=== PATIENT | female | born 1950 | race Caucasian/White ===

== ENCOUNTER 2016-11-22 20:43 | Inpatient (IN) | payer OTHER ==
[~2016-11-22] VITALS: Ht 139.7 cm; Wt 51.0 kg
[~2016-11-22 20:43] MED LIST: ALBUAER2 INH; AMLO5TAB4 PO; ASPI81TA28 PO; ATEN100T PO; DULA1INJ; EFF75 PO; HYDR-4313 PO; LEVO50TA PO; LISI-461 PO; LORA1TAB13 PO; SIMV40TA2 PO; TOPI100T20 PO; VENL150C56 PO
[2016-11-22] MEDS ORDERED: LSNP/30 PO (21:07)
[2016-11-22] MEDS ORDERED: SNG10 PO (21:07)
[2016-11-22] MEDS ORDERED: SODIUM CHLORIDE 0.9% 1000ML 1,000 ML IV STA (21:26)
[2016-11-22] MEDS ORDERED: ONDANSETRON INJ 2 MG/ML 2 ML VIAL IV STA (21:26)
[2016-11-22] MEDS ORDERED: ACETAMINOPHEN 500 MG TAB PO STA (21:26)
--- NOTE | 2016-11-22 21:36 | EMERGENCY ROOM VISIT NOTE ---
History Report prepared by Cyndi: Irwin Wong Under the Supervision of: Dr. Melvin Uribe D.O. First contact with patient: 21:13 Chief Complaint: DIARRHEA Stated Complaint: DIARRHEA, COUGH Nursing Triage Summary: PT presents with generalized illness, since . PT presents with cough/fever, lungs are decreased with rhonchi all throughout entire payen. PT has sore throat, red in appearance. PT also has abd tenderness to bilateral upper quadrants, with hyperactive bowel sounds in all quadrants, PT had diarrhea X 6 today. PT upon arrival noted to be lethargic, but oriented X 3 History of Present Illness The patient is a 66 year old female who presents to the Emergency Room with complaints of diarrhea that began two months ago. This history is limited due to the patient's mild confusion. The patient has been having this diarrhea with a cough, sore throat, headache, nausea, vomiting, rhinorrhea, and fever. Her illness has been persistent. The patient was on antibiotics, but she does not remember why. The patient is very lethargic. She denies any urinary symptoms. She has not taken any medications for her symptoms. She does not know if she has had a problem with a stool infection before. The patient takes Synthroid, an antidepressant, Topamax, and medications to help her blood pressure. Source of History: patient History Limited By: AMS Onset: two months ago Position: other (GI) Symptom Intensity: moderate Quality: other (diarrhea) Timing: other (persistent) Associated Symptoms: + abdominal pain, + cough, + fevers, + headache, + nausea, + sorethroat, + vomiting, No urinary symptoms Note: The patient has been confused lately. Review of Systems Limited due to mild confusion. Past Medical & Surgical Medical Problems: (1) Altered mental status (2) ASTHMA, UNSPECIFIED (3) DIAB SERGO WO COMPL, TYPE II OR UNSPEC TYPE, NOT UNCNTRLD (4) HX OF BREAST MALIGNANCY (5) HYPERLIPIDEMIA NEC/NOS (6) SIRS (systemic inflammatory response syndrome) (7) SYNCOPE AND COLLAPSE Family History Cancer Diabetes mellitus Hypertension Kidney disease Lung disease Seizures Social History Smoking Status: Never Smoker Alcohol Use: none Drug Use: none Marital Status: single Housing Status: lives with family Occupation Status: unemployed Current/Historical Medications Scheduled Amlodipine Besylate (Norvasc), 5 MG PO DAILY Aspirin (Aspirin Ec), 81 MG PO DAILY Atenolol (Tenormin), 100 MG PO DAILY Dulaglutide (Trulicity), weekly Levothyroxine Sodium (Synthroid), 75 MCG PO DAILY Lisinopril (Zestril), 30 MG PO BID Montelukast Sod (Montelukast Sodium), 10 MG PO Q2D Simvastatin (Zocor), 30 MG PO QPM Topiramate (Topamax), 200 MG PO BID Venlafaxine Hcl (Effexor), 75 MG PO DAILY Venlafaxine Hcl (Effexor Extended Rel), 1 CAP PO DAILY Scheduled PRN Acetaminophen/Hydrocodone (Hydrocodone/Acetaminophen 5-325 mg), 1 TAB PO DAILY PRN for Pain Albuterol (Ventolin Hfa), 1-2 PUFFS INH Q4-6HRS PRN for SOB/Wheezing Lorazepam (Lorazepam), 0.5-1 MG PO DAILY PRN for Anxiety Allergies Coded Allergies: Fentanyl (Verified Allergy, Severe, MARKED CONFUSION W/ ABSENCE OF SEDATION, 11/06/14) Midazolam (Verified Allergy, Severe, MARKED CONFUSION W/ ABSENCE OF SEDATION, 11/06/14) Lamotrigine (Verified Allergy, Unknown, RASH, 11/06/14) Phenytoin (Verified Allergy, Unknown, RASH, 11/06/14) Physical Exam Vital Signs Date Time Temp Pulse Resp B/P Pulse Ox O2 Delivery O2 Flow Rate FiO2 11/22/16 23:06 88 133/67 97 Room Air 11/22/16 21:02 99 11/22/16 20:54 100 Room Air 11/22/16 20:49 38.1 103 22 175/140 100 Room Air Physical Exam GENERAL: Patient is awake and mildly anxious appearing. Does not appear to be in pain, but appears to be somewhat distracted. EYES: The conjunctivae are clear. The pupils are round and reactive. EARS, NOSE, MOUTH AND THROAT: The nose is without any evidence of any deformity. Mucous membranes are dry tongue is midline NECK: The neck is nontender and supple. RESPIRATORY: Diminished throughout, scattered rhonchi. No tachypnea or conversational dyspnea. CARDIOVASCULAR: Regular rate and rhythm noted there no murmurs rubs or gallops normal S1 normal S2 GASTROINTESTINAL: The abdomen is soft. Bowel sounds are present in all quadrants. Abdomen is diffusely tender. No specific guarding or rigidity. MUSCULOSKELETAL/EXTREMITIES: There is no evidence of gross deformity full range of motion is noted in the hips and shoulders. Trace bilateral pedal edema. SKIN: There is no obvious evidence of any rash. There are no petechiae, pallor or cyanosis noted. NEUROLOGIC: Awake, alert, oriented to person but not place, time, or situation. Pressured to answer questions. Medical Decision & Procedures ER Provider Diagnostic Interpretation: Radiology results per my review and radiologist interpretation: CHEST ONE VIEW PORTABLE CLINICAL HISTORY: Sepsis COUGH COMPARISON STUDY: 03/31/2015 FINDINGS: The cardiac and mediastinal contours are normal. There is no evidence of focal pulmonary consolidation. There is no evidence of failure. No pleural effusions are visualized.[ IMPRESSION: No active disease in the chest. Electronically signed by: Zane Gates M.D. 11/22/2016 9:55 PM Dictated Date/Time: 11/22/2016 9:[address] of the head as well as the abdomen and pelvis were obtained in the emergency department. The report reviewed. Preliminary Findings Only See Final Report For Complete Findings CT HEAD: Prior from 11/15/[address] from 03/16/2008. No evidence of acute intracranial abnormality. Volume loss and small vessel disease. Paranasal sinus disease with fluid levels in the frontal sinuses, ethmoid air cells and sphenoid sinuses. May represent acute sinusitis. Mastoid air cells are clear. CT ABDOMEN & PELVIS: Prior from 12/28/2014 Noncontrast study Mild dilation of the left ureter and asymmetric left perinephric stranding. No obvious obstructing calculus. DDX includes recently passed calculus, infection, nonvisualized obstructing calculus or lesion. Normal appendix. Small amount of free fluid in the pelvis. No bowel obstruction Similar multiple small retroperitoneal nodes up to 8 mm short axis. Nonspecific. Radiologist: Zev Nevarez M.D. Study ready at 23:09 and initial results transmitted at 23:35 Laboratory Results 11/22/16 20:55 Red Blood Count 3.65, Mean Corpuscular Volume 85.5, Mean Corpuscular Hemoglobin 30.1, Mean Corpuscular Hemoglobin Concent 35.3, Mean Platelet Volume 10.8, Neutrophils (%) (Auto) 81.7, Lymphocytes (%) (Auto) 7.5, Monocytes (%) (Auto) 10.4, Eosinophils (%) (Auto) 0.0, Basophils (%) (Auto) 0.1, Neutrophils # (Auto ) 16.14, Lymphocytes # (Auto) 1.49, Monocytes # (Auto) 2.05, Eosinophils # (Auto ) 0.00, Basophils # (Auto) 0.01 11/22/16 20:55 Test 11/22/16 00:00 11/22/16 20:55 11/22/16 22:13 Influenza Type A Antigen Neg for Influ A (NEG) Influenza Type B Antigen Neg for Influ B (NEG) White Blood Count 19.75 K/uL (4.8-10.8) Red Blood Count 3.65 M/uL (4.2-5.4) Hemoglobin 11.0 g/dL (12.0-16.0) Hematocrit 31.2 % (37-47) Mean Corpuscular Volume 85.5 fL (80-100) Mean Corpuscular Hemoglobin 30.1 pg (25-34) Mean Corpuscular Hemoglobin Concent 35.3 g/dl (32-36) Platelet Count 232 K/uL (130-400) Mean Platelet Volume 10.8 fL (7.4-10.4) Neutrophils (%) (Auto) 81.7 % Lymphocytes (%) (Auto) 7.5 % Monocytes (%) (Auto) 10.4 % Eosinophils (%) (Auto) 0.0 % Basophils (%) (Auto) 0.1 % Neutrophils # (Auto) 16.14 K/uL (1.4-6.5) Lymphocytes # (Auto) 1.49 K/uL (1.2-3.4) Monocytes # (Auto) 2.05 K/uL (0.11-0.59) Eosinophils # (Auto) 0.00 K/uL (0-0.5) Basophils # (Auto) 0.01 K/uL (0-0.2) RDW Standard Deviation 41.6 fL (36.4-46.3) RDW Coefficient of Variation 13.2 % (11.5-14.5) Immature Granulocyte % (Auto) 0.3 % Immature Granulocyte # (Auto) 0.06 K/uL (0.00-0.02) Erythrocyte Sedimentation Rate 58 mm/hr (0-21) Prothrombin Time 12.4 SECONDS (9.0-12.0) Prothromb Time International Ratio 1.2 (0.9-1.1) Activated Partial Thromboplast Time 32.9 SECONDS (21.0-31.0) Partial Thromboplastin Ratio 1.3 Anion Gap 16.0 mmol/L (3-11) Est Creatinine Clear Calc Drug Dose 17.8 ml/min Estimated GFR () 29.2 Estimated GFR (Non- 25.2 BUN/Creatinine Ratio 14.7 (10-20) Calcium Level 8.8 mg/dl (8.5-10.1) Phosphorus Level 1.3 mg/dl (2.5-4.9) Magnesium Level 1.7 mg/dl (1.8-2.4) Total Bilirubin 0.5 mg/dl (0.2-1) Aspartate Amino Transf (AST/SGOT) 17 U/L (15-37) Alanine Aminotransferase (ALT/SGPT) 18 U/L (12-78) Alkaline Phosphatase 68 U/L (45-117) Total Creatine Kinase 147 U/L (26-192) Creatine Kinase MB 0.6 ng/ml (0.5-3.6) Creatine Kinase MB Ratio 0.4 (0-3.0) Troponin I < 0.015 ng/ml (0-0.045) C-Reactive Protein 27.90 mg/dl (0-0.29) Total Protein 7.0 gm/dl (6.4-8.2) Albumin 3.0 gm/dl (3.4-5.0) Globulin 4.0 gm/dl (2.5-4.0) Albumin/Globulin Ratio 0.8 (0.9-2) Lipase 139 U/L (73-393) Urine Color YELLOW Urine Appearance CLOUDY (CLEAR) Urine pH 6.0 (4.5-7.5) Urine Specific [place] 1.012 (1.000-1.030) Urine Protein 2+ (NEG) Urine Glucose (UA) NEG (NEG) Urine Ketones 1+ (NEG) Urine Occult Blood 1+ (NEG) Urine Nitrite NEG (NEG) Urine Bilirubin NEG (NEG) Urine Urobilinogen NEG (NEG) Urine Leukocyte Esterase MODERATE (NEG) Urine WBC (Auto) >30 /hpf (0-5) Urine RBC (Auto) 5-10 /hpf (0-4) Urine Hyaline Casts (Auto) 1-5 /lpf (0-5) Urine Epithelial Cells (Auto) 10-20 /lpf (0-5) Urine Bacteria (Auto) 1+ (NEG) Laboratory results per my review. Medications Administered Medications (Trade) Dose Ordered Sig/Garcia Route Start Time Stop Time Status Last Admin Dose Admin Sodium Chloride (Nss 1000ml) 1,000 ml @ 999 mls/hr Q1H1M STAT IV 11/22/16 21:26 11/22/16 22:26 DC 11/22/16 22:49 999 MLS/HR Ondansetron HCl (Zofran Inj) 4 mg NOW STAT IV 11/22/16 21:26 11/22/16 21:29 DC 11/22/16 22:15 4 MG Acetaminophen (Tylenol Tab) 1,000 mg ONE STAT PO 11/22/16 21:26 11/22/16 21:29 DC 11/22/16 22:16 1,000 MG Magnesium Sulfate (Magnesium Sulfate) 1 gm NOW STAT IV 11/22/16 22:40 11/22/16 22:41 DC 11/22/16 22:40 1 GM ECG Indication: altered mental status Rate (beats per minute): 99 Rhythm: normal sinus Findings: no ectopy, other (No acute ST segment abnormalities) Comparison ECG Date: 03 April 2015 Change: no significant change ED Course 2112: The patient was evaluated in room B3. A complete history and physical examination were performed. 2125: Tylenol Tab 1,000 mg PO, Zofran Inj 4 mg IV, NSS 1,000 ml @ 999 mls/hr IV 2238: Levofloxacin 750 mg IV 2240: Magnesium Sulfate 1 gm IV 2250: The patient's sister in law is now in the room. She is concerned that the patient is more confused and lethargic than usual. 5: Upon reevaluation, the patient is resting. I discussed results and treatment plan with her and her sister in law. They verbalizes agreement and understanding. I spoke with Dr. Ayon of the [facility]. The patient will be evaluated for further management and care. Medical Decision Differential diagnosis: Etiologies such as viral syndrome, otitis, pharyngitis, pneumonia, influenza, meningitis, urinary tract infection, sepsis, bacteremia, as well as others were entertained. Nursing notes reviewed. Additional history was obtained from the patient's [id number]. The patient is a 66-year-old female who presented to emergency department with multiple complaints. She appeared to have a fever but was complaining of other complaints such as diarrhea or abdominal pain and headache. The patient started on IV fluids and IV antibiotics numerous department. She had what appeared to be a urinary tract infection on urinalysis. She was found have a very elevated white blood cell count and signs of pyelonephritis on CT the abdomen and pelvis. I discussed the patient's laboratory and radiographic studies with her and her [id number]. She was feeling much better on subsequent reevaluation. I also discussed his case with the on-call [facility] hospitalist group. They have agreed to evaluate the patient in the emergency department for further management and disposition. Consults Time Called: [phone] Consulting Physician: Dr. Gabo NIEVES Returned Call: [phone] He will be evaluating the patient for further management. Impression Primary Impression: Altered mental status Additional Impressions: UTI (urinary tract infection) Fever Diffuse abdominal pain Pansinusitis Scribe Attestation The scribe's documentation has been prepared under my direction and personally reviewed by me in its entirety. I confirm that the note above accurately reflects all work, treatment, procedures, and medical decision making performed by me. Departure Information Dispostion Being Evaluated By Hospitalist Referrals Janelle Mariano MD (PCP) Patient Instructions My [facility] Problem Qualifiers
[2016-11-22 21:37] LABS: HEMATOCRIT 31.2 % (37-47); MEAN CELL VOLUME 85.5 fL (80-100); MEAN CORPUSCULAR HEMOGLOBIN 30.1 pg (25-34); MEAN CORPUSCULAR HGB CONC 35.3 g/dl (32-36); MEAN PLATELET VOLUME 10.8 fL (7.4-10.4); PLATELET COUNT 232 K/uL (130-400); RED BLOOD COUNT 3.65 M/uL (4.2-5.4); WHITE BLOOD COUNT 19.75 K/uL (4.8-10.8)
[2016-11-22 21:47] LABS: INR 1.2 (0.9-1.1); PARTIAL THROMBOPLASTIN RATIO 1.3; PROTHROMBIN TIME (PATIENT) 12.4 SECONDS (9.0-12.0)
--- NOTE | 2016-11-22 21:57 | DIAGNOSTIC IMAGING REPORT ---
CHEST ONE VIEW PORTABLE CLINICAL HISTORY: Sepsis COUGH COMPARISON STUDY: 03/31/2015 FINDINGS: The cardiac and mediastinal contours are normal. There is no evidence of focal pulmonary consolidation. There is no evidence of failure. No pleural effusions are visualized.[ IMPRESSION: No active disease in the chest. Electronically signed by: Zane Gates M.D. 11/22/2016 9:55 PM Dictated Date/Time: 11/22/2016 9:55 PM
[2016-11-22 22:04] LABS: ALT/SGPT 18 U/L (12-78); BLOOD UREA NITROGEN 29 mg/dl (7-18); BUN/CREATININE RATIO 14.7 (10-20); CALCIUM 8.8 mg/dl (8.5-10.1); CARBON DIOXIDE 16 mmol/L (21-32); CHLORIDE 101 mmol/L (98-107); GLUCOSE 210 mg/dl (70-99); MAGNESIUM 1.7 mg/dl (1.8-2.4); POTASSIUM 3.9 mmol/L (3.5-5.1); SODIUM 133 mmol/L (136-145)
[2016-11-22 22:08] LABS: BASO % 0.1 %; BASO ABS # 0.01 K/uL (0-0.2); COMPLETE YES; IG% 0.3 %; LYMPH % 7.5 %; LYMPH ABS # 1.49 K/uL (1.2-3.4); MONO % 10.4 %; NEUT % 81.7 %
[2016-11-22 22:18] LABS: ALB/GLOB RATIO 0.8 (0.9-2); ALKALINE PHOSPHATASE 68 U/L (45-117); AST/SGOT 17 U/L (15-37); CKMB/CK RATIO 0.4 (0-3.0); PHOSPHORUS 1.3 mg/dl (2.5-4.9)
[2016-11-22 22:35] LABS: MANUAL MICROSCOPIC REQUIRED? NO; REVIEW REQ? NO; URINE APPEARANCE CLOUDY (CLEAR); URINE BILIRUBIN NEG (NEG); URINE COLOR YELLOW; URINE NITRITE NEG (NEG); URINE SPECIFIC GRAVITY 1.012 (1.000-1.030); UROBILINOGEN NEG (NEG); ZZUR CULT IF INDIC CLEAN CATCH YES
[2016-11-22] MEDS ORDERED: LEVAQUIN 750MG / 150ML D5W IV STA (22:39)
[2016-11-22] MEDS ORDERED: MAGNESIUM SULFATE 1GM / D5W 1 GM BAG IV STA (22:40)
[2016-11-22] MEDS ORDERED: CEFEPIME IV 2,000 MG in DEXTROSE 5% 100ML 100 ML IV STA (23:38)
[2016-11-22] MEDS ORDERED: LORAZEPAM 1 MG TAB PO PRN (23:45)
[2016-11-23] VITALS (8 sets, daily range): BP systolic 124–165; BP diastolic 72–91; PULSE 69–100; TEMP 36.5–37.6; O2SAT 96–100; BMI 24.4
[2016-11-23] MEDS ORDERED: ALUMINUM/MAGNESIUM/SIMETH (MAALOX MAX) 30 ML UDC PO PRN
[2016-11-23] MEDS ORDERED: ACETAMINOPHEN 325 MG TAB PO PRN
[2016-11-23] MEDS ORDERED: ONDANSETRON INJ 2 MG/ML 2 ML VIAL IV PRN
[2016-11-23] MEDS ORDERED: EFFSR75 PO (00:08)
[2016-11-23] MEDS ORDERED: OXYCODONE/ACETAMINOPHEN 5-325 TAB PO PRN (00:15)
[2016-11-23] MEDS ORDERED: GUAIFENESIN/CODEINE 100MG/10MG 5ML UDC PO PRN (00:15)
[2016-11-23] MEDS ORDERED: ALBUTEROL 0.083% NEBU SOLN 3 ML VIAL INH PRN (00:15)
[2016-11-23] MEDS ORDERED: GLUCOSE 40% GEL 15 GM TUBE PO PRN (00:30)
[2016-11-23] MEDS ORDERED: GLUCAGON FOR INJ 1 MG VIAL SQ PRN (00:30)
[2016-11-23] MEDS ORDERED: DEXTROSE 50% 50 ML SYR IV PRN (00:30)
[2016-11-23] MEDS ORDERED: GLUCOSE 10 TABS/TUBE PO PRN (00:30)
[2016-11-23] MEDS ORDERED: LEVAQUIN 750MG / 150ML D5W IV ONE (00:49)
[2016-11-23] MEDS ORDERED: SODIUM PHOSPHATE 3 MMOL/1 ML INFUSION IV STA (00:52)
--- NOTE | 2016-11-23 01:05 | History and Physical ---
History & Physical Date & Time of Service: Nov 23, 2016 at 00:06 Chief Complaint: Diarrhea, Cough Primary Care Physician: Janelle Mariano MD History of Present Illness Source: patient, family 66 y/o FM Hx DM2, breast CA, asthma, hypothyroid, HPL, HTN, CKD3. Pt states she has had ongoing medical issues since 09/16. She states that she has had a persistent cough, intermittent diarrhea, headaches, weakness and abdominal pain. She was brought into the ER by her sister who adds that she has been periodically confused and lethargic the past 2 days. She denies significant SOB , CP or dysuria. She was febrile on arrival to the ER. Initial labs reveal leukocytosis, hyperglycemia, ARF and a + UA. Initial imaging reveals pansinusitis and pyelonephritis. She is lethargic but does not display confusion. She states she was treated over one month ago with a course of Augmentin, possibly for sinusitis. Past Medical/Surgical History Medical Problems: (1) ASTHMA, UNSPECIFIED Status: Resolved (2) DIAB SERGO WO COMPL, TYPE II OR UNSPEC TYPE, NOT UNCNTRLD Status: Resolved (3) HX OF BREAST MALIGNANCY Status: Resolved (4) HYPERLIPIDEMIA NEC/NOS Status: Resolved (5) SYNCOPE AND COLLAPSE Status: Resolved 6) Hypothyroid 7) Depression 8) Peripheral Neuropathy 9) CKD 3 Family History Cancer Diabetes mellitus Hypertension Kidney disease Lung disease Seizures Social History Smoking Status: Never Smoker Drug Use: none Marital Status: single Occupational Status: unemployed Immunizations History of Influenza Vaccine: No History of Tetanus Vaccine?: Unknown Tetanus Immunization Date: Jan 30, 2006 Pneumococcal Date: Feb 01, 2003 History of Hepatitis B Vaccine: Unknown Multi-Drug Resistant Organisms History of MDRO: No Allergies Coded Allergies: Fentanyl (Verified Allergy, Severe, MARKED CONFUSION W/ ABSENCE OF SEDATION, 11/06/14) Midazolam (Verified Allergy, Severe, MARKED CONFUSION W/ ABSENCE OF SEDATION, 11/06/14) Lamotrigine (Verified Allergy, Unknown, RASH, 11/06/14) Phenytoin (Verified Allergy, Unknown, RASH, 11/06/14) Home Medications Scheduled Amlodipine Besylate (Norvasc), 5 MG PO DAILY Aspirin (Aspirin Ec), 81 MG PO DAILY Atenolol (Tenormin), 100 MG PO DAILY Dulaglutide (Trulicity), weekly Levothyroxine Sodium (Synthroid), 75 MCG PO DAILY Lisinopril (Zestril), 30 MG PO BID Montelukast Sod (Montelukast Sodium), 10 MG PO Q2D Simvastatin (Zocor), 30 MG PO QPM Topiramate (Topamax), 200 MG PO BID Venlafaxine Hcl (Effexor), 75 MG PO DAILY Venlafaxine Hcl (Effexor Extended Rel), 1 CAP PO DAILY Scheduled PRN Acetaminophen/Hydrocodone (Hydrocodone/Acetaminophen 5-325 mg), 1 TAB PO DAILY PRN for Pain Albuterol (Ventolin Hfa), 1-2 PUFFS INH Q4-6HRS PRN for SOB/Wheezing Lorazepam (Lorazepam), 0.5-1 MG PO DAILY PRN for Anxiety Review of Systems Constitutional: + chills, + fever, + sweats, + weight loss Eyes: No eye pain, No worsening of vision ENT: + nasal symptoms, No hearing loss, No unusual epistaxis Respiratory: + cough, + sputum, + wheezing, No dyspnea at rest, No dyspnea on exertion, No shortness of breath Cardiovascular: No PND, No chest pain, No orthopnea Abdomen: No nausea, No pain Musculoskeletal: No joint pain, No muscle pain Genitourinary - Female: No dysuria, No urinary frequency, No urinary urgency Neurologic: No memory loss Psychiatric: + depression symptoms Endocrine: No fatigue Hematologic / Lymphatic: No abnormal bleeding/bruising Integumentary: No rash Allergic / Immunologic: No environmental allergies Physical Exam Vital Signs Date Time Temp Pulse Resp B/P Pulse Ox O2 Delivery O2 Flow Rate FiO2 11/22/16 23:06 88 133/67 97 Room Air 11/22/16 21:02 99 11/22/16 20:54 100 Room Air 11/22/16 20:49 38.1 103 22 175/140 100 Room Air General Appearance: WD/WN, no apparent distress, + pertinent finding (Pale thin elderly female - no distress - persistent dry cough.) Head: normocephalic, atraumatic Eyes: normal inspection, EOMI ENT: normal ENT inspection, pharynx normal Neck: supple, no adenopathy, thyroid normal Respiratory/Chest: chest non-tender, no respiratory distress, no accessory muscle use, + wheezing Cardiovascular: regular rate, rhythm, no edema, no gallop Abdomen/GI: normal bowel sounds, non tender, soft Back: normal inspection, no CVA tenderness Extremities/Musculoskelatal: normal inspection, no calf tenderness, normal capillary refill Neurologic/Psych: supportability engineer II-XII nml as tested, no motor/sensory deficits, alert, normal mood/affect, normal reflexes, oriented x 3 Skin: normal color, no rash, + pertinent finding (Pallor is present) Diagnostics Laboratory Results Results Past 24 Hours Test 11/22/16 20:55 11/22/16 22:13 Range/Units White Blood Count 19.75 4.8-10.8 K/uL Red Blood Count 3.65 4.2-5.4 M/uL Hemoglobin 11.0 12.0-16.0 g/dL Hematocrit 31.2 37-47 % Mean Corpuscular Volume 85.5 80-100 fL Mean Corpuscular Hemoglobin 30.1 25-34 pg Mean Corpuscular Hemoglobin Concent 35.3 32-36 g/dl Platelet Count 232 130-400 K/uL Mean Platelet Volume 10.8 7.4-10.4 fL Neutrophils (%) (Auto) 81.7 % Lymphocytes (%) (Auto) 7.5 % Monocytes (%) (Auto) 10.4 % Eosinophils (%) (Auto) 0.0 % Basophils (%) (Auto) 0.1 % Neutrophils # (Auto) 16.14 1.4-6.5 K/uL Lymphocytes # (Auto) 1.49 1.2-3.4 K/uL Monocytes # (Auto) 2.05 0.11-0.59 K/uL Eosinophils # (Auto) 0.00 0-0.5 K/uL Basophils # (Auto) 0.01 0-0.2 K/uL RDW Standard Deviation 41.6 36.4-46.3 fL RDW Coefficient of Variation 13.2 11.5-14.5 % Immature Granulocyte % (Auto) 0.3 % Immature Granulocyte # (Auto) 0.06 0.00-0.02 K/uL Erythrocyte Sedimentation Rate 58 0-21 mm/hr Prothrombin Time 12.4 9.0-12.0 SECONDS Prothromb Time International Ratio 1.2 0.9-1.1 Activated Partial Thromboplast Time 32.9 21.0-31.0 SECONDS Partial Thromboplastin Ratio 1.3 Sodium Level 133 136-145 mmol/L Potassium Level 3.9 3.5-5.1 mmol/L Chloride Level 101 98-107 mmol/L Carbon Dioxide Level 16 21-32 mmol/L Anion Gap 16.0 3-11 mmol/L Blood Urea Nitrogen 29 7-18 mg/dl Creatinine 2.00 0.60-1.20 mg/dl Est Creatinine Clear Calc Drug Dose 17.8 ml/min Estimated GFR () 29.2 Estimated GFR (Non- 25.2 BUN/Creatinine Ratio 14.7 10-20 Random Glucose 210 70-99 mg/dl Calcium Level 8.8 8.5-10.1 mg/dl Phosphorus Level 1.3 2.5-4.9 mg/dl Magnesium Level 1.7 1.8-2.4 mg/dl Total Bilirubin 0.5 0.2-1 mg/dl Aspartate Amino Transf (AST/SGOT) 17 15-37 U/L Alanine Aminotransferase (ALT/SGPT) 18 12-78 U/L Alkaline Phosphatase 68 45-117 U/L Total Creatine Kinase 147 26-192 U/L Creatine Kinase MB 0.6 0.5-3.6 ng/ml Creatine Kinase MB Ratio 0.4 0-3.0 Troponin I < 0.015 0-0.045 ng/ml C-Reactive Protein 27.90 0-0.29 mg/dl Total Protein 7.0 6.4-8.2 gm/dl Albumin 3.0 3.4-5.0 gm/dl Globulin 4.0 2.5-4.0 gm/dl Albumin/Globulin Ratio 0.8 0.9-2 Lipase 139 73-393 U/L Urine Color YELLOW Urine Appearance CLOUDY CLEAR Urine pH 6.0 4.5-7.5 Urine Specific [place] 1.012 1.000-1.030 Urine Protein 2+ NEG Urine Glucose (UA) NEG NEG Urine Ketones 1+ NEG Urine Occult Blood 1+ NEG Urine Nitrite NEG NEG Urine Bilirubin NEG NEG Urine Urobilinogen NEG NEG Urine Leukocyte Esterase MODERATE NEG Urine WBC (Auto) >30 0-5 /hpf Urine RBC (Auto) 5-10 0-4 /hpf Urine Hyaline Casts (Auto) 1-5 0-5 /lpf Urine Epithelial Cells (Auto) 10-20 0-5 /lpf Urine Bacteria (Auto) 1+ NEG Microbiology Results 11/22/16 Blood Culture, Received Pending 11/22/16 Blood Culture, Received Pending 11/22/16 Urine Culture, Received Pending Diagnostic Radiology CT head - pansinusitis CT Abd - Pyelonephritis L - ureter dilated - no evidence of colitis Impression Assessment and Plan 66 y/o FM Hx DM2, breast CA, asthma, hypothyroid, HPL, HTN, CKD3. Pt states she has had ongoing medical issues since 09/16. She states that she has had a persistent cough, intermittent diarrhea, headaches, weakness and abdominal pain. She was brought into the ER by her sister who adds that she has been periodically confused and lethargic the past 2 days. She denies significant SOB , CP or dysuria. She was febrile on arrival to the ER. Initial labs reveal leukocytosis, hyperglycemia, ARF and a + UA. Initial imaging reveals pansinusitis and pyelonephritis. 1) Fever - pt has evidence of both UTI w/pyelo and sinusitis - her lungs appear clear so that her cough may be the result of post-nasal drip There is evidence of pyelonephritis as well and her UA is (+). She c/o diarrhea and was recently on a course of Augmentin. Sputum cultures, an MRSA swab, urine cultures and stool/C diff cultures obtained. She will be started empirically on Cefepime and Flagyl. 2) DM - Sliding scale provided 3) Asthma - she is coughing and exhibiting wheezing - we will provide albuterol and start a course of steroids as it appears that her sinusitis has been persistent as well as her cough 4) Hypophosphatemia noted on labs - replaced - will recheck AM 5) Depression - cont Venlafaxine 6) CKD - Creat may be slighly above baseline - will provide IVF and recheck AM Full code - heparin prophylaxis Total time for this admit including chart review - review of labs and records - med rec - discussion with ER MD and pt 40 min Level of Care Telemetry Resuscitation Status FULL RESUSCITATION VTE Prophylaxis VTE Risk Assessment Done? Y/N: Yes Risk Level: Moderate Given or contraindicated: Unfractionated heparin SQ
[2016-11-23] MEDS ORDERED: SODIUM PHOSPHATE INJ 9 MMOL in SODIUM CHLORIDE 0.9% 250ML 250 ML IV SCH (04:30)
[2016-11-23] MEDS: SODIUM CHLORIDE 0.9% 1000ML 1,000 ML IV SCH ×2 (04:39→04:54)
[2016-11-23] MEDS ORDERED: CEFEPIME CONSULT ACTIVE PRN ×2 (04:45)
[2016-11-23] MEDS: METRONIDAZOLE / NSS 500 MG in PREMIXED NSS 100 ML IV SCH ×3 (04:54→20:07)
[2016-11-23] MEDS: METHYLPREDNISOLONE IV 40 MG in SYRINGE 0 ML IV SCH ×3 (05:12→20:07)
[2016-11-23] MEDS: LEVOTHYROXINE 75 MCG TAB PO SCH (06:01)
[2016-11-23] MEDS: HEPARIN SOD 5000 UNIT/0.5 ML CARP SQ SCH ×3 (06:01→21:24)
--- NOTE | 2016-11-23 06:55 | DIAGNOSTIC IMAGING REPORT ---
CT OF THE HEAD WITHOUT CONTRAST CLINICAL HISTORY: Headache. COMPARISON STUDY: MRI of the brain November 15, [address] March 16, 2008. CT DOSE: 786.15 mGy.cm TECHNIQUE: Helical axial images of the head were obtained without IV contrast. Automated exposure control was utilized for the study. FINDINGS: No acute intracranial hemorrhage, midline shift or mass effect is present. Ventricular system is stable. The basilar cisterns are patent. There are no extra-axial collections. White matter hypodensity suggests small vessel disease. There are no findings to suggest acute dural sinus thrombosis or acute territorial infarct. There is extensive mucosal thickening within the ethmoid sinuses with air-fluid levels within the ethmoid and sphenoid sinuses as well as the frontal sinuses. The mastoid air cells are only partially imaged on this exam. IMPRESSION: 1. No acute intracranial findings. 2. Extensive sinus mucosal thickening which suggests acute sinusitis. Electronically signed by: Raj Green M.D. 11/23/2016 6:53 AM Dictated Date/Time: 11/23/2016 6:51 AM
--- NOTE | 2016-11-23 07:40 | DIAGNOSTIC IMAGING REPORT ---
ABDOMEN AND PELVIS CT WITHOUT CONTRAST CT DOSE: HISTORY: diarrhea and fever, vomiting TECHNIQUE: Multiaxial CT images of the abdomen and pelvis were performed without contrast. COMPARISON STUDY: Abdomen and pelvis CT 12/28/2014. FINDINGS: There is a stable 3 mm nodule within the left lower lobe. Therefore, this is likely benign. No pneumoperitoneum. No pneumatosis. No suspicious lytic or blastic osseous lesions. The unenhanced liver, spleen, adrenal glands, gallbladder, pancreas, and right kidney are unremarkable. Asymmetric left-sided perinephric fat stranding/edema. No left-sided hydronephrosis. Bladder is decompressed. The uterus is surgically absent. Trace pelvic free fluid. Suboptimal evaluation for bowel pathology due to the lack of intravenous and oral contrast. However, there is no definite bowel wall thickening or obstruction. The visualized appendix is unremarkable. Slightly prominent left para-aortic lymph nodes which may be reactive. IMPRESSION: 1. Left perinephric fat stranding/edema without hydronephrosis. This could represent a pyelonephritis or recently passed stone. Recommend correlation with urinalysis. 2. No definite bowel wall thickening or obstruction. 3. Trace pelvic free fluid. Electronically signed by: Bertin Butler M.D. 11/23/2016 7:38 AM Dictated Date/Time: 11/23/2016 7:32 AM
[2016-11-23 07:56] LABS: BUN/CREATININE RATIO 14.1 (10-20); CALCIUM 8.2 mg/dl (8.5-10.1); CREATININE 1.8 mg/dl (0.60-1.20); MAGNESIUM 2.2 mg/dl (1.8-2.4); POTASSIUM 3.7 mmol/L (3.5-5.1)
[2016-11-23 08:04] LABS: PHOSPHORUS 1.9 mg/dl (2.5-4.9)
[2016-11-23] MEDS: AMLODIPINE BESYLATE 5 MG TAB PO SCH (08:04)
[2016-11-23] MEDS: ASPIRIN 81 MG ECTAB PO SCH (08:05)
[2016-11-23] MEDS: VENLAFAXINE HCL XR 75 MG CAPXR PO SCH (08:05)
[2016-11-23] MEDS: LISINOPRIL 10 MG TAB PO SCH ×2 (08:06→20:10)
[2016-11-23] MEDS: VENLAFAXINE HCL XR 150 MG CAPXR PO SCH (08:06)
[2016-11-23] MEDS: TOPIRAMATE 100 MG TAB PO SCH ×2 (08:07→20:09)
[2016-11-23] MEDS: POT PHOSPHATE MONOBASIC W/ SOD TAB PO SCH ×4 (08:07→20:08)
[2016-11-23] MEDS: INSULIN ASPART 100 UNITS/ML 3 ML PEN SC SCH ×4 (08:45→21:23)
--- NOTE | 2016-11-23 11:10 | Progress Note ---
Subjective Date of Service: Nov 23, 2016. Subjective Pt evaluation today including: conversation w/ patient Pt feels a bit improved from prior, but still not at her baseline. She no longer has a headache, but still with some confusion. Ate breakfast and did have some nausea, but no further emesis. Ongoing diarrhea that is unchanged. Ongoing lower abd pain b/l. Ongoing cough but not SOB. Some chest tightness with cough. Pt denies fever, LE pain or swelling. ROS as noted above, otherwise neg. Problem List Medical Problems: (1) Altered mental status Status: Acute (2) Diffuse abdominal pain Status: Acute (3) Fever Status: Acute (4) Pansinusitis Status: Acute (5) UTI (urinary tract infection) Status: Acute Objective Vital Signs Date Time Temp Pulse Resp B/P Pulse Ox O2 Delivery O2 Flow Rate FiO2 11/23/16 08:25 Room Air 11/23/16 07:53 37.4 95 20 164/81 97 Room Air Mechanical Ventilator 11/23/16 06:56 37.6 100 20 165/81 97 Room Air 11/23/16 03:42 37.0 89 24 154/91 100 Room Air 11/23/16 02:45 83 20 126/76 100 11/23/16 01:46 84 20 95/88 98 Room Air 11/23/16 00:26 81 11/23/16 00:22 81 18 121/71 97 Room Air 11/22/16 23:06 88 133/67 97 Room Air 11/22/16 21:02 99 11/22/16 20:54 100 Room Air 11/22/16 20:49 38.1 103 22 175/140 100 Room Air Physical Exam General Appearance: no apparent distress, + thin Respiratory/Chest: normal breath sounds, no respiratory distress Cardiovascular: regular rate, rhythm, no edema Abdomen: soft, + tenderness (lower abd) Extremities: non-tender, no pedal edema Neurologic/Psychiatric: alert, oriented x 3, + pertinent finding (difficulty remembering her discussion with nursing earlier today) Skin: normal color, warm/dry Laboratory Results Last 24 Hours Test 11/22/16 20:55 11/22/16 22:01 11/22/16 22:13 11/23/16 07:05 White Blood Count 19.75 K/uL Red Blood Count 3.65 M/uL Hemoglobin 11.0 g/dL Hematocrit 31.2 % Mean Corpuscular Volume 85.5 fL Mean Corpuscular Hemoglobin 30.1 pg Mean Corpuscular Hemoglobin Concent 35.3 g/dl Platelet Count 232 K/uL Mean Platelet Volume 10.8 fL Neutrophils (%) (Auto) 81.7 % Lymphocytes (%) (Auto) 7.5 % Monocytes (%) (Auto) 10.4 % Eosinophils (%) (Auto) 0.0 % Basophils (%) (Auto) 0.1 % Neutrophils # (Auto) 16.14 K/uL Lymphocytes # (Auto) 1.49 K/uL Monocytes # (Auto) 2.05 K/uL Eosinophils # (Auto) 0.00 K/uL Basophils # (Auto) 0.01 K/uL RDW Standard Deviation 41.6 fL RDW Coefficient of Variation 13.2 % Immature Granulocyte % (Auto) 0.3 % Immature Granulocyte # (Auto) 0.06 K/uL Erythrocyte Sedimentation Rate 58 mm/hr Prothrombin Time 12.4 SECONDS Prothromb Time International Ratio 1.2 Activated Partial Thromboplast Time 32.9 SECONDS Partial Thromboplastin Ratio 1.3 Sodium Level 133 mmol/L 135 mmol/L Potassium Level 3.9 mmol/L 3.7 mmol/L Chloride Level 101 mmol/L 105 mmol/L Carbon Dioxide Level 16 mmol/L 14 mmol/L Anion Gap 16.0 mmol/L 16.0 mmol/L Blood Urea Nitrogen 29 mg/dl 25 mg/dl Creatinine 2.00 mg/dl 1.80 mg/dl Est Creatinine Clear Calc Drug Dose 17.8 ml/min 18.9 ml/min Estimated GFR () 29.2 33.2 Estimated GFR (Non- 25.2 28.6 BUN/Creatinine Ratio 14.7 14.1 Random Glucose 210 mg/dl 174 mg/dl Calcium Level 8.8 mg/dl 8.2 mg/dl Phosphorus Level 1.3 mg/dl 1.9 mg/dl Magnesium Level 1.7 mg/dl 2.2 mg/dl Total Bilirubin 0.5 mg/dl Aspartate Amino Transf (AST/SGOT) 17 U/L Alanine Aminotransferase (ALT/SGPT) 18 U/L Alkaline Phosphatase 68 U/L Total Creatine Kinase 147 U/L Creatine Kinase MB 0.6 ng/ml Creatine Kinase MB Ratio 0.4 Troponin I < 0.015 ng/ml C-Reactive Protein 27.90 mg/dl Total Protein 7.0 gm/dl Albumin 3.0 gm/dl Globulin 4.0 gm/dl Albumin/Globulin Ratio 0.8 Lipase 139 U/L Bedside Lactic Acid Venous 1.15 mmol/L Urine Color YELLOW Urine Appearance CLOUDY Urine pH 6.0 Urine Specific [place] 1.012 Urine Protein 2+ Urine Glucose (UA) NEG Urine Ketones 1+ Urine Occult Blood 1+ Urine Nitrite NEG Urine Bilirubin NEG Urine Urobilinogen NEG Urine Leukocyte Esterase MODERATE Urine WBC (Auto) >30 /hpf Urine RBC (Auto) 5-10 /hpf Urine Hyaline Casts (Auto) 1-5 /lpf Urine Epithelial Cells (Auto) 10-20 /lpf Urine Bacteria (Auto) 1+ Hepatitis C Antibody Screen NEG Test 11/23/16 07:41 Bedside Glucose 188 mg/dl Assessment and Plan 66 y/o FM Hx DM2, breast CA, asthma, hypothyroid, HPL, HTN, CKD3. Pt states she has had ongoing medical issues since 09/16. She states that she has had a persistent cough, intermittent diarrhea, headaches, weakness and abdominal pain. She was brought into the ER by her sister who adds that she has been periodically confused and lethargic the past 2 days. She denies significant SOB , CP or dysuria. She was febrile on arrival to the ER. Initial labs reveal leukocytosis, hyperglycemia, ARF and a + UA. Initial imaging reveals pansinusitis and pyelonephritis. 1) Fever - pt has evidence of both UTI w/pyelo and sinusitis - her lungs appear clear so that her cough may be the result of post-nasal drip There is evidence of pyelonephritis as well and her UA is (+). She c/o diarrhea and was recently on a course of Augmentin, stool and cdiff pending Sputum cultures, an MRSA swab, urine cultures Cefepime and Flagyl (11/23) 2) DM - Sliding scale provided 3) Asthma - she is coughing and exhibiting wheezing - we will provide albuterol and start a course of steroids as it appears that her sinusitis has been persistent as well as her cough 4) Hypophosphatemia noted on labs - replaced - will recheck AM 5) Depression - cont Venlafaxine 6) CKD - Creat may be slighly above baseline Improving with IVF Confusion: in the setting of multiple infections, including sinusitis CT head neg for other acute issues Should improve as abx have more time to take effect Full code - heparin prophylaxis
[2016-11-23] MEDS: SIMVASTATIN 10 MG TAB PO SCH (20:10)
[2016-11-23] MEDS ORDERED: MONTELUKAST SOD 10 MG TAB PO SCH (21:00)
[2016-11-24] MEDS ORDERED: CEFEPIME IV 1,000 MG in DEXTROSE 5% 100ML 100 ML IV SCH ×2
[2016-11-24] MEDS: METRONIDAZOLE / NSS 500 MG in PREMIXED NSS 100 ML IV SCH ×2 (04:11→12:25)
[2016-11-24] MEDS: METHYLPREDNISOLONE IV 40 MG in SYRINGE 0 ML IV SCH ×2 (04:12→12:26)
[2016-11-24 04:27] VITALS: BP 136/78; PULSE 74; TEMP 36.4; O2SAT 96
[2016-11-24] MEDS: HEPARIN SOD 5000 UNIT/0.5 ML CARP SQ SCH ×3 (05:46→21:58)
[2016-11-24] MEDS: LEVOTHYROXINE 75 MCG TAB PO SCH (05:50)
[2016-11-24 06:44] LABS: HEMATOCRIT 26.7 % (37-47); MEAN CELL VOLUME 84.2 fL (80-100); MEAN CORPUSCULAR HEMOGLOBIN 29.7 pg (25-34); MEAN CORPUSCULAR HGB CONC 35.2 g/dl (32-36); MEAN PLATELET VOLUME 10.5 fL (7.4-10.4); PLATELET COUNT 186 K/uL (130-400); RED BLOOD COUNT 3.17 M/uL (4.2-5.4); WHITE BLOOD COUNT 14.15 K/uL (4.8-10.8)
[2016-11-24 07:19] LABS: BUN/CREATININE RATIO 22.4 (10-20); CALCIUM 8.2 mg/dl (8.5-10.1); CREATININE 1.6 mg/dl (0.60-1.20); MAGNESIUM 2.2 mg/dl (1.8-2.4); POTASSIUM 3.2 mmol/L (3.5-5.1)
[2016-11-24 07:40] VITALS: BP 109/63; PULSE 62; TEMP 36.8; O2SAT 96
[2016-11-24] MEDS: VENLAFAXINE HCL XR 150 MG CAPXR PO SCH (08:20)
[2016-11-24] MEDS: TOPIRAMATE 100 MG TAB PO SCH ×2 (08:20→21:20)
[2016-11-24] MEDS: VENLAFAXINE HCL XR 75 MG CAPXR PO SCH (08:20)
[2016-11-24] MEDS: AMLODIPINE BESYLATE 5 MG TAB PO SCH (08:21)
[2016-11-24] MEDS: ASPIRIN 81 MG ECTAB PO SCH (08:21)
[2016-11-24] MEDS: POT PHOSPHATE MONOBASIC W/ SOD TAB PO SCH ×4 (08:21→21:18)
[2016-11-24] MEDS: LISINOPRIL 10 MG TAB PO SCH ×2 (08:22→21:23)
[2016-11-24] MEDS: INSULIN ASPART 100 UNITS/ML 3 ML PEN SC SCH ×4 (08:28→21:58)
--- NOTE | 2016-11-24 10:55 | Clinical Documentation Query ---
QUERY 1 OF [address] JACOBSEN, In your clinical opinion is this patient being managed for: ( x) Sepsis POA ( ) Other explanation of clinical findings (Please Explain) ( ) Unable to determine (Please Define) ( ) Need to Discuss ( ) Not Agree The medical record reflects the following clinical findings, treatment, and risk factors. Clinical Indicators: 66 yo female presenting with confusion and fever. WBC 19.75, ESR 58, CRP 27.9, BUN 29, Cr 2, anion gap 16. Blood cultures x 2 positive for gram negative bacilli. VS 38.1-103-22, 175/140 Treatment: IV fluid bolus then continuous, IV cefepime, IV flagyl, hines cultures, tylenol Risk Factors: age, DM, UTI with pyelonephritis, sinusitis QUERY 2 OF 3 In your clinical opinion is this patient being managed for: ( x ) Metabolic encephalopathy ( ) Other explanation of clinical findings (Please Explain) ( ) Unable to determine (Please Define) ( ) Need to Discuss ( ) Not Agree The medical record reflects the following clinical findings, treatment, and risk factors. Clinical Indicators: Pt reportedly more confused and lethargic. CT head showed acute sinusitis. Febrile with temp of 38.1, Cr 2.0 Treatment: IV fluids, IV cefepime and IV flagyl, CT head Risk Factors: UTI, pyelonephritis, acute renal failure, sinusitis, sepsis QUERY 3 OF 3 In your clinical opinion is this patient being managed for: (x ) Acute kidney failure ( ) Other explanation of clinical findings (Please Explain) ( ) Unable to determine (Please Define) ( ) Need to Discuss ( ) Not Agree The medical record reflects the following clinical findings, treatment, and risk factors. Clinical Indicators: BUN 29, Cr 2. Review of EMR showed baseline Cr of 1.6-1.7 over the past 2 years. Progress note indicates pt with CKD -- Cr may be slighly above baseline Treatment: IV fluid bolus then continuous, IV cefepime, IV flagyl, serial PRP levels Risk Factors: age, dehydration, UTI, sepsis, DM, HTN Please clarify and document your clinical opinion in the progress notes and discharge summary. Terms such as "probable", "suspected", "likely", "questionable", "possible", or "still to be ruled out" are acceptable. IF IN AGREEMENT, YOU MUST DOCUMENT ABOVE DIAGNOSTIC STATEMENT IN DAILY PROGRESS NOTES AND DISCHARGE SUMMARY. This document is not part of the patient's record. Thank You, Jackie Aguilar RN [phone]
[2016-11-24 11:34] VITALS: BP 124/73; PULSE 65; TEMP 36.4; O2SAT 98
[2016-11-24] MEDS ORDERED: CIPROFLOXACIN CONSULT ACTIVE PRN ×2 (12:15)
--- NOTE | 2016-11-24 13:03 | Progress Note ---
Subjective Date of Service: Nov 24, 2016. Subjective Pt evaluation today including: conversation w/ patient Pt notes that she is improving today. Still a big foggy, but feels her recall ability is returning. She still has diarrhea that is unchanged. Abd pain is mostly resolved. No n/v. Still with a bit of a headache at times, but better. Pt denies fever, SOB, chest pain, LE pain or swelling. Tolerated breakfast without issue. ROS as noted above, otherwise neg. Problem List Medical Problems: (1) Altered mental status Status: Acute (2) Diffuse abdominal pain Status: Acute (3) Fever Status: Acute (4) Pansinusitis Status: Acute (5) UTI (urinary tract infection) Status: Acute Objective Vital Signs Date Time Temp Pulse Resp B/P Pulse Ox O2 Delivery O2 Flow Rate FiO2 11/24/16 12:30 Room Air 11/24/16 11:34 36.4 65 18 124/73 98 Room Air 11/24/16 08:20 Room Air 11/24/16 07:40 36.8 62 16 109/63 96 Room Air 11/24/16 04:27 36.4 74 18 136/78 96 Room Air 11/24/16 04:00 Room Air 11/24/16 00:00 Room Air 11/23/16 23:15 36.9 75 18 141/79 97 Room Air 11/23/16 20:14 74 151/83 11/23/16 20:10 Room Air 11/23/16 20:05 36.5 69 20 124/72 96 Room Air 11/23/16 16:03 Room Air 11/23/16 14:58 36.9 74 20 128/79 97 Room Air Physical Exam Comments: General Appearance: no apparent distress, + thin Respiratory/Chest: normal breath sounds, no respiratory distress Cardiovascular: regular rate, rhythm, no edema Abdomen: soft, tenderness--resolved Extremities: non-tender, no pedal edema Neurologic/Psychiatric: alert, oriented x 3, + pertinent finding (pt is with quite clear cognition today, sitting up in bed, smiling) Skin: normal color, warm/dry Laboratory Results Last 24 Hours Test 11/23/16 16:14 11/23/16 20:49 11/24/16 06:25 11/24/16 07:28 Bedside Glucose 266 mg/dl 239 mg/dl 249 mg/dl White Blood Count 14.15 K/uL Red Blood Count 3.17 M/uL Hemoglobin 9.4 g/dL Hematocrit 26.7 % Mean Corpuscular Volume 84.2 fL Mean Corpuscular Hemoglobin 29.7 pg Mean Corpuscular Hemoglobin Concent 35.2 g/dl RDW Standard Deviation 41.5 fL RDW Coefficient of Variation 13.4 % Platelet Count 186 K/uL Mean Platelet Volume 10.5 fL Sodium Level 135 mmol/L Potassium Level 3.2 mmol/L Chloride Level 105 mmol/L Carbon Dioxide Level 17 mmol/L Anion Gap 13.0 mmol/L Blood Urea Nitrogen 36 mg/dl Creatinine 1.60 mg/dl Est Creatinine Clear Calc Drug Dose 21.8 ml/min Estimated GFR () 38.2 Estimated GFR (Non- 33.0 BUN/Creatinine Ratio 22.4 Random Glucose 243 mg/dl Calcium Level 8.2 mg/dl Phosphorus Level 4.0 mg/dl Magnesium Level 2.2 mg/dl Test 11/24/16 11:43 Bedside Glucose 376 mg/dl Assessment and Plan 66 y/o FM Hx DM2, breast CA, asthma, hypothyroid, HPL, HTN, CKD3. Pt states she has had ongoing medical issues since 09/16. She states that she has had a persistent cough, intermittent diarrhea, headaches, weakness and abdominal pain. She was brought into the ER by her sister who adds that she has been periodically confused and lethargic the past 2 days. She denies significant SOB , CP or dysuria. She was febrile on arrival to the ER. Initial labs reveal leukocytosis, hyperglycemia, ARF and a + UA. Initial imaging reveals pansinusitis and pyelonephritis. 1) Fever - early sepsis with metabolic encephalopathy POA. Pt has evidence of both UTI w/pyelo and sinusitis - her lungs appear clear so that her cough may be the result of post-nasal drip UA and cx noted, blood cx + x2 with likely same as urine Cefepime and Flagyl (11/23) -> flagyl and cipro 11/24 She c/o diarrhea and was recently on a course of Augmentin, stool and cdiff neg Start probiotic 2) DM - SSI PRN 3) Asthma - she is coughing and exhibiting wheezing - Decrease steroids to 40mg PO BID today 4) Hypophosphatemia noted on labs - replaced - 5) Depression - cont Venlafaxine 6) acute on CKD - Creat may be slighly above baseline Improving with IVF Confusion: in the setting of multiple infections, including sinusitis and is improving CT head neg for other acute issues Should improve as abx have more time to take effect Full code - heparin prophylaxis
[2016-11-24] MEDS ORDERED: NURSING VERBAL MED ORDER ONE ×2 (14:15→16:15)
[2016-11-24] MEDS ORDERED: INSULIN ASPART 100 UNITS/ML 3 ML PEN SC ONE (14:30)
[2016-11-24 15:39] VITALS: Ht 139.7 cm; Wt 51.0 kg
[2016-11-24] MEDS: LACTOBACILLUS ACIDOPHILUS (FLORANEX) TAB PO SCH (16:25)
[2016-11-24] MEDS ORDERED: INSULIN ASPART 100 UNITS/ML 3 ML PEN SC SCH (16:30)
[2016-11-24 20:16] VITALS: BP 119/77; PULSE 72; TEMP 36.9; O2SAT 98
[2016-11-24] MEDS: CIPROFLOXACIN 250 MG TAB PO SCH (21:18)
[2016-11-24] MEDS: METRONIDAZOLE 500 MG TAB PO SCH (21:19)
[2016-11-24 21:20] VITALS: BP 134/76; PULSE 70; O2SAT 98
[2016-11-24] MEDS: SIMVASTATIN 10 MG TAB PO SCH (21:20)
[2016-11-24] MEDS ORDERED: INSULIN GLARGINE PER SC SCH (21:45)
[2016-11-24] MEDS ORDERED: INSULIN ASPART 100 UNITS/ML 3 ML PEN SC STA ×2 (21:46→23:22)
[2016-11-24 23:30] VITALS: BP 146/75; PULSE 65; TEMP 36.7; O2SAT 97
[2016-11-25 04:57] VITALS: BP 111/54; PULSE 59; TEMP 36.2; O2SAT 99
[2016-11-25] MEDS: HEPARIN SOD 5000 UNIT/0.5 ML CARP SQ SCH (05:21)
[2016-11-25] MEDS: LEVOTHYROXINE 75 MCG TAB PO SCH (05:22)
[2016-11-25] MEDS: METRONIDAZOLE 500 MG TAB PO SCH (05:22)
[2016-11-25 07:20] VITALS: BP 151/83; PULSE 59; TEMP 36.5; O2SAT 98
[2016-11-25 08:00] VITALS: O2SAT 98
[2016-11-25] MEDS: LACTOBACILLUS ACIDOPHILUS (FLORANEX) TAB PO SCH (08:05)
[2016-11-25 08:12] LABS: CREATININE 1.7 mg/dl (0.60-1.20)
[2016-11-25] MEDS: VENLAFAXINE HCL XR 150 MG CAPXR PO SCH (08:53)
[2016-11-25] MEDS: ASPIRIN 81 MG ECTAB PO SCH (08:55)
[2016-11-25] MEDS: VENLAFAXINE HCL XR 75 MG CAPXR PO SCH (08:55)
[2016-11-25] MEDS: AMLODIPINE BESYLATE 5 MG TAB PO SCH (08:55)
[2016-11-25] MEDS: TOPIRAMATE 100 MG TAB PO SCH (08:55)
[2016-11-25] MEDS: POT PHOSPHATE MONOBASIC W/ SOD TAB PO SCH (08:55)
[2016-11-25] MEDS: LISINOPRIL 10 MG TAB PO SCH (08:56)
[2016-11-25] MEDS: CIPROFLOXACIN 250 MG TAB PO SCH (08:56)
[2016-11-25] MEDS: INSULIN ASPART 100 UNITS/ML 3 ML PEN SC SCH (09:13)
[2016-11-25] MEDS ORDERED: LCTX PO (10:09)
[2016-11-25] MEDS ORDERED: MTR500 PO (10:09)
[2016-11-25] MEDS ORDERED: CPR250 PO (10:09)
--- NOTE | 2016-11-25 10:13 | Discharge Instructions ---
Discharge Instructions Admission Reason for Admission: Ams, Sirs Discharge Discharge Diagnosis / Problem: Acute sinusitis, UTI with pyelnephritis Discharge Goals Goal(s): Decrease discomfort, Improve function, Increase independence Activity Recommendations Activity Limitations: resume your previous activity . Instructions / Follow-Up Instructions / Follow-Up When you get home, you should take your Trulicity since you missed your Wednesday dosing. Wednesday will be your new weekly dosing day. You should use your albuterol every 6 hours while you are awake for the next week, even if your breathing feels fine. You should check your blood sugars twice a day for the next few days while you readjust to being back on Trulicity Dr. Sinclair in 3-[address] Mariano in 3-5 days Current Hospital Diet Patient's current hospital diet: AHA Diet (Heart Healthy), Diabetes Type 2 Diet Discharge Diet Recommended Diet: Diabetes Type 2 Diet Pending Studies Studies pending at discharge: no Laboratory Results Hemoglobin A1c Test 10/12/16 14:00 Range/Units Estimated Average Glucose 143 mg/dl Hemoglobin A1c 6.6 H 4.5-5.6 % Medical Emergencies . Who to Call and When: Medical Emergencies: If at any time you feel your situation is an emergency, please call 911 immediately. . Non-Emergent Contact Non-Emergency issues call your: Primary Care Provider . . "Provider Documentation" section prepared by Seullen Patel. VTE Core Measure Inpt VTE Proph given/why not?: Unfractionated heparin SQ
--- NOTE | 2016-11-25 10:16 | Discharge Summary ---
Discharge Summary Admission Date: Nov 22, 2016 at 23:55 Discharge Date: Nov 25, 2016 Discharge Disposition: Home Principal Diagnosis: Sepsis with metabolic encephalopathy Problems/Secondary Diagnoses: Acute sinusitis UTI/pyelo DM HTN HLD CKD III Asthma Hypothyroid Depression Hx of breast ca Immunizations: Have You Had Influenza Vaccine: No History of Tetanus Vaccine?: Unknown Tetanus Immunization Date: Jan 30, 2006 Pneumococcal Date: Feb 01, 2003 History of Hepatitis B Vaccine: Unknown Medication Reconciliation New Medications: Ciprofloxacin (Ciprofloxacin HCl) 250 Mg Tab 250 MG PO Q12 for 10 Days, #20 TAB Lactobacillus Acidophilus (Floranex) 1 Tab Tab 4 TAB PO TIDM for 30 Days, #90 TAB Metronidazole (Metronidazole) 500 Mg Tab 500 MG PO Q8 for 10 Days, #30 TAB Continued Medications: Acetaminophen/Hydrocodone (Hydrocodone/Acetaminophen 5-325 mg) 1 Ea Tab 1 TAB PO DAILY PRN for Pain Albuterol (Ventolin Hfa) Aers 1-2 PUFFS INH Q4-6HRS PRN for SOB/Wheezing Amlodipine Besylate (Norvasc) 5 Mg Tab 5 MG PO DAILY Aspirin (Aspirin Ec) 81 Mg Tab 81 MG PO DAILY Atenolol (Tenormin) 100 Mg Tab 100 MG PO DAILY Dulaglutide (Trulicity) 0.75 Mg/0.5 Ml Inj weekly Levothyroxine Sodium (Synthroid) 50 Mcg Tab 75 MCG PO DAILY Lisinopril (Zestril) 30 Mg Tab 30 MG PO BID, #180 Lorazepam (Lorazepam) 1 Mg Tab 0.5-1 MG PO DAILY PRN for Anxiety Montelukast Sod (Montelukast Sodium) 10 Mg Tab 10 MG PO Q2D, #30 Simvastatin (Zocor) 40 Mg Tab 30 MG PO QPM Topiramate (Topamax) 100 Mg Tab 200 MG PO BID Venlafaxine Hcl (Effexor Extended Rel) 150 Mg Cap 1 CAP PO DAILY for 30 Days, #30 CAP 1 Refill Venlafaxine Hcl (Effexor Extended Rel) 75 Mg Capcr 75 MG PO DAILY, #30 Discharge Exam Pt states she feels much improved. Still with a bit of headache and abd pain that moves across her abd, but better overall and would like to go home. She has had no issues tolerating PO. Ongoing diarrhea. Pt denies fever, SOB, chest pain, n/v, LE pain or swelling. ROS as noted above, otherwise neg. Physical Exam: General Appearance: WD/WN, no apparent distress Respiratory/Chest: normal breath sounds, no respiratory distress Cardiovascular: regular rate, rhythm, no edema Abdomen / GI: non tender, soft Extremities: no calf tenderness, no pedal edema Neurologic/Psychiatric: alert, normal mood/affect Skin: normal color, warm/dry Hospital Course 66 y/o FM Hx DM2, breast CA, asthma, hypothyroid, HPL, HTN, CKD3. Pt states she has had ongoing medical issues since 09/16. She states that she has had a persistent cough, intermittent diarrhea, headaches, weakness and abdominal pain. She was brought into the ER by her sister who adds that she has been periodically confused and lethargic the past 2 days. She denies significant SOB , CP or dysuria. She was febrile on arrival to the ER. Initial labs reveal leukocytosis, hyperglycemia, ARF and a + UA. Initial imaging reveals pansinusitis and pyelonephritis. 1) Fever - early sepsis with metabolic encephalopathy POA. Pt has evidence of both UTI w/pyelo and sinusitis - her lungs appear clear so that her cough may be the result of post-nasal drip UA and cx noted, blood cx + x2 with likely same as urine Cefepime and Flagyl (11/23) -> flagyl and cipro 11/24 She c/o diarrhea and was recently on a course of Augmentin, stool cx and cdiff neg Probiotic 2) DM - SSI PRN while admitted, likely related to no access to Trulicity and steroids Pt only on steroids for 2 days, will stop on d/c Pt missed her Trulicity dosing on Wednesday due to admission, advised to resume this once home Pt has a glucometer and she should check her BS BID during the next few days She does not wish to use SSI at home Pt had many questions about her DM regimen. She does state that she was taken off metformin due to her kidneys, I advised it was likely related to risk of lactic acidosis. She states she had no issues with metformin and would like to return to that if possible. I advised pt to discuss with new statistical methods professor Dr. Sinclair 3) Asthma - concern for wheezing on admission, however not noted during my exams and steroids causing increased BS Will d/c steroids Advised to use albuterol q6h for 1 week scheduled 4) Hypophosphatemia noted on labs - replaced - 5) Depression - cont Venlafaxine 6) acute on CKD - Appears to be at baseline, around 1.6 s/p IVF Cr on d/c 1.6 Confusion: in the setting of multiple infections, including sinusitis and is improving CT head neg for other acute issues Ongoing improvement as abx have more time to take effect Total Time Spent: Greater than 30 minutes This includes examination of the patient, discharge planning, medication reconciliation, and communication with other providers. Discharge Instructions Please refer to the electronic Patient Visit Report (Discharge Instructions) for additional information. Follow-Up Dr. Sinclair in 3-[address] Mariano in 3-5 days Additional Copies To Janae Sinclair M.D.; Janelle Mariano MD
[2016-11-25 10:30] VITALS: BP 151/83; PULSE 59; TEMP 36.5; O2SAT 98
[2016-12-16] MEDS ORDERED: TOPI200T14 PO (14:48)
[2016-12-16] MEDS ORDERED: LEVO75TA5 PO (14:48)
[2016-12-16] MEDS ORDERED: METO5TAB5 PO (14:48)
[2016-12-16] MEDS ORDERED: REPA0.5T PO (14:49)
[2016-12-28] MEDS ORDERED: PRED1SUS3 OPL (07:15)
[2016-12-28] MEDS ORDERED: PRED1SUS3 OPR (07:15)
[2017-01-14] MEDS ORDERED: FLVHFA110 INH (15:26)
[2017-01-14] MEDS ORDERED: ALBU18002 INH (15:26)
[2017-06-08] MEDS ORDERED: NVLGI/PEN SQ (15:19)
[2017-06-08] MEDS ORDERED: FLUT1INH7 INH (15:19)
[2017-06-08] MEDS ORDERED: FLUT27.53 NAE (15:19)
[2017-06-08] MEDS ORDERED: VNTHFA/IN INH (15:19)
[2017-06-08] MEDS ORDERED: REPA2TAB13 PO (15:19)
== END 2016-11-25 11:16 | disposition home or self-care (01) | DRG 871 ==
LOC: ENRESERVDT → ENRESERVTM → EDBD 20:43 → C.EDB 20:44 → C.MED 23:55
PROVIDERS: ADMIT Internal Medicine; ATTEND Family Medicine
DX: A41.9 Sepsis, unspecified organism (principal); G93.41 Metabolic encephalopathy; N39.0 Urinary tract infection, site not specified; N17.9 Acute kidney failure, unspecified; N12 Tubulo-interstitial nephritis, not specified as acute or chronic; J01.40 Acute pansinusitis, unspecified; I12.9 Hypertensive chronic kidney disease with stage 1 through stage 4 chronic kidney disease, or unspecified chronic kidney disease; N18.3 Chronic kidney disease, stage 3 (moderate); F32.9 Major depressive disorder, single episode, unspecified; E03.9 Hypothyroidism, unspecified; Z85.3 Personal history of malignant neoplasm of breast; J45.909 Unspecified asthma, uncomplicated; E83.39 Other disorders of phosphorus metabolism; E78.5 Hyperlipidemia, unspecified; E11.65 Type 2 diabetes mellitus with hyperglycemia

== ENCOUNTER → 2016-12-28 | Day surgery (SDC) | payer OTHER ==
[2016-12-16 14:54] VITALS: Ht 141 cm; Wt 48.2 kg
[~2016-12-28] VITALS: Ht 141 cm; Wt 48.2 kg
[~2016-12-28] MED LIST changes: +500ML BSS 0.3ML EPI 1:1000PF IRRIG ONE; +ACETAMINOPHEN 325 MG TAB PO PRN; +ALBU18002 INH; +AMVISC PLUS 0.8ML SYRINGE INT OCU ONE; +ATROPINE SULFATE 0.1 MG/ML 5ML SYR IV PRN; +BRIMONIDINE TART 0.2% OP SOLN PER DROP CHARGE ONE; +BSS FLUSH ONE; -DULA1INJ; -EFF75 PO; +EFFSR75 PO; +ENDOCOAT 0.85ML SYRINGE INT OCU ONE; +EpHEDrine SULFATE INJ 50 MG/ML AMP IV PRN; +EpINEphrine INJ 1MG/ML AMP 1 MG/ML AMP ONE; +FLUT1INH7 INH; +FLUT27.53 NAE; +FLVHFA110 INH; -HYDR-4313 PO; +LACTATED RINGER'S 1000ML 500 ML IV SCH; -LEVO50TA PO; +LEVO75TA5 PO; +LIDOCAINE 4% OP SOLN DROP CHARGE ONE; +LIDOCAINE 4% OP SOLN DROP CHARGE OPR SCH; +LIDOCAINE HCL 1% MPF 2 ML VIAL ONE; +LIDOCAINE HCL 2% 2 ML VIAL (20MG/ML) ONE; -LISI-461 PO; +LSNP/30 PO; +METO5TAB5 PO; +MIDAZOLAM HCL 1 MG/ML 2ML VIAL ONE; +MOXIFLOXACIN OPH SOLN PER DROP CHARGE ONE; +NVLGI/PEN SQ; +POVIDONE-IODINE OP SOLN 30 ML BTL ONE; +PRED1SUS3 OPL; +PRED1SUS3 OPR; +PROPARACAINE 0.5% OP SOLN PER DROP CHARGE OPR SCH; +PROPOFOL IV EMULSION 10 MG/ML 20 ML VIAL IV ONE; +REPA0.5T PO; +REPA2TAB13 PO; +SNG10 PO; +TOBRAMYCIN/DEXAMETHASONE OPH OINT PER APPLN CHARGE ONE; -TOPI100T20 PO; +TOPI200T14 PO; +VNTHFA/IN INH
[2016-12-28] MEDS: PHENYLEPHRINE HCL 2.5% OP SOLN PER DROP CHARGE OPR SCH ×2 (07:22→07:27)
[2016-12-28] MEDS: TROPICAMIDE 1% OP SOLN PER DROP CHARGE OPR SCH ×2 (07:23→07:28)
[2016-12-28] MEDS: CYCLOPENTOLATE HCL 1% OP SOLN PER DROP CHARGE OPR SCH ×2 (07:24→07:29)
[2016-12-28] MEDS: KETOROLAC 0.5% OP SOLN PER DROP CHARGE OPR SCH ×2 (07:25→07:30)
[2016-12-28] MEDS: MOXIFLOXACIN OPH SOLN PER DROP CHARGE OPR SCH ×2 (07:26→07:36)
--- NOTE | 2016-12-28 07:35 | History & Physical Bridge - [place] ---
H&P Re-Evaluation Bridge Note: I have examined the patient, reviewed the History & Physical and in the interval since the performance of the History & Physical I have noted the following changes of clinical significance: No changes noted
--- NOTE | 2016-12-28 08:35 | Discharge Instructions-SurgCtr ---
Discharge Instructions Visit Reason for Visit: Cataract Right Eye Discharge Discharge Diagnosis / Problem: cataract right eye Discharge Goals Goal(s): Improve function Activity Recommendations Activity Limitations: per Instructions/Follow-up section Lifting Limitations: no more than 5 pounds Anesthesia . Post Anesthesia Instructions: If you have had General Anesthesia or IV Sedation: * Do not drive today. * Resume driving when surgeon permits. * Do not make important decisions or sign legal documents today. * Call surgeon for: 1. Temperature elevations greater than 101 degrees F. 2. Uncontrollable pain. 3. Excessive bleeding. 4. Persistent nausea and vomiting. 5. Medication intolerance (nausea, vomiting or rash). * For nausea and vomiting use only clear liquids such as: tea, soda, bouillon until nausea subsides, then gradually increase diet as tolerated. * If you have any concerns or questions, call your surgeon's office. If physician is unavailable and it is an emergency, call 911 or go to the nearest emergency room. . Instructions / Follow-Up Instructions / Follow-Up ACTIVITY RECOMMENDATIONS: * Light activities * You may walk outside, read, watch television. * Mild irritation and blurred vision are common for the first few days, redness around the white part of the eye is common. MEDICATIONS: Resume previous medications unless instructed otherwise by your surgeon. Eye drops (today and tomorrow): Cipro - one drop in operative eye every 2 hours while awake Prednisolone 1% - one drop in operative eye every 2 hours while awake Bromfenac - one drop in operative eye twice daily SPECIAL CARE INSTRUCTIONS: * If any problems or concerns, please call Dr. Turk's office at . * Keep plastic shield taped over eye to sleep at night. * Keep plastic shield taped over eye except to administer eye drops. * Keep plastic shield on until office visit the following day. FOLLOW UP VISIT: Follow-up with Dr. Turk in the [place] office as scheduled. If not already scheduled, please call the office at . Diet Recommendations Home Diet: resume previous diet Procedures Procedures Performed: Right Cataract Phacoemulsification With Intraocular Lens Implant Pending Studies Studies pending at discharge: no Medical Emergencies . Who to Call and When: Medical Emergencies: If at any time you feel your situation is an emergency, please call 911 immediately. . Non-Emergent Contact Non-Emergency issues call your: Development Assistant . . "Provider Documentation" section prepared by Eusebio Turk.
--- NOTE | 2016-12-28 08:36 | [facility] Post Operative Brief Note ---
Immediate Operative Summary Operative Date Dec 28, 2016. Pre-Operative Diagnosis Cataract Right Eye Post-Operative Diagnosis Same Procedure(s) Performed Right Cataract Phacoemulsification With Intraocular Lens Implant Surgeon Dr. Turk [place] Flaker Surgeon(s) None Estimated Blood Loss None Findings cataract right eye Specimens None Complication(s) None Disposition Recovery Room / PACU
[2016-12-28 08:40] VITALS: TEMP 36.3
--- NOTE | 2016-12-28 09:01 | Anesthesia Progress Nt - [facility] ---
Anesthesia Post Op Note Date & Time Dec 28, 2016 at 09:01 Vital Signs Pain Intensity: 0 Vital Signs Past 12 Hours Date Time Temp Pulse Resp B/P Pulse Ox O2 Delivery O2 Flow Rate FiO2 12/28/16 08:40 36.3 64 16 131/74 98 Room Air 12/28/16 06:59 37.1 71 16 105/72 98 Room Air Notes Mental Status: alert / awake / arousable, participated in evaluation Pt Amnestic to Procedure: Yes Nausea / Vomiting: adequately controlled Pain: adequately controlled Airway Patency, RR, SpO2: stable & adequate BP & HR: stable & adequate Hydration State: stable & adequate Anesthetic Complications: no major complications apparent
[2016-12-28 09:02] VITALS: BP 115/80; PULSE 67; O2SAT 98
--- NOTE | 2016-12-28 15:56 | OPERATIVE REPORT ---
DATE OF OPERATION: 12/28/2016 PREOPERATIVE DIAGNOSIS: Cataract, right eye. POSTOPERATIVE DIAGNOSIS: Cataract, right eye. PROCEDURE: Phacoemulsification cataract extraction with intraocular lens placement, right eye. SURGEON: Dr. Turk. COMPLICATIONS: None. ESTIMATED BLOOD LOSS: None. ANESTHESIA: Topical with sedation. OPERATION AND FINDINGS: DESCRIPTION OF PROCEDURE: After informed consent was obtained in the holding area the patient was wheeled back to the Operating Room where cardiac monitoring leads and oxygen by nasal cannula was administered by Anesthesia. Gentle IV sedation was given, and the patient's right eye was prepped and draped in usual sterile fashion. A wire lid speculum was placed into the right eye and the operating microscope was swung into position. Using 0.12 forceps and a Supersharp blade a paracentesis port was made 3 o'clock hours away from the 9 o'clock position of patient's right eye. 1% non-preserved Lidocaine was then injected into the anterior chamber for anesthesia. A 2.2 mm keratotome blade was then used to make a shelved clear corneal incision at the 9 o'clock position of her right eye. Amvisc was injected into the anterior chamber and a cystotome and Utrata forceps were used to perform a curvilinear capsulorrhexis. BSS on a hydrodissection cannula was used to hydrodissect the lens nucleus away from the capsular bag. The phacoemulsification handpiece was then used in a stop and chop fashion to remove the lens nucleus. The irrigation and aspiration handpiece was then used to remove the residual cortical material. Amvisc was injected into the capsular bag and anterior chamber and a Bausch \T\ Lomb MX60 25.0 Diopter intraocular lens was injected into the capsular bag. Irrigation and aspiration handpiece was used to remove the residual viscoelastic material. The wounds were hydrated and noted to be watertight. The wire lid speculum was removed from the eye. Vigamox, Brimonidine, and TobraDex ointment were placed on the eye and it was shielded. It was shielded. It should be noted that EndoCoat was used extensively throughout the case to protect the cornea endothelium. DISPOSITION: The patient tolerated the procedure well and was wheeled to the post anesthesia care unit in stable condition. I attest to the content of the Intraoperative Record and any orders documented therein. Any exceptions are noted below. I attest to the content of the Intraoperative Record and any orders documented therein. Any exceptio ns are noted below.
== END | disposition home or self-care (01) ==
LOC: X.SURG 06:54
PROVIDERS: ATTEND Ophthalmology
DX: H25.11 Age-related nuclear cataract, right eye (principal); E13.9 Other specified diabetes mellitus without complications; I10 Essential (primary) hypertension; E07.9 Disorder of thyroid, unspecified; Z85.3 Personal history of malignant neoplasm of breast

== ENCOUNTER → 2017-02-01 | Day surgery (SDC) | payer OTHER ==
[2017-01-14 15:27] VITALS: Ht 141 cm; Wt 43.0 kg
[~2017-02-01] VITALS: Ht 141 cm; Wt 43.0 kg
[~2017-02-01] MED LIST changes: -ALBUAER2 INH; +LIDOCAINE 4% OP SOLN DROP CHARGE OPL SCH; -LIDOCAINE 4% OP SOLN DROP CHARGE OPR SCH; +ONDANSETRON INJ 2 MG/ML 2 ML VIAL ONE; -PRED1SUS3 OPL; -PRED1SUS3 OPR; +PROPARACAINE 0.5% OP SOLN PER DROP CHARGE OPL SCH; -PROPARACAINE 0.5% OP SOLN PER DROP CHARGE OPR SCH; +REPA2TAB12 PO; -REPA2TAB13 PO
[2017-02-01] MEDS: PHENYLEPHRINE HCL 2.5% OP SOLN PER DROP CHARGE OPL SCH ×2 (07:11→07:16)
[2017-02-01] MEDS: TROPICAMIDE 1% OP SOLN PER DROP CHARGE OPL SCH ×2 (07:12→07:17)
[2017-02-01] MEDS: CYCLOPENTOLATE HCL 1% OP SOLN PER DROP CHARGE OPL SCH ×2 (07:13→07:18)
[2017-02-01] MEDS: KETOROLAC 0.5% OP SOLN PER DROP CHARGE OPL SCH ×2 (07:14→07:19)
[2017-02-01] MEDS: MOXIFLOXACIN OPH SOLN PER DROP CHARGE OPL SCH ×2 (07:15→07:25)
--- NOTE | 2017-02-01 08:22 | [facility] Post Operative Brief Note ---
Immediate Operative Summary Operative Date Feb 01, 2017. Pre-Operative Diagnosis Cataract Left Eye Post-Operative Diagnosis Same Procedure(s) Performed Left Cataract Phacoemulsification With Intraocular Lens Implant Surgeon Dr. Turk Home Economics Expert Surgeon(s) None Estimated Blood Loss 0 Findings cataract left eye Specimens None Complication(s) None Disposition Recovery Room / PACU
--- NOTE | 2017-02-01 08:22 | Discharge Instructions-[facility] ---
Discharge Instructions Date of Service Feb 01, 2017. Visit Reason for Visit: Cataract Left Eye Discharge Discharge Diagnosis / Problem: cataract left eye Discharge Goals Goal(s): Improve function Activity Recommendations Activity Limitations: per Instructions/Follow-up section Lifting Limitations: no more than 5 pounds Anesthesia . Post Anesthesia Instructions: If you have had General Anesthesia or IV Sedation: * Do not drive today. * Resume driving when surgeon permits. * Do not make important decisions or sign legal documents today. * Call surgeon for: 1. Temperature elevations greater than 101 degrees F. 2. Uncontrollable pain. 3. Excessive bleeding. 4. Persistent nausea and vomiting. 5. Medication intolerance (nausea, vomiting or rash). * For nausea and vomiting use only clear liquids such as: tea, soda, bouillon until nausea subsides, then gradually increase diet as tolerated. * If you have any concerns or questions, call your surgeon's office. If physician is unavailable and it is an emergency, call 911 or go to the nearest emergency room. . Instructions / Follow-Up Instructions / Follow-Up ACTIVITY RECOMMENDATIONS: * Light activities * You may walk outside, read, watch television. * Mild irritation and blurred vision are common for the first few days, redness around the white part of the eye is common. MEDICATIONS: Resume previous medications unless instructed otherwise by your surgeon. Eye drops (today and tomorrow): Cipro - one drop in operative eye every 2 hours while awake Prednisolone 1% - one drop in operative eye every 2 hours while awake Bromfenac - one drop in operative eye once daily SPECIAL CARE INSTRUCTIONS: * If any problems or concerns, please call Dr. Turk's office at . * Keep plastic shield taped over eye to sleep at night. * Keep plastic shield taped over eye except to administer eye drops. * Keep plastic shield on until office visit the following day. FOLLOW UP VISIT: Follow-up with Dr. Turk in the [place] office as scheduled. If not already scheduled, please call the office at . Diet Recommendations Home Diet: resume previous diet Procedures Procedures Performed: Left Cataract Phacoemulsification With Intraocular Lens Implant Pending Studies Studies pending at discharge: no Medical Emergencies . Who to Call and When: Medical Emergencies: If at any time you feel your situation is an emergency, please call 911 immediately. . Non-Emergent Contact Non-Emergency issues call your: [facility]er . . "Provider Documentation" section prepared by Eusebio Turk.
--- NOTE | 2017-02-01 09:03 | Anesthesia Progress Nt - [facility] ---
Anesthesia Post Op Note Date & Time Feb 01, 2017 at 09:02 Vital Signs Pain Intensity: 7 Vital Signs Past 12 Hours Date Time Temp Pulse Resp B/P Pulse Ox O2 Delivery O2 Flow Rate FiO2 02/01/17 08:59 36.4 60 16 122/78 98 Room Air 02/01/17 08:52 64 17 100 02/01/17 08:52 36.5 64 17 02/01/17 08:50 126/71 02/01/17 08:47 64 4 100 02/01/17 08:47 65 4 02/01/17 08:45 106/64 02/01/17 08:42 63 14 100 02/01/17 08:42 63 14 02/01/17 08:40 117/53 02/01/17 08:37 66 100 02/01/17 08:37 66 02/01/17 08:35 110/66 02/01/17 08:34 121/68 02/01/17 08:31 36.4 16 121/68 97 Nasal Cannula 4 02/01/17 07:03 36.3 61 20 108/76 100 Room Air Notes Mental Status: alert / awake / arousable, participated in evaluation Pt Amnestic to Procedure: Yes Nausea / Vomiting: adequately controlled Pain: adequately controlled Airway Patency, RR, SpO2: stable & adequate BP & HR: stable & adequate Hydration State: stable & adequate Anesthetic Complications: no major complications apparent
[2017-02-01 09:19] VITALS: BP 112/66; PULSE 60; O2SAT 100
--- NOTE | 2017-02-01 14:08 | OPERATIVE REPORT ---
DATE OF OPERATION: 02/01/2017 PREOPERATIVE DIAGNOSIS: Cataract, left eye. POSTOPERATIVE DIAGNOSIS: Same. PROCEDURE: Phacoemulsification cataract extraction with intraocular lens placement left eye. SURGEON: Dr. Turk. COMPLICATIONS: None. ESTIMATED BLOOD LOSS: None. ANESTHESIA: General. OPERATION AND FINDINGS: DESCRIPTION OF PROCEDURE: After informed consent was obtained in the holding area the patient was wheeled back to the Operating Room where cardiac monitoring leads and oxygen by nasal cannula was administered by Anesthesia. Gentle IV sedation was given, and the patient's left eye was prepped and draped in usual sterile fashion. A wire lid speculum was placed into the left eye and the operating microscope was swung into position. Using 0.12 forceps and a Supersharp blade a paracentesis port was made 3 o'clock hours away from the 3 o'clock position of patient's left eye. 1% non-preserved Lidocaine was then injected into the anterior chamber for anesthesia. A 2.2 mm keratotome blade was then used to make a shelved clear corneal incision at the 3 o'clock position of her left eye. Amvisc was injected into the anterior chamber and a cystotome and Utrata forceps were used to perform a curvilinear capsulorrhexis. BSS on a hydrodissection cannula was used to hydrodissect the lens nucleus away from the capsular bag. The phacoemulsification handpiece was then used in a stop and chop fashion to remove the lens nucleus. The irrigation and aspiration handpiece was then used to remove the residual cortical material. Amvisc was injected into the capsular bag and anterior chamber and a Bausch \T\ Lomb MX60 27.0 Diopter intraocular lens was injected into the capsular bag. Irrigation and aspiration handpiece was used to remove the residual viscoelastic material. The wounds were hydrated and noted to be watertight. The wire lid speculum was removed from the eye. Vigamox, Brimonidine, and TobraDex ointment were placed on the eye and it was shielded. It should be noted that EndoCoat was used throughout the case to protect the cornea endothelium. The patient was converted to general anesthesia after becoming combative with the light sedation. DISPOSITION: The patient tolerated the procedure well and was wheeled to the post anesthesia care unit in stable condition. I attest to the content of the Intraoperative Record and any orders documented therein. Any exceptions are noted below. I attest to the content of the Intraoperative Record and any orders documented therein. Any exceptio ns are noted below.
== END | disposition home or self-care (01) ==
LOC: X.SURG 06:34
PROVIDERS: ATTEND Ophthalmology
DX: H25.11 Age-related nuclear cataract, right eye (principal); H54.7 Unspecified visual loss; Z98.41 Cataract extraction status, right eye; I10 Essential (primary) hypertension; E11.311 Type 2 diabetes mellitus with unspecified diabetic retinopathy with macular edema; Z88.8 Allergy status to other drugs, medicaments and biological substances; Z98.890 Other specified postprocedural states

== ENCOUNTER → 2017-04-02 | Outpatient (CLI) | payer OTHER ==
[~2017-04-02] MED LIST changes: -500ML BSS 0.3ML EPI 1:1000PF IRRIG ONE; -ACETAMINOPHEN 325 MG TAB PO PRN; -AMVISC PLUS 0.8ML SYRINGE INT OCU ONE; -ATROPINE SULFATE 0.1 MG/ML 5ML SYR IV PRN; -BRIMONIDINE TART 0.2% OP SOLN PER DROP CHARGE ONE; -BSS FLUSH ONE; -ENDOCOAT 0.85ML SYRINGE INT OCU ONE; -EpHEDrine SULFATE INJ 50 MG/ML AMP IV PRN; -EpINEphrine INJ 1MG/ML AMP 1 MG/ML AMP ONE; -LACTATED RINGER'S 1000ML 500 ML IV SCH; -LIDOCAINE 4% OP SOLN DROP CHARGE ONE; -LIDOCAINE 4% OP SOLN DROP CHARGE OPL SCH; -LIDOCAINE HCL 1% MPF 2 ML VIAL ONE; -LIDOCAINE HCL 2% 2 ML VIAL (20MG/ML) ONE; -MIDAZOLAM HCL 1 MG/ML 2ML VIAL ONE; -MOXIFLOXACIN OPH SOLN PER DROP CHARGE ONE; -ONDANSETRON INJ 2 MG/ML 2 ML VIAL ONE; -POVIDONE-IODINE OP SOLN 30 ML BTL ONE; -PROPARACAINE 0.5% OP SOLN PER DROP CHARGE OPL SCH; -PROPOFOL IV EMULSION 10 MG/ML 20 ML VIAL IV ONE; -TOBRAMYCIN/DEXAMETHASONE OPH OINT PER APPLN CHARGE ONE
--- NOTE | 2017-04-02 15:03 | DIAGNOSTIC IMAGING REPORT ---
CHEST 2 VIEWS ROUTINE HISTORY: COUGH COMPARISON: Chest 11/22/2016. FINDINGS: The lungs are clear. Cardiac silhouette is normal in size. No pleural effusions. No pneumothorax. Surgical clips within the right breast. IMPRESSION: No acute process. Electronically signed by: Bertin Butler M.D. 04/02/2017 3:01 PM Dictated Date/Time: 04/02/2017 3:00 PM
== END | disposition home or self-care (01) ==
LOC: C.RADBC 14:09
PROVIDERS: ATTEND Internal Medicine
DX: R05 Cough (principal)

== ENCOUNTER → 2017-04-12 | Outpatient (CLI) | payer OTHER ==
--- NOTE | 2017-04-12 14:44 | DIAGNOSTIC IMAGING REPORT ---
SINUSES MIN 3 VIEWS ROUTINE CLINICAL HISTORY: J01.90 Acute [id number] COMPARISON STUDY: Head CT 11/22/2016. FINDINGS: Complete opacification of the left frontal sinus. Large right and moderate left fluid levels within the maxillary sinuses. Partial opacity of the ethmoid air cells. The right frontal sinus appears clear. The mastoid air cells are clear. The orbital floors and lamina papyracea are intact. The sphenoid sinuses are also partially opacified. IMPRESSION: Pansinusitis as described above including fluid levels within the bilateral maxillary sinuses. Electronically signed by: Bertin Butler M.D. 04/12/2017 2:43 PM Dictated Date/Time: 04/12/2017 2:41 PM
[2017-04-12 14:57] LABS: BASO % 0.2 %; BASO ABS # 0.01 K/uL (0-0.2); COMPLETE YES; EOS % 0.9 %; HEMATOCRIT 32.7 % (37-47); IG% 0.2 %; LYMPH % 37.7 %; LYMPH ABS # 2.07 K/uL (1.2-3.4); MEAN CELL VOLUME 87.9 fL (80-100); MEAN CORPUSCULAR HEMOGLOBIN 28.8 pg (25-34); MEAN CORPUSCULAR HGB CONC 32.7 g/dl (32-36); MEAN PLATELET VOLUME 10.6 fL (7.4-10.4); MONO % 9.8 %; NEUT % 51.2 %; PLATELET COUNT 220 K/uL (130-400); RED BLOOD COUNT 3.72 M/uL (4.2-5.4); WHITE BLOOD COUNT 5.49 K/uL (4.8-10.8)
[2017-04-12 15:32] LABS: ALT/SGPT 18 U/L (12-78); AST/SGOT 14 U/L (15-37); BLOOD UREA NITROGEN 33 mg/dl (7-18); BUN/CREATININE RATIO 17.6 (10-20); CALCIUM 8.4 mg/dl (8.5-10.1); CARBON DIOXIDE 26 mmol/L (21-32); CHLORIDE 109 mmol/L (98-107); GLUCOSE 121 mg/dl (70-99); POTASSIUM 3.6 mmol/L (3.5-5.1); SODIUM 143 mmol/L (136-145)
[2017-04-12 15:36] LABS: ALKALINE PHOSPHATASE 62 U/L (45-117); CHOLESTEROL 165 mg/dl (0-200); CHOLESTEROL/HDL RATIO 3.4; HDL CHOLESTEROL 48 mg/dl; LDL CHOLESTEROL CALCULATED 90 mg/dl; TRIGLYCERIDES 133 mg/dl (0-150); VERY LOW DENSITY LIPOPROT CALC 27 mg/dl
[2017-04-13 06:26] LABS: ESTIMATED AVERAGE GLUCOSE 154 mg/dl; HA1C FLAG Normal (Normal)
== END | disposition home or self-care (01) ==
LOC: C.RAD1850 14:07
PROVIDERS: ATTEND Internal Medicine
DX: J01.90 Acute sinusitis, unspecified (principal); E11.9 Type 2 diabetes mellitus without complications; E78.5 Hyperlipidemia, unspecified; E89.0 Postprocedural hypothyroidism

== ENCOUNTER → 2017-06-01 | Outpatient (CLI) | payer OTHER ==
[~2017-06-01] MED LIST changes: -REPA2TAB12 PO; +REPA2TAB13 PO
--- NOTE | 2017-06-01 12:24 | DIAGNOSTIC IMAGING REPORT ---
Study: Fusion CT sinuses. HISTORY: Chronic sinusitis FINDINGS: Complete opacification left frontal sinus air cells. Considerable mucosal thickening of the left ethmoid air cells. Moderate mucosal thickening posterior right ethmoid air cells. Near complete opacification sphenoid sinuses primarily on the right. Mild mucosal thickening of the maxillary sinuses. Soft tissue occlusion of the ostomy units bilaterally. No evidence for bony destructive process. Orbital margins appear to be intact. Moderate hypertrophic change of the inferior right and to lesser extent left nasal turbinates. Mild nasal septal displacement to the left. IMPRESSION: 1. Near complete opacification of the left frontal, left ethmoid sinus, and right sphenoid sinus. 2. Mild mucosal thickening of all remaining sinuses. 3. Soft tissue occlusion of the ostiomeatal units bilaterally. 4. Moderate hypertrophic change of the inferior right and to lesser extent left nasal turbinate with mild nasal septal displacement to the left. Electronically signed by: Juventino Cunningham M.D. 06/01/2017 12:23 PM Dictated Date/Time: 06/01/2017 12:20 PM
== END | disposition home or self-care (01) ==
LOC: C.CTS 11:49
DX: J32.9 Chronic sinusitis, unspecified (principal)

== ENCOUNTER → 2017-11-11 | Outpatient (CLI) | payer OTHER ==
[~2017-11-11] MED LIST changes: -ALBU18002 INH; -EFFSR75 PO; -FLVHFA110 INH; -METO5TAB5 PO; -REPA0.5T PO; +REPA2TAB12 PO; -REPA2TAB13 PO; -VENL150C56 PO
[2017-11-11 16:14] LABS: BLOOD UREA NITROGEN 35 mg/dl (7-18); CREATININE 1.82 mg/dl (0.60-1.20)
== END | disposition home or self-care (01) ==
LOC: C.LAB1850 14:05
PROVIDERS: ATTEND Psychiatry & Neurology Neurology
DX: G40.209 Localization-related (focal) (partial) symptomatic epilepsy and epileptic syndromes with complex partial seizures, not intractable, without status epilepticus (principal); R41.3 Other amnesia

== ENCOUNTER → 2017-11-12 | Outpatient (CLI) | payer OTHER ==
--- NOTE | 2017-11-12 13:12 | DIAGNOSTIC IMAGING REPORT ---
MRI OF THE BRAIN WITHOUT CONTRAST CLINICAL HISTORY: Headache, memory loss, chronic sinusitis. HISTORY OF SEIZURES COMPARISON STUDY: 11/15/2015 FINDINGS: No contrast was administered due to the patient's diminished estimated GFR of 28. Sagittal T1, axial diffusion, proton density and T2 weighted axial, coronal FLAIR, and axial T1-weighted images were acquired. No intra or extra-axial mass lesions are visualized Axial diffusion-weighted images reveal no evidence of acute or subacute infarction. There is no evidence of ventricular dilatation. Proton density T2-weighted and FLAIR images reveal scattered foci of increased T2 signal within the white matter, likely on a small vessel basis. There are no abnormal flow voids. There are bilateral maxillary sinus air-fluid levels. There is bilateral ethmoid sinus mucosal thickening IMPRESSION: 1. No evidence of acute or subacute infarction 2. No evidence of intracranial mass on this noncontrast study 3. Bilateral maxillary sinus air-fluid levels, and ethmoid sinus mucosal thickening. Electronically signed by: Zane Gates M.D. 11/12/2017 1:10 PM Dictated Date/Time: 11/12/2017 1:08 PM
== END | disposition home or self-care (01) ==
LOC: C.MRIBC 12:04
PROVIDERS: ATTEND Psychiatry & Neurology Neurology
DX: J32.9 Chronic sinusitis, unspecified (principal); R41.3 Other amnesia; R51 Headache

== ENCOUNTER → 2017-11-29 | Outpatient (CLI) | payer OTHER ==
--- NOTE | 2017-11-29 16:44 | DIAGNOSTIC IMAGING REPORT ---
MRI OF THE CERVICAL SPINE WITHOUT IV CONTRAST CLINICAL HISTORY: Neck pain. Left upper extremity radiculopathy. COMPARISON STUDY: Radiographs of the cervical spine dated 12/17/2015. TECHNIQUE: MRI of the cervical spine is performed utilizing various T1 and T2-weighted sequences in the axial and sagittal planes. IV contrast was not administered for this examination. FINDINGS: Cervical spine: Vertebral body height is maintained throughout the cervical spine. There is straightening of the cervical lordosis with reversal centered at C5. Alignment appears preserved. Anterior osteophytes are seen throughout. The atlantodental articulation is maintained. The spinous processes are intact. No destructive bony lesion is identified. Degenerative endplate edema is noted at C6-C7. Intervertebral discs: Degenerative disc desiccation is seen throughout the cervical spine. Mild to moderate loss of height is seen from C4-C5 through C6-C7. Spinal cord: There may be mildly increased signal within the cervical cord at C6-C7. The remainder of the cervical spinal cord is normal in morphology and signal intensity. C2-C3: Unremarkable. C3-C4: Facet arthropathy causes mild left-sided neural foraminal stenosis. C4-C5: A posterior discussed by complex abuts the ventral cord. Uncovertebral and facet arthropathy cause mild bilateral neural foraminal stenosis. C5-C6: A posterior disc osteophyte complex effaces the ventral cord, somewhat eccentric to left. Uncovertebral and facet arthropathy cause moderate bilateral neural foraminal stenosis, left greater than right. C6-C7: A posterior disc osteophyte complex abuts the ventral cord. Uncovertebral and facet arthropathy cause moderate right greater than left neural foraminal stenosis. C7-T1: Facet arthropathy causes minimal bilateral neural foraminal stenosis. The central canal is clear. Soft tissues: The prevertebral and paraspinous soft tissues are within normal limits. Brain parenchyma: Partially imaged brain parenchyma at the skull base is normal in appearance. Mucosal thickening is noted in the sphenoid sinuses. IMPRESSION: 1. Multilevel cervical spondylosis as above, greatest at C6-C7. See discussion for detailed level by level analysis. 2. There may be minimally increased signal within the cord at C6-C7, likely related to spinal stenosis. The remainder of the cervical cord is normal in morphology and signal intensity. 3. No destructive bony process is identified. Dictated: 11/29/2017 3:22 PM Transcribed: 11/29/2017 4:44 PM [facility] Electronically signed by: Caden Calderon M.D. 11/30/2017 2:12 PM Dictated Date/Time: 11/29/2017 3:22 PM
== END | disposition home or self-care (01) ==
PROVIDERS: ATTEND Psychiatry & Neurology Neurology
DX: M54.12 Radiculopathy, cervical region (principal); M47.892 Other spondylosis, cervical region

== ENCOUNTER → 2017-12-23 | Outpatient (CLI) | payer OTHER | END | disposition home or self-care (01) | LOC: C.MAMM 12:52 | PROVIDERS: ATTEND Internal Medicine Endocrinology, Diabetes & Metabolism | DX: M85.88 Other specified disorders of bone density and structure, other site (principal); M81.0 Age-related osteoporosis without current pathological fracture; E89.0 Postprocedural hypothyroidism; E11.22 Type 2 diabetes mellitus with diabetic chronic kidney disease; N18.3 Chronic kidney disease, stage 3 (moderate); Z79.4 Long term (current) use of insulin ==

== ENCOUNTER → 2017-12-23 | Outpatient (CLI) | payer OTHER ==
[2017-12-23 14:45] LABS: HEMATOCRIT 34.6 % (37-47); HEMOGLOBIN 11.9 g/dL (12.0-16.0); MEAN CELL VOLUME 92.3 fL (80-100); MEAN CORPUSCULAR HEMOGLOBIN 31.7 pg (25-34); MEAN CORPUSCULAR HGB CONC 34.4 g/dl (32-36); MEAN PLATELET VOLUME 11.5 fL (7.4-10.4); PLATELET COUNT 182 K/uL (130-400); RED CELL DISTRIBUTION WIDTH CV 13.4 % (11.5-14.5); WHITE BLOOD COUNT 10.75 K/uL (4.8-10.8)
[2017-12-23 15:12] LABS: ALBUMIN 3.6 gm/dl (3.4-5.0); ALT/SGPT 28 U/L (12-78); AST/SGOT 15 U/L (15-37); BLOOD UREA NITROGEN 46 mg/dl (7-18); CALCIUM 8.4 mg/dl (8.5-10.1); CARBON DIOXIDE 20 mmol/L (21-32); CHOLESTEROL 164 mg/dl (0-200); CREATININE 1.91 mg/dl (0.60-1.20); GLUCOSE 104 mg/dl (70-99); POTASSIUM 3.5 mmol/L (3.5-5.1); SODIUM 138 mmol/L (136-145)
[2017-12-23 15:22] LABS: ALKALINE PHOSPHATASE 68 U/L (45-117); LDL CHOLESTEROL CALCULATED 73 mg/dl; TOTAL PROTEIN 6.8 gm/dl (6.4-8.2)
[2017-12-23 16:50] LABS: HEMOGLOBIN A1C 6.2 % (4.5-5.6)
== END | disposition home or self-care (01) ==
LOC: C.LAB1850 13:40
PROVIDERS: ATTEND Internal Medicine
DX: E89.0 Postprocedural hypothyroidism (principal); E11.22 Type 2 diabetes mellitus with diabetic chronic kidney disease; N18.3 Chronic kidney disease, stage 3 (moderate); Z79.4 Long term (current) use of insulin

== ENCOUNTER → 2017-12-30 | Outpatient (CLI) | payer OTHER ==
[2017-12-30 13:33] LABS: BLOOD UREA NITROGEN 50 mg/dl (7-18); CALCIUM 9.2 mg/dl (8.5-10.1); CARBON DIOXIDE 23 mmol/L (21-32); CREATININE 2.01 mg/dl (0.60-1.20); GLUCOSE 146 mg/dl (70-99); POTASSIUM 3.5 mmol/L (3.5-5.1); SODIUM 137 mmol/L (136-145)
[2018-01-04 13:33] LABS: CA15-3 BREAST ANTIGEN 5819 10 U/mL (<32)
== END | disposition home or self-care (01) ==
LOC: C.LAB1850 11:06
PROVIDERS: ATTEND Internal Medicine Endocrinology, Diabetes & Metabolism
DX: M81.0 Age-related osteoporosis without current pathological fracture (principal); I10 Essential (primary) hypertension

== ENCOUNTER 2018-02-24 11:49 | Inpatient (IN) | payer OTHER ==
[~2018-02-24] VITALS: Ht 142.2 cm; Wt 52.3 kg
[~2018-02-24 11:49] MED LIST changes: +LISI30TA3 PO; -LSNP/30 PO
[2018-02-24] MEDS ORDERED: SODIUM CHLORIDE 0.9% 1000ML 2,000 ML IV STA (12:38)
[2018-02-24 12:58] LABS: BASO % 0.8 %; BASO ABS # 0.07 K/uL (0-0.2); EOS % 23.9 %; EOS ABS # 1.97 K/uL (0-0.5); HEMATOCRIT 36.2 % (37-47); HEMOGLOBIN 12.7 g/dL (12.0-16.0); IG# 0.02 K/uL (0.00-0.02); LYMPH % 27.8 %; LYMPH ABS # 2.29 K/uL (1.2-3.4); MEAN CELL VOLUME 87.4 fL (80-100); MEAN CORPUSCULAR HEMOGLOBIN 30.7 pg (25-34); MEAN CORPUSCULAR HGB CONC 35.1 g/dl (32-36); MEAN PLATELET VOLUME 11.3 fL (7.4-10.4); MONO % 9.9 %; MONO ABS # 0.82 K/uL (0.11-0.59); NEUT % 37.4 %; NEUT ABS # 3.08 K/uL (1.4-6.5); PLATELET COUNT 208 K/uL (130-400); RED CELL DISTRIBUTION WIDTH CV 12.4 % (11.5-14.5); WHITE BLOOD COUNT 8.25 K/uL (4.8-10.8)
--- NOTE | 2018-02-24 13:01 | DIAGNOSTIC IMAGING REPORT ---
CHEST ONE VIEW PORTABLE HISTORY: Generalized abdominal pain. COMPARISON: Chest 04/02/2017. FINDINGS: The lungs are clear. Cardiac silhouette is normal in size. No pleural effusions. No pneumothorax. IMPRESSION: No acute process. Electronically signed by: Bertin Butler M.D. 02/24/2018 1:00 PM Dictated Date/Time: 02/24/2018 12:57 PM
[2018-02-24 13:19] LABS: ALBUMIN 3.6 gm/dl (3.4-5.0); CALCIUM 9.4 mg/dl (8.5-10.1); CREATININE 6.15 mg/dl (0.60-1.20); POTASSIUM 3.4 mmol/L (3.5-5.1); TOTAL PROTEIN 7.6 gm/dl (6.4-8.2)
--- NOTE | 2018-02-24 13:52 | EMERGENCY ROOM VISIT NOTE ---
History Report prepared by Cyndi: Charley Shook Under the Supervision of: Dr. Eric Mcclendon D.O. First contact with patient: 12:15 Chief Complaint: DIARRHEA Stated Complaint: COUGH, NOT EATEN IN A COUPLE DAYS Nursing Triage Summary: Patient presents in a wheelchair to room B09 with c/o diarrhea for the last several weeks, states she had a fall on 02/18 or 02/19 and hit her head, and son reports that she is "hallucinating and seeing bugs" since the fall She is concerned she is dehydrated History of Present Illness The patient is a 67 year old female who presents to the Emergency Room with complaints of constant diarrhea beginning a week ago. The patient reports weakness and fatigue. She states she has been having about 5 episodes of diarrhea a day. The patient saw her PCP a last week who told her to take Imodium. Per son, the patient fell down the stairs and hit her head twice. Per son, the patient has been confused. She denies any abdominal pain. Source of History: patient Onset: a week ago Position: other (generalized) Quality: other (diarrhea) Timing: constant Associated Symptoms: + diarrhea, + fatigue, + weakness, No abdominal pain Review of Systems See HPI for pertinent positives & negatives. A total of 10 systems reviewed and were otherwise negative. Past Medical & Surgical Medical Problems: (1) Altered mental status (2) ASTHMA, UNSPECIFIED (3) DIAB SERGO WO COMPL, TYPE II OR UNSPEC TYPE, NOT UNCNTRLD (4) HX OF BREAST MALIGNANCY (5) HYPERLIPIDEMIA NEC/NOS (6) SIRS (systemic inflammatory response syndrome) (7) SYNCOPE AND COLLAPSE Family History Cancer Diabetes mellitus Hypertension Kidney disease Lung disease Seizures Social History Smoking Status: Never Smoker Alcohol Use: none Drug Use: none Marital Status: single Housing Status: lives with family Occupation Status: unemployed Current/Historical Medications Scheduled Albuterol Hfa (Ventolin Hfa), 1-2 PUFFS INH Q6H Amlodipine (Norvasc), 10 MG PO DAILY Aspirin (Aspirin Ec), 81 MG PO QAM Atorvastatin (Lipitor), 40 MG PO HS Calcium Carbonate (Calcium), 600 MG PO DAILY Carvedilol (Coreg), 25 MG PO BID Flavoxate Hcl (Flavoxate Hcl), 100 MG PO DAILY Fluticasone Prop/Salmeterol (Advair Diskus 250/50 60 Dose), 1 PUFF INH BID Insulin Aspart (Novolog Flexpen), 5 UNITS SQ DINNER Levothyroxine Sodium (Levothyroxine Sodium), 1 TAB PO QAM Lisinopril/Hctz (Zestoretic 20MG/25MG), 1 TAB PO DAILY Meloxicam (Meloxicam), 15 MG PO DAILY Methocarbamol (Robaxin), 500 MG PO BID Repaglinide (Prandin), 4 MG PO QDD Topiramate (Topamax), 200 MG PO BID Scheduled PRN Lorazepam (Lorazepam), 0.5-1 MG PO DAILY PRN for Anxiety Allergies Coded Allergies: Fentanyl (Verified Allergy, Severe, MARKED CONFUSION W/ ABSENCE OF SEDATION, 02/24/18) Midazolam (Verified Allergy, Severe, MARKED CONFUSION W/ ABSENCE OF SEDATION, 02/24/18) Lamotrigine (Verified Allergy, Unknown, UNKNOWN, 02/24/18) Phenytoin (Verified Allergy, Unknown, UNKNOWN, 02/24/18) Physical Exam Vital Signs Date Time Temp Pulse Resp B/P (MAP) Pulse Ox O2 Delivery O2 Flow Rate FiO2 02/24/18 13:49 89 21 100 02/24/18 13:31 92/48 02/24/18 13:19 79 18 96 02/24/18 13:01 102/51 02/24/18 12:49 80 15 97 02/24/18 12:31 82/55 02/24/18 12:25 79 02/24/18 12:15 36.4 87 12 89/64 96 Room Air 02/24/18 12:12 89/54 02/24/18 12:07 96 Room Air Physical Exam CONSTITUTIONAL/VITAL SIGNS: Reviewed / noted above. GENERAL: Non-toxic in appearance. INTEGUMENTARY: Warm, dry, and Confluence. HEAD: Normocephalic. EYES: without scleral icterus or trauma. ENT/OROPHARYNX: clear and moist. LYMPHADENOPATHY/NECK: Is supple without lymphadenopathy or meningismus. RESPIRATORY: Lungs clear and equal. CARDIOVASCULAR: Regular rate and rhythm. GI/ABDOMEN: Soft and nontender. No organomegaly or pulsatile mass. No rebound or guarding. Normal bowel sounds. EXTREMITIES: Warm and well perfused. BACK: No CVA tenderness. NEUROLOGICAL: Intact without focal deficits. PSYCHIATRIC: normal affect. MUSCULOSKELETAL: Normally developed with good muscle tone. Medical Decision & Procedures ER Provider Diagnostic Interpretation: Radiology results as stated below per my review and radiologist interpretation: CHEST ONE VIEW PORTABLE FINDINGS: The lungs are clear. Cardiac silhouette is normal in size. No pleural effusions. No pneumothorax. IMPRESSION: No acute process. Electronically signed by: Bertin Butler M.D. CT OF THE HEAD WITHOUT CONTRAST FINDINGS: No acute intracranial hemorrhage, midline shift or mass effect is present. Ventricular system is stable. Basilar cisterns are patent. There are no extra-axial collections. White matter hypodensities are unchanged and suggest small vessel disease. There are no calvarial fractures. Secretions and air-fluid levels are noted within the maxillary, ethmoid and sphenoid sinuses. Sinus disease has been shown on numerous previous exams. IMPRESSION: 1. No acute intracranial findings. 2. No calvarial fracture. 3. Air-fluid levels and secretions within the sinuses which suggests acute sinusitis. Electronically signed by: Raj Green M.D. Laboratory Results 02/24/18 12:10 Red Blood Count 4.14, Mean Corpuscular Volume 87.4, Mean Corpuscular Hemoglobin 30.7, Mean Corpuscular Hemoglobin Concent 35.1, Mean Platelet Volume 11.3, Neutrophils (%) (Auto) 37.4, Lymphocytes (%) (Auto) 27.8, Monocytes (%) (Auto) 9.9, Eosinophils (%) (Auto) 23.9, Basophils (%) (Auto) 0.8, Neutrophils # (Auto ) 3.08, Lymphocytes # (Auto) 2.29, Monocytes # (Auto) 0.82, Eosinophils # (Auto ) 1.97, Basophils # (Auto) 0.07 02/24/18 12:10 Test 02/24/18 12:10 02/24/18 12:58 White Blood Count 8.25 K/uL (4.8-10.8) Red Blood Count 4.14 M/uL (4.2-5.4) Hemoglobin 12.7 g/dL (12.0-16.0) Hematocrit 36.2 % (37-47) Mean Corpuscular Volume 87.4 fL (80-100) Mean Corpuscular Hemoglobin 30.7 pg (25-34) Mean Corpuscular Hemoglobin Concent 35.1 g/dl (32-36) Platelet Count 208 K/uL (130-400) Mean Platelet Volume 11.3 fL (7.4-10.4) Neutrophils (%) (Auto) 37.4 % Lymphocytes (%) (Auto) 27.8 % Monocytes (%) (Auto) 9.9 % Eosinophils (%) (Auto) 23.9 % Basophils (%) (Auto) 0.8 % Neutrophils # (Auto) 3.08 K/uL (1.4-6.5) Lymphocytes # (Auto) 2.29 K/uL (1.2-3.4) Monocytes # (Auto) 0.82 K/uL (0.11-0.59) Eosinophils # (Auto) 1.97 K/uL (0-0.5) Basophils # (Auto) 0.07 K/uL (0-0.2) RDW Standard Deviation 40.0 fL (36.4-46.3) RDW Coefficient of Variation 12.4 % (11.5-14.5) Immature Granulocyte % (Auto) 0.2 % Immature Granulocyte # (Auto) 0.02 K/uL (0.00-0.02) Prothrombin Time 10.3 SECONDS (9.0-12.0) Prothromb Time International Ratio 1.0 (0.9-1.1) Activated Partial Thromboplast Time 24.7 SECONDS (21.0-31.0) Partial Thromboplastin Ratio 1.0 Anion Gap 8.0 mmol/L (3-11) Est Creatinine Clear Calc Drug Dose 5.7 ml/min Estimated GFR () 7.5 Estimated GFR (Non- 6.4 BUN/Creatinine Ratio 15.7 (10-20) Calcium Level 9.4 mg/dl (8.5-10.1) Total Bilirubin 0.4 mg/dl (0.2-1) Direct Bilirubin mg/dl (0-0.2) Aspartate Amino Transf (AST/SGOT) 14 U/L (15-37) Alanine Aminotransferase (ALT/SGPT) 17 U/L (12-78) Alkaline Phosphatase 74 U/L (45-117) Total Protein 7.6 gm/dl (6.4-8.2) Albumin 3.6 gm/dl (3.4-5.0) Lipase 137 U/L (73-393) Chemistry Specimen Hemolysis Lactic Acid Level 0.9 mmol/L (0.4-2.0) Date/Time Source Procedure Growth Status 02/24/18 12:30 Stool C.difficile Toxin B Gene (PCR) - Final No C. difficile toxin B gene detected Complete Laboratory results as stated above per my review. Medications Administered Medications (Trade) Dose Ordered Sig/Garcia Route Start Time Stop Time Status Last Admin Dose Admin Sodium Chloride 2,000 ml @ 999 mls/hr Q2H1M STAT IV 02/24/18 12:38 02/24/18 14:38 02/24/18 12:38 999 MLS/HR ECG Per My Interpretation Indication: weakness Rate (beats per minute): 85 Rhythm: normal sinus Findings: ST depression (Inferior and lateral leads), no ectopy Comparison ECG Date: 11/02/16 Change: changes are new. ED Course 1226: Previous medical records were reviewed. The patient was evaluated in room B9. A complete history and physical examination was performed. 1238: Ordered Sodium Chloride 2000 ml @ 999 mls/hr IV. 1354: Discussed the patient's case Dr. Eli Banerjee-[facility] [place]. The patient will be evaluated for further treatment and disposition. Medical Decision Differential includes acute coronary syndrome, myocardial infarction, CVA, TIA, anemia, infection, pneumonia, UTI, pyelonephritis, poor nutrition, dehydration, electrolyte disturbance,hypoglycemia. This is a 59-year-old female who presents to the ED with a chief complaint of diarrhea for the past week. She also reports generalized weakness. She fell on the steps a few days ago according to the son. The patient has had about 5- 6 episodes of watery diarrhea per day. She tried Imodium without improvement. She denies any vomiting. She has had some a little confusion according to the son. She did hit her head according to the son. Her vital signs reveal some hypotension. Her exam did not reveal any obvious trauma. She is having frequent diarrhea here. The patient's BUN is 95 and creatinine is 6.15. Baseline creatinine is around 2. EKG shows a normal sinus rhythm at a rate of [address] depressions inferiorly. This is new compared to November 22, 2016. CBC was unremarkable. Chest x-ray did not show acute process. C. difficile was negative. CT scan the brain did not show acute process. The patient was told the results. Because of her acute renal failure, dehydration setting of severe diarrhea, she will be seen by the hospitalist for further inpatient evaluation and care. Medication Reconcilliation Current Medication List: was personally reviewed by me Blood Pressure Screening Patient's blood pressure: Low blood pressure Consults Time Called: [phone] Consulting Physician: Dr. Eli Flores Returned Call: [phone] Discussed the patient's case Dr. Eli Flores. The patient will be evaluated for further treatment and disposition. Impression Primary Impression: ARF (acute renal failure) Additional Impressions: Diarrhea Dehydration Scribe Attestation The scribe's documentation has been prepared under my direction and personally reviewed by me in its entirety. I confirm that the note above accurately reflects all work, treatment, procedures, and medical decision making performed by me. Departure Information Dispostion Being Evaluated By Hospitalist Barbara Montiel M.D. (PCP) Patient Instructions My [facility] Problem Qualifiers
[2018-02-24] MEDS ORDERED: REPA2TAB12 PO (13:53)
[2018-02-24] MEDS ORDERED: CALC-393 PO (13:53)
[2018-02-24] MEDS ORDERED: AMLO-114 PO (13:53)
[2018-02-24] MEDS ORDERED: FLAV1TAB3 PO (13:53)
[2018-02-24] MEDS ORDERED: MELO-83 PO (13:53)
[2018-02-24] MEDS ORDERED: LISI-788 PO (13:53)
[2018-02-24] MEDS ORDERED: TOPI200T14 PO (13:53)
[2018-02-24] MEDS ORDERED: ATOR-24 PO (13:53)
[2018-02-24] MEDS ORDERED: ADVIN25/60 INH (13:53)
[2018-02-24] MEDS ORDERED: METH500T37 PO (13:53)
[2018-02-24] MEDS ORDERED: CARV25TA2 PO (13:53)
[2018-02-24] MEDS ORDERED: VNTHFA/IN INH (13:53)
[2018-02-24] MEDS ORDERED: SODIUM CHLORIDE 0.9% 1000ML 1,000 ML IV SCH ×2 (14:10)
[2018-02-24] MEDS ORDERED: MAGNESIUM HYDROXIDE SUSP 30 ML UDC PO PRN (14:15)
[2018-02-24] MEDS ORDERED: DEXTROSE 50% 50 ML SYR IV PRN (14:15)
[2018-02-24] MEDS ORDERED: GLUCOSE 10 TABS/TUBE PO PRN (14:15)
[2018-02-24] MEDS ORDERED: ALUMINUM/MAGNESIUM/SIMETH (MAALOX MAX) 30 ML UDC PO PRN (14:15)
[2018-02-24] MEDS ORDERED: GLUCAGON FOR INJ 1 MG VIAL SQ PRN (14:15)
[2018-02-24] MEDS ORDERED: GLUCOSE 40% GEL 15 GM TUBE PO PRN (14:15)
[2018-02-24] MEDS ORDERED: ACETAMINOPHEN 325 MG TAB PO PRN (14:15)
[2018-02-24] MEDS ORDERED: ONDANSETRON INJ 2 MG/ML 2 ML VIAL IV PRN (14:15)
[2018-02-24] MEDS ORDERED: MoRPHine SULFATE 2 MG/ML CARP IV PRN (14:15)
--- NOTE | 2018-02-24 14:18 | DIAGNOSTIC IMAGING REPORT ---
CT OF THE HEAD WITHOUT CONTRAST CLINICAL HISTORY: Fall. COMPARISON STUDY: Head CT November 22, 2016 and MRI of the brain November 12, 2017. CT DOSE: 537.48 mGy.cm TECHNIQUE: Helical axial images of the head were obtained without IV contrast. Automated exposure control was utilized for the study. A dose lowering technique was utilized adhering to the principles of ALARA. FINDINGS: No acute intracranial hemorrhage, midline shift or mass effect is present. Ventricular system is stable. Basilar cisterns are patent. There are no extra-axial collections. White matter hypodensities are unchanged and suggest small vessel disease. There are no calvarial fractures. Secretions and air-fluid levels are noted within the maxillary, ethmoid and sphenoid sinuses. Sinus disease has been shown on numerous previous exams. IMPRESSION: 1. No acute intracranial findings. 2. No calvarial fracture. 3. Air-fluid levels and secretions within the sinuses which suggests acute sinusitis. Electronically signed by: Raj Green M.D. 02/24/2018 2:17 PM Dictated Date/Time: 02/24/2018 2:15 PM
--- NOTE | 2018-02-24 14:52 | History and Physical ---
History & Physical Date & Time of Service: Feb 24, 2018 at 14:33 Chief Complaint: Cough, Not Eaten In A Couple Days Primary Care Physician: Barbara Holland M.D. History of Present Illness Source: patient 67-year-old female with past medical history of chronic kidney disease stage III , dyslipidemia, hypertension, diabetes mellitus type 2, asthma, hypothyroidism, depression and previous history of breast cancer. 10 days ago she started having severe diarrhea more than 10 she denies any blood bowel movements per day , mostly watery in nature. In the stool, denies any abdominal pain. Patient took Imodium as per her primary care physician recommendations with no help. Do you did to the diarrhea she started to become extremely weak and fatigued. She fell twice as per family but was not injured. On arrival to ED she was found to have acute kidney injury and chronic kidney disease, she will be admitted for further evaluation. DM HTN HLD CKD III Asthma Hypothyroid Depression Hx of breast cancer right breast s/p lumpectomy in 1999 Past Medical/Surgical History Medical Problems: (1) Abnormal EKG (2) Acute renal failure (3) Altered mental status (4) Altered mental status (5) ASTHMA, UNSPECIFIED (6) Dehydration (7) DIAB SERGO WO COMPL, TYPE II OR UNSPEC TYPE, NOT UNCNTRLD (8) Diffuse abdominal pain (9) Fever (10) Flu-like symptoms (11) HX OF BREAST MALIGNANCY (12) HYPERLIPIDEMIA NEC/NOS (13) Hypokalemia (14) Intractable nausea and vomiting (15) Laceration of fourth finger, left (16) Nausea, vomiting and diarrhea (17) Pansinusitis (18) Proctitis (19) Renal insufficiency (20) SIRS (systemic inflammatory response syndrome) (21) SYNCOPE AND COLLAPSE (22) Uncontrolled hypertension (23) UTI (urinary tract infection) (24) Vomiting Family History Cancer Diabetes mellitus Hypertension Kidney disease Lung disease Seizures Social History Smoking Status: Never Smoker Drug Use: none Marital Status: single Occupational Status: unemployed Immunizations History of Influenza Vaccine: No History of Tetanus Vaccine?: Unknown Tetanus Immunization Date: Jan 30, 2006 Pneumococcal Date: Feb 01, 2003 History of Hepatitis B Vaccine: Unknown Allergies Coded Allergies: Fentanyl (Verified Allergy, Severe, MARKED CONFUSION W/ ABSENCE OF SEDATION, 02/24/18) Midazolam (Verified Allergy, Severe, MARKED CONFUSION W/ ABSENCE OF SEDATION, 02/24/18) Lamotrigine (Verified Allergy, Unknown, UNKNOWN, 02/24/18) Phenytoin (Verified Allergy, Unknown, UNKNOWN, 02/24/18) Home Medications Scheduled Albuterol Hfa (Ventolin Hfa), 1-2 PUFFS INH Q6H Amlodipine (Norvasc), 10 MG PO DAILY Aspirin (Aspirin Ec), 81 MG PO QAM Atorvastatin (Lipitor), 40 MG PO HS Calcium Carbonate (Calcium), 600 MG PO DAILY Carvedilol (Coreg), 25 MG PO BID Flavoxate Hcl (Flavoxate Hcl), 100 MG PO DAILY Fluticasone Prop/Salmeterol (Advair Diskus 250/50 60 Dose), 1 PUFF INH BID Insulin Aspart (Novolog Flexpen), 5 UNITS SQ DINNER Levothyroxine Sodium (Levothyroxine Sodium), 1 TAB PO QAM Lisinopril/Hctz (Zestoretic 20MG/25MG), 1 TAB PO DAILY Meloxicam (Meloxicam), 15 MG PO DAILY Methocarbamol (Robaxin), 500 MG PO BID Repaglinide (Prandin), 4 MG PO QDD Topiramate (Topamax), 200 MG PO BID Scheduled PRN Lorazepam (Lorazepam), 0.5-1 MG PO DAILY PRN for Anxiety Review of Systems Review of system Constitutional: No fever / no chills / no sweats, positive for generalized fatigue and weakness Eyes: no blurring of vision / no eye pain / no discharge / no redness ENT: no hearing loss / no epistaxis /no swallowing problems Respiratory: Cough 10 days with clear sputum/ no wheezing / no SOB / no hemoptysis Cardiovascular: no Chest pain / no lower extremity edema / no palpitation Abdomen: no pain /severe diarrhea as mentioned in HPI Musculoskeletal: no joint pain / no muscle pain / no joint swelling Genitourinary: no dysuria / no incontinence / no urinary retention Neurologic: no focal weakness / no numbness/tingling / no ataxia Psychiatric: no depression symptoms / no anxiety / no insomnia Endocrine: no excessive thirst / no excessive urination Hematologic: no abnormal bleeding / no bruising / no LN swelling Skin: No rash / no pallor Physical Exam Vital Signs Date Time Temp Pulse Resp B/P (MAP) Pulse Ox O2 Delivery O2 Flow Rate FiO2 02/24/18 13:49 89 21 100 02/24/18 13:31 92/48 02/24/18 13:19 79 18 96 02/24/18 13:01 102/51 02/24/18 12:49 80 15 97 02/24/18 12:31 82/55 02/24/18 12:25 79 02/24/18 12:15 36.4 87 12 89/64 96 Room Air 02/24/18 12:12 89/54 02/24/18 12:07 96 Room Air Physical examination General patient appears to be extremely tired with mild distress HEENT: Atraumatic , normocephalic /no jaundice /no pallor /anicteric /positive for dry mucous membrane /normal external ear inspection Neck: Supple /no swelling /central trach Heart: S1/S2 normal/regular rate and rhythm/no gallop /no rub /no murmur Lungs: Clear to auscultation bilaterally/normal chest with expansion/no rhonchi/ no rales/no wheezing/no use of accessory muscles of respiration Abdomen: Soft/nontender/no guarding/no rebound/no organomegaly/no pulsatile mass Musculoskeletal: No swelling/no edema/no tenderness/normal range of motion Neuro exam: Awake alert oriented 3/cranial nerves II through XII appear to be intact/sensation intact/moves all extremities/no abnormal movements Psychiatric evaluation: No depressed mood/normal affect Skin: No rash on exposed skin area/no erythema, skin appears to be dry Extremity: Normal pulse/no pitting edema/no clubbing or cyanosis Endocrine/lymphatic: No obvious lymphadenopathy /no lymphedema Diagnostics Laboratory Results Results Past 24 Hours Test 02/24/18 12:10 02/24/18 12:58 02/24/18 14:10 Range/Units White Blood Count 8.25 4.8-10.8 K/uL Red Blood Count 4.14 4.2-5.4 M/uL Hemoglobin 12.7 12.0-16.0 g/dL Hematocrit 36.2 37-47 % Mean Corpuscular Volume 87.4 80-100 fL Mean Corpuscular Hemoglobin 30.7 25-34 pg Mean Corpuscular Hemoglobin Concent 35.1 32-36 g/dl Platelet Count 208 130-400 K/uL Mean Platelet Volume 11.3 7.4-10.4 fL Neutrophils (%) (Auto) 37.4 % Lymphocytes (%) (Auto) 27.8 % Monocytes (%) (Auto) 9.9 % Eosinophils (%) (Auto) 23.9 % Basophils (%) (Auto) 0.8 % Neutrophils # (Auto) 3.08 1.4-6.5 K/uL Lymphocytes # (Auto) 2.29 1.2-3.4 K/uL Monocytes # (Auto) 0.82 0.11-0.59 K/uL Eosinophils # (Auto) 1.97 0-0.5 K/uL Basophils # (Auto) 0.07 0-0.2 K/uL RDW Standard Deviation 40.0 36.4-46.3 fL RDW Coefficient of Variation 12.4 11.5-14.5 % Immature Granulocyte % (Auto) 0.2 % Immature Granulocyte # (Auto) 0.02 0.00-0.02 K/uL Prothrombin Time 10.3 9.0-12.0 SECONDS Prothromb Time International Ratio 1.0 0.9-1.1 Activated Partial Thromboplast Time 24.7 21.0-31.0 SECONDS Partial Thromboplastin Ratio 1.0 Sodium Level 135 136-145 mmol/L Potassium Level 3.4 3.5-5.1 mmol/L Chloride Level 105 98-107 mmol/L Carbon Dioxide Level 22 21-32 mmol/L Anion Gap 8.0 3-11 mmol/L Blood Urea Nitrogen 95 7-18 mg/dl Creatinine 6.15 0.60-1.20 mg/dl Est Creatinine Clear Calc Drug Dose 5.7 ml/min Estimated GFR () 7.5 Estimated GFR (Non- 6.4 BUN/Creatinine Ratio 15.7 10-20 Random Glucose 165 70-99 mg/dl Calcium Level 9.4 8.5-10.1 mg/dl Total Bilirubin 0.4 0.2-1 mg/dl Direct Bilirubin 0-0.2 mg/dl Aspartate Amino Transf (AST/SGOT) 14 15-37 U/L Alanine Aminotransferase (ALT/SGPT) 17 12-78 U/L Alkaline Phosphatase 74 45-117 U/L Total Protein 7.6 6.4-8.2 gm/dl Albumin 3.6 3.4-5.0 gm/dl Lipase 137 73-393 U/L Chemistry Specimen Hemolysis Lactic Acid Level 0.9 0.4-2.0 mmol/L Microbiology Results 02/24/18 Blood Culture, Ordered Pending 02/24/18 Blood Culture, Ordered Pending 02/24/18 C.difficile Toxin B Gene (PCR) - Final, Complete No C. difficile toxin B gene detected Impression Assessment and Plan 67-year-old female with past medical history of chronic kidney disease stage III , dyslipidemia, hypertension, diabetes mellitus type 2, asthma, hypothyroidism, depression and previous history of breast cancer., presented with severe diarrhea cough and acute kidney injury. Assessment Severe diarrhea, possibly infectious in nature Acute kidney injury on chronic kidney disease DM type II on a low-dose insulin plus oral hypoglycemic HTN, currently hypotensive HLD CKD III Asthma Hypothyroid Depression Hx of breast cancer right breast s/p lumpectomy in 1999 Plan Admit patient to telemetry Start generous IV fluid hydration, will start with normal saline at 100 cc/h and titrate accordingly, if no improvement in renal function will consider renal us, consult bag making machine tender Dr. Zarate, DC lisinopril/HCTZ/Molixicam hold all BP meds except coreg , decrease dose form 25mg bid to 3.125 bid w high holding parameter adjust her meds to her new renal function hold diabetic meds, SSI Ordered empiric Cipro/Flagyl Ordered stool culture Ova and parasite for Giardia, Cryptosporidium, Cyclospora and microsporidia Ordered labs and electrolytes for am Ordered Clostridium difficile ordered CT abdomen to investigate her diarrhea (with oral contrast only) Pepcid for GI prophylaxis Since no significant GI bleed, will do pharmacologic DVT prophylaxis together with SCD boot Consult GI as needed Consult infectious diseases as needed Resuscitation Status VTE Prophylaxis Will order VTE Prophylaxis: Yes
[2018-02-24] MEDS: INSULIN ASPART 100 UNITS/ML 3 ML PEN SC SCH ×2 (16:00→21:41)
[2018-02-24 17:04] VITALS: BP 139/81; PULSE 83; TEMP 36.5; O2SAT 97
[2018-02-24] MEDS: METRONIDAZOLE / NSS 500 MG in PREMIXED NSS 100 ML IV SCH (17:26)
[2018-02-24] MEDS: ALBUTEROL HFA 8 GM INHALER INH SCH ×2 (17:27→23:21)
[2018-02-24 17:28] VITALS: BP 139/81; PULSE 83; TEMP 36.5; O2SAT 97; Ht 142.2 cm; Wt 52.3 kg
--- NOTE | 2018-02-24 17:50 | Nephrology Consultation ---
Nephrology Consultation Date & Providers Date of Consultation: Feb 24, 2018. Primary Care Provider: Barbara Holland M.D. Referring Provider: Reason for Consultation FELIPA/CKD History of Present Illness Mrs. Poppy Mars is a 67-year-old female with diabetes mellitus II, hypertension, asthma, depression, history of breast cancer, OA/DJD, cervical radiculopathy and CKD IV. Baseline creatinine has been 1.7-2.0 mg/dL. Poppy follows in the CKD clinic with Dr. Harris. She was evaluated in the clinic most recently in November 2017. At that time, renal function was found to be stable. CKD has been attributed to diabetic nephropathy, microvascular disease and multiple prior episodes of FELIPA. The patient never had a renal biopsy. She has a reported history of microalbuminuria but no significant protein by dipstick. Renal artery duplex in December of 2014 did not demonstrate any significant renal arterial disease. There was perinephric fat stranding surrounding the left kidney on CT scan 1 year ago but kidneys were otherwise normal in appearance at that time. Unfortunately, Poppy has acute renal insufficiency manifested by a serum creatinine greater than 6 mg/dL. By subjective history the patient denies oliguria. Poppy presented to [facility] today with diarrhea x 10 days. She reports 4-5 loose bowel movements per day. She took Immodium without significant relief. She has associated nausea and abdominal discomfort. She denies significant abdominal pain. She denies any sick contacts. She has not had fevers or chills. She denies melena or hematochezia. She has generalized weakness and anorexia. She has been weak and unsteady on her feet for several days. She reports falling twice at home without significant injury or trauma. At the time of my evaluation, she is feeling somewhat better having received IVF. CT scan of the abdomen is pending. Past Medical/Surgical History Medical: -- CKD, baseline creatinine 1.7-2.0 mg/dL -- Hypertension -- DM II, diagnosed in 2005. No retinopathy or neuropathy -- OA/DJD, with regular use of NSAIDS. Cervical radiculopathy -- Asthma -- Hypothyroidism (s/p GRIGGS) -- Depression -- History of breast cancer -- Depression -- History of proctitis -- History of diarrhea in april of 2015 attributed to Remeron Surgical: Lumpectomy, endoscopy, cardiac catheterization Allergies Coded Allergies: Fentanyl (Verified Allergy, Severe, MARKED CONFUSION W/ ABSENCE OF SEDATION, 02/24/18) Midazolam (Verified Allergy, Severe, MARKED CONFUSION W/ ABSENCE OF SEDATION, 02/24/18) Lamotrigine (Verified Allergy, Unknown, UNKNOWN, 02/24/18) Phenytoin (Verified Allergy, Unknown, UNKNOWN, 02/24/18) Inpatient Medications Current Inpatient Medications Medications (Trade) Dose Ordered Sig/Garcia Route Start Time Stop Time Status Last Admin Dose Admin Albuterol (Ventolin Hfa Inhaler) 1 puffs Q6 INH 02/24/18 18:00 03/26/18 17:59 02/24/18 17:27 1 PUFFS Carvedilol (Coreg Tab) 3.125 mg BID PO 02/24/18 21:00 03/26/18 20:59 Flavoxate HCl (Urispas Tab) 50 mg DAILY PO 02/25/18 09:00 03/27/18 08:59 Salmeterol Xinafoate/ Fluticasone (Advair Diskus 250/50 Inh) 1 puff BID INH 02/24/18 21:00 03/26/18 20:59 Levothyroxine Sodium (Synthroid Tab) 75 mcg DAILYBB PO 02/25/18 06:00 03/27/18 06:59 Lorazepam (Ativan Tab) 0.5 mg DAILY PRN PO 02/24/18 14:15 03/26/18 14:14 Topiramate (Topamax Tab) 50 mg BID PO 02/24/18 21:00 03/26/18 20:59 Metronidazole 500 mg/Prmx 100 ml @ 100 mls/hr Q8H IV 02/24/18 17:00 03/06/18 14:59 02/24/18 17:26 100 MLS/HR Ciprofloxacin/ Dextrose 400 mg/ Prmx 200 ml @ 100 mls/hr DAILY@1800 IV 02/24/18 18:00 03/06/18 17:59 Ondansetron HCl (Zofran Odt) 4 mg Q6H SL 02/24/18 18:00 03/26/18 14:14 Heparin Sodium (Porcine) (Heparin Sq 5000 Unit/0.5ml) 5,000 unit Q12 SQ 02/24/18 21:00 03/26/18 20:59 Sodium Chloride 1,000 ml @ 100 mls/hr Q10H IV 02/24/18 14:10 03/26/18 14:09 02/24/18 16:47 100 MLS/HR Acetaminophen (Tylenol Tab) 650 mg Q4H PRN PO 02/24/18 14:15 03/26/18 14:14 Al Hydrox/Mg Hydrox/Simethicone (Maalox Max Susp) 15 ml Q4H PRN PO 02/24/18 14:15 03/26/18 14:14 Magnesium Hydroxide (Milk Of Magnesia Susp) 30 ml Q12H PRN PO 02/24/18 14:15 03/26/18 14:14 Ondansetron HCl (Zofran Inj) 2 mg Q12H PRN IV 02/24/18 14:15 03/26/18 14:14 Morphine Sulfate (MoRPHine SULFATE INJ) 1 mg Q4H PRN IV 02/24/18 14:15 03/10/18 14:14 Insulin Aspart (novoLOG ASPART) SLIDING SCALE If C... ACHS SC 02/24/18 16:00 03/26/18 15:59 Glucose (Glucose 40% Gel) 15-30 GRAMS 15 GRAMS... UD PRN PO 02/24/18 14:15 03/26/18 14:14 Glucose (Glucose Chew Tab) 4-8 Tablets 4 Tabl... UD PRN PO 02/24/18 14:15 03/26/18 14:14 Dextrose (Dextrose 50% 50ML Syringe) 25-50ML OF 50% DW IV FOR... UD PRN IV 02/24/18 14:15 03/26/18 14:14 Glucagon (Glucagon Inj) 1 mg UD PRN SQ 02/24/18 14:15 03/26/18 14:14 Famotidine 20 mg/ Syringe 5 ml @ 2.5 mls/min DAILY IV 02/25/18 09:00 03/27/18 08:59 Family History Cancer Diabetes mellitus Hypertension Kidney disease Lung disease Seizures Social History Smoking Status: Never Smoker Drug Use: none Marital Status: single Occupation: unemployed Review of Systems A complete review of systems was performed. Pertinent positives are noted above. All other systems are negative. Physical Exam Date Time Temp Pulse Resp B/P (MAP) Pulse Ox O2 Delivery O2 Flow Rate FiO2 02/24/18 17:04 36.5 83 16 139/81 (100) 97 Room Air 02/24/18 15:27 78 18 104/81 98 Room Air 02/24/18 13:49 89 21 100 02/24/18 13:31 92/48 02/24/18 13:19 79 18 96 02/24/18 13:01 102/51 02/24/18 12:49 80 15 97 02/24/18 12:31 82/55 02/24/18 12:25 79 02/24/18 12:15 36.4 87 12 89/64 96 Room Air 02/24/18 12:12 89/54 02/24/18 12:07 96 Room Air General Appearance: WD/WN, no apparent distress Head: normocephalic, atraumatic Eyes: normal inspection, sclerae normal ENT: normal ENT inspection, pharynx normal, + pertinent finding (dry oral muocsa) Neck: supple, no JVD Respiratory/Chest: lungs clear, no respiratory distress, no accessory muscle use Cardiovascular: regular rate, rhythm, no gallop, no murmur Abdomen/GI: non tender, soft Back: no CVA tenderness Extremities/Musculoskelatal: normal inspection, no pedal edema Neurologic/Psych: alert, normal mood/affect Laboratory Results Last 24 Hours Test 02/24/18 12:10 02/24/18 12:58 02/24/18 16:49 White Blood Count 8.25 K/uL Red Blood Count 4.14 M/uL Hemoglobin 12.7 g/dL Hematocrit 36.2 % Mean Corpuscular Volume 87.4 fL Mean Corpuscular Hemoglobin 30.7 pg Mean Corpuscular Hemoglobin Concent 35.1 g/dl Platelet Count 208 K/uL Mean Platelet Volume 11.3 fL Neutrophils (%) (Auto) 37.4 % Lymphocytes (%) (Auto) 27.8 % Monocytes (%) (Auto) 9.9 % Eosinophils (%) (Auto) 23.9 % Basophils (%) (Auto) 0.8 % Neutrophils # (Auto) 3.08 K/uL Lymphocytes # (Auto) 2.29 K/uL Monocytes # (Auto) 0.82 K/uL Eosinophils # (Auto) 1.97 K/uL Basophils # (Auto) 0.07 K/uL RDW Standard Deviation 40.0 fL RDW Coefficient of Variation 12.4 % Immature Granulocyte % (Auto) 0.2 % Immature Granulocyte # (Auto) 0.02 K/uL Prothrombin Time 10.3 SECONDS Prothromb Time International Ratio 1.0 Activated Partial Thromboplast Time 24.7 SECONDS Partial Thromboplastin Ratio 1.0 Sodium Level 135 mmol/L Potassium Level 3.4 mmol/L Chloride Level 105 mmol/L Carbon Dioxide Level 22 mmol/L Anion Gap 8.0 mmol/L Blood Urea Nitrogen 95 mg/dl Creatinine 6.15 mg/dl Est Creatinine Clear Calc Drug Dose 5.7 ml/min Estimated GFR () 7.5 Estimated GFR (Non- 6.4 BUN/Creatinine Ratio 15.7 Random Glucose 165 mg/dl Calcium Level 9.4 mg/dl Total Bilirubin 0.4 mg/dl Direct Bilirubin mg/dl Aspartate Amino Transf (AST/SGOT) 14 U/L Alanine Aminotransferase (ALT/SGPT) 17 U/L Alkaline Phosphatase 74 U/L Total Protein 7.6 gm/dl Albumin 3.6 gm/dl Lipase 137 U/L Procalcitonin 0.17 ng/ml Chemistry Specimen Hemolysis Lactic Acid Level 0.9 mmol/L Bedside Glucose 77 mg/dl Impression (1) Acute renal insufficiency (2) CKD (chronic kidney disease), stage IV (3) Hypertension (4) Diarrhea Poppy Mars is a 67-year-old female with acute on chronic kidney disease IV in the setting of diarrhea. She has some component of prerenal azotemia. Clinical presentation suggestive of superimposed ATN. The patient was taking lisinopril, HCTZ and NSAIDS at home. She is non oliguric by subjective report. Abdominal CT scan is pending. UA/microscopy has been requested. There is no current indication for dialysis. Baseline creatinine is 1.7-2.0 mg/dL. Despite the marked rise in creatinine, metabolic profile remains otherwise acceptable (mild hypokalemia and hyponatremia noted). HCO3 is acceptable. 1 L IV 0.9% saline was provided in the ED. I would suggest continuing IVF replacement with an electrolyte neutral solute such as plasmalyte or LR. Continue fluids to encourage a positive fluid balance of approximately 1 L over night. Note that cipro/Flagyl have been started. Lisinopril/HCTZ and NSAIDS have been held. BP is currently appropriate. Medications are being dosed appropriately for kidney function. Metabolic profile will be repeated in the AM, reasonable to check CPK with next blood draw.
[2018-02-24] MEDS: ONDANSETRON 4MG OD TAB SL SCH ×2 (18:00→23:21)
--- NOTE | 2018-02-24 18:01 | DIAGNOSTIC IMAGING REPORT ---
ABD/PELVIS ORAL CONT ONLY CT DOSE: 301.18 mGy.cm HISTORY: Abdominal pain severe diarrhea TECHNIQUE: Multiaxial CT images of the abdomen and pelvis were performed following the use of oral contrast. A dose lowering technique was utilized adhering to the principles of ALARA. COMPARISON STUDY: 11/22/2016 FINDINGS: Lung bases are clear. Unchanging small nodule left lung base. Liver spleen and pancreas are uniform. Kidneys negative for hydronephrosis. Several mildly reactive loops of small bowel. Mild edema of the descending colon and sigmoid consistent with a nonspecific colitis. No evidence for abscess collection or obstruction. Bladder is midline. IMPRESSION: Nonspecific wall thickening/colitis of the descending and sigmoid regions. No evidence for abscess collection or obstruction. Mild reactive small bowel ileus. The above report was generated using voice recognition software. It may contain grammatical, syntax or spelling errors. Electronically signed by: Juventino Cunningham M.D. 02/24/2018 6:00 PM Dictated Date/Time: 02/24/2018 5:55 PM
[2018-02-24] MEDS: CIPROFLOXACIN / D5W 400 MG in PREMIXED IN D5W 200 ML IV SCH (18:24)
[2018-02-24] MEDS: LACTATED RINGER'S 1000ML 1,000 ML IV SCH (18:45)
[2018-02-24 19:24] LABS: PTT PATIENT 26.3 SECONDS (21.0-31.0)
[2018-02-24 20:02] VITALS: BP 108/75; PULSE 77; TEMP 36.6; O2SAT 95
[2018-02-24] MEDS: FLUTICASONE/SALMETEROL 250/50 (ADVAIR) 14 PUFF/1 INHALER INH SCH (20:31)
[2018-02-24 21:38] VITALS: BP 104/67; PULSE 79
[2018-02-24] MEDS: CARVEDILOL 3.125 MG TAB PO SCH (21:40)
[2018-02-24] MEDS: TOPIRAMATE 50 MG TAB PO SCH (21:40)
[2018-02-24] MEDS: HEPARIN SOD 5000 UNIT/0.5 ML CARP SQ SCH (21:42)
[2018-02-24 23:41] VITALS: BP 107/68; PULSE 79; TEMP 36.3; O2SAT 96
[2018-02-25] VITALS (8 sets, daily range): BP systolic 98–133; BP diastolic 61–82; PULSE 78–89; TEMP 36.5–36.7; O2SAT 95–100
[2018-02-25] MEDS: METRONIDAZOLE / NSS 500 MG in PREMIXED NSS 100 ML IV SCH ×3 (01:11→16:41)
[2018-02-25] MEDS: LORAZEPAM 0.5 MG TAB PO PRN ×2 (01:52→21:38)
[2018-02-25] MEDS: LACTATED RINGER'S 1000ML 1,000 ML IV SCH ×2 (03:54→13:30)
[2018-02-25] MEDS: ALBUTEROL HFA 8 GM INHALER INH SCH ×3 (06:00→17:33)
[2018-02-25] MEDS: LEVOTHYROXINE 75 MCG TAB PO SCH (06:00)
[2018-02-25] MEDS: ONDANSETRON 4MG OD TAB SL SCH ×3 (06:00→17:33)
[2018-02-25 06:43] LABS: BASO % 0.6 %; BASO ABS # 0.04 K/uL (0-0.2); EOS % 25.8 %; EOS ABS # 1.81 K/uL (0-0.5); HEMATOCRIT 29.7 % (37-47); HEMOGLOBIN 10.5 g/dL (12.0-16.0); IG# 0.02 K/uL (0.00-0.02); LYMPH % 28.5 %; MEAN CELL VOLUME 86.8 fL (80-100); MEAN CORPUSCULAR HEMOGLOBIN 30.7 pg (25-34); MEAN CORPUSCULAR HGB CONC 35.4 g/dl (32-36); MEAN PLATELET VOLUME 10.2 fL (7.4-10.4); MONO ABS # 0.63 K/uL (0.11-0.59); NEUT % 35.8 %; NEUT ABS # 2.52 K/uL (1.4-6.5); PLATELET COUNT 162 K/uL (130-400); RED CELL DISTRIBUTION WIDTH CV 12.3 % (11.5-14.5); RED CELL DISTRIBUTION WIDTH SD 39.5 fL (36.4-46.3); WHITE BLOOD COUNT 7.02 K/uL (4.8-10.8)
[2018-02-25 07:20] LABS: ALBUMIN 2.7 gm/dl (3.4-5.0); CALCIUM 8.3 mg/dl (8.5-10.1); CREATININE 3.97 mg/dl (0.60-1.20); PHOSPHORUS 3.1 mg/dl (2.5-4.9); POTASSIUM 3.1 mmol/L (3.5-5.1); TOTAL PROTEIN 5.7 gm/dl (6.4-8.2)
[2018-02-25 07:25] LABS: HEMOGLOBIN A1C 6.9 % (4.5-5.6)
[2018-02-25] MEDS ORDERED: POTASSIUM CHLORIDE 10 MEQ TABCR PO ONE (08:15)
[2018-02-25] MEDS ORDERED: MAGNESIUM SULFATE 1GM / D5W 100 ML IV ONE (08:15)
[2018-02-25] MEDS: FLAVOXATE HCL 100 MG PO SCH (08:24)
[2018-02-25] MEDS: CARVEDILOL 3.125 MG TAB PO SCH ×2 (08:25→21:27)
[2018-02-25] MEDS: TOPIRAMATE 50 MG TAB PO SCH ×2 (08:25→21:27)
[2018-02-25] MEDS: INSULIN ASPART 100 UNITS/ML 3 ML PEN SC SCH ×4 (08:26→21:00)
[2018-02-25] MEDS: HEPARIN SOD 5000 UNIT/0.5 ML CARP SQ SCH ×2 (08:28→21:32)
[2018-02-25] MEDS: FLUTICASONE/SALMETEROL 250/50 (ADVAIR) 14 PUFF/1 INHALER INH SCH ×2 (08:31→21:26)
[2018-02-25] MEDS ORDERED: FAMOTIDINE IV INJ 20 MG in DEXTROSE 5% 100ML 100 ML IV SCH (09:00)
--- NOTE | 2018-02-25 09:15 | Clinical Documentation Query ---
QUERY 1 OF [address] BHAT, Noted discrepancy of documentation in clinical record. H/P indicates pt with CKD stage III however nephrology consult indicates pt has CKD stage IV. Review of historical GFR range revealed 24.9-29 over the past year. In your clinical opinion is this patient being managed for: ( x ) Chronic kidney disease, stage 4 ( ) Not Agree ( ) Other explanation of clinical findings (Please Explain. If no explanation given, this would be considered a no response.) ( ) Unable to determine ( ) Need to Discuss (Please call CDS via extension or qliq. If no interaction occurs this is considered a no response.) QUERY 2 OF 2 Nephrology consult states "Clinical presentation suggestive of superimposed ATN". Attending documentation is not inclusive of ATN/possible ATN diagnosis. In your clinical opinion is this patient being managed for: ( x ) Acute kidney failure with possible ATN/possible ATN ( ) Not Agree ( ) Other explanation of clinical findings (Please Explain. If no explanation given, this would be considered a no response.) ( ) Unable to determine ( ) Need to Discuss (Please call CDS via extension or qliq. If no interaction occurs this is considered a no response.) Please clarify and document your clinical opinion in the progress notes and discharge summary. Terms such as "probable", "suspected", "likely", "questionable", "possible", or "still to be ruled out" are acceptable. IF IN AGREEMENT, YOU MUST DOCUMENT ABOVE DIAGNOSTIC STATEMENT IN DAILY PROGRESS NOTES AND DISCHARGE SUMMARY. This document is not part of the patient's record. Thank You, Jackie Aguilar, RN [phone]
[2018-02-25] MEDS: FAMOTIDINE IV INJ 20 MG in SYRINGE 3 ML IV SCH (10:45)
[2018-02-25] MEDS ORDERED: POTASSIUM CHLORIDE 10 MEQ TABCR PO STA (12:12)
--- NOTE | 2018-02-25 16:03 | Gastrointestinal Consultation ---
Gastrointestinal Consultation Date of Consultation: Feb 25, 2018 Attending Physician: Amalia Consulting Physician: Elinor Reason for Consultation: Diarrhea History of Present Illness Patient is a 67 year old female with 10 day hx of diarrhea up to 10 times a day with nocturnal sx as well. No bleeding Past Medical/Surgical History Medical Problems: (1) ARF (acute renal failure) Status: Acute (2) Dehydration Status: Acute (3) Diarrhea Status: Acute (4) Diffuse abdominal pain Status: Acute (5) Fever Status: Acute (6) Pansinusitis Status: Acute (7) UTI (urinary tract infection) Status: Acute Family History Cancer Diabetes mellitus Hypertension Kidney disease Lung disease Seizures Social History Smoking Status: Never Smoker Alcohol Use: none Drug Use: none Marital Status: single Housing Status: lives with family Occupation Status: unemployed Allergies Coded Allergies: Fentanyl (Verified Allergy, Severe, MARKED CONFUSION W/ ABSENCE OF SEDATION, 02/24/18) Midazolam (Verified Allergy, Severe, MARKED CONFUSION W/ ABSENCE OF SEDATION, 02/24/18) Lamotrigine (Verified Allergy, Unknown, UNKNOWN, 02/24/18) Phenytoin (Verified Allergy, Unknown, UNKNOWN, 02/24/18) Current Medications Home Meds and Scripts Medications Dose Route/Sig Max Daily Dose Days Date Category Dose Instructions Prandin (Repaglinide) 2 Mg Tab 4 Mg PO QDD 02/24/18 Reported PT TAKES WITH EVENING MEAL WHEN SHE DOESN'T TAKE NOVOLOG Zestoretic 20MG/25MG (HCTZ/Lisinopril) Tab 1 Tab PO DAILY 02/24/18 Reported Flavoxate Hcl 100 Mg Tab 100 Mg PO DAILY 02/24/18 Reported Coreg (Carvedilol) 25 Mg Tab 25 Mg PO BID 02/24/18 Reported Norvasc (Amlodipine Besylate) 10 Mg Tab 10 Mg PO DAILY 02/24/18 Reported Calcium (Calcium Carbonate) 600 Mg Tab 600 Mg PO DAILY 02/24/18 Reported Lipitor (Atorvastatin Calcium) 40 Mg Tab 40 Mg PO HS 02/24/18 Reported Topamax (Topiramate) 200 Mg Tab 200 Mg PO BID 02/24/18 Reported Robaxin (Methocarbamol) 500 Mg Tab 500 Mg PO BID 02/24/18 Reported Meloxicam 15 Mg Tab 15 Mg PO DAILY 02/24/18 Reported TAKE WITH FOOD Ventolin Hfa (Albuterol) 200 Puffs/70933 Mcg Aers 1-2 Puffs INH Q6H 02/24/18 Reported Advair Diskus 250/50 60 Dose (Fluticasone Prop/Salmeterol) 1 Ea Aerp 1 Puff INH BID 02/24/18 Reported Novolog Flexpen (Insulin Aspart) 100 Units/Ml Inj 5 Units SQ DINNER 06/08/17 Reported Levothyroxine Sodium 75 Mcg Tab 1 Tab PO QAM 12/16/16 Reported Aspirin Ec (Aspirin) 81 Mg Tab 81 Mg PO QAM 08/09/14 Reported Lorazepam 1 Mg Tab 0.5-1 Mg PO DAILY PRN 03/31/13 Reported Review of Systems Abdomen: + diarrhea Physical Exam Date Time Temp Pulse Resp B/P (MAP) Pulse Ox O2 Delivery O2 Flow Rate FiO2 02/25/18 12:00 Room Air 02/25/18 11:29 36.6 78 16 128/78 (95) 95 02/25/18 08:03 36.6 81 18 98/61 (73) 98 02/25/18 08:00 Room Air 02/25/18 04:00 Room Air 02/25/18 03:46 36.5 80 17 101/64 (76) 98 Room Air 02/25/18 00:00 Room Air 02/24/18 23:41 36.3 79 18 107/68 (81) 96 Room Air 02/24/18 21:38 79 104/67 (79) 02/24/18 20:10 Room Air 02/24/18 20:02 36.6 77 16 108/75 (86) 95 Room Air 02/24/18 17:28 36.5 83 16 139/81 97 Room Air 02/24/18 17:04 36.5 83 16 139/81 (100) 97 Room Air General Appearance: WD/WN Respiratory/Chest: no respiratory distress Cardiovascular: regular rate, rhythm Abdomen: non tender, no organomegaly Skin: normal color Laboratory Results Last 24 Hours Test 02/24/18 16:49 02/24/18 18:10 02/24/18 21:29 02/24/18 21:32 Bedside Glucose 77 mg/dl 78 mg/dl 68 mg/dl Stool Occult Blood NEGATIVE Test 02/24/18 21:52 02/24/18 22:15 02/24/18 22:49 4/27/18 04:06 Bedside Glucose 66 mg/dl 56 mg/dl 86 mg/dl Urine Color YELLOW Urine Appearance TURBID Urine pH 5.0 Urine Specific [place] 1.013 Urine Protein NEG Urine Glucose (UA) NEG Urine Ketones NEG Urine Occult Blood TRACE Urine Nitrite NEG Urine Bilirubin NEG Urine Urobilinogen NEG Urine Leukocyte Esterase MODERATE Urine WBC (Auto) 10-30 /hpf Urine RBC (Auto) 0-4 /hpf Urine Hyaline Casts (Auto) 5-10 /lpf Urine Epithelial Cells (Auto) >30 /lpf Urine Bacteria (Auto) NEG Urine Renal Epithelial Cells 0-5 /lpf Urine Yeast (Auto) Test 02/25/18 06:16 02/25/18 06:33 02/25/18 11:13 02/25/18 15:54 Bedside Glucose 140 mg/dl 134 mg/dl White Blood Count 7.02 K/uL Red Blood Count 3.42 M/uL Hemoglobin 10.5 g/dL Hematocrit 29.7 % Mean Corpuscular Volume 86.8 fL Mean Corpuscular Hemoglobin 30.7 pg Mean Corpuscular Hemoglobin Concent 35.4 g/dl Platelet Count 162 K/uL Mean Platelet Volume 10.2 fL Neutrophils (%) (Auto) 35.8 % Lymphocytes (%) (Auto) 28.5 % Monocytes (%) (Auto) 9.0 % Eosinophils (%) (Auto) 25.8 % Basophils (%) (Auto) 0.6 % Neutrophils # (Auto) 2.52 K/uL Lymphocytes # (Auto) 2.00 K/uL Monocytes # (Auto) 0.63 K/uL Eosinophils # (Auto) 1.81 K/uL Basophils # (Auto) 0.04 K/uL RDW Standard Deviation 39.5 fL RDW Coefficient of Variation 12.3 % Immature Granulocyte % (Auto) 0.3 % Immature Granulocyte # (Auto) 0.02 K/uL Sodium Level 138 mmol/L Potassium Level 3.1 mmol/L Chloride Level 109 mmol/L Carbon Dioxide Level 22 mmol/L Anion Gap 7.0 mmol/L Blood Urea Nitrogen 69 mg/dl Creatinine 3.97 mg/dl Est Creatinine Clear Calc Drug Dose 9.1 ml/min Estimated GFR () 12.7 Estimated GFR (Non- 10.9 BUN/Creatinine Ratio 17.4 Random Glucose 150 mg/dl Estimated Average Glucose 151 mg/dl Hemoglobin A1c 6.9 % Lactic Acid Level 1.1 mmol/L Calcium Level 8.3 mg/dl Phosphorus Level 3.1 mg/dl Magnesium Level 1.7 mg/dl Total Bilirubin 0.3 mg/dl Aspartate Amino Transf (AST/SGOT) 10 U/L Alanine Aminotransferase (ALT/SGPT) 13 U/L Alkaline Phosphatase 55 U/L Total Creatine Kinase 76 U/L Total Protein 5.7 gm/dl Albumin 2.7 gm/dl Globulin 3.0 gm/dl Albumin/Globulin Ratio 0.9 Impression Patient is a 67 year old female with probable viral infection given negative stool cultures, negative fecal WBC and hemoccult. Plan Will check stool for Norovirus and urine culture. Continue supportive measures
--- NOTE | 2018-02-25 16:26 | Progress Note ---
Subjective Date of Service: Feb 25, 2018. Subjective Pt evaluation today including: conversation w/ patient, physical exam, chart review, lab review, review of studies, conversation w/ education consultant, review of inpatient medication list Complaint of rectal tube is so uncomfortable, otherwise feeling okay denies fever and chills, tolerate diet, no nausea vomiting, no abdominal pain Problem List Medical Problems: (1) ARF (acute renal failure) Status: Acute (2) Dehydration Status: Acute (3) Diarrhea Status: Acute (4) Diffuse abdominal pain Status: Acute (5) Fever Status: Acute (6) Pansinusitis Status: Acute (7) UTI (urinary tract infection) Status: Acute Review of Systems Constitutional: No fever, No chills, No sweats, No weight loss, No weakness, No fatigue, No problem reported Eyes: No worsening of vision, No eye pain, No redness, No discharge, No diplopia ENT: No hearing loss, No unusual epistaxis, No nasal symptoms, No sore throat, No tinnitus, No dental problems, No trouble swallowing Respiratory: No cough, No sputum, No wheezing, No shortness of breath, No dyspnea on exertion, No dyspnea at rest, No hemoptysis Cardiac: No chest pain, No orthopnea, No PND, No edema, No claudication, No palpitations Abdomen: + diarrhea (Which is chronic), No pain, No nausea, No vomiting, No constipation Musculoskeletal: No joint pain, No muscle pain, No swelling, No calf pain Female : No dysuria, No urinary frequency, No hematuria, No incontinence, No abnormal vaginal bleeding, No vaginal discharge Neurologic: No memory loss, No paralysis, No weakness, No numbness/tingling, No vertigo, No balance problems Psychiatric: No depression symptoms, No anhedonism, No anxiety, No insomnia, No substance abuse Heme: No abnormal bleeding/bruising, No clotting problems, No swollen lymph nodes, No night sweats Endo: No fatigue, No excessive thirst, No excessive urination Skin: No rash, No itch, No new/changing skin lesions, No color change, No bleeding Objective Vital Signs Date Time Temp Pulse Resp B/P (MAP) Pulse Ox O2 Delivery O2 Flow Rate FiO2 02/25/18 16:07 36.7 88 18 133/82 (99) 100 Room Air 02/25/18 12:00 Room Air 02/25/18 11:29 36.6 78 16 128/78 (95) 95 02/25/18 08:03 36.6 81 18 98/61 (73) 98 02/25/18 08:00 Room Air 02/25/18 04:00 Room Air 02/25/18 03:46 36.5 80 17 101/64 (76) 98 Room Air 02/25/18 00:00 Room Air 02/24/18 23:41 36.3 79 18 107/68 (81) 96 Room Air 02/24/18 21:38 79 104/67 (79) 02/24/18 20:10 Room Air 02/24/18 20:02 36.6 77 16 108/75 (86) 95 Room Air 02/24/18 17:28 36.5 83 16 139/81 97 Room Air 02/24/18 17:04 36.5 83 16 139/81 (100) 97 Room Air Physical Exam General Appearance: WD/WN, no apparent distress, + thin Eyes: normal inspection, PERRL, EOMI, sclerae normal ENT: normal ENT inspection, hearing grossly normal, pharynx normal Neck: supple, no adenopathy, thyroid normal, no JVD, no carotid bruits, trachea midline Respiratory/Chest: chest non-tender, lungs clear, normal breath sounds, no respiratory distress, no accessory muscle use Cardiovascular: regular rate, rhythm, no edema, no gallop, no JVD, no murmur Abdomen: normal bowel sounds, non tender, soft, no organomegaly, no pulsatile mass, + pertinent finding (Rectal tube in place with dark liquid stool) Extremities: normal range of motion, non-tender, normal inspection, no pedal edema, no calf tenderness, normal capillary refill, pelvis stable 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, no motor/sensory deficits, alert, normal mood/affect, oriented x 3 Skin: normal color, warm/dry, no rash Lymphatic: no adenopathy Laboratory Results Last 24 Hours Test 02/24/18 16:49 02/24/18 18:10 02/24/18 21:29 02/24/18 21:32 Bedside Glucose 77 mg/dl 78 mg/dl 68 mg/dl Stool Occult Blood NEGATIVE Test 02/24/18 21:52 02/24/18 22:15 02/24/18 22:49 02/25/18 04:06 Bedside Glucose 66 mg/dl 56 mg/dl 86 mg/dl Urine Color YELLOW Urine Appearance TURBID Urine pH 5.0 Urine Specific [place] 1.013 Urine Protein NEG Urine Glucose (UA) NEG Urine Ketones NEG Urine Occult Blood TRACE Urine Nitrite NEG Urine Bilirubin NEG Urine Urobilinogen NEG Urine Leukocyte Esterase MODERATE Urine WBC (Auto) 10-30 /hpf Urine RBC (Auto) 0-4 /hpf Urine Hyaline Casts (Auto) 5-10 /lpf Urine Epithelial Cells (Auto) >30 /lpf Urine Bacteria (Auto) NEG Urine Renal Epithelial Cells 0-5 /lpf Urine Yeast (Auto) Test 02/25/18 06:16 02/25/18 06:33 02/25/18 11:13 02/25/18 15:54 Bedside Glucose 140 mg/dl 134 mg/dl White Blood Count 7.02 K/uL Red Blood Count 3.42 M/uL Hemoglobin 10.5 g/dL Hematocrit 29.7 % Mean Corpuscular Volume 86.8 fL Mean Corpuscular Hemoglobin 30.7 pg Mean Corpuscular Hemoglobin Concent 35.4 g/dl Platelet Count 162 K/uL Mean Platelet Volume 10.2 fL Neutrophils (%) (Auto) 35.8 % Lymphocytes (%) (Auto) 28.5 % Monocytes (%) (Auto) 9.0 % Eosinophils (%) (Auto) 25.8 % Basophils (%) (Auto) 0.6 % Neutrophils # (Auto) 2.52 K/uL Lymphocytes # (Auto) 2.00 K/uL Monocytes # (Auto) 0.63 K/uL Eosinophils # (Auto) 1.81 K/uL Basophils # (Auto) 0.04 K/uL RDW Standard Deviation 39.5 fL RDW Coefficient of Variation 12.3 % Immature Granulocyte % (Auto) 0.3 % Immature Granulocyte # (Auto) 0.02 K/uL Sodium Level 138 mmol/L Potassium Level 3.1 mmol/L Chloride Level 109 mmol/L Carbon Dioxide Level 22 mmol/L Anion Gap 7.0 mmol/L Blood Urea Nitrogen 69 mg/dl Creatinine 3.97 mg/dl Est Creatinine Clear Calc Drug Dose 9.1 ml/min Estimated GFR () 12.7 Estimated GFR (Non- 10.9 BUN/Creatinine Ratio 17.4 Random Glucose 150 mg/dl Estimated Average Glucose 151 mg/dl Hemoglobin A1c 6.9 % Lactic Acid Level 1.1 mmol/L Calcium Level 8.3 mg/dl Phosphorus Level 3.1 mg/dl Magnesium Level 1.7 mg/dl Total Bilirubin 0.3 mg/dl Aspartate Amino Transf (AST/SGOT) 10 U/L Alanine Aminotransferase (ALT/SGPT) 13 U/L Alkaline Phosphatase 55 U/L Total Creatine Kinase 76 U/L Total Protein 5.7 gm/dl Albumin 2.7 gm/dl Globulin 3.0 gm/dl Albumin/Globulin Ratio 0.9 Assessment and Plan 67-year-old female admitted because of acute kidney failure secondary to severe diarrhea cough Past medical history of chronic kidney disease stage III, dyslipidemia, hypertension, diabetes mellitus type 2, asthma, hypothyroidism, depression and previous history of breast cancer Severe chronic diarrhea, etiology unknown, possibly infectious in nature, C. difficile is negative, patient report has follow-up with Dr. Aldrich, Dr. Carpenter saw the patient, checking stool for Norovirus and urine culture. Continue supportive measures Acute kidney failure on chronic kidney disease, significantly improved, likely because of volume depletion, continue IV fluid, nephrology input appreciated, patient was taking lisinopril, HCTZ and NSAIDS at home, no current indication for dialysis for now follow-up renal function and electrolytes DM type II on a low-dose insulin plus oral hypoglycemic HTN, currently hypotensive HLD CKD III Asthma Hypothyroid Depression Hx of breast cancer right breast s/p lumpectomy in 1999 The above conditions stable continue current medication GI DVT prophylaxis is covered Continued [facility] stay due to: multiple IV medications needed Discharge planning: uncertain
[2018-02-25 16:42] LABS: ALBUMIN 2.9 gm/dl (3.4-5.0); CALCIUM 8.6 mg/dl (8.5-10.1); CREATININE 3.23 mg/dl (0.60-1.20); POTASSIUM 3.5 mmol/L (3.5-5.1)
[2018-02-25 16:48] LABS: PHOSPHORUS 2.3 mg/dl (2.5-4.9)
--- NOTE | 2018-02-25 17:16 | Nephrology Progress Note ---
Nephrology Progress Note Date of Service Feb 25, 2018. Chief Complaint FELIPA/CKD Subjective No acute events overnight. Poppy is feeling slightly better today. Diarrhea persists. GI consult reviewed. No fevers or chills. C diff negative. Stool culture negative. Abdominal discomfort without significant pain. Appetite remains poor. Patient is tolerating IVF well. Review of Systems A complete review of systems was performed. Pertinent positives are noted above. All other systems are negative. Vital Signs Last 8 Hrs Date Time Temp Pulse Resp B/P (MAP) Pulse Ox O2 Delivery O2 Flow Rate FiO2 02/25/18 16:07 36.7 88 18 133/82 (99) 100 Room Air 02/25/18 12:00 Room Air 02/25/18 11:29 36.6 78 16 128/78 (95) 95 I & O 24-Hour Column 02/26/18 08:00 Intake Total 1118 ml Output Total 500 ml Balance 618 ml Last Recorded Weight Weight (Kilograms): 51.300 Physical Exam General Appearance: no apparent distress, + thin Head: normocephalic, atraumatic Eyes: normal inspection, sclerae normal ENT: normal ENT inspection, pharynx normal Neck: supple, no JVD Respiratory/Chest: lungs clear, no respiratory distress, no accessory muscle use Cardiovascular: regular rate, rhythm, no murmur Abdomen/GI: non tender, soft Extremities/Musculoskelatal: normal inspection, no pedal edema Neurologic/Psych: alert, normal mood/affect Family History Cancer Diabetes mellitus Hypertension Kidney disease Lung disease Seizures Social History Smoking Status: Never smoker Drug Use: none Marital Status: single Occupation: unemployed Laboratory Results Past 24 Hours 02/25/18 06:33 Red Blood Count 3.42, Mean Corpuscular Volume 86.8, Mean Corpuscular Hemoglobin 30.7, Mean Corpuscular Hemoglobin Concent 35.4, Mean Platelet Volume 10.2, Neutrophils (%) (Auto) 35.8, Lymphocytes (%) (Auto) 28.5, Monocytes (%) (Auto) 9.0, Eosinophils (%) (Auto) 25.8, Basophils (%) (Auto) 0.6, Neutrophils # (Auto ) 2.52, Lymphocytes # (Auto) 2.00, Monocytes # (Auto) 0.63, Eosinophils # (Auto ) 1.81, Basophils # (Auto) 0.04 02/25/18 06:33 02/25/18 15:54 Test 02/24/18 18:10 02/24/18 21:29 02/24/18 21:32 02/24/18 21:52 Stool Occult Blood NEGATIVE (NEGATIVE) Bedside Glucose 78 mg/dl (70-90) 68 mg/dl (70-90) 66 mg/dl (70-90) Test 02/24/18 22:15 02/24/18 22:49 02/25/18 04:06 02/25/18 06:16 Bedside Glucose 56 mg/dl (70-90) 86 mg/dl (70-90) 140 mg/dl (70-90) Urine Color YELLOW Urine Appearance TURBID (CLEAR) Urine pH 5.0 (4.5-7.5) Urine Specific [place] 1.013 (1.000-1.030) Urine Protein NEG (NEG) Urine Glucose (UA) NEG (NEG) Urine Ketones NEG (NEG) Urine Occult Blood TRACE (NEG) Urine Nitrite NEG (NEG) Urine Bilirubin NEG (NEG) Urine Urobilinogen NEG (NEG) Urine Leukocyte Esterase MODERATE (NEG) Urine WBC (Auto) 10-30 /hpf (0-5) Urine RBC (Auto) 0-4 /hpf (0-4) Urine Hyaline Casts (Auto) 5-10 /lpf (0-5) Urine Epithelial Cells (Auto) >30 /lpf (0-5) Urine Bacteria (Auto) NEG (NEG) Urine Renal Epithelial Cells 0-5 /lpf (0-5) Urine Yeast (Auto) (NONE PRSENT) Test 02/25/18 06:33 02/25/18 11:13 02/25/18 15:54 02/25/18 16:26 White Blood Count 7.02 K/uL (4.8-10.8) Red Blood Count 3.42 M/uL (4.2-5.4) Hemoglobin 10.5 g/dL (12.0-16.0) Hematocrit 29.7 % (37-47) Mean Corpuscular Volume 86.8 fL (80-100) Mean Corpuscular Hemoglobin 30.7 pg (25-34) Mean Corpuscular Hemoglobin Concent 35.4 g/dl (32-36) Platelet Count 162 K/uL (130-400) Mean Platelet Volume 10.2 fL (7.4-10.4) Neutrophils (%) (Auto) 35.8 % Lymphocytes (%) (Auto) 28.5 % Monocytes (%) (Auto) 9.0 % Eosinophils (%) (Auto) 25.8 % Basophils (%) (Auto) 0.6 % Neutrophils # (Auto) 2.52 K/uL (1.4-6.5) Lymphocytes # (Auto) 2.00 K/uL (1.2-3.4) Monocytes # (Auto) 0.63 K/uL (0.11-0.59) Eosinophils # (Auto) 1.81 K/uL (0-0.5) Basophils # (Auto) 0.04 K/uL (0-0.2) RDW Standard Deviation 39.5 fL (36.4-46.3) RDW Coefficient of Variation 12.3 % (11.5-14.5) Immature Granulocyte % (Auto) 0.3 % Immature Granulocyte # (Auto) 0.02 K/uL (0.00-0.02) Anion Gap 7.0 mmol/L (3-11) 5.0 mmol/L (3-11) Est Creatinine Clear Calc Drug Dose 9.1 ml/min 11.1 ml/min Estimated GFR () 12.7 16.2 Estimated GFR (Non- 10.9 14.0 BUN/Creatinine Ratio 17.4 (10-20) 17.2 (10-20) Estimated Average Glucose 151 mg/dl Hemoglobin A1c 6.9 % (4.5-5.6) Lactic Acid Level 1.1 mmol/L (0.4-2.0) Calcium Level 8.3 mg/dl (8.5-10.1) 8.6 mg/dl (8.5-10.1) Phosphorus Level 3.1 mg/dl (2.5-4.9) 2.3 mg/dl (2.5-4.9) Magnesium Level 1.7 mg/dl (1.8-2.4) Total Bilirubin 0.3 mg/dl (0.2-1) Aspartate Amino Transf (AST/SGOT) 10 U/L (15-37) Alanine Aminotransferase (ALT/SGPT) 13 U/L (12-78) Alkaline Phosphatase 55 U/L (45-117) Total Creatine Kinase 76 U/L (26-192) Total Protein 5.7 gm/dl (6.4-8.2) Albumin 2.7 gm/dl (3.4-5.0) 2.9 gm/dl (3.4-5.0) Globulin 3.0 gm/dl (2.5-4.0) Albumin/Globulin Ratio 0.9 (0.9-2) Bedside Glucose 134 mg/dl (70-90) 117 mg/dl (70-90) Allergies Coded Allergies: Fentanyl (Verified Allergy, Severe, MARKED CONFUSION W/ ABSENCE OF SEDATION, 02/24/18) Midazolam (Verified Allergy, Severe, MARKED CONFUSION W/ ABSENCE OF SEDATION, 02/24/18) Lamotrigine (Verified Allergy, Unknown, UNKNOWN, 02/24/18) Phenytoin (Verified Allergy, Unknown, UNKNOWN, 02/24/18) Medications Current Inpatient Medications Medications (Trade) Dose Ordered Sig/Garcia Route Start Time Stop Time Status Last Admin Dose Admin Albuterol (Ventolin Hfa Inhaler) 1 puffs Q6 INH 02/24/18 18:00 03/26/18 17:59 02/25/18 13:31 1 PUFFS Carvedilol (Coreg Tab) 3.125 mg BID PO 02/24/18 21:00 03/26/18 20:59 02/25/18 08:25 3.125 MG Flavoxate HCl (Urispas Tab) 50 mg DAILY PO 02/25/18 09:00 03/27/18 08:59 02/25/18 08:24 50 MG Salmeterol Xinafoate/ Fluticasone (Advair Diskus 250/50 Inh) 1 puff BID INH 02/24/18 21:00 03/26/18 20:59 02/25/18 08:31 1 PUFF Levothyroxine Sodium (Synthroid Tab) 75 mcg DAILYBB PO 02/25/18 06:00 03/27/18 06:59 Lorazepam (Ativan Tab) 0.5 mg DAILY PRN PO 02/24/18 14:15 03/26/18 14:14 02/25/18 01:52 0.5 MG Topiramate (Topamax Tab) 50 mg BID PO 02/24/18 21:00 03/26/18 20:59 02/25/18 08:25 50 MG Metronidazole 500 mg/Prmx 100 ml @ 100 mls/hr Q8H IV 02/24/18 17:00 03/06/18 14:59 02/25/18 16:41 100 MLS/HR Ciprofloxacin/ Dextrose 400 mg/ Prmx 200 ml @ 100 mls/hr DAILY@1800 IV 02/24/18 18:00 03/06/18 17:59 02/24/18 18:24 100 MLS/HR Ondansetron HCl (Zofran Odt) 4 mg Q6H SL 02/24/18 18:00 03/26/18 14:14 02/25/18 13:31 4 MG Heparin Sodium (Porcine) (Heparin Sq 5000 Unit/0.5ml) 5,000 unit Q12 SQ 02/24/18 21:00 03/26/18 20:59 02/25/18 08:28 5,000 UNIT Acetaminophen (Tylenol Tab) 650 mg Q4H PRN PO 02/24/18 14:15 03/26/18 14:14 Al Hydrox/Mg Hydrox/Simethicone (Maalox Max Susp) 15 ml Q4H PRN PO 02/24/18 14:15 03/26/18 14:14 Magnesium Hydroxide (Milk Of Magnesia Susp) 30 ml Q12H PRN PO 02/24/18 14:15 03/26/18 14:14 Ondansetron HCl (Zofran Inj) 2 mg Q12H PRN IV 02/24/18 14:15 03/26/18 14:14 Morphine Sulfate (MoRPHine SULFATE INJ) 1 mg Q4H PRN IV 02/24/18 14:15 03/10/18 14:14 02/24/18 23:25 2 MG Insulin Aspart (novoLOG ASPART) SLIDING SCALE If C... ACHS SC 02/24/18 16:00 03/26/18 15:59 Glucose (Glucose 40% Gel) 15-30 GRAMS 15 GRAMS... UD PRN PO 02/24/18 14:15 03/26/18 14:14 Glucose (Glucose Chew Tab) 4-8 Tablets 4 Tabl... UD PRN PO 02/24/18 14:15 03/26/18 14:14 02/24/18 22:26 4 TABS Dextrose (Dextrose 50% 50ML Syringe) 25-50ML OF 50% DW IV FOR... UD PRN IV 02/24/18 14:15 03/26/18 14:14 Glucagon (Glucagon Inj) 1 mg UD PRN SQ 02/24/18 14:15 03/26/18 14:14 Famotidine 20 mg/ Syringe 5 ml @ 2.5 mls/min DAILY IV 02/25/18 09:00 03/27/18 08:59 02/25/18 10:45 2.5 MLS/MIN Lactated Ringer's 1,000 ml @ 120 mls/hr Q8H20M IV 02/24/18 19:00 03/26/18 18:59 02/25/18 13:30 120 MLS/HR Impression (1) Acute renal insufficiency (2) CKD (chronic kidney disease), stage IV (3) Hypertension (4) Diarrhea Poppy Mars is a 67-year-old female with acute on chronic kidney disease. She developed prerenal azotemia associated with dehydration due to diarrhea. Clinical suggestive of superimposed ATN. Creatinine is improving with intravascular volume expansion. The patient was taking lisinopril, HCTZ and NSAIDS at home. She is non oliguric by subjective report. Abdominal CT scan was reviewed this afternoon. Colitis noted. Kidneys without obstruction. UA/ microscopy was bland and acellular. Hypokalemia is being treated with oral replacement. A repeat metabolic profile was sent this afternoon. HCO3 replacement deferred for now. Patient is tolerating IVF with LR @ 120 ml/hr. Baseline creatinine is 1.7-2.0 mg/dL. Recommendations -- Continue LR @ 100 ml/hr -- Document I/O -- Replete potassium as needed -- Monitor and replace magnesium as needed with IV mag -- Repeat metabolic profile pending -- Recheck renal profile tomorrow AM -- BP acceptable
[2018-02-25] MEDS: CIPROFLOXACIN / D5W 400 MG in PREMIXED IN D5W 200 ML IV SCH (17:33)
[2018-02-26] VITALS (9 sets, daily range): BP systolic 122–155; BP diastolic 71–82; PULSE 73–85; TEMP 36.5–36.9; O2SAT 93–99
[2018-02-26] MEDS: ONDANSETRON 4MG OD TAB SL SCH ×5 (00:02→23:08)
[2018-02-26] MEDS: ALBUTEROL HFA 8 GM INHALER INH SCH ×5 (00:02→23:07)
[2018-02-26] MEDS: LACTATED RINGER'S 1000ML 1,000 ML IV SCH ×3 (01:09→11:14)
[2018-02-26] MEDS: METRONIDAZOLE / NSS 500 MG in PREMIXED NSS 100 ML IV SCH ×3 (01:09→16:06)
[2018-02-26] MEDS: LEVOTHYROXINE 75 MCG TAB PO SCH (05:44)
[2018-02-26 07:04] LABS: CALCIUM 8.7 mg/dl (8.5-10.1); CREATININE 2.74 mg/dl (0.60-1.20); POTASSIUM 3.6 mmol/L (3.5-5.1)
[2018-02-26] MEDS ORDERED: MAGNESIUM SULFATE 1GM / D5W 100 ML IV STA (07:43)
[2018-02-26] MEDS: CARVEDILOL 3.125 MG TAB PO SCH ×2 (08:16→20:40)
[2018-02-26] MEDS: TOPIRAMATE 50 MG TAB PO SCH ×2 (08:16→20:42)
[2018-02-26] MEDS: FLUTICASONE/SALMETEROL 250/50 (ADVAIR) 14 PUFF/1 INHALER INH SCH ×2 (08:16→20:36)
[2018-02-26] MEDS: FLAVOXATE HCL 100 MG PO SCH (08:17)
[2018-02-26] MEDS: INSULIN ASPART 100 UNITS/ML 3 ML PEN SC SCH ×4 (08:26→20:47)
[2018-02-26] MEDS: HEPARIN SOD 5000 UNIT/0.5 ML CARP SQ SCH ×2 (08:27→20:47)
[2018-02-26] MEDS: MAGNESIUM OXIDE 400 MG TAB PO SCH ×2 (08:27→20:47)
[2018-02-26] MEDS: FAMOTIDINE IV INJ 20 MG in SYRINGE 3 ML IV SCH (08:27)
--- NOTE | 2018-02-26 11:16 | PROGRESS NOTE ---
DATE: 02/26/2018 SUBJECTIVE: Patient reports no abdominal pain. She is having about 1 bowel movement a day for the last 48 hours. OBJECTIVE: VITAL SIGNS: Normal except for slightly elevated blood pressure of 151/77. Blood culture is growing a gram negative aristides. Final identification remains to be completed. Urine culture has been sent, although was taken after the patient was started on antibiotics, norovirus from the stool is also pending at this time. IMPRESSION: Patient has diarrhea and renal insufficiency. Creatinine today is 2.74, BUN 45 and these are both improving. Gram-negative bacteremia story remains unclear as to the etiology. Urine culture is pending at this time. We will continue to follow the patient. [facility]
--- NOTE | 2018-02-26 11:53 | Nephrology Progress Note ---
Nephrology Progress Note Date of Service Feb 26, 2018. Chief Complaint FELIPA / CKD Subjective Mrs. Mars reports that her diarrhea has resolved. She currently denies fever , abdominal pain or difficulty voiding. Review of Systems Constitutional: No fever Cardiovascular: No chest pain Respiratory: No dyspnea at rest Abdomen: No pain, No nausea, No vomiting Extremities: No leg edema A complete review of systems was performed. Pertinent positives are noted above. All other systems are negative. Vital Signs Last 8 Hrs Date Time Temp Pulse Resp B/P (MAP) Pulse Ox O2 Delivery O2 Flow Rate FiO2 02/26/18 08:00 95 Room Air 02/26/18 07:25 36.9 78 19 151/77 (101) 95 Room Air 02/26/18 04:40 36.6 85 18 124/76 (92) 97 02/26/18 04:00 Room Air Last Recorded Weight Weight (Kilograms): 52.300 Physical Exam General Appearance: no apparent distress Head: normocephalic, atraumatic Eyes: PERRL, EOMI Neck: no adenopathy Respiratory/Chest: lungs clear, no respiratory distress Cardiovascular: regular rate, rhythm Abdomen/GI: normal bowel sounds, non tender, soft Extremities/Musculoskelatal: no calf tenderness, no pedal edema Neurologic/Psych: alert, oriented x 3 Family History Cancer Diabetes mellitus Hypertension Kidney disease Lung disease Seizures Social History Smoking Status: Never smoker Drug Use: none Marital Status: single Occupation: unemployed Laboratory Results Past 24 Hours 02/25/18 15:54 02/26/18 05:40 Test 02/25/18 15:54 02/25/18 16:26 02/25/18 20:58 02/26/18 05:40 Anion Gap 5.0 mmol/L (3-11) 5.0 mmol/L (3-11) Est Creatinine Clear Calc Drug Dose 11.1 ml/min 13.2 ml/min Estimated GFR () 16.2 19.8 Estimated GFR (Non- 14.0 17.1 BUN/Creatinine Ratio 17.2 (10-20) 16.3 (10-20) Calcium Level 8.6 mg/dl (8.5-10.1) 8.7 mg/dl (8.5-10.1) Phosphorus Level 2.3 mg/dl (2.5-4.9) 2.0 mg/dl (2.5-4.9) Albumin 2.9 gm/dl (3.4-5.0) Bedside Glucose 117 mg/dl (70-90) 71 mg/dl (70-90) Magnesium Level 1.6 mg/dl (1.8-2.4) Thyroid Stimulating Hormone (TSH) 1.030 uIu/ml (0.300-4.500) Test 02/26/18 06:50 02/26/18 10:30 02/26/18 11:11 Bedside Glucose 118 mg/dl (70-90) 201 mg/dl (70-90) Allergies Coded Allergies: Fentanyl (Verified Allergy, Severe, MARKED CONFUSION W/ ABSENCE OF SEDATION, 02/24/18) Midazolam (Verified Allergy, Severe, MARKED CONFUSION W/ ABSENCE OF SEDATION, 02/24/18) Lamotrigine (Verified Allergy, Unknown, UNKNOWN, 02/24/18) Phenytoin (Verified Allergy, Unknown, UNKNOWN, 02/24/18) Medications Current Inpatient Medications Medications (Trade) Dose Ordered Sig/Garcia Route Start Time Stop Time Status Last Admin Dose Admin Albuterol (Ventolin Hfa Inhaler) 1 puffs Q6 INH 02/24/18 18:00 03/26/18 17:59 02/26/18 11:12 1 PUFFS Carvedilol (Coreg Tab) 3.125 mg BID PO 02/24/18 21:00 03/26/18 20:59 02/26/18 08:16 3.125 MG Flavoxate HCl (Urispas Tab) 50 mg DAILY PO 02/25/18 09:00 03/27/18 08:59 02/26/18 08:17 50 MG Salmeterol Xinafoate/ Fluticasone (Advair Diskus 250/50 Inh) 1 puff BID INH 02/24/18 21:00 03/26/18 20:59 02/26/18 08:16 1 PUFF Levothyroxine Sodium (Synthroid Tab) 75 mcg DAILYBB PO 02/25/18 06:00 03/27/18 06:59 02/26/18 05:44 75 MCG Lorazepam (Ativan Tab) 0.5 mg DAILY PRN PO 02/24/18 14:15 03/26/18 14:14 02/25/18 21:38 0.5 MG Topiramate (Topamax Tab) 50 mg BID PO 02/24/18 21:00 03/26/18 20:59 02/26/18 08:16 50 MG Metronidazole 500 mg/Prmx 100 ml @ 100 mls/hr Q8H IV 02/24/18 17:00 03/06/18 14:59 02/26/18 08:27 100 MLS/HR Ciprofloxacin/ Dextrose 400 mg/ Prmx 200 ml @ 100 mls/hr DAILY@1800 IV 02/24/18 18:00 03/06/18 17:59 02/25/18 17:33 100 MLS/HR Ondansetron HCl (Zofran Odt) 4 mg Q6H SL 02/24/18 18:00 03/26/18 14:14 02/26/18 05:44 4 MG Heparin Sodium (Porcine) (Heparin Sq 5000 Unit/0.5ml) 5,000 unit Q12 SQ 02/24/18 21:00 03/26/18 20:59 02/26/18 08:27 5,000 UNIT Acetaminophen (Tylenol Tab) 650 mg Q4H PRN PO 02/24/18 14:15 03/26/18 14:14 02/26/18 11:11 650 MG Al Hydrox/Mg Hydrox/Simethicone (Maalox Max Susp) 15 ml Q4H PRN PO 02/24/18 14:15 03/26/18 14:14 Magnesium Hydroxide (Milk Of Magnesia Susp) 30 ml Q12H PRN PO 02/24/18 14:15 03/26/18 14:14 Ondansetron HCl (Zofran Inj) 2 mg Q12H PRN IV 02/24/18 14:15 03/26/18 14:14 Morphine Sulfate (MoRPHine SULFATE INJ) 1 mg Q4H PRN IV 02/24/18 14:15 03/10/18 14:14 02/24/18 23:25 2 MG Insulin Aspart (novoLOG ASPART) SLIDING SCALE If C... ACHS SC 02/24/18 16:00 03/26/18 15:59 02/26/18 08:26 2 UNITS Glucose (Glucose 40% Gel) 15-30 GRAMS 15 GRAMS... UD PRN PO 02/24/18 14:15 03/26/18 14:14 Glucose (Glucose Chew Tab) 4-8 Tablets 4 Tabl... UD PRN PO 02/24/18 14:15 03/26/18 14:14 02/24/18 22:26 4 TABS Dextrose (Dextrose 50% 50ML Syringe) 25-50ML OF 50% DW IV FOR... UD PRN IV 02/24/18 14:15 03/26/18 14:14 Glucagon (Glucagon Inj) 1 mg UD PRN SQ 02/24/18 14:15 03/26/18 14:14 Famotidine 20 mg/ Syringe 5 ml @ 2.5 mls/min DAILY IV 02/25/18 09:00 03/27/18 08:59 02/26/18 08:27 2.5 MLS/MIN Lactated Ringer's 1,000 ml @ 120 mls/hr Q8H20M IV 02/24/18 19:00 03/26/18 18:59 02/26/18 11:14 120 MLS/HR Magnesium Oxide (Mag-Ox Tab) 400 mg BID PO 02/26/18 09:00 03/28/18 08:59 02/26/18 08:27 400 MG Impression (1) Acute renal insufficiency (2) CKD (chronic kidney disease), stage IV (3) Hypertension (4) Diarrhea Mrs. Mars is a 67-year-old female with acute on chronic kidney disease. She developed prerenal azotemia associated with dehydration due to diarrhea. Clinical suggestive of superimposed ATN. Creatinine is improving with intravascular volume expansion. The patient was taking lisinopril, HCTZ and NSAIDS at home. Abdominal CT revealed colitis. Kidneys without obstruction. UA/ microscopy was bland and acellular. Hypokalemia is being treated with oral replacement. Patient is tolerating IVF with LR @ 120 ml/hr. Baseline creatinine has been 1.7-2.0 mg/dL. Recommendations -- Diarrhea has resolved. Will reduce LR to 75 ml/hr -- Document I/O -- Replete potassium as needed -- Continue oral Magnesium supplementation -- Recheck renal profile tomorrow AM -- BP acceptable
--- NOTE | 2018-02-26 14:26 | DIAGNOSTIC IMAGING REPORT ---
SACRUM COCCYX MIN 2 VIEWS CLINICAL HISTORY: tail bone pain b/c fall when up at night 1 weeks ago trauma. Pain. COMPARISON STUDY: None FINDINGS: No acute bony abnormality. Sacral foramina are symmetric. No evidence for cortical disruption. IMPRESSION: No acute process. The above report was generated using voice recognition software. It may contain grammatical, syntax or spelling errors. Electronically signed by: Juventino Cunningham M.D. 02/26/2018 2:24 PM Dictated Date/Time: 02/26/2018 2:23 PM
[2018-02-26] MEDS ORDERED: SODIUM CHLORIDE 0.9% 1000ML 1,000 ML IV SCH (14:51)
--- NOTE | 2018-02-26 14:54 | Progress Note ---
Subjective Date of Service: Feb 26, 2018. Subjective Pt evaluation today including: conversation w/ patient, conversation w/ family , physical exam, chart review, lab review, review of studies, conversation w/ resourcing consultant, review of inpatient medication list Rectal tube was removed, diarrhea is slowing down, generally feeling better, report lower back pain in sacral area which was flowing fell about 1 week ago at home. Was found on the ground when up to the restroom and nighttime and continue has sacral area pain Problem List Medical Problems: (1) ARF (acute renal failure) Status: Acute (2) Dehydration Status: Acute (3) Diarrhea Status: Acute (4) Diffuse abdominal pain Status: Acute (5) Fever Status: Acute (6) Pansinusitis Status: Acute (7) UTI (urinary tract infection) Status: Acute Review of Systems Constitutional: + weakness, + fatigue, No fever, No chills, No sweats, No weight loss, No problem reported Eyes: No worsening of vision, No eye pain, No redness, No discharge, No diplopia ENT: No hearing loss, No unusual epistaxis, No nasal symptoms, No sore throat, No tinnitus, No dental problems, No trouble swallowing Respiratory: No cough, No sputum, No wheezing, No shortness of breath, No dyspnea on exertion, No dyspnea at rest, No hemoptysis Cardiac: No chest pain, No orthopnea, No PND, No edema, No claudication, No palpitations Abdomen: No pain, No nausea, No vomiting, No diarrhea, No constipation Musculoskeletal: + joint pain, No muscle pain, No swelling, No calf pain Female : No dysuria, No urinary frequency, No hematuria, No incontinence, No abnormal vaginal bleeding, No vaginal discharge Neurologic: No memory loss, No paralysis, No weakness, No numbness/tingling, No vertigo, No balance problems Psychiatric: No depression symptoms, No anhedonism, No anxiety, No insomnia, No substance abuse Heme: No abnormal bleeding/bruising, No clotting problems, No swollen lymph nodes, No night sweats Endo: No fatigue, No excessive thirst, No excessive urination Skin: No rash, No itch, No new/changing skin lesions, No color change, No bleeding Objective Vital Signs Date Time Temp Pulse Resp B/P (MAP) Pulse Ox O2 Delivery O2 Flow Rate FiO2 02/26/18 13:16 36.6 75 18 122/72 (89) 99 Room Air 02/26/18 12:00 95 Room Air 02/26/18 08:00 95 Room Air 02/26/18 07:25 36.9 78 19 151/77 (101) 95 Room Air 02/26/18 04:40 36.6 85 18 124/76 (92) 97 02/26/18 04:00 Room Air 02/25/18 23:59 Room Air 02/25/18 23:53 36.7 88 16 129/77 (94) 98 02/25/18 20:12 36.5 89 18 126/77 (93) 96 Room Air 02/25/18 20:00 96 Room Air 02/25/18 16:07 36.7 88 18 133/82 (99) 100 Room Air 02/25/18 16:00 100 Room Air Physical Exam General Appearance: WD/WN, no apparent distress, + thin, + pertinent finding ( Frail, tired, mild pale,) Eyes: normal inspection, PERRL, EOMI, sclerae normal ENT: normal ENT inspection, hearing grossly normal, pharynx normal Neck: supple, no adenopathy, thyroid normal, no JVD, no carotid bruits, trachea midline Respiratory/Chest: chest non-tender, normal breath sounds, no respiratory distress, no accessory muscle use, + decreased breath sounds Cardiovascular: regular rate, rhythm, no edema, no gallop, no JVD, no murmur Abdomen: normal bowel sounds, non tender, soft, no organomegaly, no pulsatile mass Extremities: normal range of motion, non-tender, normal inspection, no pedal edema, no calf tenderness, normal capillary refill, pelvis stable Neurologic/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 tested, no motor/sensory deficits, alert, normal mood/affect, oriented x 3 Skin: normal color, warm/dry, no rash Lymphatic: no adenopathy Laboratory Results Last 24 Hours Test 02/25/18 15:54 02/25/18 16:26 02/25/18 20:58 02/26/18 05:40 Sodium Level 137 mmol/L 139 mmol/L Potassium Level 3.5 mmol/L 3.6 mmol/L Chloride Level 108 mmol/L 110 mmol/L Carbon Dioxide Level 24 mmol/L 24 mmol/L Anion Gap 5.0 mmol/L 5.0 mmol/L Blood Urea Nitrogen 55 mg/dl 45 mg/dl Creatinine 3.23 mg/dl 2.74 mg/dl Est Creatinine Clear Calc Drug Dose 11.1 ml/min 13.2 ml/min Estimated GFR () 16.2 19.8 Estimated GFR (Non- 14.0 17.1 BUN/Creatinine Ratio 17.2 16.3 Random Glucose 130 mg/dl 123 mg/dl Calcium Level 8.6 mg/dl 8.7 mg/dl Phosphorus Level 2.3 mg/dl 2.0 mg/dl Albumin 2.9 gm/dl Bedside Glucose 117 mg/dl 71 mg/dl Magnesium Level 1.6 mg/dl Thyroid Stimulating Hormone (TSH) 1.030 uIu/ml Test 02/26/18 06:50 02/26/18 10:30 02/26/18 11:11 Bedside Glucose 118 mg/dl 201 mg/dl Assessment and Plan 67-year-old female admitted because of acute kidney failure secondary to severe diarrhea Past medical history of chronic kidney disease stage III, dyslipidemia, hypertension, diabetes mellitus type 2, asthma, hypothyroidism, depression and previous history of breast cancer Severe acute on chronic diarrhea, etiology unknown, mild improving C. difficile is negative, patient report has follow-up with Dr. Aldrich, GI saw the patient, checking stool for Norovirus and urine culture. Continue supportive measures Stop IV fluid, advance diet as tolerated, Gram-negative bacteremia, patient currently is on Cipro and Flagyl, repeat blood culture was sent today and will follow Acute kidney failure on chronic kidney disease, significantly improved, likely because of volume depletion, patient was taking lisinopril, HCTZ and NSAIDS at home, follow-up renal function and electrolytes Change IV fluid to NSS at 50 Sacral area pain from the fall, x-ray has no fracture, has ordered local heating pack DM type II on a low-dose insulin plus oral hypoglycemic HTN, currently hypotensive HLD Asthma currently has mild wheezing and decreased breathing sound, continue home inhaler Hypothyroid Depression Hx of breast cancer right breast s/p lumpectomy in 1999 The above conditions stable continue current medication GI DVT prophylaxis is covered Continued [facility] stay due to: multiple IV medications needed Discharge planning: uncertain
[2018-02-26] MEDS: CIPROFLOXACIN / D5W 400 MG in PREMIXED IN D5W 200 ML IV SCH (17:14)
[2018-02-26] MEDS: LORAZEPAM 0.5 MG TAB PO PRN (23:06)
[2018-02-27] MEDS: METRONIDAZOLE / NSS 500 MG in PREMIXED NSS 100 ML IV SCH ×3 (02:08→18:01)
[2018-02-27] MEDS: ALBUTEROL HFA 8 GM INHALER INH SCH ×4 (05:55→23:56)
[2018-02-27] MEDS: ONDANSETRON 4MG OD TAB SL SCH ×4 (05:56→23:57)
[2018-02-27] MEDS: LEVOTHYROXINE 75 MCG TAB PO SCH (05:57)
[2018-02-27 06:05] LABS: HEMATOCRIT 29.1 % (37-47); HEMOGLOBIN 10.2 g/dL (12.0-16.0); MEAN CELL VOLUME 87.1 fL (80-100); MEAN CORPUSCULAR HEMOGLOBIN 30.5 pg (25-34); MEAN CORPUSCULAR HGB CONC 35.1 g/dl (32-36); MEAN PLATELET VOLUME 10.6 fL (7.4-10.4); PLATELET COUNT 160 K/uL (130-400); RED CELL DISTRIBUTION WIDTH CV 12.4 % (11.5-14.5); RED CELL DISTRIBUTION WIDTH SD 39.9 fL (36.4-46.3); WHITE BLOOD COUNT 6.35 K/uL (4.8-10.8)
[2018-02-27 06:50] LABS: CALCIUM 8.3 mg/dl (8.5-10.1); CREATININE 2.24 mg/dl (0.60-1.20); POTASSIUM 3.4 mmol/L (3.5-5.1)
[2018-02-27 07:36] VITALS: BP 162/77; PULSE 76; TEMP 36.7; O2SAT 98
[2018-02-27] MEDS: FLUTICASONE/SALMETEROL 250/50 (ADVAIR) 14 PUFF/1 INHALER INH SCH ×2 (07:58→20:14)
[2018-02-27] MEDS: MAGNESIUM OXIDE 400 MG TAB PO SCH ×2 (07:59→20:15)
[2018-02-27] MEDS: CARVEDILOL 3.125 MG TAB PO SCH ×2 (07:59→20:15)
[2018-02-27] MEDS: FLAVOXATE HCL 100 MG PO SCH (07:59)
[2018-02-27] MEDS: TOPIRAMATE 50 MG TAB PO SCH ×2 (08:00→20:14)
[2018-02-27] MEDS ORDERED: POTASSIUM CHLORIDE 10 MEQ TABCR PO STA (08:39)
[2018-02-27] MEDS ORDERED: MAGNESIUM SULFATE 1GM / D5W 100 ML IV STA (08:39)
[2018-02-27] MEDS: HEPARIN SOD 5000 UNIT/0.5 ML CARP SQ SCH ×2 (09:00→20:19)
[2018-02-27] MEDS: FAMOTIDINE IV INJ 20 MG in SYRINGE 3 ML IV SCH (09:00)
[2018-02-27] MEDS: INSULIN ASPART 100 UNITS/ML 3 ML PEN SC SCH ×4 (09:23→20:20)
--- NOTE | 2018-02-27 10:47 | PROGRESS NOTE ---
DATE: 02/27/2018 SUBJECTIVE: Patient reports decreased diarrhea. She is tolerating solid food. OBJECTIVE: Her vital signs are normal except for a blood pressure of 162/77. White blood cell count is 6.35. Sodium is 140 but potassium is slightly low at 3.4, calcium is low at 8.3, magnesium is low at 1.6. Urine culture was negative. Stool culture for bacterial pathogens was negative. Fecal leukocytes were negative. C. diff was negative. Her blood culture is growing gram negative bacilli. Final identification and sensitivities are pending. IMPRESSION: The patient has probably a viral gastroenteritis and as a result of bacteremia which is being treated with antibiotics and improving, I suspect that her infection will improve as her immune system clears the virus from her digestive tract and the antibiotics will help eradicate the bacteremia. She will still need her electrolytes corrected before she is able to go home as well.
--- NOTE | 2018-02-27 12:08 | Nephrology Progress Note ---
Nephrology Progress Note Date of Service Feb 27, 2018. Chief Complaint FELIPA / CKD Subjective Mrs. Mars was seen & examined in her hospital room this morning. She reports that her diarrhea has slowed. She is now tolerating an oral diet and has been able to participate in PT this am. She voices no new medical concerns. Review of Systems Constitutional: No fever Cardiovascular: No chest pain Respiratory: No dyspnea at rest Abdomen: No pain, No nausea, No vomiting Extremities: No leg edema A complete review of systems was performed. Pertinent positives are noted above. All other systems are negative. Vital Signs Last 8 Hrs Date Time Temp Pulse Resp B/P (MAP) Pulse Ox O2 Delivery O2 Flow Rate FiO2 02/27/18 07:36 36.7 76 16 162/77 (105) 98 Room Air Last Recorded Weight Weight (Kilograms): 52.300 Physical Exam General Appearance: no apparent distress Head: normocephalic, atraumatic Eyes: PERRL, EOMI Neck: no adenopathy Respiratory/Chest: lungs clear, no respiratory distress Cardiovascular: regular rate, rhythm Abdomen/GI: normal bowel sounds, non tender, soft Extremities/Musculoskelatal: no calf tenderness, no pedal edema Neurologic/Psych: alert, oriented x 3 Family History Cancer Diabetes mellitus Hypertension Kidney disease Lung disease Seizures Social History Smoking Status: Never smoker Drug Use: none Marital Status: single Occupation: unemployed Laboratory Results Past 24 Hours 02/27/18 05:35 02/27/18 05:35 Test 02/26/18 16:22 02/26/18 20:42 02/27/18 05:35 02/27/18 07:38 Bedside Glucose 88 mg/dl (70-90) 106 mg/dl (70-90) 111 mg/dl (70-90) Red Blood Count 3.34 M/uL (4.2-5.4) Mean Corpuscular Volume 87.1 fL (80-100) Mean Corpuscular Hemoglobin 30.5 pg (25-34) Mean Corpuscular Hemoglobin Concent 35.1 g/dl (32-36) RDW Standard Deviation 39.9 fL (36.4-46.3) RDW Coefficient of Variation 12.4 % (11.5-14.5) Mean Platelet Volume 10.6 fL (7.4-10.4) Anion Gap 7.0 mmol/L (3-11) Est Creatinine Clear Calc Drug Dose 16.2 ml/min Estimated GFR () 25.3 Estimated GFR (Non- 21.8 BUN/Creatinine Ratio 10.6 (10-20) Calcium Level 8.3 mg/dl (8.5-10.1) Magnesium Level 1.6 mg/dl (1.8-2.4) Test 02/27/18 11:50 Bedside Glucose 229 mg/dl (70-90) Allergies Coded Allergies: Fentanyl (Verified Allergy, Severe, MARKED CONFUSION W/ ABSENCE OF SEDATION, 02/24/18) Midazolam (Verified Allergy, Severe, MARKED CONFUSION W/ ABSENCE OF SEDATION, 02/24/18) Lamotrigine (Verified Allergy, Unknown, UNKNOWN, 02/24/18) Phenytoin (Verified Allergy, Unknown, UNKNOWN, 02/24/18) Medications Current Inpatient Medications Medications (Trade) Dose Ordered Sig/Garcia Route Start Time Stop Time Status Last Admin Dose Admin Albuterol (Ventolin Hfa Inhaler) 1 puffs Q6 INH 02/24/18 18:00 03/26/18 17:59 02/27/18 05:55 1 PUFFS Carvedilol (Coreg Tab) 3.125 mg BID PO 02/24/18 21:00 03/26/18 20:59 02/27/18 07:59 3.125 MG Flavoxate HCl (Urispas Tab) 50 mg DAILY PO 02/25/18 09:00 03/27/18 08:59 02/27/18 07:59 50 MG Salmeterol Xinafoate/ Fluticasone (Advair Diskus 250/50 Inh) 1 puff BID INH 02/24/18 21:00 03/26/18 20:59 02/27/18 07:58 1 PUFF Levothyroxine Sodium (Synthroid Tab) 75 mcg DAILYBB PO 02/25/18 06:00 03/27/18 06:59 02/27/18 05:57 75 MCG Lorazepam (Ativan Tab) 0.5 mg DAILY PRN PO 02/24/18 14:15 03/26/18 14:14 02/26/18 23:06 0.5 MG Topiramate (Topamax Tab) 50 mg BID PO 02/24/18 21:00 03/26/18 20:59 02/27/18 08:00 50 MG Metronidazole 500 mg/Prmx 100 ml @ 100 mls/hr Q8H IV 02/24/18 17:00 03/06/18 14:59 02/27/18 09:00 100 MLS/HR Ciprofloxacin/ Dextrose 400 mg/ Prmx 200 ml @ 100 mls/hr DAILY@1800 IV 02/24/18 18:00 03/06/18 17:59 02/26/18 17:14 100 MLS/HR Ondansetron HCl (Zofran Odt) 4 mg Q6H SL 02/24/18 18:00 03/26/18 14:14 02/27/18 05:56 4 MG Heparin Sodium (Porcine) (Heparin Sq 5000 Unit/0.5ml) 5,000 unit Q12 SQ 02/24/18 21:00 03/26/18 20:59 02/26/18 08:27 5,000 UNIT Acetaminophen (Tylenol Tab) 650 mg Q4H PRN PO 02/24/18 14:15 03/26/18 14:14 02/26/18 11:11 650 MG Al Hydrox/Mg Hydrox/Simethicone (Maalox Max Susp) 15 ml Q4H PRN PO 02/24/18 14:15 03/26/18 14:14 Magnesium Hydroxide (Milk Of Magnesia Susp) 30 ml Q12H PRN PO 02/24/18 14:15 03/26/18 14:14 Ondansetron HCl (Zofran Inj) 2 mg Q12H PRN IV 02/24/18 14:15 03/26/18 14:14 Morphine Sulfate (MoRPHine SULFATE INJ) 1 mg Q4H PRN IV 02/24/18 14:15 03/10/18 14:14 02/24/18 23:25 2 MG Insulin Aspart (novoLOG ASPART) SLIDING SCALE If C... ACHS SC 02/24/18 16:00 03/26/18 15:59 02/27/18 09:23 3 UNITS Glucose (Glucose 40% Gel) 15-30 GRAMS 15 GRAMS... UD PRN PO 02/24/18 14:15 03/26/18 14:14 Glucose (Glucose Chew Tab) 4-8 Tablets 4 Tabl... UD PRN PO 02/24/18 14:15 03/26/18 14:14 02/24/18 22:26 4 TABS Dextrose (Dextrose 50% 50ML Syringe) 25-50ML OF 50% DW IV FOR... UD PRN IV 02/24/18 14:15 03/26/18 14:14 Glucagon (Glucagon Inj) 1 mg UD PRN SQ 02/24/18 14:15 03/26/18 14:14 Famotidine 20 mg/ Syringe 5 ml @ 2.5 mls/min DAILY IV 02/25/18 09:00 03/27/18 08:59 02/27/18 09:00 2.5 MLS/MIN Magnesium Oxide (Mag-Ox Tab) 400 mg BID PO 02/26/18 09:00 03/28/18 08:59 02/27/18 07:59 400 MG Impression (1) Acute renal insufficiency (2) CKD (chronic kidney disease), stage IV (3) Hypertension (4) Diarrhea Mrs. Mars is a 67-year-old female with acute on chronic kidney disease. She developed prerenal azotemia associated with dehydration due to diarrhea. Clinical suggestive of superimposed ATN. Creatinine is improving with intravascular volume expansion. The patient was taking lisinopril, HCTZ and NSAIDS at home. Abdominal CT revealed colitis. Kidneys without obstruction. UA/ microscopy was bland and acellular. Hypokalemia is being treated with oral replacement. Baseline creatinine has been 1.7-2.0 mg/dL. Recommendations -- Diarrhea has resolved. Heplock IV and encourage oral hydration -- Document I/O -- Replete potassium as needed -- Continue oral Magnesium supplementation -- Recheck renal profile tomorrow AM -- BP trending up. Will consider resuming JESSICA and thiazide diuretic in am
[2018-02-27 15:00] VITALS: BP 113/71; PULSE 88; TEMP 36.8; O2SAT 97
[2018-02-27] MEDS ORDERED: LOPERAMIDE HCL 2 MG CAP PO PRN (17:45)
[2018-02-27] MEDS ORDERED: LOPERAMIDE HCL 2 MG CAP PO STA (17:45)
--- NOTE | 2018-02-27 17:57 | Progress Note ---
Subjective Date of Service: Feb 27, 2018. Subjective Pt evaluation today including: conversation w/ patient, physical exam, chart review, lab review, review of studies, conversation w/ pmo consultant, review of inpatient medication list Report diarrhea is improving, 1 diarrhea yesterday, today has 3 diarrhea so far , has tried some clear liquid diet, but has no appetite, denies fever and chill , deny abdominal cramping pain, denies bloody stool Problem List Medical Problems: (1) ARF (acute renal failure) Status: Acute (2) Dehydration Status: Acute (3) Diarrhea Status: Acute (4) Diffuse abdominal pain Status: Acute (5) Fever Status: Acute (6) Pansinusitis Status: Acute (7) UTI (urinary tract infection) Status: Acute Review of Systems Constitutional: + weakness, + fatigue, No fever, No chills, No sweats, No weight loss, No problem reported Eyes: No worsening of vision, No eye pain, No redness, No discharge, No diplopia ENT: No hearing loss, No unusual epistaxis, No nasal symptoms, No sore throat, No tinnitus, No dental problems, No trouble swallowing Respiratory: No cough, No sputum, No wheezing, No shortness of breath, No dyspnea on exertion, No dyspnea at rest, No hemoptysis Cardiac: No chest pain, No orthopnea, No PND, No edema, No claudication, No palpitations Abdomen: No pain, No nausea, No vomiting, No diarrhea, No constipation Musculoskeletal: No joint pain, No muscle pain, No swelling, No calf pain Female : No dysuria, No urinary frequency, No hematuria, No incontinence, No abnormal vaginal bleeding, No vaginal discharge Neurologic: No memory loss, No paralysis, No weakness, No numbness/tingling, No vertigo, No balance problems Psychiatric: No depression symptoms, No anhedonism, No anxiety, No insomnia, No substance abuse Heme: No abnormal bleeding/bruising, No clotting problems, No swollen lymph nodes, No night sweats Endo: No fatigue, No excessive thirst, No excessive urination Skin: No rash, No itch, No new/changing skin lesions, No color change, No bleeding Objective Vital Signs Date Time Temp Pulse Resp B/P (MAP) Pulse Ox O2 Delivery O2 Flow Rate FiO2 02/27/18 15:40 Room Air 02/27/18 15:00 36.8 88 18 113/71 (85) 97 02/27/18 10:00 Room Air 02/27/18 07:36 36.7 76 16 162/77 (105) 98 Room Air 02/27/18 00:00 Room Air 02/26/18 23:34 36.5 75 18 146/71 (96) 99 Room Air 02/26/18 20:41 78 155/81 (105) 02/26/18 20:00 Room Air Physical Exam General Appearance: WD/WN, no apparent distress, + thin, + pertinent finding ( Chronic ill looking, mild pale,) Eyes: normal inspection, PERRL, EOMI, sclerae normal ENT: normal ENT inspection, hearing grossly normal, pharynx normal Neck: supple, no adenopathy, thyroid normal, no JVD, no carotid bruits, trachea midline Respiratory/Chest: chest non-tender, normal breath sounds, no respiratory distress, no accessory muscle use, + decreased breath sounds Cardiovascular: regular rate, rhythm, no edema, no gallop, no JVD, no murmur Abdomen: normal bowel sounds, non tender, soft, no organomegaly, no pulsatile mass Extremities: normal range of motion, non-tender, normal inspection, no pedal edema, no calf tenderness, normal capillary refill, pelvis stable 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, no motor/sensory deficits, alert, normal mood/affect, oriented x 3 Skin: normal color, warm/dry, no rash Lymphatic: no adenopathy Laboratory Results Last 24 Hours Test 02/26/18 20:42 02/27/18 05:35 02/27/18 07:38 02/27/18 11:50 Bedside Glucose 106 mg/dl 111 mg/dl 229 mg/dl White Blood Count 6.35 K/uL Red Blood Count 3.34 M/uL Hemoglobin 10.2 g/dL Hematocrit 29.1 % Mean Corpuscular Volume 87.1 fL Mean Corpuscular Hemoglobin 30.5 pg Mean Corpuscular Hemoglobin Concent 35.1 g/dl RDW Standard Deviation 39.9 fL RDW Coefficient of Variation 12.4 % Platelet Count 160 K/uL Mean Platelet Volume 10.6 fL Sodium Level 140 mmol/L Potassium Level 3.4 mmol/L Chloride Level 110 mmol/L Carbon Dioxide Level 24 mmol/L Anion Gap 7.0 mmol/L Blood Urea Nitrogen 24 mg/dl Creatinine 2.24 mg/dl Est Creatinine Clear Calc Drug Dose 16.2 ml/min Estimated GFR () 25.3 Estimated GFR (Non- 21.8 BUN/Creatinine Ratio 10.6 Random Glucose 121 mg/dl Calcium Level 8.3 mg/dl Magnesium Level 1.6 mg/dl Test 02/27/18 16:28 Bedside Glucose 85 mg/dl Assessment and Plan 67-year-old female admitted because of acute kidney failure secondary to severe diarrhea Past medical history of chronic kidney disease stage III, dyslipidemia, hypertension, diabetes mellitus type 2, asthma, hypothyroidism, depression and previous history of breast cancer Severe acute on chronic diarrhea, etiology unknown, possible virus gastroenteritis, discontinue improving C. difficile is negative, patient report has follow-up with Dr. Aldrich, GI saw the patient, checking stool for Norovirus and urine culture. Continue supportive measures Stop IV fluid, advance diet as tolerated, and follow her electrolytes Gram-negative bacteremia, patient currently is on Cipro and Flagyl, repeat blood culture was sent yesterday Possible can continue Cipro which can be changed to oral, possible discontinue Flagyl after sensitivity comes back Acute kidney failure on chronic kidney disease, significantly improved, likely because of volume depletion, Renal function continue improving possible approaching to baseline patient was taking lisinopril, HCTZ and NSAIDS at home, follow-up renal function and electrolytes, replace as needed Discontinue IV fluid , encourage oral fluid intake we will follow-up renal function Hypokalemia and hypomanic was replaced Sacral area pain from the fall, x-ray has no fracture, has ordered local heating pack DM type II on a low-dose insulin plus oral hypoglycemic HTN, currently hypotensive HLD Asthma currently has mild wheezing and decreased breathing sound, continue home inhaler Hypothyroid Depression Hx of breast cancer right breast s/p lumpectomy in 1999 The above conditions stable continue current medication, possible discharge in day 1-2 , if she able to tolerate diet and and electrolytes is normal GI DVT prophylaxis is covered Continued [facility] stay due to: multiple IV medications needed Discharge planning: home
[2018-02-27] MEDS: CIPROFLOXACIN / D5W 400 MG in PREMIXED IN D5W 200 ML IV SCH (18:00)
[2018-02-27 20:22] VITALS: BP 141/86; PULSE 94
[2018-02-27 23:12] VITALS: BP 156/81; PULSE 78; TEMP 37; O2SAT 100
[2018-02-28] VITALS: O2SAT 100
[2018-02-28] MEDS: LORAZEPAM 0.5 MG TAB PO PRN ×2 (00:24→09:08)
[2018-02-28] MEDS: METRONIDAZOLE / NSS 500 MG in PREMIXED NSS 100 ML IV SCH ×2 (01:00→10:16)
[2018-02-28] MEDS: ALBUTEROL HFA 8 GM INHALER INH SCH ×2 (05:49→12:09)
[2018-02-28] MEDS: LEVOTHYROXINE 75 MCG TAB PO SCH (05:50)
[2018-02-28] MEDS: ONDANSETRON 4MG OD TAB SL SCH ×2 (05:52→12:11)
[2018-02-28 07:18] LABS: CALCIUM 8.4 mg/dl (8.5-10.1); CREATININE 2.5 mg/dl (0.60-1.20); PHOSPHORUS 2.2 mg/dl (2.5-4.9); POTASSIUM 3.8 mmol/L (3.5-5.1)
[2018-02-28 07:46] VITALS: BP 159/81; PULSE 70; TEMP 36.8; O2SAT 96
[2018-02-28] MEDS ORDERED: MAGNESIUM SULFATE 1GM / D5W 100 ML IV STA (08:04)
[2018-02-28] MEDS: HEPARIN SOD 5000 UNIT/0.5 ML CARP SQ SCH (09:00)
[2018-02-28] MEDS: FLUTICASONE/SALMETEROL 250/50 (ADVAIR) 14 PUFF/1 INHALER INH SCH (09:04)
[2018-02-28] MEDS: FLAVOXATE HCL 100 MG PO SCH (09:04)
[2018-02-28] MEDS: TOPIRAMATE 50 MG TAB PO SCH (09:04)
[2018-02-28] MEDS: CARVEDILOL 3.125 MG TAB PO SCH (09:05)
[2018-02-28] MEDS: MAGNESIUM OXIDE 400 MG TAB PO SCH (09:05)
[2018-02-28] MEDS: INSULIN ASPART 100 UNITS/ML 3 ML PEN SC SCH ×2 (09:07→12:14)
[2018-02-28] MEDS: FAMOTIDINE IV INJ 20 MG in SYRINGE 3 ML IV SCH (09:09)
[2018-02-28] MEDS ORDERED: IMD2X PO (11:52)
[2018-02-28] MEDS ORDERED: METR-163 PO (11:52)
--- NOTE | 2018-02-28 11:58 | Discharge Instructions ---
Discharge Instructions Date of Service Feb 28, 2018. Admission Reason for Admission: Acute renal failure, diarrhea Discharge Discharge Diagnosis / Problem: Acute renal failure, diarrhea Discharge Goals Goal(s): Improve function, Improve disease control, Diagnostic testing (lab work) Activity Recommendations Activity Limitations: resume your previous activity . Instructions / Follow-Up Instructions / Follow-Up Medications: - FLAGYL: three times a day, antibiotic to treat diarrheal illness - IMODIUM: continue to use only as needed for diarrhea - LISINOPRIL/HCTZ: continue to hold this medication as it can make kidney function worse, do not resume until instructed to do so by physician - MELOXICAM; hold this medication as NSAIDs can make kidney function worse Acute renal failure due to dehydration from diarrhea improving, Cr is 2.5 today from 6.15 on admission main treatment will be aggressive hydration by mouth for the next several days and holding medications that can be harmful to kidneys I want you to drink at least 1.5 liters of fluid a day, try to drink more if you can make sure some of the fluid has electrolytes (Gatorade, vitamin water etc) want you to get lab work on Friday 03/02 and I will call you with results please get appointment with Dr. Holland in one week diarrhea is likely viral, C diff testing was negative, testing for Giardia, fungal infection, Norovirus still pending FOLLOW UP - labs on 03/02 - please call for appointment with Dr. Holland within 5-7 days, request hospital follow up Current Hospital Diet Patient's current hospital diet: Renal Diet, Diabetes Type 2 Diet Discharge Diet Recommended Diet: Diabetes Type 2 Diet Pending Studies Studies pending at discharge: no Laboratory Results Hemoglobin A1c Test 02/25/18 06:33 Range/Units Estimated Average Glucose 151 mg/dl Hemoglobin A1c 6.9 H 4.5-5.6 % Lipid Panel Test 12/23/17 13:46 Range/Units Triglycerides Level 65 0-150 mg/dl Cholesterol Level 164 0-200 mg/dl HDL Cholesterol 78 mg/dl Cholesterol/HDL Ratio 2.1 LDL Cholesterol, Calculated 73 mg/dl Medical Emergencies . Who to Call and When: Medical Emergencies: If at any time you feel your situation is an emergency, please call 911 immediately. . Non-Emergent Contact Non-Emergency issues call your: Primary Care Provider Call Non-Emergent contact if: you have any medication questions . . "Provider Documentation" section prepared by Cb Jackson . [facility] Monitoring Program Search Results: no issues identified
[2018-02-28] MEDS ORDERED: ONDA4TAB10 SL (12:19)
[2018-02-28 13:19] VITALS: BP 159/81; PULSE 70; TEMP 36.8; O2SAT 96
== END 2018-02-28 14:00 | disposition home or self-care (01) | DRG 391 ==
LOC: C.EDB 11:50 → C.2T 14:53 → ENRESERV 15:21 → C.4E 02-26 15:26
PROVIDERS: ADMIT Internal Medicine; ATTEND Internal Medicine
DX: A09 Infectious gastroenteritis and colitis, unspecified (principal); N17.0 Acute kidney failure with tubular necrosis; N18.4 Chronic kidney disease, stage 4 (severe); I13.0 Hypertensive heart and chronic kidney disease with heart failure and stage 1 through stage 4 chronic kidney disease, or unspecified chronic kidney disease; J45.909 Unspecified asthma, uncomplicated; E11.9 Type 2 diabetes mellitus without complications; E78.5 Hyperlipidemia, unspecified; E86.0 Dehydration; E87.6 Hypokalemia; F32.9 Major depressive disorder, single episode, unspecified; E03.9 Hypothyroidism, unspecified; Z79.4 Long term (current) use of insulin; Z85.3 Personal history of malignant neoplasm of breast; Z79.82 Long term (current) use of aspirin; Z80.9 Family history of malignant neoplasm, unspecified; Z83.3 Family history of diabetes mellitus; Z82.49 Family history of ischemic heart disease and other diseases of the circulatory system; Z84.1 Family history of disorders of kidney and ureter; Z82.0 Family history of epilepsy and other diseases of the nervous system

== ENCOUNTER → 2018-03-07 | Outpatient (CLI) | payer OTHER ==
[~2018-03-07] MED LIST changes: +ADVIN25/60 INH; +AMLO-114 PO; -AMLO5TAB4 PO; -ATEN100T PO; +ATOR-24 PO; +CALC-393 PO; +CARV25TA2 PO; +CIPR1TAB11 PO; +FLAV1TAB3 PO; -FLUT1INH7 INH; -FLUT27.53 NAE; +IMD2X PO; -LISI30TA3 PO; +METH500T37 PO; +METR-163 PO; +ONDA4TAB10 SL; -SIMV40TA2 PO; -SNG10 PO
[2018-03-07 13:53] LABS: BLOOD UREA NITROGEN 20 mg/dl (7-18); CALCIUM 8.2 mg/dl (8.5-10.1); CARBON DIOXIDE 20 mmol/L (21-32); CREATININE 2.13 mg/dl (0.60-1.20); GLUCOSE 131 mg/dl (70-99); PHOSPHORUS 3.4 mg/dl (2.5-4.9); POTASSIUM 3.8 mmol/L (3.5-5.1); SODIUM 138 mmol/L (136-145)
== END | disposition home or self-care (01) ==
LOC: C.LABBC 11:04
PROVIDERS: ATTEND Family Medicine Adult Medicine
DX: N18.3 Chronic kidney disease, stage 3 (moderate) (principal); D63.1 Anemia in chronic kidney disease

== ENCOUNTER 2018-03-15 12:28 | Emergency (ER) | payer OTHER ==
[~2018-03-15] VITALS: Ht 142.2 cm; Wt 51.5 kg
[~2018-03-15 12:28] MED LIST changes: -CIPR1TAB11 PO; -METR-163 PO
[2018-03-15 12:31] VITALS: TEMP 36.6; Ht 142.2 cm; Wt 51.5 kg
[2018-03-15] MEDS ORDERED: ALBUT/IPRATROP 3MG/0.5MG NEB 3 ML VIAL INH STA (12:44)
[2018-03-15] MEDS ORDERED: SODIUM CHLORIDE 0.9% 1000ML 1,000 ML IV STA (12:44)
[2018-03-15] MEDS: METHYLPREDNISOLONE 125 MG VIAL IV STA ×2 (12:44→13:03)
[2018-03-15] MEDS: ACETAMINOPHEN IV 650 MG in EMPTY BAG 0 ML IV ONE ×2 (12:45→13:15)
[2018-03-15 13:16] LABS: BASO % 1.5 %; BASO ABS # 0.13 K/uL (0-0.2); EOS % 29.2 %; EOS ABS # 2.55 K/uL (0-0.5); HEMATOCRIT 34.2 % (37-47); HEMOGLOBIN 11.5 g/dL (12.0-16.0); IG# 0.02 K/uL (0.00-0.02); LYMPH ABS # 2.18 K/uL (1.2-3.4); MEAN CELL VOLUME 91.2 fL (80-100); MEAN CORPUSCULAR HEMOGLOBIN 30.7 pg (25-34); MEAN CORPUSCULAR HGB CONC 33.6 g/dl (32-36); MEAN PLATELET VOLUME 10.2 fL (7.4-10.4); MONO % 6.6 %; MONO ABS # 0.58 K/uL (0.11-0.59); NEUT % 37.5 %; NEUT ABS # 3.27 K/uL (1.4-6.5); PLATELET COUNT 295 K/uL (130-400); RED CELL DISTRIBUTION WIDTH CV 15.2 % (11.5-14.5); WHITE BLOOD COUNT 8.73 K/uL (4.8-10.8)
--- NOTE | 2018-03-15 13:33 | DIAGNOSTIC IMAGING REPORT ---
CHEST 2 VIEWS ROUTINE CLINICAL HISTORY: 67 years-old Female presenting with EVALUATE RESPIRATORY DISTRESS.DYSPNEA. TECHNIQUE: PA view of the chest was obtained. COMPARISON: 02/24/2018. FINDINGS: Atherosclerosis of the aortic arch. Cardiac silhouette normal in size. Lungs and pleural spaces clear. Osseous structures normal. Upper abdomen normal. IMPRESSION: 1. No acute cardiopulmonary disease. Electronically signed by: Lowell Paredes M.D. 03/15/2018 1:32 PM Dictated Date/Time: 03/15/2018 1:31 PM
[2018-03-15 13:34] LABS: ALBUMIN 3.5 gm/dl (3.4-5.0); ALT/SGPT 40 U/L (12-78); AST/SGOT 24 U/L (15-37); BLOOD UREA NITROGEN 21 mg/dl (7-18); CALCIUM 8.6 mg/dl (8.5-10.1); CARBON DIOXIDE 20 mmol/L (21-32); CREATININE 2.16 mg/dl (0.60-1.20); GLUCOSE 158 mg/dl (70-99); POTASSIUM 3.7 mmol/L (3.5-5.1); SODIUM 139 mmol/L (136-145)
[2018-03-15 13:38] LABS: ALKALINE PHOSPHATASE 68 U/L (45-117); TOTAL PROTEIN 6.8 gm/dl (6.4-8.2)
[2018-03-15 14:40] VITALS: BP 137/76; PULSE 70; O2SAT 99
--- NOTE | 2018-03-15 18:48 | EMERGENCY ROOM VISIT NOTE ---
ED Visit Note First contact with patient: 12:36 Chief Complaint: I am having an asthma attack. History of Present Illness: Ms. Mars is a 67-year-old white female who ambulates into the ED accompanied by female friend complaining of shortness of breath. Historically patient has a history of asthma. Patient reports she started feeling short of breath last night approximately 1213 hrs. before she her arrived in the emergency department. Before that she reports that she has had intermittent asthma exacerbations over the last week and a persistent mildly productive cough of clear sputum. She has been using her inhalers as prescribed and has had no relief of her symptoms. Additionally when she is experiencing coughing episodes she develops "severe" anterior chest pain and when she is not coughing she has no chest discomfort. She describes this discomfort as a sharp sensation. Her pain is nonradiating. She has not taken any medications for her pain. She denies fevers, chills, sweats, skin eruptions, skin color changes, decreased appetite, nausea, vomiting, abdominal pain, previous clots, claudication, cramping, hemoptysis, palpitations, recent surgery/extended travel ; she does report that last month she was admitted to the hospital for a few days. Review of Systems: As noted above in history of present illness. All body systems were reviewed and found to be negative as noted above. Past Medical History: As noted above and acute renal insufficiency, chronic kidney disease, diabetes, breast cancer, dyslipidemia, hypertension. Current Medications: Medications Dose Route/Sig Max Daily Dose Days Date Category Dose Instructions Zofran Odt (Ondansetron HCl) 4 Mg Tab 4 Mg SL Q6H 02/28/18 Rx Imodium (Loperamide Hcl) 2 Mg Cap 2 Mg PO Q4H PRN 02/28/18 Rx Prandin (Repaglinide) 2 Mg Tab 4 Mg PO QDD 02/24/18 Reported PT TAKES WITH EVENING MEAL WHEN SHE DOESN'T TAKE NOVOLOG Coreg (Carvedilol) 25 Mg Tab 25 Mg PO BID 02/24/18 Reported Norvasc (Amlodipine Besylate) 10 Mg Tab 10 Mg PO DAILY 02/24/18 Reported Calcium (Calcium Carbonate) 600 Mg Tab 600 Mg PO DAILY 02/24/18 Reported Lipitor (Atorvastatin Calcium) 40 Mg Tab 40 Mg PO HS 02/24/18 Reported Topamax (Topiramate) 200 Mg Tab 200 Mg PO BID 02/24/18 Reported Robaxin (Methocarbamol) 500 Mg Tab 500 Mg PO BID 02/24/18 Reported Ventolin Hfa (Albuterol) 200 Puffs/16019 Mcg Aers 1-2 Puffs INH Q6H 02/24/18 Reported Advair Diskus 250/50 60 Dose (Fluticasone Prop/Salmeterol) 1 Ea Aerp 1 Puff INH QID 02/24/18 Reported Levothyroxine Sodium 75 Mcg Tab 1 Tab PO QAM 12/16/16 Reported Aspirin Ec (Aspirin) 81 Mg Tab 81 Mg PO QAM 08/09/14 Reported Lorazepam 1 Mg Tab 0.5-1 Mg PO DAILY PRN 03/31/13 Reported Allergies to Medications: Fentanyl, lamotrigine, midazolam, phenytoin. Social History: Patient is not employed; she feels safe in her home environment ; she denies tobacco use. Physical Examination: Vital Signs: Date Time Temp Pulse Resp B/P (MAP) Pulse Ox O2 Delivery O2 Flow Rate FiO2 03/15/18 14:40 70 137/76 99 Room Air 03/15/18 13:12 100 Room Air 03/15/18 12:58 66 03/15/18 12:31 36.6 74 20 140/85 98 Room Air GENERAL: 67-year-old female in mild respiratory distress, afebrile and hemodynamically stable. NEUROLOGICAL: Awake, alert and oriented to person, place and time. Answering questions appropriately and following commands. Normal gait. Good hand eye coordination. No focal motor sensory deficits. SKIN: Warm, dry and pink. No soft tissue eruptions or trauma noted. HEENT: Atraumatic and normocephalic. PERRLA. Sclera white and conjunctiva pink. No drainage from naris. Oral cavity moist and pink. Airway patent. Pharynx is nonerythematous or edematous. Speech soft but normal and clear. No lymphadenopathy. Trachea midline. No jugular venous distention. BACK: No tenderness over the bony spine. No CVA tenderness. THORAX: Lungs sounds are decreased bilaterally with diffuse expiratory wheezing. Metrical chest wall movements. No rales or rhonchi. Mild increase in respiratory effort but not rate. No crepitus, tenderness, subcutaneous air or deformities noted. HEART: Regular rate and rhythm. No gallops, rubs or murmurs are appreciated. ABDOMEN: Flat, soft and nontender. Positive bowel sounds in all quadrants. No guarding, rigidity or organomegaly. EXTREMITIES: Moves all extremities well on command and with purpose. All distal neurovascular statuses are intact and equal bilaterally. No calf tenderness or cords. ED Course: Patient is assessed as noted above. Patient's medication list was reviewed. Laboratory Testing: Test 03/15/18 13:00 Range/Units White Blood Count 8.73 4.8-10.8 K/uL Red Blood Count 3.75 4.2-5.4 M/uL Hemoglobin 11.5 12.0-16.0 g/dL Hematocrit 34.2 37-47 % Mean Corpuscular Volume 91.2 80-100 fL Mean Corpuscular Hemoglobin 30.7 25-34 pg Mean Corpuscular Hemoglobin Concent 33.6 32-36 g/dl Platelet Count 295 130-400 K/uL Mean Platelet Volume 10.2 7.4-10.4 fL Neutrophils (%) (Auto) 37.5 % Lymphocytes (%) (Auto) 25.0 % Monocytes (%) (Auto) 6.6 % Eosinophils (%) (Auto) 29.2 % Basophils (%) (Auto) 1.5 % Neutrophils # (Auto) 3.27 1.4-6.5 K/uL Lymphocytes # (Auto) 2.18 1.2-3.4 K/uL Monocytes # (Auto) 0.58 0.11-0.59 K/uL Eosinophils # (Auto) 2.55 0-0.5 K/uL Basophils # (Auto) 0.13 0-0.2 K/uL RDW Standard Deviation 51.0 36.4-46.3 fL RDW Coefficient of Variation 15.2 11.5-14.5 % Immature Granulocyte % (Auto) 0.2 % Immature Granulocyte # (Auto) 0.02 0.00-0.02 K/uL Sodium Level 139 136-145 mmol/L Potassium Level 3.7 3.5-5.1 mmol/L Chloride Level 111 98-107 mmol/L Carbon Dioxide Level 20 21-32 mmol/L Anion Gap 8.0 3-11 mmol/L Blood Urea Nitrogen 21 7-18 mg/dl Creatinine 2.16 0.60-1.20 mg/dl Est Creatinine Clear Calc Drug Dose 16.7 ml/min Estimated GFR () 26.4 Estimated GFR (Non- 22.8 BUN/Creatinine Ratio 9.7 10-20 Random Glucose 158 70-99 mg/dl Calcium Level 8.6 8.5-10.1 mg/dl Total Bilirubin 0.5 0.2-1 mg/dl Aspartate Amino Transf (AST/SGOT) 24 15-37 U/L Alanine Aminotransferase (ALT/SGPT) 40 12-78 U/L Alkaline Phosphatase 68 45-117 U/L Troponin I < 0.015 0-0.045 ng/ml Total Protein 6.8 6.4-8.2 gm/dl Albumin 3.5 3.4-5.0 gm/dl Globulin 3.3 2.5-4.0 gm/dl Albumin/Globulin Ratio 1.1 0.9-2 EKG: Was read by myself and reviewed with Dr. Carroll; shows normal sinus rhythm with a ventricular rate of 68 bpm. Normal axis and intervals. T-wave abnormality in the inferior lateral area. This was compared to a previous from January 2018 and no acute changes were noted. Chest X-Rays: Were read by myself and the radiologist showing no acute infiltrates, effusions or pneumothorax. Normal heart silhouette and bony anatomy. Atherosclerosis is noted in the aortic arch and there is no free air under the diaphragm. This was compared to previous from January 2018 and no acute changes were noted. Patient was hydrated with normal saline and received 650 mg of acetaminophen IV for pain and an albuterol/Atrovent nebulizer breathing treatment; patient was offered steroid and refused because of her diabetes. After her breathing treatment she was reassessed and was in no no acute distress with either increased respiratory effort or rate. Her lungs were clear to auscultation and equal bilaterally. Patient's case was reviewed with Dr. Carroll; she independently assessed the patient we agreed on diagnostic approach, treatment, disposition and plan. Patient was educated about today's findings and instructed on her treatment plan ; she verbalized understanding and agreement with this plan. Clinical Impression: Asthma exacerbation. Decision-Making: Initially my differential diagnosis I considered asthma exacerbation, pneumonia, bronchitis, acute coronary syndrome, pulmonary embolism , aortic dissection, and other causes. Disposition: Patient discharged home in stable condition accompanied by female friend; prior to departure she subjectively reported that she was pain and symptom-free. Plan: Patient was encouraged to continue her current medications as prescribed. Patient was encouraged to use 650 mg of acetaminophen every 6 hours as needed for pain. Patient was encouraged to use 2 puffs of her albuterol inhaler with spacer every 6 hours for the next 5 days and as needed for shortness of breath/ wheezing or severe coughing episodes. Patient was encouraged to contact her PCP later today or early tomorrow and inform them of today's ED visit and request follow-up care and treatment in 2-3 days. Patient was encouraged to return to the ED for worsening shortness of breath/ wheezing, uncontrolled coughing, fevers, coughing up blood or any new/ concerning symptoms.
== END 2018-03-15 15:05 | disposition home or self-care (01) ==
LOC: C.EDB 12:29 → C.EDA 15:05
DX: J45.901 Unspecified asthma with (acute) exacerbation (principal); N18.9 Chronic kidney disease, unspecified; E11.9 Type 2 diabetes mellitus without complications; E78.5 Hyperlipidemia, unspecified; I10 Essential (primary) hypertension; Z85.3 Personal history of malignant neoplasm of breast; Z79.82 Long term (current) use of aspirin; Z79.899 Other long term (current) drug therapy; Z88.8 Allergy status to other drugs, medicaments and biological substances

== ENCOUNTER → 2018-06-16 | Outpatient (CLI) | payer OTHER ==
[~2018-06-16] MED LIST changes: -AMLO-114 PO; +AMLO10TA3 PO; -FLAV1TAB3 PO; +METH-445 PO; -METH500T37 PO; -NVLGI/PEN SQ
--- NOTE | 2018-06-16 17:08 | DIAGNOSTIC IMAGING REPORT ---
MRI OF THE LEFT SHOULDER CLINICAL HISTORY: Left shoulder pain. Adhesive capsulitis. COMPARISON STUDY: Radiographs of the left shoulder dated 12/21/2017. TECHNIQUE: MRI of the left shoulder was performed utilizing various T1 and T2 weighted sequences in the axial, sagittal, coronal planes. IV contrast was not administered for this examination. FINDINGS: Rotator cuff: There is mild tendinopathy of the supraspinatus and intraspinous tendons. No significant tearing is seen. The teres minor and subscapularis tendons are intact. There is subacromial and subdeltoid bursal fluid. Mild productive degenerative change is seen at the acromioclavicular joint. Biceps tendon: The long head of the biceps tendon is normal in signal intensity and located within the bicipital groove. The anchor is maintained. Labrum: There is circumferential tearing/maceration of the glenoid labrum. Shoulder joint: There is diffuse thickening of the inferior glenohumeral ligament. No joint effusion is identified. Mildly increased signal is noted within the rotator interval. The articular cartilage over the glenoid is well maintained. Mild arthritic change is present within the greater tuberosity of the humeral head with subchondral cyst formation. There is no MRI evidence of fracture. Musculature and soft tissues: The musculature of the shoulder is normal in bulk and signal intensity. No atrophy is seen. IMPRESSION: 1. There is thickening and heterogeneity of the inferior glenohumeral ligament, as well as slightly increased signal within the rotator interval. The findings suggest adhesive capsulitis as clinically suspected. 2. There is mild rotator cuff tendinopathy with no significant tearing seen. 3. There is circumferential degenerative tearing/maceration of the glenoid labrum. 4. The long head of the biceps tendon appears preserved. Electronically signed by: Caden Calderon M.D. 06/16/2018 5:07 PM Dictated Date/Time: 06/16/2018 4:59 PM
== END | disposition home or self-care (01) ==
LOC: C.MRIBC 15:41
PROVIDERS: ATTEND Orthopaedic Surgery
DX: M75.02 Adhesive capsulitis of left shoulder (principal)

== ENCOUNTER 2023-11-10 09:34 | Inpatient (IN) ==
[2023-11-10] MEDS ORDERED: ONDANSETRON INJ 2 MG/ML 2 ML VIAL IV STA (09:47)
--- NOTE | 2023-11-10 09:53 | Emergency Department Note ---
Impression & Plan DKA (diabetic ketoacidosis), Nausea & vomiting, Weakness ED Provider Note Provider: Helio Elliott MD DATE OF SERVICE: 11/10/2023 CHIEF COMPLAINT: Vomiting, abdominal pain, dehydration HISTORY OF PRESENT ILLNESS: Patient is a 73-year-old female past medical history of CKD, asthma, anxiety, partial seizure disorder, hypothyroidism, osteoporosis, type 2 diabetes presenting here today via ambulance from her home. Over the past approximately 5 days has developed recurrent nausea and vomiting. Feels that she is dehydrated. Denies any significant diarrhea. Reports she has not been able to eat very much at all but has been trying to hydrate. Reports her tongue feels very dry and she thinks she is dehydrated. Reports developing overnight some pain in the mid abdomen. Follows with Paola Gonzales forward and discussed with them this morning and came in for evaluation. Anxious and states that she feels like she may and she does not want to today. Denies significant chest pain or shortness of breath. Denies falls or trauma. Denies sick contact. States she is try to take her medications but thinks he may have thrown them out. Denies significant cough or cold symptoms may be some headache. PAST MEDICAL HISTORY: As noted above MEDICATIONS: Reviewed home medications SOCIAL HISTORY:lives at home with son PHYSICAL EXAM: GENERAL: alert and oriented in no acute distress on stretcher although slightly anxious and appears Head: normocephalic and atraumatic EYES: No injection, discharge or icterus. NECK: Trachea midline. ENT: Mucous membranes pink and moist. LUNGS: Airway patent. No retractions. Breath sounds clear HEART: Regular rate and rhythm. No chest wall tenderness ABDOMEN: Soft with some mid abdominal tenderness and guarding. Not peritoneal. SKIN: Acyanotic, warm, dry, without rashes EXTREMITIES: Without tenderness with 1+ edema of the bilateral lower extremities. NEUROLOGICAL: No focal deficits. No aphasia. No facial droop or slurred speech. Normal strength and tone in the extremities. Sensation to gross touch normal. Ambulatory. EK bpm normal sinus rhythm. No PVC or PAC. No acute ST segment elevation with some nonspecific inferior T wave inversion. QTc 486. EK beats. Normal sinus rhythm. No PVC or PAC. No acute ST segment elevation or depression with some nonspecific inferior lateral T wave inversions. Compared to previous from earlier similar. CONTINUOUS CARDIAC MONITORING: was ordered and showed a heart rate of 70s to 100s bpm in normal sinus rhythm to sinus tachycardia Patient's laboratory studies and imaging reviewed. Differential includes gastrointestinal, volvulus, constipation, obstruction, pancreatitis, diverticulitis, cholecystitis, appendicitis, infection, dehydration, metabolic abnormality, hypo/hyperglycemia, electrolyte disturbance, anemia, hypoxia, cardiac sources, intracerebral event, toxicologic, neurologic, as well as other pathologies. IMPRESSION/MEDICAL DECISION MAKING: Patient with some GI symptoms now developing abdominal pain. No history of abdominal surgeries reported but question if she could be either constipated or possibly obstructed. States she feels dehydrated we will give some IV fluids. Denies any trauma, falls, or syncope. Denies significant chest pain to me. EKG without significant acute ischemic findings. Troponin was sent. Labs were sent. Given some IV fluid and Zofran she does feel somewhat nauseous. Given her history of significant CKD, noncontrast abdominal scan ordered she does have some mid abdominal tenderness. No significant focal deficits I doubt acute CVA, meningitis or intracranial bleed. Patient does states she has poorly controlled hypertension and again there is some question if she had been able to take her blood pressure medication/keep it down. Blood work here borderline leukocytosis of just 11. No anemia. No significant platelet abnormality noted. Chemistries without significant hyponatremia or hypo or hyperkalemia. Do note a low bicarb of 15 with an anion gap of 25. Baseline CKD is noted. Lactate is normal. No evidence of hepatitis or pancreatitis or other bilirubin on laboratory studies. TSH normal. Do note a mildly elevated high-sensitivity troponin of 27.3 without prior for comparison. May be baseline given her history of CKD but will need trended. Received IV fluids but question given her use of Jardiance if this possibly represents a euglycemic DKA situation and VBG was added on. Urinalysis pending. Chest x-ray per radiology is reassuring. Negative respiratory viral panel. CT abdomen pelvis per radiology report no evidence of bowel obstruction with some constipation noted questioning of artifact versus a possible gastric lesion but no free air noted. Discussed with the patient this finding. Will need outpatient GI follow-up. Does not really explain her symptomatology however likely more gastroenteritis and now DKA from her diabetes medication. Updated patient. Will start on dextrose containing fluids in addition to insulin drip at this time. VBG pending but seems consistent with again DKA. Hospitalist contacted. VBG later returned 7.19, CO2 of 37, O2 less than 20, and a bicarb of 14. Insulin drip being initiated. During this time. Patient began to complain of some chest discomfort and some numbness. Nursing obtained a repeat EKG reviewed without significant changes and the repeat troponin was sent. Patient resting comfortably when I walked by to reevaluate and hospitalist team made aware. No evidence of STEMI on repeat EKG. Some additional Zofran for nausea. DIAGNOSIS: DKA, elevated troponin, nausea and vomiting DISPOSITION: Hospitalist will evaluate Patient was agreeable with this plan. Critical Care I have personally spent 33 minutes of critical care time in the direct management of this patient. This includes bedside care, interpretation of diagnostic studies, and testing, discussion with consultants, patient, and other required patient management activities. These 33 minutes is in excess of all separately billable procedures. Past Med/Surg History Medical History (Updated 11/10/23 @ 11:29 by Helio Elliott M.D.) Type 2 diabetes mellitus Hx of breast cancer (03/31/13) Cough Cervical radiculopathy at C8 Syncope Surgical History H/O hysterectomy with oophorectomy Hx of lumpectomy RT History of hysterectomy History of colonoscopy History of tooth extraction History of cataract surgery History of cardiac cath 2013/NO STENTS Family History Mother Family history of diabetes mellitus Breast cancer Father Family history of diabetes mellitus Atrial fibrillation Cardiac disorder Depression Sister Cardiac disorder Social History Smoking Status: Never smoker Second Hand Exposure: No; Do You Dip or Chew Tobacco: No; Hx Alcohol Use: No Hx Substance Use: No Preferred Language: Vietnamese Communication Ability: Effective Visual Impairment: Partially Limited Hearing Ability: Normal [employer] Required: No Beliefs That Will Affect Care: None Current Living Situation: Family Current Living Situation Comment: LIVES WITH SON Feels Safe at Home: Yes Childhood Exposure to Second-Hand Smoke: Yes caffeine: Yes Dental Care, Regularly: Yes Physical Activity Frequency: Daily Seatbelt Use: always Sunscreen Use: Yes Assistive Devices: Glasses Allergies Allergies Allergy/AdvReac Type Severity Reaction Status Date / Time baclofen Allergy Unknown Confusion Verified 11/10/23 11:48 lamotrigine Allergy Unknown UNKNOWN Verified 11/10/23 11:48 phenytoin Allergy Unknown UNSURE Verified 11/10/23 11:48 fentanyl AdvReac Severe MARKED Verified 11/10/23 11:48 CONFUSION W/ ABSENCE OF SEDATION midazolam AdvReac Severe MARKED Verified 11/10/23 11:48 CONFUSION W/ ABSENCE OF SEDATION Home Meds Home Medications Medication Instructions Recorded Confirmed aspirin 81 mg tablet,delayed 81 mg PO QAM 07/01/18 11/10/23 release (Aspir-) cetirizine 10 mg tablet 10 mg PO BID 05/25/19 11/10/23 lancets 33 gauge [facility] ea 05/25/19 02/10/21 Lancets) ondansetron HCl 4 mg tablet 4 mg PO Q6H PRN Nausea 05/25/19 11/10/23 (Zofran) omeprazole 20 mg capsule,delayed 20 mg PO DAILY PRN Acid Reflux 02/10/21 11/10/23 release amlodipine 10 mg tablet 10 mg PO QAM 11/10/23 11/10/23 calcium carbonate 600 mg calcium 600 mg PO QAM 11/10/23 11/10/23 (1,500 mg) tablet cholecalciferol (vitamin D3) 50 100 mcg PO DAILY 11/10/23 11/10/23 mcg (2,000 unit) tablet empagliflozin 10 mg tablet 10 mg PO QAM 11/10/23 11/10/23 (Jardiance) fluticasone furoate 200 1 inh inhalation QA 11/10/23 11/10/23 mcg-vilanterol 25 mcg/dose inhalation powder (Breo Ellipta) levothyroxine 75 mcg tablet 75 mcg PO QAM 11/10/23 11/10/23 (Synthroid) lorazepam 1 mg tablet 0.5 - 1 mg PO DAILY PRN Anxiety 11/10/23 11/10/23 oxybutynin chloride 10 mg 10 mg PO QAM 11/10/23 11/10/23 tablet,extended release 24 hr semaglutide 0.25 mg or 0.5 mg (2 0.25 mg subcut WK 01/10/24 01/10/24 mg/3 mL) subcutaneous pen injector (Ozempic) sertraline 25 mg tablet 25 mg PO QAM 11/10/23 11/10/23 sodium bicarbonate 650 mg tablet 650 mg PO BID 11/10/23 11/10/23 Previous Rx's Medication Instructions Recorded blood sugar diagnostic (OneTouch #200 ea 08/15/19 Verio test strips) atorvastatin 40 mg tablet 40 mg PO HS #90 tabs 10/16/20 albuterol sulfate 90 mcg/actuation 1 - 2 puff inhalation Q4H PRN 01/20/21 aerosol inhaler Shortness Of Breath #18 grams atenolol 50 mg tablet 50 mg PO QAM #90 tabs 04/08/22 methocarbamol 500 mg tablet 500 mg PO BID PRN neck spasms 30 06/23/23 days #60 tabs topiramate 200 mg tablet 200 mg PO BID 90 days #180 tabs 10/18/23 Results & Data (ED) Vital Signs Vital Signs - 24 hr 11/10/23 09:35 11/10/23 10:29 11/10/23 11:08 Temperature 36.8 C Temperature Source Oral Pulse Rate 74 59 L Pulse Rate [Left Finger] 61 Respiratory Rate 18 20 Respiratory Effort / Characteristics Non-Labored Spontaneous Respiratory Depth Normal Respiratory Pattern Regular Blood Pressure 218/117 H Blood Pressure [Left Arm] 181/109 H Blood Pressure Mean 150 Blood Pressure Mean [Left Arm] 133 Blood Pressure Position [Left Arm] Pulse Oximetry 99 99 Oxygen Delivery Method Room Air Sepsis Recent Fever Within 48 Hours No Sepsis New/Unexplained Change in Mental Status No Sepsis Action Taken by Nursing No Action Required 11/10/23 12:05 11/10/23 13:33 Temperature Temperature Source Pulse Rate Pulse Rate [Left Finger] 106 H 68 Respiratory Rate 20 18 Respiratory Effort / Characteristics Non-Labored Spontaneous Respiratory Depth Normal Respiratory Pattern Blood Pressure Blood Pressure [Left Arm] 222/137 H 193/113 H Blood Pressure Mean Blood Pressure Mean [Left Arm] 165 139 Blood Pressure Position [Left Arm] Lying Sitting Pulse Oximetry 99 100 Oxygen Delivery Method Room Air Sepsis Recent Fever Within 48 Hours Sepsis New/Unexplained Change in Mental Status Sepsis Action Taken by Nursing Laboratory Data 11/10/23 09:50 11/10/23 09:50 Lab Results 11/10/23 11/10/23 11/10/23 Range/Units 09:50 09:55 10:05 WBC 11.03 H (4.8-10.8) K/ul RBC 5.12 (4.20-5.40) M/uL Hgb 16.3 H (12.0-16.0) g/dl Hct 46.7 (37.0-47.0) % MCV 91.2 (80.0-100.0) fL MCH 31.8 (25.0-34.0) pg MCHC 34.9 (32.0-36.0) g/dL RDW Std Deviation 41.5 (36.4-46.3) fL RDW Coeff of Asael 12.5 (11.5-14.5) % Plt Count 265 (130-400) K/uL MPV 11.3 (9.4-12.4) fL Immature Gran % (Auto) 0.3 % Neut % (Auto) 63.7 % Lymph % (Auto) 24.8 % [place] % (Auto) 8.1 % Eos % (Auto) 1.6 % Baso % (Auto) 1.5 % Neut # (Auto) 7.04 H (1.40-6.50) K/uL Lymph # (Auto) 2.73 (1.20-3.40) K/uL [place] # (Auto) 0.89 H (0.11-0.59) K/uL Eos # (Auto) 0.18 (0.00-0.50) K/uL Baso # (Auto) 0.16 (0.00-0.20) K/uL Immature Gran # (Auto) 0.03 (0.01-0.20) K/uL PT 10.9 (9.0-12.0) Seconds INR 1.0 (0.9-1.1) VBG pH (7.36-7.41) VBG pCO2 (38-50) mmHg VBG pO2 mmHg VBG HCO3 mmol/L VBG O2 Saturation % VBG Base Excess mEq/L Sodium 138 (136-145) mmol/L Potassium 4.0 (3.5-5.1) mmol/L Chloride 98 (98-107) mmol/L Carbon Dioxide 15 L (21-32) mmol/L Anion Gap 25 H (3-11) BUN 33 H (6-23) mg/dl Creatinine 2.07 H (0.6-1.2) mg/dl Est Cr Clr Drug Dosing 14.4 ml/min Est GFR ( Amer) 26.7 ml/min Est GFR (Non-Af Amer) 23.0 ml/min BUN/Creatinine Ratio 15.9 (10-20) Glucose 141 H (70-99(Fasting)) mg/dl POC Glucose (70-99) mg/dl Lactate 1.9 (0.4-2.0) mmol/L Calcium 9.7 (8.6-10.3) mg/dl Magnesium 2.2 (1.7-2.4) mg/dl Total Bilirubin 0.4 (0.2-1.0) mg/dl AST 19 (13-39) U/L ALT 13 (7-52) U/L Alkaline Phosphatase 69 (34-104) U/L Total Creatine Kinase 99 (26-192) U/L Troponin I High Sens 27.3 H (0-14) pg/ml Total Protein 7.9 (6.0-8.3) gm/dl Albumin 4.5 (3.4-5.0) gm/dl Globulin 3.4 (2.5-4.0) gm/dl Albumin/Globulin Ratio 1.3 (0.9-2) Lipase 26 (11-82) U/L TSH 3.188 (0.300-4.500) uIu/ml Adenovirus (PCR) Not Detected (NotDetected) B. pertussis DNA (PCR) Not Detected (NotDetected) B.parapertussis DNA PCR Not Detected (NotDetected) C. pneumoniae DNA (PCR) Not Detected (NotDetected) Coronavirus OC43 (PCR) Not Detected (NotDetected) Coronavirus HKU1 (PCR) Not Detected (NotDetected) Coronavirus 229E (PCR) Not Detected (NotDetected) SARS-CoV-2 (PCR) Not Detected (NotDetected) Coronavirus NL63 (PCR) Not Detected (NotDetected) Human Metapneumovir PCR Not Detected (NotDetected) Influenza Type A (PCR) Not Detected (NotDetected) Influenza Type B (PCR) Not Detected (NotDetected) M. pneumoniae (PCR) Not Detected (NotDetected) Parainfluenza 1 (PCR) Not Detected (NotDetected) Parainfluenza 2 (PCR) Not Detected (NotDetected) Parainfluenza 3 (PCR) Not Detected (NotDetected) Parainfluenza 4 (PCR) Not Detected (NotDetected) RSV (PCR) Not Detected (NotDetected) Entero/Rhino (PCR) Not Detected (NotDetected) 11/10/23 11/10/23 11/10/23 Range/Units 11:58 12:06 12:55 WBC (4.8-10.8) K/ul RBC (4.20-5.40) M/uL Hgb (12.0-16.0) g/dl Hct (37.0-47.0) % MCV (80.0-100.0) fL MCH (25.0-34.0) pg MCHC (32.0-36.0) g/dL RDW Std Deviation (36.4-46.3) fL RDW Coeff of Asael (11.5-14.5) % Plt Count (130-400) K/uL MPV (9.4-12.4) fL Immature Gran % (Auto) % Neut % (Auto) % Lymph % (Auto) % [place] % (Auto) % Eos % (Auto) % Baso % (Auto) % Neut # (Auto) (1.40-6.50) K/uL Lymph # (Auto) (1.20-3.40) K/uL [place] # (Auto) (0.11-0.59) K/uL Eos # (Auto) (0.00-0.50) K/uL Baso # (Auto) (0.00-0.20) K/uL Immature Gran # (Auto) (0.01-0.20) K/uL PT (9.0-12.0) Seconds INR (0.9-1.1) VBG pH 7.19 L (7.36-7.41) VBG pCO2 37 L (38-50) mmHg VBG pO2 < 20 mmHg VBG HCO3 14 mmol/L VBG O2 Saturation < 60.0 % VBG Base Excess -13.3 mEq/L Sodium (136-145) mmol/L Potassium (3.5-5.1) mmol/L Chloride (98-107) mmol/L Carbon Dioxide (21-32) mmol/L Anion Gap (3-11) BUN (6-23) mg/dl Creatinine (0.6-1.2) mg/dl Est Cr Clr Drug Dosing ml/min Est GFR ( Amer) ml/min Est GFR (Non-Af Amer) ml/min BUN/Creatinine Ratio (10-20) Glucose (70-99(Fasting)) mg/dl POC Glucose 117 H (70-99) mg/dl Lactate (0.4-2.0) mmol/L Calcium (8.6-10.3) mg/dl Magnesium (1.7-2.4) mg/dl Total Bilirubin (0.2-1.0) mg/dl AST (13-39) U/L ALT (7-52) U/L Alkaline Phosphatase (34-104) U/L Total Creatine Kinase (26-192) U/L Troponin I High Sens 28.4 H (0-14) pg/ml Total Protein (6.0-8.3) gm/dl Albumin (3.4-5.0) gm/dl Globulin (2.5-4.0) gm/dl Albumin/Globulin Ratio (0.9-2) Lipase (11-82) U/L TSH (0.300-4.500) uIu/ml Adenovirus (PCR) (NotDetected) B. pertussis DNA (PCR) (NotDetected) B.parapertussis DNA PCR (NotDetected) C. pneumoniae DNA (PCR) (NotDetected) Coronavirus OC43 (PCR) (NotDetected) Coronavirus HKU1 (PCR) (NotDetected) Coronavirus 229E (PCR) (NotDetected) SARS-CoV-2 (PCR) (NotDetected) Coronavirus NL63 (PCR) (NotDetected) Human Metapneumovir PCR (NotDetected) Influenza Type A (PCR) (NotDetected) Influenza Type B (PCR) (NotDetected) M. pneumoniae (PCR) (NotDetected) Parainfluenza 1 (PCR) (NotDetected) Parainfluenza 2 (PCR) (NotDetected) Parainfluenza 3 (PCR) (NotDetected) Parainfluenza 4 (PCR) (NotDetected) RSV (PCR) (NotDetected) Entero/Rhino (PCR) (NotDetected) Administered Medications Insulin Human Regular 250 (units/ Sodium Chloride) 250 mls @ 2 mls/hr IV .Q24H [facility]; Protocol Stop: 12/10/23 11:14 Last Admin: 11/10/23 13:11 Dose: 2 units/hr, 2 mls/hr Documented By: DIEGO Co-signed By: KATINA Potassium Chloride/Dextrose/Sod Cl (D5w And 1/2nss + 20meq Kcl) 20 meq in 1,000 mls @ 80 mls/hr IV .[id number] [facility] Stop: 12/10/23 11:14 Last Admin: 11/10/23 12:00 Dose: 80 mls/hr Documented By: SULEMAN Discontinued Medications Hydralazine HCl (Hydralazine Hcl 20 Mg/Ml Vial) 10 mg IV NOW STA Stop: 11/10/23 13:09 Last Admin: 11/10/23 13:20 Dose: 10 mg Documented By: DIEGO Sodium Chloride (Nss) 1,000 mls @ 999 mls/hr IV .Q1H1M [facility] Stop: 11/10/23 11:00 Last Infusion: 11/10/23 11:30 Dose: Infused Documented By: Admin: 11/10/23 10:30 Dose: 999 mls/hr Documented By: SULEMAN Miscellaneous (Stat Iv Infusion Titration Per Protocol) 1 each N/A NOW STA Stop: 11/10/23 11:15 Last Admin: 11/10/23 13:11 Dose: Not Given Documented By: DIEGO Ondansetron HCl (Ondansetron Inj 2 Mg/Ml 2 Ml Vial) 4 mg IV NOW STA Stop: 11/10/23 09:48 Last Admin: 11/10/23 11:02 Dose: 4 mg Documented By: SULEMAN Ondansetron HCl (Ondansetron Inj 2 Mg/Ml 2 Ml Vial) Confirm Administered Dose 4 mg .ROUTE .STK-MED ONE Stop: 11/10/23 13:19 Last Admin: 11/10/23 13:20 Dose: 4 mg Documented By: DIEGO Imaging Data Radiologist's Impression: Chest X-Ray 11/10/23 09:46 XR chest 1V portable CLINICAL HISTORY: weakness, abdominal pain COMPARISON STUDY: Chest radiograph August 08, 2019. Chest CT September 24, 2014. FINDINGS: Lung volumes are normal. Lungs are clear. There is no pneumothorax or pleural effusion. Cardiac size is normal. Mediastinal contours are normal. There is no evidence for pulmonary edema. IMPRESSION: No acute cardiopulmonary findings. ACT 112: Negative or not required by law. Electronically signed by: Raj Green M.D. 11/10/2023 10:23 AM Abdomen/Pelvis CT 11/10/23 09:47 CT OF THE ABDOMEN AND PELVIS WITHOUT CONTRAST CLINICAL HISTORY: Abdominal pain, vomiting and constipation. COMPARISON STUDY: CT of the abdomen and pelvis February 24, 2018. TECHNIQUE: Axial images of the abdomen and pelvis were obtained without IV contrast. Images were reviewed in the axial, sagittal, and coronal planes. Automated exposure control was utilized for the study. A dose lowering technique was utilized adhering to the principles of ALARA. FINDINGS: A 5 mm left lower lobe pulmonary nodule is similar to CT of February 24, 2018. This is benign given stability. No pneumatosis, free air or portal venous gas is present. There are no renal, ureteral or bladder calculi. There is no hydronephrosis or hydroureter. Evaluation of the remainder of the abdomen and pelvis is suboptimal on this unenhanced exam. 6 mm lateral segment hepatic lesion is suboptimally assessed on this unenhanced exam but probably reflects a cyst. Spleen, adrenal glands and pancreas are unremarkable. There is no biliary or pancreatic ductal dilatation. No peripancreatic or pericholecystic infiltration is present. Stomach is mildly distended and fluid-filled. There is apparent wall thickening of the gastric cardia shown on axial image 43 of 305. There is no evidence for a bowel obstruction. A moderate amount of stool within the colon is noted. There is no stool within the rectum. There is no lymphadenopathy. No fluid collection is present. There is no ascites. No suspicious lesions within the visualized skeletal structures are present. The appendix is normal. IMPRESSION: 1. No evidence for a bowel obstruction. Moderate amount of stool within the colon. No stool within the rectum. Normal appendix. 2. Apparent wall thickening of the gastric cardia. This is probably artifactual. However, gastritis or an underlying mucosal lesion cannot be excluded. GI consultation for consideration for nonemergent upper endoscopy is recommended. 3. No urinary calculi or hydronephrosis. ACT 112: Positive. There are findings on this exam that require communication between the performing entity and the patient following Patient Test Result Information Act ([place] Act 112) guidelines. Electronically signed by: Raj Green M.D. 11/10/2023 10:58 AM Discharge Plan Visit Data Chief Complaint: Illness Stated Complaint: ILLNESS, HEADACHE, VOMITING ED Provider: Helio Elliott Discharge Problem: DKA (diabetic ketoacidosis), Nausea & vomiting, Weakness Patient Disposition: Being Evaluated by Hospitalist Forms Stand Alone Forms: [facility] Prescriptions Prescriptions: No Action (DME) OneTouch Verio test strips strip See Dose Instructions .ROUTE .MEDSUPPLY Qty: 200 3RF Dose Instruction: As directed Rx Instructions: TEST TWICE DAILY AND PRN--Dx: E11.9 Type 2 Diabetes--testing twice daily and as needed atorvastatin 40 mg tablet 40 mg PO HS Qty: 90 3RF albuterol sulfate 90 mcg/actuation HFA aerosol inhaler 1 - 2 puff INHALATION Q4H PRN (Reason: Shortness Of Breath) Qty: 18 2RF atenolol 50 mg tablet 50 mg PO QAM Qty: 90 0RF methocarbamol 500 mg tablet 500 mg PO BID PRN (Reason: neck spasms) 30 Days Qty: 60 3RF topiramate 200 mg tablet 200 mg PO BID 90 Days Qty: 180 1RF omeprazole 20 mg capsule,delayed release(DR/EC) 20 mg PO DAILY PRN (Reason: Acid Reflux) (DME) lancets [OneTouch Delica Lancets] 33 gauge misc See Dose Instructions .ROUTE .MEDSUPPLY Qty: 100 Rx Instructions: TEST TWICE DAILY. cetirizine 10 mg tablet 10 mg PO BID aspirin [Aspir-81] 81 mg Tablet,Delayed Release (Dr/Ec) 81 mg PO QAM ondansetron HCl [Zofran] 4 mg tablet 4 mg PO Q6H PRN (Reason: Nausea) sodium bicarbonate 650 mg tablet 650 mg PO BID sertraline 25 mg tablet 25 mg PO QAM Jardiance 10 mg tablet 10 mg PO QAM Rx Instructions: qam Ozempic 0.25 mg or 0.5 mg (2 mg/3 mL) pen injector 0.25 mg subcut WK Rx Instructions: Wednesday oxybutynin chloride 10 mg tablet extended release 24hr 10 mg PO QAM Rx Instructions: take 1 tablet by mouth once qam levothyroxine [Synthroid] 75 mcg tablet 75 mcg PO QAM calcium carbonate 600 mg calcium (1,500 mg) tablet 600 mg PO QAM amlodipine 10 mg tablet 10 mg PO QAM lorazepam 1 mg tablet 0.5 - 1 mg PO DAILY PRN (Reason: Anxiety) Rx Instructions: take 1/2 to 1 tablet by mouth daily if needed for anxiety. fluticasone furoate-vilanterol [Breo Ellipta] 200-25 mcg/dose blister with device 1 inh INH QAM Rx Instructions: instead of advair cholecalciferol (vitamin D3) 50 mcg (2,000 unit) Tablet 100 mcg PO DAILY Referrals Referrals: Barbara Holland MD [Physician] - Discharge Problem: DKA (diabetic ketoacidosis) Qualifiers: Diabetes mellitus type: type 2 Diabetes mellitus complication detail: without coma Qualified Code(s): E11.10 - Type 2 diabetes mellitus with ketoacidosis without coma Nausea & vomiting Qualifiers: Vomiting type: unspecified Qualified Code(s): R11.2 - Nausea with vomiting, unspecified
[2023-11-10] MEDS ORDERED: SODIUM CHLORIDE 0.9% 1,000 ML IV SCH (10:00)
[2023-11-10 10:20] LABS: Basophils # (auto) 0.16 K/uL (0.00-0.20); Basophils % (auto) 1.5 %; Eosinophils # (auto) 0.18 K/uL (0.00-0.50); Eosinophils % (auto) 1.6 %; Hematocrit (blood only) 46.7 % (37.0-47.0); Hemoglobin 16.3 g/dl (12.0-16.0); Immature Granulocytes # (auto) 0.03 K/uL (0.01-0.20); Immature Granulocytes % (auto) 0.3 %; Lymphocytes # (auto) 2.73 K/uL (1.20-3.40); Lymphocytes % (auto) 24.8 %; Mean Corpuscular Hemoglobin 31.8 pg (25.0-34.0); Mean Corpuscular Hgb Conc 34.9 g/dL (32.0-36.0); Mean Corpuscular Volume 91.2 fL (80.0-100.0); Mean Platelet Volume 11.3 fL (9.4-12.4); Monocytes # (auto) 0.89 K/uL (0.11-0.59); Monocytes % (auto) 8.1 %; Neutrophils # (auto) 7.04 K/uL (1.40-6.50); Neutrophils % (auto) 63.7 %; Platelet Count 265 K/uL (130-400); RDW Coefficient of Variation 12.5 % (11.5-14.5); RDW Standard Deviation 41.5 fL (36.4-46.3); Red Blood Count 5.12 M/uL (4.20-5.40); White Blood Count 11.03 K/ul (4.8-10.8)
--- NOTE | 2023-11-10 10:24 | XRay Report ---
XR chest 1V portable CLINICAL HISTORY: weakness, abdominal pain COMPARISON STUDY: Chest radiograph August 08, 2019. Chest CT September 24, 2014. FINDINGS: Lung volumes are normal. Lungs are clear. There is no pneumothorax or pleural effusion. Car diac size is normal. Mediastinal contours are normal. There is no evidence for pulmonary edema. IMPRESSION: No acute cardiopulmonary findings. ACT 112: Negative or not required by law. Electronically signed by: Raj Green M.D. 11/10/2023 10:23 AM
[2023-11-10 10:29] LABS: Albumin Globulin Ratio 1.3 (0.9-2); Albumin Level 4.5 gm/dl (3.4-5.0); BUN Creatinine Ratio 15.9 (10-20); Bilirubin,Total 0.4 mg/dl (0.2-1.0); Calcium 9.7 mg/dl (8.6-10.3); Creatinine Clr Calc Pharmacy 14.4 ml/min; Est GFR (African American) 26.7 ml/min; Globulin 3.4 gm/dl (2.5-4.0); Magnesium 2.2 mg/dl (1.7-2.4); Total Protein 7.9 gm/dl (6.0-8.3)
[2023-11-10 10:35] LABS: Troponin I High Sensitivity 27.3 pg/ml (0-14)
[2023-11-10 10:45] LABS: Thyroid Stimulating Hormone 3.188 uIu/ml (0.300-4.500)
--- NOTE | 2023-11-10 10:59 | CT Scan Report ---
CT OF THE ABDOMEN AND PELVIS WITHOUT CONTRAST CLINICAL HISTORY: Abdominal pain, vomiting and constipation. COMPARISON STUDY: CT of the abdomen and pelvis February 24, 2018. TECHNIQUE: Axial images of the abdomen and pelvis were obtained without IV contrast. Images were revi ewed in the axial, sagittal, and coronal planes. Automated exposure control was utilized for the brittany dy. A dose lowering technique was utilized adhering to the principles of ALARA. FINDINGS: A 5 mm left lower lobe pulmonary nodule is similar to CT of February 24, 2018. This is benign given stability. No pneumatosis, free air or portal venous gas is present. There are no renal, ureter al or bladder calculi. There is no hydronephrosis or hydroureter. Evaluation of the remainder of the abdomen and pelvis is suboptimal on this unenhanced exam. 6 mm lateral segment hepatic lesion is subo ptimally assessed on this unenhanced exam but probably reflects a cyst. Spleen, adrenal glands and pa ncreas are unremarkable. There is no biliary or pancreatic ductal dilatation. No peripancreatic or pe richolecystic infiltration is present. Stomach is mildly distended and fluid-filled. There is apparen t wall thickening of the gastric cardia shown on axial image 43 of 305. There is no evidence for a tanya wel obstruction. A moderate amount of stool within the colon is noted. There is no stool within the r ectum. There is no lymphadenopathy. No fluid collection is present. There is no ascites. No suspiciou s lesions within the visualized skeletal structures are present. The appendix is normal. IMPRESSION: 1. No evidence for a bowel obstruction. Moderate amount of stool within the colon. No stool within th e rectum. Normal appendix. 2. Apparent wall thickening of the gastric cardia. This is probably artifactual. However, gastritis o r an underlying mucosal lesion cannot be excluded. GI consultation for consideration for nonemergent upper endoscopy is recommended. 3. No urinary calculi or hydronephrosis. ACT 112: Positive. There are findings on this exam that require communication between the performing entity and the patient following Patient Test Result Information Act ([place] Act 112) guidelines. Electronically signed by: Raj Green M.D. 11/10/2023 10:58 AM
[2023-11-10 11:03] LABS: Adenovirus PCR Not Detected (NotDetected); Bordetella parapertussis PCR Not Detected (NotDetected); Bordetella pertussis PCR Not Detected (NotDetected); Chlamydia pneumoniae PCR Not Detected (NotDetected); Coronavirus 229E PCR Not Detected (NotDetected); Coronavirus CoV-2 (COVID19)PCR Not Detected (NotDetected); Coronavirus HKU1 PCR Not Detected (NotDetected); Coronavirus NL63 PCR Not Detected (NotDetected); Coronavirus OC43PCR Not Detected (NotDetected); Human Metapneumovirus PCR Not Detected (NotDetected); Influenza A PCR Not Detected (NotDetected); Influenza B PCR Not Detected (NotDetected); Mycoplasma pneumoniae PCR Not Detected (NotDetected); Parainfluenza Virus 1 PCR Not Detected (NotDetected); Parainfluenza Virus 2 PCR Not Detected (NotDetected); Parainfluenza Virus 3 PCR Not Detected (NotDetected); Parainfluenza Virus 4 PCR Not Detected (NotDetected); Respiratory Syncytial VirusPCR Not Detected (NotDetected); Rhinovirus/Enterovirus PCR Not Detected (NotDetected)
--- NOTE | 2023-11-10 11:09 | Electrocardiogram Report ---
Test Reason : Blood Pressure : / mmHG Vent. Rate : 074 BPM Atrial Rate : 074 BPM P-R Int : 132 ms QRS Dur : 064 ms QT Int : 438 ms P-R-T Axes : 055 012 081 degrees QTc Int : 486 ms Normal sinus rhythm Possible Old Anterior infarct Nonspecific ST abnormality Inferior leads Abnormal ECG When compared with ECG of 12-JUL-2018 16:21, Borderline Criteria for Anterior infarct is now Present Nonspecific ST abnormality now present Inferior leads Confirmed by Herber Zayas ([id number]) on 11/10/2023 11:08:49 AM Referred By: Confirmed By:Herber Zayas
[2023-11-10] MEDS ORDERED: PHARMACY GLYCEMIC MGMT CONSULT PRN ×2 (11:14→16:15)
[2023-11-10] MEDS ORDERED: STAT IV Infusion **Titration per Protocol STA (11:14)
[2023-11-10] MEDS ORDERED: INSULIN REGULAR 250 UNITS in SODIUM CHLORIDE 0.9% 247.5 ML IV SCH (11:15)
[2023-11-10] MEDS ORDERED: D5W AND 1/2NSS + 20MEQ KCL 20 MEQ/1,000 ML BAG IV SCH ×2 (11:15→18:30)
[2023-11-10 11:41] LABS: Prothrombin Time 10.9 Seconds (9.0-12.0)
--- OUTSIDE RECORDS SUMMARY | 2023-11-10 12:08 | External Medical Summary | Summary of Care ---
Author Name Unknown Organization [facility] Address [address] [place] [address] Phone [phone] Care Team Providers Care Budget Coordinator Name Role Phone Bozena De DO Primary Care Provider + [phone] Reason for Visit * Reason Onset Date Comments Referral 11/05/2023 Encounter Details Date Type Department Care Team (Late st Contact Info) Description 11/05/2023 Telephone Family Practice [address], [place] [address] [place] [phone] Bozena De DO [address] [place] [address] Referral Allergies Active Allergy Reactions Criticality Noted Date Comments Baclofen Neuro complications (Please comment) 08/18/2022 confusion Phenytoin Sodium Extended Itching Low 01/07/2017 Fentanyl 04/24/2022 Lamotrigine 01/07/2017 Midazolam Neuro complications (Please comment) High 08/18/2022 confusion documented as of this encounter (statuses as of 11/09/2023) Medications Medication Sig Dispensed Refills Start Date End Date Status Aspirin 81 MG Tablet Take 1 Tablet by mouth in the morning. 0 Active Zinc 50 MG Oral Tablet Take 1 Tablet by mouth in the morning. 0 Active Acetaminophen 500 MG Oral Tablet Take 2 Tablets by mouth at bedtime. 0 Active Claritin-D 12 Hour 5-120 MG Tablet Extended Release 12 Hour (loratadine-pseudo ephedrine ER 5-120 mg per tab) Take 1 Tablet by mouth in the morning and 1 Tablet before bedtime. 0 Active Afrin Nasal Mumford 0.05 % Nasal Solution (oxymetazoline) Administer 2 Sprays into nostril in the morning and 2 Sprays before bedtime. 0 Active Methocarbamol 500 MG Oral Tablet (Robamol) Take 1 Tablet by mouth 2 times a day as needed. 0 Active Ondansetron HCl 4 MG Oral Tablet Take by mouth 1 Tablet every 8 hours as needed for Nausea. 20 Tablet 0 09/04/2022 Active Calcium 600 MG Oral Tablet Take 1 Tablet (600 mg) by mouth in the morning. 90 Tablet 3 10/13/2022 Active Calcium Carbonate Antacid 500 MG Oral Tablet Chewable Take 1 Tablet by mouth as needed for Heartburn. 0 04/22/2023 Active Vitamin D3 50 MCG (2000 UT) Oral Capsule Take 2 Capsules by mouth in the morning. 0 09/10/2023 Active LORazepam 1 MG Oral Tablet (Ativan)Indication s:Insomnia, unspecified type Use 1/2 a tablet by mouth as needed for sleep. 15 Tablet 0 10/06/2023 Active amLODIPine Besylate 10 MG Oral Tablet (Norvasc) Take 1 Tablet by mouth in the morning. 100 Tablet 3 11/08/2023 Active Albuterol Sulfate HFA 108 (90 Base) MCG/ACT Inhalation Aerosol SolutionIndication s:Moderate persistent asthma without complication Inhale 2 Puffs by mouth every 6 hours as needed (cough/wheeze). 54 g 3 11/08/2023 Active Atenolol 50 MG Oral Tablet (Tenormin) Take 1 Tablet by mouth in the morning. 100 Tablet 3 11/08/2023 Active Atorvastatin Calcium 40 MG Oral Tablet (Lipitor)Indicatio ns:Dyslipidemia, goal LDL below 100 Take 1 Tablet by mouth in the morning. 100 Tablet 3 11/08/2023 Active Fluticasone Furoate-Vilanterol 200-25 MCG/ACT Inhalation Aerosol Powder Breath Activated (BREO ellipta)Indication s:Moderate persistent asthma without complication Inhale 1 Puff by mouth daily. 180 Blister Dosing Unit 3 11/08/2023 Active Empagliflozin 10 MG Oral Tablet (Jardiance)Indicat ions:Type 2 diabetes mellitus with hemoglobin A1c goal of less than 8.0% ([facility]) Take 1 Tablet by mouth in the morning. 100 Tablet 3 11/08/2023 Active Levothyroxine Sodium 75 MCG Oral Tablet (Levoxyl)Indicatio ns:Hypothyroidism Take 1 Tablet by mouth in the morning. As directed.. 100 Tablet 3 11/08/2023 Active oxyBUTYnin Chloride ER 10 MG Oral Tablet Extended Release 24 Hour (Ditropan XL) Take 1 Tablet by mouth in the morning. 100 Tablet 3 11/08/2023 Active Ozempic (0.25 or 0.5 MG/DOSE) 2 MG/3ML Solution Pen-injector (Semaglutide(0.25 or 0.5MG/DOS)) Inject 0.5 mg under the skin once a week. 6 mL 3 11/08/2023 Active Sertraline HCl 25 MG Oral Tablet (Zoloft)Indication s:ROSANA (generalized anxiety disorder),Moderate major depression (HCC) Take 1 Tablet by mouth in the morning. 100 Tablet 1 11/08/2023 Active Topiramate 200 MG Oral Tablet (topAMAX) Take 1 Tablet by mouth in the morning and 1 Tablet before bedtime. 200 Tablet 3 11/08/2023 Active Sodium Bicarbonate 650 MG Oral TabletIndications: Kidney disease, chronic, stage IV (GFR 15-29 ml/min) (HCC) Take 1 Tablet by mouth in the morning and 1 Tablet before bedtime. 200 Tablet 3 11/08/2023 Active topiramate (TOPAMAX) 200 MG Tablet Take 1 Tab by mouth 2 times a day. 60 Tab 5 01/09/2017 4 Discontinue d(Refill) Oxybutynin Chloride ER 10 MG Oral Tablet Extended Release 24 Hour (Ditropan XL) Take 1 Tablet (10 mg) by mouth in the morning. 90 Tablet 3 10/13/2022 4 Discontinue d(Refill) Levothyroxine Sodium 75 MCG Oral Tablet (Levoxyl)Indicatio ns:Hypothyroidism Take 1 Tablet (75 mcg) by mouth in the morning. As directed.. 90 Tablet 3 10/13/2022 4 Discontinue d(Refill) Atorvastatin Calcium 40 MG Oral Tablet (Lipitor)Indicatio ns:Dyslipidemia, goal LDL below 100 Take 1 Tablet (40 mg) by mouth in the morning. 90 Tablet 3 10/13/2022 4 Discontinue d(Refill) amLODIPine Besylate 10 MG Oral Tablet (Norvasc) Take 1 Tablet by mouth in the morning. 90 Tablet 3 10/21/2022 4 Discontinue d(Refill) Breo Ellipta 200-25 MCG/ACT Inhalation Aerosol Powder Breath ActivatedIndicatio ns:Moderate persistent asthma without complication inhale 1 puff by mouth and INTO THE LUNGS every morning 60 Blister Dosing Unit 2 02/08/2023 4 Discontinue d(Refill) Albuterol Sulfate HFA 108 (90 Base) MCG/ACT Inhalation Aerosol SolutionIndication s:Moderate persistent asthma without complication Inhale 2 Puffs by mouth every 6 hours as needed (cough/wheeze). 18 g 3 04/22/2023 4 Discontinue d(Refill) Sodium Bicarbonate 650 MG Oral TabletIndications: Kidney disease, chronic, stage IV (GFR 15-29 ml/min) ([facility]) Take 1 Tablet by mouth in the morning and 1 Tablet before bedtime. 180 Tablet 3 07/13/2023 4 Discontinue d(Refill) Sertraline HCl 25 MG Oral Tablet (Zoloft)Indication s:ROSANA (generalized anxiety disorder),Moderate major depression ([facility]) Take 1 Tablet by mouth in the morning. 30 Tablet 5 08/06/2023 4 Discontinue d(Refill) Empagliflozin 10 MG Oral Tablet (Jardiance)Indicat ions:Type 2 diabetes mellitus with hemoglobin A1c goal of less than 8.0% ([facility]) Take 1 Tablet by mouth in the morning. 30 Tablet 2 09/10/2023 4 Discontinue d(Refill) Ozempic (0.25 or 0.5 MG/DOSE) 2 MG/3ML Solution Pen-injector (Semaglutide(0.25 or 0.5MG/DOS)) Inject 0.5 mg under the skin once a week. After 4 weeks of 0.25mg dose 2 mL 11 10/14/2023 4 Discontinue d(Refill) Atenolol 50 MG Oral Tablet (Tenormin) Take 1 Tablet by mouth in the morning. 90 Tablet 3 10/23/2023 4 Discontinue d(Refill) Hospital, Clinic, or Other Facility Administered Medication Ordered Dose Route Frequency Start Date End Date Status Albuterol Sulfate (Proventil) (2.5 MG/3ML) 0.083% inhalation solution 2.5 mgIndications:Moderate persistent asthma without complication,Chronic cough 2.5 mg NEBULIZER ONCE PRN 09/21/2023 09/20/2024 Active documented as of this encounter (statuses as of 11/09/2023) Active Problems Problem Noted Date Diagnosed Date Hypertensive kidney disease with chronic kidney disease stage IV 02/12/2023 Moderate persistent asthma without complication 11/04/2022 Other chronic sinusitis 10/23/2022 Family history of breast cancer in mother 2021 Benign breast cyst in female, left 08/18/2022 Type 2 diabetes mellitus wit h stage 4 chronic kidney disease, without long-term current use of insulin 08/18/2022 Personal history of malignant neoplasm of breast 04/24/2022 Overview: 2000 Kidney disease, chronic, stage IV (GFR 15-29 ml/ min) 12/04/2021 Seizure disorder 12/03/2021 Overview: dx 2005, follows w/Dr. Sheldon, stable on topamax Well adult exam 12/03/2021 Overview: 10/22 PFTs -decreasedCONCLUSION: Spirogram is within acceptable limits. There is mild decrease in flow at the level of the small airways. Expiratory time is suboptimal and may underestimate any underlying obstruction [facility] in past . Cards-saw Dr Live in past. 08/21 considering sinus surg. Hx breast CA '13? Localization-related symptom atic epilepsy and epileptic syndromes with complex partial seizures, not intractable, without status epilepticus 12/03/2021 Dyslipidemia, goal LDL below 100 01/09/2017 Hypothyroidism 01/09/2017 Type 2 diabetes mellitus wit h hemoglobin A1c goal of less than 8.0% 01/07/2017 HTN, goal below 140/90 01/07/2017 documented as of this encounter (statuses as of 11/09/2023) Immunizations Name Administration Dates Next Due COVID-19 mRNA, LNP-s, No Pre serve, 2-Dose Series ([facility]) 02/05/2021,01/15/2021 COVID-19, LNP-s, No Preserve , Torito-sucrose, Ages 12+ (Pfizer) 05/20/2022 Pneumococcal Conjugate Vacc, 13 Valent (Prevnar) 09/21/2014 Pneumococcal Conjugate Vacci ne, 7 Valent 11/01/2013 Pneumococcal Polysaccharide PPV23 (Pneumovax) 01/07/2017,11/01/2005 Seasonal Influenza Virus Vac cine, Unspecified Formulation 08/24/2016,09/13/2015,08/16/2014,08/16 Seasonal Influenza, Quadriva lent Hd (Fluzone Hd) 07/15/2023,10/09/2022 Seasonal Influenza, Quadriva lent, No Preserve, IM 09/09/2016 Seasonal Influenza, Trivalen t, High Dose, No Preserve, IM 08/28/2019 TDAP (age 10 and older)(Boostrix) 11/04/2022 Zoster Vaccine Recombinant (Shingrix) 04/22/2023 documented as of this encounter Social History Tobacco Use Types Packs/Day Years Used Date Smoking Tobacco: Never Passive Smoke Exposure: Past Smokeless Tobacco: Never Alcohol Use Standard Drinks/Week Comments Not Currently 0 (1 standard drink = 0.6 oz pur e alcohol) rare, at weddings PHQ-2 Answer Date Recorded PHQ Adult Total Score 0 09/21/2023 Hunger Vital Sign Answer Date Recorded Within the past 12 months, y ou worried that your food would run out before you got the money to buy more. Never true 09/21/20 23 Within the past 12 months, t he food you bought just didn't last and you didn't have money to get more. Never true 09/21/2023 Sex and Gender Information Value Date Recorded Sex Assigned at Female 02/24/2023 3:46 PM EDT Gender Identity Female 02/24/2023 3:46 PM EDT Sexual Orientation Straight 02/24/2023 3: 46 PM EDT Job Start Date Occupation Industry Not on file Not on file Not on file documented as of this encounter Miscellaneous Notes * Addendum Note - Dave Costello MD - 11/08/2023 4:28 PM ESTAddended by: DAVE COSTELLO on: 11/08/2023 04:28 PM Modules accepted: Orders * Addendum Note - Vivian Singleton [facility] - 11/08/2023 10:01 AM EST Addended by: VIVIAN SINGLETON on: 11/08/2023 10:01 AM Modules accepted: Orders * Telephone Encounter - Vivian Singleton [facility] - 11/08/2023 9:59 AM EST Forwarding refill for sodium bicarb for mail order to Dr. Costello. Vivian Shrestha, Gilda D, BCACP Clinical Pharmacist [address] [facility] 11/08/2023, 9:59 AM Ph. [phone] * Telephone Encounter - Bozena De DO - 11/08/2023 8:28 AM EST Rx sent. * Telephone Encounter - Vivian Singleton [facility] - 11/05/2023 4:41 PM EST Patient Phone Numbers Spoke to patient and confirmed which prescriptions she needs from mail order. Pended to PCP and confirmed MO information. Vivian Shrestha, Pharm Teresa, BCACP Clinical Pharmacist [address] [facility] 11/05/2023, 4:56 PM Ph. [phone] * Telephone Encounter - Cadence De Paz OSA - 11/05/2023 11:04 AM EST Pt calling to request a refill and to change pharmacy to [facility] Mail order for her meds Please contact her to advise what she should do for this. Pt is asking us to send this script thru mail order Pending Prescriptions: Disp Refills amLODIPine Besylate 10 MG Oral Tablet (No*90 Tab*3 Sig: Take 1 Tablet by mouth in the morning. Last Visit: 10/14/2023 (in office), 10/29/2023 (telemedicine) Next Visit: 01/20/2024 Last date the medication was ordered: 10/13/22 Patient Active Problem List Diagnosis Code Type 2 diabetes mellitus with hemoglobin A1c goal of less than 8.0% ([facility]) E11.9 HTN, goal below 140/90 I10 Dyslipidemia, goal LDL below 100 E78.5 Hypothyroidism E03.9 Seizure disorder ([facility]) G40.909 Well adult exam Z00.00 Localization-related symptomatic epilepsy and epileptic syndromes with complex partial seizures, not intractable, without status epilepticus ([facility]) G40.209 Kidney disease, chronic, stage IV (GFR 15-29 ml/min) ([facility]) N18.4 Personal history of malignant neoplasm of breast Z85.3 Benign breast cyst in female, left N60.02 Type 2 diabetes mellitus with stage 4 chronic kidney disease, without long-term current use of insulin ([facility]) E11.22, N18.4 Other chronic sinusitis J32.8 Family history of breast cancer in mother Z80.3 Moderate persistent asthma without complication J45.40 Hypertensive kidney disease with chronic kidney disease stage IV ([facility]) I12.9, N18.4 Labs: Lab Results Component Value Date/Time CREATININE - [facility] 2.0 (H) 09/09/2023 10:00 AM CREATININE, RANDOM URINE - [facility] 145 11/04/2022 01:06 PM CREATININE-OUTSIDE [facility] 1.92 (A) 06/15/2020 12:00 AM Lab Results Component Value Date/Time POTASSIUM - [facility] 4.2 09/09/2023 10:00 AM POTASSIUM - [facility] 4.6 10/19/2001 10:15 AM POTASSIUM-[facility] 3.5 06/15/2020 12:00 AM Lab Results Component Value Date/Time TSH - [facility] 1.80 04/22/2023 01:04 PM TSH - OUTSIDE LAB 0.712 06/15/2020 12:00 AM Lab Results Component Value Date/Time LDL CHOLESTEROL (CALCULATED) - [facility] 83 11/04/2022 01:06 PM LDL CHOLESTEROL (CALCULATED) - [facility] 100 12/03/2021 03:18 PM No results found for: "ALT" Hemoglobin AIC Results: Lab Results Component Value Date/Time HEMOGLOBIN A1C - [facility] 8.3 (H) 09/09/2023 10:00 AM HEMOGLOBIN A1C - [facility] 7.4 (H) 04/22/2023 02:15 PM HEMOGLOBIN A1C - [facility] 7.1 (H) 11/04/2022 01:06 PM documented in this encounter Plan of Treatment Upcoming Encounters Date Type Department Care Team (Late st Contact Info) Description 11/12/2023 10:00 AM EST Office Visit Family Practice [address] [place] [phone] Bozena De DO [address] [place] [address] 01/20/2024 1:00 PM EDT Office Visit Family Practice [address] [place] [phone] Bozena De DO [address] [place] [address] 08/31/2024 2:00 PM EDT Nurse Only Ancillary [address] [place] [address] College, Nurse Annual Wellness Visit [address] [place] [address] Health Maintenance Due Date Last Done Comments Cologuard 1994 Colonoscopy 1994 Colorectal Cancer Screening 1994 Fecal Occult Blood Test 1994 Sigmoidoscopy 1994 Hepatitis B (1 of 3 - Risk 3-dose series) 2009 Mammogram 06/05/2023 06/05/2022, 05/19/2022 Zoster Vaccines (2 of 2) 06/17/2023 04/22/2023 COVID-19 Vaccine (4 - 2022- season) 2023 05/20/2022, 02/05/2021, 01/15/2021 Hgb 09/05/2023 09/05/2022, 0803/2020, 02/25/2001 Albumin/Creatinine Ratio 11/04/2023 11/04/2022, 02/0 12/2021 GFR 03/09/2024 09/09/2023, 09/0 11/2022, 07/02/2023, Additional history exists HbA1c 03/09/2024 09/09/2023, 04/02, 11/04/2022, Additional history exists Diabetic Foot Exam 04/22/2024 04/22/2023 TSH 04/22/2024 04/22/2023, 05/02, 06/15/2020 Diabetic Eye Exam 06/08/2024 06/08/2023, , 12/24/2021 Nephrology Referral 07/02/2024 07/02/2023 PTH 09/09/2024 09/09/2023, 04/22/2023 Phosphate 09/09/2024 09/09/2023, 09/0 11/2022, 04/22/2023 Depression Screening 09/21/2024 09/21/2023 Lipid Panel 11/04/2027 11/04/2022, 12/03/2021 DTaP,Tdap,and Td Vaccines (2 - Td or Tdap) 11/04/2032 11/04/2022 Pneumococcal Vaccine: 65+ Years Completed 01/07/2017, 09/21/2014, 11/01/2005 Influenza Vaccine (FLU shot) Completed , 10/09/2022, 08/28/2019, Additional history exists GARDASIL-HPV IMMUNIZATION SERIES Aged Out No longer eligible based on patient's age to complete this topic MENINGOCOCCAL (MENACTRA/MENVEO) Aged Out No longer eligible based on patient's age to complete this topic documented as of this encounter Medical Devices Not on filedocumented as of this encounter Visit Diagnoses Diagnosis Moderate persistent asthma without complication Unspecified asthma Dyslipidemia, goal LDL below 100 Other and unspecified hyperlipidemia Type 2 diabetes mellitus with hemoglobin A1c goal of less than 8.0% (HCC) Hypothyroidism Unspecified hypothyroidism ROSANA (generalized anxiety disorder) Generalized anxiety disorder Moderate major depression (HCC) Major depressive disorder, single episode, moderate Kidney disease, chronic, stage IV (GFR 15-29 ml/min) (HCC) Chronic kidney disease, Stage IV (severe) documented in this encounter Care Teams Budget Coordinator Relationship Specialty Start Date End Date Bozena De DO [address] [place] [address] PCP - General Family Medicine 04/22/23 documented as of this encounter
--- OUTSIDE RECORDS SUMMARY | 2023-11-10 12:08 | External Medical Summary | Summary of Care ---
Author Name Unknown Organization [facility] Address [address] [place] [address] Phone [phone] Care Team Providers Care Physical Therapy Assistant Instructor Name Role Phone Bozena De DO Primary Care Provider + [phone] Reason for Visit * Reason Onset Date Comments Referral 11/05/2023 Encounter Details Date Type Department Care Team (Late st Contact Info) Description 11/05/2023 Telephone Family Practice [address], [place] [address] [place] [phone] Bozena De DO [address] [place] [address] Referral Allergies Active Allergy Reactions Criticality Noted Date Comments Baclofen Neuro complications (Please comment) 08/18/2022 confusion Phenytoin Sodium Extended Itching Low 01/07/2017 Fentanyl 04/24/2022 Lamotrigine 01/07/2017 Midazolam Neuro complications (Please comment) High 08/18/2022 confusion documented as of this encounter (statuses as of 11/08/2023) Medications Medication Sig Dispensed Refills Start Date [...] Tablet before bedtime. 0 Active Afrin Nasal [place] 0.05 % Nasal Solution (oxymetazoline) Administer 2 [...] hemoglobin A1c goal of less than 8.0% ([facility]) Take 1 Tablet by mouth in the [...] disease, chronic, stage IV (GFR 15-29 ml/min) ([facility]) Take 1 Tablet by mouth in the morning and 1 Tablet before bedtime. 180 Tablet 3 07/13/2023 4 Discontinue d(Refill) Sertraline HCl 25 MG Oral Tablet (Zoloft)Indication s:ROSANA (generalized anxiety disorder),Moderate major depression ([facility]) Take 1 Tablet by mouth in the morning. 30 Tablet 5 08/06/2023 4 Discontinue d(Refill) Empagliflozin 10 MG Oral Tablet (Jardiance)Indicat ions:Type 2 diabetes mellitus with hemoglobin A1c goal of less than 8.0% ([facility]) Take 1 Tablet by mouth in the [...] as of this encounter (statuses as of 11/08/2023) Active Problems Problem Noted Date Diagnosed Date [...] suboptimal and may underestimate any underlying obstruction [facility] in past . Cards-saw Dr Live in [...] as of this encounter (statuses as of 11/08/2023) Immunizations Name Administration Dates Next Due COVID-19 mRNA, LNP-s, No Pre serve, 2-Dose Series ([employer]) 02/05/2021,01/15/2021 COVID-19, LNP-s, No Preserve , Torito-sucrose, [...] Orders * Addendum Note - Vivian Singleton [facility] - 11/08/2023 10:01 AM EST Addended by: VIVIAN SINGLETON on: 11/08/2023 10:01 AM Modules accepted: Orders * Telephone Encounter - Vivian Singleton [facility] - 11/08/2023 9:59 AM EST Forwarding refill for sodium bicarb for mail order to Dr. Costello. Vivian Shrestha, Gilda D, BCACP Clinical Pharmacist [address] [facility] 11/08/2023, 9:59 AM Ph. [phone] * Telephone Encounter - Bozena De DO - 11/08/2023 8:28 AM EST Rx sent. * Telephone Encounter - Vivian Singleton [facility] - 11/05/2023 4:41 PM EST Patient Phone Numbers Spoke to patient and confirmed which prescriptions she needs from mail order. Pended to PCP and confirmed [place] information. Vivian Shrestha, Pharm Teresa, BCACP Clinical Pharmacist [address] - [facility] 11/05/2023, 4:56 PM Ph. [phone] * Telephone Encounter - Cadence De Paz OSA - 11/05/2023 11:04 AM EST Pt calling to request a refill and to change pharmacy to [facility] Mail order for her meds Please contact [...] hemoglobin A1c goal of less than 8.0% ([facility]) E11.9 HTN, goal below 140/90 I10 Dyslipidemia, goal LDL below 100 E78.5 Hypothyroidism E03.9 Seizure disorder ([facility]) G40.909 Well adult exam Z00.00 Localization-related symptomatic epilepsy and epileptic syndromes with complex partial seizures, not intractable, without status epilepticus ([facility]) G40.209 Kidney disease, chronic, stage IV (GFR 15-29 ml/min) ([facility]) N18.4 Personal history of malignant neoplasm of breast Z85.3 Benign breast cyst in female, left N60.02 Type 2 diabetes mellitus with stage 4 chronic kidney disease, without long-term current use of insulin ([facility]) E11.22, N18.4 Other chronic sinusitis J32.8 Family history of breast cancer in mother Z80.3 Moderate persistent asthma without complication J45.40 Hypertensive kidney disease with chronic kidney disease stage IV ([facility]) I12.9, N18.4 Labs: Lab Results Component Value [...] Care Team (Late st Contact Info) Description 11/09/2023 2:00 PM EST Office Visit Family Practice [address] [place] [address] Bozena De DO [address] [place] [address] 01/20/2024 1:00 PM EDT Office Visit Family Practice [address] [place] [address] Bozena De DO [address] [place] [address] 08/31/2024 2:00 PM EDT Nurse Only Ancillary [address] [place] [address] College, Nurse Annual Wellness Visit [address] [place] [address] Health Maintenance Due Date Last Done Comments [...] (severe) documented in this encounter Care Teams Physical Therapy Assistant Instructor Relationship Specialty Start Date End Date Bozena De DO [address] [place] [address] PCP - General Family Medicine 04/22/23 documented as of this encounter
--- OUTSIDE RECORDS SUMMARY | 2023-11-10 12:09 | External Medical Summary | Summary of Care ---
Author Name Unknown Organization [facility] Address [address] [place] [address] Phone [phone] Care Team Providers Care Tools And Parts Attendant Name Role Phone Bozena De DO Primary Care Provider Reason for Visit * Reason Onset Date Comments Call Back 10/29/2023 Encounter Details Date Type Department Care Team (Late st Contact Info) Description 10/29/2023 Telephone Family Practice 65 [facility] [place] [address] [place] [phone] Bozena De [address] [place] [address] Call Back Allergies Active Allergy Reactions Criticality Noted Date Comments Baclofen Neuro complications (Please comment) 08/18/2022 confusion Phenytoin Sodium Extended Itching Low 01/07/2017 Fentanyl 04/24/2022 Lamotrigine 01/07/2017 Midazolam Neuro complications (Please comment) High 08/18/2022 confusion documented as of this encounter (statuses as of 10/29/2023) Medications Medication Sig Dispensed Refills Start Date End Date Status Aspirin 81 MG Tablet Take 1 Tablet by mouth in the morning. 0 Active topiramate (TOPAMAX) 200 MG Tablet Take 1 Tab by mouth 2 times a day. 60 Tab 5 01/09/2017 Active Zinc 50 MG Oral Tablet Take [...] Tablet before bedtime. 0 Active Afrin Nasal [place] 0.05 % Nasal Solution (oxymetazoline) Administer 2 [...] the morning. 90 Tablet 3 10/13/2022 Active Oxybutynin Chloride ER 10 MG Oral Tablet Extended Release 24 Hour (Ditropan XL) Take 1 Tablet (10 mg) by mouth in the morning. 90 Tablet 3 10/13/2022 Active Levothyroxine Sodium 75 MCG Oral Tablet (Levoxyl)Indicatio ns:Hypothyroidism Take 1 Tablet (75 mcg) by mouth in the morning. As directed.. 90 Tablet 3 10/13/2022 Active Atorvastatin Calcium 40 MG Oral Tablet (Lipitor)Indicatio ns:Dyslipidemia, goal LDL below 100 Take 1 Tablet (40 mg) by mouth in the morning. 90 Tablet 3 10/13/2022 Active amLODIPine Besylate 10 MG Oral Tablet (Norvasc) Take 1 Tablet by mouth in the morning. 90 Tablet 3 10/21/2022 Active Breo Ellipta 200-25 MCG/ACT Inhalation Aerosol Powder Breath ActivatedIndicatio ns:Moderate persistent asthma without complication inhale 1 puff by mouth and INTO THE LUNGS every morning 60 Blister Dosing Unit 2 02/08/2023 Active Additional Information Patient taking differently: 1 Puff Inhalation HS, Reported on 04/22/2023 Calcium Carbonate Antacid 500 MG Oral Tablet Chewable Take 1 Tablet by mouth as needed for Heartburn. 0 04/22/2023 Active Albuterol Sulfate HFA 108 (90 Base) MCG/ACT Inhalation Aerosol SolutionIndication s:Moderate persistent asthma without complication Inhale 2 Puffs by mouth every 6 hours as needed (cough/wheeze). 18 g 3 04/22/2023 Active Sodium Bicarbonate 650 MG Oral TabletIndications: Kidney disease, chronic, stage IV (GFR 15-29 ml/min) ([facility]) Take 1 Tablet by mouth in the morning and 1 Tablet before bedtime. 180 Tablet 3 07/13/2023 Active Sertraline HCl 25 MG Oral Tablet (Zoloft)Indication s:ROSANA (generalized anxiety disorder),Moderate major depression ([facility]) Take 1 Tablet by mouth in the morning. 30 Tablet 5 08/06/2023 Active Additional Information Patient not taking.Reported on 09/21/2023 Vitamin D3 50 MCG (1999 UT) Oral Capsule Take 2 Capsules by mouth in the morning. 0 09/10/2023 Active Empagliflozin 10 MG Oral Tablet (Jardiance)Indicat ions:Type 2 diabetes mellitus with hemoglobin A1c goal of less than 8.0% ([facility]) Take 1 Tablet by mouth in the morning. 30 Tablet 2 09/10/2023 Active LORazepam 1 MG Oral Tablet (Ativan)Indication s:Insomnia, unspecified type Use 1/2 a tablet by mouth as needed for sleep. 15 Tablet 0 10/06/2023 Active Ozempic (0.25 or 0.5 MG/DOSE) 2 MG/3ML Solution Pen-injector (Semaglutide(0.25 or 0.5MG/DOS)) Inject 0.5 mg under the skin once a week. After 4 weeks of 0.25mg dose 2 mL 11 10/14/2023 Active Atenolol 50 MG Oral Tablet (Tenormin) Take 1 Tablet by mouth in the morning. 90 Tablet 3 10/23/2023 Active Hospital, Clinic, or Other Facility Administered Medication Ordered Dose Route Frequency Start Date End Date Status Albuterol Sulfate (Proventil) (2.5 MG/3ML) 0.083% inhalation solution 2.5 mgIndications:Moderate persistent asthma without complication 2.5 mg NEBULIZER ONCE PRN 11/04/2022 11/04/2023 Acti ve Albuterol Sulfate (Proventil) (2.5 MG/3ML) 0.083% inhalation solution 2.5 mgIndications:Moderate persistent asthma without complication,Chronic cough 2.5 mg NEBULIZER ONCE PRN 09/21/2023 09/20/2024 Active documented as of this encounter (statuses as of 10/29/2023) Active Problems Problem Noted Date Diagnosed Date [...] of malignant neoplasm of breast 04/24/2022 Overview: 1999 Kidney disease, chronic, stage IV (GFR 15-29 ml/ min) 12/04/2021 Seizure disorder 12/03/2021 Overview: dx 2005, follows w/Dr. Sheldon stable on topamax Well adult exam 12/03/2021 [...] as of this encounter (statuses as of 10/29/2023) Immunizations Name Administration Dates Next Due COVID-19 mRNA, LNP-s, No Pre serve, 2-Dose Series ([employer]) 02/05/2021,01/15/2021 COVID-19, LNP-s, No Preserve , Torito-sucrose, [...] as of this encounter Miscellaneous Notes * Telephone Encounter - Vivian Yang RPh - 10/29/2023 3:10 PM EST Spoke to patient - see MTM encounter. * Telephone Encounter - Cadence Kebede OSA - 10/29/2023 1:27 PM EST Returning your call documented in this encounter Plan of Treatment Upcoming Encounters Date Type Department Care Team (Late st Contact Info) Description 01/20/2024 1:00 PM EDT Office Visit Family Practice 65 [facility] 293 [place] [phone] Bozena De DO 293 [place] [address] 08/31/2024 2:00 PM EDT Nurse Only Ancillary 65 [facility] [place] [address] [place] [address] College, Nurse Annual Wellness Visit [address] [facility] [address] [place] [address] Health Maintenance Due Date Last Done Comments Cologuard 1994 Colonoscopy 1994 Colorectal Cancer Screening 1994 Fecal Occult Blood Test 1994 Sigmoidoscopy 1994 Hepatitis B (1 of 3 - Risk 3-dose series) 2009 Mammogram 06/05/2023 06/05/2022, 05/19/2022 Zoster Vaccines (2 of 2) 06/17/2023 04/22/2023 COVID-19 Vaccine ( season) 2023 05/20/2022, 02/05/2021, 01/15/2021 Hgb 09/05/2023 09/05/2022, 06/01, 02/25/2001 Albumin/Creatinine Ratio 11/04/2023 11/04/2022, 0212/2021 GFR 03/09/2024 09/09/2023, 0911/2022, 07/02/2023, Additional history exists HbA1c 03/09/2024 09/09/2023, 04/02, 11/04/2022, Additional history exists Diabetic Foot Exam 04/22/2024 04/22/2023 TSH 04/22/2024 04/22/2023, 05/02, 06/15/2020 Diabetic Eye Exam 06/08/2024 06/08/2023, , 12/24/2021 Nephrology Referral 07/02/2024 07/02/2023 PTH 09/09/2024 09/09/2023, 04/22/2023 Phosphate 09/09/2024 09/09/2023, 11/2022, 04/22/2023 Depression Screening 09/21/2024 09/21/2023 Lipid [...] Not on filedocumented as of this encounter Care Teams Tools And Parts Attendant Relationship Specialty Start Date End Date Bozena De DO [address] [place] [address] PCP - General Family Medicine 04/22/23 documented as of this encounter
--- OUTSIDE RECORDS SUMMARY | 2023-11-10 12:09 | External Medical Summary | Summary of Care ---
Author Name Unknown Organization [facility] Address [address] [place] [address] Phone [phone] Care Team Providers Care Industrial Relations Worker Name Role Phone Bozena De DO Primary Care Provider + [phone] Reason for Visit * Reason Onset Date Comments Referral 11/05/2023 Encounter Details Date Type Department Care Team (Late st Contact Info) Description 11/05/2023 Telephone Family Practice [address], [place] [address] [place] [phone] Bozena De DO [address] [place] [address] Referral Allergies Active Allergy Reactions [...] Tablet before bedtime. 0 Active Afrin Nasal [place] 0.05 % Nasal Solution (oxymetazoline) Administer 2 [...] as needed for Heartburn. 0 04/22/2023 Active Sodium Bicarbonate 650 MG Oral TabletIndications: Kidney disease, chronic, stage IV (GFR 15-29 ml/min) ([facility]CC) Take 1 Tablet by mouth in the morning and 1 Tablet before bedtime. 180 Tablet 3 07/13/2023 Active Vitamin D3 50 MCG (2000 UT) [...] A1c goal of less than 8.0% (HCC) Take 1 Tablet by mouth in [...] 18 g 3 04/22/2023 4 Discontinue d(Refill) Sertraline HCl 25 MG Oral Tablet (Zoloft)Indication s:ROSANA (generalized anxiety disorder),Moderate major depression (HCC) Take 1 Tablet by mouth in the morning. 30 Tablet 5 08/06/2023 4 Discontinue d(Refill) Empagliflozin 10 MG Oral Tablet (Jardiance)Indicat ions:Type 2 diabetes mellitus with hemoglobin A1c goal of less than 8.0% (HCC) Take 1 Tablet by mouth in [...] dx 2005, follows w/Dr. Sheldon stable on topSolectria Renewablesx Well adult exam 12/03/2021 Overview: 10/22 PFTs -decreasedCONCLUSION: Spirogram is within acceptable limits. There is mild decrease in flow at the level of the small airways. Expiratory time is suboptimal and may underestimate any underlying obstruction [facility] in past . Cards-saw Dr Live in [...] mRNA, LNP-s, No Pre serve, 2-Dose Series ([employer]) 02/05/2021,01/15/2021 COVID-19, LNP-s, No Preserve , Torito-sucrose, [...] encounter Miscellaneous Notes * Addendum Note - Vivian Singleton RPh - 11/08/2023 10:01 AM EST Addended by: VIVIAN SINGLETON on: 11/08/2023 10:01 AM Modules accepted: Orders * Telephone Encounter - Vivian Singleton RPh - 11/08/2023 9:59 AM EST Forwarding refill for sodium bicarb for mail order to Dr. Rao. Vivian Shrestha, Gilda Moore, [facility] Clinical Pharmacist [address] - [facility] 11/08/2023, 9:59 AM Ph. [phone] * Telephone Encounter - Bozena De DO - 11/08/2023 8:28 AM EST Rx sent. * Telephone Encounter - Vivian Singleton [facility] - 11/05/2023 4:41 PM EST Patient Phone Numbers Spoke to patient and confirmed which prescriptions she needs from mail order. Pended to PCP and confirmed [place] information. Gilda Black, [facility] Clinical Pharmacist [address] - [facility] 11/05/2023, 4:56 PM Ph. [phone] * Telephone Encounter - Cadence De Paz OSA - 11/05/2023 11:04 AM EST Pt calling to request a refill and to change pharmacy to [facility] order for her meds Please contact [...] hemoglobin A1c goal of less than 8.0% ([facility]) E11.9 HTN, goal below 140/90 I10 Dyslipidemia, goal LDL below 100 E78.5 Hypothyroidism E03.9 Seizure disorder ([facility]) G40.909 Well adult exam Z00.00 Localization-related symptomatic epilepsy and epileptic syndromes with complex partial seizures, not intractable, without status epilepticus ([facility]) G40.209 Kidney disease, chronic, stage IV (GFR 15-29 ml/min) ([facility]) N18.4 Personal history of malignant neoplasm of breast Z85.3 Benign breast cyst in female, left N60.02 Type 2 diabetes mellitus with stage 4 chronic kidney disease, without long-term current use of insulin ([facility]) E11.22, N18.4 Other chronic sinusitis J32.8 Family history of breast cancer in mother Z80.3 Moderate persistent asthma without complication J45.40 Hypertensive kidney disease with chronic kidney disease stage IV ([facility]) I12.9, N18.4 Labs: Lab Results Component Value [...] PM EST Office Visit Family Practice 65 [facility] [address] [place] [phone] Bozena De, DO [address] [place] [address] 01/20/2024 1:00 PM EDT Office Visit Family Practice 65 [facility] [address] [place] [phone] Bozena De, DO [address] [place] [address] 08/31/2024 2:00 PM EDT Nurse Only Ancillary 65 [facility] [address] [place] [address] College, Nurse Annual Wellness Visit [address] [place] [address] Health Maintenance Due Date Last Done Comments [...] Ratio 11/04/2023 11/04/2022, 0212/2021 GFR 03/09/2024 09/09/2023, 090 11/2022, 07/02/2023, Additional history exists HbA1c 03/09/2024 09/09/2023, 04/02, 11/04/2022, Additional history exists Diabetic Foot Exam 04/22/2024 04/22/2023 TSH 04/22/2024 04/22/2023, 07/2 , 06/15/2020 Diabetic Eye Exam 06/08/2024 06/08/2023, , [...] (severe) documented in this encounter Care Teams Industrial Relations Worker Relationship Specialty Start Date End Date Bozena De DO [address] [place] [address] PCP - General Family Medicine 04/22/23 documented as of this encounter
--- OUTSIDE RECORDS SUMMARY | 2023-11-10 12:09 | External Medical Summary | Summary of Care ---
Author Name Unknown Organization [facility] Address [address] [place] [address] Phone [phone] Care Team Providers Care Contact Lens Edge Buffer Name Role Phone Bozena De DO Primary Care Provider Reason for Visit * Reason Onset Date Comments Advice 10/08/2023 Headache 10/08 Encounter Details Date Type Department Care Team (Late st Contact Info) Description 10/08/2023 Telephone Family Practice 65 [facility], [place] [address] [place] [phone] Bozena De [address] [place] [address] Advice (Headache 10/08) Allergies Active Allergy Reactions Criticality Noted Date Comments Baclofen Neuro complications (Please comment) 08/18/2022 confusion Phenytoin Sodium Extended Itching Low 01/07/2017 Fentanyl 04/24/2022 Lamotrigine 01/07/2017 Midazolam Neuro complications (Please comment) High 08/18/2022 confusion documented as of this encounter (statuses as of 10/08/2023) Medications Medication Sig Dispensed Refills Start Date [...] Tablet before bedtime. 0 Active Afrin Nasal [place] 0.05 % Nasal Solution (oxymetazoline) Administer 2 [...] as needed for Heartburn. 0 04/22/2023 Active Atenolol 50 MG Oral Tablet (Tenormin) Take 1 Tablet by mouth in the morning. 90 Tablet 3 04/22/2023 Active Albuterol Sulfate HFA 108 (90 Base) MCG/ACT Inhalation Aerosol SolutionIndication s:Moderate persistent asthma without complication Inhale 2 Puffs by mouth every 6 hours as needed (cough/wheeze). 18 g 3 04/22/2023 Active Sodium Bicarbonate 650 MG Oral TabletIndications: Kidney disease, chronic, stage IV (GFR 15-29 ml/min) ([facility]) Take 1 Tablet by mouth in the morning and 1 Tablet before bedtime. 180 Tablet 3 07/13/2023 Active Sertraline HCl 25 MG Oral Tablet (Zoloft)Indication s:ROSANA (generalized anxiety disorder),Moderate major depression ([facility]) Take 1 Tablet by mouth in the morning. 30 Tablet 5 08/06/2023 Active Additional Information Patient not taking.Reported on 09/21/2023 Vitamin D3 50 MCG (1999 UT) Oral Capsule Take 2 Capsules by mouth in the morning. 0 09/10/2023 Active Empagliflozin 10 MG Oral Tablet (Jardiance)Indicat ions:Type 2 diabetes mellitus with hemoglobin A1c goal of less than 8.0% ([facility]) Take 1 Tablet by mouth in the morning. 30 Tablet 2 09/10/2023 Active LORazepam 1 MG Oral Tablet (Ativan)Indication s:Insomnia, unspecified type Use 1/2 a tablet by mouth as needed for sleep. 15 Tablet 0 10/06/2023 Active Hospital, Clinic, or Other Facility Administered [...] as of this encounter (statuses as of 10/08/2023) Active Problems Problem Noted Date Diagnosed Date [...] min) 12/04/2021 Seizure disorder 12/03/2021 Overview: dx 2006, follows w/Dr. Sheldon, stable on topamax Well adult exam 12/03/2021 Overview: 10/22 PFTs -decreasedCONCLUSION: Spirogram is within acceptable limits. There is mild decrease in flow at the level of the small airways. Expiratory time is suboptimal and may underestimate any underlying obstruction [facility] in past . Cards-saw Dr Live in [...] as of this encounter (statuses as of 10/08/2023) Immunizations Name Administration Dates Next Due COVID-19 mRNA, LNP-s, No Pre serve, 2-Dose Series ([employer]) 02/05/2021,01/15/2021 COVID-19, LNP-s, No Preserve , Torito-sucrose, [...] encounter Miscellaneous Notes * Telephone Encounter - Autumn Preciado RN - 10/08/2023 2:50 PM EST Pt returned call-states she has not checked her BP-she said it is downstairs. She will check it andwill let us know if it is elevated. If not she should continue with tylenol up to 3000 mg in 24 hr period. Encouraged to stay hydrated and trying to eat a little. To call with worsening symptoms or if BP is elevated. * Telephone Encounter - Autumn Preciado RN - 10/08/2023 2:42 PM EST Call to pt-no answer-message left to call back at [phone] * Telephone Encounter - Bozena De DO - 10/08/2023 2:01 PM EST Would continue with current regimen. Has she checked her BP to be sure it is not elevated as this has been an issue for her? If BP ok, can use up to 3000mg of tylenol in 24 hr period. * Telephone Encounter - Autumn Preciado RN - 10/08/2023 1:55 PM EST Pt returned call-states had eyes dilated yesterday at eye appt. Got a severe headache afterwards. Eyes no longer dilated. No sensitivity to light but headache continues. Has some nausea because of headache but no vomiting. Has been taking tylenol but not helping. More tolerable when laying down with eyes closed. Is drinking lots of fluids, not eating a lot-encouraged to eat a little so doesn't make h/a worse and to continue drinking fluids. Pt asking if there is anything else she can do to helpwith h/a. Has h/o of migraines but hasn't had one in a long time-this feels similar to those h/a's. * Telephone Encounter - Autumn Preciado RN - 10/08/2023 1:46 PM EST Call to pt-no answer-message left to call back at [phone] * Telephone Encounter - Cadence Kebede OSA - 10/08/2023 10:40 AM EST Got eyes dilated yesterday and it resulted in a massive headaches She can only take tylenol and that is not touching it Would like to know what to do Please call and advise documented in this encounter Plan of Treatment Upcoming Encounters Date Type Department Care Team (Late st Contact Info) Description 10/14/2023 10:00 AM EST Office Visit Family Practice 65 [facility] 293 [place] [phone] College, Pharmacist [address] [place] [address] 10/15/2023 1:00 PM EST PulmDiagnostic Pulmonary Function Lab, [facility] [address] [place], [address] [place] [address] 10/28/2023 2:40 PM EST Office Visit Nephrology, [address] [place] [address] Nathaly Bone MD [address] [place] [address] 01/20/2024 1:00 PM EDT Office Visit Family Practice 65 [facility] 293 [place] [address] Bozena De DO 293 [place] [address] 08/31/2024 2:00 PM EDT Nurse Only Ancillary [address] [place] [address] College, Nurse Annual Wellness Visit [address] [place] [address] Health Maintenance Due Date Last Done Comments Cologuard 1994 Colonoscopy 1994 Colorectal Cancer Screening 1994 Fecal Occult Blood Test 1994 Sigmoidoscopy 1994 Hepatitis B (1 of 3 - Risk 3-dose series) 2009 Mammogram 06/05/2023 06/05/2022, 05/19/2022 Zoster Vaccines (2 of 2) 06/17/2023 04/22/2023 COVID-19 Vaccine (4 - 2023-24 season) 2023 05/20/2022, 02/05/2021, 01/15/2021 Hgb 09/05/2023 09/05/2022, 06/01, 02/25/2001 Albumin/Creatinine Ratio 11/04/2023 11/04/2022, 020 12/2021 GFR 03/09/2024 09/09/2023, 09/0 11/2022, 07/02/2023, Additional history exists HbA1c 03/09/2024 09/09/2023, 04/02, 11/04/2022, Additional history exists Diabetic Foot Exam 04/22/2024 04/22/2023 TSH 04/22/2024 04/22/2023, 05/02, 06/15/2020 Diabetic Eye Exam 06/08/2024 06/08/2023, , 12/24/2021 Nephrology Referral 07/02/2024 07/02/2023 PTH 09/09/2024 09/09/2023, 04/22/2023 Phosphate 09/09/2024 09/09/2023, 090 11/2022, 04/22/2023 Depression Screening 09/21/2024 09/21/2023 Lipid [...] filedocumented as of this encounter Care Teams Contact Lens Edge Buffer Relationship Specialty Start Date End Date Bozena De DO [facility] [place] [address] PCP - General Family Medicine 04/22/23 documented as of this encounter
--- OUTSIDE RECORDS SUMMARY | 2023-11-10 12:09 | External Medical Summary | Summary of Care ---
Author Name Unknown Organization [facility] Address [address] [place] [address] Phone [phone] Care Team Providers Care Business Continuity Strategy Director Name Role Phone Bozena De DO Primary Care Provider Reason for Visit * Reason Onset Date Comments Advice 09/22/202309/22, 09/24, Encounter Details Date Type Department Care Team (Late st Contact Info) Description 09/22/2023 Telephone Family Practice [address], [place] [address] [place] [phone] Bozena De DO [address] [place], [place] [phone] Advice (09/22, 09/24, 09/27 ) Allergies Active Allergy Reactions Criticality Noted Date Comments Baclofen Neuro complications (Please comment) 08/18/2022 confusion Phenytoin Sodium Extended Itching Low 01/07/2017 Fentanyl 04/24/2022 Lamotrigine 01/07/2017 Midazolam Neuro complications (Please comment) High 08/18/2022 confusion documented as of this encounter (statuses as of 09/30/2023) Medications Medication Sig Dispensed Refills Start Date [...] Tablet before bedtime. 0 Active Afrin Nasal [place] 0.05 % Nasal Solution (oxymetazoline) Administer 2 [...] disease, chronic, stage IV (GFR 15-29 ml/min) ([facility]) Take 1 Tablet by mouth in the morning and 1 Tablet before bedtime. 180 Tablet 3 07/13/2023 Active LORazepam 1 MG Oral Tablet (Ativan)Indication s:Insomnia, unspecified type Use 1/2 a tablet by mouth as needed for sleep. 15 Tablet 0 08/06/2023 Active Sertraline HCl 25 MG Oral Tablet (Zoloft)Indication s:ROSANA (generalized anxiety disorder),Moderate major depression ([facility]) Take 1 Tablet by mouth in the morning. 30 Tablet 5 08/06/2023 Active Additional Information Patient not taking.Reported on 09/21/2023 Vitamin D3 50 MCG (1999 UT) Oral Capsule Take 2 Capsules by mouth in the morning. 0 09/10/2023 Active Empagliflozin 10 MG Oral Tablet (Jardiance)Indicat ions:Type 2 diabetes mellitus with hemoglobin A1c goal of less than 8.0% ([facility]) Take 1 Tablet by mouth in the morning. 30 Tablet 2 09/10/2023 Active Hospital, Clinic, or Other Facility Administered [...] as of this encounter (statuses as of 09/30/2023) Active Problems Problem Noted Date Diagnosed Date [...] suboptimal and may underestimate any underlying obstruction [facility] in past . Cards-saw Dr Live in [...] as of this encounter (statuses as of 09/30/2023) Immunizations Name Administration Dates Next Due COVID-19 mRNA, LNP-s, No Pre serve, 2-Dose Series ([employer]) 02/05/2021,01/15/2021 COVID-19, LNP-s, No Preserve , Torito-sucrose, [...] encounter Miscellaneous Notes * Telephone Encounter - Cadence De Paz OSA - 09/30/2023 4:32 PM EST Pt left voicemail requesting Autumn call her back stating she was returning her call. She can be reached at [phone] * Telephone Encounter - Autumn Fofana LPN - 09/28/2023 12:30 PM EST Letter has been sent * Telephone Encounter - Autumn Fofana LPN - 09/28/2023 12:26 PM EST Called, left message for patient to return call. Thank you * Telephone Encounter - Ct Soumya, LPN - 09/27/2023 12:02 PM EST Called, left message for patient to return call. Thank you * Telephone Encounter - Autumn Fofana LPN - 09/24/2023 2:13 PM EST Called, left message for patient to return call. Thank you * Telephone Encounter - Vivian Yang [facility] - 09/22/2023 3:24 PM EST Patient to reestablish with MTM - had previously declined visits but willing to consider GLP1 per Dr. De due to increasing A1c and declining kidney function. Please schedule for inperson visit whenever she is available. Thanks! Vivian * Telephone Encounter - Autumn Fofana LPN - 09/22/2023 11:41 AM EST Called, left message for patient to return call. Also, patient is not scheduled for her follow up in 3 months. Thank you * Telephone Encounter - Bozena De DO - 09/22/2023 11:35 AM EST Please let pt know that Vivian, our pharmacist, will be reaching out to her to start working with her on getting her sugars back down. Vivian, can you schedule at your convenience? documented in this encounter Plan of Treatment Upcoming Encounters Date Type Department Care Team (Late st Contact Info) Description 10/15/2023 1:00 PM EST PulmDiagnostic Pulmonary Function Lab, [facility] [address] [facility] [place] [address] [place], [address] [facility] [place] [address] 10/28/2023 2:40 PM EST Office Visit Nephrology, [facility] [address] [place] [address] Nathaly Bone MD [address] [place] [address] 01/20/2024 1:00 PM EDT Office Visit Family Practice 65 [facility] 293 [place] [address] Bozena De DO [address] [place] [address] 08/31/2024 2:00 PM EDT Nurse Only Ancillary 65 [facility] 293 [place] [address] College, Nurse Annual Wellness Visit [address] [place] [address] Health Maintenance Due Date Last Done Comments Cologuard 1994 Colonoscopy 1994 Colorectal Cancer Screening 1994 Fecal Occult Blood Test 1994 Sigmoidoscopy 1994 Hepatitis B (1 of 3 - Risk 3-dose series) 2009 Mammogram 06/05/2023 06/05/2022, 05/19/2022 Zoster Vaccines (2 of 2) 06/17/2023 04/22/2023 COVID-19 Vaccine ( season) 2023 05/20/2022, 02/05/2021, 01/15/2021 Hgb 09/05/2023 09/05/2022, 06/01, 02/25/2001 Albumin/Creatinine Ratio 11/04/2023 11/04/2022, 02/0 12/2021 [...] filedocumented as of this encounter Care Teams Business Continuity Strategy Director Relationship Specialty Start Date End Date Bozena De DO [address] [place] [address] PCP - General Family Medicine 04/22/23 documented as of this encounter
--- OUTSIDE RECORDS SUMMARY | 2023-11-10 12:09 | External Medical Summary | Summary of Care ---
Author Name Unknown Organization [facility] Address [address] [place] [address] Phone [phone] Care Team Providers Care University Controller Name Role Phone Bozena De DO Primary Care Provider [phone] Reason for Visit * Reason Onset Date Comments Follow Up 08/06/2023 Encounter Details Date Type Department Care Team (Late st Contact Info) Description 08/06/2023 Telephone Family Practice 65 [facility] [place] [address] [place] [phone] Bozena De [address] [place] [address] Follow Up Allergies Active Allergy Reactions Criticality Noted Date Comments Baclofen Neuro complications (Please comment) 08/18/2022 confusion Phenytoin Sodium Extended Itching Low 01/07/2017 Fentanyl 04/24/2022 Lamotrigine 01/07/2017 Midazolam Neuro complications (Please comment) High 08/18/2022 confusion documented as of this encounter (statuses as of 11/05/2023) Medications Medication Sig Dispensed Refills Start Date [...] Tablet before bedtime. 0 Active Afrin Nasal [place] 0.05 % Nasal Solution (oxymetazoline) Administer 2 [...] Additional Information Patient not taking.Reported on 09/21/2023 documented as of this encounter (statuses as of 11/05/2023) Active Problems Problem Noted Date Diagnosed Date [...] suboptimal and may underestimate any underlying obstruction [facility] in past . Cards-saw Dr Live in [...] as of this encounter (statuses as of 11/05/2023) Immunizations Name Administration Dates Next Due COVID-19 mRNA, LNP-s, No Pre serve, 2-Dose Series ([employer]) 02/05/2021,01/15/2021 COVID-19, LNP-s, No Preserve , Torito-sucrose, [...] encounter Miscellaneous Notes * Telephone Encounter - Bozena De DO - 08/06/2023 5:17 PM EDT Emily, Pt just received her BP monitor. Can you please f/u with her regarding her BP and forward numbers to Dr. Rao if elevated as she has been making any necessary changes? She also has questions regarding a renal diet. Pt is also overwhelmed with her illnesses, caring for her son and cleaning her home. If you could provide her with any resources, I would appreciate it! Thanks! documented in this encounter Plan of Treatment Upcoming Encounters Date Type Department Care Team (Late st Contact Info) Description 01/20/2024 1:00 PM EDT Office Visit Family Practice [address] [phone] Bozena De DO [address] [place] [address] 08/31/2024 2:00 PM EDT Nurse Only Ancillary [address] [address] College, Nurse Annual Wellness Visit [address] [address] Health Maintenance Due Date Last Done Comments Cologuard 1994 Colonoscopy 1994 Colorectal Cancer Screening 1994 Fecal Occult Blood Test 1994 Sigmoidoscopy 1994 Hepatitis B (1 of 3 - Risk 3-dose series) 2009 Mammogram 06/05/2023 06/05/2022, 05/19/2022 Zoster Vaccines (2 of 2) 06/17/2023 04/22/2023 COVID-19 Vaccine ( season) 2023 05/20/2022, 02/05/2021, 01/15/2021 Hgb 09/05/2023 09/05/2022, 06/01, 02/25/2001 Albumin/Creatinine Ratio 11/04/2023 11/04/2022, 12/2021 GFR 03/09/2024 09/09/2023, 09/0 11/2022, 07/02/2023, [...] filedocumented as of this encounter Care Teams University Controller Relationship Specialty Start Date End Date Bozena De DO [address] [place] [address] PCP - General Family Medicine 04/22/23 documented as of this encounter
--- OUTSIDE RECORDS SUMMARY | 2023-11-10 12:09 | External Medical Summary | Summary of Care ---
Author Name Unknown Organization [facility] Address [address] [place] [address] Phone [phone] Care Team Providers Care Web Merchant Name Role Phone Bozena De DO Primary Care Provider + [phone] Reason for Visit * Reason Onset Date Comments Referral 11/05/2023 Encounter Details Date Type Department Care Team (Late st Contact Info) Description 11/05/2023 Telephone Family Practice [address], [place] [address] [place] [phone] Bozena De DO [address] [place] [address] Referral Allergies Active Allergy Reactions [...] Tablet before bedtime. 0 Active Afrin Nasal [place] 0.05 % Nasal Solution (oxymetazoline) Administer 2 [...] dx 2005, follows w/Dr. Sheldon stable on topBl[employer] Side Entertainment[employer] Well adult exam 12/03/2021 Overview: 10/22 PFTs -decreasedCONCLUSION: Spirogram is within acceptable limits. There is mild decrease in flow at the level of the small airways. Expiratory time is suboptimal and may underestimate any underlying obstruction [facility] in past . Cards-saw Dr Live in [...] mRNA, LNP-s, No Pre serve, 2-Dose Series ([employer]) 02/05/2021,01/15/2021 COVID-19, LNP-s, No Preserve , Torito-sucrose, [...] Rx sent. * Telephone Encounter - Vivian Yang, [facility] - 11/05/2023 4:41 PM EST Patient Phone Numbers Spoke to patient and confirmed which prescriptions she needs from mail order. Pended to PCP and confirmed [place] information. Vivian Shrestha, Pharm D, BCACP Clinical Pharmacist [address] - [facility] 11/05/2023, 4:56 PM Ph. [phone] * Telephone Encounter - Cadence De Paz COLBY - 11/05/2023 11:04 AM EST Pt calling to request a refill and to change pharmacy to [facility] Mail order for her meds Please contact [...] A1c goal of less than 8.0% ([facility]) E11.9 HTN, goal below 140/90 I10 Dyslipidemia, goal LDL below 100 E78.5 Hypothyroidism E03.9 Seizure disorder ([facility]) G40.909 Well adult exam Z00.00 Localization-related symptomatic epilepsy and epileptic syndromes with complex partial seizures, not intractable, without status epilepticus ([facility]) G40.209 Kidney disease, chronic, stage IV (GFR 15-29 ml/min) ([facility]) N18.4 Personal history of malignant neoplasm of breast Z85.3 Benign breast cyst in female, left N60.02 Type 2 diabetes mellitus with stage 4 chronic kidney disease, without long-term current use of insulin (H[facility]) E11.22, N18.4 Other chronic sinusitis J32.8 Family history of breast cancer in mother Z80.3 Moderate persistent asthma without complication J45.40 Hypertensive kidney disease with chronic kidney disease stage IV ([facility]) I12.9, N18.4 Labs: Lab Results Component Value [...] PM EDT Office Visit Family Practice 65 [facility] 293 [place] [address] Bozena De DO [facility] [address] 08/31/2024 2:00 PM EDT Nurse Only Ancillary 65 [facility] [address] [facility] [address] [facility], Nurse Annual Wellness Visit [address] [place] [address] Health Maintenance Due Date Last Done Comments [...] Ratio 11/04/2023 11/04/2022, 0212/2021 GFR 03/09/2024 09/09/2023, 09/0 11/2022, 07/02/2023, Additional [...] (severe) documented in this encounter Care Teams Web Merchant Relationship Specialty Start Date End Date Bozena De DO 293 [facility] [place] [address] PCP - General Family Medicine 04/22/23 documented as of this encounter
--- OUTSIDE RECORDS SUMMARY | 2023-11-10 12:09 | External Medical Summary | Summary of Care ---
Author Name Unknown Organization [facility] Address [address] [place] [address] Phone [phone] Care Team Providers Care Tool Maker Name Role Phone Bozena De Primary Care Provider [phone] Reason for Visit * Reason Comments Dosage Adjustment In Person (Anticoag Cl inic) Diabetes Follow-Up Encounter Details Date Type Department Care Team (Late st Contact Info) Description 10/14/2023 10:00 AM EST Office Visit Family Practice 65 [facility] 293 [place] [phone] College, Pharmacist [address] [address] Type 2 diabetes mellitus with hemoglobin A1c goal of less than 8.0% ([facility])* Allergies Active Allergy Reactions Criticality Noted Date Comments Baclofen Neuro complications (Please comment) 08/18/2022 confusion Phenytoin Sodium Extended Itching Low 01/07/2017 Fentanyl 04/24/2022 Lamotrigine 01/07/2017 Midazolam Neuro complications (Please comment) High 08/18/2022 confusion documented as of this encounter (statuses as of 10/15/2023) Medications Medication Sig Dispensed Refills Start Date [...] Tablet before bedtime. 0 Active Afrin Nasal [place] 0.05 % Nasal Solution (oxymetazoline) Administer 2 [...] disease, chronic, stage IV (GFR 15-29 ml/min) ([facility]) Take 1 Tablet by mouth in the morning and 1 Tablet before bedtime. 180 Tablet 3 07/13/2023 Active Sertraline HCl 25 MG Oral Tablet (Zoloft)Indication s:ROSANA (generalized anxiety disorder),Moderate major depression ([facility]) Take 1 Tablet by mouth in the morning. 30 Tablet 5 08/06/2023 Active Additional Information Patient not taking.Reported on 09/21/2023 Vitamin D3 50 MCG (1999 UT) Oral Capsule Take 2 Capsules by mouth in the morning. 0 09/10/2023 Active Empagliflozin 10 MG Oral Tablet (Jardiance)Indicat ions:Type 2 diabetes mellitus with hemoglobin A1c goal of less than 8.0% ([facility]) Take 1 Tablet by mouth [...] 0.25mg dose 2 mL 11 10/14/2023 Active Hospital, Clinic, or Other Facility Administered [...] as of this encounter (statuses as of 10/15/2023) Active Problems Problem Noted Date Diagnosed Date [...] any underlying obstruction [facility] in past . Cards-saw Dr Live in [...] as of this encounter (statuses as of 10/15/2023) Immunizations Name Administration Dates Next Due COVID-19 mRNA, LNP-s, No Pre serve, 2-Dose Series ([employer]) 02/05/2021,01/15/2021 COVID-19, LNP-s, No Preserve , Torito-sucrose, [...] on file documented as of this encounter Progress Notes * Vivian Yang, [facility] - 10/14/2023 11:14 AM EST Medication Therapy Disease Management Clinic - Diabetes Management Progress Note Poppy Mars, identified by name and date of , is a 73 year old female being seen for diabetes management/education. Patient presents for return diabetic visit. DIABETES: Current diabetic medications: Jardiance 10mg daily Medication Injection Site: N/A Lifestyle: Diet: Comprehensive Diet Review Meal #1: cheerios with milk skim; water Meal #2: usually skips lunch Meal #3: pizza; chicken and broccoli Snacks: none Beverages: water throughout the day Activity: steps at home - letting dogs in and out and loading wood burner with wood. Walking dogs not possible. Glucose Review/SMBG: Readings per patient memory/recall: Patient is currently testing 0-1 times a day - 130 in AM Hypoglycemia: Does your blood sugar go below 70 mg/dL? No Hyperglycemia symptoms present: none Recent Labs Units 09/09/23 1000 04/22/23 1415 11/04/22 1306 HEMOGLOBIN A1C - [facility] % 8.3* 7.4* 7.1* Recent Labs Units 09/09/23 1000 07/02/23 1602 04/22/23 1304 ESTIMATED GLOMERULAR FILTRATION RATE - [facility] mL/min 27* 27* 29* EGFR-OUTSIDE LAB -- 19* -- CREATININE - [facility] mg/dL 2.0* 1.9* 1.8* HYPERTENSION: Patient on ACEi/ARB: no, contraindicated with ckd BP Readings from Last 3 Encounters: 09/21/23 132/72 09/09/23 148/74 08/31/23 140/72 Blood pressure at goal: yes HYPERLIPIDEMIA: Patient is taking moderate or high intensity statin: yes HEALTH MAINTENANCE REVIEW: Health Maintenance Due Topic Date Due Colorectal Cancer Screening Never done Hepatitis B (1 of 3 - Risk 3-dose series) Never done Mammogram 06/05/2023 Zoster Vaccines (2 of 2) 06/17/2023 COVID-19 Vaccine ( season) 2023 Hgb 09/05/2023 Albumin/Creatinine Ratio 11/04/2023 ASSESSMENT & PLAN: ICD-10-CM 1. Type 2 diabetes mellitus with hemoglobin A1c goal of less than 8.0% (HCC) E11.9 BG Readings - Blood sugars not available. A1c not at goal. Medications - Reviewed current regimen, patient is adherent to regimen. Discussed options with patient - she reports she had been on a shot previously and tolerated it. We have limited options with her kidney function, but GLP1 would provide good glucose benefit and cardiac. Taught patient how to use Ozempic pen. Reviewed with patient individual steps to prepare and use Ozempic: wash hands; ensure liquid is clear and colorless; remove protective seal from pen needle, screw needle onto pen, remove both outer and inner needle caps; prime pen by dialing to flow check symbol and checking for drops (first use only); dial pen to appropriate dose; inject into indicated injection site; press and hold dose button until dial reads 0; count to 6; remove needle from skin; dispose of pen needle appropriately. Pen can be stored at room temperature up to 56 days. Patient verbalized understanding and displayed successful technique. Diet, Exercise, Lifestyle - No significant lifestyle changes since last visit. Discussed with patient. Patient is agreeable to SMBG 2 time(s) daily. Patient aware to contact clinic if any hypoglycemia before next visit. MEDICATION CHANGES: yes, see below; preferred pharmacy: [facility] [place] [facility] Medications: Jardiance 10mg daily START Ozempic 0.25mg weekly for 4 weeks, then 0.5mg weekly thereafter HEALTH MAINTENANCE INTERVENTIONS: Labs: Up to Date Immunizations: Up to Date Foot Exam: Up to Date Eye Exam: Up to Date Annual Wellness Visit: Up to Date FOLLOW UP: Return to clinic in 2 weeks by phone to see how its going 10/29/2023 Vivian Galss [facility] Clinical Pharmacist - Barrel Assembler Helper Medication Therapy Management Clinic 10/14/2023, 11:14 AM documented in this encounter Plan of Treatment Upcoming Encounters Date Type Department Care Team (Late st Contact Info) Description 10/28/2023 2:40 PM EST Office Visit Nephrology, [address] [place] [address] Nathaly Bone MD [address] [place] [address] [place] [address] 10/29/2023 11:30 AM EST Telemedicine Family Practice [facility] [phone] College, Pharmacist [address] [address] 01/20/2024 1:00 PM EDT Office Visit Family Practice [address] [place] [address] Bozena De, 293 [place] [address] 08/31/2024 2:00 PM EDT Nurse Only Ancillary [address] [place] 293 [place] [address] College, Nurse Annual Wellness Visit [address] [facility] 293 [place] [address] Health Maintenance Due Date Last Done Comments [...] as of this encounter Visit Diagnoses Diagnosis Type 2 diabetes mellitus with hemoglobin A1c goal of less than 8.0% ([facility])- Primary documented in this encounter Care Teams Tool Maker Relationship Specialty Start Date End Date Bozena De DO 293 [place] [address] PCP - General Family Medicine 04/22/23 documented as of this encounter
--- OUTSIDE RECORDS SUMMARY | 2023-11-10 12:09 | External Medical Summary | Summary of Care ---
Author Name Unknown Organization [facility] Address [address] [place] [address] Phone [phone] Care Team Providers Care Maintenance Inspector Name Role Phone Bozena De DO Primary Care Provider Reason for Visit * Reason Onset Date Comments Medication Refill 10/23/2023 Encounter Details Date Type Department Care Team (Late st Contact Info) Description 10/23/2023 Refill Family Practice [address] [place] [address] [address] [place] [address] Frank Anderson MD [address] [place] [id number] Allergies Active Allergy Reactions Criticality Noted Date Comments Baclofen Neuro complications (Please comment) 08/18/2022 confusion Phenytoin Sodium Extended Itching Low 01/07/2017 Fentanyl 04/24/2022 Lamotrigine 01/07/2017 Midazolam Neuro complications (Please comment) High 08/18/2022 confusion documented as of this encounter (statuses as of 10/23/2023) Medications Medication Sig Dispensed Refills Start Date [...] 5-120 MG Tablet Extended Release 12 Hour (loratadine-pseud oephedrine ER 5-120 mg per tab) Take 1 Tablet by mouth in the morning and 1 Tablet before bedtime. 0 Active Afrin Nasal [place] 0.05 % Nasal Solution (oxymetazoline) Administer 2 [...] Active Levothyroxine Sodium 75 MCG Oral Tablet (Levoxyl)Indicati ons:Hypothyroidis m Take 1 Tablet (75 mcg) by mouth in the morning. As directed.. 90 Tablet 3 10/13/2022 Active Atorvastatin Calcium 40 MG Oral Tablet (Lipitor)Indicati ons:Dyslipidemia, goal LDL below 100 Take 1 Tablet (40 mg) by mouth in the morning. 90 Tablet 3 10/13/2022 Active amLODIPine Besylate 10 MG Oral Tablet (Norvasc) Take 1 Tablet by mouth in the morning. 90 Tablet 3 10/21/2022 Active Breo Ellipta 200-25 MCG/ACT Inhalation Aerosol Powder Breath ActivatedIndicati ons:Moderate persistent asthma without complication inhale 1 puff by mouth and INTO THE LUNGS every morning 60 Blister Dosing Unit 2 02/08/2023 Active Additional Information Patient taking differently: 1 Puff Inhalation HS, Reported on 04/22/2023 Calcium Carbonate Antacid 500 MG Oral Tablet Chewable Take 1 Tablet by mouth as needed for Heartburn. 0 04/22/2023 Active Albuterol Sulfate HFA 108 (90 Base) MCG/ACT Inhalation Aerosol SolutionIndicatio ns:Moderate persistent asthma without complication Inhale 2 Puffs by mouth every 6 hours as needed (cough/wheeze). 18 g 3 04/22/2023 Active Sodium Bicarbonate 650 MG Oral TabletIndications :Kidney disease, chronic, stage IV (GFR 15-29 ml/min) ([facility]) Take 1 Tablet by mouth in the morning and 1 Tablet before bedtime. 180 Tablet 3 07/13/2023 Active Sertraline HCl 25 MG Oral Tablet (Zoloft)Indicatio ns:ROSANA (generalized anxiety disorder),Moderat e major depression ([facility]) Take 1 Tablet by mouth in the morning. 30 Tablet 5 08/06/2023 Active Additional Information Patient not taking.Reported on 09/21/2023 Vitamin D3 50 MCG (1999 UT) Oral Capsule Take 2 Capsules by mouth in the morning. 0 09/10/2023 Active Empagliflozin 10 MG Oral Tablet (Jardiance)Indica tions:Type 2 diabetes mellitus with hemoglobin A1c goal of less than 8.0% ([facility]) Take 1 Tablet by mouth in the morning. 30 Tablet 2 09/10/2023 Active LORazepam 1 MG Oral Tablet (Ativan)Indicatio ns:Insomnia, unspecified type Use 1/2 a tablet by [...] the morning. 90 Tablet 3 10/23/2023 Active Atenolol 50 MG Oral Tablet (Tenormin) Take 1 Tablet by mouth in the morning. 90 Tablet 3 04/22/2023 3 Discontinue d(Refill) Hospital, Clinic, or Other Facility [...] as of this encounter (statuses as of 10/23/2023) Active Problems Problem Noted Date Diagnosed Date [...] dx 2005, follows w/Dr. Sheldon, stable on [employer] Well adult exam 12/03/2021 Overview: 10/22 PFTs -decreasedCONCLUSION: Spirogram is within acceptable limits. There is mild decrease in flow at the level of the small airways. Expiratory time is suboptimal and may underestimate any underlying obstruction [facility] in past . Cards-saw Dr Live in [...] as of this encounter (statuses as of 10/23/2023) Immunizations Name Administration Dates Next Due COVID-19 [...] encounter Miscellaneous Notes * Telephone Encounter - Frank Anderson MD - 10/23/2023 8:35 AM EST Atenolol refill sent documented in this encounter Plan of Treatment Upcoming Encounters Date Type Department Care Team (Late st Contact Info) Description 10/28/2023 2:40 PM EST Office Visit Nephrology, [place] 200 [place] [address] Nathaly Bone MD [address] [place] [address] 10/29/2023 11:30 AM EST Telemedicine Family Practice 65 [facility] 293 [place] [phone] College, Pharmacist [address] [address] 01/20/2024 1:00 PM EDT Office Visit Family Practice 65 [facility] 293 [place] [phone] Bozena De, DO [address] [place] [address] 08/31/2024 2:00 PM EDT Nurse Only Ancillary 65 [facility] 293 [place] [address] [place], Nurse Annual Wellness Visit [address] [place] [address] Health Maintenance Due Date Last Done Comments [...] 11/04/2023 11/04/2022, 02/0 12/2021 GFR 03/09/2024 09/09/2023, 11/2022, 07/02/2023, Additional history exists HbA1c 03/09/2024 09/09/2023, 04/02, 11/04/2022, Additional history exists Diabetic Foot Exam 04/22/2024 04/22/2023 TSH 04/22/2024 04/22/2023, /, 06/15/2020 Diabetic Eye Exam 06/08/2024 06/08/2023, , [...] filedocumented as of this encounter Care Teams Maintenance Inspector Relationship Specialty Start Date End Date Bozena De DO 293 [place] [address] PCP - General Family Medicine 04/22/23 documented as of this encounter
--- OUTSIDE RECORDS SUMMARY | 2023-11-10 12:09 | External Medical Summary | Summary of Care ---
Author Name Unknown Organization [facility] Address [address] [place] [address] Phone [phone] Care Team Providers Care Relocation Counselor Name Role Phone GailBozena haas Primary Care Provider [phone] Reason for Visit * Reason Comments Dosage Adjustment Via Phone (anticoag Cl inic) Diabetes Follow-Up Encounter Details Date Type Department Care Team (Late st Contact Info) Description 10/29/2023 11:30 AM EST Telemedicine Family Practice 65 [facility] 293 [place] [address] College, Pharmacist [address] [address] Type 2 diabetes mellitus with hemoglobin A1c goal of less than 8.0% ([facility])* Allergies Active Allergy Reactions Criticality Noted Date [...] Tablet before bedtime. 0 Active Afrin Nasal [place] 0.05 % Nasal Solution (oxymetazoline) Administer 2 [...] stage IV (GFR 15-29 ml/min) ([facility]) Take 1 Tablet by mouth in the morning and 1 Tablet before bedtime. 180 Tablet 3 07/13/2023 Active Sertraline HCl 25 MG Oral Tablet (Zoloft)Indication s:ROSANA (generalized anxiety disorder),Moderate major depression ([facility]) Take 1 Tablet by mouth in the morning. 30 Tablet 5 08/06/2023 Active Additional Information Patient not taking.Reported on 09/21/2023 Vitamin D3 50 MCG (1999 MS) Oral Capsule Take 2 Capsules by mouth in the morning. 0 09/10/2023 Active Empagliflozin 10 MG Oral Tablet (Jardiance)Indicat ions:Type 2 diabetes mellitus with hemoglobin A1c goal of less than 8.0% ([facility]) Take 1 Tablet by mouth in the [...] suboptimal and may underestimate any underlying obstruction [facility] in past . Cards-saw Dr Live [...] mRNA, LNP-s, No Pre serve, 2-Dose Series ([employer]) 02/05/2021,01/15/2021 COVID-19, LNP-s, No Preserve , Torito-sucrose, [...] this encounter Progress Notes * Vivian Yang, [facility] - 10/29/2023 11:32 AM EST Diabetes telephone follow - up 10/29/2023 Patient Phone Numbers - [facility] 11:34am - spoke to patient 3:00 PM - Reason for contacting patient: Patient tried to give her Ozempic last Wednesday. She isn't sure if she dialed it or not before giving the injection. Has since read over the package insert and is more confident of where it went wrong. Therapy Management Assessment/Plan: 1) Diabetes: Patient will try to give this Wednesday's dose on her own and if she's confused, she willcall us Wednesday and potentially try to give dose when she's here. Jardiance 10mg daily START Ozempic 0.25mg weekly for 4 weeks, then 0.5mg weekly thereafter Follow up in 1 month or sooner with outreach from patient. Vivian Glass [facility], Pharm D Clinical Pharmacist Medication Therapy Management Clinic 10/29/2023, 2:59 PM documented in this encounter Plan of Treatment Upcoming Encounters Date Type Department Care Team (Late st Contact Info) Description 01/20/2024 1:00 PM EDT Office Visit Family Practice [address] [address] Bozena De [address] [place] [address] 08/31/2024 2:00 PM EDT Nurse Only Ancillary [address] [address] [place], Nurse Annual Wellness Visit [address] [address] Health Maintenance Due Date Last Done Comments [...] 11/04/2023 11/04/2022, 020 12/2021 GFR 03/09/2024 09/09/2023, 090 11/2022, 07/02/2023, Additional [...] hemoglobin A1c goal of less than 8.0% (HCC)- Primary documented in this encounter Care Teams Relocation Counselor Relationship Specialty Start Date End Date Bozena De DO 293 [place] [address] PCP - General Family Medicine 04/22/23 documented as of this encounter
--- OUTSIDE RECORDS SUMMARY | 2023-11-10 12:09 | External Medical Summary | Summary of Care ---
Author Name Unknown Organization [facility] Address [address] [place] [address] Phone [phone] Care Team Providers Care Manager Of Development Name Role Phone Bozena De DO Primary Care Provider [phone] Reason for Visit * Reason Onset Date Comments Advice 09/22/202309/22, 09/24, Encounter Details Date Type Department Care Team (Late st Contact Info) Description 09/22/2023 Telephone Family Practice [address] [place] [address] [place] [phone] Bozena De DO [address] [place], [place] [phone] Advice (09/22, 09/24, 09/27 ) Allergies Active Allergy Reactions Criticality Noted Date Comments Baclofen Neuro complications (Please comment) 08/18/2022 confusion Phenytoin Sodium Extended Itching Low 01/07/2017 Fentanyl 04/24/2022 Lamotrigine 01/07/2017 Midazolam Neuro complications (Please comment) High 08/18/2022 confusion documented as of this encounter (statuses as of 10/01/2023) Medications Medication Sig Dispensed Refills Start Date [...] Tablet before bedtime. 0 Active Afrin Nasal [place] 0.05 % Nasal Solution (oxymetazoline) Administer 2 [...] chronic, stage IV (GFR 15-29 ml/min) ([facility]) Take 1 Tablet by mouth in the morning and 1 Tablet before bedtime. 180 Tablet 3 07/13/2023 Active LORazepam 1 MG Oral Tablet (Ativan)Indication s:Insomnia, unspecified type Use 1/2 a tablet by mouth as needed for sleep. 15 Tablet 0 08/06/2023 Active Sertraline HCl 25 MG Oral Tablet (Zoloft)Indication s:ROSANA (generalized anxiety disorder),Moderate major depression ([facility]) Take 1 Tablet by mouth in the morning. 30 Tablet 5 08/06/2023 Active Additional Information Patient not taking.Reported on 09/21/2023 Vitamin D3 50 MCG (1999 UT) Oral Capsule Take 2 Capsules by mouth in the morning. 0 09/10/2023 Active Empagliflozin 10 MG Oral Tablet (Jardiance)Indicat ions:Type 2 diabetes mellitus with hemoglobin A1c goal of less than 8.0% ([facility]) Take 1 Tablet by mouth [...] as of this encounter (statuses as of 10/01/2023) Active Problems Problem Noted Date Diagnosed Date [...] suboptimal and may underestimate any underlying obstruction [facility] in past . Cards-saw Dr [...] as of this encounter (statuses as of 10/01/2023) Immunizations Name Administration Dates Next Due COVID-19 mRNA, LNP-s, No Pre serve, 2-Dose Series ([employer]) 02/05/2021,01/15/2021 COVID-19, LNP-s, No Preserve , Torito-sucrose, [...] Miscellaneous Notes * Telephone Encounter - Autumn Fofana LPN - 10/01/2023 4:44 PM EST Please call and schedule with MTM, in person Thank you * Telephone Encounter - Cadence De Paz OSA - 09/30/2023 4:32 PM EST Pt left voicemail requesting Autumn call her back stating she was returning her call. She can be reached at [phone] * Telephone Encounter - Autumn Fofana LPN - 09/28/2023 12:30 PM EST Letter has been sent * Telephone Encounter - Autumn Fofana LPN - 09/28/2023 12:26 PM EST Called, left message for patient to return call. Thank you * Telephone Encounter - Autumn Fofana LPN - 09/27/2023 12:02 PM EST Called, left message for patient to return call. Thank you * Telephone Encounter - Autumn Fofana LPN - 09/24/2023 2:13 PM EST Called, left message for patient to return call. Thank you * Telephone Encounter - Vivian Yang RPh - 09/22/2023 3:24 PM EST Patient to [...] 1:00 PM EST PulmDiagnostic Pulmonary Function Lab, [facility] [address] [facility] [address] [place] [facility] [address] 10/28/2023 2:40 PM EST Office Visit Nephrology, [facility] 200 [place] [address] Nathaly Bone MD 400 [place] [address] 01/20/2024 1:00 PM EDT Office Visit Family Practice 65 [facility] 293 [place] [address] Bozena De DO [address] [place] [address] 08/31/2024 2:00 PM EDT Nurse Only Ancillary 65 [facility] 293 [place] [address] College, Nurse Annual Wellness Visit [address] [address] Health Maintenance Due Date Last Done Comments [...] PTH 09/09/2024 09/09/2023, 04/22/2023 Phosphate 09/09/2024 09/09/2023, 0911/2022, 04/22/2023 Depression Screening 09/21/2024 09/21/2023 Lipid Panel [...] filedocumented as of this encounter Care Teams Manager Of Development Relationship Specialty Start Date End Date Bozena De DO [address] [place] [address] PCP - General Family Medicine 04/22/23 documented as of this encounter
--- OUTSIDE RECORDS SUMMARY | 2023-11-10 12:09 | External Medical Summary | Summary of Care ---
Author Name Unknown Organization [facility] Address [address] [place] [address] Phone [phone] Care Team Providers Care Charter Coach Driver Name Role Phone Bozena De Primary Care Provider Reason for Visit * Reason Comments Dosage Adjustment In Person (Anticoag Cl inic) Diabetes Follow-Up Encounter Details Date Type Department Care Team (Late st Contact Info) Description 10/14/2023 10:00 AM EST Office Visit Family Practice 65 [facility] [address] [place] [phone] College, Pharmacist [address] [address] Type 2 diabetes mellitus with hemoglobin A1c goal of less than 8.0% ([facility])* Allergies Active Allergy Reactions Criticality Noted Date [...] Tablet before bedtime. 0 Active Afrin Nasal [place] 0.05 % Nasal Solution (oxymetazoline) Administer 2 [...] and may underestimate any underlying obstruction [facility] in past . Cards-saw Dr Live in [...] mRNA, LNP-s, No Pre serve, 2-Dose Series ([employer]) 02/05/2021,01/15/2021 COVID-19, LNP-s, No Preserve , Torito-sucrose, [...] of this encounter Progress Notes * Vivian aYng, [facility] - 10/14/2023 11:14 AM EST Medication Therapy [...] yes, see below; preferred pharmacy: [facility] [place] Diabetic Medications: Jardiance 10mg daily START Ozempic 0.25mg weekly for 4 weeks, then 0.5mg weekly thereafter HEALTH MAINTENANCE INTERVENTIONS: Labs: Up to Date Immunizations: Up to Date Foot Exam: Up to Date Eye Exam: Up to Date Annual Wellness Visit: Up to Date FOLLOW UP: Return to clinic in 2 weeks by phone to see how its going 10/29/2023 Vivian Glass [facility] Clinical Pharmacist - [employer] Medication Therapy [facility] 10/14/2023, 11:14 AM documented in this encounter Plan of Treatment Upcoming Encounters Date Type Department Care Team (Late st Contact Info) Description 10/28/2023 2:40 PM EST Office Visit Nephrology, [address] [place] [address] Nathaly Bone MD [address] [place] [address] [place] [address] 10/29/2023 11:30 AM EST Telemedicine Family Practice [facility] [phone] College, Pharmacist [address] [address] 01/20/2024 1:00 PM EDT Office Visit Family Practice [address] [place] [address] Bozena De, 293 [place] [address] 08/31/2024 2:00 PM EDT Nurse Only Ancillary [address] [place] 293 [place] [address] College, Nurse Annual Wellness Visit [address] [facility] 293 [place] [address] Health Maintenance Due Date Last Done Comments [...] of less than 8.0% ([facility])- Primary documented in this encounter Care Teams Charter Coach Driver Relationship Specialty Start Date End Date Bozena De DO 293 [place] [address] PCP - General Family Medicine 04/22/23 documented as of this encounter
--- OUTSIDE RECORDS SUMMARY | 2023-11-10 12:09 | External Medical Summary | Summary of Care ---
Author Name Unknown Organization [facility] Address [address] [place] [address] Phone [phone] Care Team Providers Care Licensed Physical Therapy Assistant Name Role Phone Bozena Corral DO Primary Care Provider [phone] Reason for Visit * Reason Onset Date Comments Medication Refill 10/05/2023 Encounter Details Date Type Department Care Team (Late st Contact Info) Description 10/05/2023 Refill Family Practice [address] [place] [address] [place] [phone] Bozena Corral 293 [place] [address] Insomnia, unspecified type Allergies Active Allergy Reactions Criticality Noted Date Comments Baclofen Neuro complications (Please comment) 08/18/2022 confusion Phenytoin Sodium Extended Itching Low 01/07/2017 Fentanyl 04/24/2022 Lamotrigine 01/07/2017 Midazolam Neuro complications (Please comment) High 08/18/2022 confusion documented as of this encounter (statuses as of 10/06/2023) Medications Medication Sig Dispensed Refills Start Date [...] Tablet before bedtime. 0 Active Afrin Nasal [place] 0.05 % Nasal Solution (oxymetazoline) Administer 2 [...] chronic, stage IV (GFR 15-29 ml/min) ([facility]) Take 1 Tablet by mouth in the morning and 1 Tablet before bedtime. 180 Tablet 3 07/13/2023 Active Sertraline HCl 25 MG Oral Tablet (Zoloft)Indicatio ns:ROSANA (generalized anxiety disorder),Moderat e major depression ([facility]) Take 1 Tablet by mouth in the morning. 30 Tablet 5 08/06/2023 Active Additional Information Patient not taking.Reported on 09/21/2023 Vitamin D3 50 MCG (1999) Oral Capsule Take 2 Capsules by mouth in the morning. 0 09/10/2023 Active Empagliflozin 10 MG Oral Tablet (Jardiance)Indica tions:Type 2 diabetes mellitus with hemoglobin A1c goal of less than 8.0% ([facility]) Take 1 Tablet by mouth in the morning. 30 Tablet 2 09/10/2023 Active LORazepam 1 MG Oral Tablet (Ativan)Indicatio ns:Insomnia, unspecified type Use 1/2 a tablet by mouth as needed for sleep. 15 Tablet 0 10/06/2023 Active LORazepam 1 MG Oral Tablet (Ativan)Indicatio ns:Insomnia, unspecified type Use 1/2 a tablet by mouth as needed for sleep. 15 Tablet 0 08/06/2023 3 Discontinue d(Refill) Hospital, Clinic, or Other [...] as of this encounter (statuses as of 10/06/2023) Active Problems Problem Noted Date Diagnosed Date [...] underestimate any underlying obstruction [facility] in past . Cards-saw Dr Live in [...] as of this encounter (statuses as of 10/06/2023) Immunizations Name Administration Dates Next Due COVID-19 mRNA, LNP-s, No Pre serve, 2-Dose Series ([employer]) 02/05/2021,01/15/2021 COVID-19, LNP-s, No Preserve , Torito-sucrose, [...] Miscellaneous Notes * Telephone Encounter - Bozena Corral DO - 10/06/2023 9:14 AM ESTSigned Prescriptions: Disp Refills LORazepam 1 MG Oral Tablet (Ativan) 15 Tab*0 Sig: Use 1/2 a tablet by mouth as needed for sleep.Authorizing Provider: BOZENA CORRAL * Telephone Encounter - Bozena Corral DO - 10/06/2023 9:14 AM EST Rx sent. I have reviewed the patients controlled substance dispensing history in the Prescription Drug Monitoring Program in compliance with the [facility] regulations before prescribing a controlled substance. Last Tox Screen Results: No results found for this or any previous visit. * Telephone Encounter - [facility] - 10/06/2023 8:44 AM ESTPending Prescriptions: Disp Refills LORazepam 1 MG Oral Tablet (Ativan) 15 Tab*0 Sig: Use 1/2 a tablet by mouth as needed for sleep. Electronically signed by [facility] at 10/06/2023 8:44 AM EST * Telephone Encounter - [facility] - 10/06/2023 8:44 AM EST I have reviewed the patients controlled substance dispensing history in the Prescription Drug Monitoring Program in compliance with the [facility] regulations before prescribing a controlled substance. PDMP checked on 10/06/2023. Pending Prescriptions: Disp Refills LORazepam 1 MG Oral Tablet (Ativan) 15 Tab*0 Sig: Use 1/2 a tablet by mouth as needed for sleep. Last Visit: 09/21/2023 (in office), 06/04/2023 (telemedicine) Next Visit: 10/14/2023 Date medication was last filled: 08/06/2023 Date medication is due for refill: 09/04/2023 Pharmacy: [id number] Is this request for a controlled substance? Yes and Urine Drug Screen Not completed Toxicology results: No results found for this or any previous visit. Please approve if appropriate. Thanks, Dillan Chavez Pharm.D. Clinical Pharmacist [facility] ([facility])(Formerly Telepharmacy) [phone] 10/06/2023, 8:44 AM Electronically signed by [facility] at 10/06/2023 8:44 AM EST * Telephone Encounter - Cadence Kebede, COLBY - 10/05/2023 11:53 AM EST Pending Prescriptions: Disp Refills LORazepam 1 MG Oral Tablet (Ativan) 15 Tab*0 Sig: Use 1/2 a tablet by mouth as needed for sleep. Last Visit: 09/21/2023 (in office), 06/04/2023 (telemedicine) Next Visit: 10/14/2023 Last date the medication was ordered: Patient Active Problem List Diagnosis Code Type 2 diabetes mellitus with hemoglobin A1c goal of less than 8.0% ([facility]) E11.9 HTN, goal below 140/90 I10 Dyslipidemia, goal LDL below 100 E78.5 Hypothyroidism E03.9 Seizure disorder ([facility]) G40.909 Well adult exam Z00.00 Localization-related symptomatic epilepsy and epileptic syndromes with complex partial seizures, not intractable, without status epilepticus ([facility]) G40.209 Kidney disease, chronic, stage IV (GFR 15-29 ml/min) ([facility]) N18.4 Personal history of malignant neoplasm of breast Z85.3 Benign breast cyst in female, left N60.02 Type 2 diabetes mellitus with stage 4 chronic kidney disease, without long-term current use of insulin ([facility]) E11.22, N18.4 Other chronic sinusitis J32.8 Family history of breast cancer in mother Z80.3 Moderate persistent asthma without complication J45.40 Hypertensive kidney disease with chronic kidney disease stage IV ([facility]) I12.9, N18.4 Labs: Lab Results [...] 10:00 AM EST Office Visit Family Practice [address] [place] [address], [place] [address] College, Pharmacist [address] [place] [address], [place] [address] 10/15/2023 1:00 PM EST PulmDiagnostic Pulmonary Function Lab, [facility] 132 [facility] [place] [address] [address], [address] 132 [facility] [place] [address] 10/28/2023 2:40 PM EST Office [address]ph[address], [address] [address] Nathaly Bone MD [address] [place] [address] 01/20/2024 1:00 PM EDT Office Visit Family Practice [address] [place] [address] [place] [address] Bozena Corral DO 293 [facility] [place] [address] 08/31/2024 2:00 PM EDT Nurse Only Ancillary [address] [place] 293 [place] [address] College, Nurse Annual Wellness Visit [address] [facility] 293 [place] [address] Health Maintenance Due Date Last Done Comments [...] as of this encounter Visit Diagnoses Diagnosis Insomnia, unspecified type documented in this encounter Care Teams Licensed Physical Therapy Assistant Relationship Specialty Start Date End Date Bozena Corral DO 293 [facility] [place] [address] PCP - General Family Medicine 04/22/23 documented as of this encounter
--- OUTSIDE RECORDS SUMMARY | 2023-11-10 12:09 | External Medical Summary | Summary of Care ---
Author Name Unknown Organization [facility] Address [address] [place] [address] Phone [phone] Care Team Providers Care Cotton Baler Name Role Phone Bozena De DO Primary Care Provider Reason for Visit * Reason Onset Date Comments Advice 09/22/202309/22, 09/24, Encounter Details Date Type Department Care Team (Late st Contact Info) Description 09/22/2023 Telephone Family Practice [address] [place] [address] [place] [phone] Bozena De DO [address] [place], [place] [phone] Advice (09/22, 09/24, 09/27 ) Allergies Active Allergy Reactions Criticality Noted Date Comments Baclofen Neuro complications (Please comment) 08/18/2022 confusion Phenytoin Sodium Extended Itching Low 01/07/2017 Fentanyl 04/24/2022 Lamotrigine 01/07/2017 Midazolam Neuro complications (Please comment) High 08/18/2022 confusion documented as of this encounter (statuses as of 09/28/2023) Medications Medication Sig Dispensed Refills Start Date [...] Tablet before bedtime. 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 180 Tablet 3 07/13/2023 Active LORazepam 1 MG Oral Tablet (Ativan)Indication s:Insomnia, unspecified type Use 1/2 a tablet by mouth as needed for sleep. 15 Tablet 0 08/06/2023 Active Sertraline HCl 25 MG Oral Tablet (Zoloft)Indication s:ROSANA (generalized anxiety disorder),Moderate major depression ([facility]) Take 1 Tablet by mouth in the morning. 30 Tablet 5 08/06/2023 Active Additional Information Patient not taking.Reported on 09/21/2023 Vitamin D3 50 MCG (1999 UT) Oral Capsule Take 2 Capsules by mouth in the morning. 0 09/10/2023 Active Empagliflozin 10 MG Oral Tablet (Jardiance)Indicat ions:Type 2 diabetes mellitus with hemoglobin A1c goal of less than 8.0% ([facility]) Take 1 Tablet by mouth [...] as of this encounter (statuses as of 09/28/2023) Active Problems Problem Noted Date Diagnosed Date [...] suboptimal and may underestimate any underlying obstruction [facility] in past . Cards-saw Dr Lvie in past. 08/21 considering sinus surg. Hx breast CA '13? Localization-related symptom atic epilepsy and epileptic syndromes with complex partial seizures, not intractable, without status epilepticus 12/03/2021 Dyslipidemia, goal LDL below 100 01/09/2017 Hypothyroidism 01/09/2017 Type 2 diabetes mellitus wit h hemoglobin A1c goal of less than 8.0% 01/07/2017 HTN, goal below 140/90 01/07/2017 documented as of this encounter (statuses as of 09/28/2023) Immunizations Name Administration Dates Next Due COVID-19 mRNA, LNP-s, No Pre serve, 2-Dose Series ([employer]) 02/05/2021,01/15/2021 COVID-19, LNP-s, No Preserve , Torito-sucrose, [...] 1:00 PM EST PulmDiagnostic Pulmonary Function Lab, [facility] 132 [facility] [place] [address] [place], [address] 132 [facility] [place] [address] 10/28/2023 2:40 PM EST [facility] [place] 200 [facility] [place] [place] [address] Nathaly Bone MD 400 [facility] [place] [address] 01/20/2024 1:00 PM EDT Office Visit Family Practice 65 [facility] [address] [place] [address] Bozena De DO [address] [place] [address] 08/31/2024 2:00 PM EDT Nurse Only Ancillary 65 [facility] [address] [place] [address] College, Nurse Annual Wellness Visit [address] [address] Health Maintenance Due Date Last Done Comments [...] Ratio 11/04/2023 11/04/2022, 12/2021 GFR 03/09/2024 09/09/2023, 11/2022, 07/02/2023, Additional [...] filedocumented as of this encounter Care Teams Cotton Baler Relationship Specialty Start Date End Date Bozena De DO [address] [place] [address] PCP - General Family Medicine 04/22/23 documented as of this encounter
--- OUTSIDE RECORDS SUMMARY | 2023-11-10 12:10 | External Medical Summary | Summary of Care ---
Author Name Unknown Organization [facility] Address [address] [place] [address] Phone [phone] Care Team Providers Care Plastic Cnc Machine Operator Name Role Phone Bozena Corral DO Primary Care Provider Encounter Details Date Type Department Care Team (Late st Contact Info) Description 09/10/2023 Refill Family Practice [address] [place] [address] [place] [phone] Bozena Corral, DO 293 [place] [address] Type 2 diabetes mellitus with hemoglobin A1c goal of less than 8.0% ([facility]) Allergies Active Allergy Reactions Criticality Noted Date Comments Baclofen Neuro complications (Please comment) 08/18/2022 confusion Phenytoin Sodium Extended Itching Low 01/07/2017 Fentanyl 04/24/2022 Lamotrigine 01/07/2017 Midazolam Neuro complications (Please comment) High 08/18/2022 confusion documented as of this encounter (statuses as of 09/10/2023) Medications Medication Sig Dispensed Refills Start Date End Date Status Aspirin 81 MG Tablet Take 1 Tablet by mouth in the morning. 0 Active topiramate (TOPAMAX) 200 MG Tablet Take 1 Tab by mouth 2 times a day. 60 Tab 5 01/09/2017 Active Zinc 50 MG Oral Tablet Take 1 Tablet by mouth in the morning. 0 Active Vitamin D3 50 MCG (1999 [place]) Oral Capsule Take 1 Capsule by mouth in the morning. 0 Active Acetaminophen 500 MG Oral Tablet Take 2 Tablets by mouth at bedtime. 0 Active Claritin-D 12 Hour 5-120 MG Tablet Extended Release 12 Hour (loratadine-pseud oephedrine ER 5-120 mg per tab) Take 1 Tablet by mouth in the morning and 1 Tablet before bedtime. 0 Active Afrin Nasal [place] 0.05 % Nasal Solution (oxymetazoline) Administer 2 [...] 07/13/2023 Active LORazepam 1 MG Oral Tablet (Ativan)Indicatio ns:Insomnia, unspecified type Use 1/2 a tablet by mouth as needed for sleep. 15 Tablet 0 08/06/2023 Active Sertraline HCl 25 MG Oral Tablet (Zoloft)Indicatio ns:ROSANA (generalized anxiety disorder),Moderat e major depression (HCC) Take 1 Tablet by mouth in the morning. 30 Tablet 5 08/06/2023 Active Empagliflozin 10 MG Oral Tablet (Jardiance)Indica tions:Type 2 diabetes mellitus with hemoglobin A1c goal of less than 8.0% ([facility]) Take 1 Tablet by mouth in the morning. 30 Tablet 2 09/10/2023 Active Empagliflozin 10 MG Oral Tablet (Jardiance)Indica tions:Type 2 diabetes mellitus with hemoglobin A1c goal of less than 8.0% ([facility]) Take 1 Tablet by mouth in the morning. 30 Tablet 2 06/04/2023 3 Discontinue d(Refill) Hospital, Clinic, or Other Facility Administered Medication Ordered Dose Route Frequency Start Date End Date Status Albuterol Sulfate (Proventil) (2.5 MG/3ML) 0.083% inhalation solution 2.5 mgIndications:Moderate persistent asthma without complication 2.5 mg NEBULIZER ONCE PRN 11/04/2022 11/04/2023 Acti ve documented as of this encounter (statuses as of 09/10/2023) Active Problems Problem Noted Date Diagnosed Date [...] suboptimal and may underestimate any underlying obstruction [facility] in past . Cards-saw Dr Live [...] as of this encounter (statuses as of 09/10/2023) Immunizations Name Administration Dates Next Due COVID-19 mRNA, LNP-s, No Pre serve, 2-Dose Series ([employer]) 02/05/2021,01/15/2021 COVID-19, LNP-s, No Preserve , Torito-sucrose, [...] Date Recorded PHQ Adult Total Score 0 08/31/2023 Hunger Vital Sign Answer Date Recorded Within the past 12 months, y ou worried that your food would run out before you got the money to buy more. Never true 08/31/20 23 Within the past 12 months, t he food you bought just didn't last and you didn't have money to get more. Never true 08/31/2023 Sex and Gender Information Value Date Recorded Sex Assigned at Female 02/24/2023 3:46 PM EDT Gender Identity Female 02/24/2023 3:46 PM EDT Sexual Orientation Straight 02/24/2023 3: 46 PM EDT Job Start Date Occupation Industry Not on file Not on file Not on file documented as of this encounter Miscellaneous Notes * Telephone Encounter - Bozena Corral DO - 09/10/2023 5:02 PM ESTSigned Prescriptions: Disp Refills Empagliflozin 10 MG Oral Tablet (Jardiance)30 Tab*2 Sig: Take 1 Tablet by mouth in the morning.Authorizing Provider: BOZENA CORRAL * Telephone Encounter - Autumn Preciado RN - 09/10/2023 4:57 PM EST Did you pend patient's preferred pharmacy and medication before forwarding?yes Pharmacy: [facility] [place] Pending Prescriptions: Disp Refills Empagliflozin 10 MG Oral Tablet (Jardianc*30 Tab*2 Sig: Take 1 Tablet by mouth in the morning. Last Visit: 08/06/2023 (in office), 06/04/2023 (telemedicine) Next Visit: 09/21/2023 If no future appointments scheduled, and last appointment is greater than a year ago, please schedule patient for a follow-up appointment Last date the medication was ordered: [facility] Is this request for a controlled substance?No Urine Drug Screen:No results found for this or any previous visit. Patient Phone Numbers Labs: Lab Results Component Value Date/Time CREAT 2.0 (H) 09/09/2023 10:00 AM CREAT 1.92 (A) 06/15/2020 12:00 AM POTASSIUM 4.2 09/09/2023 10:00 AM POTASSIUM 3.5 06/15/2020 12:00 AM POTASSIUM 4.6 10/19/2001 10:15 AM TSH 1.80 04/22/2023 01:04 PM TSH 0.712 06/15/2020 12:00 AM LDLCALC 83 11/04/2022 01:06 PM HGBA1C 8.3 (H) 09/09/2023 10:00 AM HGBA1C 7.6 (A) 06/15/2020 12:00 AM documented in this encounter Plan of Treatment Upcoming Encounters Date Type Department Care Team (Late st Contact Info) Description 09/21/2023 1:00 PM EST Office Visit Family Practice [address] [place] [address] 293 [place] [address] Bozena Corral DO 293 [facility] [address] 09/28/2023 11:15 AM EST Office Visit Dermatology [facility] [place] 200 [facility] [place] [address] Ambrocio Ramos MD [address] [place] [address] 09/28/2023 3:00 PM EST Cardiac Studies Cardiac Studies, [facility] [address] [facility] [place] [address] 10/28/2023 2:40 PM EST Office Visit Nephrology, [facility] 200 [facility] [place] [address] Nathaly Bone MD [address] [place] [address] 08/31/2024 2:00 PM EDT Nurse Only Ancillary 65 [facility] 293 [place] [address] College, Nurse Annual Wellness Visit 65 [facility] 293 [place] [address] Health Maintenance Due Date Last Done Comments [...] 06/08/2023, , 12/24/2021 Nephrology Referral 07/02/2024 07/02/2023 Depression Screening 08/31/2024 08/31/2023 PTH 09/09/2024 09/09/2023, 04/22/2023 Phosphate 09/09/2024 09/09/2023, 09/0 11/2022, 04/22/2023 Lipid Panel 11/04/2027 11/04/2022, 12/03/2021 DTaP,Tdap,and Td [...] A1c goal of less than 8.0% (HCC) documented in this encounter Care Teams Plastic Cnc Machine Operator Relationship Specialty Start Date End Date Bozena Corral DO 293 [place] [address] PCP - General Family Medicine 04/22/23 documented as of this encounter
--- OUTSIDE RECORDS SUMMARY | 2023-11-10 12:10 | External Medical Summary | Summary of Care ---
Author Name Unknown Organization [facility] Address [address] [place] [address] Phone [phone] Care Team Providers [employer] Name Role Phone Bozena De DO Primary Care Provider Encounter Details Date Type Department Care Team (Late st Contact Info) Description 07/22/2023 Population Health External Data Unspecified Department Allergies Active Allergy Reactions Criticality Noted Date Comments Baclofen Neuro complications (Please comment) 08/18/2022 confusion Phenytoin Sodium Extended Itching Low 01/07/2017 Fentanyl 04/24/2022 Lamotrigine 01/07/2017 Midazolam Neuro complications (Please comment) High 08/18/2022 confusion documented as of this encounter (statuses as of 09/13/2023) Medications Medication Sig Dispensed Refills Start Date [...] Tablet before bedtime. 0 Active Afrin Nasal [place] 0.05 % Nasal Solution (oxymetazoline) Administer 2 [...] before bedtime. 180 Tablet 3 07/13/2023 Active Hospital, Clinic, or Other Facility Administered Medication Ordered Dose Route Frequency Start Date End Date Status Albuterol Sulfate (Proventil) (2.5 MG/3ML) 0.083% inhalation solution 2.5 mgIndications:Moderate persistent asthma without complication 2.5 mg NEBULIZER ONCE PRN 11/04/2022 11/04/2023 Acti ve documented as of this encounter (statuses as of 09/13/2023) Active Problems Problem Noted Date Diagnosed Date [...] may underestimate any underlying obstruction [facility] in past . Cards-saw Dr Live in [...] as of this encounter (statuses as of 09/13/2023) Immunizations Name Administration Dates Next Due COVID-19 mRNA, LNP-s, No Pre serve, 2-Dose Series (GigDropper) 02/05/2021,01/15/2021 COVID-19, LNP-s, No Preserve , [place]-sucrose, [...] on file documented as of this encounter Plan of Treatment Upcoming Encounters Date Type Department Care Team (Late st Contact Info) Description 09/21/2023 1:00 PM EST Office Visit Family Practice [address] [place] [address] [facility] [place] [address] Bozena De DO [address] [place] [address] 09/28/2023 11:15 AM EST Office Visit Dermatology [facility] [address] [place] [address] Ambrocio Ramos MD [address] [place] [address] 09/28/2023 3:00 PM EST Cardiac Studies Cardiac Studies, [facility] [address] [facility] [place] [address] 10/28/2023 2:40 PM EST Office Visit Nephrology, [facility] [address] [place] [address] Nathaly Bone MD [address] [place] [address] 08/31/2024 2:00 PM EDT Nurse Only Ancillary [address] [facility] [address] [place] [address] College, Nurse Annual Wellness Visit [address] [facility] [address] [place] [address] Health Maintenance Due Date Last Done Comments [...] 04/22/2023 Phosphate 09/09/2024 09/09/2023, 090 11/2022, 04/22/2023 Lipid Panel 11/04/2027 11/04/2022, 12/03/2021 [...] filedocumented as of this encounter Care Teams [employer] Relationship Specialty Start Date End Date Bozena De DO [address] [facility] [place] [address] PCP - General Family Medicine 04/22/23 documented as of this encounter
--- OUTSIDE RECORDS SUMMARY | 2023-11-10 12:10 | External Medical Summary | Summary of Care ---
Author Name Unknown Organization [facility] Address [address] [place] [address] Phone [phone] Care Team Providers Care Instructor Physical Name Role Phone Bozena De DO Primary Care Provider [phone] Reason for Visit * Reason Comments Follow Up Encounter Details Date Type Department Care Team (Late st Contact Info) Description 09/21/2023 1:00 PM EST Office Visit Family Practice [address] [place] [address] [place] [address] Bozena De DO [address] [place] [address] Moderate persistent asthma without complication*; Chronic cough; Type 2 diabetes mellitus with hemoglobin A1c goal of less than 8.0% ([facility]); Type 2 diabetes mellitus with stage 4 chronic kidney disease, without long-term current use of insulin ([facility]) Allergies Active Allergy Reactions Criticality Noted Date Comments Baclofen Neuro complications (Please comment) 08/18/2022 confusion Phenytoin Sodium Extended Itching Low 01/07/2017 Fentanyl 04/24/2022 Lamotrigine 01/07/2017 Midazolam Neuro complications (Please comment) High 08/18/2022 confusion documented as of this encounter (statuses as of 09/22/2023) Medications Medication Sig Dispensed Refills Start Date [...] Tablet before bedtime. 0 Active Afrin Nasal [place] 0.05 % Nasal Solution (oxymetazoline) Administer 2 [...] as of this encounter (statuses as of 09/22/2023) Active Problems Problem Noted Date Diagnosed Date [...] suboptimal and may underestimate any underlying obstruction [facility] in past . Cards-saw Dr Live [...] as of this encounter (statuses as of 09/22/2023) Immunizations Name Administration Dates Next Due COVID-19 mRNA, LNP-s, No Pre serve, 2-Dose Series (Supremex) 02/05/2021,01/15/2021 COVID-19, LNP-s, No Preserve , Torito-sucrose, Ages 12+ (Supremex) 05/20/2022 Pneumococcal Conjugate Vacc, 13 Valent (Prevnar) [...] Passive Smoke Exposure: Past Smokeless Tobacco: Never Tobacco Cessation:Counseling Given: Yes Alcohol Use Standard Drinks/Week Comments Not Currently [...] on file documented as of this encounter Last Filed Vital Signs Vital Sign Reading Time Taken Comments Blood Pressure 132/72 09/21/2023 1:32 PM EST Pulse 62 09/21/2023 1:32 PM EST Temperature 37.7 C (99.8 F) 09/21/2023 1:32 PM ES T Respiratory Rate 16 09/21/2023 1:32 PM EST Oxygen Saturation 99% 09/21/2023 1:32 PM EST Inhaled Oxygen Concentration - - Weight 49 kg (108 lb) 09/21/2023 1:32 PM EST Height 137.8 cm (4' 6.25") 09/21/2023 1:32 PM ES T Body Mass Index 25.8 09/21/2023 1:32 PM EST documented in this encounter Progress Notes * Bozena De DO - 09/21/2023 1:44 PM EST SUBJECTIVE: Chief Complaint Patient presents with Follow Up HPI: Poppy Mars is a 73 year old female who presents today for regular return. Pt feels thather BP is improved. She does feel that her BP cuff is too large. Pt following closely with Dr. aRo and CMEmily, at nephrology. Pt did have increase in her A1C. She denies any diet changes. Did recently start Jardiance in June due to renal function. PHM: Patient Active Problem List Diagnosis Code Type 2 diabetes mellitus with hemoglobin A1c goal of less than 8.0% ([facility]) E11.9 HTN, goal below 140/90 I10 Dyslipidemia, goal LDL below 100 E78.5 Hypothyroidism E03.9 Seizure disorder ([facility]) G40.909 Well adult exam Z00.00 Localization-related symptomatic epilepsy and epileptic syndromes with complex partial seizures, not intractable, without status epilepticus ([facility]) G40.209 Kidney disease, chronic, stage IV (GFR 15-29 ml/min) ([facility]) N18.4 Personal history of malignant neoplasm of breast Z85.3 Benign breast cyst in female, left N60.02 Type 2 diabetes mellitus with stage 4 chronic kidney disease, without long-term current use of insulin ([facility]) E11.22, N18.4 Other chronic sinusitis J32.8 Family history of breast cancer in mother Z80.3 Moderate persistent asthma without complication J45.40 Hypertensive kidney disease with chronic kidney disease stage IV ([facility]) I12.9, N18.4 Current Outpatient Medications Medication Sig Dispense Refill Aspirin 81 MG Tablet Take 1 Tablet by mouth in the morning. topiramate (TOPAMAX) 200 MG Tablet Take 1 Tab by mouth 2 times a day. 60 Tab 5 Zinc 50 MG Oral Tablet Take 1 Tablet by mouth in the morning. Acetaminophen 500 MG Oral Tablet Take 2 Tablets by mouth at bedtime. Claritin-D 12 Hour 5-120 MG Tablet Extended Release 12 Hour (loratadine- pseudoephedrine ER 5-120 mgper tab) Take 1 Tablet by mouth in the morning and 1 Tablet before bedtime. Afrin Nasal [place]ing[place] 0.05 % Nasal Solution (oxymetazoline) Administer 2 Sprays into nostril in the morning and 2 Sprays before bedtime. Methocarbamol 500 MG Oral Tablet (Robamol) Take 1 Tablet by mouth 2 times a day as needed. Calcium 600 MG Oral Tablet Take 1 Tablet (600 mg) by mouth in the morning. 90 Tablet 3 Oxybutynin Chloride ER 10 MG Oral Tablet Extended Release 24 Hour (Ditropan XL) Take 1 Tablet (10 mg) by mouth in the morning. 90 Tablet 3 Levothyroxine Sodium 75 MCG Oral Tablet (Levoxyl) Take 1 Tablet (75 mcg) by mouth in the morning. As directed.. 90 Tablet 3 Atorvastatin Calcium 40 MG Oral Tablet (Lipitor) Take 1 Tablet (40 mg) by mouth in the morning. 90 Tablet 3 amLODIPine Besylate 10 MG Oral Tablet (Norvasc) Take 1 Tablet by mouth in the morning. 90 Tablet 3 Breo Ellipta 200-25 MCG/ACT Inhalation Aerosol Powder Breath Activated inhale 1 puff by mouth and INTO THE LUNGS every morning (Patient taking differently: Inhale 1 Puff by mouth at bedtime.) 60 Blister Dosing Unit 2 Atenolol 50 MG Oral Tablet (Tenormin) Take 1 Tablet by mouth in the morning. 90 Tablet 3 Sodium Bicarbonate 650 MG Oral Tablet Take 1 Tablet by mouth in the morning and 1 Tablet before bedtime. 180 Tablet 3 LORazepam 1 MG Oral Tablet (Ativan) Use 1/2 a tablet by mouth as needed for sleep. 15 Tablet 0 Vitamin D3 50 MCG (2000 UT) Oral Capsule Take 2 Capsules by mouth in the morning. Empagliflozin 10 MG Oral Tablet (Jardiance) Take 1 Tablet by mouth in the morning. 30 Tablet 2 Ondansetron HCl 4 MG Oral Tablet Take by mouth 1 Tablet every 8 hours as needed for Nausea. 20 Tablet 0 Calcium Carbonate Antacid 500 MG Oral Tablet Chewable Take 1 Tablet by mouth as needed for Heartburn. Albuterol Sulfate HFA 108 (90 Base) MCG/ACT Inhalation Aerosol Solution Inhale 2 Puffs by mouth every 6 hours as needed (cough/wheeze). 18 g 3 Sertraline HCl 25 MG Oral Tablet (Zoloft) Take 1 Tablet by mouth in the morning. (Patient not taking: Reported on 09/21/2023) 30 Tablet 5 Current Facility-Administered Medications Medication Dose Route Frequency Provider Last Rate Last Admin Albuterol Sulfate (Proventil) (2.5 MG/3ML) 0.083% inhalation solution 2.5 mg 2.5 mg Nebulizer Once PRN Lowell Rodriguez MD Past Medical History: Diagnosis Date Breast cancer ([facility]) 2000 right breast Ductal CA Dyslipidemia, goal LDL below 130 Family history of breast cancer in mother 10/23/2022 HTN, goal below 140/90 Hypothyroidism Kidney disease, chronic, stage IV (GFR 15-29 ml/min) ([facility]) 12/04/2021 Other chronic sinusitis 10/23/2022 Personal history of malignant neoplasm of breast 04/24/2022 2000 Retinopathy of left eye 05/05/2023 severe Seizure disorder ([facility]) dx 2006, follows w/Dr. Sheldon, stable on topamax Type 2 diabetes mellitus ([facility]) Type 2 diabetes mellitus with hemoglobin A1c goal of less than 8.0% ([facility]) 01/07/2017 Past Surgical History: Procedure Laterality Date CARDIAC CATHETERIZATION REPORT CATARACT SURGERY,COMPLEX Left 01/2017 Dr Turk COLONOSCOPY MASTECTOMY, PARTIAL Right 2000 MISCELLANEOUS ORDER ([facility] ONLY) Right lumpectomy breast REMOVAL OF OVARY(S) 1975 TOTAL ABD HYSTERECTOMY W/WO REMOVAL OF TUBE(S) Review of patient's allergies indicates: Allergen Reactions Midazolam Neuro complications (Please comment) confusion Baclofen Neuro complications (Please comment) confusion Fentanyl Lamictal [Lamotrigine] Dilantin [Phenytoin Sodium Extended] Itching Family History Problem Relation Age of Onset Breast Cancer Mother 66 Other (Other) Father back surgery Heart Disorder Father [place], passed at 63 Addiction problem Sister both sisters in [place]. Other (ckd) Sister Addiction problem Sister Lung cancer Brother 50 Heart Disorder Grandmother (Maternal) [place] Heart Disorder Grandmother (Paternal) "Dropsy" Heart Disorder Grandfather (Paternal) [place] Family Status Relation Status Mo Fa Sis Alive Sis Alive Bro MGMA (Not Specified) PGMA (Not Specified) PGFA (Not Specified) Social History Tobacco Use Smoking status: Never Passive exposure: Past Smokeless tobacco: Never Substance Use Topics Alcohol use: Not Currently Comment: rare, at weddings Vaping/E-Cigarette Use Vaping/E-Cigarette Use Never User Vaping/E-Cigarette Substances Vaping/E-Cigarette Devices REVIEW OF SYSTEMS: OBJECTIVE: BP 132/72 (BP Site: Left Arm, BP Position: Sitting, BP Cuff Size: Regular) | Pulse 62 | Temp 37.7 C (99.8 F) (Tympanic) | Resp 16 | Ht 1.378 m (4' 6.25") | Wt 49 kg (108 lb) | SpO2 99% | BMI 25.80 kg/m | BSA 1.37 m PHYSICAL EXAM: ASSESSMENT/PLAN: Bozena De DO * Bozena De DO - 09/21/2023 1:35 PM EST SUBJECTIVE: Chief Complaint Patient presents with Follow Up HPI: Poppy Mars is a 73 year old female who presents today for regular return. Pt notes she is doing ok. Her BP has been better. Sugars increased with last lab studies. Pt notes she is taking the Jardiance. Believes that she was on once a week injectable in past but unsure. Pt notes that her cough is consistently there. She was seen by pulmonary in the past and diagnosed with asthma. Still feels like she coughs with the Breo. Do see previous order for PFT but these werenever done. PHM: Patient Active Problem List Diagnosis Code Type 2 diabetes mellitus with hemoglobin A1c goal of less than 8.0% ([facility]) E11.9 HTN, goal below 140/90 I10 Dyslipidemia, goal LDL below 100 E78.5 Hypothyroidism E03.9 Seizure disorder ([facility]) G40.909 Well adult exam Z00.00 Localization-related symptomatic epilepsy and epileptic syndromes with complex partial seizures, not intractable, without status epilepticus ([facility]) G40.209 Kidney disease, chronic, stage IV (GFR 15-29 ml/min) ([facility]) N18.4 Personal history of malignant neoplasm of breast Z85.3 Benign breast cyst in female, left N60.02 Type 2 diabetes mellitus with stage 4 chronic kidney disease, without long-term current use of insulin ([facility]) E11.22, N18.4 Other chronic sinusitis J32.8 Family history of breast cancer in mother Z80.3 Moderate persistent asthma without complication J45.40 Hypertensive kidney disease with chronic kidney disease stage IV ([facility]) I12.9, N18.4 Current Outpatient Medications Medication Sig Dispense Refill Aspirin 81 MG Tablet Take 1 Tablet by mouth in the morning. topiramate (TOPAMAX) 200 MG Tablet Take 1 Tab by mouth 2 times a day. 60 Tab 5 Zinc 50 MG Oral Tablet Take 1 Tablet by mouth in the morning. Acetaminophen 500 MG Oral Tablet Take 2 Tablets by mouth at bedtime. Claritin-D 12 Hour 5-120 MG Tablet Extended Release 12 Hour (loratadine- pseudoephedrine ER 5-120 mgper tab) Take 1 Tablet by mouth in the morning and 1 Tablet before bedtime. Afrin Nasal [place] 0.05 % Nasal Solution (oxymetazoline) Administer 2 Sprays into nostril in the morning and 2 Sprays before bedtime. Methocarbamol 500 MG Oral Tablet (Robamol) Take 1 Tablet by mouth 2 times a day as needed. Calcium 600 MG Oral Tablet Take 1 Tablet (600 mg) by mouth in the morning. 90 Tablet 3 Oxybutynin Chloride ER 10 MG Oral Tablet Extended Release 24 Hour (Ditropan XL) Take 1 Tablet (10 mg) by mouth in the morning. 90 Tablet 3 Levothyroxine Sodium 75 MCG Oral Tablet (Levoxyl) Take 1 Tablet (75 mcg) by mouth in the morning. As directed.. 90 Tablet 3 Atorvastatin Calcium 40 MG Oral Tablet (Lipitor) Take 1 Tablet (40 mg) by mouth in the morning. 90 Tablet 3 amLODIPine Besylate 10 MG Oral Tablet (Norvasc) Take 1 Tablet by mouth in the morning. 90 Tablet 3 Breo Ellipta 200-25 MCG/ACT Inhalation Aerosol Powder Breath Activated inhale 1 puff by mouth and INTO THE LUNGS every morning (Patient taking differently: Inhale 1 Puff by mouth at bedtime.) 60 Blister Dosing Unit 2 Atenolol 50 MG Oral Tablet (Tenormin) Take 1 Tablet by mouth in the morning. 90 Tablet 3 Sodium Bicarbonate 650 MG Oral Tablet Take 1 Tablet by mouth in the morning and 1 Tablet before bedtime. 180 Tablet 3 LORazepam 1 MG Oral Tablet (Ativan) Use 1/2 a tablet by mouth as needed for sleep. 15 Tablet 0 Vitamin D3 50 MCG (2000 UT) Oral Capsule Take 2 Capsules by mouth in the morning. Empagliflozin 10 MG Oral Tablet (Jardiance) Take 1 Tablet by mouth in the morning. 30 Tablet 2 Ondansetron HCl 4 MG Oral Tablet Take by mouth 1 Tablet every 8 hours as needed for Nausea. 20 Tablet 0 Calcium Carbonate Antacid 500 MG Oral Tablet Chewable Take 1 Tablet by mouth as needed for Heartburn. Albuterol Sulfate HFA 108 (90 Base) MCG/ACT Inhalation Aerosol Solution Inhale 2 Puffs by mouth every 6 hours as needed (cough/wheeze). 18 g 3 Sertraline HCl 25 MG Oral Tablet (Zoloft) Take 1 Tablet by mouth in the morning. (Patient not taking: Reported on 09/21/2023) 30 Tablet 5 Current Facility-Administered Medications Medication Dose Route Frequency Provider Last Rate Last Admin Albuterol Sulfate (Proventil) (2.5 MG/3ML) 0.083% inhalation solution 2.5 mg 2.5 mg Nebulizer Once PRN Lowell Rodriguez MD Past Medical History: Diagnosis Date Breast cancer ([facility]) 2000 right breast Ductal CA Dyslipidemia, goal LDL below 130 Family history of breast cancer in mother 10/23/2022 HTN, goal below 140/90 Hypothyroidism Kidney disease, chronic, stage IV (GFR 15-29 ml/min) ([facility]) 12/04/2021 Other chronic sinusitis 10/23/2022 Personal history of malignant neoplasm of breast 04/24/20221999 Retinopathy of left eye 05/05/2023 severe Seizure disorder ([facility]) dx 2005, follows w/Dr. Sheldon, stable on topamax Type 2 diabetes mellitus ([facility]) Type 2 diabetes mellitus with hemoglobin A1c goal of less than 8.0% ([facility]) 01/07/2017 Past Surgical History: Procedure Laterality Date CARDIAC CATHETERIZATION REPORT CATARACT SURGERY,COMPLEX Left 01/2017 Dr Turk COLONOSCOPY MASTECTOMY, PARTIAL Right 2000 MISCELLANEOUS ORDER ([facility] ONLY) Right lumpectomy breast REMOVAL OF OVARY(S) 1975 TOTAL ABD HYSTERECTOMY W/WO REMOVAL OF TUBE(S) Review of patient's allergies indicates: Allergen Reactions Midazolam Neuro complications (Please comment) confusion Baclofen Neuro complications (Please comment) confusion Fentanyl Lamictal [Lamotrigine] Dilantin [Phenytoin Sodium Extended] Itching Family History Problem Relation Age of Onset Breast Cancer Mother 66 Other (Other) Father back surgery Heart Disorder Father [place], passed at 63 Addiction problem Sister both sisters in [place]. Other (ckd) Sister Addiction problem Sister Lung cancer Brother 50 Heart Disorder Grandmother (Maternal) [place] Heart Disorder Grandmother (Paternal) "Dropsy" Heart Disorder Grandfather (Paternal) [place] Family Status Relation Status Mo Fa Sis Alive Sis Alive Bro MGMA (Not Specified) PGMA (Not Specified) PGFA (Not Specified) Social History Tobacco Use Smoking status: Never Passive exposure: Past Smokeless tobacco: Never Substance Use Topics Alcohol use: Not Currently Comment: rare, at weddings Vaping/E-Cigarette Use Vaping/E-Cigarette Use Never User Vaping/E-Cigarette Substances Vaping/E-Cigarette Devices REVIEW OF SYSTEMS: Review of Systems Constitutional: Negative for chills, fatigue, fever and unexpected weight change. Respiratory: Negative for cough, chest tightness, shortness of breath and wheezing. Cardiovascular: Negative for chest pain, palpitations and leg swelling. Gastrointestinal: Negative for abdominal pain, constipation, diarrhea, nausea and vomiting. Musculoskeletal: Negative for arthralgias, gait problem and joint swelling. Skin: Negative for color change, pallor and rash. OBJECTIVE: BP 132/72 (BP Site: Left Arm, BP Position: Sitting, BP Cuff Size: Regular) | Pulse 62 | Temp 37.7 C (99.8 F) (Tympanic) | Resp 16 | Ht 1.378 m (4' 6.25") | Wt 49 kg (108 lb) | SpO2 99% | BMI 25.80 kg/m | BSA 1.37 m PHYSICAL EXAM: Physical Exam Constitutional: General: She is not in acute distress. Appearance: She is well-developed. Cardiovascular: Rate and Rhythm: Normal rate and regular rhythm. Heart sounds: Normal heart sounds. No murmur heard. No friction rub. No gallop. Pulmonary: Effort: Pulmonary effort is normal. No respiratory distress. Breath sounds: Normal breath sounds. No wheezing or rales. Abdominal: General: Bowel sounds are normal. There is no distension. Palpations: Abdomen is soft. Tenderness: There is no abdominal tenderness. There is no guarding. Musculoskeletal: General: No tenderness or deformity. Normal range of motion. Skin: General: Skin is warm and dry. Coloration: Skin is not pale. Findings: No erythema or rash. Neurological: Mental Status: She is alert and oriented to person, place, and time. ASSESSMENT/PLAN: (J45.40) Moderate persistent asthma without complication (primary encounter diagnosis) (R05.3) Chronic cough Plan: LUNG VOLUMES (PLETHYSMOGRAPHY), DIFFUSION CAPACITY (DLCO), SPIROMETRY B/A BRONCHODILATOR, Albuterol Sulfate (Proventil) (2.5 MG/3ML) 0.083% inhalation solution 2.5 mg Pt will complete PFT. Continue on Breo. Await results. (E11.9) Type 2 diabetes mellitus with hemoglobin A1c goal of less than 8.0% (HCC) (E11.22, N18.4) Type 2 diabetes mellitus with stage 4 chronic kidney disease, without long-term current use of insulin (HCC) Plan: Discussed with Vivian, she will reach out to pt to follow. Discussed starting Ozempic but unclear history of why this was stopped. Will need to monitor her weight. A1C up to 8.3 so will need to monitor. Follow-up: 3 months Total time today including reviewing chart before the visit, pertinent labs, imaging reports, face to face time, and documentation time was 33 minutes. Bozena De DO * Dona Mathews LPN - 09/21/2023 1:25 PM EST Patient here for follow up visit. States she was not feeling well last week and did home COVID testwhich she reports was negative. States she is feeling better now. Declined COVID vaccine and declined 2nd Shingrix today. States she had severe arm pain after the first vaccines. Education provided it is a 2 step vaccine. States she will reconsider after the holidays. Declined colonscopy, cologuard, FOBT testing. She would like to discuss RSV vaccine with PCP, unsure if she wants to get it or not. documented in this encounter Plan of Treatment Upcoming Encounters Date Type Department Care Team (Late st Contact Info) Description 09/28/2023 11:15 AM EST Office Visit Dermatology [facility] [place] [address] [place] [address] Ambrocio Ramos MD [address] [facility] [place] [address] 09/28/2023 3:00 PM EST Cardiac Studies Cardiac Studies, [facility] [address] [facility] [place] [address] 10/15/2023 1:00 PM EST PulmDiagnostic Pulmonary Function Lab, [facility] [address] [facility] [place] [address] [place], [address] [facility] [place] [address] 10/28/2023 2:40 PM EST Office Visit Nephrology, [facility] [address] [facility] [place] [address] Nathaly Bone MD [address] [place] [address] 01/20/2024 1:00 PM EDT Office Visit Family Practice [address] [facility] [address] [place] [address] Bozena De DO [address] [place] [address] 08/31/2024 2:00 PM EDT Nurse Only Ancillary [address] [facility] [address] [place] [address] College, Nurse Annual Wellness Visit [address] [place] [address] Scheduled Orders Name Type Priority Associated Diagnoses Orde r Schedule LUNG VOLUMES (PLETHYSMOGRAPHY) Procedures Routine Moderate persistent asthma without complication Chronic cough Expected: 09/21/2023 (Approximate), Expires: 09/21/2024 DIFFUSION CAPACITY (DLCO) Procedures Routine Moderate persistent asthma without complication Chronic cough Expected: 09/21/2023 (Approximate), Expires: 09/21/2024 SPIROMETRY B/A BRONCHODILATOR Procedures Routine Moderate persistent asthma without complication Chronic cough Expected: 09/21/2023, Expires: 10/21/2024 Health Maintenance Due Date Last Done Comments Cologuard 1994 Colonoscopy 1994 Colorectal Cancer Screening 1994 Fecal Occult Blood Test 1994 Sigmoidoscopy 1994 Hepatitis B (1 of 3 - Risk 3-dose series) 2009 Mammogram 06/05/2023 06/05/2022, 05/19/2022 Zoster Vaccines (2 of 2) 06/17/2023 04/22/2023 COVID-19 Vaccine ( - season) 2023 05/20/2022, 02/05/2021, 01/15/2021 Hgb 09/05/2023 [...] Visit Diagnoses Diagnosis Moderate persistent asthma without complication- Primary Unspecified asthma Chronic cough Cough Type 2 diabetes mellitus with hemoglobin A1c goal of less than 8.0% (HCC) Type 2 diabetes mellitus with stage 4 chronic kidney disease, without long-term current use of insulin (HCC) documented in this encounter Care Teams Instructor Physical Relationship Specialty Start Date End Date Bozena De DO [address] [place] [address] PCP - General Family Medicine 04/22/23 documented as of this encounter
--- OUTSIDE RECORDS SUMMARY | 2023-11-10 12:10 | External Medical Summary | Summary of Care ---
Author Name Unknown Organization [facility] Address [address] [address] Phone [phone] Care Team Providers Care Mining Consultant Name Role Phone Bozena De Primary Care Provider Reason for Visit * Reason Onset Date Comments Blood Pressure Check 09/09/2023 Encounter Details Date Type Department Care Team (Late st Contact Info) Description 09/09/2023 Telephone Nephrology, [facility] [place] [address] Mandy Rao MD 200 [place] [address] Blood Pressure Check Allergies Active Allergy Reactions Criticality Noted Date Comments Baclofen Neuro complications (Please comment) 08/18/2022 confusion Phenytoin Sodium Extended Itching Low 01/07/2017 Fentanyl 04/24/2022 Lamotrigine 01/07/2017 Midazolam Neuro complications (Please comment) High 08/18/2022 confusion documented as of this encounter (statuses as of 09/14/2023) Medications Medication Sig Dispensed Refills Start Date [...] Tablet before bedtime. 0 Active Afrin Nasal [place] 0.05 % Nasal Solution (oxymetazoline) Administer 2 [...] disease, chronic, stage IV (GFR 15-29 ml/min) ([facility]) Take 1 Tablet by mouth in the morning and 1 Tablet before bedtime. 180 Tablet 3 07/13/2023 Active LORazepam 1 MG Oral Tablet (Ativan)Indicatio ns:Insomnia, unspecified type Use 1/2 a tablet by mouth as needed for sleep. 15 Tablet 0 08/06/2023 Active Sertraline HCl 25 MG Oral Tablet (Zoloft)Indicatio ns:ROSANA (generalized anxiety disorder),Moderat e major depression ([facility]) Take 1 Tablet by mouth in the morning. 30 Tablet 5 08/06/2023 Active Vitamin D3 50 MCG (1999 UT) Oral Capsule Take 1 Capsule by mouth in the morning. 0 3 Discontinue d(Refill) Empagliflozin 10 MG Oral Tablet (Jardiance)Indica tions:Type 2 diabetes mellitus with hemoglobin A1c goal of less than 8.0% ([facility]) Take 1 Tablet by mouth in the morning. 30 Tablet 2 06/04/2023 3 Discontinue d(Refill) Hospital, Clinic, or Other Facility Administered Medication Ordered Dose Route Frequency Start Date End Date Status Albuterol Sulfate (Proventil) (2.5 MG/3ML) 0.083% inhalation solution 2.5 mgIndications:Moderate persistent asthma without complication 2.5 mg NEBULIZER ONCE PRN 11/04/2022 11/04/2023 Acti ve documented as of this encounter (statuses as of 09/14/2023) Active Problems Problem Noted Date Diagnosed Date [...] and may underestimate any underlying obstruction [facility] in past . Cards-saw Dr [...] as of this encounter (statuses as of 09/14/2023) Immunizations Name Administration Dates Next Due COVID-19 [...] encounter Miscellaneous Notes * Telephone Encounter - Mandy Rao MD - 09/14/2023 4:09 PM EST Renal RN /Prudence > can you reach out to tomorrow health or/and d/w [facility] and Emily * Telephone Encounter - Polly Dc LPN - 09/09/2023 10:37 AM EST [facility] cuff is what she brought into office today. * Telephone Encounter - Polly Dc LPN - 09/09/2023 9:55 AM EST Pt came in today to have her remote bp monitor(louis Kenyon) validated. The cuff she received is very small. It is for arm size 15-24cm. Pts arm measured at 31cm. As soon as cuff started to inflate it started to open. Reading was 208/80. Pts bp with our office cuff was 148/74. Weight today was 109.6 lb Is there a way to get patient a cuff that is a little bigger? Thanks. documented in this encounter Plan of Treatment Upcoming Encounters Date Type Department Care Team (Late st Contact Info) Description 09/21/2023 1:00 PM EST Office Visit Family Practice 65 [facility] [address] [place] [address] Bozena De DO [address] [place] [address] 09/28/2023 11:15 AM EST Office Visit Dermatology [facility] 200 [facility] [place] [address] Ambrocio Ramos MD 200 [place] [address] 09/28/2023 3:00 PM EST Cardiac Studies Cardiac Studies, [facility] [address] [place] [address] 10/28/2023 2:40 PM EST Office Visit Nephrology, [facility] 200 [facility] [place] [address] Nathaly Bone MD [address] [place] [address] 08/31/2024 2:00 PM EDT Nurse Only Ancillary 65 [facility] [address] [place] [address] College, Nurse Annual Wellness Visit [address] [address] Health Maintenance Due Date Last Done Comments Cologuard 1994 Colonoscopy 1994 Colorectal Cancer Screening 1994 Fecal Occult Blood Test 1994 Sigmoidoscopy 1994 Hepatitis B (1 of 3 - Risk 3-dose series) 2009 Mammogram 06/05/2023 06/05/2022, 05/19/2022 Zoster Vaccines (2 of 2) 06/17/2023 04/22/2023 COVID-19 Vaccine ( season) 2023 05/20/2022, 02/05/2021, 01/15/2021 Hgb 09/05/2023 09/05/2022, 0803/2020, 02/25/2001 Albumin/Creatinine Ratio 11/04/2023 11/04/2022, 0212/2021 GFR [...] filedocumented as of this encounter Care Teams Mining Consultant Relationship Specialty Start Date End Date Bozena De DO [address] [place] [address] PCP - General Family Medicine 04/22/23 documented as of this encounter
--- OUTSIDE RECORDS SUMMARY | 2023-11-10 12:10 | External Medical Summary | Summary of Care ---
Author Name Unknown Organization [facility] Address [address] [place] [address] Phone [phone] Care Team Providers Care Crisis Manager Name Role Phone Bozena De DO Primary Care Provider [phone] Reason for Visit * Reason Onset Date Comments Test Results 09/10/2023 Encounter Details Date Type Department Care Team (Late st Contact Info) Description 09/10/2023 Telephone Nephrology, Alison Sena [facility] [place] [address] Mandy Rao MD [address] [place] [address] Test Results Allergies Active Allergy Reactions Criticality Noted Date [...] Tablet before bedtime. 0 Active Afrin Nasal [place] 0.05 % Nasal Solution (oxymetazoline) Administer 2 [...] mouth in the morning. 0 09/10/2023 Active Vitamin D3 50 MCG (1999 [place]) Oral Capsule Take 1 Capsule by mouth in the morning. 0 Discontinue d(Refill) Hospital, Clinic, or Other Facility [...] suboptimal and may underestimate any underlying obstruction [facility] in past . Cards-saw Dr [...] encounter Miscellaneous Notes * Telephone Encounter - Prudence Hudson RN - 09/13/2023 9:49 AM EST TE with pt regarding stable lab results and aware to double Vitamin D dose to 4000 units daily. * Telephone Encounter - Prudence Hudson RN - 09/13/2023 9:47 AM EST ----- Message from Mandy Rao MD sent at 09/10/2023 2:58 PM EST ----- Kidney labs stable except worse PTH -double current D3 dose 2K > 4K units * Telephone Encounter - Prudence Hudson RN - 09/10/2023 3:10 PM EST Attempted to contact pt. Unable to leave message. Med list updated for increase in Vitamin D. Will attempt call later. * Telephone Encounter - Prudence Hudson RN - 09/10/2023 3:10 PM EST ----- Message from Mandy Rao MD sent at 09/10/2023 2:58 PM EST ----- Kidney labs stable except worse PTH -double current D3 dose 2K > 4K units documented in this encounter Plan of Treatment Upcoming Encounters Date Type Department Care Team (Late st Contact Info) Description 09/21/2023 1:00 PM EST Office Visit Family Practice 65 [facility] [address] [place] [address] Bozena De DO [address] [place] [address] 09/28/2023 11:15 AM EST Office Visit Dermatology [facility] 200 [place] [address] Ambrocio Ramos MD 200 [place] [address] 09/28/2023 3:00 PM EST Cardiac Studies Cardiac Studies, [facility] [address] [place] [address] 10/28/2023 2:40 PM EST Office Visit Nephrology, [facility] [address] [place] [address] Nathaly Bone MD [address] [place] [address] 08/31/2024 2:00 PM EDT Nurse Only Ancillary 65 [facility] [address] [place] [address] College, Nurse Annual Wellness Visit [address] [address] Health Maintenance Due Date Last Done Comments [...] 09/09/2023, 04/22/2023 Phosphate 09/09/2024 09/09/2023, 0911/2022, 04/22/2023 Lipid Panel 11/04/2027 11/04/2022, 12/03/2021 DTaP,Tdap,and [...] filedocumented as of this encounter Care Teams Crisis Manager Relationship Specialty Start Date End Date Bozena De DO [address] [facility] [place] [address] PCP - General Family Medicine 04/22/23 documented as of this encounter
--- OUTSIDE RECORDS SUMMARY | 2023-11-10 12:10 | External Medical Summary | Summary of Care ---
Author Name Unknown Organization [facility] Address [address] [place] [address] Phone [phone] Care Team Providers Care [employer] Name Role Phone Bozena De Primary Care Provider [phone] Reason for Visit * Reason Onset Date Comments Adult Annual Wellness Visit, Initial Visit Adult Annual Wellness Visit, Initial Visit 08/31 Encounter Details Date Type Department Care Team (Late st Contact Info) Description 08/31/2023 1:00 PM EDT Nurse Only Ancillary [address] [facility] [address] [place] [address] College, Nurse Annual Wellness Visit [address] [place] [address] Adult Annual Wellness Visit, Initial Visit... Allergies Active Allergy Reactions Criticality Noted Date [...] Tablet before bedtime. 0 Active Afrin Nasal [place] 0.05 % Nasal Solution (oxymetazoline) Administer 2 [...] disease, chronic, stage IV (GFR 15-29 ml/min) ([facility]) Take 1 Tablet by mouth in the morning and 1 Tablet before bedtime. 180 Tablet 3 07/13/2023 Active LORazepam 1 MG Oral Tablet (Ativan)Indicatio ns:Insomnia, unspecified type Use 1/2 a tablet by mouth as needed for sleep. 15 Tablet 0 08/06/2023 Active Sertraline HCl 25 MG Oral Tablet (Zoloft)Indicatio ns:ROSANA (generalized anxiety disorder),Moderat e major depression ([facility]) Take 1 Tablet by mouth in the morning. 30 Tablet 5 08/06/2023 Active Empagliflozin 10 MG Oral Tablet (Jardiance)Indica tions:Type 2 diabetes mellitus with hemoglobin A1c goal of less than 8.0% ([facility]) Take 1 Tablet by mouth in the [...] suboptimal and may underestimate any underlying obstruction [facility] in past . Cards-saw Dr Live [...] Sign Reading Time Taken Comments Blood Pressure 140/72 08/31/2023 1:40 PM EDT Pulse 69 08/31/2023 1:40 PM EDT Temperature 37.1 C (98.7 F) 08/31/2023 1:40 PM ED T Respiratory Rate - - Oxygen Saturation 95% 08/31/2023 1:40 PM EDT Inhaled Oxygen Concentration - - Weight 50.3 kg (110 lb 12.8 oz) 08/31/2023 1:40 PM EDT Height 137.8 cm (4' 6.25") 08/31/2023 1:40 PM ED T Body Mass Index 26.47 08/31/2023 1:40 PM EDT documented in this encounter Patient Instructions * Patient Instructions* Autumn Preciado RN - 08/31/2023 2:01 PM EDT Hi Ms. Mars, As your primary care physician, I know that regular visits with my patients who have several chronic conditions can go a long way in helping you stay healthy. Many times, the clinic team and I are in touch with you and/or other care team members between office visits to adjust medications, discuss any changes in your health, and review our care plan to make sure it is still meeting your needs. I am dedicated to helping you take a more active role in your overall care. It is important that there are resources available to you, so I created a personalized plan of care with a Health Calendar for you, which is included on the next page of this letter. Below is a list that summarizes your electronic health record: Health Maintenance Due: Health Maintenance Due Topic Date Due Colorectal Cancer Screening Never done Hepatitis B (1 of 3 - Risk 3-dose series) Never done Mammogram 06/05/2023 Zoster Vaccines (2 of 2) 06/17/2023 COVID-19 Vaccine ( season) 2023 Albumin/Creatinine Ratio 11/04/2023 Current Medication List: (as of Visit date not found (in office), Visit date not found (telemedicine) ) Current Outpatient Medications Medication Sig Dispense Refill Aspirin 81 MG Tablet Take 1 Tablet by mouth in the morning. topiramate (TOPAMAX) 200 MG Tablet Take 1 Tab by mouth 2 times a day. 60 Tab 5 Zinc 50 MG Oral Tablet Take 1 Tablet by mouth in the morning. Vitamin D3 50 MCG (2000 UT) Oral Capsule Take 1 Capsule by mouth in the morning. Acetaminophen 500 MG Oral Tablet Take 2 Tablets by mouth at bedtime. Claritin-D 12 Hour 5-120 MG Tablet Extended Release 12 Hour (loratadine- pseudoephedrine ER 5-120 mg per tab) Take 1 Tablet by mouth in the morning and 1 Tablet before bedtime. Methocarbamol 500 MG Oral Tablet [...] Tablet (40 mg) by mouth in the morning.90 Tablet 3 amLODIPine Besylate 10 MG Oral Tablet (Norvasc) Take 1 Tablet by mouth in the morning. 90 Tablet 3 Breo Ellipta 200-25 MCG/ACT Inhalation Aerosol Powder Breath Activated inhale 1 puff by mouth and INTO THE LUNGS every morning (Patient taking differently: Inhale 1 Puff by mouth at bedtime.) 60 Blister Dosing Unit 2 Calcium Carbonate Antacid 500 MG Oral Tablet Chewable Take 1 Tablet by mouth as needed for Heartburn. Atenolol 50 MG Oral Tablet (Tenormin) Take 1 Tablet by mouth in the morning. 90 Tablet 3 Albuterol Sulfate HFA 108 (90 Base) MCG/ACT Inhalation Aerosol Solution Inhale 2 Puffs by mouthevery 6 hours as needed (cough/wheeze). 18 g 3 Empagliflozin 10 MG Oral Tablet (Jardiance) Take 1 Tablet by mouth in the morning. 30 Tablet 2 Sodium Bicarbonate 650 MG Oral Tablet Take 1 Tablet by mouth in the morning and 1 Tablet beforebedtime. 180 Tablet 3 LORazepam 1 MG Oral Tablet (Ativan) Use 1/2 a tablet by mouth as needed for sleep. 15 Tablet 0 Afrin Nasal [place] 0.05 % Nasal Solution (oxymetazoline) Administer 2 Sprays into nostril in themorning and 2 Sprays before bedtime. (Patient not taking: Reported on 07/22/2023) Ondansetron HCl 4 MG Oral Tablet Take by mouth 1 Tablet every 8 hours as needed for Nausea. 20 Tablet 0 Sertraline HCl 25 MG Oral Tablet (Zoloft) Take 1 Tablet by mouth in the morning. 30 Tablet 5 Current Facility-Administered Medications Medication Dose Route Frequency Provider Last Rate Last Admin Albuterol Sulfate (Proventil) (2.5 MG/3ML) 0.083% inhalation solution 2.5 mg 2.5 mg Nebulizer Once PRN Lowell Rodriguez MD Current List of Allergies: (as of Visit date not found (in office), Visit date not found (telemedicine) ) Review of patient's allergies indicates: Allergen Reactions Midazolam Neuro complications (Please comment) confusion Baclofen Neuro complications (Please comment) confusion Fentanyl Lamictal [Lamotrigine] Dilantin [Phenytoin Sodium Extended] Itching Most Recent Lab Results: Results for orders placed or performed in visit on 07/02/23 BASIC METABOLIC PANEL Result Value Ref Range BUN 27 (H) 6 - 20 mg/dL Creatinine 1.9 (H) 0.5 - 1.0 mg/dL Estimated Glomerular Filtration Rate 27 (L) >=60 mL/min Sodium 139 135 - 146 mmol/L Potassium 4.0 3.5 - 5.1 mmol/L Chloride 106 98 - 107 mmol/L CO2 20 (L) 22 - 32 mmol/L Anion Gap 13 7 - 15 mmol/L Glucose 160 (H) 70 - 120 mg/dL Calcium 9.7 8.4 - 10.2 mg/dL PHOSPHORUS Result Value Ref Range Phosphorus 4.0 2.5 - 4.8 mg/dL 25-HYDROXY VITAMIN D Result Value Ref Range 25-Hydroxy Vitamin D 41 >19 ng/mL CYSTATIN C WITH EGFR Result Value Ref Range Cystatin C 2.60 (H) 0.52 - 1.10 mg/L EGFR 19 (L) >=60 URIC ACID Result Value Ref Range Uric Acid 5.3 2.4 - 5.7 mg/dL Sincerely, Bozena De, DO 08/31/2023 [facility] Calendar (as of Visit date not found (in office), Visit date not found (telemedicine) ) Care needs Care needs Last completed Due next Colorectal cancer screening (colonoscopy 10 years, sigmoidoscopy 5 years, Cologuard 3 years, stool sample 1 year) --- Never done Hepatitis B vaccine (1 of 3 - Risk 3-dose series) --- Never done Mammogram 06/05/2022 06/05/2023 Zoster (Shingles) Vaccine (2 of 2) 04/22/2023 06/17/2023 COVID-19 Vaccine ( season) 2022 07/02/2023 Urine albumin/creatinine test 11/04/2022 11/04/2023 ANEMIA MONITORING 09/05/2022 09/05/2023 A1C blood sugar test 04/22/2023 10/22/2023 Kidney Function Test 07/02/2023 12/31/2023 Diabetic Foot Exam 04/22/2023 04/22/2024 PARATHYROID HORMONE MONITORING (KIDNEY DISEASE) 04/22/2023 04/22/2024 Yearly thyroid level check 04/22/2023 04/22/2024 Diabetic Eye Exam 06/08/2023 06/08/2024 PHOSPHORUS MONITORING 07/02/2023 07/02/2024 Discussion about referral to kidney specialist 07/02/2023 07/02/2024 Lipid (cholesterol) disorder screening 11/04/2022 11/04/2027 Diphtheria, tetanus & pertussis vaccines (2 - Td or Tdap) 11/04/2022 11/04/2032 As you look over the recommended services, be sure to check with your insurance company to determine what's covered. [employer] is a great tool that helps you review your medical record online, including test results, doctor notes and your health summary. You can also schedule appointments with me and other members of your care team, request prescription refills and ask for advice related to your medical conditions at [email or web address] documented in this encounter Progress Notes * Autumn Preciado RN - 08/31/2023 1:43 PM EDT AD8 Dementia Screening Interview Person answering questions: patient Remember, "Yes, a change" indicates that there has been a change in the last several years caused by cognitive (thinking and memory) problems 1. Problems with judgement (eg: problems making decisions, bad financial decisions, problems with thinking). No (0) 2. Less interest in hobbies/activities. No (0) 3. Repeats the same things over and over (questions, stories, or statements). No (0) 4. Trouble learning how to use a tool, appliance, or gadget (eg: VCR, computer, microwave, remote control). No (0) 5. Forgets correct month or year. No (0) 6. Trouble handling complicated financial affairs (eg: balancing checkbook, income taxes, paying bills). No (0) 7. Trouble remembering appointments. No (0) 8. Daily problems with thinking and/or memory. No (0) TOTAL AD8: 0 - AD8 Dementia Screening Score The final score is a sum of the number items marked "Yes, A Change". 0 - 1: Normal cognition; 2 or greater: Cognitive impairments is likely to be present - further testing required Adult Annual Wellness Visit: Poppy Mars is a 73 year old female who presents for an Adult Annual Wellness Visit. Depression Screening: Did the patient complete the screening questionnaire for Depression? Yes Is the patient's total score for Depression 15 or greater? No, no further intervention needed, unless requested by patient. Did the patient answer positively to the suicide question? No, no further intervention needed, unless requested by patient. In general, compared to other people your age, what would you say that your health is? Poor Ht Readings from Last 1 Encounters: 08/31/23 1.378 m (4' 6.25") Wt Readings from Last 1 Encounters: 09/09/23 49.7 kg (109 lb 9.6 oz) Body Mass Index: BMI Less than 30 Body mass index is 26.47 kg/m. BP Readings from Last 1 Encounters: 09/09/23 148/74 Medical/Surgical/Family History Reviewed: Yes Past Medical History: Diagnosis Date Breast cancer ([facility]) 2000 right breast Ductal CA Dyslipidemia, goal LDL below 130 Family history of breast cancer in mother 10/23/2022 HTN, goal below 140/90 Hypothyroidism Kidney disease, chronic, stage IV (GFR 15-29 ml/min) ([facility]) 12/04/2021 Other chronic sinusitis 10/23/2022 Personal history of malignant neoplasm of breast 04/24/2022 2000 Retinopathy of left eye 05/05/2023 severe Seizure disorder ([facility]) dx 2005, follows w/Dr. Sheldon, stable on topamax Type 2 diabetes mellitus ([facility]) Type 2 diabetes mellitus with hemoglobin A1c goal of less than 8.0% ([facility]) 01/07/2017 Past Surgical History: Procedure Laterality Date CARDIAC CATHETERIZATION REPORT CATARACT SURGERY,COMPLEX Left 01/2017 Dr Turk COLONOSCOPY MASTECTOMY, PARTIAL Right 2000 MISCELLANEOUS ORDER ([facility] ONLY) Right lumpectomy breast REMOVAL OF OVARY(S) 1975 TOTAL ABD HYSTERECTOMY W/WO REMOVAL OF TUBE(S) Family History Problem Relation Age of Onset Breast Cancer Mother 66 Other (Other) Father back surgery Heart Disorder Father [place], passed at 63 Addiction problem Sister both sisters in [place]. Other (ckd) Sister Addiction problem Sister Lung cancer Brother 50 Heart Disorder Grandmother (Maternal) [place] Heart Disorder Grandmother (Paternal) "Dropsy" Heart Disorder Grandfather (Paternal) [place] Has patient ever had cancer? History of cancer, type: ductal breast ca and location: right breat Social History Tobacco Use Smoking status: Never Passive exposure: Past Smokeless tobacco: Never Substance Use Topics Alcohol use: Not Currently Comment: rare, at weddings Vaping/E-Cigarette Use Vaping/E-Cigarette Use Never User Vaping/E-Cigarette Substances Vaping/E-Cigarette Devices Tobacco/Alcohol screening completed today? Yes Hospital Care: Admissions (within the last year): Not Applicable ER within 30 days: No Does the patient have an Advance Directives/Living Will? Yes Last Physical Exam: Last physical exam: 08/06/2023 Does patient see primary provider regularly? Yes Does patient see other providers? Yes, Specialist Patient Care Team updated? Yes Review of patient's allergies indicates: Allergen Reactions Midazolam Neuro complications (Please comment) confusion Baclofen Neuro complications (Please comment) confusion Fentanyl Lamictal [Lamotrigine] Dilantin [Phenytoin Sodium Extended] Itching Immunization History Administered Date(s) Administered COVID-19 mRNA, LNP-s, No Preserve, 2-Dose Series (Bottle) 01/15/2021, 02/05/2021 COVID-19, LNP-s, No Preserve, [place]ito-sucrose, Ages 12+ (Pfizer) 05/20/2022 Pneumococcal Conjugate Vacc, 13 Valent (Prevnar) 09/21/2014 Pneumococcal Conjugate Vaccine, 7 Valent 11/01/2013 Pneumococcal Polysaccharide PPV23 (Pneumovax) 11/01/2005, 01/07/2017 Seasonal Influenza Virus Vaccine, Unspecified Formulation 08/16/2012, 08/16/2014, 09/13/2015, 08/24/2016 Seasonal Influenza, Quadrivalent Hd (Fluzone Hd) 10/09/2022, 07/15/2023 Seasonal Influenza, Quadrivalent, No Preserve, IM 09/09/2016 Seasonal Influenza, Trivalent, High Dose, No Preserve, IM 08/28/2019 TDAP (age 10 and older)(Boostrix) 11/04/2022 Zoster Vaccine Recombinant (Shingrix) 04/22/2023 Current Outpatient Medications Medication Sig Dispense Refill Aspirin 81 MG Tablet Take 1 Tablet by mouth in the morning. topiramate (TOPAMAX) 200 MG Tablet Take 1 Tab by mouth 2 times a day. 60 Tab 5 Zinc 50 MG Oral Tablet Take 1 Tablet by mouth in the morning. Vitamin D3 50 MCG (1999 UT) Oral Capsule Take 1 Capsule by mouth in the morning. Acetaminophen 500 MG Oral Tablet Take 2 Tablets by mouth at bedtime. Claritin-D 12 Hour 5-120 MG Tablet Extended Release 12 Hour (loratadine- pseudoephedrine ER 5-120 mgper tab) Take 1 Tablet by mouth in the morning and 1 Tablet before bedtime. Methocarbamol 500 MG Oral Tablet [...] at bedtime.) 60 Blister Dosing Unit 2 Calcium Carbonate Antacid 500 MG Oral Tablet Chewable Take 1 Tablet by mouth as needed for Heartburn. Atenolol 50 MG Oral Tablet (Tenormin) Take 1 Tablet by mouth in the morning. 90 Tablet 3 Albuterol Sulfate HFA 108 (90 Base) MCG/ACT Inhalation Aerosol Solution Inhale 2 Puffs by mouth every 6 hours as needed (cough/wheeze). 18 g 3 Empagliflozin 10 MG Oral Tablet (Jardiance) Take 1 Tablet by mouth in the morning. 30 Tablet 2 Sodium Bicarbonate 650 MG Oral Tablet Take 1 Tablet by mouth in the morning and 1 Tablet before bedtime. 180 Tablet 3 LORazepam 1 MG Oral Tablet (Ativan) Use 1/2 a tablet by mouth as needed for sleep. 15 Tablet 0 Afrin Nasal [place] 0.05 % Nasal Solution (oxymetazoline) Administer 2 Sprays into nostril in the morning and 2 Sprays before bedtime. (Patient not taking: Reported on 07/22/2023) Ondansetron HCl 4 MG Oral Tablet Take by mouth 1 Tablet every 8 hours as needed for Nausea. 20 Tablet 0 Sertraline HCl 25 MG Oral Tablet (Zoloft) Take 1 Tablet by mouth in the morning. 30 Tablet 5 Current Facility-Administered Medications Medication Dose Route Frequency Provider Last Rate Last Admin Albuterol Sulfate (Proventil) (2.5 MG/3ML) 0.083% inhalation solution 2.5 mg 2.5 mg Nebulizer Once PRN Lowell Rodriguez MD Patient Active Problem List Diagnosis Code Type 2 diabetes mellitus with hemoglobin A1c goal of less than 8.0% ([facility]) E11.9 HTN, goal below 140/90 I10 Dyslipidemia, goal LDL below 100 E78.5 Hypothyroidism E03.9 Seizure disorder ([facility]) G40.909 Well adult exam Z00.00 Localization-related symptomatic epilepsy and epileptic syndromes with complex partial seizures, not intractable, without status epilepticus ([facility]) G40.209 Kidney disease, chronic, stage IV (GFR 15-29 ml/min) ([facility]) N18.4 Personal history of malignant neoplasm of breast Z85.3 Benign breast cyst in female, left N60.02 Type 2 diabetes mellitus with stage 4 chronic kidney disease, without long-term current use of insulin ([facility]) E11.22, N18.4 Other chronic sinusitis J32.8 Family history of breast cancer in mother Z80.3 Moderate persistent asthma without complication J45.40 Hypertensive kidney disease with chronic kidney disease stage IV ([facility]) I12.9, N18.4 Medication Compliance: Patient is able to obtain all of her medications? Yes Patient takes medications as prescribed? Yes Patient manages own medications: Yes Patient uses a pill box? No Dental Exam: hasn't gone for years Eye Screening: Yes: Every 3 months Are you having trouble with hearing? No Do you use an assistive device to help your hearing? No Exercise Screening: only the exercise associated with activities at work Nutrition Assessment: Eats a balanced diet and eat 2-3 meals a day Pain Screening: Are you having any pain? No Sleep Screening Tool 'STOP': Do you snore? Yes Do you feel fatigued during the day? Yes-sometimes Do you wake up feeling like you haven't slept? Yes sometimes Have you been told you stop breathing at night? No Do you gasp for air or choke while sleeping? No Have you been told you have Sleep Apnea? No Do you have high blood pressure or are on medication(s) to control high blood pressure? Yes SCORE: If you check YES to two or more questions, make a referral for Obstructive Sleep Apnea Declines need for sleep study at this time Patient and Caregiver Support System: Patient lives with children Means of Transportation: Drives. Not a concern. Patient lives in multi level house with 7 steps between levels-has hand rails on both sides of all the steps Community Resources: Not Applicable Functional Status and ADL Skills: Has patient ever had an amputation? No Functional Assessment: 80- Normal activity with effort: some symptoms of disease Ambulation: Patient ambulates without assistive device. Independent Dressing: Gets clothes and dresses without any assistance: Independent Able to move freely in chair or bed including turning over: Independent Repositioning (bed or chair): Not applicable Transfers: Independent Toileting: Goes to bathroom, uses toilet, arranges clothes and returns without any assistance: Independent Toileting: continent of bladder and continent of bowel-some urinary leakage Feeding: Self Bathing: Self; baths, non skid strips in tub, step out onto a mat/rug Requires none assistance with ADLs. Instrumental ADL's: Shopping: Independent Housekeeping: Independent Handling Finances: Independent DME Vendor Name: Not Applicable Fall Risk Assessment: Can the patient demonstrate that she can stand from a sitting position? Yes Has the patient had a fall within the last 6 months? No Does the patient have a problem with her gait or balance? No Does the patient take 4 or more prescription medicines? Yes Does the patient use sedatives or narcotics? Yes Fall Risk Factors Present: Uses more than 4 medications Uses assistive devices Older than age 70 Iao-Fc-jnm-Go Test: Time began at 1:00. Patient stood from sitting position and walked approximately 10 feet, returned and sat down. Total time for pus-sk-mbo-go test was 8 seconds. Oud-Lm-sdm-Go Test completed? Yes Gender Specific Preventative Plan: Health Maintenance Topic Date Due Colorectal Cancer Screening Never done Hepatitis B (1 of 3 - Risk 3-dose series) Never done Mammogram 06/05/2023 Zoster Vaccines (2 of 2) 06/17/2023 COVID-19 Vaccine ( - season) 2023 Hgb 09/05/2023 Albumin/Creatinine Ratio 11/04/2023 HbA1c 03/09/2024 GFR 03/09/2024 Diabetic Foot Exam 04/22/2024 TSH 04/22/2024 Diabetic Eye Exam 06/08/2024 Nephrology Referral 07/02/2024 Depression Screening 08/31/2024 Phosphate 09/09/2024 PTH 09/09/2024 Lipid Panel 11/04/2027 DTaP,Tdap,and Td Vaccines (2 - Td or Tdap) 11/04/2032 Influenza Vaccine (FLU shot) Completed Pneumococcal Vaccine: 65+ Years Completed MENINGOCOCCAL (MENACTRA/MENVEO) Aged Out GARDASIL-HPV IMMUNIZATION SERIES Aged Out Follow Up/ Referrals/Handouts: No further action needed Routine general medical examination at a health care facility (Primary) Benign breast cyst in female, left Personal history of malignant neoplasm of breast Pt's last mammogram 05/19/22, diagnostic left 06/05/22-repeat 1 year. Mammogram ordered 04/22/23-pt states she will schedule on her way out. Dyslipidemia, goal LDL below 100 Lab Results Component Value Date/Time LDL CHOLESTEROL (CALCULATED) - [facility] 83 11/04/2022 01:06 PM Continue to monitor diet/exercise and current medication HTN, goal below 140/90 Hypertensive kidney disease with chronic kidney disease stage IV ([facility]) BP Readings from Last 3 Encounters: 09/09/23 148/74 08/31/23 140/72 08/06/23 152/72 Continue to monitor and with current medication Hypothyroidism TSH Results: Lab Results Component Value Date/Time TSH - [facility] 1.80 04/22/2023 01:04 PM TSH - [facility] 2.99 05/20/2022 09:59 AM TSH - [facility] 0.712 06/15/2020 12:00 AM Continue to monitor and with current medication Kidney disease, chronic, stage IV (GFR 15-29 ml/min) ([facility]) Continue to monitor and with current medication. Continue to follow with nephrology Localization-related symptomatic epilepsy and epileptic syndromes with complex partial seizures, not intractable, without status epilepticus ([facility]) Seizure disorder ([facility]) Continue to monitor and follow with neurology. Moderate persistent asthma without complication Continue to monitor and with current medication Type 2 diabetes mellitus with hemoglobin A1c goal of less than 8.0% ([facility]) Type 2 diabetes mellitus with stage 4 chronic kidney disease, without long-term current use of insulin ([facility]) Hemoglobin AIC Results: Lab Results Component Value Date/Time HEMOGLOBIN A1C - [facility] 8.3 (H) 09/09/2023 10:00 AM HEMOGLOBIN A1C - [facility] 7.4 (H) 04/22/2023 02:15 PM HEMOGLOBIN A1C - [facility] 7.1 (H) 11/04/2022 01:06 PM Continue to monitor diet and with current medication Pt has both covid vaccine and 1 booster-already updated in her immunization record. Declines further vaccines at this time. Colonoscopy-pt states she had one done at [facility] and is good for 1 more year Pt declines shingrix #2 at this time Discussed bringing in a copy of her living will to have scanned into her chart. Pt requests refill for jardiance-rx pended in other encounter and sent to pcp. Discussed importance of following with dentist. Follow Up: Return in 1 year (on 08/31/2024) for 12 month Subsequent Adult Wellness Visit. | For: 12month Subsequent Adult Wellness Visit | Check-out note: 12 month Subsequent Adult Wellness Visit Would patient like to schedule next AWV visit? Yes Autumn Preciado RN documented in this encounter Miscellaneous Notes * Pt Handout (on AVS) - Autumn Preciado RN - 08/31/2023 1:47 PM EDT Images from the original note were not included. [id number] Preventing Falls: Making Changes in Your Living Space Is your living space filled with hazards that could cause you to fall? Changes can make you safer. They could even save your life. Take a careful look around your home. Change what you can on your own. Hire someone or ask friends or family to help with harder tasks. Be sure to add a nonslip mat to the inside of your shower or bathtub. Always keep a nightlight on. Keep a clear path from your bed to the bathroom. Move items from higher shelves to lower ones. Remove hazards Remove things that can trip you, like throw rugs, boxes, piles of paper, or cords. Nail down rugs or carpeting if you don't want to remove them. Use slip- resistant backing. Don't store items on stairs. Keep walkways clear. Clean up spills right away. Replace glass tables with wooden ones. They're safer if you fall. Add safety devices Add handrails to both sides of stairs. Buy a raised toilet seat. Add grab bars near the toilet and in the shower. Get grabbers to help you reach things and avoid climbing. Improve lighting Add nightlights to halls, bedrooms, and bathrooms. Put light switches at the top and bottom of stairs. Be sure each room and flight of stairs has proper lighting. Use shades or curtains to cut glare from windows. Put flashlights in each room. Replace burned-out bulbs. Get glowing light switches for room entrances. Take other precautions Use nonskid floor wax. Buy a nonslip mat and a liquid soap dispenser for the shower. Put most-used items within easy reach. Add bright paint or tape on the top front edge of steps. Save big jobs, such as moving furniture or other heavy objects, for family or friends. Get professional help installing grab bars. They can be unsafe if not installed the right way. Fix riskier rooms first Don't tackle everything at once. Focus on one room at a time. The bathroom is a common spot for falls, so you may want to start there. Or start with a room you spend lots of time in, such as your bedroom. Make only a few changes at once. This will give you time to adjust to them. Outside safety You might arrange for these changes yourself, or you might need to talk to your street and building decorator [employer] about them. Have loose boards on porches or damaged stairs repaired. Have rough edges, holes, or large cracks in sidewalks or driveways repaired. Remove hazards that could trip you, such as hoses or sony. Use high-wattage light bulbs (100 falk or greater) near outside doors and stairs. Add handrails to outside stairs. Have them extend beyond the bottom step. Get help in winter weather with ice or snow removal. Last Reviewed Date: 10/01/202219999728-7356 [employer]. All rights reserved. This information is not intended as a substitute for professional medical care. Always follow your healthcare professional's instructions. * Pt Handout (on AVS) - Autumn Preciado RN - 08/31/2023 1:47 PM EDT [id number] Fall Prevention Falls often take place due to slipping, tripping, or losing your balance. Millions of people fall every year and injure themselves. Among older adults in the [place] falls are the most common cause of traumatic brain injuries. Every 20 minutes, an older adult dies from a fall. Here are ways to reduceyour risk of falling again: Think about your fall. Was there anything that caused your fall that can be fixed, removed, or replaced? Make your home safe by keeping walkways clear of objects you may trip over, such as electrical cords. Use nonslip pads under rugs. Don't use area rugs or small throw rugs. Use nonslip mats in bathtubs and showers. Hang grab rails by the toilet and inside and outside the shower. Install handrails and lights on staircases. The handrails should be on both sides of the stairs. Use night lights. Don't walk in poorly lit areas. Don't stand on chairs or wobbly ladders. Use care when reaching overhead or looking up. This position can cause a loss of balance. Be sure your shoes fit well, are in good condition, and have nonslip bottoms. Wear shoes both inside and outside of your home. Don't go barefoot or wear slippers. Be cautious when going up and down stairs, curbs, and when walking on uneven sidewalks. If your balance is poor, consider using a cane or walker. Talk with your healthcare provider about having a balance assessment. If your fall was related to alcohol use, stop or limit alcohol intake. Ask your provider for help if you think you may overuse alcohol and can't stop. If your fall was related to use of sleeping medicines, talk with your provider about this. You may need to reduce your dosage at bedtime if you wake up during the night to go to the bathroom. To reduce the need for nighttime bathroom trips: o Don't drink fluids for several hours before going to bed o Empty your bladder before going to bed o Men can keep a urinal at the bedside Stay as active as you can. Balance, flexibility, strength, and endurance all come from exercise.They all play a role in preventing falls. Ask your provider which types of activity are right for you. Try to do some type of exercise every day. Get your eyes checked once a year or more often if your vision changes If you have pets, know where they are before you stand up or walk so you don't trip over them. Go over all your medicines with a pharmacist or other provider. This is to see if any of them could make you more likely to fall. Have this type of medicine review at least once every year. If your provider advises a new medicine, ask if the side effects will affect your balance. Don't move quickly from one position to another. For instance, don't stand up fast from sitting.This can cause dizziness and may lead to a fall. Sit down when putting on pants, socks, and shoes. This will make you less likely to lose your balance and fall. Always let your provider know if you have fallen since your last visit. Contact your provider right away if you're having balance problems or falling more often. Last Reviewed Date: 11/01/202119991650-7105 [employer]. All rights reserved. This information is not intended as a substitute for professional medical care. Always follow your healthcare professional's instructions. documented in this encounter Plan of Treatment Upcoming Encounters Date Type Department Care Team (Late st Contact Info) Description 09/21/2023 1:00 PM EST Office Visit Family Practice 65 [facility], [place] [address] [facility] [place] [place] [address] Bozena De DO 293 [facility], [place] [address] 09/28/2023 11:15 AM EST Office Visit Dermatology [facility] [address] [place] [address] [place] [address] Ambrocio Ramos MD [address] [place] [address] 09/28/2023 3:00 PM EST Cardiac Studies Cardiac Studies, [facility] [address] [place] [address] 10/28/2023 2:40 PM EST Office Visit Nephrology, [facility] 200 [facility] [place] [address] Nathaly Bone MD [address] [place] [address] 08/31/2024 2:00 PM EDT Nurse Only Ancillary 65 [facility] [address] [facility] [place] [address] College, Nurse Annual Wellness Visit 65 [facility] [address] [facility] [place] [address] Health Maintenance Due Date Last Done Comments [...] as of this encounter Visit Diagnoses Diagnosis Routine general medical examination at a health care facility- Primary Benign breast cyst in female, left Dyslipidemia, goal LDL below 100 Other and unspecified hyperlipidemia HTN, goal below 140/90 Unspecified essential hypertension Hypertensive kidney disease with chronic kidney disease stage IV (HCC) Unspecified hypertensive kidney disease with chronic kidney disease stage I through stage IV, or unspecified Hypothyroidism Unspecified hypothyroidism Kidney disease, chronic, stage IV (GFR 15-29 ml/min) (HCC) Chronic kidney disease, Stage IV (severe) Localization-related symptomatic epilepsy and epileptic syndromes with complex partial seizures, not intractable, without status epilepticus (HCC) Localization-related (focal) (partial) epilepsy and epileptic syndromes with complex partial seizures, without mention of intractable epilepsy Moderate persistent asthma without complication Unspecified asthma Personal history of malignant neoplasm of breast Seizure disorder (HCC) Unspecified epilepsy without mention of intractable epilepsy Type 2 diabetes mellitus with hemoglobin A1c goal of less than 8.0% (HCC) Type 2 diabetes mellitus with stage 4 chronic kidney disease, without long-term current use of insulin (HCC) documented in this encounter Care Teams [employer] Relationship Specialty Start Date End Date Bozena De DO [address] [place] [address] PCP - General Family Medicine 04/22/23 documented as of this encounter
--- OUTSIDE RECORDS SUMMARY | 2023-11-10 12:11 | External Medical Summary | Summary of Care ---
Author Name Unknown Organization [facility] Address [address] [facility] [place] [place] [address] Phone [phone] Care Team Providers Care Activities Assistant Name Role Phone Bozena De DO Primary Care Provider + [phone] Reason for Visit * Reason Comments Blood Pressure Check Encounter Details Date Type Department Care Team (Late st Contact Info) Description 09/09/2023 9:00 AM EST Nurse Only Nephrology, [facility] 200 [place] [address] Sp, Nurse Nephrology 200 [place] [address] Blood Pressure Check Allergies Active Allergy Reactions Criticality Noted Date Comments Baclofen Neuro complications (Please comment) 08/18/2022 confusion Phenytoin Sodium Extended Itching Low 01/07/2017 Fentanyl 04/24/2022 Lamotrigine 01/07/2017 Midazolam Neuro complications (Please comment) High 08/18/2022 confusion documented as of this encounter (statuses as of 09/09/2023) Medications Medication Sig Dispensed Refills Start Date End Date Status Aspirin 81 MG Tablet Take 1 Tablet by mouth in the morning. 0 Active topiramate (TOPAMAX) 200 MG Tablet Take 1 Tab by mouth 2 times a day. 60 Tab 5 01/09/2017 Active Zinc 50 MG Oral Tablet Take 1 Tablet by mouth in the morning. 0 Active Vitamin D3 50 MCG (2000 UT) [...] Tablet before bedtime. 0 Active Afrin Nasal [place] 0.05 % Nasal Solution (oxymetazoline) Administer 2 [...] needed (cough/wheeze). 18 g 3 04/22/2023 Active Empagliflozin 10 MG Oral Tablet (Jardiance)Indicat ions:Type 2 diabetes mellitus with hemoglobin A1c goal of less than 8.0% ([facility]) Take 1 Tablet by mouth in the morning. 30 Tablet 2 06/04/2023 Active Sodium Bicarbonate 650 MG Oral TabletIndications: Kidney disease, chronic, stage IV (GFR 15-29 ml/min) ([facility]) Take 1 Tablet by mouth in the morning and 1 Tablet before bedtime. 180 Tablet 3 07/13/2023 Active LORazepam 1 MG Oral Tablet (Ativan)Indication s:Insomnia, unspecified type Use 1/2 a tablet by mouth as needed for sleep. 15 Tablet 0 08/06/2023 Active Sertraline HCl 25 MG Oral Tablet (Zoloft)Indication s:ROSANA (generalized anxiety disorder),Moderate major depression ([facility]) Take 1 Tablet by mouth in the morning. 30 Tablet 5 08/06/2023 Active Hospital, Clinic, or Other Facility Administered Medication Ordered Dose Route Frequency Start Date End Date Status Albuterol Sulfate (Proventil) (2.5 MG/3ML) 0.083% inhalation solution 2.5 mgIndications:Moderate persistent asthma without complication 2.5 mg NEBULIZER ONCE PRN 11/04/2022 11/04/2023 Acti ve documented as of this encounter (statuses as of 09/09/2023) Active Problems Problem Noted Date Diagnosed Date [...] any underlying obstruction [facility] in past . Cards-saw Dr Live in [...] as of this encounter (statuses as of 09/09/2023) Immunizations Name Administration Dates Next Due COVID-19 [...] Sign Reading Time Taken Comments Blood Pressure 148/74 09/09/2023 9:59 AM EST Pulse - - Temperature - - Respiratory Rate - - Oxygen Saturation - - Inhaled Oxygen Concentration - - Weight 49.7 kg (109 lb 9.6 oz) 09/09/2023 9:59 A M EST Height - - Body Mass Index 26.18 08/31/2023 1:40 PM EDT documented in this encounter Nursing Notes * Polly Dc LPN - 09/09/2023 10:00 AM EST Pt came in today to have her remote bp monitor([place]) validated. The cuff she received is very small. It is for arm size 15-24cm. Pts arm measured at 31cm. As soon as cuff started to inflate it started to open. Reading was 208/80. Pts bp with our office cuff was 148/74. Weight today was 109.6lb TE to CKD rn case manager to make aware of cuff size issue. documented in this encounter Plan of Treatment Upcoming Encounters Date Type Department Care Team (Late st Contact Info) Description 09/21/2023 1:00 PM EST Office Visit Family Practice [address] [facility] [place] [address] [place] [address] Bozena De DO 293 [place] [address] 09/28/2023 11:15 AM EST Office Visit Dermatology [facility] 200 [place] [address] Ambrocio Ramos MD 200 [place] [address] 09/28/2023 3:00 PM EST Cardiac Studies Cardiac Studies, [facility] [address] [place] [address] 10/28/2023 2:40 PM EST Office Visit Nephrology, [facility] 200 [place] [address] Nathaly Bone MD [address] [place] [address] 08/31/2024 2:00 PM EDT Nurse Only Ancillary 65 [facility] 293 [place] [address] College, Nurse Annual Wellness Visit [address] [address] Health Maintenance Due Date Last Done Comments Cologuard 1994 Colonoscopy 1994 Colorectal Cancer Screening 1994 Fecal Occult Blood Test 1994 Sigmoidoscopy 1994 Hepatitis B (1 of 3 - Risk 3-dose series) 2009 Mammogram 06/05/2023 06/05/2022, 05/19/2022 Zoster Vaccines (2 of 2) 06/17/2023 04/22/2023 COVID-19 Vaccine ( season) 2023 05/20/2022, 02/05/2021, 01/15/2021 Hgb 09/05/2023 09/05/2022, 08/03/2020, 02/25/2001 HbA1c 10/22/2023 04/22/2023, 010 01/2023, 05/20/2022, Additional history exists Albumin/Creatinine Ratio 11/04/2023 11/04/2022, 02/0 12/2021 GFR 12/31/2023 07/02/2023, 0911/2022, 04/22/2023, Additional history exists Diabetic Foot Exam 04/22/2024 04/22/2023 PTH 04/22/2024 04/22/2023 TSH 04/22/2024 04/22/2023, 07/2 , 06/15/2020 Diabetic Eye Exam 06/08/2024 06/08/2023, , 12/24/2021 Nephrology Referral 07/02/2024 07/02/2023 Phosphate 07/02/2024 07/02/2023, 04/22/2023 Depression Screening 08/31/2024 08/31/2023 Lipid Panel 11/04/2027 11/04/2022, 12/03/2021 DTaP,Tdap,and Td [...] filedocumented as of this encounter Care Teams Activities Assistant Relationship Specialty Start Date End Date Bozena De DO [address] [place] [address] PCP - General Family Medicine 04/22/23 documented as of this encounter
--- OUTSIDE RECORDS SUMMARY | 2023-11-10 12:11 | External Medical Summary ---
Author Name Unknown Address Unknown Organization K09:[facility] [place] [address] Laboratory Report Ordering Provider Test Date Status DAVEPRAVIN 09/09/2023 10:00:50 Final Observation Date Value Abnormality Reference (Units ) Status BUN 09/09/2023 10:00:50 33 Above high normal 6-20 (mg/dL) Final Creatinine 09/09/2023 10:00:50 2.0 Above high normal 0.5-1.0 (mg/dL) Final Glomerular filtration rate/1.73 sq M.predicted [Volume Rate/Area] in Serum, Plasma or Blood by Creatinine-based formula (CKD-EPI) 09/09/2023 10:00:50 27 Below low normal >=60 (mL/min) Final eGFR is calculated based on the CKD-EPI 2020 equation SODIUM 09/09/2023 10:00:50 140 135-146 (m mol/L) Final Potassium 09/09/2023 10:00:50 4.2 3.5-5.1 (m mol/L) Final Cl 09/09/2023 10:00:50 104 98-107 (mm ol/L) Final CO2 09/09/2023 10:00:50 25 22-32 (mmo l/L) Final Anion gap 09/09/2023 10:00:50 11 7-15 (mmol /L) Final Glucose 09/09/2023 10:00:50 251 Above high normal 70 -120 (mg/dL) Final Calcium 09/09/2023 10:00:50 9.2 8.4-10.2 ( mg/dL) Final Performing Location [facility] [place] [address]
--- OUTSIDE RECORDS SUMMARY | 2023-11-10 12:11 | External Medical Summary | Summary of Care ---
Author Name Unknown Organization [facility] Address [address] [place] [address] Phone [phone] Care Team Providers Care Automatic Pad Making Machine Operator Name Role Phone Bozena De DO Primary Care Provider + [phone] Reason for Visit * Reason Onset Date Comments case management 09/06/2023 CKD CM pt concer n Encounter Details Date Type Department Care Team (Late st Contact Info) Description 09/06/2023 Telephone Care Coordination [address] [place], [place] [id number] Emily Quintanilla, YULIA [address] [place], [place] [phone] case management (CKD CM pt concern) Allergies Active Allergy Reactions Criticality Noted Date Comments Baclofen Neuro complications (Please comment) 08/18/2022 confusion Phenytoin Sodium Extended Itching Low 01/07/2017 Fentanyl 04/24/2022 Lamotrigine 01/07/2017 Midazolam Neuro complications (Please comment) High 08/18/2022 confusion documented as of this encounter (statuses as of 09/07/2023) Medications Medication Sig Dispensed Refills Start Date [...] Tablet before bedtime. 0 Active Afrin Nasal Holder 0.05 % Nasal Solution (oxymetazoline) Administer 2 [...] A1c goal of less than 8.0% ([facility]) Take 1 Tablet by mouth in the morning. 30 Tablet 2 06/04/2023 Active Sodium Bicarbonate 650 MG Oral TabletIndications: Kidney disease, chronic, stage IV (GFR 15-29 ml/min) ([facility]) Take 1 Tablet by mouth in the morning and 1 Tablet before bedtime. 180 Tablet 3 07/13/2023 Active LORazepam 1 MG Oral Tablet (Ativan)Indication s:Insomnia, unspecified type Use 1/2 a tablet by mouth as needed for sleep. 15 Tablet 0 08/06/2023 Active Sertraline HCl 25 MG Oral Tablet (Zoloft)Indication s:ROSANA (generalized anxiety disorder),Moderate major depression ([facility]) Take 1 Tablet by mouth in the morning. 30 Tablet 5 08/06/2023 Active Hospital, Clinic, or Other Facility Administered Medication Ordered Dose Route Frequency Start Date End Date Status Albuterol Sulfate (Proventil) (2.5 MG/3ML) 0.083% inhalation solution 2.5 mgIndications:Moderate persistent asthma without complication 2.5 mg NEBULIZER ONCE PRN 11/04/2022 11/04/2023 Acti ve documented as of this encounter (statuses as of 09/07/2023) Active Problems Problem Noted Date Diagnosed Date [...] suboptimal and may underestimate any underlying obstruction [facility] in past . Cards-saw Dr Live [...] as of this encounter (statuses as of 09/07/2023) Immunizations Name Administration Dates Next Due COVID-19 [...] Telephone Encounter - Prudence Hudson RN - 09/07/2023 3:10 PM EST Te with pt regarding follow up visit for bp cuff validation and weight check. Aware to repeat bloodtest tomorrow. * Telephone Encounter - Mandy Rao MD - 09/07/2023 1:53 PM EST She had an ECG in July which was abnormal in this patient with history of pediatric cardiologyissues. Not currently following with Cardiology: Plan was for TTE but I do not see that this was scheduled. Weight at July office visit 111.5 and 111 lb in April. Now patient reporting increased swelling and some muscle cramps. Renal nurse: -please order TTE -NV for -BP and wt check -repeat bmp -please validate cuff she was to have received through [employer] -3 day bp log CKD CM fyi * Telephone Encounter - Emily Quintanilla RN - 09/06/2023 2:07 PM EST CKD CM pt returned call Spoke with pt, updated on [employer] information that was obtained. Pt took phone number and information. Pt reports that she has noticed increased edema to her hands and feet. Ring is tighter and shoes are also tighter. She feels like her legs are getting heavier. Wt is 111.5# on home scale. She also reports that her hands and feet are getting more cramping, especially noted at bedtime. Pt reports that she has trouble sleeping, does not take ativan at HS, last taken a week ago. Worried that she will become addicted. She said she is able to get to sleep but then wakes and is unable to go back to sleep because her mind races. Discussed relaxation techniques and maybe breaking 1/2 ativan to 1/4 as she is concerned that if she takes 1/2 at 1 or 2 am, she will be sleepy all day. Pt denies any other concerns. Plan; will send message to providers re: edema and f/u with goal review next week. Any recommendations? Please advise. Emily Quintanilla RN Kidney Transitions Specialist CKD Supervisor Microwave documented in this encounter Plan of Treatment Upcoming Encounters Date Type Department Care Team (Late st Contact Info) Description 09/08/2023 12:00 PM EST Nurse Only Nephrology, [facility] 200 [place] [address] Sp, Nurse Nephrology 200 [place] [address] 09/21/2023 1:00 PM EST Office Visit Family Practice [address] [place] [address] 293 [place] [address] Bozena De DO 293 [place] [address] 09/28/2023 11:15 AM EST Office Visit Dermatology [facility] 200 [place] [address] Ambrocio Ramos MD 200 [place] [address] 09/28/2023 3:00 PM EST Cardiac Studies Cardiac Studies, [facility] [address] [place] [address] 10/28/2023 2:40 PM EST Office Visit Nephrology, [facility] 200 [facility] [place], [place] [address] Nathaly Bone MD [address] [place] [address] 08/31/2024 2:00 PM EDT Nurse Only Ancillary 65 [facility] 293 [place] [address] College, Nurse Annual Wellness Visit 65 [facility] [address] [place] [address] Scheduled Orders Name Type Priority Associated Diagnoses Orde r Schedule BASIC METABOLIC PANEL Lab Routine Hypertensive kidney disease with chronic kidney disease stage IV (HCC) Expected: 09/08/2023 (Approximate), Expires: 09/07/2024 Health Maintenance Due Date Last Done Comments Cologuard 1994 Colonoscopy 1994 Colorectal Cancer Screening 1994 Fecal Occult Blood Test 1994 Sigmoidoscopy 1994 Hepatitis B (1 of 3 - Risk 3-dose series) 2009 Mammogram 06/05/2023 06/05/2022, 05/19/2022 Zoster Vaccines (2 of 2) 06/17/2023 04/22/2023 COVID-19 Vaccine ( season) 2023 05/20/2022, 02/05/2021, 01/15/2021 Hgb 09/05/2023 09/05/2022, 06/01, 02/25/2001 HbA1c 10/22/2023 04/22/2023, 01/2023, 05/20/2022, Additional history exists Albumin/Creatinine Ratio 11/04/2023 11/04/2022, 020 12/2021 GFR 12/31/2023 07/02/2023, 090 11/2022, 04/22/2023, Additional history exists Diabetic Foot Exam 04/22/2024 04/22/2023 PTH 04/22/2024 04/22/2023 TSH 04/22/2024 04/22/2023, 07/, 06/15/2020 Diabetic Eye Exam 06/08/2024 06/08/2023, , [...] as of this encounter Visit Diagnoses Diagnosis Kidney disease, chronic, stage IV (GFR 15-29 ml/min) (HCC)- Primary Chronic kidney disease, Stage IV (severe) Hypertensive kidney disease with chronic kidney disease stage IV (HCC) Unspecified hypertensive kidney disease with chronic kidney disease stage I through stage IV, or unspecified documented in this encounter Care Teams Automatic Pad Making Machine Operator Relationship Specialty Start Date End Date Bozena De DO [address] [facility] [place] [address] PCP - General Family Medicine 04/22/23 documented as of this encounter
--- OUTSIDE RECORDS SUMMARY | 2023-11-10 12:11 | External Medical Summary | Summary of Care ---
Author Name Unknown Organization [facility] Address [address] [place] [address] Phone [phone] Care Team Providers Care Vocational Rehabilitation Consultant Name Role Phone Bozena De DO Primary Care Provider [phone] Reason for Visit * Reason Comments Follow Up Encounter Details Date Type Department Care Team Description 08/06/2023 Office Visit Family Practice [address] [facility] [place] [address] [place] [id number] Bozena De DO [address] [place], [place] [id number] Seizure disorder (HCC)*; Type 2 diabetes mellitus with hemoglobin A1c goal of less than 8.0% ([facility]); Kidney disease, chronic, stage IV (GFR 15-29 ml/min) ([facility]); ROSANA (generalized anxiety disorder); Moderate major depression ([facility]); Insomnia, unspecified type Allergies Active Allergy Reactions Severity Noted Date Comments Baclofen Neuro complications (Please comment) 08/18/2022 confusion Phenytoin Sodium Extended Itching Low 01/07/2017 Fentanyl 04/24/2022 Lamotrigine 01/07/2017 Midazolam Neuro complications (Please comment) High 08/18/2022 confusion documented as of this encounter (statuses as of 08/06/2023) Medications Medication Sig Dispensed Refills Start Date [...] Tablet before bedtime. 0 Active Afrin Nasal [place] 0.05 % Nasal Solution (oxymetazoline) Administer 2 [...] 04/22/2023 Active Empagliflozin 10 MG Oral Tablet (Jardiance)Indica tions:Type 2 diabetes mellitus with hemoglobin A1c goal of less than 8.0% ([facility]) Take 1 Tablet by mouth in the morning. 30 Tablet 2 06/04/2023 Active Sodium Bicarbonate 650 MG Oral TabletIndications :Kidney disease, chronic, stage IV (GFR 15-29 ml/min) ([facility]) Take 1 Tablet by mouth in the morning and 1 Tablet before bedtime. 180 Tablet 3 07/13/2023 Active LORazepam 1 MG Oral Tablet (Ativan)Indicatio ns:Insomnia, unspecified type Use 1/2 a tablet by mouth as needed for sleep. 15 Tablet 0 08/06/2023 Active Sertraline HCl 25 MG Oral Tablet (Zoloft)Indicatio ns:ROSANA (generalized anxiety disorder),Moderat e major depression ([facility]) Take 1 Tablet by mouth in the morning. 30 Tablet 5 08/06/2023 Active Escitalopram Oxalate 10 MG Oral Tablet (Lexapro) Take 1 Tablet (10 mg) by mouth in the morning. 90 Tablet 3 10/13/2022 3 Discontinue d(Medicatio n/Dose Changed) LORazepam 1 MG Oral Tablet (Ativan)Indicatio ns:Insomnia, unspecified type Use 1/2 a tablet by mouth as needed for sleep. 15 Tablet 0 05/28/2023 3 Discontinue d(Refill) Hospital, Clinic, or Other Facility Administered Medication Ordered Dose Route Frequency Start Date End Date Status Albuterol Sulfate (Proventil) (2.5 MG/3ML) 0.083% inhalation solution 2.5 mgIndications:Moderate persistent asthma without complication 2.5 mg NEBULIZER ONCE PRN 08/18/2022 08/18/2023 Acti ve Albuterol Sulfate (Proventil) (2.5 MG/3ML) 0.083% inhalation solution 2.5 mgIndications:Moderate persistent asthma without complication 2.5 mg NEBULIZER ONCE PRN 11/04/2022 11/04/2023 Acti ve documented as of this encounter (statuses as of 08/06/2023) Active Problems Problem Noted Date Hypertensive kidney disease with chronic kidney disease stage IV 02/12/2023 Moderate persistent asthma without compl ication 11/04/2022 Other chronic sinusitis 10/23/2022 Family history of breast cancer in mothe r 10/23/2022 Benign breast cyst in female, left 08/18 Type 2 diabetes mellitus wit h stage 4 chronic kidney disease, without long-term current use of insulin 08/18/2022 Personal history of malignant neoplasm o f breast 04/24/2022 Overview: 1999 Kidney disease, chronic, stage IV (GFR 1 5-29 ml/min) 12/04/2021 Seizure disorder 12/03/2021 Overview: dx 2005, follows w/Dr. Sheldon stable on topFosubo Well adult exam 12/03/2021 Overview: 10/22 PFTs -decreasedCONCLUSION: Spirogram is within acceptable limits. There is mild decrease in flow at the level of the small airways. Expiratory time is suboptimal and may underestimate any underlying obstruction [facility] in past . Cards-saw Dr Live in past. 08/21 considering sinus surg. Hx breast CA '13? Localization-related symptom atic epilepsy and epileptic syndromes with complex partial seizures, not intractable, without status epilepticus 12/03/2021 Dyslipidemia, goal LDL below 100 017 Hypothyroidism 01/09/2017 Type 2 diabetes mellitus with hemoglobin A1c goal of less than 8.0% 01/07/2017 HTN, goal below 140/90 01/07/2017 documented as of this encounter (statuses as of 08/06/2023) Immunizations Name Administration Dates Next Due COVID-19 mRNA, LNP-s, No Pre serve, 2-Dose Series (Yieldbot) 02/05/2021,01/15/2021 COVID-19, LNP-s, No Preserve , Torito-sucrose, Ages 12+ (Yieldbot) 05/20/2022 Pneumococcal Conjugate Vacc, 13 Valent (Prevnar) [...] oz pur e alcohol) rare, at weddings Food Insecurity Answer Date Recorded Within the past 12 months, y ou worried that your food would run out before you got money to buy more. Never true 08/06/2023 Within the past 12 months, t he food you bought just didn't last and you didn't have money to get more. Never true 08/06/2023 Sex Assigned at Date Recorded Female 02/24/2023 3:46 PM E DT Job Start Date Occupation Industry Not on file Not on file Not on file documented as of this encounter Last Filed Vital Signs Vital Sign Reading Time Taken Comments Blood Pressure 152/72 08/06/2023 3:57 PM EDT Pulse 66 08/06/2023 3:57 PM EDT Temperature 36.8 C (98.2 F) 08/06/2023 3:57 PM ED T Respiratory Rate - - Oxygen Saturation 97% 08/06/2023 3:57 PM EDT Inhaled Oxygen Concentration - - Weight 51.2 kg (112 lb 14.4 oz) 08/06/2023 3:57 PM EDT Height - - Body Mass Index 26 07/15/2023 2:10 PM EDT documented in this encounter Progress Notes * Autumn Preciado RN - 08/06/2023 5:28 PM EDT Mini mental completed * Bozena De, - 08/06/2023 3:53 PM EDT SUBJECTIVE: Chief Complaint Patient presents with Follow Up HPI: Poppy Mars is a 73 year old female who presents today for regular return. Pt missed over 1/2 of her appt today and did not show for last appt. Pt notes that she is thinking about having her lexapro increased. Pt notes that she is concerned about her son. She notes that she is worried about her kidney condition. She does not sleep well. She feels that her mind runs rapid at night. She continues to feel both anxious and depressed. Pt statesthat she is having "fits of dementia". She notes that she has difficulty remembering things. She notes that she will then remember it. She thinks her son could be playing head games. She notes he will tell her that he told her something. She does not believe that he has ever mentioned it to her. She does see Dr. Sheldon. Had recent imaging. Unclear what is more recent vs what is distant based off of what she is describing to me. Pt notes she is very overwhelmed with things at home. PHM: Patient Active Problem List Diagnosis Code Type 2 diabetes mellitus with hemoglobin A1c goal of less than 8.0% ([facility]) E11.9 HTN, goal below 140/90 I10 Dyslipidemia, goal LDL below 100 E78.5 Hypothyroidism E03.9 Seizure disorder ([facility]) G40.909 Well adult exam Z00.00 Localization-related symptomatic epilepsy and epileptic syndromes with complex partial seizures, not intractable, without status epilepticus ([facility]) G40.209 Kidney disease, chronic, stage IV (GFR 15-29 ml/min) ([facility]) N18.4 Personal history of malignant neoplasm of breast Z85.3 Benign breast cyst in female, left N60.02 Type 2 diabetes mellitus with stage 4 chronic kidney disease, without long-term current use of insulin ([facility]) E11.22, N18.4 Other chronic sinusitis J32.8 Family history of breast cancer in mother Z80.3 Moderate persistent asthma without complication J45.40 Hypertensive kidney disease with chronic kidney disease stage IV (HCC) I12.9, N18.4 Current Outpatient Medications Medication Sig [...] mouth in the morning. 90 Tablet 3 Escitalopram Oxalate 10 MG Oral Tablet (Lexapro) Take 1 Tablet (10 mg) by mouth [...] for sleep. 15 Tablet 0 Afrin Nasal [place] 0.05 % Nasal Solution (oxymetazoline) Administer 2 Sprays into nostril in the morning and 2 Sprays before bedtime. (Patient not taking: Reported on 07/22/2023) Ondansetron HCl 4 MG Oral Tablet Take by mouth 1 Tablet every 8 hours as needed for Nausea. 20 Tablet 0 Calcium Carbonate Antacid 500 MG Oral Tablet Chewable Take 1 Tablet by mouth as needed for Heartburn. Current Facility-Administered Medications Medication Dose Route Frequency Provider Last Rate Last Admin Albuterol Sulfate (Proventil) (2.5 MG/3ML) 0.083% inhalation solution 2.5 mg 2.5 mg Nebulizer Once PRN Lowell Rodriguez MD 2.5 mg at 10/13/22 1325 Albuterol Sulfate (Proventil) (2.5 MG/3ML) 0.083% inhalation solution 2.5 mg 2.5 mg Nebulizer Once PRN Lowell Rodriguez MD Past Medical History: Diagnosis Date Breast cancer ([facility]) 2000 right breast Ductal CA Dyslipidemia, goal LDL below 130 Family history of breast cancer in mother 10/23/2022 HTN, goal below 140/90 Hypothyroidism Kidney disease, chronic, stage IV (GFR 15-29 ml/min) ([facility]) 12/04/2021 Other chronic sinusitis 10/23/2022 Personal history of malignant neoplasm of breast 04/24/2022 2000 Retinopathy of left eye 05/05/2023 severe Seizure disorder ([facility]) dx 2005, follows w/Dr. Sheldon, stable on topamax Type 2 diabetes mellitus ([facility]) Type 2 diabetes mellitus with hemoglobin A1c goal of less than 8.0% ([facility]) 01/07/2017 Past Surgical History: Procedure Laterality Date CARDIAC CATHETERIZATION REPORT CATARACT SURGERY,COMPLEX Left 01/2017 Dr Turk COLONOSCOPY MASTECTOMY, PARTIAL Right 2000 MISCELLANEOUS ORDER ([facility] ONLY) Right lumpectomy breast REMOVAL OF OVARY(S) 1975 TOTAL ABD HYSTERECTOMY W/WO REMOVAL OF TUBE(S) Review of patient's allergies indicates: Allergen Reactions Midazolam Neuro complications (Please comment) confusion Baclofen Neuro complications (Please comment) confusion Fentanyl Lamictal [Lamotrigine] Dilantin [Phenytoin Sodium Extended] Itching Family History Problem Relation Age of Onset Breast Cancer Mother 66 Other (Other) Father back surgery Heart Disorder Father [place], passed at 63 Addiction problem Sister both sisters in [place]. Other (ckd) Sister Addiction problem Sister Lung cancer Brother 50 Heart Disorder Grandmother (Maternal) [place] Heart Disorder Grandmother (Paternal) "Dropsy" Heart Disorder Grandfather (Paternal) [place] Family Status Relation Status Mo Fa Sis [...] Negative for color change, pallor and rash. Psychiatric/Behavioral: As per HPI OBJECTIVE: BP 152/72 (BP Site: Right Arm, BP Position: Sitting, BP Cuff Size: Regular) | Pulse 66 | Temp 36.8 C (98.2 F) | Wt 51.2 kg (112 lb 14.4 oz) | SpO2 97% | BMI 26.00 kg/m | BSA 1.41 m PHYSICAL EXAM: Physical Exam Constitutional: General: [...] and oriented to person, place, and time. Psychiatric: Mood and Affect: Mood is anxious. Speech: Speech is rapid and pressured. ASSESSMENT/PLAN: (G40.909) Seizure disorder (HCC) (primary encounter diagnosis) Plan: Pt will f/u with neurology. No recent medication changes per pt. Will have her sign for records from Dr. Sheldon. (E11.9) Type 2 diabetes mellitus with hemoglobin A1c goal of less than 8.0% ([facility]) Plan: No changes for now. Remain on Jardiance. (N18.4) Kidney disease, chronic, stage IV (GFR 15-29 ml/min) ([facility]) Plan: Pt will f/u with nephrology. Did just receive BP monitor. BP elevated. Advised to check and keep log. Will message CM to f/u with her. (F41.1) ROSANA (generalized anxiety disorder) (F32.1) Moderate major depression ([facility]) Plan: Sertraline HCl 25 MG Oral Tablet (Zoloft), MINI-MENTAL QUESTIONNAIRE SCAN (MMSE) OP Pt will stop lexapro and start sertraline. MMSE 29/30. She is overwhelmed with her medical issues, caring for her son and her house cleaning. Will ask CM to offer any services to her as well. (G47.00) Insomnia, unspecified type Plan: LORazepam 1 MG Oral Tablet (Ativan) Refill sent. Follow-up: 6 weeks Total time today including reviewing chart before the visit, pertinent labs, imaging reports, face to face time, and documentation time was 45 minutes. Bozena De DO documented in this encounter Nursing Notes * Autumn Preciado RN - 08/06/2023 3:50 PM EDT 3 month return Dermatology took biopsy on left forearm. Has several insect bites on arms-using benadryl spray documented in this encounter Plan of Treatment Upcoming Encounters Date Type Specialty Care Team Description 08/31/2023 Nurse Only Ancillary College, Nurse Annual Wellness Visit [address] [place] [address] 09/21/2023 Office Visit Family Medicine Bozena De DO [address] [place] [address] 09/28/2023 Office Visit Dermatology Ambrocio Ramos MD [address] [place] [address] 09/28/2023 Cardiac Studies Cardiac Studies 10/26/2023 Office Visit Nephrology Nathaly Bone MD [address] [place], [place] [phone] Pending Results Name Type Priority Associated Diagnoses Date /Time MINI-MENTAL QUESTIONNAIRE SCAN (MMSE) OP Other Routine ROSANA (generalized anxiety disorder) Moderate major depression (HCC) 08/06/2023 5:10 PM EDT Health Maintenance Due Date Last Done Comments Cologuard 1994 Colonoscopy 1994 Colorectal Cancer Screening 1994 Fecal Occult Blood Test 1994 Sigmoidoscopy 1994 Mammogram 06/05/2023 06/05/2022, 05/19/2022 Zoster Vaccines (2 of 2) 06/17/2023 04/22/2023 COVID-19 Vaccine ( season) 2023 05/20/2022, 02/05/2021, 01/15/2021 Hgb 09/05/2023 09/05/2022, 06/01, 02/25/2001 HbA1c 10/22/2023 04/22/2023, 01/2023, 05/20/2022, Additional history exists Albumin/Creatinine Ratio 11/04/2023 11/04/2022, 020 12/2021 GFR 12/31/2023 07/02/2023, 0911/2022, 04/22/2023, Additional history exists Diabetic Foot Exam 04/22/2024 04/22/2023 PTH 04/22/2024 04/22/2023 TSH 04/22/2024 04/22/2023, 07/, 06/15/2020 DIABETES-EYE EXAM 06/08/2024 06/08/2023, , 12/24/2021 Nephrology Referral 07/02/2024 07/02/2023 Phosphate 07/02/2024 07/02/2023, 04/22/2023 Depression Screening 07/15/2024 07/15/2023 Lipid Panel 11/04/2027 11/04/2022, 12/03/2021 DTaP,Tdap,and Td Vaccines (2 - Td or Tdap) 11/04/2032 11/04/2022 Pneumococcal Vaccine: 65+ Years Completed 01/07/2017, 09/21/2014, 11/01/2005 Influenza Vaccine (FLU shot) Completed , 10/09/2022, 08/28/2019, Additional history exists GARDASIL-HPV IMMUNIZATION SERIES Aged Out No longer eligible based on patient's age to complete this topic Hepatitis B Aged Out No longer eligi ble based on patient's age to complete this topic MENINGOCOCCAL (MENACTRA/MENVEO) Aged Out No longer eligible based on patient's age to complete this topic documented as of this encounter Medical Devices Not on filedocumented as of this encounter Visit Diagnoses Diagnosis Seizure disorder (HCC)- Primary Unspecified epilepsy without mention of intractable epilepsy Type 2 diabetes mellitus with hemoglobin A1c goal of less than 8.0% (HCC) Kidney disease, chronic, stage IV (GFR 15-29 ml/min) (HCC) Chronic kidney disease, Stage IV (severe) ROSANA (generalized anxiety disorder) Generalized anxiety disorder Moderate major depression (HCC) Major depressive disorder, single episode, moderate Insomnia, unspecified type documented in this encounter Care Teams Vocational Rehabilitation Consultant Relationship Specialty Start Date End Date Bozena De, DO [address] [place] [address] PCP - General Family Medicine 04/22/23 documented as of this encounter
--- OUTSIDE RECORDS SUMMARY | 2023-11-10 12:11 | External Medical Summary | Summary of Care ---
Author Name Unknown Organization [facility] Address [address] [place] [address] Phone [phone] Care Team Providers Care Nurse Sane Name Role Phone Bozena De Primary Care Provider [phone] Reason for Visit * Reason Onset Date Comments Blood Pressure Check 09/09/2023 Encounter Details Date Type Department Care Team (Late st Contact Info) Description 09/09/2023 Telephone Nephrology, [facility] [address] [facility] [place] [address] Mandy Rao MD [address] [place] [address] Blood Pressure Check Allergies Active Allergy Reactions [...] Tablet before bedtime. 0 Active Afrin Nasal [place] 0.05 % Nasal Solution (oxymetazoline) Administer 2 [...] A1c goal of less than 8.0% ([facility]) Take 1 Tablet by mouth in the morning. 30 Tablet 2 06/04/2023 Active Sodium Bicarbonate 650 MG Oral TabletIndications: Kidney disease, chronic, stage IV (GFR 15-29 ml/min) ([facility]) Take 1 Tablet by mouth in the morning and 1 Tablet before bedtime. 180 Tablet 3 07/13/2023 Active LORazepam 1 MG Oral Tablet (Ativan)Indication s:Insomnia, unspecified type Use 1/2 a tablet by mouth as needed for sleep. 15 Tablet 0 08/06/2023 Active Sertraline HCl 25 MG Oral Tablet (Zoloft)Indication s:ROSANA (generalized anxiety disorder),Moderate major depression ([facility]) Take 1 Tablet by mouth in the [...] suboptimal and may underestimate any underlying obstruction [facility] in past . Cards-saw [...] encounter Miscellaneous Notes * Telephone Encounter - Polly Dc LPN - 09/09/2023 9:55 AM EST Pt came in today to have her remote bp monitor(louis Malissa) validated. The cuff she received is very [...] EST Office Visit Family Practice [address] [place] [address] [facility] [place] [id number] Bozena De DO [address] [facility], [place] [address] 09/28/2023 11:15 AM EST Office Visit Dermatology [facility] [place] [address] [place] [address] Ambrocio Ramos MD [address] [place] [address] 09/28/2023 3:00 PM EST Cardiac Studies Cardiac Studies, [facility] [address] [facility] [place] [address] 10/28/2023 2:40 PM EST Office Visit Nephrology, [facility] [address] [facility] [place] [address] Nathaly Bone MD [address] [place] [address] 08/31/2024 2:00 PM EDT Nurse Only Ancillary [address] [facility] [address] [facility] [place] [address] College, Nurse Annual Wellness Visit 65 [facility] [address] [facility] [place] [address] Health Maintenance Due Date Last Done Comments [...] Additional history exists Albumin/Creatinine Ratio 11/04/2023 11/04/2022, 0212/2021 GFR 12/31/2023 07/02/2023, 0911/2022, 04/22/2023, Additional history [...] filedocumented as of this encounter Care Teams Nurse Sane Relationship Specialty Start Date End Date Bozena De DO [address] [facility] [place] [address] PCP - General Family Medicine 04/22/23 documented as of this encounter
--- OUTSIDE RECORDS SUMMARY | 2023-11-10 12:11 | External Medical Summary | Summary of Care ---
Author Name Unknown Organization [facility] Address [address] [place] [address] Phone [phone] Care Team Providers Care Strategic Communications Manager Name Role Phone Bozena De DO Primary Care Provider [phone] Reason for Visit * Reason Comments case management CKD CM progress note Encounter Details Date Type Department Care Team (Late st Contact Info) Description 09/01/2023 Polysomnographic Tech Care Coordination [address] [place], [place] [phone] Emily Quintanilla RN [address] [place], [place] [phone] Kidney disease, chronic, stage IV (GFR 15-29 ml/min) ([facility])* Allergies Active Allergy Reactions Criticality Noted Date Comments Baclofen Neuro complications (Please comment) 08/18/2022 confusion Phenytoin Sodium Extended Itching Low 01/07/2017 Fentanyl 04/24/2022 Lamotrigine 01/07/2017 Midazolam Neuro complications (Please comment) High 08/18/2022 confusion documented as of this encounter (statuses as of 09/01/2023) Medications Medication Sig Dispensed Refills Start Date [...] Tablet before bedtime. 0 Active Afrin Nasal [place] 0.05 % Nasal Solution (oxymetazoline) Administer 2 [...] as of this encounter (statuses as of 09/01/2023) Active Problems Problem Noted Date Diagnosed Date [...] suboptimal and may underestimate any underlying obstruction [facility] in past . Cards-saw Dr Live in [...] as of this encounter (statuses as of 09/01/2023) Immunizations Name Administration Dates Next Due COVID-19 [...] Answer Date Recorded PHQ Adult Total Score 2 08/06/2023 Hunger Vital Sign Answer Date Recorded Within the past 12 months, y ou worried that your food would run out before you got the money to buy more. Never true 08/06/20 23 Within the past 12 months, t he food you bought just didn't last and you didn't have money to get more. Never true 08/06/2023 Sex and Gender Information Value Date Recorded Sex Assigned at Female 02/24/2023 3:46 PM EDT Gender Identity Female 02/24/2023 3:46 PM EDT Sexual Orientation Straight 02/24/2023 3: 46 PM EDT Job Start Date Occupation Industry Not on file Not on file Not on file documented as of this encounter Progress Notes * Emily Quintanilla, RN - 09/01/2023 2:06 PM EDT CKD CM progress note Spoke with pt, he reports that she is doing well. She has noted some edema to her left leg, shoe is not fitting differently but wanted CM to be aware. Pt BP remains elevated. Bp has regular size cuff. Pt is petite may benefit from small cuff size. Discussed [facility] cuff, she is in agreement will place order. She reports BP ranges from 150's-190's systolic to 70's-80's diastolic. She had question re: RSV vaccine, encouraged her to discuss with her PCP. She indicates that she was contacted re: STEP program via [employer] research team. She wanted to besure she would not lose CM services if she participated. Pt asked if CM had received information from [facility], will f/u after call. No medication changes. Had nurse annual visit. Pt able to verbalize 2 red flags, reviewed others. Plan; will f/u with [facility] information and goal review in 4-5 weeks. Call to [employer] at [phone]; spoke with Camelia. 4hrs minimum first shift with minimum of 8hrs per week. Rate is $27/hr if salvage determiner service requested or if short term, 30 days or less it is$30/hr. Call to pt to make her aware, no answer. Left message requesting a call back. Emily Quintanilla, RN Kidney Transitions Specialist CKD Polysomnographic Tech documented in this encounter Plan of Treatment Upcoming Encounters Date Type Department Care Team (Late st Contact Info) Description 09/21/2023 1:00 PM EST Office Visit Family Practice [facility] [address] [place] [address] Bozena De DO [address] [place] [address] 09/28/2023 11:15 AM EST Office Visit Dermatology [facility] [address] [place] [address] Ambrocio Ramos MD [address] [place] [address] 09/28/2023 3:00 PM EST Cardiac Studies Cardiac Studies, [facility] [address] [place] [address] 10/28/2023 2:40 PM EST Office Visit Nephrology, [facility] [address] [place] [address] Nathaly Bone MD [address] [place] [address] 08/31/2024 2:00 PM EDT Nurse Only Ancillary [address] [facility] [address] [place] [address] College, Nurse Annual Wellness Visit [facility] [address] [place] [address] Health Maintenance Due Date Last Done Comments Cologuard 1994 Colonoscopy 1994 Colorectal Cancer Screening 1994 Fecal Occult Blood Test 1994 Sigmoidoscopy 1994 Hepatitis B (1 of 3 - Risk 3-dose series) 2009 Mammogram 06/05/2023 06/05/2022, 05/19/2022 Zoster Vaccines (2 of 2) 06/17/2023 04/22/2023 COVID-19 Vaccine ( - season) 2023 05/20/2022, 02/05/2021, 01/15/2021 Hgb 09/05/2023 09/05/2022, 0803/2020, 02/25/2001 HbA1c 10/22/2023 04/22/2023, 010 01/2023, 05/20/2022, Additional history exists Albumin/Creatinine Ratio 11/04/2023 11/04/2022, 020 12/2021 GFR 12/31/2023 07/02/2023, 0911/2022, 04/22/2023, Additional history exists Diabetic Foot Exam 04/22/2024 04/22/2023 PTH 04/22/2024 04/22/2023 TSH 04/22/2024 04/22/2023, 07, 06/15/2020 Diabetic Eye Exam 06/08/2024 06/08/2023, , [...] IV (GFR 15-29 ml/min) ([facility])- Primary Chronic kidney disease, Stage IV (severe) documented in this encounter Care Teams Strategic Communications Manager Relationship Specialty Start Date End Date Bozena De DO [address] [address] PCP - General Family Medicine 04/22/23 documented as of this encounter
--- OUTSIDE RECORDS SUMMARY | 2023-11-10 12:11 | External Medical Summary | Summary of Care ---
Author Name Unknown Organization [facility] Address [address] [place] [address] Phone [phone] Care Team Providers Care Tobacco Stripper Hand Name Role Phone Bozena De DO Primary Care Provider Reason for Visit * Reason Comments case management CKD CM goal review Encounter Details Date Type Department Care Team Description 08/17/2023 Shipping Helper Care Coordination [address] [place] [address] Emily Quintanilla RN Kidney disease, chronic, stage IV (GFR 15-29 ml/min) ([facility])* Allergies Active Allergy Reactions Severity Noted Date Comments Baclofen Neuro complications (Please comment) 08/18/2022 confusion Phenytoin Sodium Extended Itching Low 01/07/2017 Fentanyl 04/24/2022 Lamotrigine 01/07/2017 Midazolam Neuro complications (Please comment) High 08/18/2022 confusion documented as of this encounter (statuses as of 08/17/2023) Medications Medication Sig Dispensed Refills Start Date [...] Tablet before bedtime. 0 Active Afrin Nasal [place] 0.05 % Nasal Solution (oxymetazoline) Administer 2 [...] as of this encounter (statuses as of 08/17/2023) Active Problems Problem Noted Date Hypertensive kidney [...] malignant neoplasm o f breast 04/24/2022 Overview: 2000 Kidney disease, chronic, stage IV (GFR 1 5-29 ml/min) 12/04/2021 Seizure disorder 12/03/2021 Overview: dx 2006, follows w/Dr. Sheldon, stable on topamax Well adult exam 12/03/2021 Overview: 10/22 PFTs -decreasedCONCLUSION: Spirogram is within acceptable limits. There is mild decrease in flow at the level of the small airways. Expiratory time is suboptimal and may underestimate any underlying obstruction [facility] in past . Cards-saw Dr [...] as of this encounter (statuses as of 08/17/2023) Immunizations Name Administration Dates Next Due COVID-19 [...] this encounter Progress Notes * Emily Quintanilla, YULIA - 08/17/2023 3:09 PM EDT Shipping Helper Progress Note: Date: 08/17/23 Assigned Patient Tier: 2 Connected with patient via phone. Verified patient name/. Advised patient that call is being recorded for quality and training purposes. Assessment: Pt. noted the following: CKD CM goal review Spoke with pt. She reports that she is doing ok. Things are better with her son now. She reports that she is very tired, not sleeping well, said she has been seeing "huge black cats flying around and bats". Pt says she thinks it is from the blood behind her eyes, she is followed by aretina specialist, Dr. Glaser. She reports that her BP has been high 223/71, rechecked 192/70 then rechecked again at 191/80. Pt checks BP prior to taking medication, encouraged her to check 1 hour after, to sit quietly for a little while before checking, no caffeine, sit with both feet on the floor. Pt thinks she may need her atenolol increased for a period of time. Asked pt what would help her to reduce stress. She said someone to help cook/clean; she had hired someone in the past private pay. Discussed options with pt, she has reached out to [facility] [employer], but they have a minimum of 12 hr. She also reached out to another agency she could not recall. Discussed [employer] will contact for cost and minimum hours questions. She said she was always spoiled and didn't have to cook so is having a hard time learning how to cook meals that is within her diet. Pt reports that she was started on Sertraline but continues to take her Lexapro because she paid for them and has about 80 tabs left. Pt reports concern re: hair loss and getting hiccups a lot. Reviewed red flags with pt. SOB, Edema, Headaches. Plan; will f/u with pt later this week re: BP's. Then in 2-3 weeks for progress note.. Did you receive an alert for an annual wellness visit? Yes, [address] Is this call for a hospital, m[facility] or rehab facility discharge to home? No Medication Reconciliation: Medication Reconciliation completed: discussed Review of Current goals: Discussed the following patient-centered CM goals with the patient during this discussion: -HYPERTENSION: Achieve successful management/treatment of HTN -Status: At Risk Pt BP remains high, provided education re: how to check BP. -CKD: Patient will maintain kidney function as long as possible -Status: At Risk high BP. -ESRD: Promote minimal renal risk for patient -Status: On Track pt adherent with meds, avoids NSAIDS and OTC. COPD Patient: No CHF Patient: NO CM Plan: Reviewed 3 Red Flags with patient. Advised to call CM with any of the following: Red Flag 1: SOB, Red Flag 2: Edema, or Red Flag 3: Headache Remote Patient Monitoring: At this time, RPM not offered/considered for patient due to pt has own equipment. Plan for Future Contacts: Plan to follow up within 2 weeks to check progress on the following goals/needs BP. Planned contacts from the following parties will occur this week: N/A as additional contacts per workflow. Advancement/Closure Plan: Keep patient at current Tier with reassessment per workflow. Patient provided CM contact information and encouraged to call with any changes in condition. SNP Member? No PCP Notified of enrollment in CM/HM program: Yes Is Provider in agreement with POC? Yes Exacerbation Plan Reviewed S/S of uremia and fluid retention. Reviewed diet restrictions, including no added salt, phosphorus and potassium. Encouraged to call office if symptoms occur. Follow up: 2-3 weeks, patient verbalizes understanding to call office if questions or concerns arise. Emily Quintanilla RN Kidney Transitions Specialist Nephrology Case Management documented in this encounter Plan of Treatment Upcoming Encounters Date Type Specialty Care Team Description 08/31/2023 Nurse Only Ancillary College, Nurse Annual Wellness Visit [address] [place] [address] 09/21/2023 Office Visit Family Medicine Bozena De DO 293 [place] [address] 09/28/2023 Office Visit Dermatology Ambrocio Ramos MD [address] [facility] [place] [address] 09/28/2023 Cardiac Studies Cardiac Studies 10/28/2023 Office Visit Nephrology Nathaly Bone MD [address] [place], [place] [phone] Health Maintenance Due Date Last Done Comments Cologuard 1994 Colonoscopy 1994 Colorectal Cancer Screening 1994 Fecal Occult Blood Test 1994 Sigmoidoscopy 1994 Mammogram 06/05/2023 06/05/2022, 05/19/2022 Zoster Vaccines (2 of 2) 06/17/2023 04/22/2023 COVID-19 Vaccine ( season) 2023 05/20/2022, 02/05/2021, 01/15/2021 Hgb 09/05/2023 09/05/2022, 06/01, 02/25/2001 HbA1c 10/22/2023 04/22/2023, 01/2023, 05/20/2022, Additional history exists Albumin/Creatinine Ratio 11/04/2023 11/04/2022, 12/2021 GFR 12/31/2023 07/02/2023, 0911/2022, 04/22/2023, Additional history exists Diabetic Foot Exam 04/22/2024 04/22/2023 PTH 04/22/2024 04/22/2023 TSH 04/22/2024 04/22/2023, 07/, 06/15/2020 DIABETES-EYE EXAM 06/08/2024 06/08/2023, , 12/24/2021 Nephrology Referral 07/02/2024 07/02/2023 Phosphate 07/02/2024 07/02/2023, 04/22/2023 Depression Screening 08/06/2024 08/06/2023 Lipid Panel 11/04/2027 11/04/2022, 12/03/2021 DTaP,Tdap,and Td [...] (severe) documented in this encounter Care Teams Tobacco Stripper Hand Relationship Specialty Start Date End Date Bozena De, [address] [place] [address] PCP - General Family Medicine 04/22/23 documented as of this encounter
--- OUTSIDE RECORDS SUMMARY | 2023-11-10 12:11 | External Medical Summary ---
Author Name Unknown Address Unknown Organization K01:[facility] [place], [place] - [address] [facility] [address] Laboratory Report Ordering Provider Test Date Status CARLENE HYDE 09/09/2023 10:00:50 Final Observation Date Value Abnormality Reference (Units ) Status HbA1C 09/09/2023 10:00:50 8.3 Above high normal 4. 0-5.6 (%) Final The use of HbA1c to monitor glycemic status is based on normal hemoglobin and HbA composition. This test should not be used in patients with abnormal hemoglobin that affects the half life of the red blood cell or the in vivo glycation rates. Glucose, estimated average 09/09/2023 10:00:50 192 Above high normal <126 (mg/dL) Ruben valero Performing Location [facility] [place], [place] - [address] [facility] [address] [facility] [address]
--- OUTSIDE RECORDS SUMMARY | 2023-11-10 12:11 | External Medical Summary | Summary of Care ---
Author Name Unknown Organization [facility] Address [address] [place] [address] Phone [phone] Care Team Providers Care Manager E Learning Name Role Phone Bozena De DO Primary Care Provider Reason for Visit * Reason Onset Date Comments case management 08/12/2023 CKD CM progress note/pt check Encounter Details Date Type Department Care Team Description 08/12/2023 Warper Creeler Telephone Care Coordination [address] [place] [address] Emily Quintanilla, manager wealth management (CKD CM progress note/pt c... Allergies Active Allergy Reactions Severity Noted Date Comments Baclofen Neuro complications (Please comment) 08/18/2022 confusion Phenytoin Sodium Extended Itching Low 01/07/2017 Fentanyl 04/24/2022 Lamotrigine 01/07/2017 Midazolam Neuro complications (Please comment) High 08/18/2022 confusion documented as of this encounter (statuses as of 08/12/2023) Medications Medication Sig Dispensed Refills Start Date [...] Tablet before bedtime. 0 Active Afrin Nasal [place] 0.05 % Nasal Solution (oxymetazoline) Administer 2 [...] hemoglobin A1c goal of less than 8.0% ([facility]) Take 1 Tablet by mouth in the morning. 30 Tablet 2 06/04/2023 Active Sodium Bicarbonate 650 MG Oral TabletIndications: Kidney disease, chronic, stage IV (GFR 15-29 ml/min) ([facility]) Take 1 Tablet by mouth in the morning and 1 Tablet before bedtime. 180 Tablet 3 07/13/2023 Active LORazepam 1 MG Oral Tablet (Ativan)Indication s:Insomnia, unspecified type Use 1/2 a tablet by mouth as needed for sleep. 15 Tablet 0 08/06/2023 Active Sertraline HCl 25 MG Oral Tablet (Zoloft)Indication s:ROSANA (generalized anxiety disorder),Moderate major depression ([facility]) Take 1 Tablet by mouth in [...] as of this encounter (statuses as of 08/12/2023) Active Problems Problem Noted Date Hypertensive kidney [...] suboptimal and may underestimate any underlying obstruction [facility] in past . Cards-saw Dr [...] as of this encounter (statuses as of 08/12/2023) Immunizations Name Administration Dates Next Due COVID-19 mRNA, LNP-s, No Pre serve, 2-Dose Series ([employer]) 02/05/2021,01/15/2021 COVID-19, LNP-s, No Preserve , Torito-sucrose, [...] encounter Miscellaneous Notes * Telephone Encounter - Emily Quintanilla RN - 08/12/2023 2:35 PM EDT CKD CM progress note Call to pt, she reports that she is congested, no other symptoms. Says she is taking Claritin D. A male voice in the background heard saying "there is someone coming to see you, want you to be ready". Pt said she was. She indicates it is her son speaking, he was "going off today". Adams pt say, this is [facility] on the phone. Son heard saying "well let me talk to them, i will tell them what it is. Pt told him this is my "kidney porter sample case". Asked pt if she was safe, she said "i think so, yes". Adams son saying 'well let me talk to her." Pt asked for a call back. Call ended. Plan; will f/u with pt later today or tomorrow. Emily Quintanilla RN Kidney Transitions Specialist CKD Warper Creeler documented in this encounter Plan of Treatment Upcoming Encounters Date Type Specialty Care Team Description 08/31/2023 Nurse Only Ancillary College, Nurse Annual Wellness Visit [address] [place] [address] 09/21/2023 Office Visit Family Medicine [facility] De[facility] [address] 09/28/2023 [facility]atology [facility] [address] [facility] [address] 09/28/2023 Cardiac Studies Cardiac Studies 10/28/2023 Office Visit Nephrology Nathaly Bone MD [address] [facility] [place] [address] Health Maintenance Due Date Last Done Comments Cologuard 1994 Colonoscopy 1994 Colorectal Cancer Screening 1994 Fecal Occult Blood Test 1994 Sigmoidoscopy 1994 Mammogram 06/05/2023 06/05/2022, 05/19/2022 Zoster Vaccines (2 of 2) 06/17/2023 04/22/2023 COVID-19 Vaccine ( season) 2023 05/20/2022, 02/05/2021, 01/15/2021 Hgb 09/05/2023 09/05/2022, 06/01, 02/25/2001 HbA1c 10/22/2023 04/22/2023, 01/0 01/2023, 05/20/2022, Additional history exists Albumin/Creatinine Ratio 11/04/2023 11/04/2022, 020 12/2021 GFR 12/31/2023 07/02/2023, 090 11/2022, 04/22/2023, Additional history exists Diabetic Foot Exam 04/22/2024 04/22/2023 PTH 04/22/2024 04/22/2023 TSH 04/22/2024 04/22/2023, 05/02, 06/15/2020 DIABETES-EYE EXAM 06/08/2024 06/08/2023, , 12/24/2021 [...] as of this encounter Care Teams Manager E Learning Relationship Specialty Start Date End Date Bozena De, DO [address] [place] [address] PCP - General Family Medicine 04/22/23 documented as of this encounter
--- OUTSIDE RECORDS SUMMARY | 2023-11-10 12:11 | External Medical Summary | Summary of Care ---
Author Name Unknown Organization [facility] Address [address] [place] [address] Phone [phone] Care Team Providers Care Garment Patternmaker Name Role Phone Bozena De DO Primary Care Provider [phone] Reason for Visit * Reason Onset Date Comments case management 08/11/2023 CKD CM attempt t o contact Encounter Details Date Type Department Care Team Description 08/11/2023 Scale Tank Operator Telephone Care Coordination [address] [place] [address] Emily Quintanilla, entry level management (CKD CM attempt to contact) Allergies Active Allergy Reactions Severity Noted Date Comments Baclofen Neuro complications (Please comment) 08/18/2022 confusion Phenytoin Sodium Extended Itching Low 01/07/2017 Fentanyl 04/24/2022 Lamotrigine 01/07/2017 Midazolam Neuro complications (Please comment) High 08/18/2022 confusion documented as of this encounter (statuses as of 08/11/2023) Medications Medication Sig Dispensed Refills Start Date [...] Tablet before bedtime. 0 Active Afrin Nasal [place] 0.05 % Nasal Solution (oxymetazoline) Administer 2 [...] goal of less than 8.0% ([facility]) Take 1 Tablet by mouth in the morning. 30 Tablet 2 06/04/2023 Active Sodium Bicarbonate 650 MG Oral TabletIndications: Kidney disease, chronic, stage IV (GFR 15-29 ml/min) ([facility]) Take 1 Tablet by mouth in the morning and 1 Tablet before bedtime. 180 Tablet 3 07/13/2023 Active LORazepam 1 MG Oral Tablet (Ativan)Indication s:Insomnia, unspecified type Use 1/2 a tablet by mouth as needed for sleep. 15 Tablet 0 08/06/2023 Active Sertraline HCl 25 MG Oral Tablet (Zoloft)Indication s:ROSANA (generalized anxiety disorder),Moderate major depression ([facility]) Take 1 Tablet by mouth in the [...] as of this encounter (statuses as of 08/11/2023) Active Problems Problem Noted Date Hypertensive kidney [...] suboptimal and may underestimate any underlying obstruction [facility] in past . Cards-saw Dr Live in [...] as of this encounter (statuses as of 08/11/2023) Immunizations Name Administration Dates Next Due COVID-19 [...] Telephone Encounter - Emily Quintanilla RN - 08/11/2023 2:26 PM EDT Follow-up Routine Attempted Phone Call First Attempt Call Outcome Left Voicemail/Message Plan To attempt another outreach Emily Quintanilla RN Kidney Transitions Specialist CKD Scale Tank Operator documented in this encounter Plan of Treatment Upcoming Encounters Date Type Specialty Care Team Description 08/31/2023 Nurse Only Ancillary College, Nurse Annual Wellness Visit [address] [facility] [address] [place] [address] 09/21/2023 Office Visit Family Medicine Bozena De DO [address] [place] [address] 09/28/2023 Office Visit Dermatology Ambrocio Ramos MD [address] [place] [address] 09/28/2023 Cardiac Studies Cardiac Studies 10/28/2023 Office Visit Nephrology Nathaly Bone MD [address] [place] [id number] Health Maintenance Due Date Last Done Comments Cologuard 1994 Colonoscopy 1994 Colorectal Cancer Screening 1994 Fecal Occult Blood Test 1994 Sigmoidoscopy 1994 Mammogram 06/05/2023 06/05/2022, 05/19/2022 Zoster Vaccines (2 of 2) 06/17/2023 04/22/2023 COVID-19 Vaccine (4 - season) 2023 05/20/2022, 02/05/2021, 01/15/2021 Hgb [...] filedocumented as of this encounter Care Teams Garment Patternmaker Relationship Specialty Start Date End Date Bozena De, [address] [place] [address] PCP - General Family Medicine 04/22/23 documented as of this encounter
--- OUTSIDE RECORDS SUMMARY | 2023-11-10 12:11 | External Medical Summary ---
Author Name Unknown Address Unknown Organization K01:[facility]ATORY [facility] [place] - [address] [place] [address] Laboratory Report Ordering Provider Test Date Status PRAVIN ACOSTA 09/09/2023 10:00:50 Final Observation Date Value Abnormality Reference (Units ) Status Parathyrin.intact [Mass/volume] in Serum or Plasma 09/09/2023 10:00:50 152 Above high normal 15-65 (pg/mL) Final Performing Location [facility] [place] - [address] [place] [id number]
--- OUTSIDE RECORDS SUMMARY | 2023-11-10 12:11 | External Medical Summary | Summary of Care ---
Author Name Unknown Organization [facility] Address [address] [place] [address] Phone [phone] Care Team Providers Care Surgeon Assistant Name Role Phone Bozena De Primary Care Provider [phone] Reason for Visit * Reason Onset Date Comments Blood Pressure Check 09/09/2023 Encounter Details Date Type Department Care Team (Late st Contact Info) Description 09/09/2023 Telephone Nephrology, Alison Sena [address] [facility] [place] [address] Mandy Rao MD 200 [facility] [address] Blood Pressure Check Allergies Active Allergy Reactions [...] Tablet before bedtime. 0 Active Afrin Nasal [place] 0.05 % Nasal Solution (oxymetazoline) Administer 2 [...] hemoglobin A1c goal of less than 8.0% ([facility]) Take 1 Tablet by mouth in the morning. 30 Tablet 2 06/04/2023 Active Sodium Bicarbonate 650 MG Oral TabletIndications: Kidney disease, chronic, stage IV (GFR 15-29 ml/min) ([facility]) Take 1 Tablet by mouth in the morning and 1 Tablet before bedtime. 180 Tablet 3 07/13/2023 Active LORazepam 1 MG Oral Tablet (Ativan)Indication s:Insomnia, unspecified type Use 1/2 a tablet by mouth as needed for sleep. 15 Tablet 0 08/06/2023 Active Sertraline HCl 25 MG Oral Tablet (Zoloft)Indication s:ROSANA (generalized anxiety disorder),Moderate major depression ([facility]) Take 1 Tablet by mouth in the [...] suboptimal and may underestimate any underlying obstruction [facility] in past . Cards-saw Dr Live [...] Dc LPN - 09/09/2023 10:37 AM EST Amc cuff is what she brought into office today. * Telephone Encounter - Polly Dc LPN - 09/09/2023 9:55 AM EST Pt came in today to have her remote bp monitor([employer] [place]) validated. The cuff she received is very [...] EST Office Visit Family Practice [address] [place] [address] [place] [address] Bozena De DO [address] [place] [address] 09/28/2023 11:15 AM EST Office Visit Dermatology [facility] 200 [facility] [place] [address] Ambrocio aRmos MD 200 [facility] [place] [address] 09/28/2023 3:00 PM EST Cardiac Studies Cardiac Studies, [facility] [address] [place] [address] 10/28/2023 2:40 PM EST Office Visit Nephrology, [facility] 200 [facility] [place] [address] Nathaly Bone MD [address] [place] [address] 08/31/2024 2:00 PM EDT Nurse Only Ancillary 65 [facility] [address] [place] [address] College, Nurse Annual Wellness Visit 65 [facility] [address] [place] [address] Health Maintenance Due Date Last Done Comments Cologuard 1994 Colonoscopy 1994 Colorectal Cancer Screening 1994 Fecal Occult Blood Test 1994 Sigmoidoscopy 1994 Hepatitis B (1 of 3 - Risk 3-dose series) 2009 Mammogram 06/05/2023 06/05/2022, 05/19/2022 Zoster Vaccines (2 of 2) 06/17/2023 04/22/2023 COVID-19 Vaccine ( season) 2023 05/20/2022, 02/05/2021, 01/15/2021 Hgb 09/05/2023 09/05/2022, 0803/2020, 02/25/2001 HbA1c 10/22/2023 04/22/2023, 01/2023, 05/20/2022, Additional history exists Albumin/Creatinine Ratio 11/04/2023 11/04/2022, 02/0 12/2021 GFR 12/31/2023 07/02/2023, 09/0 11/2022, 04/22/2023, Additional history exists Diabetic Foot [...] filedocumented as of this encounter Care Teams Surgeon Assistant Relationship Specialty Start Date End Date Bozena De DO 293 [place] [address] PCP - General Family Medicine 04/22/23 documented as of this encounter
--- OUTSIDE RECORDS SUMMARY | 2023-11-10 12:11 | External Medical Summary | Summary of Care ---
Author Name Unknown Organization [facility] Address [address] [place] [address] Phone [phone] Care Team Providers Care Plumbing Mechanic Name Role Phone Bozena De DO Primary Care Provider [phone] Reason for Visit * Reason Onset Date Comments case management 08/13/2023 CKD CM attempt t o contact Encounter Details Date Type Department Care Team Description 08/13/2023 Audit Machine Operator Telephone Care Coordination [address] [place] [address] Emily Quintanilla, management lead (CKD CM attempt to contact) Allergies Active Allergy Reactions Severity Noted Date Comments Baclofen Neuro complications (Please comment) 08/18/2022 confusion Phenytoin Sodium Extended Itching Low 01/07/2017 Fentanyl 04/24/2022 Lamotrigine 01/07/2017 Midazolam Neuro complications (Please comment) High 08/18/2022 confusion documented as of this encounter (statuses as of 08/13/2023) Medications Medication Sig Dispensed Refills Start Date [...] Tablet before bedtime. 0 Active Afrin Nasal [place] 0.05 % Nasal Solution (oxymetazoline) Administer 2 [...] hemoglobin A1c goal of less than 8.0% ([facility]) Take 1 Tablet by mouth in the morning. 30 Tablet 2 06/04/2023 Active Sodium Bicarbonate 650 MG Oral TabletIndications: Kidney disease, chronic, stage IV (GFR 15-29 ml/min) ([facility]) Take 1 Tablet by mouth in the morning and 1 Tablet before bedtime. 180 Tablet 3 07/13/2023 Active LORazepam 1 MG Oral Tablet (Ativan)Indication s:Insomnia, unspecified type Use 1/2 a tablet by mouth as needed for sleep. 15 Tablet 0 08/06/2023 Active Sertraline HCl 25 MG Oral Tablet (Zoloft)Indication s:ROSANA (generalized anxiety disorder),Moderate major depression ([facility]) Take 1 Tablet by mouth [...] as of this encounter (statuses as of 08/13/2023) Active Problems Problem Noted Date Hypertensive kidney [...] and may underestimate any underlying obstruction [facility] in past . Cards-saw Dr Live in [...] as of this encounter (statuses as of 08/13/2023) Immunizations Name Administration Dates Next Due COVID-19 [...] Telephone Encounter - Emily Quintanilla RN - 08/13/2023 3:20 PM EDT Follow-up Routine Attempted Phone Call First Attempt Call Outcome Left Voicemail/Message Plan To attempt another outreach Emily Quintanilla RN Kidney Transitions Specialist CKD Audit Machine Operator documented in this encounter Plan of Treatment Upcoming Encounters Date Type Specialty Care Team Description 08/31/2023 Nurse Only Ancillary College, Nurse Annual Wellness Visit [address] [facility] [address] [place] [address] 09/21/2023 Office Visit Family Medicine Bozena De DO [address] [place] [address] 09/28/2023 Office Visit Dermatology Ambrocio Ramos MD 200 [place] [address] 09/28/2023 Cardiac Studies Cardiac Studies 10/28/2023 Office Visit Nephrology Nathaly Bone MD [address] [place] [phone] Health Maintenance Due Date Last Done Comments [...] filedocumented as of this encounter Care Teams Plumbing Mechanic Relationship Specialty Start Date End Date Bozena De, [address] [place] [address] PCP - General Family Medicine 04/22/23 documented as of this encounter
--- OUTSIDE RECORDS SUMMARY | 2023-11-10 12:11 | External Medical Summary | Summary of Care ---
Author Name Unknown Organization [facility] Address [address] [place] [address] Phone [phone] Care Team Providers Care Pizza Cook Name Role Phone GailBozena haas Uriel JUAREZ Primary Care Provider [phone] Reason for Referral * Evaluate & Treat - Unlimited Visits (Within 10 days (routine)) - Authorized Specialty Diagnoses / Procedures Referred By Steph villatoro Referred To Contact Efficiency Manager Diagnoses HTN, goal below 140/90 Herber Dolan DO [address] [place] [address] Referral ID Status Reason Start Date Expiration Date Visits Requested Visits Authorized [id number] Authorized Specialty Services Required 09/02/2023 1 1 Question Answer Referral Priority Within 10 days (routine) Where should this appointment be scheduled? [facility] Program Type Case Management Complex Case Management [facility] Health Device(s) Requested BP Cuff Comments Primary Efficiency Manager: Emily Quintanilla, YULIA Is the patient already enrolled with another [facility] device/service? (If no, will need to "push the button") No Does the patient have a physical address? (If no, provide physical address if requesting device) Yes Requested Devices/IVR: Requested Device(s): Blood pressure Cuff Size: small Target goal BP (eg less than 130/80): 140/90 High and Low Limits for Systolic AND Diastolic readings: eg Systolic Low 120 Systolic High 150 Diastolic Low 60 Diastolic High 100 Frequency of BP checks (eg, BID, daily, etc): daily Begin Date: 09/13/2023 End Date (must be reevaluated at 8 weeks): 11/08/2023 Reason for Visit * Reason Comments case management CKD CM progress note Encounter Details Date Type Department Care Team (Sukh hart Contact Info) Description 09/01/2023 Efficiency Manager Care Coordination [address] [place] [address] Emily Quintanilla, RN [address] [place] [address] Kidney disease, chronic, stage IV (GFR 15-29 ml/min) ([facility])*; HTN, goal below 140/90 Allergies Active Allergy Reactions Criticality Noted Date Comments Baclofen Neuro complications (Please comment) 08/18/2022 confusion Phenytoin Sodium Extended Itching Low 01/07/2017 Fentanyl 04/24/2022 Lamotrigine 01/07/2017 Midazolam Neuro complications (Please comment) High 08/18/2022 confusion documented as of this encounter (statuses as of 09/02/2023) Medications Medication Sig Dispensed Refills Start Date [...] Tablet before bedtime. 0 Active Afrin Nasal [place] 0.05 % Nasal Solution (oxymetazoline) Administer 2 [...] hemoglobin A1c goal of less than 8.0% ([facility]) Take 1 Tablet by mouth in the morning. 30 Tablet 2 06/04/2023 Active Sodium Bicarbonate 650 MG Oral TabletIndications: Kidney disease, chronic, stage IV (GFR 15-29 ml/min) ([facility]) Take 1 Tablet by mouth [...] as of this encounter (statuses as of 09/02/2023) Active Problems Problem Noted Date Diagnosed Date [...] Seizure disorder 12/03/2021 Overview: dx 2005, follows w/vamsi Kim on topamax Well adult exam 12/03/2021 Overview: 10/22 PFTs -decreasedCONCLUSION: Spirogram is within acceptable limits. There is mild decrease in flow at the level of the small airways. Expiratory time is suboptimal and may underestimate any underlying obstruction [facility] in past . Cards-saw Dr Live [...] as of this encounter (statuses as of 09/02/2023) Immunizations Name Administration Dates Next Due COVID-19 [...] of this encounter Progress Notes * Emily Quintanilla RN - 09/01/2023 2:06 PM EDT CKD [...] she was contacted re: STEP program via [employer] research team. She wanted to besure she would not lose CM services if she participated. Pt asked if CM had received information from [employer], will f/u after call. No medication changes. Had nurse annual visit. Pt able to verbalize 2 red flags, reviewed others. Plan; will f/u with [employer] information and goal review in 4-5 weeks. Call to [employer] at [phone]; spoke with Camelia. 4hrs minimum first shift with minimum of 8hrs per week. Rate is $27/hr if senior living service requested or if short term, 30 days or less it is$30/hr. Call to pt to make her aware, no answer. Left message requesting a call back. Emily Quintanilla RN Kidney Transitions Specialist CKD Efficiency Manager documented in this encounter Miscellaneous Notes * Addendum Note - Emily Quintanilla RN - 09/02/2023 9:21 AM EDTAddended by: EMILY QUINTANILLA on: 09/02/2023 09:21 AM Modules accepted: Orders documented in this encounter Plan of Treatment Upcoming Encounters Date Type Department Care Team (Late st Contact Info) Description 09/21/2023 1:00 PM EST Office Visit Family Practice 65 [facility] [address] [place] [address] Bozena De DO [address] [place] [address] 09/28/2023 11:15 AM EST Office Visit Dermatology [facility] 200 [facility] [place] [address] Ambrocio Ramos MD 200 [facility] [place] [address] 09/28/2023 3:00 PM EST Cardiac Studies Cardiac Studies, [facility] [address] [place] [address] 10/28/2023 2:40 PM EST Office Visit Nephrology, [facility] [address] [facility] [place] [address] Nathaly Bone MD [address] [place] [address] 08/31/2024 2:00 PM EDT Nurse Only Ancillary 65 [facility] [address] [place] [address] College, Nurse Annual Wellness Visit [address] [address] Scheduled Referrals Name Type Priority Associated Diagnoses Orde r Schedule REMOTE PATIENT MONITORING REFERRAL Referral Within 10 days (routine) HTN, goal below 140/90 Ordered: 09/02/2023 Health Maintenance Due Date Last Done Comments [...] Primary Chronic kidney disease, Stage IV (severe) HTN, goal below 140/90 Unspecified essential hypertension documented in this encounter Care Teams Pizza Cook Relationship Specialty Start Date End Date Bozena De DO [address] [place] [address] PCP - General Family Medicine 04/22/23 documented as of this encounter
--- OUTSIDE RECORDS SUMMARY | 2023-11-10 12:11 | External Medical Summary | Summary of Care ---
Author Name Unknown Organization [facility] Address [address] [place] [address] Phone [phone] Care Team Providers Care Commercial Attorney Name Role Phone Bozena De Primary Care Provider [phone] Reason for Visit * Reason Comments Outpatient Testing Encounter Details Date Type Department Care Team (Late st Contact Info) Description 09/09/2023 10:00 AM EST Laboratory [facility] [place] [address] [place] [phone] [place], Lab Scenery [address] [place] [address] Type 2 diabetes mellitus with stage 4 chronic kidney disease, without long-term current use of insulin ([facility]); Kidney disease, chronic, stage IV (GFR 15-29 ml/min) ([facility]); Hypertensive kidney disease with chronic kidney disease stage IV ([facility]) Allergies Active Allergy Reactions Criticality Noted Date [...] Tablet before bedtime. 0 Active Afrin Nasal [place] 0.05 % Nasal Solution (oxymetazoline) Administer 2 [...] A1c goal of less than 8.0% ([facility]) Take 1 Tablet by mouth in the morning. 30 Tablet 2 06/04/2023 Active Sodium Bicarbonate 650 MG Oral TabletIndications: Kidney disease, chronic, stage IV (GFR 15-29 ml/min) ([facility]) Take 1 Tablet by mouth in the morning and 1 Tablet before bedtime. 180 Tablet 3 07/13/2023 Active LORazepam 1 MG Oral Tablet (Ativan)Indication s:Insomnia, unspecified type Use 1/2 a tablet by mouth as needed for sleep. 15 Tablet 0 08/06/2023 Active Sertraline HCl 25 MG Oral Tablet (Zoloft)Indication s:ROSANA (generalized anxiety disorder),Moderate major depression ([facility]) Take 1 Tablet by mouth in [...] and may underestimate any underlying obstruction [facility] in past . Cards-saw Dr Live [...] PM EST Office Visit Family Practice 65 [facility] [address] [place] [address] [facility] [address] 09/28/2023 11:15 AM EST Office Visit Dermatology [facility] [address] [place] [address] Ambrocio Ramos MD [address] [place] [address] 09/28/2023 3:00 PM EST Cardiac Studies Cardiac Studies, [facility] [address] [facility] [place] [address] 10/28/2023 2:40 PM EST Office Visit Nephrology, [facility] [address] [place] [address] Nathaly Bone MD [address] [place] [address] 08/31/2024 2:00 PM EDT Nurse Only Ancillary 65 [facility] [address] [place] [address] College, Nurse Annual Wellness Visit [address] [place] [address] Pending Results Name Type Priority Associated Diagnoses Date /Time HEMOGLOBIN A1C Lab Routine Type 2 diabetes mellitus with stage 4 chronic kidney disease, without long-term current use of insulin ([facility]) 09/09/2023 10:00 AM EST PTH Lab Routine Kidney disease, chronic, stage IV (GFR 15-29 ml/min) ([facility]) 09/09/2023 10:00 AM EST PHOSPHORUS Lab Routine Kidney disease, chronic, stage IV (GFR 15-29 ml/min) ([facility]) 09/09/2023 10:00 AM EST BASIC METABOLIC PANEL Lab Routine Hypertensive kidney disease with chronic kidney disease stage IV ([facility]) 09/09/2023 10:00 AM EST Health Maintenance Due Date Last Done Comments [...] Diagnoses Diagnosis Type 2 diabetes mellitus with stage 4 chronic kidney disease, without long-term current use of insulin (HCC) Kidney disease, chronic, stage IV (GFR 15-29 ml/min) (HCC) Chronic kidney disease, Stage IV (severe) Hypertensive kidney disease with chronic kidney disease stage IV (HCC) Unspecified hypertensive kidney disease with chronic kidney disease stage I through stage IV, or unspecified documented in this encounter Care Teams Commercial Attorney Relationship Specialty Start Date End Date Bozena De DO [address] [place] [address] PCP - General Family Medicine 04/22/23 documented as of this encounter
--- OUTSIDE RECORDS SUMMARY | 2023-11-10 12:11 | External Medical Summary ---
Author Name Unknown Address Unknown Organization K09:LABORATORY [facility] [place] [address] Laboratory Report Ordering Provider Test Date Status PRAVIN ACOSTA 09/09/2023 10:00:50 Final Observation Date Value Abnormality Reference (Units ) Status Phosphate 09/09/2023 10:00:50 4.4 2.5-4.8 (m g/dL) Final Performing Location [facility] [place] [address]
--- OUTSIDE RECORDS SUMMARY | 2023-11-10 12:11 | External Medical Summary | Summary of Care ---
Author Name Unknown Organization [facility] Address [address] [place] [address] Phone [phone] Care Team Providers Care Razor Grinder Name Role Phone Bozena De DO Primary Care Provider [phone] Reason for Visit * Reason Comments Follow Up Encounter Details Date Type Department Care Team Description 08/06/2023 Office Visit Family Practice 65 [facility] [address] [place] [phone] Bozena De DO [address] [place], [place] [phone] Seizure disorder (HCC)*; Type 2 diabetes mellitus with hemoglobin A1c goal of less than 8.0% ([facility]); Kidney disease, chronic, stage IV (GFR 15-29 ml/min) ([facility]); ROSANA (generalized anxiety disorder); Moderate major depression ([facility]); Insomnia, unspecified type Allergies Active Allergy Reactions [...] Tablet before bedtime. 0 Active Afrin Nasal [place] 0.05 % Nasal Solution (oxymetazoline) Administer 2 [...] 8.0% ([facility]) Take 1 Tablet by mouth in the morning. 30 Tablet 2 06/04/2023 Active Sodium Bicarbonate 650 MG Oral TabletIndications :Kidney disease, chronic, stage IV (GFR 15-29 ml/min) ([facility]) Take 1 Tablet by mouth in the morning and 1 Tablet before bedtime. 180 Tablet 3 07/13/2023 Active LORazepam 1 MG Oral Tablet (Ativan)Indicatio ns:Insomnia, unspecified type Use 1/2 a tablet by mouth as needed for sleep. 15 Tablet 0 08/06/2023 Active Sertraline HCl 25 MG Oral Tablet (Zoloft)Indicatio ns:ROSANA (generalized anxiety disorder),Moderat e major depression ([facility]) Take 1 Tablet by mouth in [...] dx 2005, follows w/Dr. Sheldon stable on topPegg'd Well adult exam 12/03/2021 Overview: 10/22 PFTs -decreasedCONCLUSION: Spirogram is within acceptable limits. There is mild decrease in flow at the level of the small airways. Expiratory time is suboptimal and may underestimate any underlying obstruction [facility] in past . Cards-saw Dr [...] mRNA, LNP-s, No Pre serve, 2-Dose Series ([employer]) 02/05/2021,01/15/2021 COVID-19, LNP-s, No Preserve , Torito-sucrose, Ages 12+ ([employer]) 05/20/2022 Pneumococcal Conjugate Vacc, 13 Valent (Prevnar) [...] for sleep. 15 Tablet 0 Afrin Nasal [place] 0.05 % Nasal Solution (oxymetazoline) Administer 2 [...] Past Medical History: Diagnosis Date Breast cancer ([facility]) 2000 right breast Ductal CA Dyslipidemia, goal LDL below 130 Family history of breast cancer in mother 10/23/2022 HTN, goal below 140/90 Hypothyroidism Kidney disease, chronic, stage IV (GFR 15-29 ml/min) ([facility]) 12/04/2021 Other chronic sinusitis 10/23/2022 Personal history of malignant neoplasm of breast 04/24/2022 2000 Retinopathy of left eye 05/05/2023 severe Seizure disorder ([facility]) dx 2005, follows w/Dr. Sheldon, stable on topamax Type 2 diabetes mellitus ([facility]) Type 2 diabetes mellitus with hemoglobin A1c goal of less than 8.0% ([facility]) 01/07/2017 Past Surgical History: Procedure Laterality Date CARDIAC CATHETERIZATION REPORT CATARACT SURGERY,COMPLEX Left 01/2017 Dr Turk COLONOSCOPY MASTECTOMY, PARTIAL Right 2000 MISCELLANEOUS ORDER ([facility] ONLY) Right lumpectomy breast [...] (Other) Father back surgery Heart Disorder Father [place], passed at 63 Addiction problem Sister both sisters in [place]. Other (ckd) Sister Addiction problem Sister Lung cancer Brother 50 Heart Disorder Grandmother (Maternal) [place] Heart Disorder Grandmother (Paternal) "Dropsy" Heart Disorder Grandfather (Paternal) [place] Family Status Relation Status Mo Fa Sis [...] 8.0% ([facility]) Plan: No changes for now. Remain on Jardiance. (N18.4) Kidney disease, chronic, stage IV (GFR 15-29 ml/min) ([facility]) Plan: Pt will f/u with nephrology. Did just receive BP monitor. BP elevated. Advised to check and keep log. Will message CM to f/u with her. (F41.1) ROSANA (generalized anxiety disorder) (F32.1) Moderate major depression ([facility]) Plan: Sertraline HCl 25 MG Oral Tablet [...] Annual Wellness Visit [address] [place] [address] 09/21/2023 Office Visit Family Medicine Bozena De DO [address] [place] [address] 09/28/2023 Office Visit Dermatology Ambrocio Ramos MD [address] [place] [address] 09/28/2023 Cardiac Studies Cardiac Studies 10/26/2023 Office Visit Nephrology Nathaly Bone MD [address] [place], [place] [phone] Pending Results Name Type Priority Associated Diagnoses [...] type documented in this encounter Care Teams Razor Grinder Relationship Specialty Start Date End Date Bozena De, DO [address] [place] [address] PCP - General Family Medicine 04/22/23 documented as of this encounter
--- OUTSIDE RECORDS SUMMARY | 2023-11-10 12:12 | External Medical Summary | Summary of Care ---
Author Name Unknown Organization [facility] Address [address] [place] [address] Phone [phone] Care Team Providers Care Disability Hearing Officer Name Role Phone Bozena De DO Primary Care Provider Reason for Visit * Reason Onset Date Comments Appointment 05/06/2023 3 day urgent ref erral - appt Encounter Details Date Type Department Care Team Description 05/06/2023 Telephone Dermatology [facility] [address] [facility] [address] Services, Scheduling [address] [place] [address] Appointment (3 day urgent referral - appt) Allergies Active Allergy Reactions Severity Noted Date Comments Baclofen Neuro complications (Please comment) 08/18/2022 confusion Phenytoin Sodium Extended Itching Low 01/07/2017 Fentanyl 04/24/2022 Lamotrigine 01/07/2017 Midazolam Neuro complications (Please comment) High 08/18/2022 confusion documented as of this encounter (statuses as of 08/05/2023) Medications Medication Sig Dispensed Refills Start Date [...] Tablet before bedtime. 0 Active Afrin Nasal [place] 0.05 % Nasal Solution (oxymetazoline) Administer 2 [...] the morning. 90 Tablet 3 10/13/2022 Active Escitalopram Oxalate 10 MG Oral Tablet [...] needed (cough/wheeze). 18 g 3 04/22/2023 Active Hospital, Clinic, or Other Facility Administered [...] as of this encounter (statuses as of 08/05/2023) Active Problems Problem Noted Date Hypertensive kidney [...] dx 2005, follows w/Dr. Sheldon, stable on [employer] Well adult exam 12/03/2021 Overview: 10/22 PFTs -decreasedCONCLUSION: Spirogram is within acceptable limits. There is mild decrease in flow at the level of the small airways. Expiratory time is suboptimal and may underestimate any underlying obstruction [facility] in past . Cards-saw Dr [...] as of this encounter (statuses as of 08/05/2023) Immunizations Name Administration Dates Next Due COVID-19 mRNA, LNP-s, No Pre serve, 2-Dose Series (Pfizer) 02/05/2021,01/15/2021 COVID-19, LNP-s, No Preserve , Torito-sucrose, Ages 12+ (Pfizer) 05/20/2022 Pneumococcal Conjugate Vacc, 13 Valent (Prevnar) 09/21/2014 Pneumococcal Conjugate Vacci ne, 7 Valent 11/01/2013 Pneumococcal Polysaccharide PPV23 (Pneumovax) 01/07/2017,11/01/2005 Seasonal Influenza Virus Vac cine, Unspecified Formulation 08/24/2016,09/13/2015,08/16/2014,08/16 Seasonal Influenza, Quadriva lent Hd (Fluzone Hd) 10/09/2022 Seasonal Influenza, Quadriva lent, No Preserve, IM [...] got money to buy more. Never true 07/15/2023 Within the past 12 months, t he food you bought just didn't last and you didn't have money to get more. Never true 07/15/2023 Sex Assigned at Date Recorded Female 02/24/2023 3:46 PM E DT Job Start Date Occupation Industry Not on file Not on file Not on file documented as of this encounter Miscellaneous Notes * Telephone Encounter - Janeth Turcios, COLBY - 05/10/2023 8:22 AM EDT Again, Called cell, no answer and voice mail not set up yet. Called home #, left message to return call to schedule appt. * Telephone Encounter - COLBY Hanna - 05/07/2023 3:58 PM EDT Called cell, no answer and voice mail not set up yet. Called home #, left message to return call toschedule appt. * Telephone Encounter - COLBY Butcher - 05/06/2023 5:55 PM EDT Patient called back - 5:55 PM to schedule 3 day urgent ref appt in [facility]. Please call either Home/Cell Thank you. COLBY Butcher documented in this encounter Plan of Treatment Upcoming Encounters Date Type Specialty Care Team Description 08/06/2023 Office Visit Family Medicine Bozena De, DO [address] [place] [address] 08/31/2023 Nurse Only [facility], Nurse Annual Wellness Visit [address] [facility] [address] [place] [address] 09/28/2023 Office Visit Dermatology Ambrocio Ramos MD [address] [place] [address] 09/28/2023 Cardiac Studies Cardiac Studies 10/26/2023 Office Visit Nephrology Nathaly Bone MD [address] [place] [address] [place] [address] Health Maintenance Due Date Last Done Comments [...] filedocumented as of this encounter Care Teams Disability Hearing Officer Relationship Specialty Start Date End Date Bozena De, [address] [place] [address] PCP - General Family Medicine 04/22/23 documented as of this encounter
--- OUTSIDE RECORDS SUMMARY | 2023-11-10 12:12 | External Medical Summary | Summary of Care ---
Author Name Unknown Organization [facility] Address [address] [place] [address] Phone [phone] Care Team Providers Care Merchandise Planning Manager Name Role Phone Bozena De DO Primary Care Provider + [phone] Reason for Visit * Reason Onset Date Comments Appointment 08/03/2023 Appt today Encounter Details Date Type Department Care Team Description 08/03/2023 Telephone Family Practice [address] [facility] [address] [place] [phone] Bozena De DO [address] [place], [place] [phone] Appointment (Appt today) Allergies Active Allergy Reactions Severity Noted Date Comments Baclofen Neuro complications (Please comment) 08/18/2022 confusion Phenytoin Sodium Extended Itching Low 01/07/2017 Fentanyl 04/24/2022 Lamotrigine 01/07/2017 Midazolam Neuro complications (Please comment) High 08/18/2022 confusion documented as of this encounter (statuses as of 08/03/2023) Medications Medication Sig Dispensed Refills Start Date [...] Tablet before bedtime. 0 Active Afrin Nasal [place] 0.05 % Nasal Solution (oxymetazoline) Administer 2 [...] needed (cough/wheeze). 18 g 3 04/22/2023 Active LORazepam 1 MG Oral Tablet (Ativan)Indication s:Insomnia, unspecified type Use 1/2 a tablet by mouth as needed for sleep. 15 Tablet 0 05/28/2023 Active Empagliflozin 10 MG Oral Tablet (Jardiance)Indicat [...] as of this encounter (statuses as of 08/03/2023) Active Problems Problem Noted Date Hypertensive kidney disease with chronic kidney disease stage IV 02/12/2023 Moderate persistent asthma without compl ication 11/04/2022 Other chronic sinusitis 10/23/2022 Family history of breast cancer in [place] 10/23/2022 Benign breast cyst in female, [...] and may underestimate any underlying obstruction [facility] in past . Cards-saw Dr Live in [...] as of this encounter (statuses as of 08/03/2023) Immunizations Name Administration Dates Next Due COVID-19 [...] encounter Miscellaneous Notes * Telephone Encounter - COLBY Sauceda - 08/03/2023 3:13 PM EDT Pt showed up at 2:50 for her 2:20 appointment. Pt was asked to reschedule Pt become agitated and said "They should have told me that when I talkedto them earlier". Pt stated she is on a fixed income and cannot afford to come up here when not needed. Pt stated she didn't think 64 was the right fit for her and she will call us to reschedule once shegets her bp cuff. * Telephone Encounter - Autumn Fofana LPN - 08/03/2023 2:08 PM EDT Appointment is for follow up, advised to keep appointment. Thank you * Telephone Encounter - COLBY Sauceda - 08/03/2023 11:31 AM EDT Pt calling to advise that she has not received her BP cuff yet from supplier. She was to have an appt today and bring her bp cuff with her. Do you want her to keep the appt for today even tho she hasn't received the cuff, or should she keep the appt Please advise and pt can be contacted. documented in this encounter Plan of Treatment Upcoming Encounters Date Type Specialty Care Team Description 08/31/2023 Nurse Only [employer], Nurse Annual Wellness Visit [address] [facility] [address] [place] [address] 09/28/2023 Office Visit Dermatology Ambrocio Ramos MD [address] [place] [facility] [place] [address] 09/28/2023 Cardiac Studies Cardiac Studies 10/26/2023 Office Visit Nephrology Nathaly Bone MD [address] [place] [address] Health Maintenance Due Date Last [...] filedocumented as of this encounter Care Teams Merchandise Planning Manager Relationship Specialty Start Date End Date Bozena De, [address] [place] [address] PCP - General Family Medicine 04/22/23 documented as of this encounter
--- OUTSIDE RECORDS SUMMARY | 2023-11-10 12:12 | External Medical Summary | Summary of Care ---
Author Name Unknown Organization [facility] Address [address] [place] [address] Phone [phone] Care Team Providers Care Crepe Sole Scourer Name Role Phone Bozena De DO Primary Care Provider + [phone] Reason for Visit * Reason Onset Date Comments Appointment 08/03/2023 Appt today Encounter Details Date Type Department Care Team Description 08/03/2023 Telephone Family Practice [address] [facility] [address] [place] [phone] Bozena De DO [address] [place], [place] [phone] Appointment (Appt today) Allergies Active Allergy Reactions [...] Tablet before bedtime. 0 Active Afrin Nasal [place] 0.05 % Nasal Solution (oxymetazoline) Administer 2 [...] appointment. Pt was asked to reschedule Pt stated "They should have told me that when I talked to them earlier".Pt was upset and stated she did not think [address] was right for her and she will call us to reschedule. * Telephone Encounter - Autumn Fofana LPN [...] Annual Wellness Visit [address] [place] [address] 09/28/2023 Office Visit Dermatology Ambrocio Ramos MD [address] [place] [address] 09/28/2023 Cardiac Studies Cardiac Studies 10/26/2023 Office Visit Nephrology Nathaly Bone MD [address] [place] [address] Health Maintenance Due Date Last Done [...] 04/22/2023 TSH 04/22/2024 04/22/2023, 07/2 , 06/15/2020 DIABETES-EYE EXAM 06/08/2024 06/08/2023, , 12/24/2021 [...] filedocumented as of this encounter Care Teams Crepe Sole Scourer Relationship Specialty Start Date End Date Bozena De, DO [address] [facility] [place] [address] PCP - General Family Medicine 04/22/23 documented as of this encounter
--- OUTSIDE RECORDS SUMMARY | 2023-11-10 12:12 | External Medical Summary | Summary of Care ---
Author Name Unknown Organization [facility] Address [address] [place] [address] Phone [phone] Care Team Providers Care Senior Manager Quality Assurance Name Role Phone Bozena De DO Primary Care Provider + [phone] Reason for Visit * Reason Onset Date Comments Appointment 08/03/2023 Appt today Encounter Details Date Type Department Care Team Description 08/03/2023 Telephone Family Practice 65 [facility] [address] [place] [phone] Bozena De DO [address] [place], [place] [phone] Appointment (Appt today) Allergies Active Allergy Reactions [...] Tablet before bedtime. 0 Active Afrin Nasal [place] 0.05 % Nasal Solution (oxymetazoline) Administer 2 [...] hemoglobin A1c goal of less than 8.0% ([facility]) Take 1 Tablet by mouth in the morning. 30 Tablet 2 06/04/2023 Active Sodium Bicarbonate 650 MG Oral TabletIndications: Kidney disease, chronic, stage IV (GFR 15-29 ml/min) ([facility]) Take 1 Tablet by mouth in [...] any underlying obstruction [facility] in past . 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 Annual Wellness Visit [address] [facility] [address] [facility], [place] [address] 09/28/2023 Office [facility] [address] [facility] [address] 09/28/2023 Cardiac Studies Cardiac Studies 10/26/2023 Office Visit Nephrology Nathaly Bone MD [address] [place] [address] [place] [address] Health Maintenance Due Date [...] 04/22/2023 PTH 04/22/2024 04/22/2023 TSH 04/22/2024 04/22/2023, 072 , 06/15/2020 DIABETES-EYE EXAM 06/08/2024 06/08/2023, , [...] filedocumented as of this encounter Care Teams Senior Manager Quality Assurance Relationship Specialty Start Date End Date Bozena De, DO [address] [place] [address] PCP - General Family Medicine 04/22/23 documented as of this encounter
--- OUTSIDE RECORDS SUMMARY | 2023-11-10 12:13 | External Medical Summary | Summary of Care ---
Author Name Unknown Organization [facility] Address [address] [place] [address] Phone [phone] Care Team Providers Care Pension Fund Manager Name Role Phone Bozena De DO Primary Care Provider [phone] Reason for Referral * Evaluate & Treat - Unlimited Visits (Within 10 days (routine)) - Authorized Specialty Diagnoses / Procedures Referred By Steph villatoro Referred To Contact Physical Therapy / Physical Medicine And Rehab Diagnoses Chronic pain of both shoulders Rotator cuff tendonitis, right Bozena De DO [address] [place] [address] Referral ID Status Reason Start Date Expiration Date Visits Requested Visits Authorized [id number] Authorized Specialty Services Required 07/15/[phone] Question Answer Referral Priority Within 10 days (routine) Comments Vital PT Reason for Visit * Reason Onset Date Comments Follow Up Medication Administration 07/15/2023 Flu an d/or Pneumo Inj Encounter Details Date Type Department Care Team Description 07/15/2023 Office Visit Family Practice [address] [place] [address] [place] [id number] Bozena De DO [address] [place] [address] Chronic pain of both shoulders*; Rotator cuff tendonitis, right; Type 2 diabetes mellitus with stage 4 chronic kidney disease, without long-term current use of insulin (HCC); HTN, goal below 140/90; Need for prophylactic vaccination and inoculation against influenza; Risk and functional assessment Allergies Active Allergy Reactions Severity Noted Date Comments Baclofen Neuro complications (Please comment) 08/18/2022 confusion Phenytoin Sodium Extended Itching Low 01/07/2017 Fentanyl 04/24/2022 Lamotrigine 01/07/2017 Midazolam Neuro complications (Please comment) High 08/18/2022 confusion documented as of this encounter (statuses as of 07/16/2023) Medications Medication Sig Dispensed Refills Start Date End Date Status Aspirin 81 MG Tablet Take 1 Tablet by mouth in the morning. 0 Active topiramate (TOPAMAX) 200 MG Tablet Take 1 Tab by mouth 2 times a day. 60 Tab 5 7 Active Zinc 50 MG Oral Tablet Take 1 Tablet by mouth in the morning. 0 Active Vitamin D3 50 MCG (2000 UT) Oral Capsule Take 1 Capsule by mouth in the morning. 0 Active Acetaminophen 500 MG Oral Tablet Take 2 Tablets by mouth at bedtime. 0 Active Claritin-D 12 Hour 5-120 MG Tablet Extended Release 12 Hour (loratadine-pseudoeph edrine ER 5-120 mg per tab) Take 1 Tablet by mouth in the morning and 1 Tablet before bedtime. 0 Active Afrin Nasal Bradford 0.05 % Nasal Solution (oxymetazoline) Administer 2 Sprays into nostril in the morning and 2 Sprays before bedtime. 0 Active Methocarbamol 500 MG Oral Tablet (Robamol) Take 1 Tablet by mouth 2 times a day as needed. 0 Active Ondansetron HCl 4 MG Oral Tablet Take by mouth 1 Tablet every 8 hours as needed for Nausea. 20 Tablet 0 2 Active Calcium 600 MG Oral Tablet Take 1 Tablet (600 mg) by mouth in the morning. 90 Tablet 3 2 Active Escitalopram Oxalate 10 MG Oral Tablet (Lexapro) Take 1 Tablet (10 mg) by mouth in the morning. 90 Tablet 3 2 Active Oxybutynin Chloride ER 10 MG Oral Tablet Extended Release 24 Hour (Ditropan XL) Take 1 Tablet (10 mg) by mouth in the morning. 90 Tablet 3 2 Active Levothyroxine Sodium 75 MCG Oral Tablet (Levoxyl)Indications: Hypothyroidism Take 1 Tablet (75 mcg) by mouth in the morning. As directed.. 90 Tablet 3 2 Active Atorvastatin Calcium 40 MG Oral Tablet (Lipitor)Indications: Dyslipidemia, goal LDL below 100 Take 1 Tablet (40 mg) by mouth in the morning. 90 Tablet 3 2 Active amLODIPine Besylate 10 MG Oral Tablet (Norvasc) Take 1 Tablet by mouth in the morning. 90 Tablet 3 2 Active Breo Ellipta 200-25 MCG/ACT Inhalation Aerosol Powder Breath ActivatedIndications: Moderate persistent asthma without complication inhale 1 puff by mouth and INTO THE LUNGS every morning 60 Blister Dosing Unit 2 3 Active Additional Information Patient taking differently: 1 Puff Inhalation HS, Reported on 04/22/2023 Calcium Carbonate Antacid 500 MG Oral Tablet Chewable Take 1 Tablet by mouth as needed for Heartburn. 0 3 Active Atenolol 50 MG Oral Tablet (Tenormin) Take 1 Tablet by mouth in the morning. 90 Tablet 3 3 Active Albuterol Sulfate HFA 108 (90 Base) MCG/ACT Inhalation Aerosol SolutionIndications:M oderate persistent asthma without complication Inhale 2 Puffs by mouth every 6 hours as needed (cough/wheeze). 18 g 3 3 Active LORazepam 1 MG Oral Tablet (Ativan)Indications:I nsomnia, unspecified type Use 1/2 a tablet by mouth as needed for sleep. 15 Tablet 0 3 Active Empagliflozin 10 MG Oral Tablet (Jardiance)Indication s:Type 2 diabetes mellitus with hemoglobin A1c goal of less than 8.0% ([facility]) Take 1 Tablet by mouth in the morning. 30 Tablet 2 3 Active Sodium Bicarbonate 650 MG Oral TabletIndications:Kid tyler disease, chronic, stage IV (GFR 15-29 ml/min) ([facility]) Take 1 Tablet by mouth in the morning and 1 Tablet before bedtime. 180 Tablet 3 3 Active Additional Information Patient not taking.Reported on 07/15/2023 Omeprazole 20 MG Oral Capsule Delayed Release (PriLOSEC)Indications :Chronic cough Take by mouth 1 Capsule in the morning. 1 hour before the first meal of the day. 90 Capsule 1 2 07/15/20 23 Discontinu ed(Medicat ion List Clean Up) Repaglinide 2 MG Oral Tablet (Prandin)Indications: Type 2 diabetes mellitus with hemoglobin A1c goal of less than 8.0% (HCC) take 2 tablets by mouth before meals up to four times a day . HOLD IF FS IS LESS THAN 130 720 Tablet 1 3 07/15/20 Discontinu ed(Medicat ion List Clean Up) Zoster Vac Recomb Adjuvanted 50 MCG/0.5ML Intramuscular Suspension Reconstituted (Shingrix)Indications :Need for vaccination for zoster Inject 0.5 mL into a large muscle now and repeat dose in 60 to 180 days 1 Each 0 3 07/15/20 Discontinu ed(Medicat ion List Clean Up) Cephalexin 500 MG Oral Capsule (Keflex)Indications:S econdary impetiginization 1 capsule twice daily for 1 week 14 Capsule 0 3 07/15/20 Discontinu ed(Medicat ion List Clean Up) Hospital, Clinic, or Other Facility Administered Medication [...] as of this encounter (statuses as of 07/16/2023) Active Problems Problem Noted Date Hypertensive kidney [...] suboptimal and may underestimate any underlying obstruction [facility] in past . Cards-saw Dr Live in [...] as of this encounter (statuses as of 07/16/2023) Immunizations Name Administration Dates Next Due COVID-19 [...] Sign Reading Time Taken Comments Blood Pressure 148/84 07/15/2023 2:10 PM EDT Pulse 56 07/15/2023 2:10 PM EDT Temperature 36.8 C (98.2 F) 07/15/2023 2:10 PM ED T Respiratory Rate 13 07/15/2023 2:10 PM EDT Oxygen Saturation 99% 07/15/2023 2:10 PM EDT Inhaled Oxygen Concentration - - Weight 50.8 kg (111 lb 14.4 oz) 07/15/2023 2:10 PM EDT Height 140.3 cm (4' 7.25") 07/15/2023 2:10 PM ED T Body Mass Index 25.77 07/15/2023 2:10 PM EDT documented in this encounter Patient Instructions * Patient Instructions* Autumn Fofana LPN - 07/15/2023 2:04 PM EDT Patient Instructions - Fall Prevention (This education is for all patients over 65 regardless of symptoms) Remember to take your current medications as prescribed. In order to prevent falls, you are encouraged to: Exercise Utilize assistive/adaptive devices Avoid multifocal lenses when walking Avoid hazards in home Maintain a regular toileting schedule Any questions please contact our office. Preventing Falls in the Home (This education is for all patients over 65 regardless of symptoms) As you get older, falls are more likely. Thats because your reaction time slows. Your muscles and joints may also get stiffer, making them less flexible. Illness, medications, and vision changes can also affect your balance. A fall could leave you unable to live on your own. To make your home safer, follow these tips: Floors Put nonskid pads under area rugs Remove throw rugs Replace worn floor coverings Tack carpets firmly to each step on carpeted stairs. Put nonskid strips on the edges of uncarpeted stairs Keep floors and stairs free of clutter and cords Arrange furniture so there are clear pathways Clean up any spills right away Bathrooms Install grab bars in the tub or shower Apply nonskid strips or put a nonskid rubber mat in the tub or shower Sit on a bath chair to bathe Use bathmats with nonskid backing Lighting Keep a flashlight in each room Put a nightlight along the pathway between the bedroom and the bathroom [employer] Patient Education Copyright 2008 - 2010 [employer] except where otherwise noted Preventing Falls: Exercises to Improve Balance, Flexibility, Strength, and Staying Power (This education is for all patients over 65 regardless of symptoms) Certain types of exercises may help make you less likely to fall. Try the ones below. Or do other exercises that your healthcare provider suggests. Depending on your health, you may need to start slowly. Dont let that stop you. Even small amounts of exercise can help you. Be sure to talk to yourhealthcare provider before starting any exercise program. Improve Balance Many types of exercise can help improve balance. Pasquale chi and yoga are good examples. Heres another one to try. You can do it anytime and almost anywhere. Stand next to a counter or solid support. Push yourself up onto your tiptoes. Hold for 5 seconds. If you start to lose your balance, hold on to the counter. Rest and repeat 5 times. Work up to holding for 20 to 30 seconds, if you can. Increase Flexibility Being more flexible makes it easier for you to move around safely. Try exercises like the seated hamstring stretch. Sit in a chair and put one foot on a stool. Straighten your leg and reach with both hands down either side of your leg. Reach as far down your leg as you can. Hold for about 20 seconds. Go back to the starting position. Then repeat 5 times. Switch legs. Build Strength Resistance exercises help build strength. You can do them without equipment. Or you can use weights, elastic bands, or special machines. One such exercise is called the biceps curl. You can hold a 1 pound weight or even a can of soup. Do this exercise at least 3 times a week. Strive for everyday. Sit up straight in a chair. Keep your elbow close to your body and your wrist straight. Bend your arm, moving your hand up to your shoulder. Then slowly lower your arm. Repeat 5 times. Switch to the other arm. Build Your Staying Power Aerobic exercises make your heart and lungs stronger so you can keep moving longer. Walking and swimming are two of the best types of exercises you can do. Using a stationary bike is great, too. Find an aerobic exercise that you enjoy. Start slowly and build up. Even 5 minutes is helpful. Aimfor a goal of 30 minutes, at least 3 times a week. You dont have to do 30 minutes in one session. Break it up and walk a little throughout the day. More Helpful Tips Start easy. Slowly work up to doing more. Talk with your healthcare provider about the best exercises for you. Call senior centers or health clubs about exercise programs. If needed, have a family member watch you walk every so often to check your stability. Exercise with a friend. Choose an activity you both enjoy. Try exercises that you can do anytime, anywhere. Here are two examples. Have someone with you when you first try these: Practice walking by placing one foot right in front of the other. Stand up and sit down 10 times. Repeat this throughout the day. [employer] Patient Education Copyright 2008 - 2010 [employer] except where otherwise noted. Preventing Falls: Moving Safely Using a Cane or Walker (This education is for all patients over 65 regardless of symptoms) Keep the cane away from your feet so you dont trip. A walking aid, such as a cane or walker, can help you stay more independent and avoid falls. Remember to keep your walking aid within easy reach when youre in a chair or in bed. And learn how to use it safely so you dont injure yourself. Using a Cane If you have a stronger side, hold the cane on that side. Get your balance. Move the cane and your weaker leg forward. Support your weight on both the cane and your weaker side. Step with your stronger leg. Start again from step 1. If youre using a folding walker, be sure you know how to lock it open. Check that its locked open before each use. Using a Walker Roll the walker (or lift it, if youre using one without wheels) forward about 12 inches. Step forward with your weaker leg first. Use the walker to help keep your balance. Bring your other foot forward to the center of the walker. Start again from step 1. Helpful Tips Check with your healthcare provider about the right walking aid to use. Ask about a walker with a seat attached. Check the tips of your cane or walker to make sure they have nonskid covers. Move slowly from room to room. Dont gibson. Sit down to get dressed. Use a viridiana pack or backpack to keep your hands free. Get help for jobs that mean climbing, even on a stepstool. [employer] Patient Education Copyright 2008 - 2010 [employer] except where otherwise noted. Urinary Incontinence Plan of Care Documentation: (This education is for all patients over 65 regardless of symptoms) Current medications reconciled. Patient encouraged to: Practice kegal exercises Provide education materials Use the restroom every 2 hours throughout the day Limit caffeine, alcohol, spicy foods and acidic foods Keep a bladder diary Limit fluid intake 3-4 hours before bed Lose weight Prevent constipation Take fluid pills at a time when you can get to the bathroom quickly Control sugar better if diabetic Limit fluid intake to 60 oz. per day Wear support stockings (TEDs)if you have edema Autumn Fofana LPN 07/15/2023 Kegel Exercises Kegel exercises dont require special clothing or equipment. Theyre easy to learn and simple to do. And if you do them right, no one can tell youre doing them, so they can be done almost anywhere. Your doctor, nurse, or physical therapist can answer any questions you have and help you get started. A Weak Pelvic Floor The pelvic floor muscles may weaken due to aging, and vaginal childbirth, injury, surgery, chronic cough, or lack of exercise. If the pelvic floor is weak, your bladder and other pelvic organs may sag out of place. The urethra may also open too easily and allow urine to leak out. Kegel exercises can help you strengthen your pelvic floor muscles so they can better support the pelvic organs and control urine flow. How Kegel Exercises Are Done Try each of the Kegel exercises described below. When youre doing them, try not to move your leg, buttock, or stomach muscles. While youre urinating, try to stop the flow of urine. Start and stop it as often as you can. Contract as if you were stopping your urine stream, but do it when youre not urinating. Tighten your rectum as if trying not to pass gas. Contract your anus, but dont move your buttocks. Helpful Hints Do your Kegels as often as you can. The more you do them, the faster youll feel the results. Pick an activity you do often as a reminder. For instance, do your Kegels every time you sit down. Tighten your pelvic floor before you sneeze, get up from a chair, cough, laugh, or lift. This protects your pelvic floor from injury and can help prevent urine leakage. Try to hold each Kegel for a slow count to five. You probably wont be able to hold them for thatlong at first, but keep practicing. It will get easier as your pelvic floor gets stronger. Eventually, special weights that you place in your vagina may be recommended to help make your Kegels even more effective. [employer] Patient Education Copyright 2009 - 2010 [employer] except where otherwise noted. Here are some helpful tips for your urinary incontinence: (This education is for all patients over 65 regardless of symptoms) Practice Kegel exercises Use the restroom every 2 hours throughout the day Limit caffeine, alcohol, spicy foods, and acidic foods Keep a bladder diary Limit fluid intake 3-4 hours before bed Lose weight Prevent constipation Take fluid pills at a time when can get to the bathroom quickly Control sugar better if diabetic Limit fluid intake to 60 oz. per day Any questions, please feel free to contact our office. ~~PATIENT INSTRUCTIONS FOR FLU SHOT~~ Possible side effects of influenza vaccine, (flu shot), are usually mild and include: 1. Soreness or redness at injection site 2. Low grade fever 3. Body aches You may use Tylenol/Acetaminophen as needed for these symptoms. LET YOUR DOCTOR KNOW IMMEDIATELY IF YOU HAVE DIFFICULTY BREATHING OR SWALLOWING, EXPERIENCE ITCHINGOF FEET OR HANDS, HAVE SWELLING OF EYES, FACE OR INSIDE OF NOSE. documented in this encounter Progress Notes * Autumn Fofana LPN - 07/16/2023 5:17 PM EDT Order placed thru [facility]. * Bozena Polancoemmanuelsamina, - 07/15/2023 2:13 PM EDT SUBJECTIVE: Chief Complaint Patient presents with Follow Up Medication Administration Flu and/or Pneumo Inj HPI: Poppy Mars is a 73 year old female who presents today to discuss her medications. Pt notes that she does not understand why she was prescribed sodium bicarb. She states that she read the side effects that it would cause swelling and she does not want to take it. She states she thought she should be stopping medication rather than taking more medication. She is frustrated. PHM: Patient Active Problem List Diagnosis Code [...] with chronic kidney disease stage IV ([facility]) I12.9, N18.4 Current Outpatient Medications Medication Sig [...] and 1 Tablet before bedtime. Afrin Nasal Bradford 0.05 % Nasal Solution (oxymetazoline) Administer 2 Sprays into nostril in the morning and 2 Sprays before bedtime. Methocarbamol 500 MG Oral Tablet (Robamol) Take 1 Tablet by mouth 2 times a day as needed. Ondansetron HCl 4 MG Oral Tablet Take by mouth 1 Tablet every 8 hours as needed for Nausea. 20 Tablet 0 Calcium 600 MG Oral Tablet Take 1 [...] hours as needed (cough/wheeze). 18 g 3 LORazepam 1 MG Oral Tablet (Ativan) Use 1/2 a tablet by mouth as needed for sleep. 15 Tablet 0 Empagliflozin 10 MG Oral Tablet (Jardiance) Take 1 Tablet by mouth in the morning. 30 Tablet 2 Sodium Bicarbonate 650 MG Oral Tablet Take 1 Tablet by mouth in the morning and 1 Tablet before bedtime. (Patient not taking: Reported on 07/15/2023) 180 Tablet 3 Current Facility-Administered Medications Medication Dose Route Frequency [...] COLONOSCOPY MASTECTOMY, PARTIAL Right 2000 MISCELLANEOUS ORDER ([facility] ONLY) Right lumpectomy breast REMOVAL OF OVARY(S) 1975 TOTAL ABD HYSTERECTOMY W/WO REMOVAL OF TUBE(S) Review of patient's allergies indicates: Allergen Reactions Midazolam Neuro complications (Please comment) confusion Baclofen Neuro complications (Please comment) confusion Fentanyl Lamictal [Lamotrigine] Dilantin [Phenytoin Sodium Extended] Itching Family History Problem Relation Age of Onset Breast Cancer Mother 66 Other (Other) Father back surgery Heart Disorder Father [place], passed at 63 Addiction problem Sister both sisters in [place]. Other (ckd) Sister Addiction problem Sister Lung cancer Brother 50 Heart Disorder Grandmother (Maternal) [place] Heart Disorder Grandmother (Paternal) "Dropsy" Heart Disorder Grandfather (Paternal) [place] Family Status Relation Status Mo Fa Sis [...] color change, pallor and rash. OBJECTIVE: BP 148/84 | Pulse 56 | Temp 36.8 C (98.2 F) | Resp 13 | Ht 1.403 m (4' 7.25") | Wt 50.8 kg (111lb 14.4 oz) | SpO2 99% | BMI 25.77 kg/m | BSA 1.41 m PHYSICAL EXAM: [...] tenderness or deformity. Normal range of motion. Comments: +acevedo of right shoulder Skin: General: Skin is warm and dry. Coloration: Skin is not pale. Findings: No erythema or rash. Neurological: Mental Status: She is alert and oriented to person, place, and time. ASSESSMENT/PLAN: (M25.511, G89.29, M25.512) Chronic pain of both shoulders (primary encounter diagnosis) (M75.81) Rotator cuff tendonitis, right Plan: PHYSICAL THERAPY REFERRAL OP Pt will start PT for both shoulders given ongoing discomfort. Can use tylenol if needed. No NSAIDS. (E11.22, N18.4) Type 2 diabetes mellitus with stage 4 chronic kidney disease, without long-term current use of insulin (HCC) Plan: Reviewed CKD at length. Reviewed why we are using certain medications and what we are hoping to achieve with them. Reviewed side effects she can make us aware of. (I10) HTN, goal below 140/90 Plan: DURABLE MEDICAL EQUIPMENT [facility] BP elevated today. Will need to discuss adjustments with nephro pending her ability to monitor at home. Attempting to get previous EKG and echo from [facility] [place]. Will await results. (Z23) Need for prophylactic vaccination and inoculation against influenza Plan: INFLUENZA VACC, QUAD, HIGH DOSE (FLUZONE HD) Vaccine given. See admin record. (Z13.9) Risk and functional assessment Plan: See nursing note. Follow-up: as scheduled Total time today including reviewing chart before the visit, pertinent labs, imaging reports, face to face time, and documentation time was 38 minutes. Bozena De DO * Autumn Fofana LPN - 07/15/2023 2:09 PM EDT PRE - ADMINISTRATION DOCUMENTATION Are you experiencing any cold symptoms or fever? No Have you had Guillain-Obion Syndrome (an illness that causes paralysis) within the last 6 weeks? No Have you had the flu shot in the past? YES Have you ever had a reaction to the flu shot? No Autumn Fofana LPN, 07/15/2023 2:09 PM Immunization Administration Documentation Time Out Procedure Performed: Yes Patient Identified (Ask Name/Date of ): Yes Does the patient have a fever greater than 101 degrees today? No Patient allergic to latex? No VFC Stock: No Immunization(s) verified: Yes, Immunization Name: Flu , VIS Sheet(s) given: Yes Verified Side and Site: Yes Verified Shot(s) with Parent(s)/Patient: Yes documented in this encounter Nursing Notes * Autumn Fofana LPN - 07/15/2023 2:08 PM EDT Here for follow up, would like to discuss medication. documented in this encounter Plan of Treatment Upcoming Encounters Date Type Specialty Care Team Description 07/29/2023 Office Visit Family Medicine Bozena De, DO [address] [place] [address] 07/29/2023 Imaging Radiology 08/31/2023 Nurse Only [facility] Annual Wellness Visit [address] [facility] [address] [place] [address] 09/28/2023 Office Visit Dermatology Ambrocio Ramos MD [address] [place] [address] 10/26/2023 Office Visit Nephrology Nathaly Bone MD [address], [place] [id number] Scheduled Referrals Name Type Priority Associated Diagnoses Orde r Schedule PHYSICAL THERAPY REFERRAL OP Referral Within 10 days (routine) Chronic pain of both shoulders Rotator cuff tendonitis, right Ordered: 07/15/2023 Health Maintenance Due Date Last Done Comments Cologuard 1994 Colonoscopy 1994 Colorectal Cancer Screening 1994 Fecal Occult Blood Test 1994 Sigmoidoscopy 1994 COVID-19 Vaccine (4 - Pfizer series) 07/15/2022 05/20/2022, 02/05/2021, 01/15/2021 Mammogram 06/05/2023 06/05/2022, 05/19/2022 Zoster Vaccines (2 of 2) 06/17/2023 04/22/2023 Hgb 09/05/2023 09/05/2022, 0803/2020, 02/25/2001 HbA1c 10/22/2023 04/22/2023, 01/0 01/2023, 05/20/2022, [...] Vaccine: 65+ Years Completed 01/07/2017, 09/21/2014, 11/01/2005 *BASELINE EKG FOR HTN Completed 07/15/2023 Influenza Vaccine (FLU shot) Completed , 10/09/2022, [...] as of this encounter Visit Diagnoses Diagnosis Chronic pain of both shoulders- Primary Pain in joint, shoulder region Rotator cuff tendonitis, right Type 2 diabetes mellitus with stage 4 chronic kidney disease, without long-term current use of insulin (HCC) HTN, goal below 140/90 Unspecified essential hypertension Need for prophylactic vaccination and inoculation against influenza Risk and functional assessment Screening for unspecified condition documented in this encounter Care Teams Pension Fund Manager Relationship Specialty Start Date End Date Bozena De, [address] [place] [address] PCP - General Family Medicine 04/22/23 documented as of this encounter
--- OUTSIDE RECORDS SUMMARY | 2023-11-10 12:13 | External Medical Summary | Summary of Care ---
Author Name Unknown Organization [facility] Address [address] [place] [address] Phone [phone] Care Team Providers Care Batting Machine Operator Name Role Phone Bozena De DO Primary Care Provider [phone] Reason for Referral * Evaluate & Treat - Unlimited Visits (Within 10 days (routine)) - Authorized Specialty Diagnoses / Procedures Referred By Steph villatoro Referred To Contact Physical Therapy / Physical Medicine And Rehab Diagnoses Chronic pain of both shoulders Rotator cuff tendonitis, right Bozena De DO [address] [place] [address] Referral ID Status Reason Start Date Expiration Date Visits Requested Visits Authorized [id number] Authorized Specialty Services Required 07/15/2023 999 999 Question Answer Referral Priority Within 10 days (routine) Comments Vital PT Reason for Visit * Reason Onset Date Comments Follow Up Medication Administration 07/15/2023 Flu an d/or Pneumo Inj Encounter Details Date Type Department Care Team Description 07/15/2023 Office Visit Family Practice [address] [place] [address] [place] [phone] Bozena De DO [address] [place] [address] Chronic pain of both shoulders*; [...] Tablet before bedtime. 0 Active Afrin Nasal [place] 0.05 % Nasal Solution (oxymetazoline) Administer 2 [...] documented in this encounter Progress Notes * Bzoena De, DO - 07/15/2023 2:13 PM EDT SUBJECTIVE: Chief [...] less than 8.0% ([facility]) E11.9 HTN, goal below 140/90 I10 Dyslipidemia, goal LDL below 100 E78.5 Hypothyroidism E03.9 Seizure disorder ([facility]) G40.909 Well adult exam Z00.00 Localization-related symptomatic epilepsy and epileptic syndromes with complex partial seizures, not intractable, without status epilepticus ([facility]) G40.209 Kidney disease, chronic, stage IV (GFR 15-29 ml/min) ([facility]) N18.4 Personal history of malignant neoplasm of breast Z85.3 Benign breast cyst in female, left N60.02 Type 2 diabetes mellitus with stage 4 chronic kidney disease, without long-term current use of insulin ([facility]) E11.22, N18.4 Other chronic sinusitis J32.8 Family history of breast cancer in mother Z80.3 Moderate persistent asthma without complication J45.40 Hypertensive kidney disease with chronic kidney disease stage IV ([facility]) I12.9, N18.4 Current Outpatient Medications Medication Sig [...] and 1 Tablet before bedtime. Afrin Nasal [place] 0.05 % Nasal Solution (oxymetazoline) Administer 2 [...] Diagnosis Date Breast cancer ([facility]) 2000 right breast Ductal CA Dyslipidemia, goal LDL below 130 Family history of breast cancer in mother 10/23/2022 HTN, goal below 140/90 Hypothyroidism Kidney disease, chronic, stage IV (GFR 15-29 ml/min) ([facility]) 12/04/2021 Other chronic sinusitis 10/23/2022 Personal history of malignant neoplasm of breast 04/24/20221999 Retinopathy of left eye 05/05/2023 severe Seizure disorder ([facility]) dx 2005, follows w/Dr. Sheldon, stable on topamax Type 2 diabetes mellitus ([facility]) Type 2 diabetes mellitus with hemoglobin A1c goal of less than 8.0% ([facility]) 01/07/2017 Past Surgical History: Procedure Laterality Date CARDIAC CATHETERIZATION REPORT CATARACT SURGERY,COMPLEX Left 01/2017 Dr Turk COLONOSCOPY MASTECTOMY, PARTIAL Right 2000 MISCELLANEOUS ORDER ([facility] ONLY) Right lumpectomy breast REMOVAL OF OVARY(S) 1975 TOTAL ABD HYSTERECTOMY W/WO REMOVAL OF TUBE(S) Review of patient's allergies indicates: Allergen Reactions Midazolam Neuro complications (Please comment) confusion Baclofen Neuro complications (Please comment) confusion Fentanyl Lamictal [Lamotrigine] Dilantin [Phenytoin Sodium Extended] Itching Family History Problem Relation Age of Onset Breast Cancer Mother 66 Other (Other) Father back surgery Heart Disorder Father [place], passed at 63 Addiction problem Sister both sisters in [place]. Other (ckd) Sister Addiction problem Sister Lung cancer Brother 50 Heart Disorder Grandmother (Maternal) [place] Heart Disorder Grandmother (Paternal) "Dropsy" Heart Disorder Grandfather (Paternal) [place] Family Status Relation Status Mo Fa Sis [...] try to get BP cuff approved through [facility]. BP elevated today. Will need to discuss adjustments with nephro pending her ability to monitor at home. Attempting to get previous EKG and echo from [facility]. Will await results. (Z23) Need for prophylactic [...] symptoms or fever? No Have you had Guillain-[place] Syndrome (an illness that causes paralysis) within [...] Visit Family Medicine Bozena De, DO [address] [place] [address] 07/29/2023 Imaging Radiology 08/31/[address] [facility], Nurse Annual Wellness Visit [address] [facility] [address] [place] [address] 09/28/2023 Office Visit Dermatology Ambrocio Ramos MD [address] [place] [address] 10/26/2023 Office Visit Nephrology Nathaly Bone MD [address] [place] [address] Scheduled Referrals Name Type Priority Associated Diagnoses [...] of 2) 06/17/2023 04/22/2023 Hgb 09/05/2023 09/05/2022, 06/01, 02/25/2001 HbA1c 10/22/2023 [...] condition documented in this encounter Care Teams Batting Machine Operator Relationship Specialty Start Date End Date Bozena De, [address] [place] [address] PCP - General Family Medicine 04/22/23 documented as of this encounter
--- OUTSIDE RECORDS SUMMARY | 2023-11-10 12:13 | External Medical Summary | Summary of Care ---
Author Name Unknown Organization [facility] Address [address] [place] [address] Phone [phone] Care Team Providers Care Stage Hand Name Role Phone Bozena De DO Primary Care Provider Reason for Visit * Reason Onset Date Comments case management 07/22/2023 CKD CM services Encounter Details Date Type Department Care Team Description 07/22/2023 Business Machine Operator Telephone Care Coordination [address] [place] [address] Emily Quintanilla, timber management professor (CKD CM services) Allergies Active Allergy Reactions Severity Noted Date Comments Baclofen Neuro complications (Please comment) 08/18/2022 confusion Phenytoin Sodium Extended Itching Low 01/07/2017 Fentanyl 04/24/2022 Lamotrigine 01/07/2017 Midazolam Neuro complications (Please comment) High 08/18/2022 confusion documented as of this encounter (statuses as of 07/22/2023) Medications Medication Sig Dispensed Refills Start Date [...] Tablet before bedtime. 0 Active Afrin Nasal [place] 0.05 % Nasal Solution (oxymetazoline) Administer 2 [...] A1c goal of less than 8.0% ([facility]) Take 1 Tablet by mouth in the morning. 30 Tablet 2 06/04/2023 Active Sodium Bicarbonate 650 MG Oral TabletIndications: Kidney disease, chronic, stage IV (GFR 15-29 ml/min) ([facility]) Take 1 Tablet by mouth in the [...] as of this encounter (statuses as of 07/22/2023) Active Problems Problem Noted Date Hypertensive kidney [...] suboptimal and may underestimate any underlying obstruction [facility] in past . Cards-saw Dr [...] as of this encounter (statuses as of 07/22/2023) Immunizations Name Administration Dates Next Due COVID-19 [...] Telephone Encounter - Bozena De DO - 07/22/2023 1:19 PM EDT Unfortunately, insurance will not cover the CGMs unless the pt is on insulin. * Telephone Encounter - Emily Quintanilla RN - 07/22/2023 1:10 PM EDT Arun brothers, Your patient, Poppy Mars, has been enrolled in case management related to CKD. I spoke with the Poppy Mars today. The following was done for the patient today: Reviewed medications/completed medication reconciliation , Completed telephonic evaluation , Developed/reviewed exacerbation plan , Reviewed top 3 red flags to report to rn case manager or provider , Reviewed/updated advanced care planning, and Other Pt is wondering if she would be a candidate for a Larry BS monitor? For more details on my assessment and actions, please refer to my notes. Thank you, Emily Quintanilla RN Kidney Transitions Specialist CKD Business Machine Operator documented in this encounter Plan of Treatment Upcoming Encounters Date Type Specialty Care Team Description 07/29/2023 Office Visit Family Medicine Bozena De DO [address] [place] [address] 07/29/2023 Imaging Radiology 08/31/2023 Nurse Only [employer], Nurse Annual Wellness Visit [address] [place] [address] 09/28/2023 Office Visit Dermatology Ambrocio Ramos MD [address] [facility], [place] [address] 09/28/2023 Cardiac Studies Cardiac Studies 10/26/2023 Office Visit Nephrology Nathaly Bone MD [address] [place] [address] [place] [id number] Health Maintenance Due Date Last Done Comments Cologuard 1994 Colonoscopy 1994 Colorectal Cancer Screening 1994 Fecal Occult Blood Test 1994 Sigmoidoscopy 1994 COVID-19 Vaccine (4 - Pfizer series) 07/15/2022 05/20/2022, 02/05/2021, 01/15/2021 Mammogram 06/05/2023 06/05/2022, 05/19/2022 Zoster Vaccines (2 of 2) 06/17/2023 04/22/2023 Hgb 09/05/2023 09/05/2022, 06/01, 02/25/2001 HbA1c 10/22/2023 04/22/2023, 0101/2023, 05/20/2022, Additional history exists Albumin/Creatinine Ratio 11/04/2023 11/04/2022, 0212/2021 GFR 12/31/2023 07/02/2023, 090 11/2022, 04/22/2023, Additional [...] filedocumented as of this encounter Care Teams Stage Hand Relationship Specialty Start Date End Date Bozena De, DO [address] [place] [address] PCP - General Family Medicine 04/22/23 documented as of this encounter
--- OUTSIDE RECORDS SUMMARY | 2023-11-10 12:13 | External Medical Summary | Summary of Care ---
Author Name Unknown Organization [facility] Address [address] [place] [address] Phone [phone] Care Team Providers Care Production Intern Name Role Phone Bozena De DO Primary Care Provider [phone] Reason for Visit * Reason Comments case management CKD CM comprehensive assessment Encounter Details Date Type Department Care Team Description 07/22/2023 Master Control Technician Care Coordination [address] [place] [address] Emily Quintanilla RN Kidney disease, chronic, stage IV (GFR 15-29 ml/min) ([facility])* Allergies Active Allergy Reactions Severity Noted Date [...] Tablet before bedtime. 0 Active Afrin Nasal [place] 0.05 % Nasal Solution (oxymetazoline) Administer 2 [...] chronic, stage IV (GFR 15-29 ml/min) ([facility]) Take 1 [...] suboptimal and may underestimate any underlying obstruction [facility] in past . Cards-saw Dr [...] Progress Notes * Emily Quintanilla RN - 07/22/2023 12:58 PM EDT Master Control Technician Progress Note: Date: 07/22/23 Assigned Patient Tier: 2 Connected with patient via phone. Verified patient name/. Advised patient that call is being recorded for quality and training purposes. Assessment: Pt. noted the following: CKD CM comprehensive assessment Spoke with pt, she lives in a multi-level home. Has stairs, she denies having any trouble with stairs. She is independent with care. 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 Pt reports that she checks her BS at least daily. Range from 100-140. Pt reports pain in fingers and bumps on fingers that one doctor told her not to puncture as it may get into my bones. Pt was wondering if she would qualify for a Larry sensor. BP cuff ordered by nephrology, pt has not yet received. Pt reports ongoing cough since about 2013, dry at times, occasionally productive for clear sputum. SOB with activity such as running vacuum mold sheet cleaner. CP (achy and SOB) at times with activity, lasts about 1-2 minutes then resolves. Says she has had it most of her life. Occasional stomach upset/pain, gets dry heaves and occasional spit up that is clear. Lasts 2-3 minutes then resolves. Pt has urinary incontinence. Discussed diet, pt avoids salt, uses pepper, also avoids sugars, eats wheat bread. She reports thatshe reads labels. Will send out additional diet information. Re: phosphorus, low salt, DM. Bottles out med rec done, pt adherent with medications. She does not use pill minder but does have a system to take her medications. Discussed [facility] mail order, she has been considering it but has not made up her mind. Discussed POA/living will, she said her son is her POA at this time but has some issues so she needs to update. She is in agreement to receive ACP papers to complete. Pt drinks Ujogo half caff coffee. Pt goal is to weigh less than 100#, current wt is 111# and she is 4'7. She was upset because shesaid everyone tells me my wt is fine, well I don't think it is. Reviewed red flags. Edema, SOB, CP, N/V. Will send s/s to monitor for and report. Plan; f/u in 10-14 days for progress note. . Did you receive an alert for an annual wellness visit? Yes, [address] will schedule Is this call for a hospital, fdc or rehab facility discharge to home? No Medication Reconciliation: Medication Reconciliation completed: yes Review of Current goals: Discussed the following patient-centered CM goals with the patient during this discussion: -CKD: Patient will maintain kidney function as long as possible -Status: Not Started current GFR 27. -ESRD: Promote minimal renal risk for patient -Status: Not Started per assessment pt avoids NSAIDS and other OTC medications. -*Personal Patient Goal: Pt wants to lose wt. 11# (90-100#) -Status: Not Started encouraged pt to weigh self daily in morning after first void with nightclothes. COPD Patient: No CHF Patient: NO CM Plan: Reviewed 3 Red Flags with patient. Advised to call CM with any of the following: Red Flag 1: SOB, Red Flag 2: Edema, or Red Flag 3: CP Remote Patient Monitoring: At this time, RPM not offered/considered for patient due to pt getting BP monitor through nephrology. Plan for Future Contacts: Plan to follow up within 2 weeks to check progress on the following goals/needs educational materials. Planned contacts from the following parties will [...] call office if symptoms occur. Follow up: 1-2 weeks, patient verbalizes understanding to call office if questions or concerns arise. Emily Quintanilla RN Kidney Transitions Specialist Nephrology Case Management documented in this encounter Plan of Treatment Upcoming Encounters Date Type Specialty Care Team Description 07/29/2023 Office Visit Family Medicine Bozena De, DO [address] [place] [address] 07/29/2023 Imaging Radiology 08/31/2023 Nurse Only [facility], Nurse Annual Wellness Visit [address] [facility] [address] [place] [address] 09/28/2023 Office Visit Dermatology Ambrocio Ramos MD [address] [place] [address] 09/28/2023 Cardiac Studies Cardiac Studies 10/26/2023 Office Visit Nephrology Nathaly Bone MD [address] [place] [phone] Health Maintenance Due Date Last Done Comments [...] Ratio 11/04/2023 11/04/2022, 12/2021 GFR 12/31/2023 07/02/2023, 11/2022, 04/22/2023, Additional history exists Diabetic Foot [...] (severe) documented in this encounter Care Teams Production Intern Relationship Specialty Start Date End Date Bozena De DO [address] [place] [address] PCP - General Family Medicine 04/22/23 documented as of this encounter
--- OUTSIDE RECORDS SUMMARY | 2023-11-10 12:13 | External Medical Summary | Summary of Care ---
Author Name Unknown Organization [facility] Address [address] [place] [address] Phone [phone] Care Team Providers Care Field Education Director Name Role Phone Bozena De DO Primary Care Provider [phone] Reason for Visit * Reason Onset Date Comments Advice 07/16/2023 FYI Encounter Details Date Type Department Care Team Description 07/16/2023 Telephone Family Practice [address] [facility] [place] [address] [place] [phone] Bozena De DO [address] [place], [place] [phone] Advice (FYI) Allergies Active Allergy Reactions Severity Noted Date Comments Baclofen Neuro complications (Please comment) 08/18/2022 confusion Phenytoin Sodium Extended Itching Low 01/07/2017 Fentanyl 04/24/2022 Lamotrigine 01/07/2017 Midazolam Neuro complications (Please comment) High 08/18/2022 confusion documented as of this encounter (statuses as of 07/21/2023) Medications Medication Sig Dispensed Refills Start Date End Date Status Aspirin 81 MG Tablet Take 1 Tablet by mouth in the morning. 0 Active topiramate (TOPAMAX) 200 MG Tablet Take 1 Tab by mouth 2 times a day. 60 Tab 5 01/09/2017 Active Zinc 50 MG Oral Tablet Take 1 Tablet by mouth in the morning. 0 Active Vitamin D3 50 MCG (1999) Oral Capsule Take 1 Capsule by mouth in the morning. 0 Active Acetaminophen 500 MG Oral Tablet Take 2 Tablets by mouth at bedtime. 0 Active Claritin-D 12 Hour 5-120 MG Tablet Extended Release 12 Hour (loratadine-pseudo ephedrine ER 5-120 mg per tab) Take 1 Tablet by mouth in the morning and 1 Tablet before bedtime. 0 Active Afrin Nasal [place] 0.05 % Nasal Solution (oxymetazoline) Administer 2 [...] hemoglobin A1c goal of less than 8.0% ([facility]) Take 1 Tablet by mouth in the morning. 30 Tablet 2 06/04/2023 Active Sodium Bicarbonate 650 MG Oral TabletIndications: Kidney disease, chronic, stage IV (GFR 15-29 ml/min) ([facility]) Take 1 Tablet by mouth in the morning and 1 Tablet before bedtime. 180 Tablet 3 07/13/2023 Active Additional Information Patient not taking.Reported on 07/15/2023 Hospital, Clinic, or Other Facility Administered Medication [...] as of this encounter (statuses as of 07/21/2023) Active Problems Problem Noted Date Hypertensive kidney [...] disorder 12/03/2021 Overview: dx 2006, follows w/Dr. Shledon, stable on topamax Well adult exam 12/03/2021 [...] as of this encounter (statuses as of 07/21/2023) Immunizations Name Administration Dates Next Due COVID-19 mRNA, LNP-s, No Pre serve, 2-Dose Series (Mimeo) 02/05/2021,01/15/2021 COVID-19, LNP-s, No Preserve , Torito-sucrose, [...] Telephone Encounter - Bozena De DO - 07/21/2023 2:[address] Novak ordered echo. EKG to scanning. * Telephone Encounter - Autumn Fofana LPN - 07/16/2023 3:26 PM EDT No echo was found but EKG was faxed. * Telephone Encounter - Autumn Precidao RN - 07/16/2023 3:09 PM EDT Call to [facility] and requested echo report and EKG-said would fax. * Telephone Encounter - Bozena De DO - 07/16/2023 10:55 AM EDT Please call [facility] to track down echo and EKG. Echo may have been done around [phone]. Would also like actual print out of most recent EKG. documented in this encounter Plan of Treatment Upcoming Encounters Date Type Specialty Care Team Description 07/29/2023 Office Visit Family Medicine Bozena De DO [address] [place] [address] 07/29/2023 Imaging Radiology 08/31/2023 Nurse Only [facility], Nurse Annual Wellness Visit [address] [facility] [address] [facility] [place] [address] 09/28/2023 Office Visit Dermatology Ambrocio Ramos MD [address] [place] [address] 09/28/2023 Cardiac Studies Cardiac Studies 10/26/2023 Office Visit Nephrology Nathaly Bone MD [address] [facility] [place] [phone] Health Maintenance Due Date Last Done Comments [...] filedocumented as of this encounter Care Teams Field Education Director Relationship Specialty Start Date End Date Bozena De, [address] [place] [address] PCP - General Family Medicine 04/22/23 documented as of this encounter
--- OUTSIDE RECORDS SUMMARY | 2023-11-10 12:13 | External Medical Summary | Summary of Care ---
Author Name Unknown Organization [facility] Address [address] [place] [address] Phone [phone] Care Team Providers Care Sampler Tester Name Role Phone Bozena De DO Primary Care Provider [phone] Reason for Referral * Evaluate & Treat - Unlimited Visits (Within 10 days (routine)) - Authorized Specialty Diagnoses / Procedures Referred By Steph villatoro Referred To Contact Physical Therapy / Physical Medicine And Rehab Diagnoses Chronic pain of both shoulders Rotator cuff tendonitis, right Bozena De DO [address] [place] [address] Referral ID Status Reason Start Date Expiration Date Visits Requested Visits Authorized [id number] Authorized Specialty Services Required 07/15/[phone] Question Answer Referral Priority Within 10 days (routine) Comments Vital PT Reason for Visit * Reason Onset Date Comments Follow Up Medication Administration 07/15/2023 Flu an d/or Pneumo Inj Encounter Details Date Type Department Care Team Description 07/15/2023 Office Visit Family Practice [address] [place] [address] [place] [phone] Bozena De DO [address] [place] [address] Chronic pain of both shoulders*; [...] Tablet before bedtime. 0 Active Afrin Nasal [place] 0.05 % Nasal Solution (oxymetazoline) Administer 2 [...] in this encounter Progress Notes * Bozena De, DO - 07/15/2023 2:13 PM EDT [...] less than 8.0% ([facility]) E11.9 HTN, goal below 140/90 I10 Dyslipidemia, goal LDL below 100 E78.5 Hypothyroidism E03.9 Seizure disorder ([facility]) G40.909 Well adult exam Z00.00 Localization-related symptomatic epilepsy and epileptic syndromes with complex partial seizures, not intractable, without status epilepticus ([facility]) G40.209 Kidney disease, chronic, stage IV (GFR 15-29 ml/min) ([facility]) N18.4 Personal history of malignant neoplasm of breast Z85.3 Benign breast cyst in female, left N60.02 Type 2 diabetes mellitus with stage 4 chronic kidney disease, without long-term current use of insulin ([facility]) E11.22, N18.4 Other chronic sinusitis J32.8 Family history of breast cancer in mother Z80.3 Moderate persistent asthma without complication J45.40 Hypertensive kidney disease with chronic kidney disease stage IV ([facility]) I12.9, N18.4 Current Outpatient Medications Medication Sig [...] and 1 Tablet before bedtime. Afrin Nasal [place] 0.05 % Nasal Solution (oxymetazoline) Administer 2 [...] Medical History: Diagnosis Date Breast cancer ([facility]) 2000 right breast Ductal CA Dyslipidemia, goal LDL below 130 Family history of breast cancer in mother 10/23/2022 HTN, goal below 140/90 Hypothyroidism Kidney disease, chronic, stage IV (GFR 15-29 ml/min) ([facility]) 12/04/2021 Other chronic sinusitis 10/23/2022 Personal history of malignant neoplasm of breast 04/24/20221999 Retinopathy of left eye 05/05/2023 severe Seizure disorder ([facility]) dx 2005, follows w/Dr. Sheldon, stable on topamax Type 2 diabetes mellitus ([facility]) Type 2 diabetes mellitus with hemoglobin A1c goal of less than 8.0% ([facility]) 01/07/2017 Past Surgical History: Procedure Laterality Date CARDIAC CATHETERIZATION REPORT CATARACT SURGERY,COMPLEX Left 01/2017 Dr Turk COLONOSCOPY MASTECTOMY, PARTIAL Right 2000 MISCELLANEOUS ORDER ([facility] ONLY) Right lumpectomy breast REMOVAL OF OVARY(S) 1975 TOTAL ABD HYSTERECTOMY W/WO REMOVAL OF TUBE(S) Review of patient's allergies indicates: Allergen Reactions Midazolam Neuro complications (Please comment) confusion Baclofen Neuro complications (Please comment) confusion Fentanyl Lamictal [Lamotrigine] Dilantin [Phenytoin Sodium Extended] Itching Family History Problem Relation Age of Onset Breast Cancer Mother 66 Other (Other) Father back surgery Heart Disorder Father [place], passed at 63 Addiction problem Sister both sisters in [place]. Other (ckd) Sister Addiction problem Sister Lung cancer Brother 50 Heart Disorder Grandmother (Maternal) [place] Heart Disorder Grandmother (Paternal) "Dropsy" Heart Disorder Grandfather (Paternal) [place] Family Status Relation Status Mo Fa Sis [...] [facility] BP elevated today. Will need to discuss adjustments with nephro pending her ability to monitor at home. Attempting to get previous EKG and echo from [facility]. Will await results. (Z23) Need for [...] symptoms or fever? No Have you had Guillain-[place] Syndrome (an illness that causes paralysis) within [...] Visit Family Medicine Bozena De, DO [address] [place] [address] 07/29/2023 Imaging Radiology 08/31/2023 Nurse Only [facility], Nurse Annual Wellness Visit [address] [facility] [address] [facility] [place] [address] 09/28/2023 Office Visit Dermatology Ambrocio Ramos MD [address] [place] [address] 10/26/2023 Office Visit Nephrology Nathaly Bone MD [address] [place] [address] Scheduled Referrals Name Type Priority [...] condition documented in this encounter Care Teams Sampler Tester Relationship Specialty Start Date End Date Bozena De, [address] [place] [address] PCP - General Family Medicine 04/22/23 documented as of this encounter
--- OUTSIDE RECORDS SUMMARY | 2023-11-10 12:13 | External Medical Summary | Summary of Care ---
Author Name Unknown Organization [facility] Address [address] [place] [address] Phone [phone] Care Team Providers Care Pulling Machine Operator Name Role Phone Bozena De DO Primary Care Provider Reason for Visit * Reason Onset Date Comments Test Results 07/12/2023 Encounter Details Date Type Department Care Team Description 07/12/2023 Telephone NephrologyAlison [address] [facility] [place] [address] Mandy Rao MD [address] [facility] [place] [address] Test Results Allergies Active Allergy Reactions Severity Noted Date Comments Baclofen Neuro complications (Please comment) 08/18/2022 confusion Phenytoin Sodium Extended Itching Low 01/07/2017 Fentanyl 04/24/2022 Lamotrigine 01/07/2017 Midazolam Neuro complications (Please comment) High 08/18/2022 confusion documented as of this encounter (statuses as of 07/19/2023) Medications Medication Sig Dispensed Refills Start Date [...] Tablet before bedtime. 0 Active Afrin Nasal [place] 0.05 % Nasal Solution (oxymetazoline) Administer 2 [...] goal of less than 8.0% ([facility]) Take 1 Tablet by mouth in the morning. 30 Tablet 2 3 Active Sodium Bicarbonate 650 MG Oral TabletIndications:Kid tyler disease, chronic, stage IV (GFR 15-29 ml/min) ([facility]) Take 1 Tablet by mouth [...] goal of less than 8.0% ([facility]) take 2 tablets by mouth before meals up to four times a day . HOLD IF FS IS LESS THAN 130 720 Tablet 1 3 07/15/20 23 Discontinu ed(Medicat ion List Clean Up) Zoster [...] as of this encounter (statuses as of 07/19/2023) Active Problems Problem Noted Date Hypertensive kidney [...] suboptimal and may underestimate any underlying obstruction [facility] in past . Cards-saw Dr [...] as of this encounter (statuses as of 07/19/2023) Immunizations Name Administration Dates Next Due COVID-19 [...] Telephone Encounter - Prudence Hudson RN - 07/19/2023 11:55 AM EDT TE with pt regarding discussion about Jardiance. She states she has been taking the medications as ordered and understand its importance. * Telephone Encounter - COLBY Mantilla - 07/16/2023 4:37 PM EDT Patient left a voicemail at [facility] returning your call. Requested a call back at [phone]. * Telephone Encounter - Prudence Hudson RN - 07/16/2023 1:12 PM EDT LMAM to return call to discuss current concerns with her medications. * Telephone Encounter - Mandy Rao MD - 07/13/2023 3:13 PM EDT Started jardiance 06/04/23. Has had kidney problems in current range since June 2020. Doubt it's the jardiance driving STABLE ckd 4. more likely it's years/decades of HTN which has beenlabile/challenging to control and longstanding DM In fact jardiance is gold standard for CKD patients >> the trials evaluating jardiance in kidney patients were stopped early b/c of so much benefit for pt's taking the med. Recommend trying to get her back in sooner than 3 mos if she wishes to discuss further (but still keep 3 month appt as well in case we need it) Recommend she continue jardiance Hope we didn't overwhelm her w/ so many things to do after recent visit for kidney care >> there are a lot of important issues to address. We can slow that down if she likes but hope she will consider continuing jardiance. Pls let me know what she decides CC Dr Kenisha RN [facility] [place] * Telephone Encounter - Prudence Hudson RN - 07/13/2023 2:33 PM EDT TE with pt who voices extreme concern with taking Jardiance. She reports that she did not have all of these "kidney problems" prior to taking Jardiance. She reports that she was on Repaglinide and didn't have these problems. Rx pended for signature. Pt is aware to repeat labs in 2-3 weeks. Please advise. * Telephone Encounter - Prudence Hudson RN - 07/13/2023 2:33 PM EDT ----- Message from Mandy Rao MD sent at 07/12/2023 7:06 AM EDT ----- Repeat labs show ongoing CKD 4 w/ eGFR 27; we used cystatin c assay as well and combine w/ creatinine d/t her body habitus and eGFR cystatin is 19, combined eGFR whic is the one we accept was 23 ml/min. Also w/ ongoing acidosis, ?related to ckd. -ask again if chronic diarrhea (did not report at OV) -start sodium bicarbonate 650 mg bid -continue jardiance -get PTH, phos and repeat bmp after about 2-3 wks on jardiance -was to have NV for bp cuff check; if not done pls facilitate OR offer remote bp monitoring programif she is willing to check bp daily -abnormal heart sounds at OV and w/ hx of pediatric heart issues > ECG ordered and may well alsoneed TTE -recommend ESRD options class as well given CKD 4 or can discuss w/ CKD group fitness department head and at next visit * Telephone Encounter - Prudence Hudson RN - 07/13/2023 2:24 PM EDT ----- Message from Mandy Rao MD sent at 07/12/2023 7:06 AM EDT ----- Repeat labs show ongoing CKD 4 w/ eGFR 27; we used cystatin c assay as well and combine w/ creatinine d/t her body habitus and eGFR cystatin is 19, combined eGFR whic is the one we accept was 23 ml/min. Also w/ ongoing acidosis, ?related to ckd. -ask again if chronic diarrhea (did not report at OV) -start sodium bicarbonate 650 mg bid -continue jardiance -get PTH, phos and repeat bmp after about 2-3 wks on jardiance -was to have NV for bp cuff check; if not done pls facilitate OR offer remote bp monitoring programif she is willing to check bp daily -abnormal heart sounds at OV and w/ hx of pediatric heart issues > ECG ordered and may well alsoneed TTE -recommend ESRD options class as well given CKD 4 or can discuss w/ CKD group fitness department head and at next visit * Telephone Encounter - Prudence Hudson RN - 07/12/2023 10:02 AM EDT LMAM with call back number left regarding lab results. * Telephone Encounter - Prudence Hudson RN - 07/12/2023 9:39 AM EDT ----- Message from Mandy Rao MD sent at 07/12/2023 7:06 AM EDT ----- Repeat labs show ongoing CKD 4 w/ eGFR 27; we used cystatin c assay as well and combine w/ creatinine d/t her body habitus and eGFR cystatin is 19, combined eGFR whic is the one we accept was 23 ml/min. Also w/ ongoing acidosis, ?related to ckd. -ask again if chronic diarrhea (did not report at OV) -start sodium bicarbonate 650 mg bid -continue jardiance -get PTH, phos and repeat bmp after about 2-3 wks on jardiance -was to have NV for bp cuff check; if not done pls facilitate OR offer remote bp monitoring programif she is willing to check bp daily -abnormal heart sounds at OV and w/ hx of pediatric heart issues > ECG ordered and may well alsoneed TTE -recommend ESRD options class as well given CKD 4 or can discuss w/ CKD group fitness department head and at next visit documented in this encounter Plan of Treatment Upcoming Encounters Date Type Specialty Care Team Description 07/29/2023 Office Visit Family Medicine Bozena De, DO [address] [facility] [place] [address] 07/29/2023 Imaging Radiology 08/31/2023 Nurse Only [facility], Nurse Annual Wellness Visit [address] [facility] [address] [place] [address] 09/28/2023 Office Visit Dermatology Ambrocio Ramos MD [address] [place] [address] 10/26/2023 Office Visit Nephrology Nathaly Bone MD [address] [place] [address] Scheduled Orders Name Type Priority Associated Diagnoses Orde r Schedule PTH Lab Routine Kidney disease, chronic, stage IV (GFR 15-29 ml/min) ([facility]) Expected: 07/19/2023 (Approximate), Expires: 07/13/2024 PHOSPHORUS Lab Routine Kidney disease, chronic, stage IV (GFR 15-29 ml/min) ([facility]) Expected: 07/19/2023 (Approximate), Expires: 07/13/2024 BASIC METABOLIC PANEL Lab Routine Kidney disease, chronic, stage IV (GFR 15-29 ml/min) ([facility]) Expected: 07/19/2023 (Approximate), Expires: 07/13/2024 Health Maintenance Due Date Last Done Comments [...] (severe) documented in this encounter Care Teams Pulling Machine Operator Relationship Specialty Start Date End Date Bozena De, [address] [place] [address] PCP - General Family Medicine 04/22/23 documented as of this encounter
--- OUTSIDE RECORDS SUMMARY | 2023-11-10 12:13 | External Medical Summary | Summary of Care ---
Author Name Unknown Organization [facility] Address [address] [place] [address] Phone [phone] Care Team Providers Care Cork Grinder Name Role Phone Bozena De DO Primary Care Provider Reason for Visit * Reason Onset Date Comments Test Results 07/12/2023 Encounter Details Date Type Department Care Team Description 07/12/2023 Telephone NephrologyAlison [address] [facility] [place] [address] Mandy Rao MD [address] [facility] [place] [address] Test Results Allergies Active Allergy Reactions Severity [...] Tablet before bedtime. 0 Active Afrin Nasal [place] 0.05 % Nasal Solution (oxymetazoline) Administer 2 [...] than 8.0% ([facility]) take 2 tablets by mouth [...] Miscellaneous Notes * Telephone Encounter - COLBY Mantilla - 07/16/2023 4:37 PM EDT Patient left a voicemail at [facility] returning your call. Requested a call back at [phone]. * Telephone Encounter - Prudence Hudson RN [...] what she decides CC Dr Kenisha RN [facility] * Telephone Encounter - Prudence Hudson RN [...] CKD 4 or can discuss w/ CKD development mgr and at next visit * Telephone Encounter [...] CKD 4 or can discuss w/ CKD development mgr and at next visit * Telephone Encounter [...] CKD 4 or can discuss w/ CKD development mgr and at next visit documented in this encounter Plan of Treatment Upcoming Encounters Date Type Specialty Care Team Description 07/29/2023 Office Visit [facility] [address] [facility] [address] 07/29/2023 Imaging Radiology 08/31/2023 Nurse Only [employer], Nurse [facility] Wellness [facility] [address] [facility] [address] 09/28/2023 Office Visit Dermatology Ambrocio Ramos MD [address] [place] [address] 10/26/2023 Office Visit Nephrology Nathaly Bone MD [address] [facility] [place] [id number] Scheduled Orders Name Type Priority Associated Diagnoses Orde r Schedule PTH Lab Routine Kidney disease, chronic, stage IV (GFR 15-29 ml/min) ([facility]) Expected: 07/19/2023 (Approximate), Expires: 07/13/2024 PHOSPHORUS Lab Routine Kidney disease, chronic, stage IV (GFR 15-29 ml/min) ([facility]) Expected: 07/19/2023 (Approximate), Expires: 07/13/2024 BASIC METABOLIC PANEL Lab Routine Kidney disease, chronic, stage IV (GFR 15-29 ml/min) ([facility]) Expected: 07/19/2023 (Approximate), Expires: 07/13/2024 [...] (severe) documented in this encounter Care Teams Cork Grinder Relationship Specialty Start Date End Date Bozena De, [address] [facility] [place] [address] PCP - General Family Medicine 04/22/23 documented as of this encounter
--- OUTSIDE RECORDS SUMMARY | 2023-11-10 12:13 | External Medical Summary | Summary of Care ---
Author Name Unknown Organization [facility] Address [address] [place] [address] Phone [phone] Care Team Providers Care Inspector Of Dredging Name Role Phone Bozena De DO Primary Care Provider [phone] Reason for Visit * Reason Onset Date Comments case management 07/14/2023 CKD CM 2nd attem pt to contact Encounter Details Date Type Department Care Team Description 07/14/2023 Investigator Telephone Care Coordination [address] [place] [address] Emily Quintanilla, project management analyst (CKD CM 2nd attempt to con... Allergies Active Allergy Reactions Severity Noted Date Comments Baclofen Neuro complications (Please comment) 08/18/2022 confusion Phenytoin Sodium Extended Itching Low 01/07/2017 Fentanyl 04/24/2022 Lamotrigine 01/07/2017 Midazolam Neuro complications (Please comment) High 08/18/2022 confusion documented as of this encounter (statuses as of 07/14/2023) Medications Medication Sig Dispensed Refills Start Date [...] Tablet before bedtime. 0 Active Afrin Nasal [place] 0.05 % Nasal Solution (oxymetazoline) Administer 2 Sprays into nostril in the morning and 2 Sprays before bedtime. 0 Active Methocarbamol 500 MG Oral Tablet (Robamol) Take 1 Tablet by mouth 2 times a day as needed. 0 Active Omeprazole 20 MG Oral Capsule Delayed Release (PriLOSEC)Indications :Chronic cough Take by mouth 1 Capsule in the morning. 1 hour before the first meal of the day. 90 Capsule 1 07/20/2022 Active Ondansetron HCl 4 MG Oral Tablet [...] the morning. 90 Tablet 3 10/21/2022 Active Repaglinide 2 MG Oral Tablet (Prandin)Indications: Type 2 diabetes mellitus with hemoglobin A1c goal of less than 8.0% (HCC) take 2 tablets by mouth before meals up to four times a day . HOLD IF FS IS LESS THAN 130 720 Tablet 1 01/04/2023 Active Breo Ellipta 200-25 MCG/ACT Inhalation Aerosol [...] as needed for Heartburn. 0 04/22/2023 Active Zoster Vac Recomb Adjuvanted 50 MCG/0.5ML Intramuscular Suspension Reconstituted (Shingrix)Indications :Need for vaccination for zoster Inject 0.5 mL into a large muscle now and repeat dose in 60 to 180 days 1 Each 0 04/22/2023 Active Atenolol 50 MG Oral Tablet (Tenormin) Take 1 Tablet by mouth in the morning. 90 Tablet 3 04/22/2023 Active Albuterol Sulfate HFA 108 (90 Base) MCG/ACT Inhalation Aerosol SolutionIndications:M oderate persistent asthma without complication Inhale 2 Puffs by mouth every 6 hours as needed (cough/wheeze). 18 g 3 04/22/2023 Active LORazepam 1 MG Oral Tablet (Ativan)Indications:I nsomnia, unspecified type Use 1/2 a tablet by mouth as needed for sleep. 15 Tablet 0 05/28/2023 Active Empagliflozin 10 MG Oral Tablet (Jardiance)Indication s:Type 2 diabetes mellitus with hemoglobin A1c goal of less than 8.0% ([facility]) Take 1 Tablet by mouth in the morning. 30 Tablet 2 06/04/2023 Active Cephalexin 500 MG Oral Capsule (Keflex)Indications:S econdary impetiginization 1 capsule twice daily for 1 week 14 Capsule 0 07/04/2023 Active Sodium Bicarbonate 650 MG Oral TabletIndications:Kid tyler disease, chronic, stage IV (GFR 15-29 ml/min) ([facility]) Take 1 Tablet by mouth in [...] as of this encounter (statuses as of 07/14/2023) Active Problems Problem Noted Date Hypertensive kidney [...] Overview: dx 2005, follows w/vamsi Kim on [facility] adult exam 12/03/2021 Overview: 10/22 PFTs [...] as of this encounter (statuses as of 07/14/2023) Immunizations Name Administration Dates Next Due COVID-19 mRNA, LNP-s, No Pre serve, 2-Dose Series ([employer]) 02/05/2021,01/15/2021 COVID-19, LNP-s, No Preserve , [...] got money to buy more. Never true 04/22/2023 Within the past 12 months, t he food you bought just didn't last and you didn't have money to get more. Never true 04/22/2023 Sex Assigned at Date Recorded Female 02/24/2023 3:46 PM E DT Job Start Date Occupation Industry Not on file Not on file Not on file documented as of this encounter Miscellaneous Notes * Telephone Encounter - Emily Quintanilla RN - 07/14/2023 11:11 AM EDT Follow-up Routine Attempted Phone Call Second Attempt Call Outcome Left Voicemail/Message Plan To attempt another outreach Emily Quintanilla RN Kidney Transitions Specialist CKD Investigator documented in this encounter Plan of Treatment Upcoming Encounters Date Type Specialty Care Team Description 07/29/2023 Office Visit Family Medicine Bozena De, DO [address] [place] [address] 07/29/2023 Imaging Radiology 08/31/2023 Nurse Only [employer], Nurse Annual Wellness Visit [address] [place] [address] 09/28/2023 Office Visit Dermatology Ambrocio Ramos MD [address] [facility] [place] [address] 10/26/2023 Office Visit Nephrology Nathaly Bone MD [address] [facility] [place], [place] [phone] Health Maintenance Due Date Last Done Comments Cologuard 1994 Colonoscopy 1994 Colorectal Cancer Screening 1994 Fecal Occult Blood Test 1994 Sigmoidoscopy 1994 *BASELINE EKG FOR HTN 12/06/2021 COVID-19 Vaccine (4 - Pfizer series) 07/15/2022 05/20/2022, 02/05/2021, 01/15/2021 Mammogram 06/05/2023 06/05/2022, 05/19/2022 Zoster Vaccines (2 of 2) 06/17/2023 04/22/2023 Influenza Vaccine (FLU shot) (#1) 2023 10/09/2022, 08/28/2019, 09/09/2016, Additional history exists Hgb 09/05/2023 09/05/2022, 06/01, 02/25/2001 HbA1c 10/22/2023 04/22/2023, 010 01/2023, 05/20/2022, Additional history exists Albumin/Creatinine Ratio 11/04/2023 11/04/2022, 020 12/2021 GFR 12/31/2023 07/02/2023, 0911/2022, 04/22/2023, Additional history exists Depression Screening 04/22/2024 04/22/2023 Diabetic Foot Exam 04/22/2024 04/22/2023 PTH 04/22/2024 04/22/2023 TSH 04/22/2024 04/22/2023, 05/02, 06/15/2020 DIABETES-EYE EXAM 06/08/2024 06/08/2023, , 12/24/2021 Nephrology Referral 07/02/2024 07/02/2023 Phosphate 07/02/2024 07/02/2023, 04/22/2023 Lipid Panel 11/04/2027 11/04/2022, 12/03/2021 DTaP,Tdap,and Td Vaccines (2 - Td or Tdap) 11/04/2032 11/04/2022 Pneumococcal Vaccine: 65+ Years Completed 01/07/2017, 09/21/2014, 11/01/2005 GARDASIL-HPV IMMUNIZATION SERIES Aged Out No longer eligible based on patient's age to complete this topic Hepatitis B Aged Out No longer eligi ble based on patient's age to complete this topic MENINGOCOCCAL (MENACTRA/MENVEO) Aged Out No longer eligible based on patient's age to complete this topic documented as of this encounter Medical Devices Not on filedocumented as of this encounter Care Teams Inspector Of Dredging Relationship Specialty Start Date End Date Bozena De, DO [address] [place] [address] PCP - General Family Medicine 04/22/23 documented as of this encounter
--- OUTSIDE RECORDS SUMMARY | 2023-11-10 12:13 | External Medical Summary | Summary of Care ---
Author Name Unknown Organization [facility] Address [address] [facility] [facility] [address] Phone [phone] Care Team Providers Care Whitewater Rafting Guide Name Role Phone Bozena De Primary Care Provider + [phone] Reason for Referral * Precert (Within 10 days (routine)) - Authorized Specialty Diagnoses / Procedures Referred By Contac t Referred To Contact Cardiac Studies Diagnoses Abnormal heart sounds Procedures ECHO, COMPLETE (2D), TRANS-THORACIC Mandy Rao MD [address] [facility] [address] [place] [address] Referral ID Status Reason Start Date Expiration Date V isits Requested Visits Authorized [id number] Authorized Precert 07/26/[phone] Reason for Visit * Reason Onset Date Comments Outpatient Testing 07/19/2023 Encounter Details Date Type Department Care Team Description 07/19/2023 Telephone Nephrology, Alison [place] [address] [place] [address] Mandy Rao MD 200 [facility] [place], [place] [id number] Outpatient Testing Allergies Active Allergy Reactions Severity Noted Date [...] Tablet before bedtime. 0 Active Afrin Nasal [place] 0.05 % Nasal Solution (oxymetazoline) Administer 2 [...] hemoglobin A1c goal of less than 8.0% ([facility]) Take 1 Tablet by mouth in the morning. 30 Tablet 2 06/04/2023 Active Sodium Bicarbonate 650 MG Oral TabletIndications: Kidney disease, chronic, stage IV (GFR 15-29 ml/min) ([facility]) Take 1 Tablet by mouth [...] 10/23/2022 Family history of breast cancer in [place] 10/23/2022 Benign breast cyst in female, left 08/18 Type 2 diabetes mellitus wit h stage 4 chronic kidney disease, without long-term current use of insulin 08/18/2022 Personal history of malignant neoplasm o f breast 04/24/2022 Overview: 1999 Kidney disease, chronic, stage IV (GFR 1 5-29 ml/min) 12/04/2021 Seizure disorder 12/03/2021 Overview: dx 2005, follows w/vamsi Kim on [employer] Well adult exam 12/03/2021 Overview: 10/22 PFTs -decreasedCONCLUSION: Spirogram is within acceptable limits. There is mild decrease in flow at the level of the small airways. Expiratory time is suboptimal and may underestimate any underlying obstruction [facility] in past . Cards-saw Dr [...] mRNA, LNP-s, No Pre serve, 2-Dose Series ([employer]) 02/05/2021,01/15/2021 COVID-19, LNP-s, No Preserve , Torito-sucrose, [...] Encounter - Prudence Hudson RN - 07/19/2023 12:06 PM EDT TE with pt regarding additional cardiac testing. She verbalized understanding. * Telephone Encounter - Prudence Hudson RN - 07/19/2023 11:56 AM EDT ----- Message from Mandy Rao MD sent at 07/16/2023 2:53 PM EDT ----- Abnormal ECG in pt with hx of pediatric heart issues, abnormal heart exam on PE, uncontrolled HTN >> recommend TTE; may need cardiology eval -pls order TTE Dr Crow NAVA documented in this encounter Plan of Treatment Upcoming Encounters Date Type Specialty Care Team Description 07/29/2023 Office Visit Family Medicine Bozena De, DO [address] [facility] [place] [address] 07/29/2023 Imaging Radiology 08/31/2023 Nurse Only [facility], Nurse Annual Wellness Visit [address] [place] [address] 09/28/2023 Office Visit Dermatology Ambrocio Ramos MD [address] [place], [place] [phone] 10/26/2023 Office Visit Nephrology Nathaly Bone MD [address] [place] [address] Scheduled Orders Name Type Priority Associated Diagnoses Orde r Schedule ECHO, COMPLETE (2D), TRANS-THORACIC Echocardiology Routine Abnormal heart sounds Expected: 07/26/2023, Expires: 08/18/2025 Health Maintenance Due Date Last Done Comments [...] Ratio 11/04/2023 11/04/2022, 12/2021 GFR 12/31/2023 07/02/2023, 09/0 11/2022, 04/22/2023, [...] as of this encounter Visit Diagnoses Diagnosis Abnormal heart sounds- Primary Other abnormal heart sounds documented in this encounter Care Teams Whitewater Rafting Guide Relationship Specialty Start Date End Date Bozena De, DO [address] [facility] [place] [address] PCP - General Family Medicine 04/22/23 documented as of this encounter
--- OUTSIDE RECORDS SUMMARY | 2023-11-10 12:13 | External Medical Summary | Summary of Care ---
Author Name Unknown Organization [facility] Address [address] [place] [address] Phone [phone] Care Team Providers Care Strap Stitcher Name Role Phone Bozena De DO Primary Care Provider Reason for Visit * Reason Onset Date Comments case management 07/16/2023 CKD CM pt contac t Encounter Details Date Type Department Care Team Description 07/16/2023 Validation Scientist Telephone Care Coordination [address] [place] [address] Emily Quintanilla, event management consultant (CKD CM pt contact) Allergies Active Allergy Reactions Severity Noted [...] Tablet before bedtime. 0 Active Afrin Nasal [place] 0.05 % Nasal Solution (oxymetazoline) Administer 2 [...] suboptimal and may underestimate any underlying obstruction [facility] in past . Cards-saw Dr [...] Telephone Encounter - Emily Quintanilla RN - 07/16/2023 4:57 PM EDT CKD CM Pt returned call. Discussed CKD CM services. She is in agreement with service. Agreeable to do comprehensive next week. Plan; will contact pt next week. Emily Quintanilla RN Kidney Transitions Specialist CKD Validation Scientist documented in this encounter Plan of Treatment Upcoming Encounters Date Type Specialty Care Team Description 07/29/2023 Office Visit Family Medicine Bozena De, DO [address] [facility] [place] [address] 07/29/2023 Imaging Radiology 08/31/2023 Nurse Only [facility], Nurse Annual Wellness Visit [address] [place] [address] 09/28/2023 Office Visit Dermatology Ambrocio Ramos MD [address] [place] [address] 10/26/2023 Office Visit Nephrology Nathaly Bone MD [address] [place] [place] [id number] Health Maintenance Due Date Last Done Comments [...] 04/22/2024 04/22/2023 TSH 04/22/2024 04/22/2023, 07, 06/15/2020 DIABETES-EYE EXAM 06/08/2024 06/08/2023, , 12/24/2021 [...] filedocumented as of this encounter Care Teams Strap Stitcher Relationship Specialty Start Date End Date Bozena De, DO [address] [place] [address] PCP - General Family Medicine 04/22/23 documented as of this encounter
--- OUTSIDE RECORDS SUMMARY | 2023-11-10 12:13 | External Medical Summary | Summary of Care ---
Author Name Unknown Organization [facility] Address [address] [place] [address] Phone [phone] Care Team Providers Care Photoengraver Apprentice Name Role Phone Bozena De DO Primary Care Provider [phone] Reason for Visit * Reason Onset Date Comments case management 07/22/2023 CKD CM services Encounter Details Date Type Department Care Team Description 07/22/2023 Director Of Graduate Medical Education Telephone Care Coordination [address] [place] [address] Emily Quintanilla, trial management associate (CKD CM services) Allergies Active Allergy Reactions [...] Tablet before bedtime. 0 Active Afrin Nasal [place] 0.05 % Nasal Solution (oxymetazoline) Administer 2 [...] hemoglobin A1c goal of less than 8.0% ([facility]) Take 1 Tablet by mouth in the morning. 30 Tablet 2 06/04/2023 Active Sodium Bicarbonate 650 MG Oral TabletIndications: Kidney disease, chronic, stage IV (GFR 15-29 ml/min) ([facility]) Take 1 Tablet by mouth [...] suboptimal and may underestimate any underlying obstruction [facility] in past . Cards-saw Dr Live [...] top 3 red flags to report to case assembler or provider , Reviewed/updated advanced care planning, and Other Pt is wondering if she would be a candidate for a Larry BS monitor? For more details on my assessment and actions, please refer to my notes. Thank you, Emily Quintanilla RN Kidney Transitions Specialist CKD Director Of Graduate Medical Education documented in this encounter Plan of Treatment Upcoming Encounters Date Type Specialty Care Team Description 07/29/2023 Office Visit Family Medicine Bozena De DO [address] [place] [address] 07/29/2023 Imaging Radiology 08/31/2023 Nurse Only [employer], Nurse Annual Wellness Visit [address] [place] [address] 09/28/2023 Office Visit Dermatology Ambrocio Ramos MD [address] [facility], [place] [address] 09/28/2023 Cardiac Studies Cardiac Studies 10/26/2023 Office Visit Nephrology Nathaly Bone MD [address] [place] [address] [place] [phone] Health Maintenance Due Date Last Done Comments [...] filedocumented as of this encounter Care Teams Photoengraver Apprentice Relationship Specialty Start Date End Date Bozena De, DO [address] [facility] [address] PCP - General Family Medicine 04/22/23 documented as of this encounter
--- OUTSIDE RECORDS SUMMARY | 2023-11-10 12:14 | External Medical Summary ---
Author Name Unknown Address Unknown Organization K01:LABORATORY [facility] - [address] [place] [address] Laboratory Report Ordering Provider Test Date Status PRAVIN ACOSTA 07/02/2023 16:02:03 Final Observation Date Value Abnormality Reference (Units ) Status Uric Acid 07/02/2023 16:02:03 5.3 2.4-5.7 (m g/dL) Final Performing Location LABORATORY C - [address] [place] [address]
--- OUTSIDE RECORDS SUMMARY | 2023-11-10 12:14 | External Medical Summary | Summary of Care ---
Author Name Unknown Organization [facility] Address [address] [place] [address] Phone [phone] Care Team Providers Care Prosthetist Name Role Phone Bozena De DO Primary Care Provider [phone] Reason for Visit * Reason Onset Date Comments Lesion Patient has a le santiago on top of left wrist and it gets scaly at times. She also has a lesion on her chest and a mole on her side that she would like checked. Patient stated the mole gets itchy and hurts at times and that is concerning to her because this started 6 months ago. Encounter Created in Error 07/02/2023 * Evaluate & Treat - Unlimited Visits (Within 3 days (urgent)) - Authorized Specialty Diagnoses / Procedures Referred By Steph villatoro Referred To Contact Dermatology Diagnoses Changing skin lesion Bozena De DO [address] [place] [address] Referral ID Status Reason Start Date Expiration Date Visits Requested Visits Authorized [id number] Authorized Specialty Services Required 04/22/2023 999 999 Encounter Details Date Type Department Care Team Description 06/25/2023 Office Visit Dermatology Alison Sena [place] [address] [place] [address] Tania Castro MD 200 [facility] [place] [address] Encounter created in error Allergies Active Allergy Reactions Severity Noted Date Comments Baclofen Neuro complications (Please comment) 08/18/2022 confusion Phenytoin Sodium Extended Itching Low 01/07/2017 Fentanyl 04/24/2022 Lamotrigine 01/07/2017 Midazolam Neuro complications (Please comment) High 08/18/2022 confusion documented as of this encounter (statuses as of 07/02/2023) Medications Medication Sig Dispensed Refills Start Date [...] 5-120 MG Tablet Extended Release 12 Hour (loratadine-pseudoe phedrine ER 5-120 mg per tab) Take 1 Tablet by mouth in the morning and 1 Tablet before bedtime. 0 Active Afrin Nasal [place] 0.05 % Nasal Solution (oxymetazoline) Administer 2 Sprays into nostril in the morning and 2 Sprays before bedtime. 0 Active Methocarbamol 500 MG Oral Tablet (Robamol) Take 1 Tablet by mouth 2 times a day as needed. 0 Active Omeprazole 20 MG Oral Capsule Delayed Release (PriLOSEC)Indicatio ns:Chronic cough Take by mouth 1 Capsule in [...] Active Levothyroxine Sodium 75 MCG Oral Tablet (Levoxyl)Indication s:Hypothyroidism Take 1 Tablet (75 mcg) by mouth in the morning. As directed.. 90 Tablet 3 10/13/2022 Active Atorvastatin Calcium 40 MG Oral Tablet (Lipitor)Indication s:Dyslipidemia, goal LDL below 100 Take 1 Tablet (40 mg) by mouth in the morning. 90 Tablet 3 10/13/2022 Active amLODIPine Besylate 10 MG Oral Tablet (Norvasc) Take 1 Tablet by mouth in the morning. 90 Tablet 3 10/21/2022 Active Repaglinide 2 MG Oral Tablet (Prandin)Indication s:Type 2 diabetes mellitus with hemoglobin A1c goal of less than 8.0% (HCC) take 2 tablets by mouth before meals up to four times a day . HOLD IF FS IS LESS THAN 130 720 Tablet 1 01/04/2023 Active Breo Ellipta 200-25 MCG/ACT Inhalation Aerosol Powder Breath ActivatedIndication s:Moderate persistent asthma without complication inhale 1 puff by mouth and INTO THE LUNGS every morning 60 Blister Dosing Unit 2 02/08/2023 Active Additional Information Patient taking differently: 1 Puff Inhalation HS, Reported on 04/22/2023 Calcium Carbonate Antacid 500 MG Oral Tablet Chewable Take 1 Tablet by mouth as needed for Heartburn. 0 04/22/2023 Active Zoster Vac Recomb Adjuvanted 50 MCG/0.5ML Intramuscular Suspension Reconstituted (Shingrix)Indicatio ns:Need for vaccination for zoster Inject 0.5 mL into a large muscle now and repeat dose in 60 to 180 days 1 Each 0 04/22/2023 Active Atenolol 50 MG Oral Tablet (Tenormin) Take 1 Tablet by mouth in the morning. 90 Tablet 3 04/22/2023 Active Albuterol Sulfate HFA 108 (90 Base) MCG/ACT Inhalation Aerosol SolutionIndications :Moderate persistent asthma without complication Inhale 2 Puffs by mouth every 6 hours as needed (cough/wheeze). 18 g 3 04/22/2023 Active LORazepam 1 MG Oral Tablet (Ativan)Indications :Insomnia, unspecified type Use 1/2 a tablet by mouth as needed for sleep. 15 Tablet 0 05/28/2023 Active Empagliflozin 10 MG Oral Tablet (Jardiance)Indicati ons:Type 2 diabetes mellitus with hemoglobin A1c goal of less than 8.0% (HCC) Take 1 Tablet by mouth in the morning. 30 Tablet 2 06/04/2023 Active Hospital, Clinic, or Other Facility Administered [...] as of this encounter (statuses as of 07/02/2023) Active Problems Problem Noted Date Hypertensive kidney [...] any underlying obstruction [facility] in past . Cards-saw Dr Live in [...] as of this encounter (statuses as of 07/02/2023) Immunizations Name Administration Dates Next Due COVID-19 [...] as of this encounter Progress Notes * Tania Castro MD - 06/25/2023 1:59 PM EDT SUBJECTIVE: new spots x months Date Last Appointment: Visit date not found (in office), Visit date not found (telemedicine) OBJECTIVE: L dorsal wrist - scaly pink thin 4 mm papule L lower back - waxy ayon plaque ASSESSMENT/PLAN: AK vs. LK vs. NMSC - Biopsy (tangential) of the lesion noted above to establish and confirm diagnosis. The procedure, risks, benefits, alternatives and expected outcomes were discussed with the patient and consent was obtained for the procedure and relevant photos. Time out called. Patient identified, procedure verified, site identified and verified. Patient and staff present in agreement. Area prepped with alcohol and anesthetized with 0.2% ropivicaine. Biopsy of lesion performed. 20% AlCl andbandaging applied. Specimen sent to pathology. Patient instructed in routine post-op care. Seborrheic/Benign Keratosis(-es) - Benign nature was discussed and no further intervention needed. Advised to call with any changes. Discussed sun protection with patient including proper use of sunscreens and protective clothing. ABCDEs explained. Follow-up: per path 06/25/2023 1:59 PM Tania Castro MD This encounter was created in error. 07/02/2023, 1:51 PM, Tania Castro MD documented in this encounter Nursing Notes * Mabel Rg LPN - 06/25/2023 1:31 PM EDT Patient identified by name and date of . Do you have any concerns about pain management for today's visit? No Living Will or Advance Directive for Health Care as noted on problem list. [employer] is a way you can talk to your provider online through e-mail. Would you like to sign up? I can activate it for you? ALREADY ACTIVE Chief Complaint Patient presents with Lesion Patient has a lesion on top of left wrist and it gets scaly at times. She also has a lesion on her chest and a mole on her side that she would like checked. Patient stated the mole gets itchy and hurts at times and that is concerning to her because this started 6 months ago. documented in this encounter Plan of Treatment Upcoming Encounters Date Type Specialty Care Team Description 07/02/2023 Office Visit Nephrology Mandy Rao MD [address] [place] [address] Arrived 07/29/2023 Office Visit Family Medicine Bozena De, DO [address] [place] [address] 07/29/2023 Imaging Radiology 08/31/2023 Nurse Only [facility], Nurse Annual Wellness Visit [address] [facility] [address] [place] [address] 09/28/2023 Office Visit Dermatology Ambrocio Ramos MD [address] [place] [address] Health Maintenance Due Date Last Done Comments Nephrology Referral 1967 Cologuard 1994 Colonoscopy 1994 Colorectal Cancer Screening 1994 Fecal Occult Blood Test 1994 Sigmoidoscopy 1994 *BASELINE EKG FOR HTN 12/06/2021 COVID-19 Vaccine (4 - Pfizer series) 07/15/2022 05/20/2022, 02/05/2021, 01/15/2021 Mammogram 06/05/2023 06/05/2022, 05/19/2022 Zoster Vaccines (2 of 2) 06/17/2023 04/22/2023 Influenza Vaccine (FLU shot) (#1) 2023 10/09/2022, 08/28/2019, 09/09/2016, Additional history exists Hgb 09/05/2023 09/05/2022, 06/01, 02/25/2001 GFR 10/22/2023 04/22/2023, 0 01/2023, 09/05/2022, Additional history exists HbA1c 10/22/2023 04/22/2023, 010 01/2023, 05/20/2022, Additional history exists Albumin/Creatinine Ratio 11/04/2023 11/04/2022, 0212/2021 DIABETES-FOOT EXAM 04/22/2024 04/22/2023 Depression Screening, Annual for Pts 12 and Over 04/22/2024 04/22/2023 PTH 04/22/2024 04/22/2023 Phosphate 04/22/2024 04/22/2023 TSH 04/22/2024 04/22/2023, 07/2 , 06/15/2020 DIABETES-EYE EXAM 06/08/2024 06/08/2023, , 12/24/2021 Lipid Panel 11/04/2027 11/04/2022, 12/03/2021 DTaP,Tdap,and Td [...] Not on filedocumented as of this encounter Procedures Procedure Name Priority Date/Time Associated Diagnosis Comments SURGICAL PATHOLOGY Routine 06/25/2023 2: 00 PM EDT Skin tumor documented in this encounter Results * SURGICAL PATHOLOGY (06/25/2023 2:00 PM EDT) Final Diagnosis A. Skin, L dorsal wrist, shave: Actinic keratosis, inflamed 06/28/2023 9:35 AM EDT [facility] Clinical History See Order Comments 06/28/2023 9:35 AM EDT [facility] Order Comments 1.L dorsal wrist - scaly pink thin 4 mm papule - AK vs. LK vs. ISK vs. NMSC 06/28/2023 9:35 AM EDT [facility] Gross Description A. Skin. shave Received in formalin with a container labeled with "oPppy Mars", "[id number]", "[id number]" and " left dorsal wrist". Received is a 1.1 x 0.7 cm skin shave. The skin surface rough a white to yellow slightly raised, slightly rough, scaly papule measuring 0.9 x 0.5 cm which extends to the closest margin. The underlying tissue is inked. The specimen is trisected and submitted in cassette A1. Gross By: 06/28/2023 9:35 AM EDT LABORATORY [facility] Sign Out Location Pathologist sign out performed at [facility] ([facility] Formerly named [facility] [place] [address]. 06/28/2023 9:35 AM EDT LABORATORY [facility] Photographic images and diagrams represent richter findings in this case; they are not intended to replace a complete review of the final diagnostic report. The following statement applies to Flow Cytometry, Histology, In situ Hybridization Assays and Molecular Genetics. This test was developed and performed at [facility] and its performance characteristics determined by [facility]. It has not been cleared or approved by the U.S. Food and Drug Administration. The FDA has determined that such clearance or approval is not necessary. This test is used for clinical purposes. It should not be regarded as investigational or for research. Special stains, including histochemical stains, and studies using immunologic and MARCELLA methodology (where applicable) are performed with appropriate positive and negative control reactions. 06/28/2023 9:35 AM EDT LABORATORY [facility] Tissue Skin structure / Unknown 06/25/2023 2:00 PM EDT 06/25/2023 2:00 PM EDT Comment:1.L dorsal wrist - s altaf pink thin 4 mm papule - AK vs. LK vs. ISK vs. NMSC Tania Castro MD LAB PATHOLOGY [facility] [address] [address] documented in this encounter Visit Diagnoses Diagnosis Skin tumor- Primary Neoplasm of uncertain behavior of skin Seborrheic keratosis Other seborrheic keratosis Encounter Created In Error documented in this encounter Care Teams Prosthetist Relationship Specialty Start Date End Date Bozena De, [address] [place] [address] PCP - General Family Medicine 04/22/23 documented as of this encounter
--- OUTSIDE RECORDS SUMMARY | 2023-11-10 12:14 | External Medical Summary | Summary of Care ---
Author Name Unknown Organization [facility] Address [address] [place] [address] Phone [phone] Care Team Providers Care Sports Book Server Name Role Phone Bozena De Primary Care Provider + [phone] Reason for Visit * Reason Comments Wound Recheck Pt here for recheck of wound on right forearm. Encounter Details Date Type Department Care Team Description 07/02/2023 Nurse Only Dermatology [facility] [place] [address] [place] [address] Sp, Nurse Dermatology [address] [facility] [place] [address] Wound Recheck (Pt here for recheck of woun... Allergies Active Allergy Reactions Severity Noted Date [...] Tablet before bedtime. 0 Active Afrin Nasal [place] 0.05 % Nasal Solution (oxymetazoline) Administer 2 [...] mRNA, LNP-s, No Pre serve, 2-Dose Series ([employer]) 02/05/2021,01/15/2021 COVID-19, LNP-s, No Preserve , Torito-sucrose, [...] on file documented as of this encounter Nursing Notes * Kasey Ochoa LPN - 07/02/2023 1:54 PM EDT Pt's wound assessed, healing well. Slightly red, advised patient to stop using bandage because redness and itching could be from particular type of dsg. Instructed patient on further care of wound using vaseline, telfa and paper tape until healed. Culture done to rule out infection. documented in this encounter Plan of Treatment Upcoming Encounters Date Type Specialty Care Team Description 07/02/2023 Office Visit Nephrology Mandy Rao MD [address] [place] [address] Arrived 07/29/2023 Office Visit Family Medicine Bozena De, DO [address] [facility] [place] [address] 07/29/2023 Imaging Radiology 08/31/2023 Nurse Only [employer], Nurse Annual Wellness Visit [address] [facility] [address] [place] [address] 09/28/2023 Office Visit Dermatology Ambrocio Ramos MD [address] [place] [facility] [place] [address] Scheduled Orders Name Type Priority Associated Diagnoses Orde r Schedule CULTURE, WOUND, SUPERFICIAL, AEROBIC Lab Routine Secondary impetiginization Ordered: 07/02/2023 Health Maintenance Due Date Last Done Comments [...] 09/09/2016, Additional history exists Hgb 09/05/2023 09/05/2022, 0803/2020, 02/25/2001 GFR 10/22/2023 04/22/2023, 010 01/2023, 09/05/2022, Additional history exists HbA1c 10/22/2023 04/22/2023, 010 01/2023, 05/20/2022, Additional history exists Albumin/Creatinine Ratio 11/04/2023 11/04/2022, 0212/2021 DIABETES-FOOT EXAM 04/22/2024 04/22/2023 Depression Screening, Annual for Pts 12 and Over 04/22/2024 04/22/2023 PTH 04/22/2024 04/22/2023 Phosphate 04/22/2024 04/22/2023 TSH 04/22/2024 04/22/2023, 07/, 06/15/2020 [...] as of this encounter Visit Diagnoses Diagnosis Secondary impetiginization- Primary Impetigo documented in this encounter Care Teams Sports Book Server Relationship Specialty Start Date End Date Bozena De, DO [address] [facility] [place] [address] PCP - General Family Medicine 04/22/23 documented as of this encounter
--- OUTSIDE RECORDS SUMMARY | 2023-11-10 12:14 | External Medical Summary ---
Author Name Unknown Address Unknown Organization : Laboratory Report Ordering Provider Test Date Status PRAVIN ACOSTA 07/02/2023 16:02:03 Final Observation Date Value Abnormality Reference (Units ) Status Cystatin C [Mass/volume] in Serum or Plasma 07/02/2023 16:02:03 2.60 Above high normal 0.52-1.10 (mg/L) Final Glomerular filtration rate/1.73 sq M.predicted [Volume Rate/Area] in Serum, Plasma or Blood by Cystatin-based formula 07/02/2023 16:02:03 19 Below low normal >=60 Final REFERENCE RANGE:>=60 mL/min/ 1.73mE2

Test Performed at:
[facility]
[address] [facility]
[place] [address]
Bertin Haskins M.D., Ph.D.,Director of Laboratories Performing Location
--- OUTSIDE RECORDS SUMMARY | 2023-11-10 12:14 | External Medical Summary | Summary of Care ---
Author Name Unknown Organization [facility] Address [address] [address] Phone [phone] Care Team Providers Care Bias Binding Folder Name Role Phone Bozena De DO Primary Care Provider Reason for Visit * Reason Onset Date Comments Test Results 07/06/2023 Encounter Details Date Type Department Care Team Description 07/06/2023 [facility] [address] [place] [address] Tania Castro MD [address] [facility] [address] Test Results Allergies Active Allergy Reactions Severity Noted Date Comments Baclofen Neuro complications (Please comment) 08/18/2022 confusion Phenytoin Sodium Extended Itching Low 01/07/2017 Fentanyl 04/24/2022 Lamotrigine 01/07/2017 Midazolam Neuro complications (Please comment) High 08/18/2022 confusion documented as of this encounter (statuses as of 07/06/2023) Medications Medication Sig Dispensed Refills Start Date [...] Tablet before bedtime. 0 Active Afrin Nasal [place] 0.05 % Nasal Solution (oxymetazoline) Administer [...] 1 week 14 Capsule 0 07/04/2023 Active Hospital, Clinic, or Other Facility Administered [...] as of this encounter (statuses as of 07/06/2023) Active Problems Problem Noted Date Hypertensive kidney [...] suboptimal and may underestimate any underlying obstruction [facility] in past . Cards-saw Dr [...] as of this encounter (statuses as of 07/06/2023) Immunizations Name Administration Dates Next Due COVID-19 mRNA, LNP-s, No Pre serve, 2-Dose Series (eziCONEX) 02/05/2021,01/15/2021 COVID-19, LNP-s, No Preserve , Torito-sucrose, [...] encounter Miscellaneous Notes * Telephone Encounter - Mabel Rg LPN - 07/06/2023 12:52 PM EDT Called and gave Poppy results and made her aware of the antibiotic she needs to pickle processor Mabel Rg LPN 07/06/2023 12:52 PM * Telephone Encounter - Mabel Rg LPN - 07/06/2023 12:52 PM EDT ----- Message from Tania Castro MD sent at 07/05/2023 6:41 AM EDT ----- Results of culture as below - when you call pt also relay that the biopsy showed an inflamed sun damage spot, and con't vaseline and the antibiotic we're calling in. Patient Phone Numbers documented in this encounter Plan of Treatment Upcoming Encounters Date Type Specialty Care Team Description 07/07/2023 Nurse Only Nephrology Sp, Nurse Nephrology [address] [place] [address] 07/29/2023 Office Visit Family Medicine Bozena De, [address] [place] [address] 07/29/2023 Imaging Radiology 08/31/2023 Nurse Only [facility], Nurse Annual Wellness Visit [address] [facility] [address] [place] [address] 09/28/2023 Office Visit Dermatology Ambrocio Ramos MD [address] [place] [address] 10/26/2023 Office Visit Nephrology Nathaly Bone MD [address] [place] [address] Health Maintenance Due Date Last Done Comments [...] Ratio 11/04/2023 11/04/2022, 12/2021 GFR 12/31/2023 07/02/2023, 04/02, 11/04/2022, Additional history exists DIABETES-FOOT EXAM 04/22/2024 04/22/2023 Depression Screening, Annual for Pts 12 and Over 04/22/2024 04/22/2023 PTH 04/22/2024 04/22/2023 TSH 04/22/2024 [...] filedocumented as of this encounter Care Teams Bias Binding Folder Relationship Specialty Start Date End Date Bozena De, DO [address] [place] [address] PCP - General Family Medicine 04/22/23 documented as of this encounter
--- OUTSIDE RECORDS SUMMARY | 2023-11-10 12:14 | External Medical Summary | Summary of Care ---
Author Name Unknown Organization [facility] Address [address] [place] [address] Phone [phone] Care Team Providers Care Incubator Machine Operator Name Role Phone Bozena De DO Primary Care Provider Reason for Visit * Reason Comments Blood Pressure Check Encounter Details Date Type Department Care Team Description 07/07/2023 Nurse Only Nephrology, [facility] [address] [place] [address] Sp, Nurse Nephrology [address] [place] [address] Blood Pressure Check Allergies Active Allergy Reactions Severity Noted Date Comments Baclofen Neuro complications (Please comment) 08/18/2022 confusion Phenytoin Sodium Extended Itching Low 01/07/2017 Fentanyl 04/24/2022 Lamotrigine 01/07/2017 Midazolam Neuro complications (Please comment) High 08/18/2022 confusion documented as of this encounter (statuses as of 07/07/2023) Medications Medication Sig Dispensed Refills Start Date [...] Tablet before bedtime. 0 Active Afrin Nasal [place] 0.05 % Nasal Solution (oxymetazoline) Administer 2 [...] hemoglobin A1c goal of less than 8.0% ([facility]) Take 1 Tablet by mouth in the [...] as of this encounter (statuses as of 07/07/2023) Active Problems Problem Noted Date Hypertensive kidney [...] suboptimal and may underestimate any underlying obstruction [place] in past . Cards-saw Dr Live in [...] as of this encounter (statuses as of 07/07/2023) Immunizations Name Administration Dates Next Due COVID-19 mRNA, LNP-s, No Pre serve, 2-Dose Series (Needcheck) 02/05/2021,01/15/2021 COVID-19, LNP-s, No Preserve , Torito-sucrose, [...] as of this encounter Nursing Notes * Prudence Hudson RN - 07/07/2023 2:40 PM EDT Pt here for blood pressure cuff validation. Pt states that her machine is over 20 years old.She states that it reads error a lot of times. Cuff was validated against clinic cuff but is requesting newmachine. Order placed thru [facility]. documented in this encounter Plan of Treatment Upcoming Encounters Date Type Specialty Care Team Description 07/29/2023 Office Visit Family Medicine Bozena De, DO [address] [place] [address] 07/29/2023 Imaging Radiology 08/31/2023 Nurse Only [facility], Nurse Annual Wellness Visit [address] [place] [address] 09/28/2023 Office Visit Dermatology Ambrocio Ramos MD [address] [place] [address] 10/26/2023 Office Visit Nephrology Nathaly Bone MD [address] [facility] [place] [address] Health Maintenance Due Date Last Done [...] 07/02/2023, 09/0 11/2022, 04/22/2023, Additional history exists Depression Screening, Annual for Pts 12 and Over 04/22/2024 04/22/2023 Diabetic Foot Exam 04/22/2024 04/22/2023 [...] filedocumented as of this encounter Care Teams Incubator Machine Operator Relationship Specialty Start Date End Date Bozena De, DO [address] [place] [address] PCP - General Family Medicine 04/22/23 documented as of this encounter
--- OUTSIDE RECORDS SUMMARY | 2023-11-10 12:14 | External Medical Summary | Summary of Care ---
Author Name Unknown Organization [facility] Address [address] [place] [address] Phone [phone] Care Team Providers Care Senior Cost Estimator Name Role Phone GailBozena haas Primary Care Provider [phone] Reason for Visit * Reason Comments NEW PATIENT Encounter Details Date Type Department Care Team Description 07/02/2023 Office Visit Nephrology, Alison Sena [address] [facility] [place] [address] Mandy Rao MD [address] [facility] [place] [address] CKD (chronic kidney disease) stage 4, GFR 15-29 ml/min ([facility])*; HTN, goal below 130/80; Uncontrolled hypertension, stage 1; Abnormal heart sounds Allergies Active Allergy Reactions Severity Noted Date Comments Baclofen Neuro complications (Please comment) 08/18/2022 confusion Phenytoin Sodium Extended Itching Low 01/07/2017 Fentanyl 04/24/2022 Lamotrigine 01/07/2017 Midazolam Neuro complications (Please comment) High 08/18/2022 confusion documented as of this encounter (statuses as of 07/12/2023) Medications Medication Sig Dispensed Refills Start Date [...] Tablet before bedtime. 0 Active Afrin Nasal Acme 0.05 % Nasal Solution (oxymetazoline) Administer 2 [...] as of this encounter (statuses as of 07/12/2023) Active Problems Problem Noted Date Hypertensive kidney [...] suboptimal and may underestimate any underlying obstruction [facility] in past . Cards-saw Dr Live [...] as of this encounter (statuses as of 07/12/2023) Immunizations Name Administration Dates Next Due COVID-19 mRNA, LNP-s, No Pre serve, 2-Dose Series (Adfaces) 02/05/2021,01/15/2021 COVID-19, LNP-s, No Preserve , Torito-sucrose, [...] Past Smokeless Tobacco: Never Tobacco Cessation:Counseling Given: Not Answered Alcohol Use Standard Drinks/Week Comments Not Currently [...] Sign Reading Time Taken Comments Blood Pressure 145/87 07/02/2023 2:38 PM EDT Pulse 61 07/02/2023 2:38 PM EDT Temperature 36.6 C (97.8 F) 07/02/2023 2:38 PM ED T Respiratory Rate - - Oxygen Saturation - - Inhaled Oxygen Concentration - - Weight 50.5 kg (111 lb 4.8 oz) 07/02/2023 2:38 P M EDT Height - - Body Mass Index 25.64 04/22/2023 10:17 AM EDT documented in this encounter Patient Instructions * Patient Instructions* Mandy Rao MD - 07/02/2023 3:12 PM EDT -do SICK DAYS for jardiance >> so if you are unable to keep food down for some reason becauseof illness or if you are told not to eat to get ready for a procedure, then hold the jardiance those days and then resume -check labs every 3-4 months for kidneys > next labs this month or next -will have CKD special education case managerfleet sales manager you to follow for CKD 4 -no medication changes today -pls bring home BP cuff in to check its accuracy with kidney nurse >IF cuff accurate, do a 3 day BP log >> check BP 2X in AM and 2X in PM each about a minuteapart for 3 days and send me results -eat a low sodium diet (less than 2000 mg or 1/2 tsp) daily documented in this encounter Progress Notes * Mandy Rao MD - 07/02/2023 2:55 PM EDT NEPHROLOGY CLINIC NOTE Nephrology, Alison Sena [address] [facility] [address] 07/02/2023, 2:55 PM Patient Name: Poppy Mars Poppy Mars is a 73 year old female being seen in consultation today in Nephrology clinic, atthe request of Bozena Corral DO for ckd4. 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 Sheldon, stable on topamax Type 2 diabetes mellitus (HCC) Type 2 diabetes mellitus with hemoglobin A1c goal of less than 8.0% ([facility]) 01/07/2017 Patient Active Problem List Diagnosis Code Type 2 diabetes mellitus with hemoglobin A1c goal of less than 8.0% ([facility]) E11.9 HTN, goal below 140/90 I10 Dyslipidemia, goal LDL below 100 E78.5 Hypothyroidism E03.9 Seizure disorder ([facility]) G40.909 Well adult exam Z00.00 Localization-related symptomatic epilepsy and epileptic syndromes with complex partial seizures, not intractable, without status epilepticus ([facility]) G40.209 Kidney disease, chronic, stage IV (GFR 15-29 ml/min) ([facility]) N18.4 Personal history of malignant neoplasm of breast Z85.3 Benign breast cyst in female, left N60.02 Type 2 diabetes mellitus with stage 4 chronic kidney disease, without long-term current use of insulin ([facility]) E11.22, N18.4 Other chronic sinusitis J32.8 Family history of breast cancer in mother Z80.3 Moderate persistent asthma without complication J45.40 Hypertensive kidney disease with chronic kidney disease stage IV ([facility]) I12.9, N18.4 HPI: 73 year old female presents to establish care for CKD 4. PMH of HTN since 1992 and 2017 admission for HTN emergency [facility], DM since 2005, asthma, complex partial seizures, breast cancer; chronic insomnia. 1991 had radioactive isotope for thyroid Pt w/ remote hx of ketoacidosis x 1. [facility]/ [facility] neph, Dr Harris and w/ [facility] endocrine, Dr Sinclair.Pt born prematurely w/ congenital heart issue; no surgery but did follow / pediatric cardiology. BP "does what it wants to" and has been as high as 280 systolic w/o sx. Had cardiac cath at [facility]. No further HTN urgency/emergency episodes since then. Just started jardiance 2 days back > feels worried about the med; states was reluctant to start this med. Home blood pressure checks: upper arm; checks periodically History of stones: N Family history of CKD or ESRD: sister with advanced CKD w/ hx of anorexia/eating disorder after a lot of laxatives/diet pills NSAID use: N Herbals/supplements: N Last hospital stay: 2017 as above States that has in her life had only one seizure. On Topamax; follows w/ Dr Piot NIEVES Recent L wrist derm bx and awaiting result. since 2002; feels her 's related to [place] [facility] [place] re [place]RT to [facility]. Pt son w/ cerebellar ataxia and EtOH abuse, significant depression; and she is his guardian/POA. REVIEW OF SYSTEMS: No F/C, unintended wt loss or gain, energy level and appetite acceptable; c/o poor sleep > chronic issue No acute visual changes or COHEN No sinus, dental, throat pain No neck lumps/bumps or stiffness No palpitations, angina, orthopnea, LE edema No cough, wheeze, or dyspnea No N/V/D/C/abd pain No dysuria, hematuria, nocturia >2X; no new or worrisome voiding symptoms; really bothered by her urinary incontinence No rash or generalized itch No focal joint/muscle aches apart from mild pain/itch at wrist bx site No inappropriate bleeding or bruising No tremor, seizures, focal or global weakness or paresthesias No orthostatic or presyncopal symptoms; no falls Current Outpatient Medications Medication Sig Dispense Refill [...] and 1 Tablet before bedtime. Afrin Nasal Acme 0.05 % Nasal Solution (oxymetazoline) Administer 2 Sprays into nostril in the morning and 2 Sprays before bedtime. Methocarbamol 500 MG Oral Tablet (Robamol) Take 1 Tablet by mouth 2 times a day as needed. Omeprazole 20 MG Oral Capsule Delayed Release (PriLOSEC) Take by mouth 1 Capsule in the morning. 1 hour before the first meal of the day. 90 Capsule 1 Ondansetron HCl 4 MG Oral Tablet Take [...] mouth in the morning. 90 Tablet 3 Repaglinide 2 MG Oral Tablet (Prandin) take 2 tablets by mouth before meals up to four times a day . HOLD IF FS IS LESS THAN 130 720 Tablet 1 Breo Ellipta 200-25 MCG/ACT Inhalation Aerosol Powder Breath Activated inhale 1 puff by mouth and INTO THE LUNGS every morning (Patient taking differently: Inhale 1 Puff by mouth at bedtime.) 60 Blister Dosing Unit 2 Calcium Carbonate Antacid 500 MG Oral Tablet Chewable Take 1 Tablet by mouth as needed for Heartburn. Zoster Vac Recomb Adjuvanted 50 MCG/0.5ML Intramuscular Suspension Reconstituted (Shingrix) Inject 0.5 mL into a large muscle now and repeat dose in 60 to 180 days 1 Each 0 Atenolol 50 MG Oral Tablet (Tenormin) Take [...] mouth in the morning. 30 Tablet 2 Cephalexin 500 MG Oral Capsule (Keflex) 1 capsule twice daily for 1 week 14 Capsule 0 Current Facility-Administered Medications Medication Dose Route Frequency Provider Last Rate Last Admin Albuterol Sulfate (Proventil) (2.5 MG/3ML) 0.083% inhalation solution 2.5 mg 2.5 mg Nebulizer Once PRN Lowell Rodriguez MD 2.5 mg at 10/13/22 1325 Albuterol Sulfate (Proventil) (2.5 MG/3ML) 0.083% inhalation solution 2.5 mg 2.5 mg Nebulizer Once PRN Lowell Rodriguez MD Review of patient's allergies indicates: Allergen Reactions Midazolam Neuro complications (Please comment) confusion Baclofen Neuro complications (Please comment) confusion Fentanyl Lamictal [Lamotrigine] Dilantin [Phenytoin Sodium Extended] Itching Social History Socioeconomic History Marital status: Spouse name: Not on file Number of children: Not on file Years of education: Not on file Highest education level: Not on file Occupational History 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 Tobacco Use Smoking status: Never Passive exposure: Past Smokeless tobacco: Never Vaping Use Vaping Use: Never used Substance and Sexual Activity Alcohol use: Not Currently Comment: rare, at weddings Drug use: No Sexual activity: Not on file Comment: . son Jd Souza. Other Topics Concern Not on file Social History Narrative No specific buddhist denomination House is in Jd's name (son) +stress w/ex's (affair, slept w/Jd too) Social Determinants of Health Financial Resource Strain: Not on file Food Insecurity: No Food Insecurity Worried About Running Out of Food in the Last Year: Never true Ran Out of Food in the Last Year: Never true Transportation Needs: Not on file Physical Activity: Not on file Stress: Not on file Social Connections: Not on file Intimate Partner Violence: Not on file Housing Stability: Not on file Family History Problem Relation Age of Onset Breast Cancer Mother 66 Other (Other) Father back surgery Heart Disorder Father [place], passed at 63 Addiction problem Sister both sisters in [place]. Other (ckd) Sister Addiction problem Sister Lung cancer Brother 50 Heart Disorder Grandmother (Maternal) [place] Heart Disorder Grandmother (Paternal) "Dropsy" Heart Disorder Grandfather (Paternal) [place] Family Status Relation Status Mo Fa Sis Alive Sis Alive Bro MGMA (Not Specified) PGMA (Not Specified) PGFA (Not Specified) PHYSICAL EXAMINATION: BP Readings from Last 6 Encounters: 09/01/23 145/87 04/22/23 142/76 02/24/23 120/68 11/04/22 118/66 09/05/22 110/68 08/18/22 154/84 Wt Readings from Last 6 Encounters: 07/02/23 50.5 kg (111 lb 4.8 oz) 04/22/23 50.3 kg (111 lb) 10/13/22 49.6 kg (109 lb 5.6 oz) 09/05/22 48.1 kg (106 lb) 08/18/22 49.2 kg (108 lb 8 oz) 04/24/22 50 kg (110 lb 3.2 oz) Pulse Readings from Last 6 Encounters: 07/02/23 61 04/22/23 91 02/24/23 58 11/04/22 63 09/05/22 60 08/18/22 72 NAD, oriented x 3, ambulatory and on table w/o asst, elegantly dressed, very small framed Normocephalic, atraumatic, eomi nonicteric sclerae MMM Supple neck, hoarse voice RRR w/o m/g/r but w/ odd popping S2; no edema CTAB w/ good air mvt NT abd, +BS, soft No CVA TTP, no diaper or amos No cyanosis or clubbing No rash No tremor, focal or global weakness; fluent speech, good hx LABS: Recent Labs Units 07/02/23 1602 04/22/23 1304 11/04/22 1306 09/05/22 1207 SODIUM - [facility] mmol/L 139 139 140 139 POTASSIUM - [facility] mmol/L 4.0 4.1 4.2 3.9 CHLORIDE - [facility] mmol/L 106 104 107 103 CO2 - [facility] mmol/L 20* 21* 22 20* EGFR-OUTSIDE LAB 19* -- -- -- BUN - [facility] mg/dL 27* 34* 20 36* CREATININE - [facility] mg/dL 1.9* 1.8* 1.8* 1.6* ESTIMATED GLOMERULAR FILTRATION RATE - [facility] mL/min 27* 29* 30* 34* Latest Ref Rng 06/15/2020 12/03/2021 09/05/2022 11/04/2022 NEPH-FLOW Cr 0.5 - 1.0 mg/dL 1.92 ! (E) 2.2 (H) 1.6 (H) 1.8 (H) eGFR >=60 mL/min 25.7 (E) 23 (L) 34 (L) 30 (L) eGFR >=60 Recent Labs Units 09/05/22 1207 HGB - [facility] g/dL 13.9 Recent Labs Units 07/02/23 1602 04/22/23 1304 11/04/22 1306 09/05/22 1207 CALCIUM - [facility] mg/dL 9.7 9.9 9.8 10.0 PHOSPHORUS - [facility] mg/dL 4.0 4.3 -- -- 25-HYDROXY VITAMIN D - [facility] ng/mL 41 -- -- -- PTH - [facility] pg/mL -- 45 -- -- Recent Labs Units 04/22/23 1415 11/04/22 1306 05/20/22 0959 12/03/21 1518 HEMOGLOBIN A1C - [facility] % 7.4* 7.1* 7.3* 7.0* Recent Labs Units 11/04/22 1306 12/03/21 1527 ALBUMIN / CREATININE RATIO, URINE - [facility] mg/g Creat 38* 16 Latest Reference Range & Units 06/04/23 11:14 Color, Urine Light Yellow, Yellow Yellow Clarity, Urine Clear Clear Glucose, Urine Negative mg/dL Negative Bilirubin, Urine Negative Negative Ketone, Urine Negative mg/dL Negative Specific [place], Urine 1.003 - 1.030 1.020 Blood, Urine Negative Negative pH, Urine 5.0, 5.5, 6.0, 6.5, 7.0, 7.5 units 5.5 Protein, Urine Negative mg/dL Negative Urobilinogen, Urine 0.2, 1.0 mg/dL 0.2 Nitrite, Urine Negative Negative Esterase, Urine Negative Small ! !: Data is abnormal No results for input(s): COLRUA, CLARITYUA, GLUCUA, BILIUA, KETOUA, SG, BLDUA, PHURIN, PROTUA, UROUA, NITRIU, ESTERU, BACTERIAUR, WBCURINE, RBCURINE in the last 81490 hours. PERTINENT IMAGING INFO: Renal u/s 05/2023 RIGHT KIDNEY: 7.6 cmx3.4 cmx3.5 cm. Normal size and echogenicity. No hydronephrosis. LEFT KIDNEY: 8.0 cmx4.0 cmx3.8 cm. Normal size and echogenicity. No hydronephrosis. BLADDER: Partially filled. AORTA: Visualized portions normal in caliber. IMPRESSION Normal examination of the kidneys. [facility] ECG 2019 ?L atrial enlargement, sinus bradycardia; stable from prior ASSESSMENT AND PLAN: CKD (chronic kidney disease) stage 4, GFR 15-29 ml/min ([facility]) (Primary) - BASIC METABOLIC PANEL - PHOSPHORUS - 25-HYDROXY VITAMIN D - CYSTATIN C WITH EGFR - URIC ACID - EKG; Future; Expected date: 07/12/2023 HTN, goal below 130/80 - EKG; Future; Expected date: 07/12/2023 Uncontrolled hypertension, stage 1 Abnormal heart sounds - EKG; Future; Expected date: 07/12/2023 Follow Up: Return in about 3 months (around 10/01/2023) for clinic visit w/ MD. | For: clinic visit w/ | Check-out note: RENAL NV for cuff check To lab MD only Variable renal function w/ 50-100 mg albuminuria on Nov 2022 ACR and Apr 2023 BMP, Nov 2022 bmp andbmp today support early CKD 4 dx. K acceptable, appears to have chronic metabolic acidosis -no anshu/arb allergy and look to start once stabilized on SGLT2i -bicarb if persistent acidosis -continue SGLT2i; sick days as below -CKD timo mgr > note sent HTN on monotherapy w/ poor control > half of past 6 [facility] encounters w/ BP above target including today -home bp cuff check/3 day as below -BP technique handout given to pt and discussed >5 min -cont amlodipine current dose -lifestyle measures reviewed Abnormal heart sound; borderline ECG from 3 years ago at outside facility; now w/ advanced CKD uncontrolled HTN and hx of pediatric cardiology issue >> ECG and low threshold for TTE Patient Instructions -do SICK DAYS for jardiance >> so if you are unable to keep food down for some reason becauseof illness or if you are told not to eat to get ready for a procedure, then hold the jardiance those days and then resume -check labs every 3-4 months for kidneys > next labs this month or next -will have CKD special education case managerfleet sales manager you to follow for CKD 4 -no medication changes today -pls bring home BP cuff in to check its accuracy with kidney nurse >IF cuff accurate, do a 3 day BP log >> check BP 2X in AM and 2X in PM each about a minuteapart for 3 days and send me results -eat a low sodium diet (less than 2000 mg or 1/2 tsp) daily Mandy Rao MD CC: Ref: BOZENA CORRAL[[id number]] [address] [place] [address] (office) [phone] (fax) PCP: BOZENA CORRAL [address] [place] [address] [phone] This chart was completed in part utilizing [employer] Speech Voice Recognition Software. Randomword insertions, pronoun errors, and incomplete sentences are an occasional consequence of this system due to software limitations, and ambient noise. Any questions or concerns about the content, text, or information contained within the body of this dictation should be directly addressed to the provider for clarification. documented in this encounter Nursing Notes * Polly Dc LPN - 07/02/2023 2:35 PM EDT New patient- referred by pcp. Referral reason is listed as Kidney disease, chronic, stage IV. Pt isunsure why she is here today documented in this encounter Miscellaneous Notes * Result Encounter Note - Mandy Rao MD - 07/12/2023 7:06 AM EDT Repeat labs show ongoing CKD 4 w/ [...] CKD 4 or can discuss w/ CKD health communications specialist and at next visit documented in this encounter Plan of Treatment Upcoming Encounters Date Type Specialty Care Team Description 07/29/2023 Office Visit Family Medicine Bozena Corral, DO [address] [place] [address] 07/29/2023 Imaging Radiology 08/31/2023 Nurse Only [facility], Nurse Annual Wellness Visit [address] [facility] [address] [place] [address] 09/28/2023 Office Visit Dermatology Amrbocio Ramos MD [address] [facility] [place] [address] 10/26/2023 Office Visit Nephrology Nathaly Bone MD [address] [place], [place] [id number] Scheduled Orders Name Type Priority Associated Diagnoses Orde r Schedule EKG EKG Routine CKD (chronic kidney disease) stage 4, GFR 15-29 ml/min ([facility]) HTN, goal below 130/80 Abnormal heart sounds Expected: 07/12/2023 (Approximate), Expires: 08/11/2024 Health Maintenance Due Date Last Done Comments [...] Procedure Name Priority Date/Time Associated Diagnosis Comments CYSTATIN C WITH EGFR Routine 07/02/2023 4:02 PM EDT CKD (chronic kidney disease) stage 4, GFR 15-29 ml/min (HCC) 25-HYDROXY VITAMIN D Routine 07/02/2023 4:02 PM EDT CKD (chronic kidney disease) stage 4, GFR 15-29 ml/min (HCC) BASIC METABOLIC PANEL Routine 07/02/2023 4:02 PM EDT CKD (chronic kidney disease) stage 4, GFR 15-29 ml/min (HCC) PHOSPHORUS Routine 07/02/2023 4:02 PM EDT CKD (chronic kidney disease) stage 4, GFR 15-29 ml/min (HCC) URIC ACID Routine 07/02/2023 4:02 PM EDT CKD (chronic kidney disease) stage 4, GFR 15-29 ml/min (HCC) documented in this encounter Results * URIC ACID (07/02/2023 4:02 PM EDT) Uric Acid 5.3 2.4 - 5.7 mg/dL 07/02/2023 11:53 PM EDT [facility] [place] Venous blood specimen / Unknown Venipuncture / Unknown 07/02/2023 4:02 PM EDT 07/02/2023 4:02 PM EDT Mandy Rao MD LAB BLOOD ORDERAB LES [facility] [address] [place] [address] * (ABNORMAL) CYSTATIN C WITH EGFR (07/02/2023 4:02 PM EDT) Cystatin C 2.60(H) 0.52 - 1.10 mg/L 07/06/2023 1:29 PM EDT [facility] EGFR 19(L) >=60 07/06/2023 1:29 PM EDT [facility] Comment: REFERENCE RANGE:>=60 mL/min/1.73mE2 Test Performed at: [facility] [address] [place] [address] Bertin Haskins M.D., Ph.D.,Director of Laboratories Blood Venous blood specimen / Unknown Venipuncture / Unknown 07/02/2023 4:02 PM EDT 07/02/2023 4:02 PM EDT Mandy Rao MD LAB BLOOD ORDERAB LES Performing Organization Address City/[facility]/ZIP Co de Phone Number [facility] [place] [address] [place] [address] * 25-HYDROXY VITAMIN D (07/02/2023 4:02 PM EDT) 25-Hydroxy Vitamin D 41 >19 ng/mL 07/03/2023 12:26 AM EDT [facility] Blood Venous blood specimen / Unknown Venipuncture / Unknown 07/02/2023 4:02 PM EDT 07/02/2023 4:02 PM EDT [facility] - 07/03/2023 12:26 AM EDT Deficient: <20 ng/mL Insufficient: 20-29 ng/mL Recommended/Optimum:30-50 ng/mL Vitamin D intoxication is rare. If suspicious of Vitamin D toxicity, evaluation of serum Calcium and PTH is recommended. Mandy Rao MD LAB BLOOD ORDERAB LES Performing Organization Address City/[facility]/ZIP Co de Phone Number [facility] [address] [place] [address] * PHOSPHORUS (07/02/2023 4:02 PM EDT) Phosphorus 4.0 2.5 - 4.8 mg/dL 07/02/2023 11:34 PM EDT [facility] Blood Venous blood specimen / Unknown Venipuncture / Unknown 07/02/2023 4:02 PM EDT 07/02/2023 4:02 PM EDT Mandy Rao MD LAB BLOOD ORDERAB LES [facility] [address] [place] [address] * (ABNORMAL) BASIC METABOLIC PANEL (07/02/2023 4:02 PM EDT) BUN 27(H) 6 - 20 mg/dL 07/02/2023 11:34 PM EDT [facility] Creatinine 1.9(H) 0.5 - 1.0 mg/dL 07/02/2023 11:34 PM EDT [facility] Estimated Glomerular Filtration Rate 27(L) >=60 mL/min 07/02/2023 11:34 PM EDT [facility] Comment:eGFR is calculated b ased on the CKD-EPI 2020 equation Sodium 139 135 - 146 mmol/L 07/02/2023 11:34 PM EDT [facility] Potassium 4.0 3.5 - 5.1 mmol/L 07/02/2023 11:34 PM EDT [facility] Chloride 106 98 - 107 mmol/L 07/02/2023 11:34 PM EDT [facility] CO2 20(L) 22 - 32 mmol/L 07/02/2023 11:34 PM EDT [facility] Anion Gap 13 7 - 15 mmol/L 07/02/2023 11:34 PM EDT [facility] Glucose 160(H) 70 - 120 mg/dL 07/02/2023 11:34 PM EDT [facility] Calcium 9.7 8.4 - 10.2 mg/dL 07/02/2023 11:34 PM EDT [facility] Blood Venous blood specimen / Unknown Venipuncture / Unknown 07/02/2023 4:02 PM EDT 07/02/2023 4:02 PM EDT Mandy Rao MD LAB BLOOD ORDERAB LES [facility] [address] [place] [address] documented in this encounter Visit Diagnoses Diagnosis CKD (chronic kidney disease) stage 4, GFR 15-29 ml/min ([facility])- Primary Chronic kidney disease, Stage IV (severe) HTN, goal below 130/80 Unspecified essential hypertension Uncontrolled hypertension, stage 1 Unspecified essential hypertension Abnormal heart sounds Other abnormal heart sounds documented in this encounter Care Teams Senior Cost Estimator Relationship Specialty Start Date End Date Bozena Corral, DO [address] [place] [address] PCP - General Family Medicine 04/22/23 documented as of this encounter
--- OUTSIDE RECORDS SUMMARY | 2023-11-10 12:14 | External Medical Summary | Summary of Care ---
Author Name Unknown Organization [facility] Address [address] [place] [address] Phone [phone] Care Team Providers Care Woven Wood Shade Assembler Name Role Phone Bozena De Primary Care Provider + [phone] Reason for Visit * Reason Comments Wound Recheck Pt here for recheck of wound on right forearm. Encounter Details Date Type Department Care Team Description 07/02/2023 Nurse Only Dermatology [facility] Jaida [place] [address] [place] [address] Sp, Nurse Dermatology [address] [facility] [place] [address] Wound Recheck (Pt here for recheck of woun... Allergies Active Allergy Reactions Severity Noted Date Comments Baclofen Neuro complications (Please comment) 08/18/2022 confusion Phenytoin Sodium Extended Itching Low 01/07/2017 Fentanyl 04/24/2022 Lamotrigine 01/07/2017 Midazolam Neuro complications (Please comment) High 08/18/2022 confusion documented as of this encounter (statuses as of 07/04/2023) Medications Medication Sig Dispensed Refills Start Date [...] Tablet before bedtime. 0 Active Afrin Nasal [place] 0.05 % Nasal Solution (oxymetazoline) Administer 2 [...] as of this encounter (statuses as of 07/04/2023) Active Problems Problem Noted Date Hypertensive kidney [...] dx 2005, follows w/Dr. Sheldon stable on [employer] Well adult exam 12/03/2021 Overview: 10/22 PFTs -decreasedCONCLUSION: Spirogram is within acceptable limits. There is mild decrease in flow at the level of the small airways. Expiratory time is suboptimal and may underestimate any underlying obstruction [facility] in past . Cards-saw Dr [...] as of this encounter (statuses as of 07/04/2023) Immunizations Name Administration Dates Next Due COVID-19 [...] rule out infection. documented in this encounter Miscellaneous Notes * Addendum Note - Tania Prasad MD - 07/04/2023 8:23 PM EDTAddended by: TANIA PRASAD on: 07/04/2023 08:23 PM Modules accepted: Orders documented in this encounter Plan of Treatment Upcoming Encounters Date Type Specialty Care Team Description 07/07/2023 Nurse Only Nephrology Sp, Nurse Nephrology [address] [place] [address] 07/29/2023 Office Visit Family Medicine Bozena De DO [address] [place] [address] 07/29/2023 Imaging Radiology 08/31/2023 Nurse Only [facility], Nurse Annual Wellness Visit [address] [facility] [address] [place] [address] 09/28/2023 Office Visit Dermatology Ambrocio Ramos MD [address] [place] [address] 10/26/2023 Office Visit Nephrology Nathaly Bone MD [address] [place], [place] [phone] Health Maintenance Due Date Last Done Comments [...] Procedure Name Priority Date/Time Associated Diagnosis Comments CULTURE, WOUND, SUPERFICIAL, AEROBIC Routine 07/02/2023 1:49 PM EDT Secondary impetiginization documented in this encounter Results * (ABNORMAL) CULTURE, WOUND, SUPERFICIAL, AEROBIC (07/02/2023 1:49 PM EDT) Culture Growth Moderate Staphylococcus aureus(A) MICROBROTH DILUTIONS 07/04/2023 12:59 PM EDT [facility] Superficial Wound Left upper arm structure / Unknown Non-blood Collection / Unknown 07/02/2023 1:49 PM EDT 07/02/2023 5:04 PM EDT Organism Antibiotic Method Susceptibility Staphylococcus aureus Clindamycin MICROBROTH DILUTIONS <=0.25: Resistant Staphylococcus aureus Erythromycin MICROBROTH DILUTIONS >=8: Resistant Staphylococcus aureus Oxacillin MICROBROTH DILUTIONS <=0.25: Susceptible Staphylococcus aureus Penicillin G MICROBROTH DILUTIONS >=0.5: Resistant Staphylococcus aureus Tetracycline MICROBROTH DILUTIONS <=1: Susceptible Staphylococcus aureus Trimeth/Sulfametho xazo le MICROBROTH DILUTIONS <=10: Susceptible Staphylococcus aureus Vancomycin MICROBROTH DILUTIONS <=0.5: Susceptible Tania Prasad MD LAB MICRO - GENE RAL ORDERABLES LABORATORY [facility] [address] [place] [address] documented in this encounter Visit Diagnoses Diagnosis Secondary impetiginization- Primary Impetigo documented in this encounter Care Teams Woven Wood Shade Assembler Relationship Specialty Start Date End Date Bozena De, [address] [place] [address] PCP - General Family Medicine 04/22/23 documented as of this encounter
--- OUTSIDE RECORDS SUMMARY | 2023-11-10 12:14 | External Medical Summary | Summary of Care ---
Author Name Unknown Organization [facility] Address [address] [place] [address] Phone [phone] Care Team Providers Care Software Integrator Name Role Phone Bozena De DO Primary Care Provider Reason for Visit * Reason Onset Date Comments case management 07/12/2023 CKD CM attempt t o contact Encounter Details Date Type Department Care Team Description 07/12/2023 Seed Cleaning Machine Operator Telephone Care Coordination [address] [place] [address] Emily Quintanilla, management retail intern (CKD CM attempt to contact) Allergies Active [...] Tablet before bedtime. 0 Active Afrin Nasal [place] 0.05 % Nasal Solution (oxymetazoline) Administer 2 [...] suboptimal and may underestimate any underlying obstruction [facility] in past . Cards-saw [...] mRNA, LNP-s, No Pre serve, 2-Dose Series ([employer]) 02/05/2021,01/15/2021 COVID-19, LNP-s, No Preserve , Torito-sucrose, [...] Telephone Encounter - Emily Quintanilla RN - 07/12/2023 10:10 AM EDT CKD CM Screening Received referral from Dr. Rao. Pt is 73yrs old. Dx. Type II DM, HTN goal <140/90, CKD 4, Labs: completed 07/02/23. Creat/GFR- 1.9/, HgbA1C 7.4 done 04/22/23 Dr. Rao would like topamax dose verified. Call placed to pt, no answer, left message requesting a call back. Plan if no response, will try again later this week. Follow-up Routine Attempted Phone Call First Attempt Call Outcome Left Voicemail/Message Plan To attempt another outreach Emily Quintanilla RN Kidney Transitions Specialist CKD Seed Cleaning Machine Operator documented in this encounter Plan of Treatment Upcoming Encounters Date Type Specialty Care Team Description 07/29/2023 Office Visit Family Medicine Bozena De, 293 [place] [address] 07/29/2023 Imaging Radiology 08/31/2023 Nurse Only [facility], Nurse Annual Wellness Visit [address] [facility] 293 [place] [address] 09/28/2023 Office Visit Dermatology Ambrocio Ramos MD 200 [place] [address] 10/26/2023 Office Visit Nephrology Nathaly Bone MD [address] [facility] [place] [phone] Health Maintenance Due Date Last Done Comments [...] filedocumented as of this encounter Care Teams Software Integrator Relationship Specialty Start Date End Date Bozena De, DO [address] [facility] [place] [address] PCP - General Family Medicine 04/22/23 documented as of this encounter
--- OUTSIDE RECORDS SUMMARY | 2023-11-10 12:14 | External Medical Summary ---
Author Name Unknown Address Unknown Organization [id number]:LABORATORY [facility] - [address] [place] [address] Laboratory Report Ordering Provider Test Date Status PRAVIN ACOSTA 07/02/2023 16:02:03 Final Deficient: <20 ng/mL
Ins ufficient: 20-29 ng/mL
Recommended/Optimum:30-50 ng/mL

Vitamin D intoxication is rare. If suspicious of Vitamin D toxicity, evaluation of serum Calcium and PTH is recommended. Observation Date Value Abnormality Reference (Units ) Status 25-OH Vitamin D total 07/02/2023 16:02:03 41 >19 (ng/mL) Final Performing Location LABORATORY [facility] - [address] [place] [address]
--- OUTSIDE RECORDS SUMMARY | 2023-11-10 12:14 | External Medical Summary ---
Author Name Unknown Address Unknown Organization [id number]:LABORATORY [facility] - [facility] [address] [facility] [address] [place] [address] Laboratory Report Ordering Provider Test Date Status PRAVIN ACOSTA 07/02/2023 16:02:03 Final Observation Date Value Abnormality Reference (Units ) Status BUN 07/02/2023 16:02:03 27 Above high normal 6-20 (mg/dL) Final Creatinine 07/02/2023 16:02:03 1.9 Above high normal 0.5-1.0 (mg/dL) Final Glomerular filtration rate/1.73 sq M.predicted [Volume Rate/Area] in Serum, Plasma or Blood by Creatinine-based formula (CKD-EPI) 07/02/2023 16:02:03 27 Below low normal >=60 (mL/min) Final eGFR is calculated based on the CKD-EPI 2020 equation SODIUM 07/02/2023 16:02:03 139 135-146 (m mol/L) Final Potassium 07/02/2023 16:02:03 4.0 3.5-5.1 (m mol/L) Final Cl 07/02/2023 16:02:03 106 98-107 (mm ol/L) Final CO2 07/02/2023 16:02:03 20 Below low normal 22- 32 (mmol/L) Final Anion gap 07/02/2023 16:02:03 13 7-15 (mmol /L) Final Glucose 07/02/2023 16:02:03 160 Above high normal 70 -120 (mg/dL) Final Calcium 07/02/2023 16:02:03 9.7 8.4-10.2 ( mg/dL) Final Performing Location LABORATORY [facility] - [address] [place] [address]
--- OUTSIDE RECORDS SUMMARY | 2023-11-10 12:14 | External Medical Summary ---
Author Name Unknown Address Unknown Organization [id number]:[facility] - [address] [place] [address] Laboratory Report Ordering Provider Test Date Status PRAVIN ACOSTA 07/02/2023 16:02:03 Final Observation Date Value Abnormality Reference (Units ) Status Phosphate 07/02/2023 16:02:03 4.0 2.5-4.8 (m g/dL) Final Performing Location [facility] - [address] [place] [address]
--- OUTSIDE RECORDS SUMMARY | 2023-11-10 12:14 | External Medical Summary | Summary of Care ---
Author Name Unknown Organization [facility] Address [address] [facility] [address] Phone [phone] Care Team Providers Care Pay Station Attendant Name Role Phone Bozena De DO Primary Care Provider Reason for Visit * Reason Comments Outpatient Testing Encounter Details Date Type Department Care Team Description 07/02/2023 Laboratory Laboratory [place] Gary Sena [address] [place] [phone] [place], Lab Scenery [address] [place] [address] Arrived Allergies Active Allergy Reactions Severity Noted Date [...] Tablet before bedtime. 0 Active Afrin Nasal [place] 0.05 % Nasal Solution (oxymetazoline) Administer 2 [...] suboptimal and may underestimate any underlying obstruction [facility] in past . Cards-saw Dr [...] mRNA, LNP-s, No Pre serve, 2-Dose Series ([employer]) 02/05/2021,01/15/2021 COVID-19, LNP-s, No Preserve , Torito-sucrose, [...] Nurse Only Nephrology Sp, Nurse Nephrology [address] [facility] [address] 07/29/2023 Office Visit Family Medicine [facility] De [facility] [address] [facility] [address] 07/29/2023 Imaging Radiology 08/31/2023 Nurse Only [facility], Nurse Annual Wellness Visit [address] [place] [address] [facility] [address] 09/28/2023 Office Visit Dermatology Ambrocio Ramos MD [address] [facility] [address] 10/26/2023 Office Visit Nephrology Nathaly Bone MD [address] [place] [address] Health Maintenance Due Date Last Done Comments [...] 09/05/2023 09/05/2022, 06/01, 02/25/2001 GFR 10/22/2023 04/22/2023, 01/0 01/2023, 09/05/2022, Additional history exists HbA1c 10/22/2023 04/22/2023, 01/0 01/2023, 05/20/2022, Additional history exists Albumin/Creatinine Ratio 11/04/2023 11/04/2022, 02/0 12/2021 DIABETES-FOOT EXAM 04/22/2024 04/22/2023 Depression Screening, Annual [...] filedocumented as of this encounter Care Teams Pay Station Attendant Relationship Specialty Start Date End Date Bozena De, [address] [place] [address] PCP - General Family Medicine 04/22/23 documented as of this encounter
[2023-11-10 12:15] LABS: Base Excess VBG -13.3 mEq/L; HCO3 VBG 14 mmol/L; Oxygen Saturation VBG < 60.0 %; PCO2 VBG 37 mmHg (38-50); PO2 VBG < 20 mmHg; pH VBG 7.19 (7.36-7.41)
--- OUTSIDE RECORDS SUMMARY | 2023-11-10 12:15 | External Medical Summary | Summary of Care ---
Author Name Unknown Organization [facility] Address [address] [place] [address] Phone [phone] Care Team Providers Care Hook Tender Name Role Phone Bozena De DO Primary Care Provider [phone] Encounter Details Date Type Department Care Team Description 06/10/2023 Orders Only Family Practice [address], [place] [address] [place] [address] Bozena De DO [address] [place] [address] Allergies Active Allergy Reactions Severity Noted Date Comments Baclofen Neuro complications (Please comment) 08/18/2022 confusion Phenytoin Sodium Extended Itching Low 01/07/2017 Fentanyl 04/24/2022 Lamotrigine 01/07/2017 Midazolam Neuro complications (Please comment) High 08/18/2022 confusion documented as of this encounter (statuses as of 06/10/2023) Medications Medication Sig Dispensed Refills Start Date [...] before bedtime. 0 Active Afrin Nasal [place] 0.05 % Nasal Solution (oxymetazoline) Administer 2 [...] goal of less than 8.0% ([facility]) Take 1 Tablet by mouth in [...] as of this encounter (statuses as of 06/10/2023) Active Problems Problem Noted Date Hypertensive kidney [...] suboptimal and may underestimate any underlying obstruction [facility] in past . Cards-saw [...] as of this encounter (statuses as of 06/10/2023) Immunizations Name Administration Dates Next Due COVID-19 mRNA, LNP-s, No Pre serve, 2-Dose Series ([employer]) 02/05/2021,01/15/2021 COVID-19, LNP-s, No Preserve , Torito-sucrose, [...] Encounters Date Type Specialty Care Team Description 06/25/2023 Office Visit Dermatology Tania Castro MD [address] [place] [address] 07/29/2023 Office Visit Family Medicine Bozena De, DO [address] [place] [address] 07/29/2023 Imaging Radiology 08/31/2023 Nurse Only [facility] [employer], Nurse Annual Wellness Visit [address] [facility] [address] [place] [address] Health Maintenance Due Date Last Done Comments [...] 09/05/2022, Additional history exists HbA1c 10/22/2023 04/22/2023, 0 01/2023, 05/20/2022, Additional history exists Albumin/Creatinine Ratio 11/04/2023 11/04/2022, 0212/2021 DIABETES-FOOT EXAM 04/22/2024 04/22/2023 Depression Screening, Annual for Pts 12 and Over 04/22/2024 04/22/2023 PTH 04/22/2024 04/22/2023 Phosphate 04/22/2024 04/22/2023 TSH 04/22/2024 04/22/2023, 07, 06/15/2020 DIABETES-EYE EXAM 06/10/2024 06/08/2023, , 12/24/2021 Lipid Panel 11/04/2027 11/04/2022, [...] Procedure Name Priority Date/Time Associated Diagnosis Comments DIABETIC EYE EXAM Routine 06/08/2023 documented in this encounter Results * DIABETIC EYE EXAM (06/08/2023) 06/08/2023 Marlo Glaser MD OTHER OUTSIDE LAB (SEE SCANNED REPORT) documented in this encounter Care Teams Hook Tender Relationship Specialty Start Date End Date Bozena De, [address] [place] [address] PCP - General Family Medicine 04/22/23 documented as of this encounter
--- OUTSIDE RECORDS SUMMARY | 2023-11-10 12:15 | External Medical Summary | Summary of Care ---
Author Name Unknown Organization [facility] Address [address] [place] [address] Phone [phone] Care Team Providers Care Director Peoplesoft Name Role Phone Bozena De DO Primary Care Provider Reason for Visit * Reason Onset Date Comments Appointment 04/22/2023 dermatology Encounter Details Date Type Department Care Team Description 04/22/2023 Telephone Family Practice [address] [facility] [place] [address] [place] [phone] Bozena De DO [address] [place] [address] Appointment (dermatology) Allergies Active Allergy Reactions Severity Noted Date Comments Baclofen Neuro complications (Please comment) 08/18/2022 confusion Phenytoin Sodium Extended Itching Low 01/07/2017 Fentanyl 04/24/2022 Lamotrigine 01/07/2017 Midazolam Neuro complications (Please comment) High 08/18/2022 confusion documented as of this encounter (statuses as of 06/29/2023) Medications Medication Sig Dispensed Refills Start Date [...] Tablet before bedtime. 0 Active Afrin Nasal [place] 0.05 % Nasal Solution (oxymetazoline) Administer 2 Sprays into nostril in the morning and 2 Sprays before bedtime. 0 Active Methocarbamol 500 MG Oral Tablet (Robamol) Take 1 Tablet by mouth 2 times a day as needed. 0 Active Omeprazole 20 MG Oral Capsule Delayed Release (PriLOSEC)Indicati ons:Chronic cough Take by mouth 1 Capsule in [...] 10/21/2022 Active Repaglinide 2 MG Oral Tablet (Prandin)Indicatio ns:Type 2 diabetes mellitus with hemoglobin A1c goal [...] Recomb Adjuvanted 50 MCG/0.5ML Intramuscular Suspension Reconstituted (Shingrix)Indicati ons:Need for vaccination for zoster Inject 0.5 mL [...] MG Oral Tablet (Ativan)Indication s:Insomnia, unspecified type take 1/2 to 1 tablet by mouth nightly if needed for anxiety or insomnia 10 Tablet 0 04/09/2023 3 Discontinu ed(Refill) Hospital, Clinic, or Other Facility Administered Medication [...] as of this encounter (statuses as of 06/29/2023) Active Problems Problem Noted Date Hypertensive kidney [...] suboptimal and may underestimate any underlying obstruction [facility] in past . Cards-saw Dr [...] as of this encounter (statuses as of 06/29/2023) Immunizations Name Administration Dates Next Due COVID-19 mRNA, LNP-s, No Pre serve, 2-Dose Series ([facility]) 02/05/2021,01/15/2021 COVID-19, LNP-s, No Preserve , Torito-sucrose, Ages 12+ ([facility]) 05/20/2022 Pneumococcal Conjugate Vacc, 13 Valent (Prevnar) [...] Miscellaneous Notes * Telephone Encounter - COLBY Hanna - 04/23/2023 9:07 AM EDT Joyce called patient on cell no answer, no voicemail. She called home # and left message to return call. * Telephone Encounter - COLBY Hanna - 04/22/2023 3:47 PM EDT Called patient, no answer and mail box not set up yet. * Telephone Encounter - COLBY Matta - 04/22/2023 2:33 PM EDT DERMATOLOGY REFERRAL OP Changing skin lesion [L98.9] Please call with date and time documented in this encounter Plan of Treatment Upcoming Encounters Date Type Specialty Care Team Description 07/02/2023 Office Visit Nephrology Mandy Rao MD [address] [place] [facility] [place] [address] 07/29/2023 Office Visit Family Medicine Bozena De, DO 293 [place] [address] 07/29/2023 Imaging Radiology 08/31/2023 Nurse Only [facility], Nurse Annual Wellness Visit [address] [place] [address] [place] [address] Health Maintenance Due Date Last Done Comments [...] filedocumented as of this encounter Care Teams Director Peoplesoft Relationship Specialty Start Date End Date Bozena De, DO [address] [place] [address] PCP - General Family Medicine 04/22/23 documented as of this encounter
--- OUTSIDE RECORDS SUMMARY | 2023-11-10 12:15 | External Medical Summary | Summary of Care ---
Author Name Unknown Organization [facility] Address [address] [place] [address] Phone [phone] Care Team Providers Care Shop Tech Name Role Phone Bozena De DO Primary Care Provider Reason for Visit * Reason Onset Date Comments Test Results Biopsy 06/30/2023 Biopsy resul ts Encounter Details Date Type Department Care Team Description 06/30/2023 Telephone Dermatology [facility] [place] [address] [place] [address] Tania Castro MD [address] [facility] [address] Test Results Biopsy (Biopsy results) Allergies Active Allergy Reactions Severity Noted Date [...] Tablet before bedtime. 0 Active Afrin Nasal [place] 0.05 % Nasal Solution (oxymetazoline) Administer 2 [...] mRNA, LNP-s, No Pre serve, 2-Dose Series ([employer]) 02/05/2021,01/15/2021 COVID-19, LNP-s, No Preserve , Torito-sucrose, [...] encounter Miscellaneous Notes * Telephone Encounter - Kasey Ochoa LPN - 07/02/2023 9:12 AM EDT LMOM for patient to call and/or send a photo. * Telephone Encounter - Tania Castro MD - 07/01/2023 4:23 PM EDT Is it possible for pt to send a photo? Or nursing visit tomorrow? Patient Phone Numbers * Telephone Encounter - Lupis Bruce LPN - 07/01/2023 1:41 PM EDT Patient calling with concerns of biopsy site L arm. Reports area red, painful and itchy. No fever or drainage. States was given no after care instructions. Patient advised to wash with soap and waterdaily and apply a thin layer of Vaseline with a clean bandage daily. Patient would like to speak with the provider to discuss wound. * Telephone Encounter - Kasey Ochoa LPN - 06/30/2023 11:14 AM EDT Please advise. * Telephone Encounter - COLBY Matta - 06/30/2023 11:02 AM EDT Would like the results of her biopsy and would like scheduled for a follow up Please contact patient documented in this encounter Plan of Treatment Upcoming Encounters Date Type Specialty Care Team Description 07/02/2023 Office Visit Nephrology Mandy Rao MD 200 [place] [address] 07/29/2023 Office Visit Family Medicine Bozena De, DO [address] [place] [address] 07/29/2023 Imaging Radiology 08/31/2023 Nurse Only [facility] [place], Nurse Annual Wellness Visit [address] [place] [address] [place] [address] Health Maintenance Due Date Last Done Comments [...] 04/22/2023 Phosphate 04/22/2024 04/22/2023 TSH 04/22/2024 04/22/2023, 05/02, 06/15/2020 [...] filedocumented as of this encounter Care Teams Shop Tech Relationship Specialty Start Date End Date [place], Bozena M, DO [address] [facility] [place] [address] PCP - General Family Medicine 04/22/23 documented as of this encounter
--- OUTSIDE RECORDS SUMMARY | 2023-11-10 12:15 | External Medical Summary ---
Author Name Unknown Address Unknown Organization K01:[facility] - [address] [place] [address] Laboratory Report Ordering Provider Test Date Status GORAN HANSONA 07/02/2023 13:49:49 Final Observation Date Value Abnormality Reference (Units ) Status Bacteria identified in Specimen by Culture 07/02/2023 13:49:49 [id number]^STAPHY LOCOCCUS AUREUS Abnormal Final Moderate Staphylococcus prabhakar us Performing Location [facility] - [address] [place] [address] Ordering Provider Test Date Status JULIANE HANSONLIA 07/02/2023 13:49:49 Final Observation Date Value Abnormality Reference (Units ) Status Clindamycin 07/02/2023 13:49:49 <=0.25 Resistant Final Erythromycin susceptibility 07/02/2023 13:49:49 >=8 Resistant Final Oxacillinsusceptibility 07/02/2023 13:49:49 <=0.25 Susceptible Final Penicillin susceptibility 07/02/2023 13:49:49 >=0.5 Resistant Final Tetracyclinesusceptibility 07/02/2023 13:49:49 <=1 Susceptible Final TMP-SMZ susceptibility 07/02/2023 13:49:49 <=10 Susceptible Final Vancomycinsusceptibility 07/02/2023 13:49:49 <=0.5 Susceptible Final Test: Culture, Wound, Superf icial, Aerobic
Specimen Source: Arm, Left
Specimen Type: Superficial Wound
Specimen Date: 07/02/2023 1:49 PM
Result Date: 07/04/2023 12:59 PM
Result Status: Final result
Abnormal: Yes
Resulting Lab: [facility]
[address]
[place] [address]

CULTURE

Moderate Staphylococcus aureus (Abnormal)

SUSCEPTIBILITY

Staphylococcus
aureus
METHOD MICROBROTH
DILUTIONS

CLINDAMYCIN <=0.25 Resistant
ERYTHROMYCIN >=8 Resistant
OXACILLIN <=0.25 Susceptible
PENICILLIN G >=0.5 Resistant
TETRACYCLINE <=1 Susceptible
TRIMETH/SULFAMETHOXAZOLE <=10 Susceptible
VANCOMYCIN <=0.5 Susceptible

[facility] Performing Location LABORATORY [facility] - [address] [facility] [address]
--- OUTSIDE RECORDS SUMMARY | 2023-11-10 12:15 | External Medical Summary | Summary of Care ---
Author Name Unknown Organization [facility] Address [address] [place] [address] Phone [phone] Care Team Providers Care Applied Exercise Physiologist Name Role Phone Bozena De DO Primary Care Provider Reason for Visit * Reason Onset Date Comments Information 06/07/2023 DM eye Encounter Details Date Type Department Care Team Description 06/07/2023 Telephone Family Practice 65 [facility] [place] [address] [place] [id number] Bozena De DO 293 [place] [address] Information (DM eye/) Allergies Active Allergy Reactions Severity Noted Date Comments Baclofen Neuro complications (Please comment) 08/18/2022 confusion Phenytoin Sodium Extended Itching Low 01/07/2017 Fentanyl 04/24/2022 Lamotrigine 01/07/2017 Midazolam Neuro complications (Please comment) High 08/18/2022 confusion documented as of this encounter (statuses as of 06/07/2023) Medications Medication Sig Dispensed Refills Start Date [...] Tablet before bedtime. 0 Active Afrin Nasal [place] 0.05 % Nasal Solution (oxymetazoline) Administer 2 [...] as of this encounter (statuses as of 06/07/2023) Active Problems Problem Noted Date Hypertensive kidney [...] as of this encounter (statuses as of 06/07/2023) Immunizations Name Administration Dates Next Due COVID-19 mRNA, LNP-s, No Pre serve, 2-Dose Series ([employer]) 02/05/2021,01/15/2021 COVID-19, LNP-s, No Preserve , [...] encounter Miscellaneous Notes * Telephone Encounter - Sarah Duncan LPN - 06/07/2023 11:32 AM EDT Patient with a positive Diabetic Retinopathy scan. Outreach action taken: Left Message Sarah Duncan LPN documented in this encounter Plan of Treatment Upcoming Encounters Date Type Specialty Care Team Description 06/10/2023 Office Visit Nephrology José Antonio Estes MD 200 [facility] [place] [address] 06/25/2023 Office Visit Dermatology Tania Castro MD 200 [facility] [place] [address] 07/29/2023 Office Visit Family Medicine Bozena De, DO 293 [place] [address] 07/29/2023 Imaging Radiology 08/31/2023 Nurse Only [employer]illary College, Nurse Annual Wellness Visit [address] [facility] [place] [address] Health Maintenance Due Date Last Done Comments [...] exists Albumin/Creatinine Ratio 11/04/2023 11/04/2022, 02/0 12/2021 DIABETES-EYE EXAM 04/22/2024 04/22/2023, 12/24/2021 DIABETES-FOOT EXAM 04/22/2024 04/22/2023 Depression Screening, Annual for Pts 12 and Over 04/22/2024 04/22/2023 PTH 04/22/2024 04/22/2023 Phosphate 04/22/2024 04/22/2023 TSH 04/22/2024 04/22/2023, 07/, 06/15/2020 Lipid Panel 11/04/2027 11/04/2022, 12/03/2021 DTaP,Tdap,and Td [...] filedocumented as of this encounter Care Teams Applied Exercise Physiologist Relationship Specialty Start Date End Date Bozena De, DO [address] [place] [address] PCP - General Family Medicine 04/22/23 documented as of this encounter
--- OUTSIDE RECORDS SUMMARY | 2023-11-10 12:15 | External Medical Summary | Summary of Care ---
Author Name Unknown Organization [facility] Address [address] [place] [address] Phone [phone] Care Team Providers Care Pierce And Shave Press Operator Name Role Phone Bozena De DO Primary Care Provider Encounter Details Date Type Department Care Team Description 06/23/2023 Telephone Family Practice [address] [place] [address] [place] [address] Bozena De DO [address] [place] [address] Allergies Active Allergy Reactions Severity Noted Date Comments Baclofen Neuro complications (Please comment) 08/18/2022 confusion Phenytoin Sodium Extended Itching Low 01/07/2017 Fentanyl 04/24/2022 Lamotrigine 01/07/2017 Midazolam Neuro complications (Please comment) High 08/18/2022 confusion documented as of this encounter (statuses as of 06/28/2023) Medications Medication Sig Dispensed Refills Start Date [...] goal of less than 8.0% ([facility]) Take 1 Tablet by mouth in the [...] as of this encounter (statuses as of 06/28/2023) Active Problems Problem Noted Date Hypertensive kidney [...] as of this encounter (statuses as of 06/28/2023) Immunizations Name Administration Dates Next Due COVID-19 mRNA, LNP-s, No Pre serve, 2-Dose Series ([facility]) 02/05/2021,01/15/2021 COVID-19, LNP-s, No Preserve , Torito-sucrose, Ages 12+ ([facility]) 05/20/2022 Pneumococcal Conjugate Vacc, 13 Valent (Prevnar) [...] Miscellaneous Notes * Telephone Encounter - Vivian Shrestha RPh - 06/28/2023 4:45 PM EDT Patient Phone Numbers Called patient again - no answer and VM not set up. Vivian Shrestha, Pharm D, BCACP Clinical Pharmacist [address] - [facility] 06/28/2023, 4:45 PM Ph. [phone] * Telephone Encounter - Maryam Brown RPh - 06/23/2023 2:15 PM EDT Contacts Type Contact Phone/Fax 06/23/2023 02:12 PM EDT Phone (Outgoing) Poppy Mars (Self) [phone] (M) No Answer/Busy - is NOT set up. Unable to leave message. 06/23/2023 02:13 PM EDT Phone (Outgoing) Poppy Mars (Self) [phone] (H) Left Message Left message on home number. Gave [address] [place] clinic number to have patient return call. Maryam Brown Pharm D, [facility] Clinical Pharmacist [place] [address] [place] 06/23/2023, 2:15 PM * Telephone Encounter - Autumn Fofana LPN - 06/23/2023 1:33 PM EDT Will forward to pharmacy to answer patient questions. Thank you * Telephone Encounter - Kriss Saleh LPN - 06/23/2023 10:33 AM EDT Called patient regarding son. Patient stated she was recently prescribed Jardiance for her Diabetes. She states she read the package insert and she is scared to take the jardiance because "it could mess with her life". I explained that all medications have different side effects that are potential.The side effects are the same for every person. She said she was very concerned, wasn't sure why the medication was changed because she was doing well with the meds she was on before. Please reach out to patient and discuss medication. She has several questions and stressed she was afraid to to the jardiance. documented in this encounter Plan of Treatment Upcoming Encounters Date Type Specialty Care Team Description 07/02/2023 [facility] [address] 07/29/2023 Office Visit Family [facility] [address] 07/29/2023 Imaging Radiology 08/31/2023 Nurse Only [employer], Nurse Annual Wellness Visit [address] [place] [address] Health Maintenance Due Date Last Done Comments [...] 09/05/2023 09/05/2022, 0803/2020, 02/25/2001 GFR 10/22/2023 04/22/2023, 01/0 01/2023, 09/05/2022, [...] filedocumented as of this encounter Care Teams Pierce And Shave Press Operator Relationship Specialty Start Date End Date Bozena De, DO [address] [place] [address] PCP - General Family Medicine 04/22/23 documented as of this encounter
--- OUTSIDE RECORDS SUMMARY | 2023-11-10 12:15 | External Medical Summary | Summary of Care ---
Author Name Unknown Organization [facility] [address] [facility] [address] Phone [phone] Care Team Providers Care Universal Grinder Tool Name Role Phone Bozena De DO Primary Care Provider Reason for Visit * Reason Onset Date Comments Medical Questions 07/01/2023 Encounter Details Date Type Department Care Team Description [facility] [address] [place] [address] Tania Castro MD [address] [facility] [address] Medical Questions Allergies Active Allergy Reactions Severity Noted Date Comments Baclofen Neuro complications (Please comment) 08/18/2022 confusion Phenytoin Sodium Extended Itching Low 01/07/2017 Fentanyl 04/24/2022 Lamotrigine 01/07/2017 Midazolam Neuro complications (Please comment) High 08/18/2022 confusion documented as of this encounter (statuses as of 07/01/2023) Medications Medication Sig Dispensed Refills Start Date [...] Tablet before bedtime. 0 Active Afrin Nasal [place] 0.05 % Nasal Solution (oxymetazoline) Administer 2 [...] hemoglobin A1c goal of less than 8.0% ([facility]) Take 1 Tablet by mouth in [...] as of this encounter (statuses as of 07/01/2023) Active Problems Problem Noted Date Hypertensive kidney [...] any underlying obstruction [facility] in past . Cards-saw Dr iLve in past. 08/21 considering sinus surg. Hx breast CA '13? Localization-related symptom atic epilepsy and epileptic syndromes with complex partial seizures, not intractable, without status epilepticus 12/03/2021 Dyslipidemia, goal LDL below 100 017 Hypothyroidism 01/09/2017 Type 2 diabetes mellitus with hemoglobin A1c goal of less than 8.0% 01/07/2017 HTN, goal below 140/90 01/07/2017 documented as of this encounter (statuses as of 07/01/2023) Immunizations Name Administration Dates Next Due COVID-19 mRNA, LNP-s, No Pre serve, 2-Dose Series ([employer]) 02/05/2021,01/15/2021 COVID-19, LNP-s, No Preserve , Torito-sucrose, [...] Visit Nephrology Mandy Rao MD [address] [facility], [place] [address] 07/29/2023 Office Visit Family Medicine Bozena De, DO 293 [facility], [place] [address] 07/29/2023 Imaging Radiology 08/31/2023 Nurse Only [employer], Nurse Annual Wellness Visit [address] [facility] [address] [facility] [address] Health Maintenance Due Date Last Done Comments [...] filedocumented as of this encounter Care Teams Universal Grinder Tool Relationship Specialty Start Date End Date Bozena De, [address] [place] [address] PCP - General Family Medicine 04/22/23 documented as of this encounter
--- OUTSIDE RECORDS SUMMARY | 2023-11-10 12:15 | External Medical Summary | Summary of Care ---
Author Name Unknown Organization [facility] Address [address] [place] [address] Phone [phone] Care Team Providers Care Flat Hammerer Name Role Phone Bozena De DO Primary Care Provider Reason for Visit * Reason Onset Date Comments Test Results Biopsy 06/30/2023 Biopsy resul ts Encounter Details Date Type Department Care Team Description 06/30/2023 Telephone Dermatology [facility] [place] [address] [place] [address] Tania Castro MD [address] [facility] [address] Test Results Biopsy (Biopsy results) Allergies Active [...] Tablet before bedtime. 0 Active Afrin Nasal [place] 0.05 % Nasal Solution (oxymetazoline) Administer [...] mRNA, LNP-s, No Pre serve, 2-Dose Series ([employer]) 02/05/2021,01/15/2021 COVID-19, LNP-s, No Preserve , Torito-sucrose, [...] * Telephone Encounter - COLBY Hanna - 07/02/2023 10:46 AM EDT Added patient to schedule. * Telephone Encounter - Kasey Ochoa LPN - 07/02/2023 10:33 AM EDT Please put patient on schedule at 1:00 pm today for nurse visit. Wound check. * Telephone Encounter - Kasey Ochoa LPN [...] Date Type Specialty Care Team Description 07/02/2023 Nurse Only Dermatology Sp, Nurse Dermatology [address] [place] [address] 07/02/2023 Office Visit Nephrology Mandy Rao MD [address] [place] [address] 07/29/2023 Office Visit Family Medicine Bozena De, DO 293 [facility] [place] [address] 07/29/2023 Imaging Radiology 08/31/2023 Nurse Only [employer], Nurse Annual Wellness Visit [address] [place] [address] Health Maintenance Due Date Last Done Comments [...] filedocumented as of this encounter Care Teams Flat Hammerer Relationship Specialty Start Date End Date Bozena De, DO [address] [place] [address] PCP - General Family Medicine 04/22/23 documented as of this encounter
--- OUTSIDE RECORDS SUMMARY | 2023-11-10 12:15 | External Medical Summary | Summary of Care ---
Author Name Unknown Organization [facility] [address] [facility] [address] Phone [phone] Care Team Providers Care Assembler Cards And Announcements Name Role Phone Bozena De DO Primary Care Provider Reason for Visit * Reason Onset Date Comments Medical Questions 07/01/2023 Encounter Details Date Type Department Care Team Description 07/01/2023 [facility] [address] [place] [address] Tania Castro MD [address] [facility] [address] Medical Questions Allergies Active Allergy Reactions Severity [...] Tablet before bedtime. 0 Active Afrin Nasal [place] 0.05 % Nasal Solution (oxymetazoline) Administer 2 [...] hemoglobin A1c goal of less than 8.0% ([facility]) Take 1 Tablet by [...] mRNA, LNP-s, No Pre serve, 2-Dose Series ([employer]) 02/05/2021,01/15/2021 COVID-19, LNP-s, No Preserve , Torito-sucrose, [...] Visit Nephrology Mandy Rao MD [address] [facility], [place] [address] 07/29/2023 Office Visit Family Medicine Bozena De, DO 293 [facility], [place] [address] 07/29/2023 Imaging Radiology 08/31/2023 Nurse Only [employer], Nurse Annual Wellness Visit [address] [facility] [address] Health Maintenance Due Date Last Done Comments [...] filedocumented as of this encounter Care Teams Assembler Cards And Announcements Relationship Specialty Start Date End Date Bozena De, 293 [place] [address] PCP - General Family Medicine 04/22/23 documented as of this encounter
--- OUTSIDE RECORDS SUMMARY | 2023-11-10 12:15 | External Medical Summary | Summary of Care ---
Author Name Unknown Organization [facility] Address [address] [place] [address] Phone [phone] Care Team Providers Care Solid Waste Management Engineer Name Role Phone Bozena De DO Primary Care Provider Reason for Visit * Reason Onset Date Comments Test Results Biopsy 06/30/2023 Biopsy resul ts Encounter Details Date Type Department Care Team Description 06/30/2023 Telephone Dermatology [facility] [place] [address] [place] [address] Tania Castro MD [address] [facility] [address] Test Results Biopsy (Biopsy results) Allergies Active [...] Tablet before bedtime. 0 Active Afrin Nasal [place] 0.05 % Nasal Solution (oxymetazoline) Administer 2 [...] and may underestimate any underlying obstruction [facility] in past . Cards-saw Dr Live [...] mRNA, LNP-s, No Pre serve, 2-Dose Series ([employer]) 02/05/2021,01/15/2021 COVID-19, LNP-s, No Preserve , Torito-sucrose, [...] Office Visit Nephrology Mandy Rao MD 200 [facility], [place] [address] 07/29/2023 Office Visit Family Medicine Bozena De, [facility] [address] 07/29/2023 Imaging Radiology 08/31/2023 Nurse Only [facility], Nurse Annual Wellness Visit [address] [facility] 293 [facility] [place] [address] Health Maintenance Due Date Last Done Comments [...] 09/09/2016, Additional history exists Hgb 09/05/2023 09/05/2022, 08/03/2020, 02/25/2001 GFR 10/22/2023 04/22/2023, 01/0 01/2023, 09/05/2022, [...] filedocumented as of this encounter Care Teams Solid Waste Management Engineer Relationship Specialty Start Date End Date Bozena De, DO [address] [place] [address] PCP - General Family Medicine 04/22/23 documented as of this encounter
--- OUTSIDE RECORDS SUMMARY | 2023-11-10 12:15 | External Medical Summary | Summary of Care ---
Author Name Unknown Organization [facility] Address [address] [place] [address] Phone [phone] Care Team Providers Care Quality Control Supervisor Name Role Phone Bozena De DO Primary Care Provider Encounter Details Date Type Department Care Team Description 06/23/2023 Telephone Family Practice [address] [place] [address] [place] [address] Bozena De DO [address] [place] [address] Allergies Active Allergy Reactions Severity Noted Date Comments Baclofen Neuro complications (Please comment) 08/18/2022 confusion Phenytoin Sodium Extended Itching Low 01/07/2017 Fentanyl 04/24/2022 Lamotrigine 01/07/2017 Midazolam Neuro complications (Please comment) High 08/18/2022 confusion documented as of this encounter (statuses as of 06/24/2023) Medications Medication Sig Dispensed Refills Start Date [...] Tablet before bedtime. 0 Active Afrin Nasal [place] 0.05 % Nasal Solution (oxymetazoline) Administer 2 [...] of less than 8.0% ([facility]) Take 1 Tablet by mouth in the [...] as of this encounter (statuses as of 06/24/2023) Active Problems Problem Noted Date Hypertensive kidney [...] underestimate any underlying obstruction [facility] in past . Cards-saw Dr [...] as of this encounter (statuses as of 06/24/2023) Immunizations Name Administration Dates Next Due COVID-19 mRNA, LNP-s, No Pre serve, 2-Dose Series ([facility] 02/05/2021,01/15/2021 COVID-19, LNP-s, No Preserve , Torito-sucrose, Ages 12+ ([facility] 05/20/2022 Pneumococcal Conjugate Vacc, 13 Valent (Prevnar) [...] encounter Miscellaneous Notes * Telephone Encounter - Maryam Brown RPh - 06/23/2023 2:15 PM EDT Contacts Type Contact Phone/Fax 06/23/2023 02:12 PM EDT Phone (Outgoing) Poppy Mars (Self) [phone] (M) No Answer/Busy - is NOT set up. Unable to leave message. 06/23/2023 02:13 PM EDT Phone (Outgoing) Poppy Mars (Self) [phone] (H) Left Message Left message on home number. Gave [facility] [place] clinic number to have patient return call. Maryam Brown, Pharm D, [facility] Clinical Pharmacist [place] 06/23/2023, 2:15 PM * Telephone Encounter - [...] Office Visit Dermatology Tania Castro MD [address] [place] [address] 07/29/2023 Office Visit Family Medicine Bozena De, DO [address] [place] [address] 07/29/2023 Imaging Radiology 08/31/[address] [facility] Nurse Annual Wellness Visit [address] [place] [address] Health Maintenance Due Date Last Done Comments [...] 09/05/2023 09/05/2022, 06/01, 02/25/2001 GFR 10/22/2023 04/22/2023, 010 01/2023, 09/05/2022, [...] filedocumented as of this encounter Care Teams Quality Control Supervisor Relationship Specialty Start Date End Date Bozena De DO [address] [facility] [place] [address] PCP - General Family Medicine 04/22/23 documented as of this encounter
--- OUTSIDE RECORDS SUMMARY | 2023-11-10 12:15 | External Medical Summary | Summary of Care ---
Author Name Unknown Organization [facility] Address [address] [place] [address] Phone [phone] Care Team Providers Care Drapery Estimator Name Role Phone Bozena De DO Primary Care Provider Reason for Visit * Reason Onset Date Comments Appointment 04/27/2023 Nephrology Encounter Details Date Type Department Care Team Description 04/27/2023 Telephone Family Practice 65 [facility] [place] [address] [place] [id number] Bozena De DO [address] [place] [address] Appointment (Nephrology) Allergies Active Allergy Reactions Severity Noted Date [...] Tablet before bedtime. 0 Active Afrin Nasal [place] 0.05 % Nasal Solution (oxymetazoline) Administer 2 [...] mRNA, LNP-s, No Pre serve, 2-Dose Series ([employer]) 02/05/2021,01/15/2021 COVID-19, LNP-s, No Preserve , Torito-sucrose, [...] Miscellaneous Notes * Telephone Encounter - COLBY Matta - 04/27/2023 2:22 PM EDT Needs an appt for nephrology NEPHROLOGY REFERRAL OP Kidney disease, chronic, stage IV (GFR 15-29 ml/min) ([facility]) [N18.4] - Primary Please call with date and time documented in this encounter Plan of Treatment Upcoming Encounters Date Type Specialty Care Team Description 07/02/2023 Office Visit Nephrology Mandy Rao MD 200 [place] [address] 07/29/2023 Office Visit Family Medicine Bozena De DO [address] [place], [place] [address] 07/29/2023 Imaging Radiology 08/31/2023 Nurse Only Ancillary College, Nurse Annual Wellness Visit [address] [place] [facility] [place] [address] Health Maintenance Due Date Last Done Comments [...] 09/09/2016, Additional history exists Hgb 09/05/2023 09/05/2022, 08/1 03/2020, 02/25/2001 GFR 10/22/2023 04/22/2023, 01/0 01/2023, 09/05/2022, Additional history exists HbA1c 10/22/2023 04/22/2023, 01/0 01/2023, 05/20/2022, Additional history exists Albumin/Creatinine Ratio 11/04/2023 11/04/2022, 02/12/2021 DIABETES-FOOT EXAM 04/22/2024 04/22/2023 Depression Screening, Annual [...] filedocumented as of this encounter Care Teams Drapery Estimator Relationship Specialty Start Date End Date Bozena De, DO 293 [place] [address] PCP - General Family Medicine 04/22/23 documented as of this encounter
--- OUTSIDE RECORDS SUMMARY | 2023-11-10 12:16 | External Medical Summary ---
Author Name Unknown Address Unknown Organization K01:[facility] [place] [address] [place] [address] Laboratory Report Ordering Provider Test Date Status QUINN YAGARRYTREVOR 06/04/2023 16:52:12 Final Observation Date Value Abnormality Reference (Units) Status Bacteria identified in Unspecified specimen by Culture 06/04/2023 16:52:12 No significant growth Final Test: Culture, Urine, Quanti tative
Specimen Source: Urine, Clean Catch
Specimen Type: Urine
Specimen Date: 06/04/2023 4:52 PM
Result Date: 06/05/2023 3:03 PM
Result Status: Final result
Resulting Lab: [facility]
[address]
[place] [address]

CULTURE

No significant growth

null Performing Location [facility] [place] - [address] [facility] [address]
--- OUTSIDE RECORDS SUMMARY | 2023-11-10 12:16 | External Medical Summary | Summary of Care ---
Author Name Unknown Organization [facility] Address [address] [place] [address] Phone [phone] Care Team Providers Care Top Dyeing Machine Loader Name Role Phone Bozena De DO Primary Care Provider Reason for Visit * Reason Onset Date Comments Advice 06/03/2023 Encounter Details Date Type Department Care Team Description 06/03/2023 Telephone Family Practice 65 [facility], [place] [address] [place] [phone] Bozena De DO [address] [place], [place] [phone] Advice Allergies Active Allergy Reactions Severity Noted Date Comments Baclofen Neuro complications (Please comment) 08/18/2022 confusion Phenytoin Sodium Extended Itching Low 01/07/2017 Fentanyl 04/24/2022 Lamotrigine 01/07/2017 Midazolam Neuro complications (Please comment) High 08/18/2022 confusion documented as of this encounter (statuses as of 06/03/2023) Medications Medication Sig Dispensed Refills Start Date [...] Tablet before bedtime. 0 Active Afrin Nasal [place] 0.05 % Nasal Solution (oxymetazoline) Administer 2 [...] for sleep. 15 Tablet 0 05/28/2023 Active Hospital, Clinic, or Other Facility Administered [...] as of this encounter (statuses as of 06/03/2023) Active Problems Problem Noted Date Hypertensive kidney [...] and may underestimate any underlying obstruction [facility] in past . Cards-saw [...] as of this encounter (statuses as of 06/03/2023) Immunizations Name Administration Dates Next Due COVID-19 mRNA, LNP-s, No Pre serve, 2-Dose Series ([employer]) 02/05/2021,01/15/2021 COVID-19, LNP-s, No Preserve , Torito-sucrose, [...] Telephone Encounter - Bozena De DO - 06/03/2023 2:31 PM EDT 1. Would advise NV for urinary symptoms and urine collection prior to starting Jardiance. 2. Her potassium is generally very normal. With her renal function, I would not recommend any additional potassium as this could be dangerous if it went too high. * Telephone Encounter - Vivian Shrestha [facility] - 06/03/2023 10:21 AM EDT Also complaining of worsening incontinence in evenings over last 2 weeks. Maybe burning once or twice but not regularly. No odor. Plan is to start Jardiance for her diabetes, but wanted to verify if you think we should check a urine first to make sure no current infection? Also asked about the potassium - pt said she took the 99mg dose periodically when the cramping got worse and then stops it when cramping stops. Had been prescribed by Dr. Larson. Advised that we need stas careful with her kidney function as well. Potassium Results: Lab Results Component Value Date/Time POTASSIUM - [facility] 4.1 04/22/2023 01:04 PM POTASSIUM - [facility] 4.2 11/04/2022 01:06 PM POTASSIUM - [facility] 3.9 09/05/2022 12:07 PM POTASSIUM - [facility] 4.6 10/19/2001 10:15 AM POTASSIUM - [facility] 3.9 02/25/2001 10:02 AM P[facility] 3.5 06/15/2020 12:00 AM * Telephone Encounter - COLBY Sauceda - 06/03/2023 10:06 AM EDT Pt asking if you would be willing to prescribe her potassium. She used to take it as needed for feet and hand cramping. States DR Larson prescribed for her in past Pt asking this to be ordered thru the pharmacy as Dr Larson advised her it would be more specific thanusing OTC. If agreeable, please send to Heriberto caputo Maryan Keenan [phone] Please contact pt with any questions or concerns. documented in this encounter Plan of Treatment Upcoming Encounters Date Type Specialty Care Team Description 06/04/2023 Telemedicine [facility], Pharmacist 65 [facility] 293 [place] [address] 06/10/2023 Office Visit Nephrology José Antonio Estes MD [address] [facility] [place] [address] 06/25/2023 Office Visit Dermatology Tania Castro MD [address] [facility] [place] [address] 07/29/2023 Office Visit [facility] Medicine [facility] [address] 07/29/2023 Imaging Radiology 08/31/2023 Nurse Only [employer], Nurse Annual Wellness Visit [address] [place] [facility], [place] [address] Health Maintenance Due Date Last Done Comments [...] filedocumented as of this encounter Care Teams Top Dyeing Machine Loader Relationship Specialty Start Date End Date Bozena De, DO [address] [place] [address] PCP - General Family Medicine 04/22/23 documented as of this encounter
--- OUTSIDE RECORDS SUMMARY | 2023-11-10 12:16 | External Medical Summary | Summary of Care ---
Author Name Unknown Organization [facility] Address [address] [place] [address] Phone [phone] Care Team Providers Care Autocad Draftsman Name Role Phone Bozena De DO Primary Care Provider Reason for Visit * Reason Onset Date Comments Advice 06/03/2023 Encounter Details Date Type Department Care Team Description 06/03/2023 Telephone Family Practice 65 [facility] [place] [address] [place] [phone] Bozena De DO [address] [place], [place] [phone] Advice Allergies Active Allergy Reactions Severity Noted [...] Tablet before bedtime. 0 Active Afrin Nasal [place] 0.05 % Nasal Solution (oxymetazoline) Administer 2 [...] mRNA, LNP-s, No Pre serve, 2-Dose Series ([employer]) 02/05/2021,01/15/2021 COVID-19, LNP-s, No Preserve , Torito-sucrose, [...] encounter Miscellaneous Notes * Addendum Note - Mavis Fofana LPN - 06/03/2023 4:20 PM EDTAddended by: MAVIS FOFANA on: 06/03/2023 04:20 PM Modules accepted: Orders * Telephone Encounter - Vivian Shrestha RPh - 06/03/2023 4:05 PM EDT Communicated both to patient. She will come tomorrow for urine ahead of starting Jardiance. Vivian Shrestha, Pharm D, BCACP Clinical Pharmacist [address] [facility] - [facility] 06/03/2023, 4:05 PM Ph. [phone] * Telephone Encounter - Bozena De DO - 06/03/2023 2:31 PM EDT 1. Would advise NV for urinary symptoms and urine collection prior to starting Jardiance. 2. Her potassium is generally very normal. With her renal function, I would not recommend any additional potassium as this could be dangerous if it went too high. * Telephone Encounter - Vivian Shrestha [facility] - 06/03/2023 10:21 AM EDT Also [...] OTC. If agreeable, please send to Heriberto Stephens on Maryan Belfry [phone] Please contact pt with any questions or concerns. documented in this encounter Plan of Treatment Upcoming Encounters Date Type Specialty Care Team Description 06/04/2023 Telemedicine [facility], Pharmacist 65 [facility] 293 [place] [address] 06/10/2023 Office Visit Nephrology José Antonio Estes MD [address] [place] [address] 06/25/2023 Office Visit Dermatology Tania Castro MD 200 [facility] [place] [address] 07/29/2023 Office Visit Family Medicine Bozena De DO 293 [facility] [place] [address] 07/29/2023 Imaging Radiology 08/31/2023 Nurse Only [employer]illary [employer], Nurse Annual Wellness Visit [address] [facility] 293 [place] [address] Scheduled Orders Name Type Priority Associated Diagnoses Orde r Schedule URINALYSIS, POINT OF CARE (ENTER/EDIT) Point of Care Testing Routine Dysuria Ordered: 06/03/2023 CULTURE, URINE, QUANTITATIVE Lab Routine Dysuria Expected: 06/03/2023, Expires: 06/03/2024 Health Maintenance Due Date Last Done Comments [...] 09/05/2023 09/05/2022, 0803/2020, 02/25/2001 GFR 10/22/2023 04/22/2023, 0 01/2023, 09/05/2022, Additional history exists HbA1c 10/22/2023 04/22/2023, 0 01/2023, 05/20/2022, Additional history exists Albumin/Creatinine Ratio 11/04/2023 11/04/2022, 0212/2021 DIABETES-EYE EXAM 04/22/2024 04/22/2023, 12/24/2021 DIABETES-FOOT EXAM 04/22/2024 04/22/2023 Depression Screening, Annual for Pts 12 and Over 04/22/2024 04/22/2023 PTH 04/22/2024 04/22/2023 Phosphate 04/22/2024 04/22/2023 TSH 04/22/2024 04/22/2023, 05/02, 06/15/2020 Lipid Panel 11/04/2027 11/04/2022, 12/03/2021 DTaP,Tdap,and [...] as of this encounter Visit Diagnoses Diagnosis Dysuria- Primary documented in this encounter Care Teams Autocad Draftsman Relationship Specialty Start Date End Date Bozena De DO 293 [place] [address] PCP - General Family Medicine 04/22/23 documented as of this encounter
--- OUTSIDE RECORDS SUMMARY | 2023-11-10 12:16 | External Medical Summary | Summary of Care ---
Author Name Unknown Organization [facility] Address [address] [place] [address] Phone [phone] Care Team Providers Care Financial Investment Adviser Name Role Phone Bozena De DO Primary Care Provider Reason for Visit * Reason Onset Date Comments Advice 06/03/2023 Encounter Details Date Type Department Care Team Description 06/03/2023 Telephone Family Practice 65 [facility] [place] [address] [place] [phone] Bozena De DO [address] [place], [place] [phone] Advice Allergies Active Allergy Reactions Severity Noted [...] mRNA, LNP-s, No Pre serve, 2-Dose Series ([employer]) 02/05/2021,01/15/2021 COVID-19, LNP-s, No Preserve , Torito-sucrose, [...] [facility] 06/03/2023, 4:05 PM Ph. [phone] * Telephone Encounter - Bozena De DO - 06/03/2023 2:31 PM EDT 1. Would advise NV for urinary symptoms and urine collection prior to starting Jardiance. 2. Her potassium is generally very normal. With her renal function, I would not recommend any additional potassium as this could be dangerous if it went too high. * Telephone Encounter - Vivian Shrestha RPh - 06/03/2023 10:21 AM EDT Also complaining [...] OTC. If agreeable, please send to Heriberto Keenan [phone] Please contact pt with any questions or concerns. documented in this encounter Plan of Treatment Upcoming Encounters Date Type Specialty Care Team Description 06/04/2023 Telemedicine [facility], Pharmacist [address] [place] [address] 06/10/2023 Office Visit Nephrology José Antonio Estes MD 200 [place] [address] 06/25/2023 Office Visit Dermatology Tania Castro MD 200 [place] [address] 07/29/2023 Office Visit Family Medicine Bozena De 293 [place] [address] 07/29/2023 Imaging Radiology 08/31/2023 Nurse Only Ancillary [place], Nurse Annual Wellness Visit [address] [facility] 293 [place] [address] Health Maintenance Due Date Last Done Comments [...] filedocumented as of this encounter Care Teams Financial Investment Adviser Relationship Specialty Start Date End Date Bozena De, DO [address] [place] [address] PCP - General Family Medicine 04/22/23 documented as of this encounter
--- OUTSIDE RECORDS SUMMARY | 2023-11-10 12:16 | External Medical Summary | Summary of Care ---
Author Name Unknown Organization [facility] Address [address] [place] [address] Phone [phone] Care Team Providers Care Manager Software Name Role Phone Bozena De DO Primary Care Provider Reason for Visit * Reason Onset Date Comments Referral 05/05/202305/06, 05/13 Physic al Therapy Encounter Details Date Type Department Care Team Description 05/05/2023 Telephone Family Practice 65 [facility] [place] [address] [place] [phone] Bozena De [address] [place] [address] Referral (05/06, 05/13 Physical Therapy) Allergies Active Allergy Reactions Severity Noted Date Comments Baclofen Neuro complications (Please comment) 08/18/2022 confusion Phenytoin Sodium Extended Itching Low 01/07/2017 Fentanyl 04/24/2022 Lamotrigine 01/07/2017 Midazolam Neuro complications (Please comment) High 08/18/2022 confusion documented as of this encounter (statuses as of 05/17/2023) Medications Medication Sig Dispensed Refills Start Date [...] Tablet before bedtime. 0 Active Afrin Nasal [place] 0.05 % Nasal Solution (oxymetazoline) Administer 2 [...] 1 Puff Inhalation HS, Reported on 04/22/2023 LORazepam 1 MG Oral Tablet (Ativan)Indications :Insomnia, unspecified type take 1/2 to 1 tablet by mouth nightly if needed for anxiety or insomnia 10 Tablet 0 04/09/2023 Active Calcium Carbonate Antacid 500 MG Oral [...] as of this encounter (statuses as of 05/17/2023) Active Problems Problem Noted Date Hypertensive kidney [...] and may underestimate any underlying obstruction [facility] in past . Cards-saw Dr Live [...] as of this encounter (statuses as of 05/17/2023) Immunizations Name Administration Dates Next Due COVID-19 mRNA, LNP-s, No Pre serve, 2-Dose Series ([employer]) 02/05/2021,01/15/2021 COVID-19, LNP-s, No Preserve , Torito-sucrose, Ages 12+ ([employer]) 05/20/2022 Pneumococcal Conjugate Vacc, 13 Valent (Prevnar) [...] Telephone Encounter - Autumn Fofana LPN - 05/17/2023 4:37 PM EDT Called, not able to leave a message. Sent my [employer] message. Letter has been sent Thank you * Telephone Encounter - Autumn Fofana LPN - 05/13/2023 4:28 PM EDT [facility] called, states they called her 4 times. Went to her home she was not there. They then tried to reschedule and has not been able to reach her. She then requested [facility]. Called patient tried to leave a message "not accepting calls right now" Who would patient like to use for pt, [facility] said they are willing to help. Thank you * Telephone Encounter - Autumn Fofana LPN - 05/13/2023 3:39 PM EDT Left message as below again. Thank you * Telephone Encounter - Autumn Fofana LPN - 05/10/2023 4:08 PM EDT Called [facility] at [phone] left message for return call. See Dr De's message. Thank you * Telephone Encounter - Autumn Fofana LPN - 05/06/2023 12:31 PM EDT Three encounters for this patient. See all three please. Called, not able to reach patient. Thank you * Telephone Encounter - Bozena De DO - 05/06/2023 10:13 AM EDT 1. [facility] is home health. They do not have a stand alone PT. 2. Please call [facility] and see what happened. * Telephone Encounter - COLBY Matta - 05/05/2023 5:38 PM EDT Patient said [facility] didn't come to her house on the scheduled day Wants to use [facility] because they also come into her home Will fax once placed documented in this encounter Plan of Treatment Upcoming Encounters Date Type Specialty Care Team Description 06/04/2023 Telemedicine [facility], [facility] 65 [facility] [address] 07/29/2023 Office Visit [facility] Laboy [facility] [address] 07/29/2023 Imaging Radiology 08/31/2023 Nurse Only [employer]illary [employer], Nurse Annual Wellness Visit [address] [facility] [address] [facility], [place] [address] Health Maintenance Due Date Last Done Comments [...] 04/22/2023 TSH 04/22/2024 04/22/2023, 07/2 , 06/15/2020 Lipid Panel 11/04/2027 11/04/2022, 12/03/2021 DTaP,Tdap,and [...] as of this encounter Visit Diagnoses Diagnosis Lumbar radiculopathy- Primary Thoracic or lumbosacral neuritis or radiculitis, unspecified Inflammation of sacroiliac joint (HCC) Sacroiliitis, not elsewhere classified documented in this encounter Care Teams Manager Software Relationship Specialty Start Date End Date Bozena De, DO [address] [place] [address] PCP - General Family Medicine 04/22/23 documented as of this encounter
--- OUTSIDE RECORDS SUMMARY | 2023-11-10 12:16 | External Medical Summary | Summary of Care ---
Author Name Unknown Organization [facility] Address [address] [place] [address] Phone [phone] Care Team Providers Care Rn Acls Name Role Phone Bozena De DO Primary Care Provider [phone] Reason for Referral * Evaluate & Treat - Unlimited Visits (Within 10 days (routine)) - Authorized Specialty Diagnoses / Procedures Referred By Steph villatoro Referred To Contact Nephrology Diagnoses Kidney disease, chronic, stage IV (GFR 15-29 ml/min) ([facility] Bozena De DO [address] [place] [address] Referral ID Status Reason Start Date Expiration Date Visits Requested Visits Authorized [id number] Authorized Specialty Services Required 05/28/2023 999 999 Question Answer Referral Priority Within 10 days (routine) What condition is this patient being seen for? Chronic kidney disease Reason for Visit * Reason Onset Date Comments Appointment 05/05/2023 Nephrology Encounter Details Date Type Department Care Team Description 05/05/2023 Telephone Family Practice 65 [facility] [place] [address] [place] [address] Bozena De DO [address] [place] [address] Appointment (Nephrology) Allergies Active Allergy [...] Tablet before bedtime. 0 Active Afrin Nasal [place] 0.05 % Nasal Solution (oxymetazoline) Administer 2 [...] suboptimal and may underestimate any underlying obstruction [facility] in past . Cards-saw [...] Telephone Encounter - COLBY Sauceda - 06/03/2023 10:15 AM EDT Pt scheduled and aware. * Telephone Encounter - COLBY Matta - 05/28/2023 2:38 PM EDT Please call with date and time * Telephone Encounter - Bozena De DO - 05/28/2023 1:29 PM EDT Referral signed. * Telephone Encounter - Roz Perez LPN - 05/26/2023 2:53 PM EDT Pended new referral. * Telephone Encounter - COLBY Matta - 05/26/2023 1:13 PM EDT Needs a new order placed for nephrology * Telephone Encounter - COLBY Matta - 05/05/2023 5:28 PM EDT Need an appt with nephrology Please call with date and time NEPHROLOGY REFERRAL OP Kidney disease, chronic, stage IV (GFR 15-29 ml/min) ([facility]) [N18.4] - Primary documented in this encounter Plan of Treatment Upcoming Encounters Date Type Specialty Care Team Description 06/04/2023 Telemedicine [facility] Medicine [place], Pharmacist 65 [facility] [address] [place], [place] [address] 06/10/2023 Office Visit [facility]phrology [facility] [address] 06/25/2023 Office Visit Dermatology Tania Castro MD 200 [facility] [place] [address] 07/29/2023 Office Visit Family Medicine Bozena De DO 293 [place] [address] 07/29/2023 Imaging Radiology 08/31/2023 Nurse Only Ancillary [place], Nurse Annual Wellness Visit [address] [place] [address] Scheduled Referrals Name Type Priority Associated Diagnoses Orde r Schedule NEPHROLOGY REFERRAL OP Referral Within 10 days (routine) Kidney disease, chronic, stage IV (GFR 15-29 ml/min) (HCC) Ordered: 05/28/2023 Health Maintenance Due Date Last Done Comments [...] (severe) documented in this encounter Care Teams Rn Acls Relationship Specialty Start Date End Date Bozena eD, DO [address] [facility] [place] [address] PCP - General Family Medicine 04/22/23 documented as of this encounter
--- OUTSIDE RECORDS SUMMARY | 2023-11-10 12:16 | External Medical Summary | Summary of Care ---
Author Name Unknown Organization [facility] Address [address] [place] [address] Phone [phone] Care Team Providers Care Farm Reporter Name Role Phone GailBozena haas Primary Care Provider [phone] Reason for Visit * Reason Comments Dosage Adjustment Via Phone (anticoag Cl inic) Diabetes Follow-Up Encounter Details Date Type Department Care Team Description 06/04/2023 Telemedicine Family Practice 65 [facility] 293 [place] [phone] [place], Pharmacist [address] [address] Type 2 diabetes mellitus with hemoglobin A1c goal of less than 8.0% ([facility])* Allergies Active Allergy Reactions Severity Noted Date Comments Baclofen Neuro complications (Please comment) 08/18/2022 confusion Phenytoin Sodium Extended Itching Low 01/07/2017 Fentanyl 04/24/2022 Lamotrigine 01/07/2017 Midazolam Neuro complications (Please comment) High 08/18/2022 confusion documented as of this encounter (statuses as of 06/04/2023) Medications Medication Sig Dispensed Refills Start Date [...] Tablet before bedtime. 0 Active Afrin Nasal [place] 0.05 % Nasal Solution (oxymetazoline) Administer 2 [...] as of this encounter (statuses as of 06/04/2023) Active Problems Problem Noted Date Hypertensive kidney [...] as of this encounter (statuses as of 06/04/2023) Immunizations Name Administration Dates Next Due COVID-19 [...] of this encounter Progress Notes * Vivian Shrestha, [facility] - 06/03/2023 10:12 AM EDT Diabetes telephone follow - up 06/03/2023 Patient Phone Numbers - Reason for contacting patient: Following up on recent sugars and to again discuss starting SGLT2.Patient reports she does want to move forward with trying Jardiance. However, she is also reportingincreased urination for last 2 weeks with occasional burning. - Current diabetic medications: Replaglinide 2mg - two tablets with meals and snacks up to 4 times daily (usually takes all 8 tabs daily) Therapy considerations: Renal Functions and history of DKA - pt thinks 2017 and was very dehydratedat the time due to GI infection Medication: previously on an injectable but asked to stop because doesn't want to use new medications. Metformin: EDENILSON diarrhea. Was on glipizide and insulin in past when had to be on prednisone. Creatinine Results: Lab Results Component Value Date/Time CREATININE - [facility] 1.8 (H) 04/22/2023 01:04 PM CREATININE - [facility] 1.8 (H) 11/04/2022 01:06 PM CREATININE - [facility] 1.6 (H) 09/05/2022 12:07 PM CREATININE, RANDOM URINE - [facility] 145 11/04/2022 01:06 PM CREATININE, RANDOM URINE - [facility] 180 12/03/2021 03:27 PM CREATININE-OUTSIDE LAB 1.92 (A) 06/15/2020 12:00 AM Therapy Management Assessment/Plan: 1) Diabetes: A1c not at goal and repaglinide not renal protective.Patient agreeable to starting SGLT2. Sent encounter to PCP regarding UTI symptoms and patient got urine dip today ahead of starting Jardiance. POC doesn't appear to have infection, but will send for culture. Per PCP, patient okay to start Jardiance in the meantime. START Jardiance 10mg daily in the morning STOP Replaglinide 2mg upon starting jardiance Called patient to let her know about urine results and to start Jardiance - home phone and cell phone have no voicemail and patient not active on MyG. Patient called back 4:53 PM - will flower buncher or picker jardiance and start. Follow up in 1 week for BMP with nephro appt. Vivian Glass RPh, Pharm D Clinical Pharmacist [facility] 06/03/2023, 10:12 AM documented in this encounter Miscellaneous Notes * Addendum Note - Vivian Shrestha RPh - 06/04/2023 4:53 PM EDT Addended by: VIVIAN SINGLETON on: 06/04/2023 04:53 PM Modules accepted: Orders documented in this encounter Plan of Treatment Upcoming Encounters Date Type Specialty Care Team Description 06/10/2023 Office Visit Nephrology José Antonio Estes MD [address] [place] [address] 06/25/2023 Office Visit Dermatology Tania Castro MD [address] [place] [address] 07/29/2023 Office Visit Family Medicine Bozena De DO 293 [place] [address] 07/29/2023 Imaging Radiology 08/31/2023 Nurse Only [facility], Nurse Annual Wellness Visit 65 [address] [facility] 293 [place] [address] Scheduled Orders Name Type Priority Associated Diagnoses Orde r Schedule BASIC METABOLIC PANEL Lab Routine Type 2 diabetes mellitus with hemoglobin A1c goal of less than 8.0% (HCC) Expected: 06/07/2023 (Approximate), Expires: 06/03/2024 Health Maintenance Due Date Last [...] 09/05/2022, Additional history exists HbA1c 10/22/2023 04/22/2023, 01/2023, 05/20/2022, Additional history exists Albumin/Creatinine Ratio 11/04/2023 11/04/2022, 12/2021 DIABETES-EYE EXAM 04/22/2024 04/22/2023, 12/24/2021 DIABETES-FOOT [...] Procedure Name Priority Date/Time Associated Diagnosis Comments URINALYSIS, POINT OF CARE [facility] 06/04/2023 11:14 AM EDT documented in this encounter Results * (ABNORMAL) URINALYSIS, POINT OF CARE (06/04/2023 11:14 AM EDT) Color, Urine Yellow Light Yellow, Yellow 06/04/2023 11:16 AM EDT [facility] Clarity, Urine Clear Clear 06/04/2023 11:16 AM EDT [facility] Glucose, Urine Negative Negative mg/dL 06/04/2023 11:16 AM EDT [facility] Bilirubin, Urine Negative Negative 06/04/2023 11:16 AM EDT [place] [address] Ketone, Urine Negative Negative mg/dL 06/04/2023 11:16 AM EDT [place] [address] Specific [place], Urine 1.020 1.003 - 1.030 06/04/2023 11:16 AM EDT [place] [address] Blood, Urine Negative Negative 06/04/2023 11:16 AM EDT [place] [address] pH, Urine 5.5 5.0, 5.5, 6.0, 6.5, 7.0, 7.5 units 06/04/2023 11:16 AM EDT [place] [address] Protein, Urine Negative Negative mg/dL 06/04/2023 11:16 AM T [place] [address] Urobilinogen, Urine 0.2 0.2, 1.0 mg/dL 06/04/2023 11:16 AM EDT [facility] Nitrite, Urine Negative Negative 06/04/2023 11:16 AM EDT [facility] Esterase, Urine Small(A) Negative 06/04/2023 11:16 AM T [facility] Urine 06/04/2023 11:1 4 AM EDT 06/04/2023 11:16 AM EDT Pharmacist [address] [place] [address] LAB POINT OF CARE TEST DOCKED DEVICE UNSOLICITED RESULTS [facility] [address] [facility] [address] documented in this encounter Visit Diagnoses Diagnosis Type 2 diabetes mellitus with hemoglobin A1c goal of less than 8.0% (HCC)- Primary documented in this encounter Care Teams Farm Reporter Relationship Specialty Start Date End Date Bozena De DO [address] [facility] [address] PCP - General Family Medicine 04/22/23 documented as of this encounter
--- OUTSIDE RECORDS SUMMARY | 2023-11-10 12:16 | External Medical Summary | Summary of Care ---
Author Name Unknown Organization [facility] Address [address] [place] [address] Phone [phone] Care Team Providers Care Gunstock Spray Unit Adjuster Name Role Phone GailBozena haas Primary Care Provider [phone] Reason for Visit * Reason Comments Dosage Adjustment Via Phone (anticoag Cl inic) Diabetes Follow-Up Encounter Details Date Type Department Care Team Description 06/04/2023 Telemedicine Family Practice 65 [facility] [address] [place] [phone] [place], Pharmacist [address] [address] Type 2 diabetes mellitus with hemoglobin A1c goal of less than 8.0% ([facility])* Allergies Active Allergy Reactions Severity Noted Date [...] Tablet before bedtime. 0 Active Afrin Nasal [place] 0.05 % Nasal Solution (oxymetazoline) Administer 2 [...] suboptimal and may underestimate any underlying obstruction [facility] in past . Cards-saw Dr Live [...] this encounter Progress Notes * Vivian Shrestha, [facility] - 06/03/2023 10:12 AM EDT Diabetes telephone [...] Patient called back 4:53 PM - will pickle solution maker jardiance and start. Follow up in 1 [...] Visit Nephrology José Antonio Estes MD 200 [place] [address] 06/25/2023 Office Visit Dermatology Tania Castro MD 200 [place] [address] 07/29/2023 Office Visit Family Medicine Bozena De DO 293 [place] [address] 07/29/2023 Imaging Radiology 08/31/2023 Nurse Only [facility], Nurse Annual Wellness Visit 65 Forward [facility] [address] [place] [address] Scheduled Orders Name Type Priority Associated Diagnoses [...] Associated Diagnosis Comments URINALYSIS, POINT OF CARE [facility] 06/04/2023 11:14 AM EDT documented in this [...] Urine Negative Negative 06/04/2023 11:16 AM EDT [place] [address] Ketone, Urine Negative Negative mg/dL 06/04/2023 11:16 AM EDT [place] [address] Specific [place], Urine 1.020 1.003 - 1.030 06/04/2023 11:16 AM EDT [place] [address] Blood, Urine Negative Negative 06/04/2023 11:16 AM EDT [place] [address] pH, Urine 5.5 5.0, 5.5, 6.0, 6.5, 7.0, 7.5 units 06/04/2023 11:16 AM EDT [place] [address] Protein, Urine Negative Negative mg/dL 06/04/2023 11:16 AM T [place] [address] Urobilinogen, Urine 0.2 0.2, 1.0 mg/dL 06/04/2023 11:16 AM EDT [facility] Nitrite, Urine Negative Negative 06/04/2023 11:16 AM EDT [facility] Esterase, Urine Small(A) Negative 06/04/2023 11:16 AM T [facility] Urine 06/04/2023 11:1 4 AM EDT 06/04/2023 11:16 AM EDT Pharmacist [address] [place] [address] LAB POINT OF CARE TEST DOCKED DEVICE UNSOLICITED RESULTS [facility] [address] [facility] [address] documented in this encounter Visit Diagnoses Diagnosis Type 2 diabetes mellitus with hemoglobin A1c goal of less than 8.0% (HCC)- Primary documented in this encounter Care Teams Gunstock Spray Unit Adjuster Relationship Specialty Start Date End Date Bozena De DO [address] [facility] [address] PCP - General Family Medicine 04/22/23 documented as of this encounter
--- OUTSIDE RECORDS SUMMARY | 2023-11-10 12:16 | External Medical Summary | Summary of Care ---
Author Name Unknown Organization [facility] Address [address] [place] [address] Phone [phone] Care Team Providers Care Marketing Director Assisted Living Name Role Phone Bozena De DO Primary Care Provider [phone] Reason for Visit * Reason Onset Date Comments Advice 06/03/2023 Encounter Details Date Type Department Care Team Description 06/03/2023 Telephone Family Practice 65 [facility] [address] [place] [phone] Bozena De DO [address] [place], [place] [phone] Advice Allergies Active Allergy Reactions Severity Noted [...] Tablet before bedtime. 0 Active Afrin Nasal [place] 0.05 % Nasal Solution (oxymetazoline) Administer 2 [...] mRNA, LNP-s, No Pre serve, 2-Dose Series (ip.access) 02/05/2021,01/15/2021 COVID-19, LNP-s, No Preserve , Torito-sucrose, [...] Miscellaneous Notes * Telephone Encounter - Vivian Becerrilfortunato Shrestha, [facility] - 06/03/2023 10:21 AM EDT Also complaining [...] please send to Heriberto Stephens on Maryan Keenan [phone] Please contact pt with any questions or concerns. documented in this encounter Plan of Treatment Upcoming Encounters Date Type Specialty Care Team Description 06/04/2023 Telemedicine [facility], Pharmacist 65 [facility] [address] [place] [address] 06/10/2023 Office Visit Nephrology José Antonio Estes MD [address] [place] [address] 06/25/2023 Office Visit Dermatology Tania Castro MD [address] [place] [address] 07/29/2023 Office Visit Family Medicine Bozena De DO 293 [place] [address] 07/29/2023 Imaging Radiology 08/31/2023 Nurse Only [facility] [place], Nurse Annual Wellness Visit [address] [facility] 293 [place] [address] Health Maintenance Due Date Last Done Comments [...] exists Albumin/Creatinine Ratio 11/04/2023 11/04/2022, 020 12/2021 DIABETES-EYE EXAM 04/22/2024 04/22/2023, 12/24/2021 DIABETES-FOOT [...] filedocumented as of this encounter Care Teams Marketing Director Assisted Living Relationship Specialty Start Date End Date Bozena De, [address] [place] [address] PCP - General Family Medicine 04/22/23 documented as of this encounter
--- OUTSIDE RECORDS SUMMARY | 2023-11-10 12:16 | External Medical Summary | Summary of Care ---
Author Name Unknown Organization [facility] Address [address] [place] [address] Phone [phone] Care Team Providers Care Nurse Chemical Dependency Name Role Phone Boznea De DO Primary Care Provider Reason for Visit * Reason Onset Date Comments Medication Refill 05/25/202305/25, 05/26 Encounter Details Date Type Department Care Team Description 05/25/2023 Telephone Family Practice [address] [facility], [place] [address] [place] [phone] Bozena De [address] [place] [address] Medication Refill (05/25, 05/26) Allergies Active Allergy Reactions Severity Noted Date Comments Baclofen Neuro complications (Please comment) 08/18/2022 confusion Phenytoin Sodium Extended Itching Low 01/07/2017 Fentanyl 04/24/2022 Lamotrigine 01/07/2017 Midazolam Neuro complications (Please comment) High 08/18/2022 confusion documented as of this encounter (statuses as of 05/28/2023) Medications Medication Sig Dispensed Refills Start Date [...] Tablet before bedtime. 0 Active Afrin Nasal [place] 0.05 % Nasal Solution (oxymetazoline) Administer [...] for sleep. 15 Tablet 0 05/28/2023 Active LORazepam 1 MG Oral Tablet (Ativan)Indication [...] as of this encounter (statuses as of 05/28/2023) Active Problems Problem Noted Date Hypertensive kidney [...] dx 2005, follows w/Dr. Sheldon stable on topSunfun Infox Well adult exam 12/03/2021 Overview: 10/22 PFTs [...] as of this encounter (statuses as of 05/28/2023) Immunizations Name Administration Dates Next Due COVID-19 mRNA, LNP-s, No Pre serve, 2-Dose Series (Snapsheet) 02/05/2021,01/15/2021 COVID-19, LNP-s, No Preserve , Torito-sucrose, [...] encounter Miscellaneous Notes * Telephone Encounter - Roz Perez LPN - 05/28/2023 1:47 PM EDT Patient aware and verbalized understanding. * Telephone Encounter - Bozena De DO - 05/28/2023 1:35 PM EDT I will prescribe 15 but no more than that. If this is not helping, would advise appt to discuss other options for sleep. * Telephone Encounter - Roz Perez LPN - 05/26/2023 10:53 AM EDT Spoke to patient. She states she uses these when she has trouble sleeping, which is what they were originally prescribed for by Dr. Rodriguez. She last filled it on 04/09/23. Reports that she usually cuts them in half. When asked how many she thought she needed, she said she didn't know but just a few more than 10. States she does not use them or need them every night, just every now and then. Pharmacy selected in chart, if appropriate. * Telephone Encounter - Roz Perez LPN - 05/26/2023 10:36 AM EDT Attempted to call mobile, no answer and voicemail not set up. Called home number, left message to call back. * Telephone Encounter - Roz Perez LPN - 05/25/2023 11:58 AM EDT Attempted to call patient, no answer. Voicemail not set up. Calling for more details - see how many tablets/how often patient is using. * Telephone Encounter - Pippa Valenzuela - 05/25/2023 9:21 AM EDT Pt called requesting lorazepam. Pt said she received 10 tabs last time but was wondering if dr could prescribe more then 10 tabs. Thanks, Pippa Valenzuela [employer] [facility] 05/25/2023,9:22 AM documented in this encounter Plan of Treatment Upcoming Encounters Date Type Specialty Care Team Description 06/04/2023 [facility], Pharmacist [address], [place] [address] 07/29/2023 Office Visit Family Medicine Bozena De, DO 293 [place] [address] 07/29/2023 Imaging Radiology 08/31/2023 Nurse Only [facility] [employer], Nurse Annual Wellness Visit [address] [facility] 293 [place] [place] [address] Health Maintenance Due Date Last Done Comments [...] type documented in this encounter Care Teams Nurse Chemical Dependency Relationship Specialty Start Date End Date Bozena De, DO [address] [place] [address] PCP - General Family Medicine 04/22/23 documented as of this encounter
--- OUTSIDE RECORDS SUMMARY | 2023-11-10 12:16 | External Medical Summary ---
Author Name Unknown Address Unknown Organization : Laboratory Report Ordering Provider Test Date Status PHARMACISTBARRETT 06/04/2023 11:14:00 Final Observation Date Value Abnormality Reference (Units ) Status Color of Urine by Auto 06/04/2023 11:14:00 Yellow Light Yellow, Yellow Final Clarity, Urine 06/04/2023 11:14:00 Clear Clear Final Glucose [Mass/volume] in Urine by Automated test strip 06/04/2023 11:14:00 Negative Negative (mg/dL) Final Bilirubin.total [Presence] in Urine by Automated test strip 06/04/2023 11:14:00 Negative Negative Final Ketones [Mass/volume] in Urine by Automated test strip 06/04/2023 11:14:00 Negative Negative (mg/dL) Final Specific gravity, Urine 06/04/2023 11:14:00 1.020 1.003-1.030 Final Hemoglobin [Presence] in Urine by Automated test strip 06/04/2023 11:14:00 Negative Negative Final pH, Urine 06/04/2023 11:14:00 5.5 5.0, 5.5, 6.0, 6.5, 7.0, 7.5 (units) Final Protein [Mass/volume] in Urine by Automated test strip 06/04/2023 11:14:00 Negative Negative (mg/dL) Final Urobilinogen, Urine 06/04/2023 11:14:00 0.2 0.2, 1.0 (mg/dL) Final Nitrite [Presence] in Urine by Automated test strip 06/04/2023 11:14:00 Negative Negative Final Leukocyte esterase [Presence] in Urine by Automated test strip 06/04/2023 11:14:00 Small Abnormal Negative Final Performing Location
--- OUTSIDE RECORDS SUMMARY | 2023-11-10 12:16 | External Medical Summary | Summary of Care ---
Author Name Unknown Organization [facility] Address [address] [place] [address] Phone [phone] Care Team Providers Care Agriculture Teacher Name Role Phone Bozena De DO Primary Care Provider Reason for Visit * Reason Onset Date Comments Advice 06/03/2023 Encounter Details Date Type Department Care Team Description 06/03/2023 Telephone Family Practice 65 [facility] [place] [address] [place] [phone] Bozena De DO [address] [place], [place] [phone] Advice Allergies Active Allergy Reactions Severity Noted [...] Tablet before bedtime. 0 Active Afrin Nasal [place] 0.05 % Nasal Solution (oxymetazoline) Administer 2 [...] and may underestimate any underlying obstruction [facility] in past . Cards-saw Dr Live in [...] mRNA, LNP-s, No Pre serve, 2-Dose Series (LiveProfile) 02/05/2021,01/15/2021 COVID-19, LNP-s, No Preserve , Torito-sucrose, [...] Miscellaneous Notes * Telephone Encounter - Vivian Beecrrilfortunato Shrestha, [facility] - 06/03/2023 10:21 AM EDT Also complaining [...] send to Heriberto Stephens on Maryan Keenan [phone] Please contact pt with any questions or concerns. documented in this encounter Plan of Treatment Upcoming Encounters Date Type Specialty Care Team Description 06/04/2023 Telemedicine [facility], Pharmacist 65 [facility] [address] [place] [address] 06/10/2023 Office Visit Nephrology José Antonio Estes MD 200 [place] [address] 06/25/2023 Office Visit Dermatology Tania Castro MD [address] [place] [address] 07/29/2023 Office Visit Family Medicine Bozena De DO [address] [place] [address] 07/29/2023 Imaging Radiology 08/31/2023 Nurse Only Ancillary [place], Nurse Annual Wellness Visit 65 Forward [facility] 293 [place] [address] Health Maintenance Due Date Last Done Comments [...] filedocumented as of this encounter Care Teams Agriculture Teacher Relationship Specialty Start Date End Date Bozena De, [address] [place] [address] PCP - General Family Medicine 04/22/23 documented as of this encounter
[2023-11-10] MEDS ORDERED: hydrALAZINE HCL 20 MG/ML VIAL IV STA (13:08)
[2023-11-10] MEDS ORDERED: ONDANSETRON INJ 2 MG/ML 2 ML VIAL ONE (13:18)
--- NOTE | 2023-11-10 13:56 | Electrocardiogram Report ---
Test Reason : Blood Pressure : / mmHG Vent. Rate : 061 BPM Atrial Rate : 000 BPM P-R Int : 000 ms QRS Dur : 064 ms QT Int : 486 ms P-R-T Axes : 000 037 -13 degrees QTc Int : 489 ms Poor data quality, interpretation may be adversely affected Sinus rhythm Possible Old Septal infarct (cited on or before 10-NOV-2023) Nonspecific ST and T wave abnormality Inferior leads Abnormal ECG When compared with ECG of 10-NOV-2023 09:41, No significant change Confirmed by Herber Zayas ([id number]) on 11/10/2023 1:56:39 PM Referred By: REFERRED SELF Confirmed By:Herber Zayas
[2023-11-10] MEDS ORDERED: GLUCAGON 1 MG in SYRINGE 0 ML IV STA (14:22)
[2023-11-10] MEDS ORDERED: LORazepam 1 MG/1 ML SYR ED Inj Use IV STA (14:24)
[2023-11-10] MEDS ORDERED: FAMOTIDINE 20 MG in SYRINGE 3 ML IV STA (14:31)
--- NOTE | 2023-11-10 14:42 | History & Physical Report ---
Date of Service November 10, 2023 Assessment & Plan (1) DKA (diabetic ketoacidosis): Plan: Admit to telemetry Patient presenting from home with reports of headache, nausea, vomiting. In the ED, found to be in euglycemic DKA with pH 7.19, bicarb 15, anion gap 25, glucose 140 Has been on Jardiance since 06/2023 and started Ozempic about 2 weeks ago Insulin drip and IVF as per protocol Trend VBG, BMP Hgb A1c 8.3 09/2023 (2) Hypertensive urgency: Plan: Presenting BP 218/117 Longstanding history of uncontrolled HTN with CKD stage IV Hydralazine PRN Continue home amlodipine and atenolol, adding additional agents as needed (3) Abnormal CT of the abdomen: (4) Dysphagia: Plan: CT ABD/pelvis showing apparent wall thickening of the gastric cardia. This is probably artifactual. However, gastritis or an underlying mucosal lesion cannot be excluded. Patient also complains of dysphagia and pills getting stuck in her chest GI consult (5) Complex partial seizure: Plan: Chronic, stable Continue Topamax (6) CKD (chronic kidney disease), stage IV: Plan: Baseline creatinine high 1s-low 2s Creatinine 2.0 today Continue sodium bicarb tablets (7) Asthma: Plan: Chronic, stable No signs of acute exacerbation Continue home inhalers (8) Depression: Plan: Chronic, stable Continue home meds DVT PROPHYLAXIS SQ heparin Patient seen in collaboration with Dr. Knapp. I spent a total of 75 minutes coordinating, documenting, and providing care for this patient excluding time spent in the performance of separately billed services. This included personally reviewing all current laboratories and imaging studies, medication reconciliation, outpatient chart review, and discussion with specialists. History of Present Illness Chief Complaint: Headache, nausea, vomiting Primary Care Provider: Bozena De DO 73-year-old female PMH DM type II, dyslipidemia, hypothyroidism, HTN, CKD stage IV, seizure disorder, history of breast cancer, and other problems listed below who presents to the ED for evaluation of headache, nausea, vomiting. History is obtained from the patient and review of outpatient PCP records. Patient reports that for the past 6 days, she has had a headache along with nausea and several episodes of vomiting. Patient started taking Ozempic 2 weeks ago. She also states that whenever she takes her pills, she feels like they are getting stuck in her chest. She denies chest pain and shortness of breath. Denies hematemesis, coffee-ground emesis, bright open proximal, dark tarry stools. No fevers or chills. Denies lightheadedness, dizziness, diaphoresis, syncopal events. No urinary symptoms. In the ED, patient is found to be in euglycemic DKA with VBG pH 7.19, bicarb 15, anion gap 25, glucose 141. Patient was given IVF and started on insulin drip. Allergies Allergy/AdvReac Type Severity Reaction Status Date / Time baclofen Allergy Unknown Confusion Verified 11/10/23 11:48 lamotrigine Allergy Unknown UNKNOWN Verified 11/10/23 11:48 phenytoin Allergy Unknown UNSURE Verified 11/10/23 11:48 fentanyl AdvReac Severe MARKED Verified 11/10/23 11:48 CONFUSION W/ ABSENCE OF SEDATION midazolam AdvReac Severe MARKED Verified 11/10/23 11:48 CONFUSION W/ ABSENCE OF SEDATION Home Medications Medication Instructions Recorded Confirmed Type aspirin 81 mg tablet,delayed 81 mg PO QAM 07/01/18 11/10/23 History release (Aspir-) cetirizine 10 mg tablet 10 mg PO BID 05/25/19 11/10/23 History lancets 33 gauge (SepSensorTouch Delica #100 ea 05/25/19 02/10/21 History Lancets) ondansetron HCl 4 mg tablet 4 mg PO Q6H PRN Nausea 05/25/19 11/10/23 History (Zofran) blood sugar diagnostic (SepSensorTouch #200 ea 08/15/19 02/10/21 Rx Verio test strips) atorvastatin 40 mg tablet 40 mg PO HS #90 tabs 10/16/20 11/10/23 Rx albuterol sulfate 90 mcg/actuation 1 - 2 puff inhalation Q4H PRN 01/20/21 11/10/23 Rx aerosol inhaler Shortness Of Breath #18 grams omeprazole 20 mg capsule,delayed 20 mg PO DAILY PRN Acid Reflux 02/10/21 11/10/23 History release atenolol 50 mg tablet 50 mg PO QAM #90 tabs 04/08/22 11/10/23 Rx methocarbamol 500 mg tablet 500 mg PO BID PRN neck spasms 30 06/23/23 11/10/23 Rx days #60 tabs topiramate 200 mg tablet 200 mg PO BID 90 days #180 tabs 10/18/23 11/10/23 Rx amlodipine 10 mg tablet 10 mg PO QAM 11/10/23 11/10/23 History calcium carbonate 600 mg calcium 600 mg PO QAM 11/10/23 11/10/23 History (1,500 mg) tablet cholecalciferol (vitamin D3) 50 100 mcg PO DAILY 11/10/23 11/10/23 History mcg (2,000 unit) tablet empagliflozin 10 mg tablet 10 mg PO QAM 11/10/23 11/10/23 History (Jardiance) fluticasone furoate 200 1 inh inhalation QAM 11/10/23 11/10/23 History mcg-vilanterol 25 mcg/dose inhalation powder (Breo Ellipta) levothyroxine 75 mcg tablet 75 mcg PO QAM 11/10/23 11/10/23 History (Synthroid) lorazepam 1 mg tablet 0.5 - 1 mg PO DAILY PRN Anxiety 11/10/23 11/10/23 History oxybutynin chloride 10 mg 10 mg PO QAM 11/10/23 11/10/23 History tablet,extended release 24 hr semaglutide 0.25 mg or 0.5 mg (2 0.25 mg subcut WK 11/10/23 11/10/23 History mg/3 mL) subcutaneous pen injector (Ozempic) sertraline 25 mg tablet 25 mg PO QAM 11/10/23 11/10/23 History sodium bicarbonate 650 mg tablet 650 mg PO BID 11/10/23 11/10/23 History Past Med/Surg History Medical History (Updated 11/10/23 @ 15:18 by NAVA King) CKD (chronic kidney disease), stage IV Hyperactivity of bladder Insomnia Vitamin D deficiency Rosacea Postmenopausal atrophic vaginitis Osteoporosis Mild aortic regurgitation Hypothyroidism, postablative Diabetic nephropathy associated with type 2 diabetes mellitus Chronic sinusitis Chronic cerebral ischemia Asthma Anxiety disorder Anemia due to chronic kidney disease Allergic rhinitis Adhesive capsulitis of left shoulder Seizure disorder Dyslipidemia Hypertension Type 2 diabetes mellitus Hx of breast cancer (03/31/13) Cervical radiculopathy at C8 Surgical History H/O hysterectomy with oophorectomy Hx of lumpectomy RT History of hysterectomy History of colonoscopy History of tooth extraction History of cataract surgery History of cardiac cath 2013/NO STENTS Family History Mother Family history of diabetes mellitus Breast cancer Father Family history of diabetes mellitus Atrial fibrillation Cardiac disorder Depression Sister Cardiac disorder Social History Smoking Status: Never smoker Second Hand Exposure: No; Do You Dip or Chew Tobacco: No; Hx Alcohol Use: No Hx Substance Use: No Preferred Language: Serbian Communication Ability: Effective Visual Impairment: Partially Limited Hearing Ability: Normal Play Writer Required: No Beliefs That Will Affect Care: None Current Living Situation: Family Current Living Situation Comment: LIVES WITH SON Feels Safe at Home: Yes Childhood Exposure to Second-Hand Smoke: Yes caffeine: Yes Dental Care, Regularly: Yes Physical Activity Frequency: Daily Seatbelt Use: always Sunscreen Use: Yes Assistive Devices: Glasses Physical Exam Constitutional: WD/WN, vitals as above no acute distress Eyes: PERRL, conjunctivae normal, anicteric sclerae ENMT: Ears: no external ear abnormality Nose: no external nose abnormality Mouth: + dry oral mucous membranes Respiratory: normal respiratory effort, lungs clear to auscultation Cardiovascular: Rate/Rhythm: regular rate and regular rhythm Vessels: normal peripheral pulses Extremities: no edema Gastrointestinal (Abdomen): normal bowel sounds, soft, nontender, no hepatosplenomegaly Musculoskeletal: no cyanosis or clubbing, extremities motor strength 5/5 Skin: no rashes, warm and dry Neurologic: PERRL, EOMI, accommodation nl, no face palsy, no dysarthria Psychiatric: A+Ox3, euthymic affect Results & Data Results & Data Vital Signs (Past 12 Hours) Vital Signs Temp Pulse Pulse Resp BP BP Pulse Ox 11/10/23 13:33 68 18 193/113 H 100 11/10/23 12:05 106 H 20 222/137 H 99 11/10/23 11:08 61 20 181/109 H 99 11/10/23 10:29 59 L 11/10/23 09:35 36.8 C 74 18 218/117 H 99 O2 Del Method 11/10/23 13:33 Room Air 11/10/23 12:05 11/10/23 11:08 11/10/23 10:29 11/10/23 09:35 Room Air Laboratory Results Short CBC 11/10/23 Range/Units 09:50 WBC 11.03 H (4.8-10.8) K/ul Hgb 16.3 H (12.0-16.0) g/dl Hct 46.7 (37.0-47.0) % Plt Count 265 (130-400) K/uL BMP 11/10/23 09:50 Sodium 138 Potassium 4.0 Chloride 98 Carbon Dioxide 15 L BUN 33 H Creatinine 2.07 H Glucose 141 H Calcium 9.7 Cardiac Enzymes 11/10/23 Range/Units 09:50 Total Creatine Kinase 99 (26-192) U/L Liver Function 11/10/23 Range/Units 09:50 Total Bilirubin 0.4 (0.2-1.0) mg/dl AST 19 (13-39) U/L ALT 13 (7-52) U/L Alkaline Phosphatase 69 (34-104) U/L Albumin 4.5 (3.4-5.0) gm/dl Diagnostic Findings Chest X-Ray 11/10/23 09:46 XR chest 1V portable CLINICAL HISTORY: weakness, abdominal pain COMPARISON STUDY: Chest radiograph August 08, 2019. Chest CT September 24, 2014. FINDINGS: Lung volumes are normal. Lungs are clear. There is no pneumothorax or pleural effusion. Cardiac size is normal. Mediastinal contours are normal. There is no evidence for pulmonary edema. IMPRESSION: No acute cardiopulmonary findings. ACT 112: Negative or not required by law. Electronically signed by: Raj Green M.D. 11/10/2023 10:23 AM Abdomen/Pelvis CT 11/10/23 09:47 CT OF THE ABDOMEN AND PELVIS WITHOUT CONTRAST CLINICAL HISTORY: Abdominal pain, vomiting and constipation. COMPARISON STUDY: CT of the abdomen and pelvis February 24, 2018. TECHNIQUE: Axial images of the abdomen and pelvis were obtained without IV contrast. Images were reviewed in the axial, sagittal, and coronal planes. Automated exposure control was utilized for the study. A dose lowering technique was utilized adhering to the principles of ALARA. FINDINGS: A 5 mm left lower lobe pulmonary nodule is similar to CT of February 24, 2018. This is benign given stability. No pneumatosis, free air or portal venous gas is present. There are no renal, ureteral or bladder calculi. There is no hydronephrosis or hydroureter. Evaluation of the remainder of the abdomen and pelvis is suboptimal on this unenhanced exam. 6 mm lateral segment hepatic lesion is suboptimally assessed on this unenhanced exam but probably reflects a cyst. Spleen, adrenal glands and pancreas are unremarkable. There is no biliary or pancreatic ductal dilatation. No peripancreatic or pericholecystic infiltration is present. Stomach is mildly distended and fluid-filled. There is apparent wall thickening of the gastric cardia shown on axial image 43 of 305. There is no evidence for a bowel obstruction. A moderate amount of stool within the colon is noted. There is no stool within the rectum. There is no lymphadenopathy. No fluid collection is present. There is no ascites. No suspicious lesions within the visualized skeletal structures are present. The appendix is normal. IMPRESSION: 1. No evidence for a bowel obstruction. Moderate amount of stool within the colon. No stool within the rectum. Normal appendix. 2. Apparent wall thickening of the gastric cardia. This is probably artifactual. However, gastritis or an underlying mucosal lesion cannot be excluded. GI consultation for consideration for nonemergent upper endoscopy is recommended. 3. No urinary calculi or hydronephrosis. ACT 112: Positive. There are findings on this exam that require communication between the performing entity and the patient following Patient Test Result Information Act ([place] Act 112) guidelines. Electronically signed by: Raj Green M.D. 11/10/2023 10:58 AM Code Status & VTE Plan VTE Prophylaxis Plan VTE Prophylaxis will be ordered: Yes Supervising Physician Co-Signing Physician Notes I have seen and examined the patient and have discussed the case with the provider above. I agree with the assessment and plan as stated with the following exceptions. Patient is a 73-year-old female with history as noted above who recently started Ozempic. As I walked into the room she is screaming out how much chest pain is present and grabbing the center of her chest. She began to calm down but I was unable to get a history from her other than the pain started on Wednesday, 5 days ago and has been constant. She reported to me that she vomited and "I told you what it looked like", however I could not get her to give me a description. She was preoccupied with telling her [id number] again and again to not leave the room or leave her. She was exhibiting extreme anxiety. She then flipped to anger and kept calling her PCP "tariq." I tried to mortgage loan counselor her on Jardiance causing euglycemic DKA, however, she was unable to receive this information due to her distressed state. She did report a feeling that something was stuck in her esophagus for days and that all she wanted to do was get it out. Therefore we are trying a trial of glucagon IV. She did have some orange juice on her bedside table which I removed and switched out for water. She was happy with this and was able to drink down a few sips of this. She declined any's carbonated beverages at this time but did report that she had tried to use those at home with no success. She is very worked up and this is likely the reason for her elevated blood pressure which was treated with hydralazine in the ER. It is currently 176/86 after treatment. She reported not coming in until now because "my son needs me." [id number] who is at the bedside assist with history and states that son is disabled. She also tried to reassure patient that son had appropriate care at home at this time. On exam patient is in a moderate amount of distress intermittently. She is oxygenating well on room air. She is not working to breathe. Cardiac exam is unremarkable. Lungs are clear to auscultation bilaterally. Abdomen is soft nontender nondistended. Physical exam is otherwise unremarkable. Workup as noted above with a mild leukocytosis of 11 K. She has a high anion gap metabolic acidosis secondary to euglycemic DKA and is on insulin and glucose. Creatinine is 2.07 which is appearing to be around her baseline. Lactate is normal. She has a mild elevation in her troponin enzyme to 27 with repeat of 28 two hours later. EKG revealed sinus rhythm. CT scan without contrast as noted above. Thickening of the stomach lining and moderate amount of stool within the colon is present. 1. Substernal chest pain -differential includes but not limited to GI side effect from GLP-1 agonist use, esophageal spasm, pill esophagitis, severe acid reflux, or less likely ACS/peptic ulcer disease. 2. Euglycemic DKA in setting of diabetes mellitus type 2 secondary to empagliflozin use 3. Hypertensive urgency in setting of severe anxiety/pain 4. CKD stage III 73 yo F presents with symptoms of chest pain and abdominal discomfort likely secondary to euglycemic DKA from empagliflozin use, acutely worse after starting GLP-1 agonist (Ozempic) in the last two weeks. She reports her second injection was 3 days ago, and KRISTA reports constipation along with the vomiting. It is very likely the GLP-1 agonist is contributing to slow GI transit as a known side effect and contributing to the severe globus sensation present today on exam. Doubt ACS, however, given nonspecific EKG changes and mild elevation in troponin, will obtain echocardiogram to ensure no acute wall motion abnormalities. Cont telemetry monitoring. Appreciate GI recommendations regarding possible inpatient upper endoscopy, especially if symptoms do not improve with this conservative treatment (glucagon, ativan, pepcid). Regarding her DKA, BSG trended down to 107 and D5 was changed to D10. Patient is unable to tolerate OJ at this time, updated RN to please provide glucose gel, IV dextrose or other alternative for treatment of hypoglycemia. Cont insulin drip until gap is closed, and cont supporting with dextrose and additional potassium. Trend labs q4h. She and her KRISTA verbalized understanding that Jardiance is to be stopped and not restarted, and to stop Ozempic as a therapy with further discussion with PCP prior to restarting this in the future. DO Ra (1) DKA (diabetic ketoacidosis) Diabetes mellitus complication detail: without coma Diabetes mellitus type: type 2 Qualified Code(s): E11.10 - Type 2 diabetes mellitus with ketoacidosis without coma
[2023-11-10] MEDS ORDERED: DEXTROSE 10% 1,000 ML IV SCH (14:45)
--- NOTE | 2023-11-10 15:55 | Pharmacy Report ---
ED Pharmacist Progress Note - ED Pharmacist Progress Note Date of Service:: November 10, 2023 Notes:: Discussed insulin infusion with Dr. Knapp, RN Petey. Current plan to increase insulin infusion rate to 0.05 units/kg/hr (2.4 units/hr) and keep at this rate without titration until gap closes/bicarb improved. D10 is currently infusing at 125 ml/hr (~.26 gm/kg/hr), will be titrated based on BSG, RN to contact physician with BSG >180 mg/dL or <110 mg/dL. q1 hour BSG checks, or q15 minutes if below goal.
[2023-11-10] MEDS ORDERED: DEXTROSE 50% 50 ML SYRINGE IV PRN (16:00)
[2023-11-10] MEDS ORDERED: GLUCOSE 10 TAB/TUBE PO PRN (16:00)
[2023-11-10] MEDS ORDERED: GLUCOSE 40% GEL 15 GM TUBE PO PRN (16:00)
[2023-11-10] MEDS ORDERED: GLUCAGON FOR INJ 1 MG VIAL IM PRN (16:00)
[2023-11-10] MEDS ORDERED: CARBOHYDRATES FOR HYPOGLYCEMIA PO PRN (16:00)
--- NOTE | 2023-11-10 16:48 | Pharmacy Report ---
Pharmacy Glycemic Short Note 2 - Date of Service November 10, 2023 - Glycemic Short BSG Results (Last 24 hours): 11/10/23 11/10/23 11/10/23 09:50 12:55 14:16 Glucose 141 H POC Glucose 117 H 107 H 11/10/23 11/10/23 15:24 16:23 Glucose POC Glucose 134 H 234 H OUTPATIENT ANTIDIABETIC REGIMEN: * Jardiance 10 mg PO daily * Ozempic 0.25 mg SC every Wednesday * HbA1c: 8.3% (09/09/23 - [facility]) ASSESSMENT: * 73 yo F admitted on 11/10/23 secondary to euglycemic DKA. Pharmacy has been consulted to assist with inpatient glycemic management. Patient is a Type 2 diabetic as an outpatient. Please refer to outpatient regimen and most recent HbA1c above. * Initial labs showed a BSG of 141 with AG 25, CO2 15, and pH 7.19. SCr is 2.07 mg/dL. * Per provider patient is to be started on insulin drip at 0.05 units/kg/hr which is 2.4 units/hr. RN is not to titrate this order and provider should be contacted for BSGs below 110 mg/dL or above 180 mg/dL (goal range). D10 is infusing as well at 125 mL/hr. * No repeat labs as of yet. Will monitor. * Possible transition later this evening if acidosis resolves. PLAN FOR INPATIENT GLYCEMIC CONTROL: * Hold outpatient oral diabetes medication and GLP1-RA * Continue insulin drip at 2.4 units/hr (do not titrate) * RN, please contact provider if BSG < 110 or > 180 mg/dL * Basal insulin * If transition occurs this evening, would recommend 15 units x 1 * Bolus insulin - per insulin drip calculator for now (see below for transition recommendations) * NovoLog per scale ACHS or Q6hrs while NPO * Goal Range: Low 110 mg/dL - High 140 mg/dL * Correction Factor: 35 mg/dL/unit * Nutritional / Prandial insulin per carb ratio of 1 unit per 11 grams CHO consumed
[2023-11-10 17:48] LABS: BUN Creatinine Ratio 16.7 (10-20); Calcium 8.4 mg/dl (8.6-10.3); Creatinine Clr Calc Pharmacy 17.1 ml/min; Est GFR (African American) 32.9 ml/min; Est GFR (Non-African American) 28.4 ml/min; Magnesium 1.9 mg/dl (1.7-2.4); Phosphorus 1.9 mg/dl (2.5-4.9); Potassium 3.3 mmol/L (3.5-5.1)
[2023-11-10 17:57] LABS: Troponin I High Sensitivity 32.4 pg/ml (0-14)
[2023-11-10] MEDS ORDERED: POTASSIUM CHLORIDE CRTAB 20 MEQ TABCR PO STA ×2 (18:23→21:29)
[2023-11-10] MEDS: HEPARIN SOD 5,000 UNIT/0.5 ML VIAL SQ SCH ×2 (18:43→22:42)
[2023-11-10] MEDS ORDERED: PROMETHAZINE HCL 12.5 MG in SODIUM CHLORIDE 0.9% 50 ML IV PRN (19:03)
[2023-11-10] MEDS: ONDANSETRON INJ 2 MG/ML 2 ML VIAL IV PRN (19:19)
[2023-11-10] MEDS: POT PHOSPHATE MONOBASIC W/ SOD TAB PO SCH (19:50)
[2023-11-10] MEDS: TOPIRAMATE 100 MG TAB PO SCH (19:53)
[2023-11-10] MEDS: ATORVASTATIN 40 MG TAB PO SCH (19:54)
[2023-11-10] MEDS: SODIUM BICARBONATE 650 MG TAB PO SCH (19:54)
[2023-11-10] MEDS: CETIRIZINE HCL 10 MG TABLET PO SCH (19:54)
[2023-11-10] MEDS ORDERED: INSULIN ASPART PER UNIT CHARGE SC SCH (21:00)
[2023-11-10 21:28] LABS: Magnesium 1.9 mg/dl (1.7-2.4); Potassium 3.2 mmol/L (3.5-5.1)
[2023-11-10] MEDS ORDERED: POTASSIUM CHLORIDE CRTAB 20 MEQ TABCR PO SCH (21:29)
[2023-11-10 21:34] LABS: BUN Creatinine Ratio 14.9 (10-20); Est GFR (African American) 32.7 ml/min; Est GFR (Non-African American) 28.2 ml/min; Phosphorus 1.6 mg/dl (2.5-4.9)
[2023-11-10] MEDS: POTASSIUM CHLORIDE / WTR 10 MEQ/100 ML PLCT IV SCH (21:51)
[2023-11-11] MEDS: POTASSIUM CHLORIDE / WTR 10 MEQ/100 ML PLCT IV SCH (00:05)
[2023-11-11] MEDS: POTASSIUM CHLORIDE 20 MEQ in D5W AND LACTATED RINGERS 1,000 ML IV SCH ×2 (00:05→08:27)
[2023-11-11 01:37] LABS: BUN Creatinine Ratio 14.4 (10-20); Calcium 8.4 mg/dl (8.6-10.3); Creatinine Clr Calc Pharmacy 17.8 ml/min; Est GFR (African American) 34.6 ml/min; Est GFR (Non-African American) 29.8 ml/min; Magnesium 1.8 mg/dl (1.7-2.4); Phosphorus 1.8 mg/dl (2.5-4.9); Potassium 4.3 mmol/L (3.5-5.1); Troponin I High Sensitivity 34.6 pg/ml (0-14)
[2023-11-11] MEDS: ACETAMINOPHEN 325 MG TAB PO PRN ×2 (01:41→05:53)
[2023-11-11 03:54] LABS: Appearance Urine Clear (Clear); Bilirubin Urine Negative (Negative); Blood Urine Negative (Negative); Color Urine Yellow; Glucose Urine UA 3+ (Negative); Ketones Urine 1+ (Negative); Leukocyte Esterase Urine Negative (Negative); Nitrite Urine Negative (Negative); Protein Urine Negative (Negative); Specific Gravity Urine 1.011 (1.000-1.030); Urobilinogen Urine Negative (Negative)
[2023-11-11] MEDS ORDERED: LANTUS PER UNIT CHARGE SC ONE (04:00)
[2023-11-11 05:17] LABS: BUN Creatinine Ratio 12.9 (10-20); Calcium 8.8 mg/dl (8.6-10.3); Creatinine Clr Calc Pharmacy 17.5 ml/min; Est GFR (African American) 33.8 ml/min; Est GFR (Non-African American) 29.2 ml/min; Magnesium 1.9 mg/dl (1.7-2.4); Phosphorus 1.6 mg/dl (2.5-4.9); Potassium 4.7 mmol/L (3.5-5.1)
[2023-11-11] MEDS: LEVOTHYROXINE SODIUM 75 MCG TABLET PO SCH (05:55)
[2023-11-11] MEDS: HEPARIN SOD 5,000 UNIT/0.5 ML VIAL SQ SCH ×3 (05:55→20:53)
[2023-11-11] MEDS ORDERED: INSULIN ASPART PER UNIT CHARGE SC SCH (06:00)
[2023-11-11] MEDS: CHOLECALCIFEROL 1,000 UNITS 25 MCG TAB PO SCH (08:23)
[2023-11-11] MEDS: ASPIRIN 81 MG ECTAB PO SCH (08:23)
[2023-11-11] MEDS: amLODIPine BESYLATE 5 MG TAB PO SCH (08:24)
[2023-11-11] MEDS: POT PHOSPHATE MONOBASIC W/ SOD TAB PO SCH ×3 (08:24→17:18)
[2023-11-11] MEDS: FLUTICASONE/VILANTEROL 200/25MCG 14 PUFFS/INHALER INH SCH (08:25)
[2023-11-11] MEDS: SODIUM BICARBONATE 650 MG TAB PO SCH ×2 (08:26→20:55)
[2023-11-11] MEDS: ATENOLOL 50 MG TABLET PO SCH (08:26)
[2023-11-11] MEDS: CETIRIZINE HCL 10 MG TABLET PO SCH ×2 (08:26→20:56)
[2023-11-11] MEDS: TOPIRAMATE 100 MG TAB PO SCH ×2 (08:26→20:54)
[2023-11-11] MEDS: OXYBUTYNIN CHLORIDE XL 5 MG TABCR PO SCH (08:26)
[2023-11-11] MEDS: CALCIUM CARBONATE 1250MG TAB PO SCH (08:27)
[2023-11-11] MEDS: SERTRALINE HCL 50 MG TABLET PO SCH (08:27)
[2023-11-11 09:15] LABS: BUN Creatinine Ratio 12.2 (10-20); Calcium 8.9 mg/dl (8.6-10.3); Est GFR (African American) 37.5 ml/min; Est GFR (Non-African American) 32.4 ml/min; Magnesium 1.8 mg/dl (1.7-2.4); Phosphorus 1.6 mg/dl (2.5-4.9)
[2023-11-11] MEDS: INSULIN ASPART PER UNIT CHARGE SC SCH ×4 (09:24→20:53)
--- NOTE | 2023-11-11 10:43 | Gastrointestinal Consultation ---
Date of Consultation November 11, 2023 Assessment & Plan (1) Dysphagia: Pleasant lady with foreign body sensation in her esophagus but also has CT scan that shows "thickened gastric cardia". I can't tell if she is having dysphagia or if this is truly just foreign body sensation. I do think she needs EGD and possible dilatation but would like her metabolic acidosis cleared up. Will plan procedure for tomorrow. She agrees. History of Present Illness Reason for Consultation: dysphagia Attending Physician: Escobar Hernandez MD History of Present Illness 73 year old female admitted with "euglycemic DKA" who has been having the feeling of food caught in her throat since Wednesday. She says she can eat but it feels like the food only goes so far and then comes back up. She has been able to drink liquids with this but just feels it is difficult to get food down. She has never had this issue before. I was called about this issue earlier starting at breakfast but she says today is no different than any other day since last Wednesday. She has no pain with this. She doesn't have issues with heartburn. Her last EGD was ten years ago. Allergies Allergy/AdvReac Type Severity Reaction Status Date / Time baclofen Allergy Unknown Confusion Verified 11/10/23 11:48 lamotrigine Allergy Unknown UNKNOWN Verified 11/10/23 11:48 phenytoin Allergy Unknown UNSURE Verified 11/10/23 11:48 fentanyl AdvReac Severe MARKED Verified 11/10/23 11:48 CONFUSION W/ ABSENCE OF SEDATION midazolam AdvReac Severe MARKED Verified 11/10/23 11:48 CONFUSION W/ ABSENCE OF SEDATION Home Medications Medication Instructions Recorded Confirmed Type aspirin 81 mg tablet,delayed 81 mg PO QAM 07/01/18 11/10/23 History release (Aspir-) cetirizine 10 mg tablet 10 mg PO BID 05/25/19 11/10/23 History lancets 33 gauge (OneTouch Delica #100 ea 05/25/19 02/10/21 History Lancets) ondansetron HCl 4 mg tablet 4 mg PO Q6H PRN Nausea 05/25/19 11/10/23 History (Zofran) blood sugar diagnostic (OneTouch #200 ea 08/15/19 02/10/21 Rx Verio test strips) atorvastatin 40 mg tablet 40 mg PO HS #90 tabs 10/16/20 11/10/23 Rx albuterol sulfate 90 mcg/actuation 1 - 2 puff inhalation Q4H PRN 01/20/21 11/10/23 Rx aerosol inhaler Shortness Of Breath #18 grams omeprazole 20 mg capsule,delayed 20 mg PO DAILY PRN Acid Reflux 02/10/21 11/10/23 History release atenolol 50 mg tablet 50 mg PO QAM #90 tabs 04/08/22 11/10/23 Rx methocarbamol 500 mg tablet 500 mg PO BID PRN neck spasms 30 06/23/23 11/10/23 Rx days #60 tabs topiramate 200 mg tablet 200 mg PO BID 90 days #180 tabs 10/18/23 11/10/23 Rx amlodipine 10 mg tablet 10 mg PO QAM 11/10/23 11/10/23 History calcium carbonate 600 mg calcium 600 mg PO QAM 11/10/23 11/10/23 History (1,500 mg) tablet cholecalciferol (vitamin D3) 50 100 mcg PO DAILY 11/10/23 11/10/23 History mcg (2,000 unit) tablet empagliflozin 10 mg tablet 10 mg PO QAM 11/10/23 11/10/23 History (Jardiance) fluticasone furoate 200 1 inh inhalation QAM 11/10/23 11/10/23 History mcg-vilanterol 25 mcg/dose inhalation powder (Breo Ellipta) levothyroxine 75 mcg tablet 75 mcg PO QAM 11/10/23 11/10/23 History (Synthroid) lorazepam 1 mg tablet 0.5 - 1 mg PO DAILY PRN Anxiety 11/10/23 11/10/23 History oxybutynin chloride 10 mg 10 mg PO QAM 11/10/23 11/10/23 History tablet,extended release 24 hr semaglutide 0.25 mg or 0.5 mg (2 0.25 mg subcut WK 11/10/23 11/10/23 History mg/3 mL) subcutaneous pen injector (Ozempic) sertraline 25 mg tablet 25 mg PO QAM 11/10/23 11/10/23 History sodium bicarbonate 650 mg tablet 650 mg PO BID 11/10/23 11/10/23 History Patient History Medical History CKD (chronic kidney disease), stage IV Hyperactivity of bladder Insomnia Vitamin D deficiency Rosacea Postmenopausal atrophic vaginitis Osteoporosis Mild aortic regurgitation Hypothyroidism, postablative Diabetic nephropathy associated with type 2 diabetes mellitus Chronic sinusitis Chronic cerebral ischemia Asthma Anxiety disorder Anemia due to chronic kidney disease Allergic rhinitis Adhesive capsulitis of left shoulder Seizure disorder Dyslipidemia Hypertension Type 2 diabetes mellitus Hx of breast cancer (03/31/13) Cervical radiculopathy at C8 Surgical History H/O hysterectomy with oophorectomy Hx of lumpectomy RT History of hysterectomy History of colonoscopy History of tooth extraction History of cataract surgery History of cardiac cath 2013/NO STENTS Family History Mother Family history of diabetes mellitus Breast cancer Father Family history of diabetes mellitus Atrial fibrillation Cardiac disorder Depression Sister Cardiac disorder Social History Smoking Status: Never smoker Second Hand Exposure: No; Do You Dip or Chew Tobacco: No; Hx Alcohol Use: No Hx Substance Use: No Preferred Language: Ukrainian Communication Ability: Effective Visual Impairment: Partially Limited Hearing Ability: Normal Wincher Required: No Beliefs That Will Affect Care: None Current Living Situation: Family Current Living Situation Comment: LIVES WITH SON Feels Safe at Home: Yes Safety Concerns: Feels Safe At This Time Childhood Exposure to Second-Hand Smoke: Yes caffeine: Yes Dental Care, Regularly: Yes Physical Activity Frequency: Daily Seatbelt Use: always Sunscreen Use: Yes Assistive Devices: Glasses Review of Systems Review of Systems: All systems reviewed & are unremarkable except as noted in HPI & below Physical Exam Constitutional: WD/WN, vitals as above Neck: trachea midline, no thyromegaly Respiratory: normal respiratory effort, lungs clear to auscultation Cardiovascular: RRR, no murmur, no edema Gastrointestinal (Abdomen): normal bowel sounds, soft, nontender, no hepatosplenomegaly Results & Data Vital Signs (Past 12 Hours) Vital Signs Temp Pulse Pulse Resp BP BP Pulse Ox 11/11/23 07:57 75 11/11/23 07:21 36.6 C 78 18 146/75 H 98 11/11/23 04:22 36.8 C 74 17 179/66 H 100 11/10/23 23:25 37.0 C 78 16 155/66 H 96 O2 Del Method 11/11/23 07:57 11/11/23 07:21 Room Air 11/11/23 04:22 Room Air 11/10/23 23:25 Room Air Laboratory Results 11/11/23 11/11/23 11/11/23 Range/Units 08:28 07:18 05:53 PT (9.0-12.0) Seconds INR (0.9-1.1) VBG pH 7.38 (7.36-7.41) VBG pCO2 (38-50) mmHg VBG pO2 mmHg VBG HCO3 mmol/L VBG O2 Saturation % VBG Base Excess mEq/L Sodium 137 (136-145) mmol/L Potassium 5.0 (3.5-5.1) mmol/L Chloride 111 H (98-107) mmol/L Carbon Dioxide 17 L (21-32) mmol/L Anion Gap 9 (3-11) BUN 19 (6-23) mg/dl Creatinine 1.56 H (0.6-1.2) mg/dl Est Cr Clr Drug Dosing 19.0 ml/min Est GFR ( Amer) 37.5 ml/min Est GFR (Non-Af Amer) 32.4 ml/min BUN/Creatinine Ratio 12.2 (10-20) Glucose 162 H (70-99(Fasting)) mg/dl POC Glucose 134 H 118 H (70-99) mg/dl Calcium 8.9 (8.6-10.3) mg/dl Phosphorus 1.6 L (2.5-4.9) mg/dl Magnesium 1.8 (1.7-2.4) mg/dl Troponin I High Sens (0-14) pg/ml TSH (0.300-4.500) uIu/ml Urine Color Urine Appearance (Clear) Urine pH (4.5-7.5) Ur Specific [place] (1.000-1.030) Urine Protein (Negative) Urine Glucose (UA) (Negative) Urine Ketones (Negative) Urine Blood (Negative) Urine Nitrite (Negative) Urine Bilirubin (Negative) Urine Urobilinogen (Negative) Ur Leukocyte Esterase (Negative) Adenovirus (PCR) (NotDetected) B. pertussis DNA (PCR) (NotDetected) B.parapertussis DNA PCR (NotDetected) C. pneumoniae DNA (PCR) (NotDetected) Coronavirus OC43 (PCR) (NotDetected) Coronavirus HKU1 (PCR) (NotDetected) Coronavirus 229E (PCR) (NotDetected) SARS-CoV-2 (PCR) (NotDetected) Coronavirus NL63 (PCR) (NotDetected) Human Metapneumovir PCR (NotDetected) Influenza Type A (PCR) (NotDetected) Influenza Type B (PCR) (NotDetected) M. pneumoniae (PCR) (NotDetected) Parainfluenza 1 (PCR) (NotDetected) Parainfluenza 2 (PCR) (NotDetected) Parainfluenza 3 (PCR) (NotDetected) Parainfluenza 4 (PCR) (NotDetected) RSV (PCR) (NotDetected) Entero/Rhino (PCR) (NotDetected) 11/11/23 11/11/23 11/11/23 Range/Units 04:35 03:47 03:11 PT (9.0-12.0) Seconds INR (0.9-1.1) VBG pH 7.31 L (7.36-7.41) VBG pCO2 (38-50) mmHg VBG pO2 mmHg VBG HCO3 mmol/L VBG O2 Saturation % VBG Base Excess mEq/L Sodium 138 (136-145) mmol/L Potassium 4.7 (3.5-5.1) mmol/L Chloride 111 H (98-107) mmol/L Carbon Dioxide 18 L (21-32) mmol/L Anion Gap 9 (3-11) BUN 22 (6-23) mg/dl Creatinine 1.70 H (0.6-1.2) mg/dl Est Cr Clr Drug Dosing 17.5 ml/min Est GFR ( Amer) 33.8 ml/min Est GFR (Non-Af Amer) 29.2 ml/min BUN/Creatinine Ratio 12.9 (10-20) Glucose 105 H (70-99(Fasting)) mg/dl POC Glucose 99 (70-99) mg/dl Calcium 8.8 (8.6-10.3) mg/dl Phosphorus 1.6 L (2.5-4.9) mg/dl Magnesium 1.9 (1.7-2.4) mg/dl Troponin I High Sens (0-14) pg/ml TSH (0.300-4.500) uIu/ml Urine Color Yellow Urine Appearance Clear (Clear) Urine pH 6.0 (4.5-7.5) Ur Specific [place] 1.011 (1.000-1.030) Urine Protein Negative (Negative) Urine Glucose (UA) 3+ H (Negative) Urine Ketones 1+ H (Negative) Urine Blood Negative (Negative) Urine Nitrite Negative (Negative) Urine Bilirubin Negative (Negative) Urine Urobilinogen Negative (Negative) Ur Leukocyte Esterase Negative (Negative) Adenovirus (PCR) (NotDetected) B. pertussis DNA (PCR) (NotDetected) B.parapertussis DNA PCR (NotDetected) C. pneumoniae DNA (PCR) (NotDetected) Coronavirus OC43 (PCR) (NotDetected) Coronavirus HKU1 (PCR) (NotDetected) Coronavirus 229E (PCR) (NotDetected) SARS-CoV-2 (PCR) (NotDetected) Coronavirus NL63 (PCR) (NotDetected) Human Metapneumovir PCR (NotDetected) Influenza Type A (PCR) (NotDetected) Influenza Type B (PCR) (NotDetected) M. pneumoniae (PCR) (NotDetected) Parainfluenza 1 (PCR) (NotDetected) Parainfluenza 2 (PCR) (NotDetected) Parainfluenza 3 (PCR) (NotDetected) Parainfluenza 4 (PCR) (NotDetected) RSV (PCR) (NotDetected) Entero/Rhino (PCR) (NotDetected) 11/11/23 11/11/23 11/11/23 Range/Units 02:14 01:08 00:34 PT (9.0-12.0) Seconds INR (0.9-1.1) VBG pH 7.36 (7.36-7.41) VBG pCO2 (38-50) mmHg VBG pO2 mmHg VBG HCO3 mmol/L VBG O2 Saturation % VBG Base Excess mEq/L Sodium 135 L (136-145) mmol/L Potassium 4.3 D (3.5-5.1) mmol/L Chloride 109 H (98-107) mmol/L Carbon Dioxide 18 L (21-32) mmol/L Anion Gap 8 (3-11) BUN 24 H (6-23) mg/dl Creatinine 1.67 H (0.6-1.2) mg/dl Est Cr Clr Drug Dosing 17.8 ml/min Est GFR ( Amer) 34.6 ml/min Est GFR (Non-Af Amer) 29.8 ml/min BUN/Creatinine Ratio 14.4 (10-20) Glucose 156 H (70-99(Fasting)) mg/dl POC Glucose 127 H 127 H (70-99) mg/dl Calcium 8.4 L (8.6-10.3) mg/dl Phosphorus 1.8 L (2.5-4.9) mg/dl Magnesium 1.8 (1.7-2.4) mg/dl Troponin I High Sens 34.6 H (0-14) pg/ml TSH (0.300-4.500) uIu/ml Urine Color Urine Appearance (Clear) Urine pH (4.5-7.5) Ur Specific [place] (1.000-1.030) Urine Protein (Negative) Urine Glucose (UA) (Negative) Urine Ketones (Negative) Urine Blood (Negative) Urine Nitrite (Negative) Urine Bilirubin (Negative) Urine Urobilinogen (Negative) Ur Leukocyte Esterase (Negative) Adenovirus (PCR) (NotDetected) B. pertussis DNA (PCR) (NotDetected) B.parapertussis DNA PCR (NotDetected) C. pneumoniae DNA (PCR) (NotDetected) Coronavirus OC43 (PCR) (NotDetected) Coronavirus HKU1 (PCR) (NotDetected) Coronavirus 229E (PCR) (NotDetected) SARS-CoV-2 (PCR) (NotDetected) Coronavirus NL63 (PCR) (NotDetected) Human Metapneumovir PCR (NotDetected) Influenza Type A (PCR) (NotDetected) Influenza Type B (PCR) (NotDetected) M. pneumoniae (PCR) (NotDetected) Parainfluenza 1 (PCR) (NotDetected) Parainfluenza 2 (PCR) (NotDetected) Parainfluenza 3 (PCR) (NotDetected) Parainfluenza 4 (PCR) (NotDetected) RSV (PCR) (NotDetected) Entero/Rhino (PCR) (NotDetected) 11/11/23 11/10/23 11/10/23 Range/Units 00:13 23:06 22:08 PT (9.0-12.0) Seconds INR (0.9-1.1) VBG pH (7.36-7.41) VBG pCO2 (38-50) mmHg VBG pO2 mmHg VBG HCO3 mmol/L VBG O2 Saturation % VBG Base Excess mEq/L Sodium (136-145) mmol/L Potassium (3.5-5.1) mmol/L Chloride (98-107) mmol/L Carbon Dioxide (21-32) mmol/L Anion Gap (3-11) BUN (6-23) mg/dl Creatinine (0.6-1.2) mg/dl Est Cr Clr Drug Dosing ml/min Est GFR ( Amer) ml/min Est GFR (Non-Af Amer) ml/min BUN/Creatinine Ratio (10-20) Glucose (70-99(Fasting)) mg/dl POC Glucose 148 H 203 H 242 H (70-99) mg/dl Calcium (8.6-10.3) mg/dl Phosphorus (2.5-4.9) mg/dl Magnesium (1.7-2.4) mg/dl Troponin I High Sens (0-14) pg/ml TSH (0.300-4.500) uIu/ml Urine Color Urine Appearance (Clear) Urine pH (4.5-7.5) Ur Specific [place] (1.000-1.030) Urine Protein (Negative) Urine Glucose (UA) (Negative) Urine Ketones (Negative) Urine Blood (Negative) Urine Nitrite (Negative) Urine Bilirubin (Negative) Urine Urobilinogen (Negative) Ur Leukocyte Esterase (Negative) Adenovirus (PCR) (NotDetected) B. pertussis DNA (PCR) (NotDetected) B.parapertussis DNA PCR (NotDetected) C. pneumoniae DNA (PCR) (NotDetected) Coronavirus OC43 (PCR) (NotDetected) Coronavirus HKU1 (PCR) (NotDetected) Coronavirus 229E (PCR) (NotDetected) SARS-CoV-2 (PCR) (NotDetected) Coronavirus NL63 (PCR) (NotDetected) Human Metapneumovir PCR (NotDetected) Influenza Type A (PCR) (NotDetected) Influenza Type B (PCR) (NotDetected) M. pneumoniae (PCR) (NotDetected) Parainfluenza 1 (PCR) (NotDetected) Parainfluenza 2 (PCR) (NotDetected) Parainfluenza 3 (PCR) (NotDetected) Parainfluenza 4 (PCR) (NotDetected) RSV (PCR) (NotDetected) Entero/Rhino (PCR) (NotDetected) 11/10/23 11/10/23 11/10/23 Range/Units 21:29 21:01 20:29 PT (9.0-12.0) Seconds INR (0.9-1.1) VBG pH 7.33 L (7.36-7.41) VBG pCO2 (38-50) mmHg VBG pO2 mmHg VBG HCO3 mmol/L VBG O2 Saturation % VBG Base Excess mEq/L Sodium 137 (136-145) mmol/L Potassium 3.2 L (3.5-5.1) mmol/L Chloride 105 (98-107) mmol/L Carbon Dioxide 19 L (21-32) mmol/L Anion Gap 13 H (3-11) BUN 26 H (6-23) mg/dl Creatinine 1.75 H (0.6-1.2) mg/dl Est Cr Clr Drug Dosing 17.0 ml/min Est GFR ( Amer) 32.7 ml/min Est GFR (Non-Af Amer) 28.2 ml/min BUN/Creatinine Ratio 14.9 (10-20) Glucose 86 (70-99(Fasting)) mg/dl POC Glucose 64 L* 141 H (70-99) mg/dl Calcium 9.0 (8.6-10.3) mg/dl Phosphorus 1.6 L (2.5-4.9) mg/dl Magnesium 1.9 (1.7-2.4) mg/dl Troponin I High Sens (0-14) pg/ml TSH (0.300-4.500) uIu/ml Urine Color Urine Appearance (Clear) Urine pH (4.5-7.5) Ur Specific [place] (1.000-1.030) Urine Protein (Negative) Urine Glucose (UA) (Negative) Urine Ketones (Negative) Urine Blood (Negative) Urine Nitrite (Negative) Urine Bilirubin (Negative) Urine Urobilinogen (Negative) Ur Leukocyte Esterase (Negative) Adenovirus (PCR) (NotDetected) B. pertussis DNA (PCR) (NotDetected) B.parapertussis DNA PCR (NotDetected) C. pneumoniae DNA (PCR) (NotDetected) Coronavirus OC43 (PCR) (NotDetected) Coronavirus HKU1 (PCR) (NotDetected) Coronavirus 229E (PCR) (NotDetected) SARS-CoV-2 (PCR) (NotDetected) Coronavirus NL63 (PCR) (NotDetected) Human Metapneumovir PCR (NotDetected) Influenza Type A (PCR) (NotDetected) Influenza Type B (PCR) (NotDetected) M. pneumoniae (PCR) (NotDetected) Parainfluenza 1 (PCR) (NotDetected) Parainfluenza 2 (PCR) (NotDetected) Parainfluenza 3 (PCR) (NotDetected) Parainfluenza 4 (PCR) (NotDetected) RSV (PCR) (NotDetected) Entero/Rhino (PCR) (NotDetected) 11/10/23 11/10/23 11/10/23 Range/Units 19:33 18:36 17:37 PT (9.0-12.0) Seconds INR (0.9-1.1) VBG pH (7.36-7.41) VBG pCO2 (38-50) mmHg VBG pO2 mmHg VBG HCO3 mmol/L VBG O2 Saturation % VBG Base Excess mEq/L Sodium (136-145) mmol/L Potassium (3.5-5.1) mmol/L Chloride (98-107) mmol/L Carbon Dioxide (21-32) mmol/L Anion Gap (3-11) BUN (6-23) mg/dl Creatinine (0.6-1.2) mg/dl Est Cr Clr Drug Dosing ml/min Est GFR ( Amer) ml/min Est GFR (Non-Af Amer) ml/min BUN/Creatinine Ratio (10-20) Glucose (70-99(Fasting)) mg/dl POC Glucose 171 H 208 H 223 H (70-99) mg/dl Calcium (8.6-10.3) mg/dl Phosphorus (2.5-4.9) mg/dl Magnesium (1.7-2.4) mg/dl Troponin I High Sens (0-14) pg/ml TSH (0.300-4.500) uIu/ml Urine Color Urine Appearance (Clear) Urine pH (4.5-7.5) Ur Specific [place] (1.000-1.030) Urine Protein (Negative) Urine Glucose (UA) (Negative) Urine Ketones (Negative) Urine Blood (Negative) Urine Nitrite (Negative) Urine Bilirubin (Negative) Urine Urobilinogen (Negative) Ur Leukocyte Esterase (Negative) Adenovirus (PCR) (NotDetected) B. pertussis DNA (PCR) (NotDetected) B.parapertussis DNA PCR (NotDetected) C. pneumoniae DNA (PCR) (NotDetected) Coronavirus OC43 (PCR) (NotDetected) Coronavirus HKU1 (PCR) (NotDetected) Coronavirus 229E (PCR) (NotDetected) SARS-CoV-2 (PCR) (NotDetected) Coronavirus NL63 (PCR) (NotDetected) Human Metapneumovir PCR (NotDetected) Influenza Type A (PCR) (NotDetected) Influenza Type B (PCR) (NotDetected) M. pneumoniae (PCR) (NotDetected) Parainfluenza 1 (PCR) (NotDetected) Parainfluenza 2 (PCR) (NotDetected) Parainfluenza 3 (PCR) (NotDetected) Parainfluenza 4 (PCR) (NotDetected) RSV (PCR) (NotDetected) Entero/Rhino (PCR) (NotDetected) 11/10/23 11/10/23 11/10/23 Range/Units 17:09 16:23 15:24 PT (9.0-12.0) Seconds INR (0.9-1.1) VBG pH 7.27 L (7.36-7.41) VBG pCO2 (38-50) mmHg VBG pO2 mmHg VBG HCO3 mmol/L VBG O2 Saturation % VBG Base Excess mEq/L Sodium 136 (136-145) mmol/L Potassium 3.3 L (3.5-5.1) mmol/L Chloride 102 (98-107) mmol/L Carbon Dioxide 16 L (21-32) mmol/L Anion Gap 18 H (3-11) BUN 29 H (6-23) mg/dl Creatinine 1.74 H D (0.6-1.2) mg/dl Est Cr Clr Drug Dosing 17.1 ml/min Est GFR ( Amer) 32.9 ml/min Est GFR (Non-Af Amer) 28.4 ml/min BUN/Creatinine Ratio 16.7 (10-20) Glucose 245 H (70-99(Fasting)) mg/dl POC Glucose 234 H 134 H (70-99) mg/dl Calcium 8.4 L (8.6-10.3) mg/dl Phosphorus 1.9 L (2.5-4.9) mg/dl Magnesium 1.9 (1.7-2.4) mg/dl Troponin I High Sens 32.4 H (0-14) pg/ml TSH (0.300-4.500) uIu/ml Urine Color Urine Appearance (Clear) Urine pH (4.5-7.5) Ur Specific [place] (1.000-1.030) Urine Protein (Negative) Urine Glucose (UA) (Negative) Urine Ketones (Negative) Urine Blood (Negative) Urine Nitrite (Negative) Urine Bilirubin (Negative) Urine Urobilinogen (Negative) Ur Leukocyte Esterase (Negative) Adenovirus (PCR) (NotDetected) B. pertussis DNA (PCR) (NotDetected) B.parapertussis DNA PCR (NotDetected) C. pneumoniae DNA (PCR) (NotDetected) Coronavirus OC43 (PCR) (NotDetected) Coronavirus HKU1 (PCR) (NotDetected) Coronavirus 229E (PCR) (NotDetected) SARS-CoV-2 (PCR) (NotDetected) Coronavirus NL63 (PCR) (NotDetected) Human Metapneumovir PCR (NotDetected) Influenza Type A (PCR) (NotDetected) Influenza Type B (PCR) (NotDetected) M. pneumoniae (PCR) (NotDetected) Parainfluenza 1 (PCR) (NotDetected) Parainfluenza 2 (PCR) (NotDetected) Parainfluenza 3 (PCR) (NotDetected) Parainfluenza 4 (PCR) (NotDetected) RSV (PCR) (NotDetected) Entero/Rhino (PCR) (NotDetected) 11/10/23 11/10/23 11/10/23 Range/Units 14:16 12:55 12:06 PT (9.0-12.0) Seconds INR (0.9-1.1) VBG pH 7.19 L (7.36-7.41) VBG pCO2 37 L (38-50) mmHg VBG pO2 < 20 mmHg VBG HCO3 14 mmol/L VBG O2 Saturation < 60.0 % VBG Base Excess -13.3 mEq/L Sodium (136-145) mmol/L Potassium (3.5-5.1) mmol/L Chloride (98-107) mmol/L Carbon Dioxide (21-32) mmol/L Anion Gap (3-11) BUN (6-23) mg/dl Creatinine (0.6-1.2) mg/dl Est Cr Clr Drug Dosing ml/min Est GFR ( Amer) ml/min Est GFR (Non-Af Amer) ml/min BUN/Creatinine Ratio (10-20) Glucose (70-99(Fasting)) mg/dl POC Glucose 107 H 117 H (70-99) mg/dl Calcium (8.6-10.3) mg/dl Phosphorus (2.5-4.9) mg/dl Magnesium (1.7-2.4) mg/dl Troponin I High Sens (0-14) pg/ml TSH (0.300-4.500) uIu/ml Urine Color Urine Appearance (Clear) Urine pH (4.5-7.5) Ur Specific [place] (1.000-1.030) Urine Protein (Negative) Urine Glucose (UA) (Negative) Urine Ketones (Negative) Urine Blood (Negative) Urine Nitrite (Negative) Urine Bilirubin (Negative) Urine Urobilinogen (Negative) Ur Leukocyte Esterase (Negative) Adenovirus (PCR) (NotDetected) B. pertussis DNA (PCR) (NotDetected) B.parapertussis DNA PCR (NotDetected) C. pneumoniae DNA (PCR) (NotDetected) Coronavirus OC43 (PCR) (NotDetected) Coronavirus HKU1 (PCR) (NotDetected) Coronavirus 229E (PCR) (NotDetected) SARS-CoV-2 (PCR) (NotDetected) Coronavirus NL63 (PCR) (NotDetected) Human Metapneumovir PCR (NotDetected) Influenza Type A (PCR) (NotDetected) Influenza Type B (PCR) (NotDetected) M. pneumoniae (PCR) (NotDetected) Parainfluenza 1 (PCR) (NotDetected) Parainfluenza 2 (PCR) (NotDetected) Parainfluenza 3 (PCR) (NotDetected) Parainfluenza 4 (PCR) (NotDetected) RSV (PCR) (NotDetected) Entero/Rhino (PCR) (NotDetected) 11/10/23 11/10/23 11/10/23 Range/Units 11:58 09:55 09:50 PT 10.9 (9.0-12.0) Seconds INR 1.0 (0.9-1.1) VBG pH (7.36-7.41) VBG pCO2 (38-50) mmHg VBG pO2 mmHg VBG HCO3 mmol/L VBG O2 Saturation % VBG Base Excess mEq/L Sodium (136-145) mmol/L Potassium (3.5-5.1) mmol/L Chloride (98-107) mmol/L Carbon Dioxide (21-32) mmol/L Anion Gap (3-11) BUN (6-23) mg/dl Creatinine (0.6-1.2) mg/dl Est Cr Clr Drug Dosing ml/min Est GFR ( Amer) ml/min Est GFR (Non-Af Amer) ml/min BUN/Creatinine Ratio (10-20) Glucose (70-99(Fasting)) mg/dl POC Glucose (70-99) mg/dl Calcium (8.6-10.3) mg/dl Phosphorus (2.5-4.9) mg/dl Magnesium (1.7-2.4) mg/dl Troponin I High Sens 28.4 H (0-14) pg/ml TSH 3.188 (0.300-4.500) uIu/ml Urine Color Urine Appearance (Clear) Urine pH (4.5-7.5) Ur Specific [place] (1.000-1.030) Urine Protein (Negative) Urine Glucose (UA) (Negative) Urine Ketones (Negative) Urine Blood (Negative) Urine Nitrite (Negative) Urine Bilirubin (Negative) Urine Urobilinogen (Negative) Ur Leukocyte Esterase (Negative) Adenovirus (PCR) Not Detected (NotDetected) B. pertussis DNA (PCR) Not Detected (NotDetected) B.parapertussis DNA PCR Not Detected (NotDetected) C. pneumoniae DNA (PCR) Not Detected (NotDetected) Coronavirus OC43 (PCR) Not Detected (NotDetected) Coronavirus HKU1 (PCR) Not Detected (NotDetected) Coronavirus 229E (PCR) Not Detected (NotDetected) SARS-CoV-2 (PCR) Not Detected (NotDetected) Coronavirus NL63 (PCR) Not Detected (NotDetected) Human Metapneumovir PCR Not Detected (NotDetected) Influenza Type A (PCR) Not Detected (NotDetected) Influenza Type B (PCR) Not Detected (NotDetected) M. pneumoniae (PCR) Not Detected (NotDetected) Parainfluenza 1 (PCR) Not Detected (NotDetected) Parainfluenza 2 (PCR) Not Detected (NotDetected) Parainfluenza 3 (PCR) Not Detected (NotDetected) Parainfluenza 4 (PCR) Not Detected (NotDetected) RSV (PCR) Not Detected (NotDetected) Entero/Rhino (PCR) Not Detected (NotDetected) Diagnostic Findings Chest X-Ray 11/10/23 09:46 XR chest 1V portable CLINICAL HISTORY: weakness, abdominal pain COMPARISON STUDY: Chest radiograph August 08, 2019. Chest CT September 24, 2014. FINDINGS: Lung volumes are normal. Lungs are clear. There is no pneumothorax or pleural effusion. Cardiac size is normal. Mediastinal contours are normal. There is no evidence for pulmonary edema. IMPRESSION: No acute cardiopulmonary findings. ACT 112: Negative or not required by law. Electronically signed by: Raj Green M.D. 11/10/2023 10:23 AM Abdomen/Pelvis CT 11/10/23 09:47 CT OF THE ABDOMEN AND PELVIS WITHOUT CONTRAST CLINICAL HISTORY: Abdominal pain, vomiting and constipation. COMPARISON STUDY: CT of the abdomen and pelvis February 24, 2018. TECHNIQUE: Axial images of the abdomen and pelvis were obtained without IV contrast. Images were reviewed in the axial, sagittal, and coronal planes. Automated exposure control was utilized for the study. A dose lowering technique was utilized adhering to the principles of ALARA. FINDINGS: A 5 mm left lower lobe pulmonary nodule is similar to CT of February 24, 2018. This is benign given stability. No pneumatosis, free air or portal venous gas is present. There are no renal, ureteral or bladder calculi. There is no hydronephrosis or hydroureter. Evaluation of the remainder of the abdomen and pelvis is suboptimal on this unenhanced exam. 6 mm lateral segment hepatic lesion is suboptimally assessed on this unenhanced exam but probably reflects a cyst. Spleen, adrenal glands and pancreas are unremarkable. There is no biliary or pancreatic ductal dilatation. No peripancreatic or pericholecystic infiltration is present. Stomach is mildly distended and fluid-filled. There is apparent wall thickening of the gastric cardia shown on axial image 43 of 305. There is no evidence for a bowel obstruction. A moderate amount of stool within the colon is noted. There is no stool within the rectum. There is no lymphadenopathy. No fluid collection is present. There is no ascites. No suspicious lesions within the visualized skeletal structures are present. The appendix is normal. IMPRESSION: 1. No evidence for a bowel obstruction. Moderate amount of stool within the colon. No stool within the rectum. Normal appendix. 2. Apparent wall thickening of the gastric cardia. This is probably artifactual. However, gastritis or an underlying mucosal lesion cannot be excluded. GI consultation for consideration for nonemergent upper endoscopy is recommended. 3. No urinary calculi or hydronephrosis. ACT 112: Positive. There are findings on this exam that require communication between the performing entity and the patient following Patient Test Result Information Act ([place] Act 112) guidelines. Electronically signed by: Raj Green M.D. 11/10/2023 10:58 AM
[2023-11-11] MEDS: hydrALAZINE HCL 20 MG/ML VIAL IV PRN (12:52)
[2023-11-11 13:05] LABS: BUN Creatinine Ratio 10.8 (10-20); Calcium 9.2 mg/dl (8.6-10.3); Creatinine Clr Calc Pharmacy 20.1 ml/min; Est GFR (Non-African American) 34.5 ml/min; Magnesium 1.8 mg/dl (1.7-2.4); Potassium 4.8 mmol/L (3.5-5.1)
[2023-11-11] MEDS: ONDANSETRON INJ 2 MG/ML 2 ML VIAL IV PRN (13:29)
--- NOTE | 2023-11-11 13:40 | Pharmacy Report ---
Pharmacy Glycemic Short Note 2 - Date of Service November 11, 2023 - Glycemic Short BSG Results (Last 24 hours): 11/10/23 11/10/23 11/10/23 14:16 15:24 16:23 Glucose POC Glucose 107 H 134 H 234 H 11/10/23 11/10/23 11/10/23 17:09 17:37 18:36 Glucose 245 H POC Glucose 223 H 208 H 11/10/23 11/10/23 11/10/23 19:33 20:29 21:01 Glucose 86 POC Glucose 171 H 141 H 11/10/23 11/10/23 11/10/23 21:29 22:08 23:06 Glucose POC Glucose 64 L* 242 H 203 H 11/11/23 11/11/23 11/11/23 00:13 00:34 01:08 Glucose 156 H POC Glucose 148 H 127 H 11/11/23 11/11/23 11/11/23 02:14 03:47 04:35 Glucose 105 H POC Glucose 127 H 99 11/11/23 11/11/23 11/11/23 05:53 07:18 08:28 Glucose 162 H POC Glucose 118 H 134 H 11/11/23 11/11/23 11:01 12:15 Glucose 175 H POC Glucose 177 H OUTPATIENT ANTIDIABETIC REGIMEN: * Jardiance 10 mg PO daily * Ozempic 0.25 mg SC every Wednesday * HbA1c: 8.3% (09/09/23 - [facility]) ASSESSMENT: 11/11: * BSGs largely within goal the last 24h. Insulin drip was transitioned to SQ early this AM (AG-9, HCO3-18) . Received 10 units of Lantus X 1 ~ 0400. * Diet ordered/fluids discontinued this afternoon, however not currently tolerating PO. Plan for EGD tomorrow so will be NPO again. * Hold additional basal for today. Novolog q4 with a severe stress scale. Will reassess basal tomorrow. 11/10: * 73 yo F admitted on 11/10/23 secondary to euglycemic DKA. Pharmacy has been consulted to assist with inpatient glycemic management. Patient is a Type 2 diabetic as an outpatient. Please refer to outpatient regimen and most recent HbA1c above. * Initial labs showed a BSG of 141 with AG 25, CO2 15, and pH 7.19. SCr is 2.07 mg/dL. * Per provider patient is to be started on insulin drip at 0.05 units/kg/hr which is 2.4 units/hr. RN is not to titrate this order and provider should be contacted for BSGs below 110 mg/dL or above 180 mg/dL (goal range). D10 is infusing as well at 125 mL/hr. * No repeat labs as of yet. Will monitor. * Possible transition later this evening if acidosis resolves. PLAN FOR INPATIENT GLYCEMIC CONTROL: * Hold outpatient oral diabetes medication and GLP1-RA * Basal insulin * Lantus 10 units SQ X 1 * Bolus insulin - * NovoLog per scale ACHS or Q6hrs while NPO * Goal Range: Low 110 mg/dL - High 140 mg/dL * Correction Factor: 35 mg/dL/unit * Nutritional / Prandial insulin per carb ratio of 1 unit per 11 grams CHO consumed
--- NOTE | 2023-11-11 13:43 | Hospitalist Progress Note ---
Date of Service November 11, 2023 Assessment & Plan (1) Dysphagia: (2) Hypertensive urgency: (3) DKA (diabetic ketoacidosis): Plan 73-year-old lady with PMH of T2DM, HLD, hypothyroidism, HTN, CKD stage IV, seizure disorder, breast cancer presented to the ED 11/10 for evaluation of headache, nausea, vomiting. Patient reports having nausea, vomiting for about 6 days [employer], has not been able to swallow pills and solid food [has food sticking sensation in her esophagus] for about the same duration. She is being managed for the following: Diabetic ketoacidosis Uncontrolled T2DM Patient presenting with reports of nausea and vomiting Admitting labs suggestive of anion gap acidosis, urinary ketones positive. She has been on Jardiance since 06/23 and Ozempic since about 2 weeks ago [employer] A1c of 8.3 on 09/2023 Status post DKA protocol, bridged with long-acting on 11/11 am. Anion gap closed, acidosis resolved. bottom finisher consult. Follow-up with diabetic clinic closely upon discharge. SSI while inpatient, glycemic pharmacy on board, appreciate recs. Hypertensive urgency: Admitting blood pressure 218/117. Longstanding history of uncontrolled hypertension with CKD stage IV Continue home amlodipine, atenolol. As needed IV blood pressure medications. Abnormal CT of the abdomen: Dysphagia: Admitting CT ABD/pelvis showing apparent wall thickening of the gastric cardia. This is probably artifactual. However, gastritis or an underlying mucosal lesion cannot be excluded. Patient also complains of dysphagia and pills getting stuck in her chest for about 6 days [employer] GI consult, plan for scope tomorrow. N.p.o. midnight. Other chronic medical conditions: Continue with/resume home meds as and when able. Complex partial seizure: Chronic, stable. Continue Topamax. CKD stage IV: Baseline creatinine high oneslow twos. Creatinine is stable. Continue bicarbonate tablets. Asthma: Chronic, stable. No signs of acute exacerbation. Continue home inhalers. Depression: Chronic, stable. Continue home meds. DVT prophylaxis: Heparin subcu Full code Admission and Anticipated Discharge Date Admission Date: November 10, 2023 Subjective Patient was seen and examined at bedside. Patient was lying in bed, on room air, NAD. Patient reports improvement in her nausea and vomiting. Patient never had upper abdominal pain. Patient does have sensation of food sticking in her esophagus, and has been having difficulty swallowing since about 6 days [employer]. Patient reports being constipated lately. Physical Exam Physical Exam: GENERAL: Alert and oriented x3. NAD, on RA. HEENT: No pallor, no icterus. Pupils equal, round and reactive to light. Oral mucosa moist. NECK: No JVD, no neck masses. HEART: S1 and S2 heard. Regular rate and rhythm. No murmur, no gallop. RESPIRATORY SYSTEM: Normal AP diameter. No accessory muscle use. No wheezing, no crackles. ABDOMEN: Soft, bowel sounds present, nontender, no distention. CENTRAL NERVOUS SYSTEM: No facial droop. Speech is clear. Obeys simple commands. Moves extremities. EXTREMITIES: No edema, no erythema seen. Results & Data Results & Data Vital Signs (Past 12 Hours) Vital Signs Temp Pulse Pulse Resp BP BP Pulse Ox 11/11/23 11:18 36.7 C 78 17 197/81 H 99 11/11/23 07:57 75 11/11/23 07:21 36.6 C 78 18 146/75 H 98 11/11/23 04:22 36.8 C 74 17 179/66 H 100 O2 Del Method 11/11/23 11:18 Room Air 11/11/23 07:57 11/11/23 07:21 Room Air 11/11/23 04:22 Room Air (3) DKA (diabetic ketoacidosis) Diabetes mellitus complication detail: without coma Diabetes mellitus type: type 2 Qualified Code(s): E11.10 - Type 2 diabetes mellitus with ketoacidosis without coma
[2023-11-11] MEDS: ATORVASTATIN 40 MG TAB PO SCH (20:56)
[2023-11-11] MEDS ORDERED: ACETAMINOPHEN 1,000 MG/100 ML VIAL IV PRN (21:14)
[2023-11-11] MEDS ORDERED: hydrALAZINE HCL 20 MG/ML VIAL IV STA (21:31)
--- NOTE | 2023-11-11 22:41 | CT Scan Report ---
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 TECHNIQUE: Axial computed tomography images of the head/brain without intravenous contrast. CTDI is 18.24 mGy and DLP is 547.75 mGy-cm. Automated exposure control was utilized for the study. A dose lowering technique was utilized adhering to the principles of ALARA. COMPARISON: No relevant prior studies available. FINDINGS: No acute intracranial hemorrhage. No midline shift or mass effect. The [place]-white matter differentiation is maintained throughout. Age-related cerebral volume loss. Periventricular and subcortical white matter hypoattenuation, consistent with chronic microangiopathy. The visualized orbits appear grossly unremarkable. The calvarium is intact. The visualized paranasal sinuses and mastoid air cells are grossly clear. IMPRESSION: No acute intracranial hemorrhage, midline shift, or mass effect. Electronically signed by: Toribio Rodriguez MD 11/11/23 22:41 PM
[2023-11-12] MEDS: INSULIN ASPART PER UNIT CHARGE SC SCH ×4 (00:10→11:55)
[2023-11-12] MEDS: LEVOTHYROXINE SODIUM 75 MCG TABLET PO SCH (05:10)
[2023-11-12 06:10] LABS: Hematocrit (blood only) 43.3 % (37.0-47.0); Hemoglobin 14.5 g/dl (12.0-16.0); Mean Corpuscular Hemoglobin 30.7 pg (25.0-34.0); Mean Corpuscular Hgb Conc 33.5 g/dL (32.0-36.0); Mean Corpuscular Volume 91.7 fL (80.0-100.0); Mean Platelet Volume 11.5 fL (9.4-12.4); Platelet Count 200 K/uL (130-400); RDW Coefficient of Variation 12.8 % (11.5-14.5); Red Blood Count 4.72 M/uL (4.20-5.40); White Blood Count 8.74 K/ul (4.8-10.8)
[2023-11-12] MEDS: hydrALAZINE HCL 20 MG/ML VIAL IV PRN (06:30)
[2023-11-12 06:33] LABS: Calcium 9.1 mg/dl (8.6-10.3); Magnesium 1.8 mg/dl (1.7-2.4); Potassium 3.6 mmol/L (3.5-5.1)
[2023-11-12 06:38] LABS: Creatinine Clr Calc Pharmacy 19.2 ml/min; Est GFR (African American) 37.8 ml/min; Est GFR (Non-African American) 32.6 ml/min; Phosphorus 3.1 mg/dl (2.5-4.9)
[2023-11-12] MEDS: HEPARIN SOD 5,000 UNIT/0.5 ML VIAL SQ SCH ×2 (07:00→20:21)
[2023-11-12] MEDS ORDERED: LANTUS PER UNIT CHARGE SC ONE (08:00)
[2023-11-12] MEDS ORDERED: METOPROLOL TARTRATE 1 MG/ML VIAL IV PRN (08:17)
[2023-11-12] MEDS: FLUTICASONE/VILANTEROL 200/25MCG 14 PUFFS/INHALER INH SCH (08:52)
[2023-11-12] MEDS: OXYBUTYNIN CHLORIDE XL 5 MG TABCR PO SCH (08:53)
[2023-11-12] MEDS: TOPIRAMATE 100 MG TAB PO SCH ×2 (08:54→20:21)
[2023-11-12] MEDS: SERTRALINE HCL 50 MG TABLET PO SCH (08:54)
[2023-11-12] MEDS: amLODIPine BESYLATE 5 MG TAB PO SCH (08:54)
[2023-11-12] MEDS: CETIRIZINE HCL 10 MG TABLET PO SCH ×2 (08:54→20:22)
[2023-11-12] MEDS: SODIUM BICARBONATE 650 MG TAB PO SCH ×2 (08:54→20:22)
[2023-11-12] MEDS: CHOLECALCIFEROL 1,000 UNITS 25 MCG TAB PO SCH (08:54)
[2023-11-12] MEDS: ATENOLOL 50 MG TABLET PO SCH (08:54)
[2023-11-12] MEDS: CALCIUM CARBONATE 1250MG TAB PO SCH (08:55)
[2023-11-12] MEDS: ASPIRIN 81 MG ECTAB PO SCH (08:55)
[2023-11-12] MEDS: ACETAMINOPHEN 10MG/ML Custom 700 MG in EMPTY BAG 0 ML IV PRN (09:11)
--- NOTE | 2023-11-12 11:14 | Anesthesiology Consultation ---
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 Isidoro Chaudhry Jr, MD Height/Weight Height: 4 ft 6 in Weight: 48.1 kg Allergies Allergy/AdvReac Type Severity Reaction Status Date / Time baclofen Allergy Unknown Confusion Verified 11/10/23 11:48 lamotrigine Allergy Unknown UNKNOWN Verified 11/10/23 11:48 phenytoin Allergy Unknown UNSURE Verified 11/10/23 11:48 fentanyl AdvReac Severe MARKED Verified 11/10/23 11:48 CONFUSION W/ ABSENCE OF SEDATION midazolam AdvReac Severe MARKED Verified 11/10/23 11:48 CONFUSION W/ ABSENCE OF SEDATION Medications Home Medications Medication Instructions Recorded Confirmed Last Taken aspirin 81 mg tablet,delayed 81 mg PO QAM 07/01/18 11/10/23 11/10/23 release (Aspir-) cetirizine 10 mg tablet 10 mg PO BID 05/25/19 11/10/23 11/10/23 lancets 33 gauge (OneTouch Delica #100 ea 05/25/19 02/10/21 Unknown Lancets) ondansetron HCl 4 mg tablet 4 mg PO Q6H PRN Nausea 05/25/19 11/10/23 Unknown (Zofran) blood sugar diagnostic (OneTouch #200 ea 08/15/19 02/10/21 Unknown Verio test strips) atorvastatin 40 mg tablet 40 mg PO HS #90 tabs 10/16/20 11/10/23 11/09/23 albuterol sulfate 90 mcg/actuation 1 - 2 puff inhalation Q4H PRN 01/20/21 11/10/23 Unknown aerosol inhaler Shortness Of Breath #18 grams omeprazole 20 mg capsule,delayed 20 mg PO DAILY PRN Acid Reflux 02/10/21 11/10/23 Unknown release atenolol 50 mg tablet 50 mg PO QAM #90 tabs 04/08/22 11/10/23 11/10/23 methocarbamol 500 mg tablet 500 mg PO BID PRN neck spasms 30 06/23/23 11/10/23 Unknown days #60 tabs topiramate 200 mg tablet 200 mg PO BID 90 days #180 tabs 10/18/23 11/10/23 11/10/23 amlodipine 10 mg tablet 10 mg PO QAM 11/10/23 11/10/23 11/10/23 calcium carbonate 600 mg calcium 600 mg PO QAM 11/10/23 11/10/23 11/10/23 (1,500 mg) tablet cholecalciferol (vitamin D3) 50 100 mcg PO DAILY 11/10/23 11/10/23 Unknown mcg (2,000 unit) tablet empagliflozin 10 mg tablet 10 mg PO QAM 11/10/23 11/10/23 11/10/23 (Jardiance) fluticasone furoate 200 1 inh inhalation QA 11/10/23 11/10/23 11/10/23 mcg-vilanterol 25 mcg/dose inhalation powder (Breo Ellipta) levothyroxine 75 mcg tablet 75 mcg PO QA 11/10/23 11/10/23 11/10/23 (Synthroid) lorazepam 1 mg tablet 0.5 - 1 mg PO DAILY PRN Anxiety 11/10/23 11/10/23 Unknown oxybutynin chloride 10 mg 10 mg PO QA 11/10/23 11/10/23 11/10/23 tablet,extended release 24 hr semaglutide 0.25 mg or 0.5 mg (2 0.25 mg subcut WK 11/10/23 11/10/23 11/07/23 mg/3 mL) subcutaneous pen injector (Ozempic) sertraline 25 mg tablet 25 mg PO QAM 11/10/23 11/10/23 11/10/23 sodium bicarbonate 650 mg tablet 650 mg PO BID 11/10/23 11/10/23 11/10/23 Active Medications Generic Name Dose Route Start Last Admin Trade Name Freq PRN Reason Stop Dose Admin Acetaminophen 650 mg 11/10/23 16:15 11/11/23 05:53 Acetaminophen 325 Mg Tab PO 12/10/23 16:14 650 mg Q4H PRN Administration Pain or Fever Amlodipine Besylate 10 mg 11/11/23 09:00 11/12/23 08:54 Amlodipine Besylate 5 Mg Tab PO 12/11/23 08:59 10 mg QAM CARTER Administration Aspirin 81 mg 11/11/23 09:00 11/12/23 08:55 Aspirin 81 Mg Ectab PO 12/11/23 08:59 Not Given QAM CARTER Atenolol 50 mg 11/11/23 09:00 11/12/23 08:54 Atenolol 50 Mg Tablet PO 12/11/23 08:59 50 mg QAM CARTER Administration Atorvastatin Calcium 40 mg 11/10/23 21:00 11/11/23 20:56 Atorvastatin 40 Mg Tab PO 12/10/23 20:59 40 mg HS CARTER Administration Calcium Carbonate 1,250 mg 11/11/23 09:00 11/12/23 08:55 Calcium Carbonate 1250mg Tab PO 12/11/23 08:59 Not Given QAM CARTER Cetirizine HCl 10 mg 11/10/23 21:00 11/12/23 08:54 Cetirizine Hcl 10 Mg Tablet PO 12/10/23 20:59 Not Given BID CARTER Dextrose 25 - 50 ml 11/10/23 16:00 11/10/23 21:40 Dextrose 50% 50 Ml Syringe IV 12/10/23 15:59 50 ml UD PRN Administration Hypoglycemia Protocol Protocol Fluticasone/Vilanterol 1 puffs 11/11/23 09:00 11/12/23 08:52 Fluticasone/Vilanterol 200/25mcg 14 Puffs/Inhaler INH 12/11/23 08:59 1 puffs QAM CARTER Administration Hydralazine HCl 5 mg 11/11/23 12:12 11/12/23 06:30 Hydralazine Hcl 20 Mg/Ml Vial IV 12/11/23 12:11 5 mg Q6H PRN Administration Hypertension Acetaminophen 700 mg/ EMPTY 70 mls @ 400 mls/hr 11/11/23 21:30 11/12/23 09:26 BAG IV 12/11/23 21:29 Infused Q6H PRN Infusion Pain/Fever Protocol Insulin Aspart 0 units 11/11/23 16:00 11/12/23 07:26 Insulin Aspart Per Unit Charge SC 12/11/23 08:59 Not Given Q4 CARTER Levothyroxine Sodium 75 mcg 11/11/23 06:30 11/12/23 05:10 Levothyroxine Sodium 75 Mcg Tablet PO 12/11/23 06:29 75 mcg DAILYBB CARTER Administration Ondansetron HCl 4 mg 11/10/23 19:02 11/11/23 13:29 Ondansetron Inj 2 Mg/Ml 2 Ml Vial IV 12/10/23 19:01 4 mg Q6H PRN Administration Nausea And Vomiting Oxybutynin Chloride 10 mg 11/11/23 09:00 11/12/23 08:53 Oxybutynin Chloride Xl 5 Mg Tabcr PO 12/11/23 08:59 10 mg QAM CARTER Administration Sertraline HCl 25 mg 11/11/23 09:00 11/12/23 08:54 Sertraline Hcl 50 Mg Tablet PO 12/11/23 08:59 Not Given QAM CARTER Sodium Bicarbonate 650 mg 11/10/23 21:00 11/12/23 08:54 Sodium Bicarbonate 650 Mg Tab PO 12/10/23 20:59 Not Given BID CARTER Topiramate 200 mg 11/10/23 21:00 11/12/23 08:54 Topiramate 100 Mg Tab PO 12/10/23 20:59 200 mg BID CARTER Administration Vitamin D 4,000 units 11/11/23 09:00 11/12/23 08:54 Cholecalciferol 1,000 Units 25 Mcg Tab PO 12/11/23 08:59 Not Given DAILY CARTER Past Medical History Medical History CKD (chronic kidney disease), stage IV Hyperactivity of bladder Insomnia Vitamin D deficiency Rosacea Postmenopausal atrophic vaginitis Osteoporosis Mild aortic regurgitation Hypothyroidism, postablative Diabetic nephropathy associated with type 2 diabetes mellitus Chronic sinusitis Chronic cerebral ischemia Asthma Anxiety disorder Anemia due to chronic kidney disease Allergic rhinitis Adhesive capsulitis of left shoulder Seizure disorder Dyslipidemia Hypertension Type 2 diabetes mellitus Hx of breast cancer (03/31/13) Cervical radiculopathy at C8 Past Family History Family History Mother Family history of diabetes mellitus Breast cancer Father Family history of diabetes mellitus Atrial fibrillation Cardiac disorder Depression Sister Cardiac disorder Past Surgical History Surgical History H/O hysterectomy with oophorectomy Hx of lumpectomy RT History of hysterectomy History of colonoscopy History of tooth extraction History of cataract surgery History of cardiac cath 2013/NO STENTS Social History Smoking Status: Never smoker Do You Dip or Chew Tobacco: No Hx Alcohol Use: No Hx Substance Use: No substance use type: does not use Physical Exam Vital Signs Last Vital Signs Temp 36.8 C 11/12/23 11:00 Pulse 88 11/12/23 11:00 Resp 18 11/12/23 11:00 BP 144/79 H 11/12/23 11:00 Pulse Ox 97 11/12/23 11:00 O2 Del Method Room Air 11/12/23 11:00 Testing Laboratory Results 11/12/23 05:26 11/12/23 05:26 PT 10.9 Seconds (9.0-12.0) 11/10/23 09:50 INR 1.0 (0.9-1.1) 11/10/23 09:50 Urine Color Yellow 11/11/23 03:11 Urine Appearance Clear (Clear) 11/11/23 03:11 Urine pH 6.0 (4.5-7.5) 11/11/23 03:11 Ur Specific [place]be 1.011 (1.000-1.030) 11/11/23 03:11 Urine Protein Negative (Negative) 11/11/23 03:11 Urine Glucose (UA) 3+ (Negative) H 11/11/23 03:11 Urine Ketones 1+ (Negative) H 11/11/23 03:11 Urine Nitrite Negative (Negative) 11/11/23 03:11 Ur Leukocyte Esterase Negative (Negative) 11/11/23 03:11 11/12/23 11/12/23 11/12/23 07:17 05:05 00:05 POC Glucose 126 H 107 H 110 H Electrocardiogram Date: 11/10/23 Blood Pressure : / mmHG Vent. Rate : 061 BPM Atrial Rate : 000 BPM P-R Int : 000 ms QRS Dur : 064 ms QT Int : 486 ms P-R-T Axes : 000 037 -13 degrees QTc Int : 489 ms Poor data quality, interpretation may be adversely affected Sinus rhythm Possible Old Septal infarct (cited on or before 10-NOV-2023) Nonspecific ST and T wave abnormality Inferior leads Abnormal ECG When compared with ECG of 10-NOV-2023 09:41, No significant change Confirmed by Herber Zayas ([id number]) on 11/10/2023 1:56:39 PM Chest X-Ray Date: 11/10/23 XR chest 1V portable CLINICAL HISTORY: weakness, abdominal pain COMPARISON STUDY: Chest radiograph August 08, 2019. Chest CT September 24, 2014. FINDINGS: Lung volumes are normal. Lungs are clear. There is no pneumothorax or pleural effusion. Cardiac size is normal. Mediastinal contours are normal. There is no evidence for pulmonary edema. IMPRESSION: No acute cardiopulmonary findings. Echocardiogram Date: 11/11/23 EF: 65-70 LV Function: normal RWMA: + none Other Findings: + LVH (mod) Valvular Disease: + no significant valvular disease
--- NOTE | 2023-11-12 12:02 | Pharmacy Report ---
Pharmacy Glycemic Short Note 2 - Date of Service November 12, 2023 - Glycemic Short BSG Results (Last 24 hours): 11/11/23 11/11/23 11/11/23 12:15 16:36 20:51 Glucose 175 H POC Glucose 114 H 109 H 11/12/23 11/12/23 11/12/23 00:05 05:05 05:26 Glucose 127 H POC Glucose 110 H 107 H 11/12/23 11/12/23 07:17 11:11 Glucose POC Glucose 126 H 98 OUTPATIENT ANTIDIABETIC REGIMEN: * Jardiance 10 mg PO daily * Ozempic 0.25 mg SC every Wednesday * HbA1c: 8.3% (09/09/23 - [facility]) ASSESSMENT: 11/12: * BSGs within goal the last 24h: [phone]/dL. Received 10 units of basal and 2 units of bolus insulin yesterday. * No documented PO intake since coming off of the drip. Now NPO for EGD later today. * Half dose Lantus given this AM. Will add an HS scale depending on BSG in the e vent she is ordered a diet this evening and BSGs climb. Novolog q6 while NPO with a loosened carb ratio given prolonged NPO (once diet resumed). 11/11: * BSGs largely within goal the last 24h. Insulin drip was transitioned to SQ early this AM (AG-9, HCO3-18) . Received 10 units of Lantus X 1 ~ 0400. * Diet ordered/fluids discontinued this afternoon, however not currently tolerating PO. Plan for EGD tomorrow so will be NPO again. * Hold additional basal for today. Novolog q4 with a severe stress scale. Will reassess basal tomorrow. 11/10: * 73 yo F admitted on 11/10/23 secondary to euglycemic DKA. Pharmacy has been consulted to assist with inpatient glycemic management. Patient is a Type 2 diabetic as an outpatient. Please refer to outpatient regimen and most recent HbA1c above. * Initial labs showed a BSG of 141 with AG 25, CO2 15, and pH 7.19. SCr is 2.07 mg/dL. * Per provider patient is to be started on insulin drip at 0.05 units/kg/hr which is 2.4 units/hr. RN is not to titrate this order and provider should be contacted for BSGs below 110 mg/dL or above 180 mg/dL (goal range). D10 is infusing as well at 125 mL/hr. * No repeat labs as of yet. Will monitor. * Possible transition later this evening if acidosis resolves. PLAN FOR INPATIENT GLYCEMIC CONTROL: * Hold outpatient oral diabetes medication and GLP1-RA * Basal insulin * Lantus 5 units SQ X 1 this AM + HS scale * Bolus insulin - * NovoLog per scale ACHS or Q6hrs while NPO * Goal Range: Low 110 mg/dL - High 140 mg/dL * Correction Factor: 35 mg/dL/unit * Nutritional / Prandial insulin per carb ratio of 1 unit per 13 grams CHO consumed
[2023-11-12] MEDS ORDERED: HEPARIN SOD 5,000 UNIT/0.5 ML VIAL SQ SCH (14:00)
--- NOTE | 2023-11-12 14:22 | Gastroenterology Progress Note ---
Date of Service November 12, 2023 Assessment & Plan (1) Dysphagia: Plan: If patient is able to go home will do procedure as an outpatient but otherwise will do on Wednesday as per Dr. Marrero with anesthesiology Admission and Anticipated Discharge Date Admission Date: November 10, 2023 Subjective Feeling better today. Able to swallow "one pill at a time" but more than that and feels like they stick. Some food went down without a problem today. Discussion with anesthesia prior to procedure the timing of her last dose of ozempic at home dictates that we are unable to do procedure until Wednesday. Physical Exam Physical Exam: She looks well Constitutional: WD/WN, vitals as above Results & Data Vital Signs (Past 12 Hours) Vital Signs Temp Pulse Pulse Resp BP Pulse Ox O2 Del Method 11/12/23 11:00 36.8 C 88 18 144/79 H 97 Room Air 11/12/23 08:00 36.8 C 74 20 152/80 H 99 Room Air 11/12/23 07:09 55 L 11/12/23 06:26 36.5 C 69 18 181/104 H 98 Room Air
--- NOTE | 2023-11-12 16:30 | Hospitalist Progress Note ---
Date of Service November 12, 2023 Assessment & Plan (1) Dysphagia: (2) Hypertensive urgency: (3) DKA (diabetic ketoacidosis): Plan 73-year-old lady with PMH of T2DM, HLD, hypothyroidism, HTN, CKD stage IV, seizure disorder, breast cancer presented to the ED 11/10 for evaluation of headache, nausea, vomiting. 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 She is being managed for the following: Diabetic ketoacidosis Uncontrolled T2DM Patient presenting with reports of nausea and vomiting Admitting labs suggestive of anion gap acidosis, urinary ketones positive. She has been on Jardiance since 06/23 and Ozempic since about 2 weeks ago EDUCATIONAL TECHNOLOGY COORDINATOR A1c of 8.3 on 09/2023 Status post DKA protocol, bridged with long-acting on 11/11 am. Anion gap closed, acidosis resolved. primary special educator consult. Appreciate eval and recs. DC Jardiance (given euglycemic DKA) and Ozempic (given normal body weight, already poor appetite and constipation). Consider tradjenta or low dose januvia. Follow-up with diabetic clinic closely upon discharge. SSI while inpatient, glycemic pharmacy on board, appreciate recs. Hypertensive urgency: Admitting blood pressure 218/117. Longstanding history of uncontrolled hypertension with CKD stage IV Continue home amlodipine, atenolol. as able As needed IV blood pressure medications. Abnormal CT of the abdomen: Dysphagia: Admitting CT ABD/pelvis showing apparent wall thickening of the gastric cardia. This is probably artifactual. However, gastritis or an underlying mucosal lesion cannot be excluded. Patient also complains of dysphagia and pills getting stuck in her chest for about 6 days EDUCATIONAL TECHNOLOGY COORDINATOR GI consult, plan for scope wednesday or as OP. Will start soft diet, if patient can tolerate and feels like she can go home, will dc or else plan for scope on wednesday. Other chronic medical conditions: Continue with/resume home meds as and when able. Complex partial seizure: Chronic, stable. Continue Topamax. CKD stage IV: Baseline creatinine high oneslow twos. Creatinine is stable. Continue bicarbonate tablets. Asthma: Chronic, stable. No signs of acute exacerbation. Continue home inhalers. Depression: Chronic, stable. Continue home meds. DVT prophylaxis: Heparin subcu Full code Admission and Anticipated Discharge Date Admission Date: November 10, 2023 Subjective Patient was seen and examined at bedside. Patient was lying in bed, on room air, NAD. Patient reports improvement in her nausea and vomiting. Patient never had upper abdominal pain. Patient does have sensation of food sticking in her esophagus, and has been having difficulty swallowing since about 6 days EDUCATIONAL TECHNOLOGY COORDINATOR. slightly improved today. Patient reports moving bowel. Physical Exam Physical Exam: GENERAL: Alert and oriented x3. NAD, on RA. HEENT: No pallor, no icterus. Pupils equal, round and reactive to light. Oral mucosa moist. NECK: No JVD, no neck masses. HEART: S1 and S2 heard. Regular rate and rhythm. No murmur, no gallop. RESPIRATORY SYSTEM: Normal AP diameter. No accessory muscle use. No wheezing, no crackles. ABDOMEN: Soft, bowel sounds present, nontender, no distention. CENTRAL NERVOUS SYSTEM: No facial droop. Speech is clear. Obeys simple commands. Moves extremities. EXTREMITIES: No edema, no erythema seen. Results & Data Results & Data Vital Signs (Past 12 Hours) Vital Signs Temp Pulse Pulse Resp BP Pulse Ox O2 Del Method 11/12/23 15:00 36.7 C 90 18 151/70 H 98 Room Air 11/12/23 11:00 36.8 C 88 18 144/79 H 97 Room Air 11/12/23 08:00 36.8 C 74 20 152/80 H 99 Room Air 11/12/23 07:09 55 L 11/12/23 06:26 36.5 C 69 18 181/104 H 98 Room Air (3) DKA (diabetic ketoacidosis) Diabetes mellitus complication detail: without coma Diabetes mellitus type: type 2 Qualified Code(s): E11.10 - Type 2 diabetes mellitus with ketoacidosis without coma
[2023-11-12] MEDS ORDERED: INSULIN ASPART PER UNIT CHARGE SC SCH ×2 (18:00→23:15)
[2023-11-12] MEDS: ATORVASTATIN 40 MG TAB PO SCH (20:22)
[2023-11-12] MEDS ORDERED: LANTUS PER UNIT CHARGE SC SCH (21:00)
[2023-11-13] MEDS: LEVOTHYROXINE SODIUM 75 MCG TABLET PO SCH (05:33)
[2023-11-13 06:11] LABS: BUN Creatinine Ratio 11.2 (10-20); Calcium 8.9 mg/dl (8.6-10.3); Creatinine Clr Calc Pharmacy 16.1 ml/min; Est GFR (Non-African American) 25.9 ml/min; Magnesium 1.9 mg/dl (1.7-2.4); Phosphorus 3.3 mg/dl (2.5-4.9); Potassium 3.9 mmol/L (3.5-5.1)
[2023-11-13] MEDS: INSULIN ASPART PER UNIT CHARGE SC SCH ×4 (08:18→18:42)
[2023-11-13] MEDS: TOPIRAMATE 100 MG TAB PO SCH ×2 (08:19→20:41)
[2023-11-13] MEDS: FLUTICASONE/VILANTEROL 200/25MCG 14 PUFFS/INHALER INH SCH (08:19)
[2023-11-13] MEDS: SERTRALINE HCL 50 MG TABLET PO SCH (08:20)
[2023-11-13] MEDS: ASPIRIN 81 MG ECTAB PO SCH (08:20)
[2023-11-13] MEDS: OXYBUTYNIN CHLORIDE XL 5 MG TABCR PO SCH (08:21)
[2023-11-13] MEDS: amLODIPine BESYLATE 5 MG TAB PO SCH (08:21)
[2023-11-13] MEDS: ATENOLOL 50 MG TABLET PO SCH (08:21)
[2023-11-13] MEDS: CALCIUM CARBONATE 1250MG TAB PO SCH (08:22)
[2023-11-13] MEDS: SODIUM BICARBONATE 650 MG TAB PO SCH ×2 (08:22→20:41)
[2023-11-13] MEDS: CHOLECALCIFEROL 1,000 UNITS 25 MCG TAB PO SCH (08:22)
[2023-11-13] MEDS: CETIRIZINE HCL 10 MG TABLET PO SCH ×2 (08:22→20:41)
[2023-11-13] MEDS: HEPARIN SOD 5,000 UNIT/0.5 ML VIAL SQ SCH ×2 (08:29→20:42)
[2023-11-13] MEDS ORDERED: LANTUS PER UNIT CHARGE SC SCH (09:00)
--- NOTE | 2023-11-13 12:47 | Hospitalist Progress Note ---
Date of Service November 13, 2023 Assessment & Plan (1) Dysphagia: (2) Hypertensive urgency: (3) DKA (diabetic ketoacidosis): Plan 73-year-old lady with PMH of T2DM, HLD, hypothyroidism, HTN, CKD stage IV, seizure disorder, breast cancer presented to the ED 11/10 for evaluation of headache, nausea, vomiting. 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 She is being managed for the following: Diabetic ketoacidosis Uncontrolled T2DM Patient presenting with reports of nausea and vomiting Admitting labs suggestive of anion gap acidosis, urinary ketones positive. 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 Anion gap closed, acidosis resolved. clinical informatics educator consult. Appreciate eval and recs. DC Jardiance (given euglycemic DKA) and Ozempic (given normal body weight, already poor appetite and constipation). Consider tradjenta or low dose januvia. Pt reports no issues w/ glyburide and prandin in the past; reports she was changed to current meds supposedly for better outcome/lower side effects. d/w patient, made her aware the need to dc her ozempic and jardiance. D/w her regarding starting januvia; if not possible then she states she is ok w/ going back to prandin. Follow-up with diabetic clinic closely upon discharge. SSI while inpatient, glycemic pharmacy on board, appreciate recs. Hypertensive urgency: Admitting blood pressure 218/117. Longstanding history of uncontrolled hypertension with CKD stage IV Continue home amlodipine, atenolol. as able As needed IV blood pressure medications. Abnormal CT of the abdomen: Dysphagia: Admitting CT ABD/pelvis showing apparent wall thickening of the gastric cardia. This is probably artifactual. However, gastritis or an underlying mucosal lesion cannot be excluded. Patient also complains of dysphagia and pills getting stuck in her chest for about 6 days INSTRUMENT LENS INSPECTOR GI consult, plan for scope wednesday, pt is not comfortable due to ongoing swallowing difficulty. Pt started on soft diet, reports taking mashed eggs on pudding. Other chronic medical conditions: Continue with/resume home meds as and when able. Complex partial seizure: Chronic, stable. Continue Topamax. CKD stage IV: Baseline creatinine high oneslow twos. Creatinine is stable. Continue bicarbonate tablets. Asthma: Chronic, stable. No signs of acute exacerbation. Continue home inhalers. Depression: Chronic, stable. Continue home meds. DVT prophylaxis: Heparin subcu Full code Admission and Anticipated Discharge Date Admission Date: November 10, 2023 Subjective Patient was seen and examined at bedside. Patient was lying in bed, on room air, NAD. Patient reports no nausea and vomiting. Reports slow improvement in the dysphagia symptoms; has not vomited food or meds but is not comfortable w/ her current status and hence would like to stay until Wednesday for scope. Patient reports moving bowel. Physical Exam Physical Exam: GENERAL: Alert and oriented x3. NAD, on RA. HEENT: No pallor, no icterus. Pupils equal, round and reactive to light. Oral mucosa moist. NECK: No JVD, no neck masses. HEART: S1 and S2 heard. Regular rate and rhythm. No murmur, no gallop. RESPIRATORY SYSTEM: Normal AP diameter. No accessory muscle use. No wheezing, no crackles. ABDOMEN: Soft, bowel sounds present, nontender, no distention. CENTRAL NERVOUS SYSTEM: No facial droop. Speech is clear. Obeys simple commands. Moves extremities. EXTREMITIES: No edema, no erythema seen. Results & Data Results & Data Vital Signs (Past 12 Hours) Vital Signs Temp Pulse Pulse Resp BP Pulse Ox O2 Del Method 11/13/23 10:37 36.7 C 71 17 144/86 H 93 Room Air 11/13/23 07:30 68 11/13/23 07:16 37.3 C 70 19 143/89 H 96 Room Air 11/13/23 03:00 36.7 C 71 18 180/78 H 96 Room Air (3) DKA (diabetic ketoacidosis) Diabetes mellitus complication detail: without coma Diabetes mellitus type: type 2 Qualified Code(s): E11.10 - Type 2 diabetes mellitus with ketoacidosis without coma
[2023-11-13] MEDS: ONDANSETRON INJ 2 MG/ML 2 ML VIAL IV PRN (15:34)
[2023-11-13] MEDS: LACTATED RINGER'S 1,000 ML IV SCH (16:11)
--- NOTE | 2023-11-13 16:22 | XRay Report ---
KUB CLINICAL HISTORY: Generalized abdominal pain. FINDINGS: 2 AP supine abdominal radiographs are correlated with abdominal CT dated 11/10/2023. There i s a nonobstructed abdominal bowel gas pattern. Moderate fecal retention is seen throughout the colon. No evidence of intraperitoneal free air is identified on these supine images. There are no abnormal abdominal calcifications. Phleboliths are seen in the pelvis. The skeletal structures are osteopenic and appear intact. Mild to moderate lumbosacral spondylosis is noted. IMPRESSION: No acute abnormality is identified. Electronically signed by: Caden Calderon M.D. 11/13/2023 4:20 PM
[2023-11-13] MEDS: ACETAMINOPHEN 10MG/ML Custom 700 MG in EMPTY BAG 0 ML IV PRN (16:40)
[2023-11-13] MEDS: PANTOprazole 40 MG in SYRINGE 0 ML IV SCH ×2 (16:40→20:41)
[2023-11-13] MEDS: ATORVASTATIN 40 MG TAB PO SCH (20:41)
[2023-11-14] MEDS: INSULIN ASPART PER UNIT CHARGE SC SCH ×4 (00:13→19:11)
[2023-11-14] MEDS: LEVOTHYROXINE SODIUM 75 MCG TABLET PO SCH (05:51)
[2023-11-14 07:31] LABS: Hematocrit (blood only) 41.6 % (37.0-47.0); Hemoglobin 13.7 g/dl (12.0-16.0); Mean Corpuscular Hemoglobin 30.9 pg (25.0-34.0); Mean Corpuscular Hgb Conc 32.9 g/dL (32.0-36.0); Mean Corpuscular Volume 93.7 fL (80.0-100.0); Mean Platelet Volume 11.4 fL (9.4-12.4); Platelet Count 165 K/uL (130-400); RDW Coefficient of Variation 12.7 % (11.5-14.5); RDW Standard Deviation 43.8 fL (36.4-46.3); Red Blood Count 4.44 M/uL (4.20-5.40); White Blood Count 9.04 K/ul (4.8-10.8)
[2023-11-14 07:52] LABS: BUN Creatinine Ratio 13.4 (10-20); Creatinine Clr Calc Pharmacy 17.2 ml/min; Est GFR (African American) 31.8 ml/min; Est GFR (Non-African American) 27.4 ml/min; Magnesium 1.8 mg/dl (1.7-2.4); Phosphorus 3.6 mg/dl (2.5-4.9); Potassium 3.9 mmol/L (3.5-5.1)
[2023-11-14] MEDS: ASPIRIN 81 MG ECTAB PO SCH (07:56)
[2023-11-14] MEDS: CALCIUM CARBONATE 1250MG TAB PO SCH (07:57)
[2023-11-14] MEDS: SERTRALINE HCL 50 MG TABLET PO SCH (07:57)
[2023-11-14] MEDS: CETIRIZINE HCL 10 MG TABLET PO SCH ×2 (07:58→20:25)
[2023-11-14] MEDS: CHOLECALCIFEROL 1,000 UNITS 25 MCG TAB PO SCH (07:59)
[2023-11-14] MEDS: OXYBUTYNIN CHLORIDE XL 5 MG TABCR PO SCH (08:00)
[2023-11-14] MEDS: SODIUM BICARBONATE 650 MG TAB PO SCH ×2 (08:01→20:24)
[2023-11-14] MEDS: TOPIRAMATE 100 MG TAB PO SCH ×2 (08:01→20:27)
[2023-11-14] MEDS: amLODIPine BESYLATE 5 MG TAB PO SCH (08:03)
[2023-11-14] MEDS: FLUTICASONE/VILANTEROL 200/25MCG 14 PUFFS/INHALER INH SCH (08:05)
[2023-11-14] MEDS: HEPARIN SOD 5,000 UNIT/0.5 ML VIAL SQ SCH ×2 (08:05→20:26)
[2023-11-14] MEDS: PANTOprazole 40 MG in SYRINGE 0 ML IV SCH ×2 (08:06→20:24)
[2023-11-14] MEDS: ATENOLOL 50 MG TABLET PO SCH (08:06)
[2023-11-14] MEDS: LACTATED RINGER'S 1,000 ML IV SCH (08:08)
[2023-11-14 08:18] LABS: Calcium 8.8 mg/dl (8.6-10.3)
--- NOTE | 2023-11-14 11:07 | Gastroenterology Progress Note ---
Date of Service November 14, 2023 Assessment & Plan (1) Dysphagia: Plan: Will plan procedure for tomorrow. She is happy Admission and Anticipated Discharge Date Admission Date: November 10, 2023 Subjective Tough day yesterday but feeling good today. Said pain went from chest down to her lower stomach. KUB normal Physical Exam Physical Exam: She looks well Constitutional: WD/WN, vitals as above Results & Data Vital Signs (Past 12 Hours) Vital Signs Temp Pulse Pulse Resp BP BP Pulse Ox 11/14/23 09:10 56 L 11/14/23 07:28 36.4 C L 68 16 152/70 H 97 11/14/23 03:00 36.9 C 69 16 150/78 H 97 O2 Del Method 11/14/23 09:10 11/14/23 07:28 Room Air 11/14/23 03:00 Room Air
--- NOTE | 2023-11-14 12:35 | Pharmacy Report ---
Pharmacy Glycemic Short Note 2 - Date of Service November 14, 2023 - Glycemic Short BSG Results (Last 24 hours): 11/13/23 11/14/23 11/14/23 18:10 00:13 07:20 Glucose 125 H POC Glucose 168 H 103 H 11/14/23 11/14/23 07:49 12:23 Glucose POC Glucose 106 H 92 OUTPATIENT ANTIDIABETIC REGIMEN: * Jardiance 10 mg PO daily * Ozempic 0.25 mg SC every Wednesday * HbA1c: 8.3% (09/09/23 - [facility]) ASSESSMENT: 11/14: * Poppy received 8 units of insulin yesterday, 5 basal + 3 bolus. BSGs were: [phone] mg/dL. * Fasting BSG is below goal at 106 mg/dL. Patient has been NPO since admission. Plan is for EGD tomorrow. Will hold off on any basal insulin moving forward until patient starts to eat. No change to Novolog. 11/12: * BSGs within goal the last 24h: [phone]/dL. Received 10 units of basal and 2 units of bolus insulin yesterday. * No documented PO intake since coming off of the drip. Now NPO for EGD later today. * Half dose Lantus given this AM. Will add an HS scale depending on BSG in the event she is ordered a diet this evening and BSGs climb. Novolog q6 while NPO with a loosened carb ratio given prolonged NPO (once diet resumed). 11/11: * BSGs largely within goal the last 24h. Insulin drip was transitioned to SQ early this AM (AG-9, HCO3-18) . Received 10 units of Lantus X 1 ~ 0400. * Diet ordered/fluids discontinued this afternoon, however not currently tolerating PO. Plan for EGD tomorrow so will be NPO again. * Hold additional basal for today. Novolog q4 with a severe stress scale. Will reassess basal tomorrow. 11/10: * 73 yo F admitted on 11/10/23 secondary to euglycemic DKA. Pharmacy has been consulted to assist with inpatient glycemic management. Patient is a Type 2 diabetic as an outpatient. Please refer to outpatient regimen and most recent HbA1c above. * Initial labs showed a BSG of 141 with AG 25, CO2 15, and pH 7.19. SCr is 2.07 mg/dL. * Per provider patient is to be started on insulin drip at 0.05 units/kg/hr which is 2.4 units/hr. RN is not to titrate this order and provider should be contacted for BSGs below 110 mg/dL or above 180 mg/dL (goal range). D10 is infusing as well at 125 mL/hr. * No repeat labs as of yet. Will monitor. * Possible transition later this evening if acidosis resolves. PLAN FOR INPATIENT GLYCEMIC CONTROL: * Hold outpatient oral diabetes medication and GLP1-RA * Basal insulin * NONE * Bolus insulin - * NovoLog per scale ACHS or Q6hrs while NPO * Goal Range: Low 110 mg/dL - High 140 mg/dL * Correction Factor: 35 mg/dL/unit * Nutritional / Prandial insulin per carb ratio of 1 unit per 13 grams CHO consumed
--- NOTE | 2023-11-14 15:48 | Hospitalist Progress Note ---
Date of Service November 14, 2023 Assessment & Plan (1) Dysphagia: (2) Hypertensive urgency: (3) DKA (diabetic ketoacidosis): Plan 73-year-old lady with PMH of T2DM, HLD, hypothyroidism, HTN, CKD stage IV, seizure disorder, breast cancer presented to the ED 11/10 for evaluation of headache, nausea, vomiting. 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 She is being managed for the following: Diabetic ketoacidosis Uncontrolled T2DM Patient presenting with reports of nausea and vomiting Admitting labs suggestive of anion gap acidosis, urinary ketones positive. 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 Anion gap closed, acidosis resolved. clinical staff educator consult. Appreciate eval and recs. DC Jardiance (given euglycemic DKA) and Ozempic (given normal body weight, already poor appetite and constipation). Consider tradjenta or low dose januvia. Pt reports no issues w/ glyburide and prandin in the past; reports she was changed to current meds supposedly for better outcome/lower side effects. d/w patient, made her aware the need to dc her ozempic and jardiance. D/w her regarding starting januvia; if not possible then she states she is ok w/ going back to prandin. Follow-up with diabetic clinic closely upon discharge. SSI while inpatient, glycemic pharmacy on board, appreciate recs. Hypertensive urgency: Admitting blood pressure 218/117. Longstanding history of uncontrolled hypertension with CKD stage IV Continue home amlodipine, atenolol. as able As needed IV blood pressure medications. Abnormal CT of the abdomen: Dysphagia: Admitting CT ABD/pelvis showing apparent wall thickening of the gastric cardia. This is probably artifactual. However, gastritis or an underlying mucosal lesion cannot be excluded. 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 Pt had vomiting x 2 on 11/13; PPI started, KUB was normal, will start clears today/adv to full/NPO midnight for scope justa. Other chronic medical conditions: Continue with/resume home meds as and when able. Complex partial seizure: Chronic, stable. Continue Topamax. CKD stage IV: Baseline creatinine high oneslow twos. Creatinine is stable. Continue bicarbonate tablets. Asthma: Chronic, stable. No signs of acute exacerbation. Continue home inhalers. Depression: Chronic, stable. Continue home meds. DVT prophylaxis: Heparin subcu - hold in after night dose for scope in AM. Full code Admission and Anticipated Discharge Date Admission Date: November 10, 2023 Subjective Patient was seen and examined at bedside. Patient was lying in bed, on room air, NAD. Patient reports no nausea and vomiting after 2 episodes of vomiting yesterday afternoon associated with belly pain, KUB was normal. Patient would like to try diet today, will start on clear liquid diet can advance up to full liquid. N.p.o. midnight for scope tomorrow. Patient reports moving bowel. Physical Exam Physical Exam: GENERAL: Alert and oriented x3. NAD, on RA. HEENT: No pallor, no icterus. Pupils equal, round and reactive to light. Oral mucosa moist. NECK: No JVD, no neck masses. HEART: S1 and S2 heard. Regular rate and rhythm. No murmur, no gallop. RESPIRATORY SYSTEM: Normal AP diameter. No accessory muscle use. No wheezing, no crackles. ABDOMEN: Soft, bowel sounds present, nontender, no distention. CENTRAL NERVOUS SYSTEM: No facial droop. Speech is clear. Obeys simple commands. Moves extremities. EXTREMITIES: No edema, no erythema seen. Results & Data Results & Data Vital Signs (Past 12 Hours) Vital Signs Temp Pulse Pulse Resp BP Pulse Ox O2 Del Method 11/14/23 15:36 36.6 C 65 17 119/72 97 Room Air 11/14/23 11:34 36.7 C 73 16 117/68 97 Room Air 11/14/23 09:10 56 L 11/14/23 07:28 36.4 C L 68 16 152/70 H 97 Room Air (3) DKA (diabetic ketoacidosis) Diabetes mellitus complication detail: without coma Diabetes mellitus type: type 2 Qualified Code(s): E11.10 - Type 2 diabetes mellitus with ketoacidosis without coma
[2023-11-14] MEDS: ATORVASTATIN 40 MG TAB PO SCH (20:25)
[2023-11-15] MEDS: INSULIN ASPART PER UNIT CHARGE SC SCH ×4 (02:11→16:59)
[2023-11-15 06:08] LABS: Hematocrit (blood only) 36.4 % (37.0-47.0); Hemoglobin 12.4 g/dl (12.0-16.0); Mean Corpuscular Hemoglobin 31.7 pg (25.0-34.0); Mean Corpuscular Hgb Conc 34.1 g/dL (32.0-36.0); Mean Corpuscular Volume 93.1 fL (80.0-100.0); Mean Platelet Volume 11.8 fL (9.4-12.4); Platelet Count 164 K/uL (130-400); RDW Coefficient of Variation 12.7 % (11.5-14.5); RDW Standard Deviation 43.3 fL (36.4-46.3); Red Blood Count 3.91 M/uL (4.20-5.40); White Blood Count 6.44 K/ul (4.8-10.8)
[2023-11-15 06:21] LABS: Calcium 8.7 mg/dl (8.6-10.3); Est GFR (African American) 35.3 ml/min; Est GFR (Non-African American) 30.5 ml/min; Magnesium 1.6 mg/dl (1.7-2.4); Phosphorus 2.8 mg/dl (2.5-4.9); Potassium 3.6 mmol/L (3.5-5.1)
[2023-11-15] MEDS: LEVOTHYROXINE SODIUM 75 MCG TABLET PO SCH (06:41)
[2023-11-15] MEDS: PANTOprazole 40 MG in SYRINGE 0 ML IV SCH ×2 (08:14→20:44)
[2023-11-15] MEDS: MAGNESIUM SULFATE / D5W 1 GM/100 ML BAG IV SCH ×2 (08:14→11:48)
[2023-11-15] MEDS: FLUTICASONE/VILANTEROL 200/25MCG 14 PUFFS/INHALER INH SCH (08:14)
[2023-11-15] MEDS: TOPIRAMATE 100 MG TAB PO SCH ×2 (08:15→20:44)
[2023-11-15] MEDS: OXYBUTYNIN CHLORIDE XL 5 MG TABCR PO SCH (08:15)
[2023-11-15] MEDS: ATENOLOL 50 MG TABLET PO SCH (08:16)
[2023-11-15] MEDS: SERTRALINE HCL 50 MG TABLET PO SCH (08:16)
[2023-11-15] MEDS: amLODIPine BESYLATE 5 MG TAB PO SCH (08:17)
--- NOTE | 2023-11-15 08:56 | History & Physical Report ---
Date of Service November 15, 2023 Assessment & Plan (1) Dysphagia: Plan: Pleasant woman who needs EGD with possible dilatation. Procedure and risks discussed. She agrees Admission and Anticipated Discharge Date Admission Date: November 10, 2023 History of Present Illness Chief Complaint: dysphagia Primary Care Provider: Bozena De DO 73 year old with "dysphagia" or feeling of food stuck in throat. CT showed "thickened" gastric fundus. She is here for EGD. Allergies Allergy/AdvReac Type Severity Reaction Status Date / Time baclofen Allergy Unknown Confusion Verified 11/15/23 08:54 lamotrigine Allergy Unknown UNKNOWN Verified 11/15/23 08:54 phenytoin Allergy Unknown UNSURE Verified 11/15/23 08:54 fentanyl AdvReac Severe MARKED Verified 11/15/23 08:54 CONFUSION W/ ABSENCE OF SEDATION midazolam AdvReac Severe MARKED Verified 11/15/23 08:54 CONFUSION W/ ABSENCE OF SEDATION Home Medications Medication Instructions Recorded Confirmed Type aspirin 81 mg tablet,delayed 81 mg PO QAM 07/01/18 11/10/23 History release (Aspir-) cetirizine 10 mg tablet 10 mg PO BID 05/25/19 11/10/23 History lancets 33 gauge (OneTouch Delica #100 ea 05/25/19 02/10/21 History Lancets) ondansetron HCl 4 mg tablet 4 mg PO Q6H PRN Nausea 05/25/19 11/10/23 History (Zofran) blood sugar diagnostic (OneTouch #200 ea 08/15/19 02/10/21 Rx Verio test strips) atorvastatin 40 mg tablet 40 mg PO HS #90 tabs 10/16/20 11/10/23 Rx albuterol sulfate 90 mcg/actuation 1 - 2 puff inhalation Q4H PRN 01/20/21 11/10/23 Rx aerosol inhaler Shortness Of Breath #18 grams omeprazole 20 mg capsule,delayed 20 mg PO DAILY PRN Acid Reflux 02/10/21 11/10/23 History release atenolol 50 mg tablet 50 mg PO QAM #90 tabs 04/08/22 11/10/23 Rx methocarbamol 500 mg tablet 500 mg PO BID PRN neck spasms 30 06/23/23 11/10/23 Rx days #60 tabs topiramate 200 mg tablet 200 mg PO BID 90 days #180 tabs 10/18/23 11/10/23 Rx amlodipine 10 mg tablet 10 mg PO QAM 11/10/23 11/10/23 History calcium carbonate 600 mg calcium 600 mg PO QAM 11/10/23 11/10/23 History (1,500 mg) tablet cholecalciferol (vitamin D3) 50 100 mcg PO DAILY 11/10/23 11/10/23 History mcg (2,000 unit) tablet empagliflozin 10 mg tablet 10 mg PO QAM 11/10/23 11/10/23 History (Jardiance) fluticasone furoate 200 1 inh inhalation QAM 11/10/23 11/10/23 History mcg-vilanterol 25 mcg/dose inhalation powder (Breo Ellipta) levothyroxine 75 mcg tablet 75 mcg PO QAM 11/10/23 11/10/23 History (Synthroid) lorazepam 1 mg tablet 0.5 - 1 mg PO DAILY PRN Anxiety 11/10/23 11/10/23 History oxybutynin chloride 10 mg 10 mg PO QAM 11/10/23 11/10/23 History tablet,extended release 24 hr semaglutide 0.25 mg or 0.5 mg (2 0.25 mg subcut WK 11/10/23 11/10/23 History mg/3 mL) subcutaneous pen injector (Ozempic) sertraline 25 mg tablet 25 mg PO QAM 11/10/23 11/10/23 History sodium bicarbonate 650 mg tablet 650 mg PO BID 11/10/23 11/10/23 History Past Med/Surg History Medical History CKD (chronic kidney disease), stage IV Hyperactivity of bladder Insomnia Vitamin D deficiency Rosacea Postmenopausal atrophic vaginitis Osteoporosis Mild aortic regurgitation Hypothyroidism, postablative Diabetic nephropathy associated with type 2 diabetes mellitus Chronic sinusitis Chronic cerebral ischemia Asthma Anxiety disorder Anemia due to chronic kidney disease Allergic rhinitis Adhesive capsulitis of left shoulder Seizure disorder Dyslipidemia Hypertension Type 2 diabetes mellitus Hx of breast cancer (03/31/13) Cervical radiculopathy at C8 Surgical History H/O hysterectomy with oophorectomy Hx of lumpectomy RT History of hysterectomy History of colonoscopy History of tooth extraction History of cataract surgery History of cardiac cath 2013/NO STENTS Family History Mother Family history of diabetes mellitus Breast cancer Father Family history of diabetes mellitus Atrial fibrillation Cardiac disorder Depression Sister Cardiac disorder Social History Smoking Status: Never smoker Second Hand Exposure: No; Do You Dip or Chew Tobacco: No; Hx Alcohol Use: No Hx Substance Use: No Preferred Language: Bengali Communication Ability: Effective Visual Impairment: Partially Limited Hearing Ability: Normal Oracle Adf Consultant Required: No Beliefs That Will Affect Care: None Current Living Situation: Family Current Living Situation Comment: LIVES WITH SON Feels Safe at Home: Yes Safety Concerns: Feels Safe At This Time Childhood Exposure to Second-Hand Smoke: Yes caffeine: Yes Dental Care, Regularly: Yes Physical Activity Frequency: Daily Seatbelt Use: always Sunscreen Use: Yes Assistive Devices: None Review of Systems All systems reviewed & are unremarkable except as noted in HPI & below Physical Exam Constitutional: WD/WN, vitals as above Neck: trachea midline, no thyromegaly Respiratory: normal respiratory effort, lungs clear to auscultation Cardiovascular: RRR, no murmur, no edema Gastrointestinal (Abdomen): normal bowel sounds, soft, nontender, no hepatosplenomegaly ASA Classification ASA ASA3 Results & Data Vital Signs (Past 12 Hours) Vital Signs Temp Pulse Pulse Resp BP Pulse Ox O2 Del Method 11/15/23 07:22 36.7 C 75 19 141/53 H 92 Room Air 11/15/23 02:53 36.7 C 69 18 153/68 H 97 Room Air 11/14/23 23:00 61 11/14/23 23:00 36.5 C 67 14 127/77 97 Room Air Code Status & VTE Plan VTE Prophylaxis Plan VTE Prophylaxis will be ordered: Yes
--- NOTE | 2023-11-15 09:02 | Anesthesiology Consultation ---
Date of Service November 15, 2023 Assessment & Plan Chart Review Chart Review: Acceptable Risk for Surgery and Patient NOT seen in Pre Admission Testing Consults Requested none History Surgery Operation Date: 11/15/23 16:30 Proposed Procedures p Esophagogastroduodenoscopy Dr. Chaudhry - Licha Chaudhry Jr, MD Height/Weight Height: 4 ft 6 in Weight: 52.3 kg Allergies Allergy/AdvReac Type Severity Reaction Status Date / Time baclofen Allergy Unknown Confusion Verified 11/15/23 08:54 lamotrigine Allergy Unknown UNKNOWN Verified 11/15/23 08:54 phenytoin Allergy Unknown UNSURE Verified 11/15/23 08:54 fentanyl AdvReac Severe MARKED Verified 11/15/23 08:54 CONFUSION W/ ABSENCE OF SEDATION midazolam AdvReac Severe MARKED Verified 11/15/23 08:54 CONFUSION W/ ABSENCE OF SEDATION Medications Home Medications Medication Instructions Recorded Confirmed Last Taken aspirin 81 mg tablet,delayed 81 mg PO QAM 07/01/18 11/10/23 11/10/23 release (Aspir-) cetirizine 10 mg tablet 10 mg PO BID 05/25/19 11/10/23 11/10/23 lancets 33 gauge (OneTouch Delica #100 ea 05/25/19 02/10/21 Unknown Lancets) ondansetron HCl 4 mg tablet 4 mg PO Q6H PRN Nausea 05/25/19 11/10/23 Unknown (Zofran) blood sugar diagnostic (OneTouch #200 ea 08/15/19 02/10/21 Unknown Verio test strips) atorvastatin 40 mg tablet 40 mg PO HS #90 tabs 10/16/20 11/10/23 11/09/23 albuterol sulfate 90 mcg/actuation 1 - 2 puff inhalation Q4H PRN 01/20/21 11/10/23 Unknown aerosol inhaler Shortness Of Breath #18 grams omeprazole 20 mg capsule,delayed 20 mg PO DAILY PRN Acid Reflux 02/10/21 11/10/23 Unknown release atenolol 50 mg tablet 50 mg PO QAM #90 tabs 04/08/22 11/10/23 11/10/23 methocarbamol 500 mg tablet 500 mg PO BID PRN neck spasms 30 06/23/23 11/10/23 Unknown days #60 tabs topiramate 200 mg tablet 200 mg PO BID 90 days #180 tabs 10/18/23 11/10/23 11/10/23 amlodipine 10 mg tablet 10 mg PO QAM 11/10/23 11/10/23 11/10/23 calcium carbonate 600 mg calcium 600 mg PO QAM 11/10/23 11/10/23 11/10/23 (1,500 mg) tablet cholecalciferol (vitamin D3) 50 100 mcg PO DAILY 11/10/23 11/10/23 Unknown mcg (2,000 unit) tablet empagliflozin 10 mg tablet 10 mg PO QAM 11/10/23 11/10/23 11/10/23 (Jardiance) fluticasone furoate 200 1 inh inhalation QA 11/10/23 11/10/23 11/10/23 mcg-vilanterol 25 mcg/dose inhalation powder (Breo Ellipta) levothyroxine 75 mcg tablet 75 mcg PO QA 11/10/23 11/10/23 11/10/23 (Synthroid) lorazepam 1 mg tablet 0.5 - 1 mg PO DAILY PRN Anxiety 11/10/23 11/10/23 Unknown oxybutynin chloride 10 mg 10 mg PO QA 11/10/23 11/10/23 11/10/23 tablet,extended release 24 hr semaglutide 0.25 mg or 0.5 mg (2 0.25 mg subcut WK 11/10/23 11/10/23 11/07/23 mg/3 mL) subcutaneous pen injector (Ozempic) sertraline 25 mg tablet 25 mg PO QAM 11/10/23 11/10/23 11/10/23 sodium bicarbonate 650 mg tablet 650 mg PO BID 11/10/23 11/10/23 11/10/23 Active Medications Generic Name Dose Route Start Last Admin Trade Name Freq PRN Reason Stop Dose Admin Acetaminophen 650 mg 11/10/23 16:15 11/11/23 05:53 Acetaminophen 325 Mg Tab PO 12/10/23 16:14 650 mg Q4H PRN Administration Pain or Fever Amlodipine Besylate 10 mg 11/11/23 09:00 11/15/23 08:17 Amlodipine Besylate 5 Mg Tab PO 12/11/23 08:59 10 mg QAM CARTER Administration Aspirin 81 mg 11/11/23 09:00 11/14/23 07:56 Aspirin 81 Mg Ectab PO 12/11/23 08:59 81 mg QAM CARTER Administration Atenolol 50 mg 11/11/23 09:00 11/15/23 08:16 Atenolol 50 Mg Tablet PO 12/11/23 08:59 50 mg QAM CARTER Administration Atorvastatin Calcium 40 mg 11/10/23 21:00 11/14/23 20:25 Atorvastatin 40 Mg Tab PO 12/10/23 20:59 40 mg HS CARTER Administration Calcium Carbonate 1,250 mg 11/11/23 09:00 11/14/23 07:57 Calcium Carbonate 1250mg Tab PO 12/11/23 08:59 1,250 mg QAM CARTER Administration Cetirizine HCl 10 mg 11/10/23 21:00 11/14/23 20:25 Cetirizine Hcl 10 Mg Tablet PO 12/10/23 20:59 10 mg BID CARTER Administration Dextrose 25 - 50 ml 11/10/23 16:00 11/10/23 21:40 Dextrose 50% 50 Ml Syringe IV 12/10/23 15:59 50 ml UD PRN Administration Hypoglycemia Protocol Protocol Fluticasone/Vilanterol 1 puffs 11/11/23 09:00 11/15/23 08:14 Fluticasone/Vilanterol 200/25mcg 14 Puffs/Inhaler INH 12/11/23 08:59 1 puffs QAM CARTER Administration Heparin Sodium (Porcine) 5,000 units 11/12/23 21:00 11/14/23 20:26 Heparin Sod 5,000 Unit/0.5 Ml Vial SQ 12/12/23 20:59 5,000 units Q12 CARTER Administration Hydralazine HCl 5 mg 11/11/23 12:12 11/12/23 06:30 Hydralazine Hcl 20 Mg/Ml Vial IV 12/11/23 12:11 5 mg Q6H PRN Administration Hypertension Promethazine HCl 12.5 mg/ 50.5 mls @ 202 mls/hr 11/10/23 19:03 11/13/23 17:22 Sodium Chloride IV 12/10/23 19:02 Infused Q6H PRN Infusion Nausea And Vomiting Acetaminophen 700 mg/ EMPTY 70 mls @ 400 mls/hr 11/11/23 21:30 11/13/23 17:01 BAG IV 12/11/23 21:29 Infused Q6H PRN Infusion Pain/Fever Protocol Pantoprazole Sodium 40 mg/ 10 mls @ 5 mls/min 11/13/23 16:00 11/15/23 08:14 Syringe IV 12/13/23 15:59 5 mls/min BID CARTER Administration Magnesium Sulfate/Dextrose 1 gm in 100 mls @ 50 mls/hr 11/15/23 08:00 11/15/23 08:14 Magnesium Sulfate / D5w IV 11/15/23 11:59 50 mls/hr Q2H CARTER Administration Insulin Aspart 0 units 11/13/23 18:00 11/15/23 06:36 Insulin Aspart Per Unit Charge SC 12/13/23 07:29 Not Given Q6 CARTER Protocol Levothyroxine Sodium 75 mcg 11/11/23 06:30 11/15/23 06:41 Levothyroxine Sodium 75 Mcg Tablet PO 12/11/23 06:29 75 mcg DAILYBB CARTER Administration Ondansetron HCl 4 mg 11/10/23 19:02 11/13/23 15:34 Ondansetron Inj 2 Mg/Ml 2 Ml Vial IV 12/10/23 19:01 4 mg Q6H PRN Administration Nausea And Vomiting Oxybutynin Chloride 10 mg 11/11/23 09:00 11/15/23 08:15 Oxybutynin Chloride Xl 5 Mg Tabcr PO 12/11/23 08:59 10 mg QAM CARTER Administration Sertraline HCl 25 mg 11/11/23 09:00 11/15/23 08:16 Sertraline Hcl 50 Mg Tablet PO 12/11/23 08:59 25 mg QAM CARTER Administration Sodium Bicarbonate 650 mg 11/10/23 21:00 11/14/23 20:24 Sodium Bicarbonate 650 Mg Tab PO 12/10/23 20:59 650 mg BID CARTER Administration Topiramate 200 mg 11/10/23 21:00 11/15/23 08:15 Topiramate 100 Mg Tab PO 12/10/23 20:59 200 mg BID CARTER Administration Vitamin D 4,000 units 11/11/23 09:00 11/14/23 07:59 Cholecalciferol 1,000 Units 25 Mcg Tab PO 12/11/23 08:59 4,000 units DAILY CARTER Administration NPO Date Last Intake of Fluids: 11/15/23 Time Last Intake of Fluids: 08:00 Date Last Intake of Solids: 11/14/23 Time Last Intake of Solids: 07:00 Past Medical History Medical History CKD (chronic kidney disease), stage IV Hyperactivity of bladder Insomnia Vitamin D deficiency Rosacea Postmenopausal atrophic vaginitis Osteoporosis Mild aortic regurgitation Hypothyroidism, postablative Diabetic nephropathy associated with type 2 diabetes mellitus Chronic sinusitis Chronic cerebral ischemia Asthma Anxiety disorder Anemia due to chronic kidney disease Allergic rhinitis Adhesive capsulitis of left shoulder Seizure disorder Dyslipidemia Hypertension Type 2 diabetes mellitus Hx of breast cancer (03/31/13) Cervical radiculopathy at C8 Past Family History Family History Mother Family history of diabetes mellitus Breast cancer Father Family history of diabetes mellitus Atrial fibrillation Cardiac disorder Depression Sister Cardiac disorder Past Surgical History Surgical History H/O hysterectomy with oophorectomy Hx of lumpectomy RT History of hysterectomy History of colonoscopy History of tooth extraction History of cataract surgery History of cardiac cath 2013/NO STENTS Social History Smoking Status: Never smoker Do You Dip or Chew Tobacco: No Hx Alcohol Use: No Hx Substance Use: No substance use type: does not use Physical Exam Vital Signs Last Vital Signs Temp 36.1 C L 11/15/23 08:54 Pulse 65 11/15/23 08:54 Resp 16 11/15/23 08:54 BP 159/70 H 11/15/23 08:54 Pulse Ox 96 11/15/23 08:54 O2 Del Method Room Air 11/15/23 08:54 Constitutional WD/WN, vitals as above no acute distress Eyes PERRL, conjunctivae normal, anicteric sclerae ENMT Ears: no external ear abnormality Nose: no external nose abnormality Mouth: + dry oral mucous membranes Neck trachea midline, no thyromegaly Respiratory normal respiratory effort, lungs clear to auscultation Cardiovascular RRR, no murmur, no edema Rate/Rhythm: regular rate and regular rhythm Vessels: normal peripheral pulses Extremities: no edema Gastrointestinal (Abdomen) normal bowel sounds, soft, nontender, no hepatosplenomegaly Musculoskeletal no cyanosis or clubbing, extremities motor strength 5/5 Skin no rashes, warm and dry Neurologic PERRL, EOMI, accommodation nl, no face palsy, no dysarthria Psychiatric A+Ox3, euthymic affect Testing Laboratory Results 11/15/23 05:28 11/15/23 05:28 PT 10.9 Seconds (9.0-12.0) 11/10/23 09:50 INR 1.0 (0.9-1.1) 11/10/23 09:50 Urine Color Yellow 11/11/23 03:11 Urine Appearance Clear (Clear) 11/11/23 03:11 Urine pH 6.0 (4.5-7.5) 11/11/23 03:11 Ur Specific [place] 1.011 (1.000-1.030) 11/11/23 03:11 Urine Protein Negative (Negative) 11/11/23 03:11 Urine Glucose (UA) 3+ (Negative) H 11/11/23 03:11 Urine Ketones 1+ (Negative) H 11/11/23 03:11 Urine Nitrite Negative (Negative) 11/11/23 03:11 Ur Leukocyte Esterase Negative (Negative) 11/11/23 03:11 11/15/23 11/15/23 06:24 01:12 POC Glucose 109 H 98 Electrocardiogram Date: 11/10/23 Blood Pressure : / mmHG Vent. Rate : 061 BPM Atrial Rate : 000 BPM P-R Int : 000 ms QRS Dur : 064 ms QT Int : 486 ms P-R-T Axes : 000 037 -13 degrees QTc Int : 489 ms Poor data quality, interpretation may be adversely affected Sinus rhythm Possible Old Septal infarct (cited on or before 10-NOV-2023) Nonspecific ST and T wave abnormality Inferior leads Abnormal ECG When compared with ECG of 10-NOV-2023 09:41, No significant change Confirmed by Herber Zayas ([id number]) on 11/10/2023 1:56:39 PM Chest X-Ray Date: 11/10/23 XR chest 1V portable CLINICAL HISTORY: weakness, abdominal pain COMPARISON STUDY: Chest radiograph August 08, 2019. Chest CT September 24, 2014. FINDINGS: Lung volumes are normal. Lungs are clear. There is no pneumothorax or pleural effusion. Cardiac size is normal. Mediastinal contours are normal. There is no evidence for pulmonary edema. IMPRESSION: No acute cardiopulmonary findings. Echocardiogram Date: 11/11/23 EF: 65-70 LV Function: normal RWMA: + none Other Findings: + LVH (mod) Valvular Disease: + no significant valvular disease
--- NOTE | 2023-11-15 09:30 | GI REPORT ---
Patient Name: Poppy Mars Procedure Date: 11/15/2023 9:01 AM Date of : 1950 Admit Type: Inpatient Age: 73 Gender: Female Attending MD: Licha Chaudhry MD, Procedure: Upper GI endoscopy Providers: Licha Chaudhry MD Referring MD: Escobar Hernandez Md Indications: Epigastric abdominal pain, Dysphagia Medicines: Propofol per Anesthesia Complications: No immediate complications. Estimated Blood Loss: Estimated blood loss: none. Procedure: Pre-Anesthesia Assessment: - Prior to the procedure, a History and Physical was performed, and patient medications and allergies were reviewed. The patient's tolerance of previous anesthesia was also reviewed. The risks and benefits of the procedure and the sedation options and risks were discussed with the patient. All questions were answered, and informed consent was obtained. Prior Anticoagulants: The patient has taken no anticoagulant or antiplatelet agents. ASA Grade Assessment: III - A patient with severe systemic disease. After reviewing the risks and benefits, the patient was deemed in satisfactory condition to undergo the procedure. After obtaining informed consent, the endoscope was passed under direct vision. Throughout the procedure, the patient's blood pressure, pulse, and oxygen saturations were monitored continuously. The Endoscope was introduced through the mouth, and advanced to the second part of duodenum. The upper GI endoscopy was accomplished without difficulty. The patient tolerated the procedure well. Findings: No endoscopic abnormality was evident in the esophagus to explain the patient's complaint of dysphagia. It was decided, however, to proceed with dilation of the entire esophagus. A guidewire was placed and the scope was withdrawn. Dilation was performed with a Savary dilator with no resistance at 54 Fr. The stomach was normal. The examined duodenum was normal. Impression: - No endoscopic esophageal abnormality to explain patient's dysphagia. Esophagus dilated. Dilated. - Normal stomach. - Normal examined duodenum. - No specimens collected. Recommendation: - Patient has a contact number available for emergencies. The signs and symptoms of potential delayed complications were discussed with the patient. Return to normal activities tomorrow. Written discharge instructions were provided to the patient. - Resume previous diet. - Return patient to hospital [facility] for ongoing care. Licha Chaudhry MD 11/15/2023 9:30:07 AM Note Initiated On: 11/15/2023 9:01 AM Number of Addenda: 0 I attest to the content of the Intraoperative Record and orders documented therein, exceptions below {[id number]}
[2023-11-15] MEDS ORDERED: PROPOFOL IV EMULSION 10 MG/ML 20 ML VIAL IV ONE (09:38)
[2023-11-15] MEDS ORDERED: LIDOCAINE 2% 2 ML VIAL/AMP(20MG/ML) INFIL ONE (09:38)
--- NOTE | 2023-11-15 10:32 | Anesthesiology Progress Note ---
Date of Service November 15, 2023 Anesthesia Post Procedure Vital Signs Vital Signs: Temp Pulse Pulse Resp BP BP Pulse Ox 11/15/23 10:05 65 20 173/74 H 97 11/15/23 09:48 68 18 160/82 H 97 11/15/23 09:34 78 16 122/72 97 11/15/23 08:54 36.1 C L 65 16 159/70 H 96 11/15/23 08:00 61 11/15/23 07:22 36.7 C 75 19 141/53 H 92 11/15/23 02:53 36.7 C 69 18 153/68 H 97 11/14/23 23:00 61 11/14/23 23:00 36.5 C 67 14 127/77 97 11/14/23 19:00 36.3 C L 66 18 142/72 H 98 11/14/23 16:41 58 L 11/14/23 15:36 36.6 C 65 17 119/72 97 11/14/23 11:34 36.7 C 73 16 117/68 97 O2 Del Method 11/15/23 10:05 Room Air 11/15/23 09:48 Room Air 11/15/23 09:34 Room Air 11/15/23 08:54 Room Air 11/15/23 08:00 11/15/23 07:22 Room Air 11/15/23 02:53 Room Air 11/14/23 23:00 11/14/23 23:00 Room Air 11/14/23 19:00 Room Air 11/14/23 16:41 11/14/23 15:36 Room Air 11/14/23 11:34 Room Air Pain Intensity Medial Head: Pain Intensity: 7 Transfer of Care Handoff Completed per policy Notes Mental Status: alert / awake / arousable Patient Amnestic to Procedure: Yes Nausea / Vomiting: adequately controlled Pain: adequately controlled Airway Patency, RR, SpO2: stable & adequate BP & HR: stable & adequate Hydration State: stable & adequate Anesthetic Complications: no major complications apparent and Pt Satisfied with anesthetic care
[2023-11-15] MEDS: CHOLECALCIFEROL 1,000 UNITS 25 MCG TAB PO SCH (11:46)
[2023-11-15] MEDS: CALCIUM CARBONATE 1250MG TAB PO SCH (11:47)
[2023-11-15] MEDS: CETIRIZINE HCL 10 MG TABLET PO SCH ×2 (11:47→20:45)
[2023-11-15] MEDS: ASPIRIN 81 MG ECTAB PO SCH (11:47)
[2023-11-15] MEDS: SODIUM BICARBONATE 650 MG TAB PO SCH ×2 (11:47→20:46)
--- NOTE | 2023-11-15 12:20 | Pharmacy Report ---
Pharmacy Glycemic Short Note 2 - Date of Service November 15, 2023 - Glycemic Short BSG Results (Last 24 hours): 11/14/23 11/15/23 11/15/23 12:23 01:12 05:28 Glucose 119 H POC Glucose 92 98 11/15/23 11/15/23 06:24 11:37 Glucose POC Glucose 109 H 116 H OUTPATIENT ANTIDIABETIC REGIMEN: * Jardiance 10 mg PO daily * Ozempic 0.25 mg SC every Wednesday * HbA1c: 8.3% (09/09/23 - [facility]) ASSESSMENT: 11/15: * BSGs on the low end of normal the last 24h: 98-109mg/dL. Received 0 units of insulin yesterday. * Has been NPO now post EGD, diet advanced to clears. * Will resume HS Lantus for tonight per scale based upon BSG (hold if BSG less than 180mg/dl). Novolog q6 parameters unchanged. 11/14: * Poppy received 8 units of insulin yesterday, 5 basal + 3 bolus. BSGs were: [phone] mg/dL. * Fasting BSG is below goal at 106 mg/dL. Patient has been NPO since admission. Plan is for EGD tomorrow. Will hold off on any basal insulin moving forward until patient starts to eat. No change to Novolog. 11/12: * BSGs within goal the last 24h: [phone]/dL. Received 10 units of basal and 2 units of bolus insulin yesterday. * No documented PO intake since coming off of the drip. Now NPO for EGD later today. * Half dose Lantus given this AM. Will add an HS scale depending on BSG in the event she is ordered a diet this evening and BSGs climb. Novolog q6 while NPO with a loosened carb ratio given prolonged NPO (once diet resumed). 11/11: * BSGs largely within goal the last 24h. Insulin drip was transitioned to SQ early this AM (AG-9, HCO3-18) . Received 10 units of Lantus X 1 ~ 0400. * Diet ordered/fluids discontinued this afternoon, however not currently tolerating PO. Plan for EGD tomorrow so will be NPO again. * Hold additional basal for today. Novolog q4 with a severe stress scale. Will reassess basal tomorrow. 11/10: * 73 yo F admitted on 11/10/23 secondary to euglycemic DKA. Pharmacy has been consulted to assist with inpatient glycemic management. Patient is a Type 2 diabetic as an outpatient. Please refer to outpatient regimen and most recent HbA1c above. * Initial labs showed a BSG of 141 with AG 25, CO2 15, and pH 7.19. SCr is 2.07 mg/dL. * Per provider patient is to be started on insulin drip at 0.05 units/kg/hr which is 2.4 units/hr. RN is not to titrate this order and provider should be contacted for BSGs below 110 mg/dL or above 180 mg/dL (goal range). D10 is inf using as well at 125 mL/hr. * No repeat labs as of yet. Will monitor. * Possible transition later this evening if acidosis resolves. PLAN FOR INPATIENT GLYCEMIC CONTROL: * Hold outpatient oral diabetes medication and GLP1-RA * Basal insulin * Lantus 0/5 units HS based upon BSG * Bolus insulin - * NovoLog per scale ACHS or Q6hrs while NPO * Goal Range: Low 110 mg/dL - High 140 mg/dL * Correction Factor: 35 mg/dL/unit * Nutritional / Prandial insulin per carb ratio of 1 unit per 13 grams CHO consumed
[2023-11-15] MEDS: ACETAMINOPHEN 325 MG TAB PO PRN (14:08)
[2023-11-15] MEDS: ONDANSETRON INJ 2 MG/ML 2 ML VIAL IV PRN ×2 (14:12→14:15)
--- NOTE | 2023-11-15 14:21 | Hospitalist Progress Note ---
Date of Service November 15, 2023 Assessment & Plan (1) Dysphagia: (2) Hypertensive urgency: (3) DKA (diabetic ketoacidosis): Plan 73-year-old lady with PMH of T2DM, HLD, hypothyroidism, HTN, CKD stage IV, seizure disorder, breast cancer presented to the ED 11/10 for evaluation of headache, nausea, vomiting. Patient reports having nausea, vomiting for about 6 days [employer], has not been able to swallow pills and solid food [has food sticking sensation in her esophagus] for about the same duration. She is being managed for the following: Diabetic ketoacidosis Uncontrolled T2DM Patient presenting with reports of nausea and vomiting Admitting labs suggestive of anion gap acidosis, urinary ketones positive. She has been on Jardiance since 06/23 and Ozempic since about 2 weeks ago [employer] A1c of 8.3 on 09/2023 Status post DKA protocol, bridged with long-acting on 11/11 am. Anion gap closed, acidosis resolved. public health educator consult. Appreciate eval and recs. DC Jardiance (given euglycemic DKA) and Ozempic (given normal body weight, already poor appetite and constipation). Consider tradjenta or low dose januvia. Pt reports no issues w/ glyburide and prandin in the past; reports she was changed to current meds supposedly for better outcome/lower side effects. d/w patient, made her aware the need to dc her ozempic and jardiance. D/w her regarding starting januvia; if not possible then she states she is ok w/ going back to prandin. Follow-up with diabetic clinic closely upon discharge. SSI while inpatient, glycemic pharmacy on board, appreciate recs. Hypertensive urgency: Admitting blood pressure 218/117. Longstanding history of uncontrolled hypertension with CKD stage IV Continue home amlodipine, atenolol. as able As needed IV blood pressure medications. Abnormal CT of the abdomen: Dysphagia: Admitting CT ABD/pelvis showing apparent wall thickening of the gastric cardia. This is probably artifactual. However, gastritis or an underlying mucosal lesion cannot be excluded. Patient also complains of dysphagia and pills getting stuck in her chest for about 6 days [employer] GI consult, status post esophageal dilatation 11/15. Patient reports improvement in nausea and vomiting, advance diet as tolerated to soft diet. Other chronic medical conditions: Continue with/resume home meds as and when a ble. Complex partial seizure: Chronic, stable. Continue Topamax. CKD stage IV: Baseline creatinine high oneslow twos. Creatinine is stable. Continue bicarbonate tablets. Asthma: Chronic, stable. No signs of acute exacerbation. Continue home inhalers. Depression: Chronic, stable. Continue home meds. DVT prophylaxis: Heparin subcu - hold in after night dose for scope in AM. Full code Disposition: Pending advancement of diet/improvement in diet tolerance. Likely DC tomorrow. Admission and Anticipated Discharge Date Admission Date: November 10, 2023 Subjective Patient was seen and examined at bedside. Patient was lying in bed, on room air, NAD. Status post esophageal dilatation 11/15. Patient reports feeling better. Patient denies nausea and vomiting. Patient will be started on clear liquid diet, advance diet as tolerated. Patient reports moving bowel. Physical Exam Physical Exam: GENERAL: Alert and oriented x3. NAD, on RA. HEENT: No pallor, no icterus. Pupils equal, round and reactive to light. Oral mucosa moist. NECK: No JVD, no neck masses. HEART: S1 and S2 heard. Regular rate and rhythm. No murmur, no gallop. RESPIRATORY SYSTEM: Normal AP diameter. No accessory muscle use. No wheezing, no crackles. ABDOMEN: Soft, bowel sounds present, nontender, no distention. CENTRAL NERVOUS SYSTEM: No facial droop. Speech is clear. Obeys simple commands. Moves extremities. EXTREMITIES: No edema, no erythema seen. Results & Data Results & Data Vital Signs (Past 12 Hours) Vital Signs Temp Pulse Pulse Resp BP Pulse Ox O2 Del Method 11/15/23 10:46 36.7 C 68 19 155/77 H 98 Room Air 11/15/23 10:05 65 20 173/74 H 97 Room Air 11/15/23 09:48 68 18 160/82 H 97 Room Air 11/15/23 09:34 78 16 122/72 97 Room Air 11/15/23 08:54 36.1 C L 65 16 159/70 H 96 Room Air 11/15/23 08:00 61 11/15/23 07:22 36.7 C 75 19 141/53 H 92 Room Air 11/15/23 02:53 36.7 C 69 18 153/68 H 97 Room Air (3) DKA (diabetic ketoacidosis) Diabetes mellitus complication detail: without coma Diabetes mellitus type: type 2 Qualified Code(s): E11.10 - Type 2 diabetes mellitus with ketoacidosis without coma
[2023-11-15] MEDS: ATORVASTATIN 40 MG TAB PO SCH (20:47)
[2023-11-15] MEDS ORDERED: LANTUS PER UNIT CHARGE SC SCH (21:00)
[2023-11-15] MEDS: HEPARIN SOD 5,000 UNIT/0.5 ML VIAL SQ SCH (21:50)
[2023-11-16] MEDS: INSULIN ASPART PER UNIT CHARGE SC SCH ×4 (00:32→12:47)
[2023-11-16] MEDS: LEVOTHYROXINE SODIUM 75 MCG TABLET PO SCH (05:25)
[2023-11-16 06:57] LABS: Calcium 8.5 mg/dl (8.6-10.3); Creatinine Clr Calc Pharmacy 18.4 ml/min; Est GFR (African American) 34.8 ml/min; Magnesium 2.3 mg/dl (1.7-2.4); Potassium 3.5 mmol/L (3.5-5.1)
[2023-11-16] MEDS ORDERED: Nursing to Pharmacy Communication SCH (07:30)
[2023-11-16] MEDS: CALCIUM CARBONATE 1250MG TAB PO SCH (08:34)
[2023-11-16] MEDS: CHOLECALCIFEROL 1,000 UNITS 25 MCG TAB PO SCH (08:36)
[2023-11-16] MEDS: ATENOLOL 50 MG TABLET PO SCH (08:37)
[2023-11-16] MEDS: amLODIPine BESYLATE 5 MG TAB PO SCH (08:37)
[2023-11-16] MEDS: SERTRALINE HCL 50 MG TABLET PO SCH (08:38)
[2023-11-16] MEDS: SODIUM BICARBONATE 650 MG TAB PO SCH (08:39)
[2023-11-16] MEDS: ASPIRIN 81 MG ECTAB PO SCH (08:39)
[2023-11-16] MEDS: OXYBUTYNIN CHLORIDE XL 5 MG TABCR PO SCH (08:40)
[2023-11-16] MEDS: FLUTICASONE/VILANTEROL 200/25MCG 14 PUFFS/INHALER INH SCH (08:41)
[2023-11-16] MEDS: CETIRIZINE HCL 10 MG TABLET PO SCH (08:41)
[2023-11-16] MEDS: PANTOprazole 40 MG in SYRINGE 0 ML IV SCH (08:42)
[2023-11-16] MEDS: HEPARIN SOD 5,000 UNIT/0.5 ML VIAL SQ SCH (09:25)
[2023-11-16] MEDS: TOPIRAMATE 100 MG TAB PO SCH (09:26)
--- NOTE | 2023-11-16 12:44 | Gastroenterology Progress Note ---
Date of Service November 16, 2023 Assessment & Plan (1) Dysphagia: Plan: Problems resolved with normal EGD and therapeutic empiric dilatation. Okay with me to discharge although I wonder if a lot of her issues weren't related to Ozempic Admission and Anticipated Discharge Date Admission Date: November 10, 2023 Subjective Feeling great. Eating everything she gets. No pain, No trouble swallowing Physical Exam Physical Exam: She looks well Constitutional: WD/WN, vitals as above Results & Data Vital Signs (Past 12 Hours) Vital Signs Temp Pulse Resp BP Pulse Ox O2 Del Method 11/16/23 10:29 36.5 C 67 17 144/86 H 97 Room Air 11/16/23 07:04 36.9 C 83 16 124/60 96 Room Air 11/16/23 03:23 37.2 C 65 19 149/71 H 99 Room Air
--- NOTE | 2023-11-16 13:55 | Discharge Summary ---
Date of Service November 16, 2023 Admission HPI Per Admitting Provider 73-year-old female PMH DM type II, dyslipidemia, hypothyroidism, HTN, CKD stage IV, seizure disorder, history of breast cancer, and other problems listed below who presents to the ED for evaluation of headache, nausea, vomiting. History is obtained from the patient and review of outpatient PCP records. Patient reports that for the past 6 days, she has had a headache along with nausea and several episodes of vomiting. Patient started taking Ozempic 2 weeks ago. She also states that whenever she takes her pills, she feels like they are getting stuck in her chest. She denies chest pain and shortness of breath. Denies hematemesis, coffee-ground emesis, bright open proximal, dark tarry stools. No fevers or chills. Denies lightheadedness, dizziness, diaphoresis, syncopal events. No urinary symptoms. In the ED, patient is found to be in euglycemic DKA with VBG pH 7.19, bicarb 15, anion gap 25, glucose 141. Patient was given IVF and started on insulin drip. Admission Exam Per Admitting Provider Constitutional: WD/WN, vitals as above no acute distress Eyes: PERRL, conjunctivae normal, anicteric sclerae ENMT: Ears: no external ear abnormality Nose: no external nose abnormality Mouth: + dry oral mucous membranes Respiratory: normal respiratory effort, lungs clear to auscultation Cardiovascular: Rate/Rhythm: regular rate and regular rhythm Vessels: normal peripheral pulses Extremities: no edema Gastrointestinal (Abdomen): normal bowel sounds, soft, nontender, no hepatosplenomegaly Musculoskeletal: no cyanosis or clubbing, extremities motor strength 5/5 Skin: no rashes, warm and dry Neurologic: PERRL, EOMI, accommodation nl, no face palsy, no dysarthria Psychiatric: A+Ox3, euthymic affect Principal Diagnosis Dysphagia DKA Hypertensive urgency Discharge Exam GENERAL: Alert and oriented x3. NAD, on RA. HEENT: No pallor, no icterus. Pupils equal, round and reactive to light. Oral mucosa moist. NECK: No JVD, no neck masses. HEART: S1 and S2 heard. Regular rate and rhythm. No murmur, no gallop. RESPIRATORY SYSTEM: Normal AP diameter. No accessory muscle use. No wheezing, no crackles. ABDOMEN: Soft, bowel sounds present, nontender, no distention. CENTRAL NERVOUS SYSTEM: No facial droop. Speech is clear. Obeys simple commands. Moves extremities. EXTREMITIES: No edema, no erythema seen. Discharge Data Allergies Allergy/AdvReac Type Severity Reaction Status Date / Time baclofen Allergy Unknown Confusion Verified 11/15/23 08:54 lamotrigine Allergy Unknown UNKNOWN Verified 11/15/23 08:54 phenytoin Allergy Unknown UNSURE Verified 11/15/23 08:54 fentanyl AdvReac Severe MARKED Verified 11/15/23 08:54 CONFUSION W/ ABSENCE OF SEDATION midazolam AdvReac Severe MARKED Verified 11/15/23 08:54 CONFUSION W/ ABSENCE OF SEDATION Consultations 11/10/23 11:44 ED Decision to Admit Stat 11/10/23 16:15 Consult Gastroenterology Routine Procedures Performed Operation Date: 11/15/23 16:30 Actual Procedures p EGD Dilatation - Licha Chaudhry Jr, MD Ordered Studies 11/10/23 09:47 CT abd pelvis wo con Stat 11/11/23 21:30 CT head/brain wo con Stat Hospital Course (1) Dysphagia: (2) Hypertensive urgency: (3) DKA (diabetic ketoacidosis): Plan 73-year-old lady with PMH of T2DM, HLD, hypothyroidism, HTN, CKD stage IV, seizure disorder, breast cancer presented to the ED 11/10 for evaluation of headache, nausea, vomiting. 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 She was managed for the following: Diabetic ketoacidosis Uncontrolled T2DM Patient presenting with reports of nausea and vomiting Admitting labs suggestive of anion gap acidosis, urinary ketones positive. 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 Anion gap closed, acidosis resolved. senior health educator consult. Appreciate eval and recs. DC Jardiance (given euglycemic DKA) and Ozempic (given normal body weight, already poor appetite and constipation). Consider tradjenta or low dose januvia. Pt reports no issues w/ glyburide and prandin in the past; reports she was changed to current meds supposedly for better outcome/lower side effects. d/w patient, made her aware the need to dc her ozempic and jardiance. D/w her regarding starting januvia; if not possible then she states she is ok w/ going back to prandin. Januvia sent to her pharmacy. Follow-up with diabetic clinic closely upon discharge. SSI while inpatient, glycemic pharmacy on board, appreciate recs. Hypertensive urgency: Admitting blood pressure 218/117. Longstanding history of uncontrolled hypertension with CKD stage IV Continue home amlodipine, atenolol. BP has been better controlled. f/u PCP for skilled nursing monitoring. Abnormal CT of the abdomen: Dysphagia: Admitting CT ABD/pelvis showing apparent wall thickening of the gastric cardia. This is probably artifactual. However, gastritis or an underlying mucosal lesion cannot be excluded. 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 Patient reports improvement in nausea and vomiting, tolerating advancement of diet well. Other chronic medical conditions: Continue with/resume home meds as and when able. Complex partial seizure: Chronic, stable. Continue Topamax. CKD stage IV: Baseline creatinine high oneslow twos. Creatinine is stable. Continue bicarbonate tablets. Asthma: Chronic, stable. No signs of acute exacerbation. Continue home inhalers. Depression: Chronic, stable. Continue home meds. DVT prophylaxis: Heparin subcu Full code Patient is being discharged to home with following instruction at the point of discharge: Follow-up with your primary care physician within a week time and likely you will need labs CBC/CMP/magnesium/phosphorus. Because you presented with euglycemic DKA, your Jardiance has been discontinued. Given poor appetite and abdominal side effects, your Ozempic has been discontinued. You will be started on low-dose Januvia, continue to follow-up with the diabetic clinic, you will need close monitoring and up titration of your diabetic medication. Take your blood pressure medications as prior, measure blood pressure twice a day, maintain a log to take to your primary care physician for further evaluation/management of your blood pressure meds. You underwent esophageal dilatation, if you have recurrent problem of swallowing, follow-up with GI as an outpatient. Coordinate with your PCP office to set up the referral. Take your medications as prescribed. Please make sure that you are able to get your medications today by calling your pharmacy before you leave the hospital so that your treatment continuity is not broken. Home Health Attestation I certify that this patient is under my care and that I, or a physicians water quality assistant working with me, had a face to-face encounter that meets the home health qmny-go-dugw encounter requirements with this patient. The encounter with the patient was in whole, or in part, for the following medical condition, which is the primary reason for home health care (list medical condition): I certify that, based on my findings, the following services are medically necessary home health services: My clinical findings support the need for the above services because: Further, I certify that my clinical findings support that this patient is homebound (i.e. absences from home require considerable and taxing effort and are for medical reasons or buddhism services or infrequently or of short duration when for other reasons) because: Certification for Home Health Services: Based on the above findings, I certify that this patient is confined to the home and needs intermittent assisted care, physical therapy and/or speech therapy or continues to need occupational therapy. The patient is under my care, and I have initiated the establishment of the plan of care. This patient will be followed by a physician who will periodically review the plan of care. Total Time Total Time Spent Total Time Spent (In Minutes): 45 Discharge Plan Discharge Items Patient Disposition: Home - Self-Care Reason For Visit: DKA Discharge Diagnosis: Dysphagia DKA Hypertensive urgency Activity: Resume your previous activity Non-emergency contact: Primary Care Provider Call non-emergency contact if: you have any medication questions, your symptoms worsen and your temperature is above 101.5 Follow-up/Referrals: Bozena De DO [Primary Care Provider] - Diet: Carb Consistent or DM2 and Heart Healthy Diet Texture: Dental soft (bite-sized) Addtl Attending Provider Instructions: Follow-up with your primary care physician within a week time and likely you will need labs CBC/CMP/magnesium/phosphorus. Because you presented with euglycemic DKA, your Jardiance has been discontinued. Given poor appetite and abdominal side effects, your Ozempic has been discontinued. You will be started on low-dose Januvia, continue to follow-up with the diabetic clinic, you will need close monitoring and up titration of your diabetic medication. Take your blood pressure medications as prior, measure blood pressure twice a day, maintain a log to take to your primary care physician for further evaluation/management of your blood pressure meds. You underwent esophageal dilatation, if you have recurrent problem of swallowing, follow-up with GI as an outpatient. Coordinate with your PCP office to set up the referral. Take your medications as prescribed. Please make sure that you are able to get your medications today by calling your pharmacy before you leave the hospital so that your treatment continuity is not broken. Pending Studies at Discharge: No Stand-Alone Forms: My [facility] [place], Smoking Cessation Medications and DC Order Prescriptions: New Januvia 25 mg tablet 25 mg PO DAILY Qty: 30 0RF Continued (DME) OneTouch Verio test strips strip See Dose Instructions .ROUTE .MEDSUPPLY Qty: 200 3RF Dose Instruction: As directed Rx Instructions: TEST TWICE DAILY AND PRN--Dx: E11.9 Type 2 Diabetes--testing twice daily and as needed atorvastatin 40 mg tablet 40 mg PO HS Qty: 90 3RF albuterol sulfate 90 mcg/actuation HFA aerosol inhaler 1 - 2 puff INHALATION Q4H PRN (Reason: Shortness Of Breath) Qty: 18 2RF atenolol 50 mg tablet 50 mg PO QAM Qty: 90 0RF methocarbamol 500 mg tablet 500 mg PO BID PRN (Reason: neck spasms) 30 Days Qty: 60 3RF topiramate 200 mg tablet 200 mg PO BID 90 Days Qty: 180 1RF omeprazole 20 mg capsule,delayed release(DR/EC) 20 mg PO DAILY PRN (Reason: Acid Reflux) (DME) lancets [OneTouch Delica Lancets] 33 gauge misc See Dose Instructions .ROUTE .MEDSUPPLY Qty: 100 Rx Instructions: TEST TWICE DAILY. cetirizine 10 mg tablet 10 mg PO BID aspirin [Aspir-81] 81 mg Tablet,Delayed Release (Dr/Ec) 81 mg PO QAM ondansetron HCl [Zofran] 4 mg tablet 4 mg PO Q6H PRN (Reason: Nausea) sodium bicarbonate 650 mg tablet 650 mg PO BID sertraline 25 mg tablet 25 mg PO QAM oxybutynin chloride 10 mg tablet extended release 24hr 10 mg PO QAM Rx Instructions: take 1 tablet by mouth once qam levothyroxine [Synthroid] 75 mcg tablet 75 mcg PO QAM calcium carbonate 600 mg calcium (1,500 mg) tablet 600 mg PO QAM amlodipine 10 mg tablet 10 mg PO QAM lorazepam 1 mg tablet 0.5 - 1 mg PO DAILY PRN (Reason: Anxiety) Rx Instructions: take 1/2 to 1 tablet by mouth daily if needed for anxiety. fluticasone furoate-vilanterol [Breo Ellipta] 200-25 mcg/dose blister with device 1 inh INH QAM Rx Instructions: instead of advair cholecalciferol (vitamin D3) 50 mcg (2,000 unit) Tablet 100 mcg PO DAILY Discontinued Jardiance 10 mg tablet 10 mg PO QAM Rx Instructions: qam Ozempic 0.25 mg or 0.5 mg (2 mg/3 mL) pen injector 0.25 mg subcut WK Rx Instructions: Wednesday Discharge Orders: Discharge Order (Routine); Ordered 11/16/23 Ordered By: Escobar Villeda/Other Patient Handouts: Managing Type 2 Diabetes Admission Data Admit Date/Time: 11/10/23 13:12 Attending Provider: Escobar Hernandez Admit Provider: Jemma Knapp Primary Care Provider: Bozena De Other Providers: Jemma Knapp; Licha Chaudhry Jr
== END 2023-11-16 17:09 | disposition home or self-care (01) | DRG 638 ==
LOC: ED 09:34 → EDINP 13:12 → SUATTDRO 13:12 → 2E 18:01